=== PATIENT | female | born 1935 | race Caucasian/White ===

== ENCOUNTER 2016-09-13 17:55 | Emergency (ER) | payer MEDICARE ==
[2016-09-13] MEDS ORDERED: IPRATROPIUM-ALBUTEROL 3 ML NEB INHALATION STA (18:54)
[2016-09-13] MEDS ORDERED: methylPREDNISolone SOD SUCCI 125 MG/2 ML VIAL IV STA (19:04)
[2016-09-13] MEDS ORDERED: ALBUTEROL NEBULIZED 2.5 MG/3 ML INHALATION STA (19:05)
[2016-09-13] MEDS ORDERED: IPRATROPIUM 0.5 MG/2.5 ML NEBU INHALATION STA (19:05)
[2016-09-13 19:28] LABS: Basophils # (A) 0.1 k/uL (0-0.2); Basophils % (A) 1 %; CH 30.8; CHCM 34.3; Eosinophils # (A) 0.2 k/uL (0-0.7); Eosinophils % (A) 1 %; HGB 13.9 gm/dL (11.4-16.0); Luc # (Auto) 0.17; Luc % (Auto) 1; Lymphocytes # (A) 1.9 k/uL (1.0-4.8); Lymphocytes % (A) 14 %; MCH 29.8 pg (25.0-35.0); MCV 90.3 fL (80.0-100.0); Mean Platelet Volume 7.8; Monocytes # (A) 1.2 k/uL (0-1.0); Monocytes % (A) 9 %; Neutrophils # (A) 10.4 k/uL (1.3-7.7); Neutrophils % (A) 75 %; RBC 4.65 m/uL (3.80-5.40); RDW 15.1 % (11.5-15.5); WBC 13.8 k/uL (3.8-10.6)
--- NOTE | 2016-09-13 19:33 | ED ---
General Adult HPI <Denton Castillo - Last Filed: 09/13/16 21:25> - General Source: patient, RN notes reviewed Mode of arrival: wheelchair Limitations: no limitations <Deanne Domínguez - Last Filed: 09/13/16 21:44> - General Chief complaint: Shortness of Breath Stated complaint: SOB, cough Time Seen by Provider: 09/13/16 18:49 - History of Present Illness Initial comments: This is an 81-year-old female who presents with shortness of breath 2 days. Patient states that she has a history of COPD and this feels like a COPD exacerbation. Patient states she took 4 breathing treatments at home today but this has not helped her symptoms. Patient states she has also had a cough for 2 days, but denies fever/chills, headache. Patient also admits to congestion 2 days. Patient denies any sick contacts. Patient denies any recent chest pain , abdominal pain, nausea/vomiting/diarrhea, back pain, numbness, tingling, hematuria, headache, or visual changes, or any other complaints. (Deanne Domínguez) - Related Data Home Medications Medication Instructions Recorded Confirmed Apixaban [Eliquis] 5 mg PO BID 11/24/14 09/13/16 Potassium Chloride [Klor-Con 10] 10 meq PO DAILY 11/26/14 09/13/16 Fluticasone/Salmeterol [Advair 1 puff INHALATION RT-BID 12/14/14 09/13/16 500-50 Diskus] Omeprazole [PriLOSEC] 20 mg PO DAILY 06/06/15 09/13/16 Glimepiride [Amaryl] 2 mg PO BID 06/07/15 09/13/16 Albuterol Sulfate [Proair Hfa] 2 puff INHALATION RT-Q6H PRN 12/13/15 09/13/16 Levalbuterol Nebulized [Xopenex 1.25 mg INHALATION RT-TID PRN 12/13/15 09/13/16 Nebulized] Cyanocobalamin [Vitamin B-12] 500 mcg PO DAILY 05/20/16 09/13/16 Furosemide [Lasix] 40 mg PO BID 05/20/16 09/13/16 Nadolol [Corgard] 40 mg PO DAILY 09/09/16 01/03/17 Bullock Caplets 1 cap PO Q48H 05/20/16 09/13/16 Cholecalciferol [Vitamin D3] 5,000 unit PO DAILY 09/13/16 09/13/16 Previous Rx's Medication Instructions Recorded Verapamil [Isoptin] 80 mg PO TID #90 tab 12/16/15 Calcium Carbonate [Tums] 1,000 mg PO DAILY@1200 chew 07/22/16 predniSONE 40 mg PO DAILY 5 Days 09/13/16 Allergies Allergy/AdvReac Type Severity Reaction Status Date / Time diltiazem AdvReac Itching Verified 09/13/16 19:23 morphine AdvReac Confusion Verified 09/13/16 19:23 Review of Systems ROS Other: All systems not noted in ROS Statement are negative. <Denton Castillo - Last Filed: 09/13/16 21:25> ROS Other: All systems not noted in ROS Statement are negative. <Deanne Domínguez - Last Filed: 09/13/16 21:44> ROS Statement: Those systems with pertinent positive or pertinent negative responses have been documented in the HPI. Past Medical History Past Medical History: Atrial Fibrillation, Asthma, Chest Pain / Angina, Heart Failure, COPD, Diabetes Mellitus, GERD/Reflux, Hyperlipidemia, Hypertension, Myocardial Infarction ([place]), Osteoarthritis (OA), Pneumonia Additional Past Medical History / Comment(s): COPD, frequent fall with abrasions to L lower leg and L arm, Afib with RVR, NIIDM type II, osteoporosis, 2012 shingel, cardiac valvular disease(pt did'nt have knowlege of this), chronic anemia Last Myocardial Infarction Date:: 07/16/11 History of Any Multi-Drug Resistant Organisms: None Reported Past Surgical History: Appendectomy, Breast Surgery, Heart Catheterization, Tubal Ligation Additional Past Surgical History / Comment(s): benign lumpectomy rt breast, bronchoscopy 11/25/2014, colonoscopy, egd, bilat cataracts removed. 2010 VATS lt lung, 02/2011-cardiac cath-normal. Past Anesthesia/Blood Transfusion Reactions: No Reported Reaction Additional Past Anesthesia/Blood Transfusion Reaction / Comment(s): Pt has received blood in past without reaction Past Psychological History: No Psychological Hx Reported Additional Psychological History / Comment(s): Pt resides alone at [facility]. She uses either a cane or walker to ambulate. She drives. no outside services. Smoking Status: Never smoker Past Alcohol Use History: Occasional Past Drug Use History: None Reported - Past Family History Sister(s) Family Medical History: Cancer Additional Family Medical History / Comment(s): breast CA Mother Family Medical History: No Reported History Additional Family Medical History / Comment(s): from car accident Father Family Medical History: No Reported History Daughter(s) Family Medical History: Cancer Additional Family Medical History / Comment(s): breast CA <Deanne Domínguez - Last Filed: 09/13/16 21:44> General Exam <Denton Castillo - Last Filed: 09/13/16 21:25> Limitations: no limitations <Deanne Domínguez - Last Filed: 09/13/16 21:44> - General Exam Comments Initial Comments: General: The patient is awake and alert, in no distress, and does not appear acutely ill. Eye: Pupils are equal, round and reactive to light, extra-ocular movements are intact. No nystagmus. There is normal conjunctiva bilaterally. No signs of icterus. Mouth and throat: There are moist mucous membranes and no oral lesions. Neck: The neck is supple, there is no tenderness or JVD. Cardiovascular: There is a regular rate and rhythm. No murmur, rub or gallop is appreciated. Respiratory: Lung sounds are diminished with faint wheezes heard throughout, breath sounds are equal. No stridor, rales, or rhonchi. Gastrointestinal: Soft, non-distended, non-tender abdomen without masses or organomegaly noted. There is no rebound or guarding present. Bowel sounds are unremarkable. Musculoskeletal: Normal ROM, no tenderness. Strength 5/5. Sensation intact. Radial pulses equal bilaterally 2+. Neurological: A&O x 3. CN II-XII intact, There are no obvious motor or sensory deficits. Coordination appears grossly intact. Speech is normal. Skin: Skin is warm and dry and no rashes or lesions are noted. Psychiatric: Cooperative, appropriate mood & affect, normal judgment. (Deanne Domínguez) EKG Findings - EKG Comments: EKG Findings:: EKG was done at 1955 showing atrial fibrillation with a ventricular rate of 86 beats per minute, QRS duration 108, QTc 512. Lateral T wave inversion noted, previous EKG reviewed with similar findings. No acute ST changes. <Deanne Domínguez - Last Filed: 09/13/16 21:44> Medical Decision Making - Lab Data Result diagrams: 09/13/16 19:17 09/13/16 19:17 <Denton Castillo - Last Filed: 09/13/16 21:25> - Lab Data Result diagrams: 09/13/16 19:17 09/13/16 19:17 <Deanne Domínguez - Last Filed: 09/13/16 21:44> - Medical Decision Making Patient reevaluated by myself, Dr. Castillo. Patient resting comfortably in bed requesting discharge. Lung sounds with mild rhonchi. Results reviewed. Patient updated. (Denton Castillo) This is an 81-year-old female presents with exacerbation of COPD. On physical exam lung sounds are diminished with faint wheezing heard throughout. Patient' s O2 sat are 95% and respirations are 18. Patient is afebrile in the EC today. A chest x-ray was done and reviewed showing: No acute cardiopulmonary process. Suspect findings are chronic. Reported by Dr. Diaz. Patient was given 5 mg of albuterol and 0.5 of ipratropium nebulized. Patient was also given IV Solu-Medrol. Patient reported symptom relief after this. Patient's respiratory effort had improved at this point. Labs were drawn showing elevated white blood cell count at 13.8. Troponins and cardiac enzymes are negative. EKG was done at 195 showing atrial fibrillation with a ventricular rate of 86 beats per minute, QRS duration 108, QTc 512. Lateral T wave inversion noted, previous EKG reviewed with similar findings. No acute ST changes. After patient's breathing treatments and Solu-Medrol dose patient was feeling much better. Patient states she felt at baseline and was ready to go home. Patient' s O2 sats improved to 97% and patient's breathing was much more relaxed and lungs were clear to auscultation bilaterally. Discussed return parameters with patient and daughter who was also present in the room. Patient was given a prescription for prednisone. Discussed that patient follow up with PCP in one to 2 days or return to the [facility] for any worsening symptoms or for any further concerns. Discussed this case with attending physician Dr. Castillo who agrees with plan as stated above. (Deanen Domínguez) - Lab Data Lab Results 09/13/16 09/13/16 09/13/16 Range/Units 19:17 19:17 19:17 WBC 13.8 H (3.8-10.6) k/uL RBC 4.65 (3.80-5.40) m/uL Hgb 13.9 (11.4-16.0) gm/dL Hct 42.0 (34.0-46.0) % MCV 90.3 (80.0-100.0) fL MCH 29.8 (25.0-35.0) pg MCHC 33.0 (31.0-37.0) g/dL RDW 15.1 (11.5-15.5) % Plt Count 373 (150-450) k/uL Neutrophils % 75 % Lymphocytes % 14 % Monocytes % 9 % Eosinophils % 1 % Basophils % 1 % Neutrophils # 10.4 H (1.3-7.7) k/uL Lymphocytes # 1.9 (1.0-4.8) k/uL Monocytes # 1.2 H (0-1.0) k/uL Eosinophils # 0.2 (0-0.7) k/uL Basophils # 0.1 (0-0.2) k/uL PT (9.0-12.0) sec INR (<1.1) APTT (22.0-30.0) sec Sodium 141 (137-145) mmol/L Potassium 4.1 (3.5-5.1) mmol/L Chloride 100 (98-107) mmol/L Carbon Dioxide 27 (22-30) mmol/L Anion Gap 14 mmol/L BUN 23 H (7-17) mg/dL Creatinine 0.92 (0.52-1.04) mg/dL Est GFR (MDRD) Af Amer >60 (>60 ml/min/1.73 sqM) Est GFR (MDRD) Non-Af 59 (>60 ml/min/1.73 sqM) Glucose 129 H (74-99) mg/dL Calcium 9.5 (8.4-10.2) mg/dL Magnesium 1.8 (1.6-2.3) mg/dL Total Bilirubin 1.0 (0.2-1.3) mg/dL AST 21 (14-36) U/L ALT 34 (9-52) U/L Alkaline Phosphatase 93 (38-126) U/L Total Creatine Kinase 46 (30-135) U/L CK-MB (CK-2) 1.2 (0.0-2.4) ng/mL CK-MB (CK-2) Rel Index 2.6 Troponin I <0.012 (0.000-0.034) ng/mL Total Protein 7.2 (6.3-8.2) g/dL Albumin 4.3 (3.5-5.0) g/dL 09/13/16 Range/Units 19:17 WBC (3.8-10.6) k/uL RBC (3.80-5.40) m/uL Hgb (11.4-16.0) gm/dL Hct (34.0-46.0) % MCV (80.0-100.0) fL MCH (25.0-35.0) pg MCHC (31.0-37.0) g/dL RDW (11.5-15.5) % Plt Count (150-450) k/uL Neutrophils % % Lymphocytes % % Monocytes % % Eosinophils % % Basophils % % Neutrophils # (1.3-7.7) k/uL Lymphocytes # (1.0-4.8) k/uL Monocytes # (0-1.0) k/uL Eosinophils # (0-0.7) k/uL Basophils # (0-0.2) k/uL PT 10.9 (9.0-12.0) sec INR 1.1 (<1.1) APTT 23.5 (22.0-30.0) sec Sodium (137-145) mmol/L Potassium (3.5-5.1) mmol/L Chloride (98-107) mmol/L Carbon Dioxide (22-30) mmol/L Anion Gap mmol/L BUN (7-17) mg/dL Creatinine (0.52-1.04) mg/dL Est GFR (MDRD) Af Amer (>60 ml/min/1.73 sqM) Est GFR (MDRD) Non-Af (>60 ml/min/1.73 sqM) Glucose (74-99) mg/dL Calcium (8.4-10.2) mg/dL Magnesium (1.6-2.3) mg/dL Total Bilirubin (0.2-1.3) mg/dL AST (14-36) U/L ALT (9-52) U/L Alkaline Phosphatase (38-126) U/L Total Creatine Kinase (30-135) U/L CK-MB (CK-2) (0.0-2.4) ng/mL CK-MB (CK-2) Rel Index Troponin I (0.000-0.034) ng/mL Total Protein (6.3-8.2) g/dL Albumin (3.5-5.0) g/dL Disposition <Denton Castillo - Last Filed: 09/13/16 21:25> Time of Disposition: 21:24 <Deanne Domínguez - Last Filed: 09/13/16 21:44> Clinical Impression: Acute exacerbation of chronic obstructive pulmonary disease (COPD) Disposition: HOME SELF-CARE Condition: Good Instructions: COPD (Chronic Obstructive Pulmonary Disease) (ED) Prescriptions: predniSONE 40 mg PO DAILY 5 Days Referrals: Royal Farias MD [Primary Care Provider] - 1-2 days
--- NOTE | 2016-09-13 19:34 | XR ---
EXAMINATION TYPE: XR chest 2V DATE OF EXAM: 09/13/2016 7:10 PM COMPARISON: Prior chest x-ray 20 July 2016 HISTORY: Shortness of breath TECHNIQUE: Frontal and lateral views of the chest are obtained. FINDINGS: The heart is enlarged as on previous exam. Patchy density at the lung bases may reflect at electasis or scarring. Prominent lung markings suggestive of underlying COPD, is increased retrostern al airspace. There are overlying cardiac leads. IMPRESSION: No acute cardiopulmonary process. Suspect findings are chronic.
[2016-09-13 19:36] LABS: ALT 34 U/L (9-52); AST 21 U/L (14-36); Alkaline Phosphatase 93 U/L (38-126); Anion Gap 14 mmol/L; Blood Urea Nitrogen 23 mg/dL (7-17); Calcium 9.5 mg/dL (8.4-10.2); Carbon Dioxide 27 mmol/L (22-30); Chloride 100 mmol/L (98-107); Glucose 129 mg/dL (74-99); Magnesium 1.8 mg/dL (1.6-2.3); Non-African American GFR(MDRD) 59 (>60 ml/min/1.73 sqM); Potassium 4.1 mmol/L (3.5-5.1); Sodium 141 mmol/L (137-145); Total Protein 7.2 g/dL (6.3-8.2)
[2016-09-13 19:40] LABS: INR 1.1 (<1.1); Partial Thromboplastin Time 23.5 sec (22.0-30.0); Prothrombin Time 10.9 sec (9.0-12.0)
[2016-09-13 19:55] LABS: Creatine Kinase 46 U/L (30-135)
[2016-09-13 20:07] LABS: Creatine Kinase MB 1.2 ng/mL (0.0-2.4); Troponin I <0.012 ng/mL (0.000-0.034)
[2016-09-13 21:33] VITALS: BP 124/80; PULSE 94; RESP 16; TEMP 97.5
== END 2016-09-13 21:28 | disposition home or self-care (01) ==
LOC: EC 17:55
DX: J44.1 Chronic obstructive pulmonary disease with (acute) exacerbation (principal); I48.91 Unspecified atrial fibrillation; E11.9 Type 2 diabetes mellitus without complications; E78.5 Hyperlipidemia, unspecified; I10 Essential (primary) hypertension; I50.9 Heart failure, unspecified; J45.909 Unspecified asthma, uncomplicated; I25.2 Old myocardial infarction; M81.0 Age-related osteoporosis without current pathological fracture; K21.9 Gastro-esophageal reflux disease without esophagitis; Z88.5 Allergy status to narcotic agent; Z88.8 Allergy status to other drugs, medicaments and biological substances; Z79.01 Long term (current) use of anticoagulants; Z79.84 Long term (current) use of oral hypoglycemic drugs; Z98.61 Coronary angioplasty status; Z79.899 Other long term (current) drug therapy
CPT/HCPCS: 99285 ×2; 96374 ×2; 36415; 94640; 93005; 80053; 82550; 82553; 83735; 84484; 85025; 85610; 85730; 71020; J2930; 99284

== ENCOUNTER → 2016-11-02 | Outpatient (CLI) | payer MEDICARE ==
[~2016-11-02] MED LIST: DENOSUMAB 60 MG/ML 1 ML SYRINGE SQ ONE
[2016-11-02 14:12] VITALS: BP 123/67; PULSE 71; RESP 16; TEMP 97.7
== END | disposition home or self-care (01) ==
LOC: PROCWHC3 13:01
PROVIDERS: ATTEND Internal Medicine Endocrinology, Diabetes & Metabolism
DX: M81.0 Age-related osteoporosis without current pathological fracture (principal)
CPT/HCPCS: 96372; J0897

== ENCOUNTER 2017-01-03 18:18 | Inpatient (IN) | payer MEDICARE ==
[2017-01-03] MEDS ORDERED: IPRATROPIUM-ALBUTEROL 3 ML NEB INHALATION STA (18:37)
[2017-01-03 18:51] LABS: Basophils # (A) 0.1 k/uL (0-0.2); Basophils % (A) 0 %; CH 30.1; Eosinophils # (A) 0.1 k/uL (0-0.7); Eosinophils % (A) 1 %; HGB 14.7 gm/dL (11.4-16.0); Luc # (Auto) 0.22; Luc % (Auto) 1; Lymphocytes # (A) 1.6 k/uL (1.0-4.8); Lymphocytes % (A) 9 %; MCH 30.5 pg (25.0-35.0); MCHC 34.3 g/dL (31.0-37.0); MCV 88.9 fL (80.0-100.0); Mean Platelet Volume 7.3; Monocytes # (A) 1.4 k/uL (0-1.0); Monocytes % (A) 8 %; Neutrophils # (A) 14.5 k/uL (1.3-7.7); Neutrophils % (A) 81 %; RBC 4.84 m/uL (3.80-5.40); RDW 14.1 % (11.5-15.5); WBC 17.8 k/uL (3.8-10.6); WBC (Perox) 17.65
[2017-01-03 19:00] LABS: ALT 28 U/L (9-52); AST 23 U/L (14-36); Alkaline Phosphatase 78 U/L (38-126); Anion Gap 11 mmol/L; Blood Urea Nitrogen 18 mg/dL (7-17); Calcium 9.3 mg/dL (8.4-10.2); Carbon Dioxide 25 mmol/L (22-30); Chloride 104 mmol/L (98-107); Glucose 121 mg/dL (74-99); Magnesium 1.7 mg/dL (1.6-2.3); Non-African American GFR(MDRD) >60 (>60 ml/min/1.73 sqM); Potassium 3.6 mmol/L (3.5-5.1); Sodium 140 mmol/L (137-145); Total Bilirubin 1.1 mg/dL (0.2-1.3); Total Protein 7.3 g/dL (6.3-8.2)
[2017-01-03 19:04] LABS: INR 1.1 (<1.1); Partial Thromboplastin Time 23.9 sec (22.0-30.0); Prothrombin Time 11.2 sec (9.0-12.0)
[2017-01-03 19:11] LABS: Creatine Kinase 43 U/L (30-135)
[2017-01-03 19:24] LABS: Creatine Kinase MB 0.9 ng/mL (0.0-2.4); Troponin I <0.012 ng/mL (0.000-0.034)
--- NOTE | 2017-01-03 19:41 | XR ---
EXAMINATION TYPE: XR chest 1V portable DATE OF EXAM: 01/03/2017 7:20 PM HISTORY: Shortness of breath. COMPARISON: 09/13/2016 TECHNIQUE: Single view of the chest is submitted. FINDINGS: Demonstrated are scattered senescent parenchymal change. There is no evidence for focal infiltrate. The heart is stable. Hilar and mediastinal structures are within normal limits. Degenerative changes are seen of the dorsal spine. IMPRESSION: 1. Chronic changes without evidence for acute pulmonary disease.
[2017-01-03] MEDS ORDERED: ALBUTEROL NEBULIZED 2.5 MG/3 ML INHALATION STA (21:04)
[2017-01-03] MEDS ORDERED: predniSONE 20 MG TAB PO STA (21:04)
[2017-01-03] MEDS ORDERED: ALBUTEROL NEBULIZED 2.5 MG/3 ML INHALATION PRN (21:05)
[2017-01-03] MEDS ORDERED: FUROSEMIDE 10 MG/ML 4 ML VIAL IV STA (21:05)
--- NOTE | 2017-01-03 21:09 | ED ---
SOB HPI - General Chief Complaint: Shortness of Breath Stated Complaint: SOB Time Seen by Provider: 01/03/17 18:30 Source: patient, EMS Mode of arrival: EMS Limitations: no limitations - History of Present Illness Initial Comments: This patient is an 81-year-old woman with history of asthma, COPD, atrial fibrillation and CHF who comes in today to be evaluated for shortness of breath that is been getting worse over the past 2 days. Patient states she also has had a little bit of a nonproductive cough and some chest tightness. Patient does not describe it as pain, sensation is mild, constant. She has not noticed stating that makes it get better or worse. The breathing does seem to get a little worse if she is lying flat. MD Complaint: shortness of breath, cough, chest pain Onset/Timin -: days(s) Quality: other (Tight) Consistency: constant Improves With: nothing Worsens With: lying flat Known History Of: COPD, asthma, congestive heart failure Associated Symptoms: cough - Related Data Home Oxygen Therapy: No Home Medications Medication Instructions Recorded Confirmed Apixaban [Eliquis] 5 mg PO BID 11/24/14 01/03/17 Potassium Chloride [Klor-Con 10] 10 meq PO DAILY 11/26/14 01/03/17 Fluticasone/Salmeterol [Advair 1 puff INHALATION RT-BID 12/14/14 01/03/17 500-50 Diskus] Omeprazole [PriLOSEC] 20 mg PO DAILY 06/06/15 01/03/17 Glimepiride [Amaryl] 2 mg PO BID 06/07/15 01/03/17 Albuterol Sulfate [Proair Hfa] 2 puff INHALATION RT-Q6H PRN 12/13/15 01/03/17 Levalbuterol Nebulized [Xopenex 1.25 mg INHALATION RT-TID PRN 12/13/15 01/03/17 Nebulized] Cyanocobalamin [Vitamin B-12] 500 mcg PO DAILY 05/20/16 01/03/17 Furosemide [Lasix] 40 mg PO DAILY 05/20/16 01/03/17 Nadolol [Corgard] 40 mg PO DAILY 05/20/16 01/03/17 Bullock Caplets 1 cap PO Q48H 05/20/16 01/03/17 Cholecalciferol [Vitamin D3] 5,000 unit PO DAILY 09/13/16 01/03/17 Previous Rx's Medication Instructions Recorded Verapamil [Isoptin] 80 mg PO TID #90 tab 12/16/15 Allergies Allergy/AdvReac Type Severity Reaction Status Date / Time diltiazem AdvReac Itching Verified 01/03/17 19:30 morphine AdvReac Confusion Verified 01/03/17 19:30 Review of Systems ROS Statement: Those systems with pertinent positive or pertinent negative responses have been documented in the HPI. ROS Other: All systems not noted in ROS Statement are negative. Constitutional: Reports: weakness. Denies: fever, chills Respiratory: Reports: cough, dyspnea, wheezes. Denies: hemoptysis Cardiovascular: Reports: chest pain, palpitations, orthopnea. Denies: edema, syncope Gastrointestinal: Denies: abdominal pain, vomiting, diarrhea Genitourinary: Denies: dysuria, hematuria Musculoskeletal: Denies: back pain Skin: Denies: rash Neurological: Denies: headache, weakness, numbness Past Medical History Past Medical History: Atrial Fibrillation, Asthma, Chest Pain / Angina, Heart Failure, COPD, Diabetes Mellitus, GERD/Reflux, Hyperlipidemia, Hypertension, Myocardial Infarction ([place]), Osteoarthritis (OA), Pneumonia Additional Past Medical History / Comment(s): COPD, frequent fall with abrasions to L lower leg and L arm, Afib with RVR, NIIDM type II, osteoporosis, 2013 shingel, cardiac valvular disease(pt did'nt have knowlege of this), chronic anemia Last Myocardial Infarction Date:: 07/16/11 History of Any Multi-Drug Resistant Organisms: None Reported Past Surgical History: Appendectomy, Breast Surgery, Heart Catheterization, Tubal Ligation Additional Past Surgical History / Comment(s): benign lumpectomy rt breast, bronchoscopy 11/25/2014, colonoscopy, egd, bilat cataracts removed. 2010 VATS lt lung, 02/2011-cardiac cath-normal. Past Anesthesia/Blood Transfusion Reactions: No Reported Reaction Additional Past Anesthesia/Blood Transfusion Reaction / Comment(s): Pt has received blood in past without reaction Past Psychological History: No Psychological Hx Reported Additional Psychological History / Comment(s): Pt resides alone at [facility]. She uses either a cane or walker to ambulate. She drives. no outside services. Smoking Status: Never smoker Past Alcohol Use History: None Reported Past Drug Use History: None Reported - Past Family History Sister(s) Family Medical History: Cancer Additional Family Medical History / Comment(s): breast CA Mother Family Medical History: No Reported History Additional Family Medical History / Comment(s): from car accident Father Family Medical History: No Reported History Daughter(s) Family Medical History: Cancer Additional Family Medical History / Comment(s): breast CA General Exam Limitations: no limitations General appearance: alert, in distress (Patient appears in mild respiratory distress, being a) Head exam: Present: atraumatic, normocephalic Neck exam: Present: normal inspection Respiratory exam: Present: respiratory distress (Tachypnea), wheezes, rales ( Bilateral bases), accessory muscle use. Absent: rhonchi, stridor Cardiovascular Exam: Present: normal rhythm, tachycardia, normal heart sounds. Absent: systolic murmur, diastolic murmur, rubs, gallop GI/Abdominal exam: Present: soft. Absent: distended, tenderness, guarding, rebound, mass Extremities exam: Present: normal inspection, normal capillary refill. Absent: pedal edema, calf tenderness Back exam: Present: normal inspection. Absent: CVA tenderness (R), CVA tenderness (L) Neurological exam: Present: alert Psychiatric exam: Present: anxious Skin exam: Present: warm, dry, intact, normal color. Absent: rash, cyanosis, diaphoretic, erythema, petechiae, pallor, mottled Course Vital Signs 01/03/17 01/03/17 01/03/17 18:20 18:37 18:51 Temperature 97.8 F Pulse Rate 85 100 98 Respiratory 20 27 H Rate Blood Pressure 107/47 O2 Sat by Pulse 94 L 96 Oximetry 01/03/17 01/03/17 01/03/17 18:59 19:09 20:56 Temperature 98.3 F 99.4 F Pulse Rate 104 H 88 105 H Respiratory 20 18 Rate Blood Pressure 108/66 122/86 O2 Sat by Pulse 97 95 Oximetry 01/03/17 21:10 Temperature Pulse Rate 96 Respiratory Rate Blood Pressure O2 Sat by Pulse Oximetry Medical Decision Making - Lab Data Result diagrams: 01/03/17 18:35 01/03/17 18:35 Lab Results 04/01/03/17 01/03/17 Range/Units 18:35 18:35 18:35 WBC 17.8 H (3.8-10.6) k/uL RBC 4.84 (3.80-5.40) m/uL Hgb 14.7 (11.4-16.0) gm/dL Hct 43.0 (34.0-46.0) % MCV 88.9 (80.0-100.0) fL MCH 30.5 (25.0-35.0) pg MCHC 34.3 (31.0-37.0) g/dL RDW 14.1 (11.5-15.5) % Plt Count 369 (150-450) k/uL Neutrophils % 81 % Lymphocytes % 9 % Monocytes % 8 % Eosinophils % 1 % Basophils % 0 % Neutrophils # 14.5 H (1.3-7.7) k/uL Lymphocytes # 1.6 (1.0-4.8) k/uL Monocytes # 1.4 H (0-1.0) k/uL Eosinophils # 0.1 (0-0.7) k/uL Basophils # 0.1 (0-0.2) k/uL PT (9.0-12.0) sec INR (<1.1) APTT (22.0-30.0) sec D-Dimer (<0.60) mg/L FEU Sodium 140 (137-145) mmol/L Potassium 3.6 (3.5-5.1) mmol/L Chloride 104 (98-107) mmol/L Carbon Dioxide 25 (22-30) mmol/L Anion Gap 11 mmol/L BUN 18 H (7-17) mg/dL Creatinine 0.85 (0.52-1.04) mg/dL Est GFR (MDRD) Af Amer >60 (>60 ml/min/1.73 sqM) Est GFR (MDRD) Non-Af >60 (>60 ml/min/1.73 sqM) Glucose 121 H (74-99) mg/dL Calcium 9.3 (8.4-10.2) mg/dL Magnesium 1.7 (1.6-2.3) mg/dL Total Bilirubin 1.1 (0.2-1.3) mg/dL AST 23 (14-36) U/L ALT 28 (9-52) U/L Alkaline Phosphatase 78 (38-126) U/L Total Creatine Kinase 43 (30-135) U/L CK-MB (CK-2) 0.9 (0.0-2.4) ng/mL CK-MB (CK-2) Rel Index 2.1 Troponin I <0.012 (0.000-0.034) ng/mL NT-Pro-B Natriuret Pep pg/mL Total Protein 7.3 (6.3-8.2) g/dL Albumin 4.2 (3.5-5.0) g/dL 01/03/17 01/03/17 Range/Units 18:35 18:35 WBC (3.8-10.6) k/uL RBC (3.80-5.40) m/uL Hgb (11.4-16.0) gm/dL Hct (34.0-46.0) % MCV (80.0-100.0) fL MCH (25.0-35.0) pg MCHC (31.0-37.0) g/dL RDW (11.5-15.5) % Plt Count (150-450) k/uL Neutrophils % % Lymphocytes % % Monocytes % % Eosinophils % % Basophils % % Neutrophils # (1.3-7.7) k/uL Lymphocytes # (1.0-4.8) k/uL Monocytes # (0-1.0) k/uL Eosinophils # (0-0.7) k/uL Basophils # (0-0.2) k/uL PT 11.2 (9.0-12.0) sec INR 1.1 (<1.1) APTT 23.9 (22.0-30.0) sec D-Dimer 0.19 (<0.60) mg/L FEU Sodium (137-145) mmol/L Potassium (3.5-5.1) mmol/L Chloride (98-107) mmol/L Carbon Dioxide (22-30) mmol/L Anion Gap mmol/L BUN (7-17) mg/dL Creatinine (0.52-1.04) mg/dL Est GFR (MDRD) Af Amer (>60 ml/min/1.73 sqM) Est GFR (MDRD) Non-Af (>60 ml/min/1.73 sqM) Glucose (74-99) mg/dL Calcium (8.4-10.2) mg/dL Magnesium (1.6-2.3) mg/dL Total Bilirubin (0.2-1.3) mg/dL AST (14-36) U/L ALT (9-52) U/L Alkaline Phosphatase (38-126) U/L Total Creatine Kinase (30-135) U/L CK-MB (CK-2) (0.0-2.4) ng/mL CK-MB (CK-2) Rel Index Troponin I (0.000-0.034) ng/mL NT-Pro-B Natriuret Pep 3550 pg/mL Total Protein (6.3-8.2) g/dL Albumin (3.5-5.0) g/dL - EKG Data -: EKG Interpreted by [facility] EKG shows normal: axis (Normal), intervals (Normal), ST-T waves (There are lateral T inversions) Rate: tachycardia (Rate 101 bpm) Interpretation: LVH, other (The underlying rhythm is atrial fibrillation with a rate approximately 11 bpm) Disposition Clinical Impression: Congestive heart failure (CHF), COPD exacerbation, Leukocytosis Disposition: ADMITTED IP TO THIS HOSP Condition: Fair Referrals: Royal Farias MD [Primary Care Provider] - 1-2 days
[2017-01-03 21:20] LABS: Appearance,Urine Clear (Clear); Bilirubin,Urine Negative (Negative); Glucose,Urine (UA) Negative (Negative); Ketones,Urine 1+ (Negative); Leukocyte Esterase,Urine Moderate (Negative); Mucus,Urine Rare /hpf; Nitrite,Urine Negative (Negative); Particle Count 1053; Protein,Urine Negative (Negative); Specific Gravity,Urine 1.014 (1.001-1.035); Squamous Epithelial Cell,Urine <1 /hpf (0-4); UA Billing (MACRO vs. MICRO) MICRO; Urobilinogen,Urine <2.0 mg/dL (<2.0); WBC,Urine 8 /hpf (0-5)
[2017-01-03] MEDS ORDERED: IPRATROPIUM-ALBUTEROL 3 ML NEB INHALATION PRN (23:36)
[2017-01-04] MEDS ORDERED: IPRATROPIUM-ALBUTEROL 3 ML NEB INHALATION SCH
[2017-01-04] MEDS: IPRATROPIUM-ALBUTEROL 3 ML NEB INHALATION SCH ×4 (07:18→20:04)
[2017-01-04 07:33] LABS: Glucose,Whole Blood 155 mg/dL (75-99)
[2017-01-04] MEDS: AZITHROMYCIN 500 MG TAB PO SCH (08:27)
[2017-01-04] MEDS: predniSONE 20 MG TAB PO SCH (08:27)
[2017-01-04] MEDS: GLIMEPIRIDE 2 MG TAB PO SCH ×2 (09:09→21:12)
[2017-01-04] MEDS: NADOLOL 20 MG TAB PO SCH (09:09)
[2017-01-04] MEDS: VERAPAMIL 80 MG TAB PO SCH ×3 (09:09→21:12)
[2017-01-04] MEDS: FUROSEMIDE 40 MG TAB PO SCH (09:09)
[2017-01-04] MEDS: POTASSIUM CHLORIDE ER 10 MEQ TAB.ER.PRT PO SCH (09:09)
[2017-01-04] MEDS: CYANOCOBALAMIN 500 MCG TAB PO SCH (11:51)
[2017-01-04] MEDS: CHOLECALCIFEROL 1,000 UNIT TAB PO SCH (11:51)
[2017-01-04 11:53] LABS: Glucose,Whole Blood 110 mg/dL (75-99)
[2017-01-04 17:14] LABS: Glucose,Whole Blood 189 mg/dL (75-99)
--- NOTE | 2017-01-04 17:51 | P.CNPUL ---
History of Present Illness Consult date: 01/04/17 Reason for consult: dyspnea History of present illness: 81-year-old female patient with known history of COPD/asthma who was late test in the hospital July 2016 for an acute COPD exacerbation. The patient has been maintained on a combination of Advair and Ventolin about treatments around the clock on outpatient basis. The patient was in a good state of health and she was doing well till approximately 2 days ago when she developed flulike symptoms with nasal congestion and sore throat and following that she had increased cough congestion and progressive wheezing typically of an acute COPD exacerbation. The patient had no change in mental status. No angina. No fever. No chills. No hemoptysis. No pleurisy. No swelling lower extremities. No DVT. No pulmonary embolism. No recent falls. Chest x-ray is free of any acute pulmonary infiltrates. Review of Systems 12 point review of system was done. No angina. No change in mental status. No falls. No dysuria frequency or urgency. No nausea vomiting or abdominal pain. No GI bleeding. No any stones. No nephrolithiasis. No hematuria. No other complaints otherwise. Past Medical History Past Medical History: Atrial Fibrillation, Asthma, Heart Failure, COPD, Diabetes Mellitus, GERD/Reflux, Hyperlipidemia, Hypertension, Myocardial Infarction ([place]), Osteoarthritis (OA), Pneumonia Additional Past Medical History / Comment(s): COPD, frequent fall with abrasions to L lower leg and L arm, history of Afib with RVR, NIIDM type II, osteoporosis, 2012, preserved LV function with an ejection fraction of 50-55%, severely dilated LA and mild degree of pulmonary hypertension. There is also borderline concentric left ventricle hypertrophy on previous echocardiogram, chronic anemia Last Myocardial Infarction Date:: 07/16/11 History of Any Multi-Drug Resistant Organisms: None Reported Past Surgical History: Appendectomy, Breast Surgery, Heart Catheterization, Tubal Ligation Additional Past Surgical History / Comment(s): benign lumpectomy rt breast, bronchoscopy 11/25/2014, colonoscopy, egd, bilat cataracts removed. 2010 VATS lt lung, 02/2011-cardiac cath-normal. Past Anesthesia/Blood Transfusion Reactions: No Reported Reaction Additional Past Anesthesia/Blood Transfusion Reaction / Comment(s): Pt has received blood in past without reaction Past Psychological History: No Psychological Hx Reported Additional Psychological History / Comment(s): Pt resides alone at [facility]. She uses either a cane or walker to ambulate. She drives. no outside services. Smoking Status: Never smoker Past Alcohol Use History: None Reported Past Drug Use History: None Reported - Past Family History Sister(s) Family Medical History: Cancer Additional Family Medical History / Comment(s): breast CA Mother Family Medical History: No Reported History Additional Family Medical History / Comment(s): from car accident Father Family Medical History: No Reported History Daughter(s) Family Medical History: Cancer Additional Family Medical History / Comment(s): breast CA Medications and Allergies Home Medications Medication Instructions Recorded Confirmed Type Apixaban [Eliquis] 5 mg PO BID 11/24/14 01/03/17 History Potassium Chloride [Klor-Con 10] 10 meq PO DAILY 11/26/14 01/03/17 History Fluticasone/Salmeterol [Advair 1 puff INHALATION RT-BID 12/14/14 01/03/17 History 500-50 Diskus] Omeprazole [PriLOSEC] 20 mg PO DAILY 06/06/15 01/03/17 History Glimepiride [Amaryl] 2 mg PO BID 06/07/15 01/03/17 History Albuterol Sulfate [Proair Hfa] 2 puff INHALATION RT-Q6H PRN 12/13/15 01/03/17 History Levalbuterol Nebulized [Xopenex 1.25 mg INHALATION RT-TID PRN 12/13/15 01/03/17 History Nebulized] Cyanocobalamin [Vitamin B-12] 500 mcg PO DAILY 05/20/16 01/03/17 History Furosemide [Lasix] 40 mg PO DAILY 05/20/16 01/03/17 History Nadolol [Corgard] 40 mg PO DAILY 05/20/16 01/03/17 History Bullock Caplets 1 cap PO Q48H 05/20/16 01/03/17 History Cholecalciferol [Vitamin D3] 5,000 unit PO DAILY 09/13/16 01/03/17 History Allergies Allergy/AdvReac Type Severity Reaction Status Date / Time diltiazem AdvReac Itching Verified 01/03/17 19:30 morphine AdvReac Confusion Verified 01/03/17 19:30 Physical Exam Vitals: Vital Signs Temp Pulse Pulse Resp BP BP Pulse Ox 01/04/17 15:56 92 01/04/17 15:44 92 01/04/17 15:00 97.6 F 81 16 123/61 95 01/04/17 10:56 96 01/04/17 10:41 96 01/04/17 07:28 92 01/04/17 07:18 92 01/04/17 07:00 97.4 F L 91 16 112/55 93 L 01/03/17 22:15 97.2 F L 107 H 16 115/66 96 01/03/17 21:41 98.7 F 96 18 100 01/03/17 21:17 101 H 01/03/17 21:10 96 Intake and Output 01/04/17 01/04/17 01/04/17 06:59 14:59 22:59 Other: # Voids 2 2 Weight 70 kg The patient there is obese and she is appeared well nourished and normally developed. Vital signs as documented. Head exam is unremarkable. No scleral icterus or corneal arcus noted. Neck is without jugular venous distension, thyromegaly, or carotid bruits. Carotid upstrokes are brisk bilaterally. lungs sounds are diminished bilaterally along with some prolongation of a exhalation and extremity wheezes bilaterally.. Cardiac exam reveals the PMI to be normally sized and situated. Rhythm is regular. First and second heart sounds normal. No murmurs, rubs or gallops. Abdominal exam reveals normal bowel sounds, no masses , no organomegaly and no aortic enlargement. Extremities are nonedematous and both femoral and pedal pulses are normal. Results - Laboratory Findings CBC and BMP: 01/03/17 18:35 01/03/17 18:35 PT/INR, D-dimer PT 11.2 sec (9.0-12.0) 01/03/17 18:35 INR 1.1 (<1.1) 01/03/17 18:35 D-Dimer 0.19 mg/L FEU (<0.60) 01/03/17 18:35 Abnormal lab findings: Abnormal Labs 01/04/17 01/04/17 01/04/17 07:32 11:52 17:12 POC Glucose (mg/dL) 155 H 110 H 189 H - Diagnostic Findings Chest x-ray: image reviewed Assessment and Plan Plan: Assessment 1 acute COPD exacerbation with secondary shortness of breath. 2 morbid obesity 3 chronic atrial fibrillation 4 coronary artery disease with previous myocardial infarction 5 diabetes mellitus 6 hyperlipidemia 7 hypertension 8 osteoarthritis 9 mild secondary pulmonary hypertension Plan The patient's overall COPD exacerbations mild. Continue the prednisone burst taper. Agree on the antibiotic coverage. Agree on the bronchodilators. This is a mild exacerbation and ultimately the patient improved. We'll monitor the white cell count. Reevaluated condition is stable she can be discharged home tomorrow.
--- NOTE | 2017-01-04 18:35 | HP ---
DATE OF ADMISSION: 01/03/2017 PRESENTING COMPLAINT: Short of breath, wheezing. HISTORY OF PRESENTING COMPLAINT: This is a very pleasant 81-year-old patient whose chronic stable medical conditions include atrial fibrillation, GERD, hyperlipidemia, hypertension, diabetes, type 2. Patient's family doctor is Dr. Farias. Patient ( ) felt like a cold coming on, developed a cough with sputum production, wheezing. Denies any fever, appetite and this progressed over the course of 3 or 4 days, becoming worse. Patient was given a breathing treatment in the ER, with which she feels a bit better. Feels a bit tired. REVIEW OF SYSTEMS: CONSTITUTIONAL: Tired. HEENT: None. RESPIRATORY: As above. CARDIOVASCULAR: None. GASTROINTESTINAL: Heartburn. GENITOURINARY: ( ) joints. DERMATOLOGICAL: None. HEMATOLOGIC: None. LYMPHATICS: None. PSYCHIATRY: None. NEUROLOGICAL: None. PAST MEDICAL HISTORY: 1. Atrial fibrillation. 2. Asthma. 3. GERD. 4. Hyperlipidemia. 5. Hypertension. 6. Osteoarthritis. 7. Diabetes mellitus, type 2. 8. Osteoporosis. 9. Shingles. PAST SURGICAL HISTORY: 1. Appendectomy. 2. Breast surgery. 3. Cardiac catheterization. 4. Tubal ligation. 5. Right breast lumpectomy. 6. EGD. 7. Bilateral cataract removal. 8. Cardiac catheterization in 2010 showing normal coronaries. SOCIAL HISTORY: Lives alone. No smoking or alcohol. FAMILY HISTORY: Breast cancer. HOME MEDICATIONS: 1. Isoptin 80 mg p.o. t.i.d. 2. Potassium 10 mEq p.o. daily. 3. Bullock Caplets 1 capsule p.o. q.48 hours. 4. Prilosec 20 mg p.o. daily. 5. Corgard 40 mg p.o. daily. 6. Xopenex 1.25 nebulizer t.i.d. p.r.n. 7. Amaryl 2 mg p.o. b.i.d. 8. Lasix 40 mg p.o. daily. 9. Advair 500/50 one puff b.i.d. 10. B12 500 mcg p.o. daily. 11. Vitamin D3 5000 units p.o. daily. 12. Eliquis 5 mg p.o. b.i.d. 13. ProAir 2 puffs q.6 p.r.n. ALLERGIES: CARDIZEM and MORPHINE. PHYSICAL EXAMINATION: VITAL SIGNS ON PRESENTATION: Temperature 97.8, pulse 85, respiration 20, blood pressure 107/47, pulse ox 94% on 2 L. GENERAL APPEARANCE: Average build. Sitting up, tired. EYES: Pupils equal. Conjunctivae normal. HEENT: External appearance of nose and ears normal. Oral cavity normal. NECK: JVD not raised. Mass not palpable. RESPIRATORY: Effort increased. LUNGS: Decreased breath sounds. Prolonged expiration and wheezing. CARDIOVASCULAR: Heart sounds irregular. No edema. ABDOMEN: Soft, nontender. Liver and spleen not palpable. LYMPHATICS: No lymph node palpable in neck or axillae. PSYCHIATRY: Alert and oriented x3. Mood and affect normal. NEUROLOGICAL: Pupils equal. Cranial nerves grossly intact. Power and sensation grossly intact. MUSCULOSKELETAL: Evidence of osteoarthritis, especially in the hands. INVESTIGATIONS: White count 17.8, hemoglobin 14.7. Potassium 3.6. BUN 18, creatinine 0.85. Accu-Cheks noted. Pro BNP 3550. UA positive for leukocyte esterase. EKG shows atrial fibrillation, rate of 101. Chest x-ray, portable: no obvious infiltrates. ASSESSMENT: 1. Acute exacerbation of moderate persistent asthma. May be a viral exacerbation. 2. Persistent atrial fibrillation, chronically on anticoagulation. 3. Gastroesophageal reflux disease. 4. Hyperlipidemia, chronic. 5. Essential hypertension. 6. Primary osteoarthritis in multiple joints, bilateral. 7. Diabetes mellitus, type 2, on oral hypoglycemic. 8. Osteoporosis. PLAN: Patient is put on nebulized bronchodilators, steroids. Home medications are resumed. Care was discussed with the patient. Will follow.
[2017-01-04] MEDS: SYMBICORT 160-4.5 MCG INHALER INHALATION SCH (20:04)
[2017-01-04 20:42] LABS: Glucose,Whole Blood 213 mg/dL (75-99)
[2017-01-04] MEDS: APIXABAN 5 MG TAB PO SCH (21:12)
[2017-01-05 06:56] LABS: Glucose,Whole Blood 79 mg/dL (75-99)
[2017-01-05] MEDS: APIXABAN 5 MG TAB PO SCH (07:24)
[2017-01-05] MEDS: FUROSEMIDE 40 MG TAB PO SCH (07:25)
[2017-01-05] MEDS: AZITHROMYCIN 500 MG TAB PO SCH (07:25)
[2017-01-05] MEDS: predniSONE 20 MG TAB PO SCH (07:25)
[2017-01-05] MEDS: GLIMEPIRIDE 2 MG TAB PO SCH (07:25)
[2017-01-05] MEDS: POTASSIUM CHLORIDE ER 10 MEQ TAB.ER.PRT PO SCH (07:25)
[2017-01-05] MEDS ORDERED: PANTOPRAZOLE 40 MG TABLET PO SCH (07:30)
[2017-01-05] MEDS: IPRATROPIUM-ALBUTEROL 3 ML NEB INHALATION SCH ×3 (08:08→16:23)
[2017-01-05] MEDS: SYMBICORT 160-4.5 MCG INHALER INHALATION SCH (08:08)
[2017-01-05] MEDS: VERAPAMIL 80 MG TAB PO SCH ×2 (08:29→16:07)
[2017-01-05] MEDS: NADOLOL 20 MG TAB PO SCH (08:29)
[2017-01-05] MEDS: CHOLECALCIFEROL 1,000 UNIT TAB PO SCH (11:16)
[2017-01-05] MEDS: CYANOCOBALAMIN 500 MCG TAB PO SCH (11:16)
[2017-01-05 11:26] LABS: Glucose,Whole Blood 148 mg/dL (75-99)
--- NOTE | 2017-01-05 13:00 | P.PN ---
Subjective 81-year-old female patient with known history of COPD/asthma who was late test in the hospital July 2016 for an acute COPD exacerbation. The patient has been maintained on a combination of Advair and Ventolin about treatments around the clock on outpatient basis. The patient was in a good state of health and she was doing well till approximately 2 days ago when she developed flulike symptoms with nasal congestion and sore throat and following that she had increased cough congestion and progressive wheezing typically of an acute COPD exacerbation. The patient had no change in mental status. No angina. No fever. No chills. No hemoptysis. No pleurisy. No swelling lower extremities. No DVT. No pulmonary embolism. No recent falls. Chest x-ray is free of any acute pulmonary infiltrates. On 01/05/2017, the patient is being seen in follow-up. The patient is doing very well. She is less short of breath compared to yesterday. No chest pain. Minimal cough and chest congestion still present. No fever chills or night sweats. No angina. No nausea. No vomiting. No change in mental status. She is on oral prednisone. She is also bronchodilators around the clock and her outpatient medication includes Advair discus and albuterol solution when necessary Objective - Vital Signs Vital signs: Vital Signs Temp 96.5 F L 01/05/17 07:00 Pulse 76 01/05/17 11:58 Resp 14 01/05/17 07:00 BP 116/71 01/05/17 07:00 Pulse Ox 95 01/05/17 11:13 Intake & Output 01/04/17 01/05/17 01/05/17 18:59 06:59 18:59 Weight 70.5 kg Other: # Voids 2 1 - Exam The patient there is obese and she is appeared well nourished and normally developed. Vital signs as documented. Head exam is unremarkable. No scleral icterus or corneal arcus noted. Neck is without jugular venous distension, thyromegaly, or carotid bruits. Carotid upstrokes are brisk bilaterally. lungs sounds are diminished bilaterally along with some prolongation of a exhalation and extremity wheezes bilaterally.. Cardiac exam reveals the PMI to be normally sized and situated. Rhythm is regular. First and second heart sounds normal. No murmurs, rubs or gallops. Abdominal exam reveals normal bowel sounds, no masses , no organomegaly and no aortic enlargement. Extremities are nonedematous and both femoral and pedal pulses are normal. - Labs CBC & Chem 7: 01/03/17 18:35 01/03/17 18:35 Labs: Abnormal Lab Results - Last 24 Hours (Table) 01/04/17 01/04/17 01/05/17 Range/Units 17:12 20:41 11:25 POC Glucose (mg/dL) 189 H 213 H 148 H (75-99) mg/dL Assessment and Plan Plan: Assessment 1 acute COPD exacerbation with secondary shortness of breath. 2 morbid obesity 3 chronic atrial fibrillation 4 coronary artery disease with previous myocardial infarction 5 diabetes mellitus 6 hyperlipidemia 7 hypertension 8 osteoarthritis 9 mild secondary pulmonary hypertension Plan Patient is significantly improved. Discharge the patient home on a prednisone burst taper, Advair maintenance and albuterol nebulized treatments 4 times a day [id number]. We'll continue to follow.
[2017-01-05 15:21] VITALS: BP 134/65; PULSE 73; RESP 16; TEMP 97
--- NOTE | 2017-01-06 13:48 | DS ---
DATE OF ADMISSION: 01/03/2017 DATE OF DISCHARGE: 01/05/2017 FINAL DIAGNOSES: 1. Acute exacerbation of moderate persistent asthma, possibly ( ) exacerbation. 2. Paroxysmal atrial fibrillation, chronically on anticoagulation. 3. Gastroesophageal reflux disease. 4. Hyperlipidemia, chronic. 5. Essential hypertension. 6. Primary osteoarthritis of multiple joints, bilateral. 7. Diabetes mellitus type 2, on oral hypoglycemic. 8. Osteoporosis. CONSULTATION: Dr. Irene from Pulmonary. HOSPITAL COURSE: This patient presented with asthma exacerbation, doing much better at the time of discharge. On examination, lungs decreased breath sounds. No wheezing. PSYCH: Alert and oriented x3. Patient doing much better at the time of discharge. Care was discussed with the patient. DISCHARGE MEDICATIONS: 1. Eliquis 5 mg p.o. b.i.d. 2. Klor-Con 10 mEq p.o. daily. 3. Advair 500-50 one puff b.i.d. 4. Prilosec 20 mg p.o. daily. 5. Amaryl 2 mg p.o. b.i.d. 6. ProAir 2 puffs q.6 p.r.n. 7. Isoptin 80 mg p.o. t.i.d. 8. Vitamin B12 five hundred mcg p.o. daily. 9. Lasix 40 mg p.o. daily. 10. Corgard 40 mg p.o. daily. 11. Bullock caplets 1 capsule q.48 hours. 12. Vitamin D3 five thousand units p.o. daily. 13. Zithromax 500 mg p.o. daily for 3 days. 14. Xopenex 1.25 nebulizer t.i.d. p.r.n. 15. Prednisone taper. Follow with Dr. Farias in 3 days. Follow up with shampoo person.
== END 2017-01-05 16:23 | disposition home or self-care (01) | DRG 191 ==
LOC: EC 18:18 → 4MS4W 21:05
PROVIDERS: ADMIT Hospitalist; ATTEND Hospitalist
DX: J44.1 Chronic obstructive pulmonary disease with (acute) exacerbation (principal); J45.41 Moderate persistent asthma with (acute) exacerbation; I48.1 Persistent atrial fibrillation; I27.2 Other secondary pulmonary hypertension; I11.0 Hypertensive heart disease with heart failure; I50.9 Heart failure, unspecified; E66.01 Morbid (severe) obesity due to excess calories; E11.9 Type 2 diabetes mellitus without complications; K21.9 Gastro-esophageal reflux disease without esophagitis; E78.5 Hyperlipidemia, unspecified; M19.91 Primary osteoarthritis, unspecified site; M81.0 Age-related osteoporosis without current pathological fracture; Z68.27 Body mass index [BMI] 27.0-27.9, adult; Z98.42 Cataract extraction status, left eye; Z98.41 Cataract extraction status, right eye; Z90.49 Acquired absence of other specified parts of digestive tract; Z79.84 Long term (current) use of oral hypoglycemic drugs; Z79.51 Long term (current) use of inhaled steroids; Z79.01 Long term (current) use of anticoagulants; Z79.899 Other long term (current) drug therapy; I25.10 Atherosclerotic heart disease of native coronary artery without angina pectoris; I25.2 Old myocardial infarction
CPT/HCPCS: 36415; 71010; 80053; 81001; 82550; 82553; 83735; 83880; 84484; 85025; 85379; 85610; 85730; 93005; 94640

== ENCOUNTER → 2017-05-03 | Outpatient (CLI) | payer MEDICARE ==
[2017-05-03 10:42] VITALS: BP 120/58; PULSE 64; RESP 16; TEMP 97.8
== END | disposition home or self-care (01) ==
LOC: PROCWHC3 10:37
PROVIDERS: ATTEND Internal Medicine Endocrinology, Diabetes & Metabolism
DX: M81.0 Age-related osteoporosis without current pathological fracture (principal)
CPT/HCPCS: 96372; J0897

== ENCOUNTER → 2017-05-18 | Outpatient (CLI) | payer MEDICARE ==
[2017-05-18 11:15] LABS: ALT 33 U/L (9-52); AST 18 U/L (14-36); Alkaline Phosphatase 83 U/L (38-126); Anion Gap 7 mmol/L; Blood Urea Nitrogen 24 mg/dL (7-17); Calcium 9.4 mg/dL (8.4-10.2); Carbon Dioxide 29 mmol/L (22-30); Chloride 103 mmol/L (98-107); Glucose 88 mg/dL (74-99); Non-African American GFR(MDRD) >60 (>60 ml/min/1.73 sqM); Potassium 4.6 mmol/L (3.5-5.1); Sodium 139 mmol/L (137-145); Total Protein 6.5 g/dL (6.3-8.2)
--- NOTE | 2017-05-18 14:13 | BD ---
EXAMINATION TYPE: MG DEXA axial skeleton. DATE OF EXAM: 05/18/2017 COMPARISON: NONE CLINICAL HISTORY: Z13.820 Screening for Osteoporosis Height: 63 Weight: 155.4 FRAX RISK QUESTIONS: Alcohol (3 or more units per day): NO Family History (Parent hip fracture): NO Glucocorticoids (More than 3mos): (Ex: prednisone, prednisolone, methylprednisolone, dexamethasone, and hydrocortisone). History of Fracture in Adulthood: NO Secondary Osteoporosis: 1. Type 1 Diabetes: NO 2. Hyperthyroidism: NO 3. Menopause before 45: NO 4. Malnutrition: NO 5. Chronic liver disease: NO Rheumatoid Arthritis: NO Current Tobacco Use: NO RISK FACTORS HISTORY OF: Hip Fracture (Right/Left): NO Spine Fracture: NO History of Wrist Fracture: NO Surgery to Spine/Hip(right/left)/Wrist (right/left): NO Family History of Osteoporosis: YES/ SISTER Active: YES Diet low in dairy products/other sources of calcium: NO Postmenopausal woman: AGE 45 Lost more than 2 inches in height since high school: NO Frequent falls: NO Poor Health: NO Hyperparathyroidism: NO Adrenal Insufficiency: NO MEDICATIONS: ELIQUIS, VERAPAMIL, GLIMEPIRIDE, OMEPRAZOLE , POTASSIUM CHLORIDE, NADOLOL, FUROSEMIDE, A DVAIR, PROAIR, CALCIUM, VIT D , VIT B12 EXAM MEASUREMENTS: Bone mineral densitometry was performed using the Cleeng System. Bone mineral density as measured about the Lumbar spine is: ----- L1-L4(G/cm2): 1.045 T Score Values are as follows: ----- L2: -2.2 ----- L3: 0.3 ----- L4: -0.2 ----- L1-L4: -1.1 Bone mineral density has: INCREASED 14.9 % since study of: 08.15.2014 Bone mineral density about the R hip (g/cm2): 0.836 Bone mineral density about the L hip (g/cm2): 0.814 T Score values are as follows: -----R Neck: -1.5 -----L Neck: -1.6 -----R Total: -1.1 -----L Total: -0.9 Bone mineral density has: INCREASED 1.5 % since study of: 08.15.2014 IMPRESSION: Osteopenia lumbar spine . NOTE: T-SCORE=SD OF THE YOUNG ADULT MEAN.
[2017-05-19 14:11] LABS: Mis test requested (Blood) C-TELOPEPTIDE
== END | disposition home or self-care (01) ==
LOC: RADBDWWP 10:07
PROVIDERS: ATTEND Internal Medicine Endocrinology, Diabetes & Metabolism
DX: M85.88 Other specified disorders of bone density and structure, other site (principal); M81.0 Age-related osteoporosis without current pathological fracture
CPT/HCPCS: 36415; 77080; 80053; 82306; 82523

== ENCOUNTER 2017-09-24 10:06 | Inpatient (IN) | payer MEDICARE ==
--- NOTE | 2017-09-24 10:40 | ED ---
Chest Pain HPI - General Chief Complaint: Chest Pain Stated Complaint: Chest pain Time Seen by Provider: 09/24/17 10:10 Source: patient, family, RN notes reviewed Mode of arrival: wheelchair Limitations: no limitations - History of Present Illness Initial Comments: This 82-year-old female with a recent admission to this hospital who presents with complaints of waking up with shortness of breath also chills and occasional achy chest pain this brief for the most part. She has a cough with greenish yellow phlegm she did receive an updraft is prior to arrival here she still feels dyspneic. At this time no chest pain no nausea no vomiting she does have rhinorrhea. MD Complaint: chest pain, other - Related Data Home Medications Medication Instructions Recorded Confirmed Apixaban [Eliquis] 5 mg PO BID 11/24/14 09/24/17 Potassium Chloride [Klor-Con 10] 10 meq PO DAILY 11/26/14 09/24/17 Fluticasone/Salmeterol [Advair 1 puff INHALATION RT-BID 12/14/14 09/24/17 500-50 Diskus] Omeprazole [PriLOSEC] 20 mg PO DAILY 06/06/15 09/24/17 Glimepiride [Amaryl] 2 mg PO BID 06/07/15 09/24/17 Albuterol Sulfate [Proair Hfa] 2 puff INHALATION RT-Q6H PRN 12/13/15 09/24/17 Furosemide [Lasix] 40 mg PO DAILY 05/20/16 09/24/17 Nadolol [Corgard] 40 mg PO DAILY 05/20/16 09/24/17 Cholecalciferol [Vitamin D3] 10,000 unit PO DAILY 09/13/16 09/24/17 Acetaminophen [Tylenol 8 Hour] 650 mg PO BID 08/14/17 09/24/17 Calcium Carbonate 1,000 mg PO DAILY 08/14/17 09/24/17 Cranberry Fruit Extract [Cranberry] 500 mg PO DAILY 08/14/17 09/24/17 Amiodarone [Cordarone] 200 mg PO DAILY 09/24/17 09/24/17 Cyanocobalamin (Vitamin B-12) 1,000 mcg PO DAILY 09/24/17 09/24/17 [Vitamin B-12] Previous Rx's Medication Instructions Recorded Verapamil [Isoptin] 80 mg PO TID #90 tab 12/16/15 Levalbuterol Nebulized [Xopenex 1.25 mg INHALATION RT-TID PRN #60 01/05/17 Nebulized] nebule Allergies Allergy/AdvReac Type Severity Reaction Status Date / Time diltiazem AdvReac Itching Verified 09/24/17 11:37 morphine AdvReac Confusion Verified 09/24/17 11:37 Review of Systems ROS Statement: Those systems with pertinent positive or pertinent negative responses have been documented in the HPI. ROS Other: All systems not noted in ROS Statement are negative. EKG Findings - EKG Results: EKG: interpreted by ERMD (Atrial fibrillation rate 95 QRS 104 QT since QTC of 444/557 moderate voltage criteria for LVH nonspecific ST configuration QT prolongation noted artifact is present) Past Medical History Past Medical History: Atrial Fibrillation, Asthma, Chest Pain / Angina, Heart Failure, COPD, Diabetes Mellitus, GERD/Reflux, Hyperlipidemia, Hypertension, Myocardial Infarction ([place]), Osteoarthritis (OA), Pneumonia Additional Past Medical History / Comment(s): recent rt leg (car door injury causing laceration) has sutures.COPD, frequent fall with abrasions to L lower leg and L arm, Afib with RVR, NIIDM type II, osteoporosis, 2012 shingeles, cardiac valvular disease(pt did'nt have knowlege of this), chronic anemia Last Myocardial Infarction Date:: 07/16/11 History of Any Multi-Drug Resistant Organisms: None Reported Past Surgical History: Appendectomy, Breast Surgery, Heart Catheterization, Tubal Ligation Additional Past Surgical History / Comment(s): benign lumpectomy rt breast, bronchoscopy 11/25/2014, colonoscopy, egd, bilat cataracts removed. 2010 VATS lt lung, 02/2011-cardiac cath-normal. Past Anesthesia/Blood Transfusion Reactions: No Reported Reaction Additional Past Anesthesia/Blood Transfusion Reaction / Comment(s): Pt has received blood in past without reaction Past Psychological History: Anxiety, Depression Smoking Status: Never smoker Past Alcohol Use History: None Reported Past Drug Use History: None Reported - Past Family History Sister(s) Family Medical History: Cancer Additional Family Medical History / Comment(s): breast CA Mother Family Medical History: No Reported History Additional Family Medical History / Comment(s): from car accident no other hx known Father Family Medical History: No Reported History Additional Family Medical History / Comment(s): committed suicide Daughter(s) Family Medical History: Cancer Additional Family Medical History / Comment(s): breast CA General Exam - General Exam Comments Initial Comments: This is a well-developed well-nourished awake alert oriented 3 female Limitations: no limitations General appearance: alert, in no apparent distress Head exam: Present: atraumatic, normocephalic, normal inspection Eye exam: Present: normal appearance, PERRL, EOMI. Absent: scleral icterus, conjunctival injection, periorbital swelling ENT exam: Present: mucous membranes dry, other (Boggy swollen nasal mucosa) Neck exam: Present: normal inspection, full ROM. Absent: tenderness, meningismus, lymphadenopathy Respiratory exam: Present: wheezes, rales, decreased breath sounds Cardiovascular Exam: Present: tachycardia, irregular rhythm GI/Abdominal exam: Present: soft, normal bowel sounds. Absent: distended, tenderness, guarding, rebound, rigid Extremities exam: Present: normal inspection, full ROM, normal capillary refill. Absent: tenderness, pedal edema, joint swelling, calf tenderness Back exam: Present: normal inspection Neurological exam: Present: alert, oriented X3, CN II-XII intact Psychiatric exam: Present: normal affect, normal mood Skin exam: Present: warm, dry, intact, normal color. Absent: rash Course Vital Signs 09/24/17 09/24/17 09/24/17 10:10 11:41 12:09 Temperature 99.1 F Pulse Rate 113 H 82 92 Respiratory 22 18 18 Rate Blood Pressure 147/83 130/63 119/58 O2 Sat by Pulse 90 L 93 L 92 L Oximetry 09/24/17 13:05 Temperature Pulse Rate 75 Respiratory 18 Rate Blood Pressure 116/56 O2 Sat by Pulse 92 L Oximetry Chest Pain MDM - MDM I did reevaluate patient several occasions. Patient's x-ray shows no definite focal infiltrate. Patient continues be dyspneic and demonstrating a low pulse ox in with oxygen. I did discuss [employer] her and her family she will be admitted. Critical Care Time Critical Care Time: Yes Critical Care Time: 32 minutes of critical care time which was initial presentation with history physical labs x-rays multiple re-evaluations the patient. Discussion with patient family regarding findings. Discussion with the main physician admission orders and documentation of the above. Disposition Clinical Impression: Acute exacerbation of chronic obstructive airways disease, Respiratory distress , acute, Tracheobronchitis, Febrile illness, acute Disposition: ADMITTED IP TO THIS HOSP Condition: Stable Referrals: Royal Farias MD [Primary Care Provider] - 1-2 days
[2017-09-24 11:08] LABS: Basophils # (A) 0.1 k/uL (0-0.2); Basophils % (A) 0 %; Eosinophils # (A) 0.5 k/uL (0-0.7); Eosinophils % (A) 2 %; HCT 41.6 % (34.0-46.0); HGB 13.4 gm/dL (11.4-16.0); Lymphocytes # (A) 0.7 k/uL (1.0-4.8); Lymphocytes % (A) 4 %; MCH 28.6 pg (25.0-35.0); MCHC 32.1 g/dL (31.0-37.0); MCV 89.1 fL (80.0-100.0); Mean Platelet Volume 8.3; Monocytes # (A) 0.8 k/uL (0-1.0); Monocytes % (A) 4 %; Neutrophils # (A) 17.9 k/uL (1.3-7.7); Neutrophils % (A) 89 %; Platelet Count 330 k/uL (150-450); RBC 4.68 m/uL (3.80-5.40); RDW 15.3 % (11.5-15.5)
[2017-09-24 11:20] LABS: ALT 33 U/L (9-52); AST 19 U/L (14-36); Albumin 3.8 g/dL (3.5-5.0); Alkaline Phosphatase 79 U/L (38-126); Anion Gap 12 mmol/L; Blood Urea Nitrogen 20 mg/dL (7-17); Calcium 9.3 mg/dL (8.4-10.2); Carbon Dioxide 26 mmol/L (22-30); Chloride 103 mmol/L (98-107); Glucose 157 mg/dL (74-99); Magnesium 1.7 mg/dL (1.6-2.3); Potassium 3.6 mmol/L (3.5-5.1); Sodium 141 mmol/L (137-145); Total Bilirubin 1.1 mg/dL (0.2-1.3); Total Protein 6.8 g/dL (6.3-8.2)
--- NOTE | 2017-09-24 11:22 | XR ---
EXAMINATION TYPE: XR chest 2V DATE OF EXAM: 09/24/2017 HISTORY: difficulty breathing. REFERENCE: Previous study dated 08/23/2017. FINDINGS: Lung volumes are prominent. Heart is enlarged. Pleural spaces are clear. There are chronic increased markings throughout the chest. IMPRESSION: 1. COPD 2. CARDIOMEGALY.
[2017-09-24 11:30] LABS: Creatine Kinase 40 U/L (30-135)
[2017-09-24 11:42] LABS: Creatine Kinase MB 0.7 ng/mL (0.0-2.4); Troponin I <0.012 ng/mL (0.000-0.034)
[2017-09-24 11:44] LABS: INR 1.2 (<1.2); Partial Thromboplastin Time 24.5 sec (22.0-30.0); Prothrombin Time 11.1 sec (9.0-12.0)
[2017-09-24] MEDS ORDERED: cefTRIAXone IN SWFI 1,000 MG/10 ML SYRINGE IVP STA (14:03)
[2017-09-24 15:46] VITALS: BMI 26.2
[2017-09-24] MEDS: IPRATROPIUM-ALBUTEROL 3 ML NEB INHALATION SCH ×2 (16:37→19:50)
[2017-09-24] MEDS ORDERED: methylPREDNISolone SOD SUCCI 125 MG/2 ML VIAL IV SCH (18:00)
[2017-09-24] MEDS: VERAPAMIL 80 MG TAB PO SCH (18:56)
[2017-09-24] MEDS: GLIMEPIRIDE 2 MG TAB PO SCH (18:56)
[2017-09-24] MEDS: SODIUM CHLORIDE 0.9% 1,000 ML IV SCH (19:03)
[2017-09-24] MEDS: BUDESONIDE 1 MG/2 ML NEBU INHALATION SCH (19:50)
[2017-09-24] MEDS ORDERED: SYMBICORT 160-4.5 MCG INHALER INHALATION SCH (20:00)
--- NOTE | 2017-09-24 20:13 | HP ---
HISTORY AND PHYSICAL DATE OF SERVICE: September 24, 2017. PRESENTING COMPLAINT: Shortness of breath, wheezing. HISTORY OF PRESENTING COMPLAINT: This is a pleasant 82-year-old patient who follows with Dr. Farias. The patient's stream control officer, Dr. Malone. The patient was here in August. She feels she never recovered fully when she left the hospital. The patient's chronic stable medical conditions include atrial fibrillation, GERD, hyperlipidemia, hypertension, osteoarthritis, diabetes type 2. The patient not getting home oxygen. The patient has been having increasingly for a few days, short of breath, some wheezing, cough with occasional green sputum. No obvious fevers. Appetite is fair. Bouts of coughing and presents for the same. REVIEW OF SYSTEMS: Constitutional: Tired. HEENT as above. Respiratory as above. Cardiovascular none. Gastrointestinal heartburn. Genitourinary none. Musculoskeletal: Pain in the joints. Dermatological, hematological, lymphatics none. Psychiatry none. Neurological uses a cane. PAST MEDICAL HISTORY: Atrial fibrillation, asthma, GERD, hyperlipidemia, hypertension, osteoarthritis, diabetes mellitus type 2, osteoporosis, shingles, moderate persistent asthma, recent right leg injury from a car door requiring sutures. Chronic anemia. PAST SURGICAL HISTORY: Appendectomy, breast surgery, cardiac catheterization, tubal ligation, benign lumpectomy right breast, bronchoscopy, EGD, bilateral cataract removed, left leg VATS 2010. Patient did have a cardiac cath. The report is normal. PSYCH HISTORY: Anxiety, depression. SOCIAL HISTORY: Lives by herself. Uses a cane or walker sometimes. Does not drive outside. No smoking. No alcohol. FAMILY HISTORY: Breast cancer. HOME MEDICATIONS: 1. Verapamil 80 mg t.i.d. 2. Potassium 10 mEq daily. 3. Prilosec 20 mg p.o. daily. 4. Corgard 40 mg p.o. daily. 5. Xopenex 1.25 p.o. t.i.d. p.r.n. 6. Amaryl 2 mg p.o. b.i.d. 7. Lasix 40 mg p.o. daily. 8. Advair 500/50 one puff b.i.d. 9. Vitamin B12 1000 mcg p.o. daily. 10.Cranberry 200 mg p.o. daily. 11.Vitamin D3 60960 units p.o. daily. 12.Calcium 2000 mg p.o. daily. 13.Eliquis 5 mg p.o. b.i.d. 14.Cordarone 200 mg p.o. daily. 15.ProAir 2 puffs q.6h p.r.n. 16.Tylenol 650 mg p.o. b.i.d. ALLERGIES: DILTIAZEM AND MORPHINE. PHYSICAL EXAMINATION: On examination vital signs on presentation temperature 99.1, pulse 113, respiration 22, blood pressure 147/83, pulse ox 90% on 2 L. General appearance: Average built, lying in bed, slightly short of breath, tired appearing. Eyes pupils equal. Conjunctivae normal. HEENT: Oral cavity normal. Neck JVD not raised. Mass not palpable. Respiratory effort increased. LUNGS: Diminished breath sounds prolonged expiration wheezing. Some expiratory crackles. Cardiovascular 1st and 2nd sounds normal. No edema. ABDOMEN: Soft, nontender. Liver and spleen not palpable. Lymphatic: No lymph nodes palpable in the neck and axilla. Psychiatry: Alert and oriented times three. Mood and affect slightly anxious-appearing. Neurological: Pupils are clear. Cranial nerves grossly intact. Power and sensation grossly intact. INVESTIGATIONS: White count 20, hemoglobin 13.4, potassium 3.6, BUN 20, [place] [address]. Influenza negative. Troponin negative. Chest x-ray shows some COPD and cardiomegaly. EKG shows atrial fibrillation, nonspecific T-wave changes. ASSESSMENT: 1. Acute exacerbation of moderate persistent asthma, probably from viral pneumonitis. Again, cannot rule out a bacterial component. 2. Persistent atrial fibrillation chronically anticoagulated. 3. Gastroesophageal reflux disease. 4. Hyperlipidemia. 5. Essential hypertension. 6. Primary osteoarthritis multiple joints. 7. Diabetes mellitus type 2 on oral hypoglycemic. 8. Gait dysfunction uses a cane. 9. Cardiomegaly on the chest x-ray with some elevated BNP. Rule out congestive heart failure component. PLAN: Patient is put on nebulized bronchodilators, IV steroids. Also put the patient on inhaled steroids. Eliquis is to continue. Pulmonary Dr. Malone is being consulted. Will do a 2-D echocardiogram. We will give a small dose of IV Lasix in the morning. Care was discussed with the patient. Questions were answered. Copy to Dr. Farias. MMBRYANL / IJN: [id number] /
[2017-09-24] MEDS ORDERED: IPRATROPIUM-ALBUTEROL 3 ML NEB INHALATION PRN (20:20)
[2017-09-24] MEDS: APIXABAN 5 MG TAB PO SCH (21:23)
[2017-09-25] MEDS: methylPREDNISolone SOD SUCCI 40 MG/ML 1 ML VIAL IV SCH ×4 (00:10→21:28)
[2017-09-25] MEDS: ACETAMINOPHEN TAB 325 MG TAB PO SCH ×3 (00:14→21:27)
[2017-09-25] MEDS: VERAPAMIL 80 MG TAB PO SCH ×4 (01:07→21:29)
[2017-09-25] MEDS: IPRATROPIUM-ALBUTEROL 3 ML NEB INHALATION SCH ×4 (07:13→20:39)
[2017-09-25] MEDS: BUDESONIDE 1 MG/2 ML NEBU INHALATION SCH (07:14)
[2017-09-25 07:25] LABS: Glucose,Whole Blood 168 mg/dL (75-99)
[2017-09-25] MEDS ORDERED: FUROSEMIDE 10 MG/ML 2 ML VIAL IV ONE (08:00)
[2017-09-25] MEDS: APIXABAN 5 MG TAB PO SCH ×2 (08:02→21:27)
[2017-09-25] MEDS: FUROSEMIDE 40 MG TAB PO SCH (08:02)
[2017-09-25] MEDS: PANTOPRAZOLE 40 MG TABLET PO SCH (08:02)
[2017-09-25] MEDS: CALCIUM CARBONATE 500 MG CHEWABLE PO SCH (08:02)
[2017-09-25] MEDS: AMIODARONE 200 MG TAB PO SCH (08:03)
[2017-09-25] MEDS: GLIMEPIRIDE 2 MG TAB PO SCH ×2 (08:03→17:40)
[2017-09-25] MEDS: POTASSIUM CHLORIDE ER 10 MEQ TAB.ER.PRT PO SCH (08:05)
[2017-09-25] MEDS: CHOLECALCIFEROL 1,000 UNIT TAB PO SCH (08:05)
[2017-09-25] MEDS: NADOLOL 20 MG TAB PO SCH (08:15)
[2017-09-25] MEDS: CYANOCOBALAMIN 500 MCG TAB PO SCH (08:16)
[2017-09-25] MEDS ORDERED: cefTRIAXone IN SWFI 1,000 MG/10 ML SYRINGE IVP SCH (09:00)
[2017-09-25] MEDS ORDERED: NON-FORMULARY DRUG (Cranberry Fruit Extract [Cranberry] 500 MG) PO SCH (09:00)
[2017-09-25 12:01] LABS: Glucose,Whole Blood 348 mg/dL (75-99)
[2017-09-25 14:29] LABS: Glucose,Whole Blood 289 mg/dL (75-99)
[2017-09-25] MEDS ORDERED: INSULIN ASPART 100 UNIT/ML 1 ML 10 ML VIAL SQ ONE (14:45)
[2017-09-25] MEDS: SODIUM CHLORIDE 0.9% 1,000 ML IV SCH (15:04)
--- NOTE | 2017-09-25 15:41 | P.CNPUL ---
History of Present Illness Consult date: 09/25/17 Reason for consult: dyspnea, cough, chest pain, COPD, hypoxemia, other Chief complaint: Shortness of breath History of present illness: Consult dated 09/25/2017 83-year-old female well-known to me. She presented to the emergency department with complaints of waking up with shortness of breath. She apparently was seen in the emergency room on September 24. In addition, she had bit of a cough. She was producing a small amount of phlegm. She also has some chills. No fever. She also has some achy chest pain or chest discomfort with chest congestion. The phlegm had some color to it as mentioned above. She was not coughing up any blood. She took up a couple updrafts before she came to the ER. She felt slightly better. She was still having issues she decided to come in to be evaluated. She was essentially admitted with a diagnosis of COPD exacerbation complicated by purulent tracheobronchitis. She's not having any chest pain today. No fever no chills. She does feel much better from the standpoint of COPD. Review of Systems A 12 point review of system is positive for shortness of breath achy chest pain cough chest congestion and minimal phlegm production. No fever no chills. No nausea vomiting or diarrhea. Past Medical History Past Medical History: Atrial Fibrillation, Asthma, Chest Pain / Angina, Heart Failure, COPD, Diabetes Mellitus, GERD/Reflux, Hyperlipidemia, Hypertension, Myocardial Infarction ([place]), Osteoarthritis ([place]), Pneumonia Additional Past Medical History / Comment(s): recent rt leg (car door injury causing laceration) has sutures.COPD, frequent fall with abrasions to L lower leg and L arm, Afib with RVR, NIIDM type II, osteoporosis, 2013 shingeles, cardiac valvular disease(pt did'nt have knowlege of this), chronic anemia Last Myocardial Infarction Date:: 07/16/11 History of Any Multi-Drug Resistant Organisms: None Reported Past Surgical History: Appendectomy, Breast Surgery, Heart Catheterization, Tubal Ligation Additional Past Surgical History / Comment(s): benign lumpectomy rt breast, bronchoscopy 11/25/2014, colonoscopy, egd, bilat cataracts removed. 2010 VATS lt lung, 02/2011-cardiac cath-normal. Past Anesthesia/Blood Transfusion Reactions: No Reported Reaction Additional Past Anesthesia/Blood Transfusion Reaction / Comment(s): Pt has received blood in past without reaction Past Psychological History: Anxiety, Depression Additional Psychological History / Comment(s): Pt resides alone at [facility]. She uses either a cane or walker to ambulate.has nebulizer and glucometer. She drives. no outside services. Smoking Status: Never smoker Past Alcohol Use History: None Reported Past Drug Use History: None Reported - Past Family History Sister(s) Family Medical History: Cancer Additional Family Medical History / Comment(s): breast CA Mother Family Medical History: No Reported History Additional Family Medical History / Comment(s): from car accident no other hx known Father Family Medical History: No Reported History Additional Family Medical History / Comment(s): committed suicide Daughter(s) Family Medical History: Cancer Additional Family Medical History / Comment(s): breast CA Medications and Allergies Home Medications Medication Instructions Recorded Confirmed Type Apixaban [Eliquis] 5 mg PO BID 11/24/14 09/24/17 History Potassium Chloride [Klor-Con 10] 10 meq PO DAILY 11/26/14 09/24/17 History Fluticasone/Salmeterol [Advair 1 puff INHALATION RT-BID 12/14/14 09/24/17 History 500-50 Diskus] Omeprazole [PriLOSEC] 20 mg PO DAILY 06/06/15 09/24/17 History Glimepiride [Amaryl] 2 mg PO BID 06/07/15 09/24/17 History Albuterol Sulfate [Proair Hfa] 2 puff INHALATION RT-Q6H PRN 12/13/15 09/24/17 History Verapamil [Isoptin] 80 mg PO TID #90 tab 12/16/15 09/24/17 Rx Furosemide [Lasix] 40 mg PO DAILY 05/20/16 09/24/17 History Nadolol [Corgard] 40 mg PO DAILY 05/20/16 09/24/17 History Cholecalciferol [Vitamin D3] 10,000 unit PO DAILY 09/13/16 09/24/17 History Levalbuterol Nebulized [Xopenex 1.25 mg INHALATION RT-TID PRN #60 01/05/1709/24 Rx Nebulized] nebule Acetaminophen [Tylenol 8 Hour] 650 mg PO BID 08/14/17 09/24/17 History Calcium Carbonate 1,000 mg PO DAILY 08/14/17 09/24/17 History Cranberry Fruit Extract [Cranberry] 500 mg PO DAILY 08/14/17 09/24/17 History Amiodarone [Cordarone] 200 mg PO DAILY 09/24/17 09/24/17 History Cyanocobalamin (Vitamin B-12) 1,000 mcg PO DAILY 09/24/17 09/24/17 History [Vitamin B-12] Allergies Allergy/AdvReac Type Severity Reaction Status Date / Time diltiazem AdvReac Itching Verified 09/24/17 11:37 morphine AdvReac Confusion Verified 09/24/17 11:37 Physical Exam Osteopathic Statement: *. No significant issues noted on an osteopathic structural exam other than those noted in the History and Physical/Consult. Vitals: Vital Signs Temp Pulse Pulse Resp BP Pulse Ox 09/25/17 15:00 97.6 F 71 16 120/69 98 09/25/17 11:36 60 16 09/25/17 11:26 56 L 16 09/25/17 07:36 66 14 09/25/17 07:25 67 14 09/25/17 07:24 68 14 09/25/17 07:14 65 14 96 09/25/17 07:00 97.0 F L 78 16 131/72 99 09/24/17 23:00 97.3 F L 64 18 93/50 94 L 09/24/17 20:06 80 09/24/17 19:51 80 09/24/17 16:50 80 09/24/17 16:40 84 Intake and Output 09/25/17 09/25/17 09/25/17 06:59 14:59 22:59 Other: # Voids 1 2 Weight 65 kg No acute distress, oriented 3. HEENT examination is grossly unremarkable. Mucous membranes are moist. No oral lesions. Neck supple. Full range of motion. No adenopathy thyromegaly or neck vein distention. Cardiovascular examination reveals regular rhythm rate. S1-S2 normal. No S3 or S4. No discernible murmur noted. Lungs reveal few scattered rhonchi. Breath sounds are diminished. Some mild wheezes. Breath sounds are equal bilaterally. There is prolongation on forced maneuver. Abdomen soft bowel sounds are heard. No masses or tenderness. Extremities are intact. No cyanosis clubbing or edema. Skin is without rash or lesion. Neurologic examination is brief but nonfocal. Results - Laboratory Findings CBC and BMP: 09/24/17 10:50 09/24/17 10:50 PT/INR, D-dimer PT 11.1 sec (9.0-12.0) 09/24/17 10:50 INR 1.2 (<1.2) H 09/24/17 10:50 Abnormal lab findings: Abnormal Labs 09/24/17 09/24/17 09/24/17 10:50 10:50 10:50 WBC 20.0 H Neutrophils # 17.9 H Lymphocytes # 0.7 L INR 1.2 H BUN 20 H Glucose 157 H POC Glucose (mg/dL) 09/25/17 09/25/17 09/25/17 07:17 11:58 14:25 WBC Neutrophils # Lymphocytes # INR BUN Glucose POC Glucose (mg/dL) 168 H 348 H 289 H - Diagnostic Findings Chest x-ray: image reviewed (Chest x-ray labs and medications are all reviewed.) Assessment and Plan (1) Myocardial infarction Current Visit: Yes Status: Acute Code(s): I21.9 - ACUTE MYOCARDIAL INFARCTION, UNSPECIFIED SNOMED Code(s): 96352704 (2) Diabetes Current Visit: Yes Status: Acute Code(s): E11.9 - TYPE 2 DIABETES MELLITUS WITHOUT COMPLICATIONS SNOMED Code(s): 13490882 (3) GERD (gastroesophageal reflux disease) Current Visit: Yes Status: Acute Code(s): K21.9 - GASTRO-ESOPHAGEAL REFLUX DISEASE WITHOUT ESOPHAGITIS SNOMED Code(s): 978010869 (4) Acute exacerbation of chronic obstructive airways disease Current Visit: Yes Status: Acute Code(s): J44.1 - CHRONIC OBSTRUCTIVE PULMONARY DISEASE W (ACUTE) EXACERBATION SNOMED Code(s): 869159772 (5) Respiratory distress, acute Current Visit: Yes Status: Acute Code(s): R06.00 - DYSPNEA, UNSPECIFIED SNOMED Code(s): 081167225 (6) Tracheobronchitis Current Visit: Yes Status: Acute Code(s): J40 - BRONCHITIS, NOT SPECIFIED ACUTE OR CHRONIC SNOMED Code(s): 61217912 (7) Afib Current Visit: No Status: Acute Code(s): I48.91 - UNSPECIFIED ATRIAL FIBRILLATION SNOMED Code(s): 14279277 (8) Atrial fibrillation with RVR Current Visit: No Status: Acute Code(s): I48.91 - UNSPECIFIED ATRIAL FIBRILLATION SNOMED Code(s): 576742645566043 (9) COPD exacerbation Current Visit: No Status: Acute Code(s): J44.1 - CHRONIC OBSTRUCTIVE PULMONARY DISEASE W (ACUTE) EXACERBATION SNOMED Code(s): 821431598601958 (10) Dyspnea Current Visit: No Status: Acute Code(s): R06.00 - DYSPNEA, UNSPECIFIED SNOMED Code(s): 377148503 (11) Hypertension Current Visit: No Status: Acute Code(s): I10 - ESSENTIAL (PRIMARY) HYPERTENSION SNOMED Code(s): 28169894 Plan: Plan dated 09/25/2017 The patient's doing well. She likely can be discharged home later today or tomorrow. We'll let the primary decide when to discharge the patient. The patient's feeling much better. She's received bronchodilators and steroids. She'll be discharged home on a short course of corticosteroids in her usual medications. Could also be discharged home on oral antibiotic. We will make sure that she sees me in the office in follow-up. Time with Patient: Greater than 30
[2017-09-25 16:48] LABS: Glucose,Whole Blood 192 mg/dL (75-99)
--- NOTE | 2017-09-25 17:35 | PN ---
PROGRESS NOTE DATE OF SERVICE: 09/25/17. ATTENDING NOTE: The patient was seen and examined by me. Discussed with nurse practitioner Ms. Alvarez. Patient admitted with asthma exacerbation. Breathing is getting better. Cough is improving. Appetite is improving. PHYSICAL EXAMINATION: Temperature afebrile, pulse 68, respirations 16, blood pressure 120/69, pulse ox 98% on 2 L. Lungs: Decreased breath sounds. Decreased wheezing. Cardiovascular: 1st and second sounds normal. Looks more comfortable. INVESTIGATIONS: No blood work today. Accu-Cheks are noted. ASSESSMENT: 1. Acute moderate persistent asthma, acute exacerbation. 2. Hyperglycemia from steroids that is diabetes mellitus type 2, uncontrolled. Overall, patient is looking much better. Encouraged to ambulate. MMODL / IJN: [id number] /
[2017-09-25] MEDS: INSULIN ASPART 100 UNIT/ML 1 ML 10 ML VIAL SQ SCH ×2 (17:40→21:28)
--- NOTE | 2017-09-25 18:21 | P.PN ---
Progress Note - Text Progress Note Date: 09/25/17 DATE OF SERVICE: 09/25/2017 PRESENTING COMPLAINT: Shortness of breath, wheezing HISTORY OF PRESENT ILLNESS: 82-year-old female who had increasing shortness of breath over a few days with wheezing, cough, occasional green sputum. Afebrile. Poor appetite. Also coughing. Admitted for COPD exacerbation. INTERVAL HISTORY: 09/25/2017: Patient sitting on the edge of the bed appears comfortable, breathing easily with 2 L of oxygen in place. No chest pain or shortness of breath, cough is improved. Minimal sputum production. Appetite improving in between 50 and 75% of her meals. Ambulatory to and from the bathroom. Encouraged her to be up and about in the hallway. Last BM prior to admission. REVIEW OF SYSTEMS: Done for constitutional ,cardiovascular, GI, pulmonary with relevant findings as above. CURRENT MEDICATIONS Tylenol, DuoNeb, amiodarone, Eliquis, Symbicort, cefdinir cholecalciferol, cyanocobalamin, Lasix, Amaryl, NovoLog, Solu-Medrol, nadolol, Protonix, verapamil. PHYSICAL EXAM VITAL SIGNS: Temperature 97.0, pulse 78, respiratory rate 16, blood pressure 131/72, oxygen saturation 99% on 2 L GENERAL APPEARANCE: Sitting up on the edge of the bed, not in distress. HEENT: Normocephalic, Pupils equal. Conjunctiva normal. JVD not raised. Mass not palpable.: RESPIRATORY: Respiratory effort mildly increased. Lungs diminished breath sounds prolonged expiration and wheezing to auscultation. CARDIOVASCULAR: First and second sounds normal. No edema. ABDOMEN: Soft. Liver and spleen not palpable. No tenderness. No mass palpable. PSYCHIATRY: Alert and oriented x3. Mood and affect normal. INVESTIGATIONS: Accu-Cheks noted. ASSESSMENT: -Acute exacerbation of moderate persistent asthma, probably from viral pneumonitis. -Persistent atrial fibrillation chronically anticoagulated. -Gastroesophageal reflux disease. -Hyperlipidemia. -Essential hypertension. -Primary osteoporosis multiple joints. -Diabetes mellitus type 2 on oral hypoglycemics. -Gait dysfunction, uses a cane. -Cardiomegaly on chest x-ray with some elevated BNP rule out congestive heart failure PLAN: Continue nebulized bronchodilators, IV and inhaled steroids oxygen therapy. Continue Eliquis, pulmonology has cleared the patient from their standpoint for discharge in the next 24-48 hrs. Plan of care discussed at the bedside with the patient she is in agreement. We will follow closely. [employer] statement: Patient was seen and examined by nurse practitioner Mallory Alvarez and all elements of the case discussed with attending Dr. Fleming
[2017-09-25] MEDS: SYMBICORT 160-4.5 MCG INHALER INHALATION SCH (20:38)
[2017-09-25 20:52] LABS: Hemoglobin A1C 6.3 % (4.0-6.0)
[2017-09-25 21:04] LABS: Glucose,Whole Blood 253 mg/dL (75-99)
[2017-09-25] MEDS: CEFDINIR 300 MG CAP PO SCH (21:28)
[2017-09-26 07:05] LABS: Glucose,Whole Blood 182 mg/dL (75-99)
[2017-09-26] MEDS: IPRATROPIUM-ALBUTEROL 3 ML NEB INHALATION SCH ×3 (07:19→15:30)
[2017-09-26] MEDS: SYMBICORT 160-4.5 MCG INHALER INHALATION SCH (07:19)
[2017-09-26 07:42] VITALS: RESP 16
[2017-09-26] MEDS: INSULIN ASPART 100 UNIT/ML 1 ML 10 ML VIAL SQ SCH ×2 (07:49→12:42)
[2017-09-26] MEDS: AMIODARONE 200 MG TAB PO SCH (07:50)
[2017-09-26] MEDS: methylPREDNISolone SOD SUCCI 40 MG/ML 1 ML VIAL IV SCH (07:50)
[2017-09-26] MEDS: POTASSIUM CHLORIDE ER 10 MEQ TAB.ER.PRT PO SCH (07:50)
[2017-09-26] MEDS: FUROSEMIDE 40 MG TAB PO SCH (07:50)
[2017-09-26] MEDS: CHOLECALCIFEROL 1,000 UNIT TAB PO SCH (07:50)
[2017-09-26] MEDS: APIXABAN 5 MG TAB PO SCH (07:51)
[2017-09-26] MEDS: GLIMEPIRIDE 2 MG TAB PO SCH (07:51)
[2017-09-26] MEDS: PANTOPRAZOLE 40 MG TABLET PO SCH (07:51)
[2017-09-26] MEDS: VERAPAMIL 80 MG TAB PO SCH (07:51)
[2017-09-26] MEDS: CEFDINIR 300 MG CAP PO SCH (07:53)
[2017-09-26] MEDS: CALCIUM CARBONATE 500 MG CHEWABLE PO SCH (07:53)
[2017-09-26] MEDS: CYANOCOBALAMIN 500 MCG TAB PO SCH (07:53)
[2017-09-26] MEDS: NADOLOL 20 MG TAB PO SCH (07:54)
[2017-09-26] MEDS: ACETAMINOPHEN TAB 325 MG TAB PO SCH (07:54)
--- NOTE | 2017-09-26 10:04 | ECHOF ---
Referral Reason:assess LV function MEASUREMENTS -------- HEIGHT: 157.5 cm WEIGHT: 64.9 kg BP: RVIDd: 3.0 cm (< 3.3) IVSd: 1.1 cm (0.6 - 1.1) LVIDd: 5.2 cm (3.9 - 5.3) LVPWd: 1.0 cm (0.6 - 1.1) IVSs: 1.1 cm LVIDs: 3.9 cm LVPWs: 1.3 cm FINDINGS -------- Sinus rhythm. This was a technically adequate study. Limited Study to assess left ventricular function. The left ventricular size is normal. Left ventricular wall thickness is normal. Overall left vent ricular systolic function is low-normal with, an EF between 50 - 55 %. CONCLUSIONS -------- 1. Sinus rhythm. 2. This was a technically adequate study. 3. Limited Study to assess left ventricular function. 4. The left ventricular size is normal. 5. Hypertrophic cardiomyopathy 6. Overall left ventricular systolic function is low-normal with, an EF between 50 - 55 %. [employer]: Augustine Stanton RDCS
[2017-09-26 11:42] LABS: Glucose,Whole Blood 217 mg/dL (75-99)
--- NOTE | 2017-09-26 12:06 | P.PN ---
Subjective Progress Note Date: 09/26/17 Principal diagnosis: Acute COPD exacerbation 83-year-old female well-known to me. She presented to the emergency department with complaints of waking up with shortness of breath. She apparently was seen in the emergency room on September 24. In addition, she had bit of a cough. She was producing a small amount of phlegm. She also has some chills. No fever. She also has some achy chest pain or chest discomfort with chest congestion. The phlegm had some color to it as mentioned above. She was not coughing up any blood. She took up a couple updrafts before she came to the ER. She felt slightly better. She was still having issues she decided to come in to be evaluated. She was essentially admitted with a diagnosis of COPD exacerbation complicated by purulent tracheobronchitis. She's not having any chest pain today. No fever no chills. She does feel much better from the standpoint of COPD. On 09/26/2017 patient seen in follow-up. Doing well, improving, still has occasional nonproductive cough. lung sounds are positive for diminished air entry bilaterally, with some rales at the left posterior base. On 2 L per nasal cannula with O2 sat at 97%.respirations are even and nonlabored. Patient remains in A. fib, with a controlled rate. Denies any chest pain. blood culture shows no growth after 24 hours. Objective - Vital Signs Vital signs: Vital Signs Temp 97.2 F L 09/26/17 07:00 Pulse 72 09/26/17 11:23 Resp 16 09/26/17 07:00 BP 130/67 09/26/17 07:00 Pulse Ox 97 09/26/17 07:21 Intake & Output 09/25/17 09/26/17 09/26/17 18:59 06:59 18:59 Weight 67.2 kg Other: # Voids 2 2 - Exam No acute distress, oriented 3. HEENT examination is grossly unremarkable. Mucous membranes are moist. No oral lesions. Neck supple. Full range of motion. No adenopathy thyromegaly or neck vein distention. Cardiovascular examination reveals regular rhythm rate. S1-S2 normal. No S3 or S4. No discernible murmur noted. Lungs reveal are diminished. Some rales at the left posterior lower base. There is prolongation on forced maneuver. Abdomen soft bowel sounds are heard. No masses or tenderness. Extremities are intact. No cyanosis clubbing or edema. Skin is without rash or lesion. Neurologic examination is brief but nonfocal. - Labs CBC & Chem 7: 09/24/17 10:50 09/24/17 10:50 Labs: Abnormal Lab Results - Last 24 Hours (Table) 09/24/17 09/25/17 09/25/17 Range/Units 10:50 11:58 14:25 POC Glucose (mg/dL) 348 H 289 H (75-99) mg/dL Hemoglobin A1c 6.3 H (4.0-6.0) % 09/25/17 09/25/17 09/26/17 Range/Units 16:46 20:55 06:58 POC Glucose (mg/dL) 192 H 253 H 182 H (75-99) mg/dL Hemoglobin A1c (4.0-6.0) % 09/26/17 Range/Units 11:34 POC Glucose (mg/dL) 217 H (75-99) mg/dL Hemoglobin A1c (4.0-6.0) % Microbiology - Last 24 Hours (Table) 09/24/17 10:50 Blood Culture - Preliminary Blood No Growth after 24 hours Assessment and Plan Plan: Assessment: #1. Acute COPD exacerbation with tracheobronchitis, improving #2. Mild exacerbation of congestive heart failure, echo from 08/25/2017 shows EF of 50-55%, there is a component of diastolic dysfunction #3. Advanced COPD #4. Evidence of moderate to severe mitral regurgitation, severe tricuspid regurgitation and moderate pulmonary hypertension with right systolic ventricular pressure of 45 mmHg on the echo from 08/25/2017 #5. Leukocytosis, patient presented with WBC of 20, on 09/24/2017. Chest x-ray shows COPD and cardiomegaly, but no evidence of pneumonia. #6. chronic atrial fibrillation, anticoagulated with Eliquis, with controlled rate #7. Hyperlipidemia, hypertension #8. Diabetes mellitus type 2, #9. GERD #10. Osteoarthritis Plan: Patient reports improvement in dyspnea, and coughing. Yesterday she did receive an additional dose of 20 mg IV Lasix per attending physician. Diuresed well with that. vital signs are stable, patient is afebrile. repeat echo from shows left ventricular systolic function is the same as in August, with EF of 50-55%. From pulmonary standpoint, patient can be discharged home today, on room home dose Lasix, prednisone taper, and oral antibiotics, follow-up with Dr. Malone in 7 days. I performed a history & physical examination of the patient and discussed their management with my nurse practitioner, Tory Aquino. I reviewed the nurse practitioner's note and agree with the documented findings and plan of care. Lung sounds are positive for diminished air entry bilaterally, with a few rales at the left posterior base. The findings and the impression was discussed with the patient. I attest to the documentation by the nurse practitioner. Time with Patient: Less than 30
[2017-09-26 12:40] LABS: Basophils % (A) 0 %; Eosinophils % (A) 0 %; HCT 38.3 % (34.0-46.0); HGB 12.4 gm/dL (11.4-16.0); Lymphocytes # (A) 0.9 k/uL (1.0-4.8); Lymphocytes % (A) 4 %; MCH 28.7 pg (25.0-35.0); MCHC 32.3 g/dL (31.0-37.0); MCV 88.9 fL (80.0-100.0); Mean Platelet Volume 7.5; Monocytes # (A) 0.7 k/uL (0-1.0); Monocytes % (A) 3 %; Neutrophils # (A) 19.3 k/uL (1.3-7.7); Neutrophils % (A) 92 %; Platelet Count 423 k/uL (150-450); RBC 4.31 m/uL (3.80-5.40); RDW 14.5 % (11.5-15.5); WBC 20.9 k/uL (3.8-10.6)
[2017-09-26] MEDS: SODIUM CHLORIDE 0.9% 1,000 ML IV SCH (14:54)
[2017-09-26 15:00] VITALS: BP 132/81; TEMP 96.7
[2017-09-26 15:44] VITALS: PULSE 74
--- NOTE | 2017-09-26 20:30 | P.DS ---
Providers Date of admission: 09/24/17 14:15 Expected date of discharge: 09/26/17 Attending physician: Jeffrey Fleming Consults: 09/24/17 14:10 Consult Physician Routine Consulting Provider: Lizzie Irene Consult Reason/Comments: COPD, tracheobronchitis Do you want consulting provider notified?: Yes Primary care physician: [facility] Course: FINAL DIAGNOSES: -Acute exacerbation of moderate persistent asthma, probably from viral pneumonitis. -Mild acute exacerbation of congestive heart failure from diastolic dysfunction in a patient who has an EF 50-55% -Persistent atrial fibrillation chronically anticoagulated. -Gastroesophageal reflux disease. -Hyperlipidemia. -Essential hypertension. -Primary osteoporosis multiple joints. -Diabetes mellitus type 2 on oral hypoglycemics. -Gait dysfunction, uses a cane. HOSPTIAL COURSE: 82-year-old female who was admitted to the emergency department with increasing shortness of breath wheezing cough occasional green sputum. Admitted for COPD exacerbation. Pulmonology consulted, home medications reordered, antibiotics, nebulized breathing treatments, bronchodilators, steroids initiated. Patient also found to have an elevation of BNP with congestive heart failure and received IV Lasix and diuresed well. Breathing improved, sputum production decreased. Activity tolerance increased. Condition overall improved, tolerating her diet able to ambulate without becoming short of breath, moving her bowels. Anxious to go home. Consultants agree patient is stable for discharge. PHYSICAL EXAM: CARDIOVASCULAR: First and second sounds noted no edema RESPIRATORY: Respiratory effort normal, lung sounds diminished bilaterally mild expiratory wheezing noted GI: Abdomen soft nontender liver and spleen not palpable PSYCHIATRY: Alert and oriented 3 mood and affect normal. Patient was seen and examined by nurse practitioner Mallory Alvarez in all elements of the case discussed with attending Dr. Fleming DISPOSITION: Discharge home Patient Condition at Discharge: Stable Plan - Discharge Summary Discharge Rx Participant: No New Discharge Prescriptions: New Cefdinir [Omnicef] 300 mg PO BID #8 cap predniSONE See Taper PO DAILY #30 tab Continue Apixaban [Eliquis] 5 mg PO BID Potassium Chloride [Klor-Con 10] 10 meq PO DAILY Fluticasone/Salmeterol [Advair 500-50 Diskus] 1 puff INHALATION RT-BID Omeprazole [PriLOSEC] 20 mg PO DAILY Glimepiride [Amaryl] 2 mg PO BID Albuterol Sulfate [Proair Hfa] 2 puff INHALATION RT-Q6H PRN PRN Reason: Shortness Of Breath Verapamil [Isoptin] 80 mg PO TID #90 tab Furosemide [Lasix] 40 mg PO DAILY Nadolol [Corgard] 40 mg PO DAILY Cholecalciferol [Vitamin D3] 10,000 unit PO DAILY Levalbuterol Nebulized [Xopenex Nebulized] 1.25 mg INHALATION RT-TID PRN #60 nebule PRN Reason: Shortness Of Breath Calcium Carbonate 1,000 mg PO DAILY Acetaminophen [Tylenol 8 Hour] 650 mg PO BID Cranberry Fruit Extract [Cranberry] 500 mg PO DAILY Amiodarone [Cordarone] 200 mg PO DAILY Cyanocobalamin (Vitamin B-12) [Vitamin B-12] 1,000 mcg PO DAILY Discharge Medication List Apixaban [Eliquis] 5 mg PO BID 11/24/14 [History] Potassium Chloride [Klor-Con 10] 10 meq PO DAILY 11/26/14 [History] Fluticasone/Salmeterol [Advair 500-50 Diskus] 1 puff INHALATION RT-BID 12/14/14 [History] Omeprazole [PriLOSEC] 20 mg PO DAILY 06/06/15 [History] Glimepiride [Amaryl] 2 mg PO BID 06/07/15 [History] Albuterol Sulfate [Proair Hfa] 2 puff INHALATION RT-Q6H PRN 12/13/15 [History] Verapamil [Isoptin] 80 mg PO TID #90 tab 12/16/15 [Rx] Furosemide [Lasix] 40 mg PO DAILY 05/20/16 [History] Nadolol [Corgard] 40 mg PO DAILY 05/20/16 [History] Cholecalciferol [Vitamin D3] 10,000 unit PO DAILY 09/13/16 [History] Levalbuterol Nebulized [Xopenex Nebulized] 1.25 mg INHALATION RT-TID PRN #60 nebule 01/05/17 [Rx] Acetaminophen [Tylenol 8 Hour] 650 mg PO BID 08/14/17 [History] Calcium Carbonate 1,000 mg PO DAILY 08/14/17 [History] Cranberry Fruit Extract [Cranberry] 500 mg PO DAILY 08/14/17 [History] Amiodarone [Cordarone] 200 mg PO DAILY 09/24/17 [History] Cyanocobalamin (Vitamin B-12) [Vitamin B-12] 1,000 mcg PO DAILY 09/24/17 [ History] Cefdinir [Omnicef] 300 mg PO BID #8 cap 09/26/17 [Rx] predniSONE See Taper PO DAILY #30 tab 09/26/17 [Rx] Follow up Appointment(s)/Referral(s): Royal Farias MD [Primary Care Provider] - 3 Days Jaylon Malone DO [Doctor of Osteopathic Medicine] - 10 Days Ambulatory/Diagnostic Orders: Basic Metabolic Panel [LAB.AMB] Location: Determined By Patient Complete Blood Count w/diff [LAB.AMB] Location: Determined By Patient Activity/Diet/Wound Care/Special Instructions: consistent carbohydrate diet activity as tolerated Discharge Disposition: HOME SELF-CARE
--- NOTE | 2017-09-27 05:54 | DS ---
DISCHARGE SUMMARY DATE OF SERVICE: 09/26/2017 ATTENDING NOTE: The patient was seen and examined by me. I discussed with nurse patient, Ms. Alvarez. The patient doing much better with breathing, very keen to go home. ON EXAM: LUNGS: Decreased breath sounds. No wheezing. The patient is rather comfortable. White count 20.9 from steroids. Afebrile. Blood pressure 132/81, pulse ox 97% on 2 L. FINAL DIAGNOSES: 1. Acute exacerbation of moderate persistent asthma, likely from viral pneumonitis. 2. Other medical conditions stable. Patient's 2-D echocardiogram showed preserved LV function. Care was discussed with the patient. Discharged home. Discussion and discharge planning more than 35 minutes. MMODL / IJN: [id number] /
== END 2017-09-26 16:27 | disposition home or self-care (01) | DRG 190 ==
LOC: EC 10:06 → 4MS4W 14:15
PROVIDERS: ADMIT Hospitalist; ATTEND Hospitalist
DX: J44.0 Chronic obstructive pulmonary disease with (acute) lower respiratory infection (principal); J12.9 Viral pneumonia, unspecified; I50.33 Acute on chronic diastolic (congestive) heart failure; I27.20 Pulmonary hypertension, unspecified; I48.1 Persistent atrial fibrillation; I08.1 Rheumatic disorders of both mitral and tricuspid valves; E11.65 Type 2 diabetes mellitus with hyperglycemia; J45.41 Moderate persistent asthma with (acute) exacerbation; J44.1 Chronic obstructive pulmonary disease with (acute) exacerbation; I11.0 Hypertensive heart disease with heart failure; R06.03 Acute respiratory distress; I48.2 Chronic atrial fibrillation; E78.5 Hyperlipidemia, unspecified; I25.2 Old myocardial infarction; K21.9 Gastro-esophageal reflux disease without esophagitis; T38.0X5A Adverse effect of glucocorticoids and synthetic analogues, initial encounter; M15.9 Polyosteoarthritis, unspecified; M81.0 Age-related osteoporosis without current pathological fracture; R09.02 Hypoxemia; D64.9 Anemia, unspecified; F32.9 Major depressive disorder, single episode, unspecified; F41.9 Anxiety disorder, unspecified; R26.9 Unspecified abnormalities of gait and mobility; Z79.01 Long term (current) use of anticoagulants; Z79.84 Long term (current) use of oral hypoglycemic drugs; Z79.899 Other long term (current) drug therapy; Z88.5 Allergy status to narcotic agent; Z88.8 Allergy status to other drugs, medicaments and biological substances; Z91.81 History of falling; Y92.239 Unspecified place in hospital as the place of occurrence of the external cause
CPT/HCPCS: 36415; 71046; 80053; 82550; 82553; 83036; 83605; 83735; 83880; 84484; 85025; 85610; 85730; 87040; 87502; 93005; 93308; 94640; 94760; 96374; 99291

== ENCOUNTER 2017-11-27 09:17 | Inpatient (IN) | payer MEDICARE ==
--- NOTE | 2017-11-27 09:41 | ED ---
General Adult HPI - General Stated complaint: Chest Pain Time Seen by Provider: 11/27/17 09:17 Source: RN notes reviewed - History of Present Illness Initial comments: This is an 82-year-old female with past medical history significant for diabetes high blood pressure atrial fibrillation COPD and congestive heart. Patient comes in today because over the last couple of days she has been feeling more short of breath. Patient states on Monday she was talking to her rn transplant about her A. fib occurring more often so he increased her amiodarone from 100 twice a day to 200 twice a day. Patient states shortly thereafter she became much more short of breath per patient denies any chest pain or pressure. Patient denies any abdominal pain patient denies nausea vomiting diarrhea per patient denies any recent fever chills or cough. Patient denies lightheadedness dizziness or near syncopal episode. - Related Data Home Medications Medication Instructions Recorded Confirmed Apixaban [Eliquis] 5 mg PO BID 11/24/14 11/27/17 Potassium Chloride [Klor-Con 10] 10 meq PO DAILY 11/26/14 11/27/17 Fluticasone/Salmeterol [Advair 1 puff INHALATION RT-BID 12/14/14 11/27/17 500-50 Diskus] Omeprazole [PriLOSEC] 20 mg PO BID 06/06/15 11/27/17 Glimepiride [Amaryl] 2 mg PO BID 06/07/15 11/27/17 Albuterol Sulfate [Proair Hfa] 2 puff INHALATION RT-Q6H PRN 12/13/15 11/27/17 Furosemide [Lasix] 40 mg PO DAILY 05/20/16 11/27/17 Nadolol [Corgard] 40 mg PO DAILY 05/20/16 11/27/17 Cholecalciferol [Vitamin D3] 10,000 unit PO DAILY 09/13/16 11/27/17 Acetaminophen [Tylenol 8 Hour] 650 mg PO BID 08/14/17 11/27/17 Calcium Carbonate 1,000 mg PO DAILY 08/14/17 11/27/17 Cranberry Fruit Extract [Cranberry] 500 mg PO DAILY 08/14/17 11/27/17 Cyanocobalamin (Vitamin B-12) 1,000 mcg PO DAILY 09/24/17 11/27/17 [Vitamin B-12] Amiodarone [Cordarone] 100 mg PO BID 11/27/17 11/27/17 Previous Rx's Medication Instructions Recorded Verapamil [Isoptin] 80 mg PO TID #90 tab 12/16/15 Levalbuterol Nebulized [Xopenex 1.25 mg INHALATION RT-TID PRN #60 01/05/17 Nebulized] nebule Allergies Allergy/AdvReac Type Severity Reaction Status Date / Time diltiazem AdvReac Itching Verified 11/27/17 10:39 morphine AdvReac Confusion Verified 11/27/17 10:39 Review of Systems ROS Statement: Those systems with pertinent positive or pertinent negative responses have been documented in the HPI. ROS Other: All systems not noted in ROS Statement are negative. Past Medical History Past Medical History: Atrial Fibrillation, Asthma, Chest Pain / Angina, Heart Failure, COPD, Diabetes Mellitus, GERD/Reflux, Hyperlipidemia, Hypertension, Myocardial Infarction (PA), Osteoarthritis (OA), Pneumonia Additional Past Medical History / Comment(s): recent rt leg (car door injury causing laceration) has sutures.COPD, frequent fall with abrasions to L lower leg and L arm, Afib with RVR, NIIDM type II, osteoporosis, 2013 shingeles, cardiac valvular disease(pt did'nt have knowlege of this), chronic anemia Last Myocardial Infarction Date:: 07/16/11 History of Any Multi-Drug Resistant Organisms: None Reported Past Surgical History: Appendectomy, Breast Surgery, Heart Catheterization, Tubal Ligation Additional Past Surgical History / Comment(s): benign lumpectomy rt breast, bronchoscopy 11/25/2014, colonoscopy, egd, bilat cataracts removed. 2010 VATS lt lung, 02/2011-cardiac cath-normal. Past Anesthesia/Blood Transfusion Reactions: No Reported Reaction Additional Past Anesthesia/Blood Transfusion Reaction / Comment(s): Pt has received blood in past without reaction Past Psychological History: Anxiety, Depression Additional Psychological History / Comment(s): Pt resides alone at [facility]. She uses either a cane or walker to ambulate.has nebulizer and glucometer. She drives. no outside services. Smoking Status: Never smoker Past Alcohol Use History: None Reported Past Drug Use History: None Reported - Past Family History Sister(s) Family Medical History: Cancer Additional Family Medical History / Comment(s): breast CA Mother Family Medical History: No Reported History Additional Family Medical History / Comment(s): from car accident no other hx known Father Family Medical History: No Reported History Additional Family Medical History / Comment(s): committed suicide Daughter(s) Family Medical History: Cancer Additional Family Medical History / Comment(s): breast CA General Exam - General Exam Comments Initial Comments: GENERAL: Patient is well-developed and well-nourished. Patient is nontoxic and well- hydrated and is in mild distress. ENT: Neck is soft and supple. No significant lymphadenopathy is noted. Oropharynx is clear. Moist mucous membranes. Neck has full range of motion without eliciting any pain. EYES: The sclera were anicteric and conjunctiva were pink and moist. Extraocular movements were intact and pupils were equal round and reactive to light. Eyelids were unremarkable. PULMONARY: Patient has a slight expiratory wheeze throughout patient states she already took 2 treatments prior to arrival. CARDIOVASCULAR: Patient is bradycardic at about 45 beats a minute ABDOMEN: Soft and nontender with normal bowel sounds. No palpable organomegaly was noted. There is no palpable pulsatile mass. SKIN: Skin is clear with no lesions or rashes and otherwise unremarkable. NEUROLOGIC: Patient is alert and oriented x3. Cranial nerves II through XII are grossly intact. Motor and sensory are also intact. Normal speech, volume and content. Symmetrical smile. MUSCULOSKELETAL: Normal extremities with adequate strength and full range of motion. Patient's right leg is larger than the left and she has more edema on the right than the left. LYMPHATICS: No significant lymphadenopathy is noted PSYCHIATRIC: Normal psychiatric evaluation. Course Vital Signs 11/27/17 11/27/17 11/27/17 09:36 09:55 10:39 Temperature 97.8 F Pulse Rate 44 L 51 L Pulse Rate [ 42 L Life Guard ] Respiratory 18 18 Rate Blood Pressure 147/81 165/65 O2 Sat by Pulse 99 100 Oximetry Medical Decision Making - Medical Decision Making EKG shows a marked sinus bradycardia at 44 bpm NE interval is 238 QRSs 106 QT interval is 598 QTC is 511. No ST segment elevations noted I spoke with Dr. Gibson about the case and he agreed that the patient needs to be admitted. Chest x-ray some atelectasis but no new acute changes [facility] the patient I consult to cardiology. I held the verapamil I reduced the amiodarone 200 twice a day and they held the eliquis. - Lab Data Result diagrams: 11/27/17 09:30 11/27/17 09:30 Lab Results 11/27/17 11/27/17 11/27/17 Range/Units 09:30 09:30 09:30 WBC 9.0 (3.8-10.6) k/uL RBC 4.20 (3.80-5.40) m/uL Hgb 12.2 (11.4-16.0) gm/dL Hct 36.8 (34.0-46.0) % MCV 87.7 (80.0-100.0) fL MCH 29.0 (25.0-35.0) pg MCHC 33.1 (31.0-37.0) g/dL RDW 16.6 H (11.5-15.5) % Plt Count 389 (150-450) k/uL Neutrophils % 70 % Lymphocytes % 16 % Monocytes % 10 % Eosinophils % 2 % Basophils % 1 % Neutrophils # 6.3 (1.3-7.7) k/uL Lymphocytes # 1.4 (1.0-4.8) k/uL Monocytes # 0.9 (0-1.0) k/uL Eosinophils # 0.2 (0-0.7) k/uL Basophils # 0.1 (0-0.2) k/uL Anisocytosis Slight PT (9.0-12.0) sec INR (<1.2) APTT (22.0-30.0) sec Sodium 141 (137-145) mmol/L Potassium 4.2 (3.5-5.1) mmol/L Chloride 103 (98-107) mmol/L Carbon Dioxide 27 (22-30) mmol/L Anion Gap 11 mmol/L BUN 24 H (7-17) mg/dL Creatinine 0.87 (0.52-1.04) mg/dL Est GFR (CKD-EPI)AfAm 72 (>60 ml/min/1.73 sqM) Est GFR (CKD-EPI)NonAf 62 (>60 ml/min/1.73 sqM) Glucose 143 H (74-99) mg/dL Calcium 9.9 (8.4-10.2) mg/dL Total Bilirubin 1.0 (0.2-1.3) mg/dL AST 27 (14-36) U/L ALT 26 (9-52) U/L Alkaline Phosphatase 84 (38-126) U/L Total Creatine Kinase 64 (30-135) U/L CK-MB (CK-2) 1.1 (0.0-2.4) ng/mL CK-MB (CK-2) Rel Index 1.7 Troponin I 0.024 (0.000-0.034) ng/mL Total Protein 7.1 (6.3-8.2) g/dL Albumin 3.9 (3.5-5.0) g/dL 11/27/17 Range/Units 09:30 WBC (3.8-10.6) k/uL RBC (3.80-5.40) m/uL Hgb (11.4-16.0) gm/dL Hct (34.0-46.0) % MCV (80.0-100.0) fL MCH (25.0-35.0) pg MCHC (31.0-37.0) g/dL RDW (11.5-15.5) % Plt Count (150-450) k/uL Neutrophils % % Lymphocytes % % Monocytes % % Eosinophils % % Basophils % % Neutrophils # (1.3-7.7) k/uL Lymphocytes # (1.0-4.8) k/uL Monocytes # (0-1.0) k/uL Eosinophils # (0-0.7) k/uL Basophils # (0-0.2) k/uL Anisocytosis PT 11.9 (9.0-12.0) sec INR 1.2 H (<1.2) APTT 25.8 (22.0-30.0) sec Sodium (137-145) mmol/L Potassium (3.5-5.1) mmol/L Chloride (98-107) mmol/L Carbon Dioxide (22-30) mmol/L Anion Gap mmol/L BUN (7-17) mg/dL Creatinine (0.52-1.04) mg/dL Est GFR (CKD-EPI)AfAm (>60 ml/min/1.73 sqM) Est GFR (CKD-EPI)NonAf (>60 ml/min/1.73 sqM) Glucose (74-99) mg/dL Calcium (8.4-10.2) mg/dL Total Bilirubin (0.2-1.3) mg/dL AST (14-36) U/L ALT (9-52) U/L Alkaline Phosphatase (38-126) U/L Total Creatine Kinase (30-135) U/L CK-MB (CK-2) (0.0-2.4) ng/mL CK-MB (CK-2) Rel Index Troponin I (0.000-0.034) ng/mL Total Protein (6.3-8.2) g/dL Albumin (3.5-5.0) g/dL Critical Care Time Critical Care Time: Yes Total Critical Care Time: 35 Disposition Clinical Impression: Bradycardia Disposition: ADMITTED IP TO THIS HOSP Referrals: Royal Farias MD [Primary Care Provider] - 1-2 days Time of Disposition: 11:13
[2017-11-27 10:10] LABS: INR 1.2 (<1.2); Partial Thromboplastin Time 25.8 sec (22.0-30.0); Prothrombin Time 11.9 sec (9.0-12.0)
[2017-11-27 10:17] LABS: Albumin 3.9 g/dL (3.5-5.0); Calcium 9.9 mg/dL (8.4-10.2); Potassium 4.2 mmol/L (3.5-5.1); Total Protein 7.1 g/dL (6.3-8.2)
[2017-11-27 10:25] LABS: Anisocytosis Slight; Basophils # (A) 0.1 k/uL (0-0.2); Basophils % (A) 1 %; Eosinophils # (A) 0.2 k/uL (0-0.7); Eosinophils % (A) 2 %; HCT 36.8 % (34.0-46.0); HGB 12.2 gm/dL (11.4-16.0); Lymphocytes # (A) 1.4 k/uL (1.0-4.8); Lymphocytes % (A) 16 %; MCHC 33.1 g/dL (31.0-37.0); MCV 87.7 fL (80.0-100.0); Mean Platelet Volume 8.2; Monocytes # (A) 0.9 k/uL (0-1.0); Monocytes % (A) 10 %; Neutrophils # (A) 6.3 k/uL (1.3-7.7); Neutrophils % (A) 70 %; Platelet Count 389 k/uL (150-450); RDW 16.6 % (11.5-15.5)
--- NOTE | 2017-11-27 10:29 | XR ---
EXAMINATION TYPE: XR chest 2V DATE OF EXAM: 11/27/2017 COMPARISON: 09/24/2017 HISTORY: Shortness of breath TECHNIQUE: Frontal and lateral views of the chest are obtained. FINDINGS: There is marked cardiomegaly, unchanged from the prior. Biapical lucency relates underlyin g COPD. There is diffuse osseous demineralization and multilevel mild degenerative changes of the tho racic spine. New small retrocardiac density is seen on the frontal view only favored to represent ate lectasis. New multifocal right midlung and right basilar atelectasis are also present. There is an un changed right midlung 3 mm pulmonary nodule and again likely represent sequela of granulomatous mahmood e. IMPRESSION: New retrocardiac opacity seen at the left lung base on the frontal view only favored to represent ate lectasis. New multifocal right-sided atelectasis is also seen.
[2017-11-27] MEDS ORDERED: ceFAZolin IN SWFI 2 GM/20 ML SYRINGE IVP ONE (10:30)
[2017-11-27] MEDS ORDERED: ceFAZolin 1,000 MG in SODIUM CHLORIDE 0.9% IRRIGATIO 250 ML IRRIGATION ONE (10:30)
[2017-11-27] MEDS ORDERED: SODIUM CHLORIDE 0.9% 1,000 ML IV SCH ×3 (10:30→13:00)
[2017-11-27 10:42] LABS: Creatine Kinase MB 1.1 ng/mL (0.0-2.4); Troponin I 0.024 ng/mL (0.000-0.034)
[2017-11-27] MEDS ORDERED: NITROGLYCERIN SL TABS 0.4 MG TAB SUBLINGUAL PRN (11:15)
[2017-11-27 16:16] LABS: Creatine Kinase MB 0.8 ng/mL (0.0-2.4); Troponin I 0.02 ng/mL (0.000-0.034)
[2017-11-27] MEDS ORDERED: LEVALBUTEROL NEBULIZED 1.25 MG INHALATION PRN (17:39)
--- NOTE | 2017-11-27 17:43 | CONS ---
CONSULTATION 82-year-old lady with history of hypertrophic cardiomyopathy, primarily in the form of apical hypertrophy, paroxysmal atrial fibrillation with rapid ventricular rate, COPD, chronic diastolic heart failure, and hypertension who comes to hospital complaining of exertional fatigue. She is short of breath with very little activity that started over the last 2 days. She called me on Monday stating that her heart rate was fast. I increased the dose of her amiodarone to 200 b.i.d. At the time of my evaluation in the emergency room, she has extreme sinus bradycardia with a heart rates in the 40s. The patient historically has had problems with atrial fibrillation with rapid ventricular rate or sinus rhythm with slow heart rate. So to better control her atrial fibrillation with RVR, I advised her to undergo a permanent pacemaker. I spoke to Dr. Serra, the mill hand, who will do it probably tomorrow. The patient otherwise denies chest pain, difficulty in breathing, leg edema, or syncope. CURRENT MEDICATIONS: Include Isoptin 80 t.i.d., K-Dur 10 daily, Prilosec, Corgard 40 daily, Xopenex, Amaryl, Lasix, Advair, D3, Eliquis 5 b.i.d., amiodarone 200 b.i.d., albuterol. ALLERGIES: To DILTIAZEM and MORPHINE. FAMILY HISTORY: Negative for premature coronary artery disease. SOCIAL HISTORY: Denies current smoking, EtOH abuse or drug abuse. REVIEW OF SYSTEMS: HEENT is unremarkable. CARDIAC: As described above. RESPIRATORY: As described above. GI: Negative. ALLERGY/IMMUNOLOGY: Negative. SKIN AND MUSCULOSKELETAL: Significant for arthritis. PSYCHOSOCIAL: Negative. ENDOCRINE: Negative. CONSTITUTIONAL: Negative. ONCOLOGICAL: Negative. The rest of the system review is not relevant. PHYSICAL EXAM: On exam comfortable at rest. Vital signs are stable. Heart rate is 47 beats per minute. Blood pressure is 150/67, respiratory rate is 18, O2 sat is 99% on 2 L. There is no jugular venous distention. Carotid upstroke is diminished. There is no bruit. Chest exam reveals good air entry bilaterally without any crackles or rhonchi. Heart exam reveals first and second heart sounds. Ejection systolic murmur in the aortic area. There is a systolic murmur at the left lower sternal border. Abdomen is soft. Examination of extremities reveals trace edema. Peripheral pulses are felt. LAB: Show a hemoglobin of 12.2, platelet count is 389. Troponin is 0.024. AST and ALT are within normal limits. Potassium is 4.2, creatinine is 0.87. The patient had an echo done in August that shows normal LV function. Moderate mitral and moderate to severe tricuspid regurgitation. EKG shows sinus bradycardia. ASSESSMENT: 1. 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 2. Exertional fatigue related to sinus bradycardia. 3. Apical hypertrophy. 4. Hypertension. 5. History of diastolic heart failure. 6. Diabetes. 7. Hypertension. PLAN: The patient will undergo a permanent pacemaker today. MMODL / IJN: [id number] /
--- NOTE | 2017-11-27 17:49 | P.HPIM ---
History of Present Illness 82-year-old female with past medical history significant for diabetes high blood pressure atrial fibrillation COPD and congestive heart. Patient comes in today because over the last couple of days she has been feeling more short of breath. Patient states on Monday she was talking to her unit aide about her A. fib occurring more often so he increased her amiodarone from 100 twice a day to 200 twice a day. Patient states shortly thereafter she became much more short of breath per patient denies any chest pain or pressure. Patient denies any abdominal pain patient denies nausea vomiting diarrhea per patient denies any recent fever chills or cough. Patient denies lightheadedness dizziness or near syncopal episode. Patient's chest x-ray showed atelectasis in the left lower lung bases and right lower lung bases and exam revealed crackles in the left lower lung bases. Patient does not have any elevated JVD does have history of congestive heart failure chronic diastolic dysfunction uses 40 mg of Lasix was complaining of for orthopnea as well as PND. Patient was a valid by cardiology and patient is scheduled for pacemaker placement for possibility of sick sinus syndrome. After the procedure she may need additional 40 IV of Lasix. Patient will be resumed on 40 mg of oral Lasix. Patient had normal ejection fraction the past patient is also comparing of cough with greenish sputum production and patient is receiving preoperative antibiotics which should help her bronchitis. Review of Systems REVIEW OF SYSTEMS: CONSTITUTIONAL: No fever, no malaise, no fatigue. HEENT: No recent visual problems or hearing problems. Denied any sore throat. CARDIOVASCULAR: No chest pain, orthopnea, PND, no palpitations, no syncope. PULMONARY: no hemoptysis. GASTROINTESTINAL: No diarrhea, no nausea, no vomiting, no abdominal pain. Normoactive bowel sounds. NEUROLOGICAL: No headaches, no weakness, no numbness. HEMATOLOGICAL: Denies any bleeding or petechiae. GENITOURINARY: Denies any burning micturition, frequency, or urgency. MUSCULOSKELETAL/RHEUMATOLOGICAL: Denies any joint pain, swelling, or any muscle pain. ENDOCRINE: Denies any polyuria or polydipsia. The rest of the 14-point review of systems is negative. Past Medical History Past Medical History: Atrial Fibrillation, Asthma, Chest Pain / Angina, Heart Failure, COPD, Diabetes Mellitus, GERD/Reflux, Hyperlipidemia, Hypertension, Myocardial Infarction (NM), Osteoarthritis (OA), Pneumonia Additional Past Medical History / Comment(s): Afib RVR, NIDDM type II, arthritis multiple joints, osteoporosis, chronic anemia, falls, 2013 shingelles Last Myocardial Infarction Date:: 07/16/11 History of Any Multi-Drug Resistant Organisms: None Reported Past Surgical History: Appendectomy, Breast Surgery, Heart Catheterization, Tubal Ligation Additional Past Surgical History / Comment(s): 02/2011 cardiac cath-normal, benign lumpectomy bronchoscopy, EGD/colonoscopy, bilateral cataract removals, 2010 VATS L lung, falls. Past Anesthesia/Blood Transfusion Reactions: No Reported Reaction Additional Past Anesthesia/Blood Transfusion Reaction / Comment(s): Pt has received blood in past without reaction Smoking Status: Never smoker - Past Family History Sister(s) Family Medical History: Cancer Additional Family Medical History / Comment(s): breast CA Mother Family Medical History: No Reported History Additional Family Medical History / Comment(s): from car accident no other hx known Father Family Medical History: No Reported History Additional Family Medical History / Comment(s): committed suicide Daughter(s) Family Medical History: Cancer Additional Family Medical History / Comment(s): breast CA Medications and Allergies Home Medications Medication Instructions Recorded Confirmed Type Apixaban [Eliquis] 5 mg PO BID 11/24/14 11/27/17 History Potassium Chloride [Klor-Con 10] 10 meq PO DAILY 11/26/14 11/27/17 History Fluticasone/Salmeterol [Advair 1 puff INHALATION RT-BID 12/14/14 11/27/17 History 500-50 Diskus] Omeprazole [PriLOSEC] 20 mg PO BID 06/06/15 11/27/17 History Glimepiride [Amaryl] 2 mg PO BID 06/07/15 11/27/17 History Albuterol Sulfate [Proair Hfa] 2 puff INHALATION RT-Q6H PRN 12/13/15 11/27/17 History Verapamil [Isoptin] 80 mg PO TID #90 tab 12/16/15 11/27/17 Rx Furosemide [Lasix] 40 mg PO DAILY 05/20/16 11/27/17 History Nadolol [Corgard] 40 mg PO DAILY 05/20/16 11/27/17 History Cholecalciferol [Vitamin D3] 10,000 unit PO DAILY 09/13/16 11/27/17 History Levalbuterol Nebulized [Xopenex 1.25 mg INHALATION RT-TID PRN #60 01/05/1711/27 Rx Nebulized] nebule Acetaminophen [Tylenol 8 Hour] 650 mg PO BID 08/14/17 11/27/17 History Calcium Carbonate 1,000 mg PO DAILY 08/14/17 11/27/17 History Cranberry Fruit Extract [Cranberry] 500 mg PO DAILY 08/14/17 11/27/17 History Cyanocobalamin (Vitamin B-12) 1,000 mcg PO DAILY 09/24/17 11/27/17 History [Vitamin B-12] Amiodarone [Cordarone] 100 mg PO BID 11/27/17 11/27/17 History Allergies Allergy/AdvReac Type Severity Reaction Status Date / Time diltiazem AdvReac Itching Verified 11/27/17 10:39 morphine AdvReac Confusion Verified 11/27/17 10:39 Physical Exam Vitals: Vital Signs Temp Pulse Pulse Pulse Resp BP BP 11/27/17 16:19 97.8 F 51 L 18 147/67 11/27/17 16:00 97.4 F L 42 L 54 L 18 143/63 11/27/17 15:34 51 L 18 147/67 11/27/17 14:59 52 L 18 140/63 11/27/17 13:13 18 L 47 H 152/67 11/27/17 12:16 49 L 22 152/67 11/27/17 10:39 51 L 18 165/65 11/27/17 09:55 42 L 11/27/17 09:36 97.8 F 44 L 18 147/81 Pulse Ox 11/27/17 16:19 97 11/27/17 16:00 93 L 11/27/17 15:34 97 11/27/17 14:59 98 11/27/17 13:13 99 11/27/17 12:16 99 11/27/17 10:39 100 11/27/17 09:55 11/27/17 09:36 99 Intake and Output 11/27/17 11/27/17 11/27/17 06:59 14:59 22:59 Other: Voiding Method Toilet Weight 61.326 kg 66.5 kg PHYSICAL EXAMINATION: GENERAL: The patient is alert and oriented x3, not in any acute distress. Well developed, well nourished. HEENT: Pupils are round and equally reacting to light. EOMI. No scleral icterus. No conjunctival pallor. Normocephalic, atraumatic. No pharyngeal erythema. No thyromegaly. CARDIOVASCULAR: S1 and S2 present. No murmurs, rubs, or gallops. PULMONARY: Patient has crackles in the left lower lung bases ABDOMEN: Soft, nontender, nondistended, normoactive bowel sounds. No palpable organomegaly. MUSCULOSKELETAL: No joint swelling or deformity. EXTREMITIES: No cyanosis, clubbing, or pedal edema. NEUROLOGICAL: Gross neurological examination did not reveal any focal deficits. SKIN: No rashes. Results CBC & Chem 7: 11/27/17 09:30 11/27/17 09:30 Labs: Abnormal Lab Results - Last 24 Hours (Table) 11/27/17 11/27/17 11/27/17 Range/Units 09:30 09:30 09:30 RDW 16.6 H (11.5-15.5) % INR 1.2 H (<1.2) BUN 24 H (7-17) mg/dL Glucose 143 H (74-99) mg/dL Thrombosis Risk Factor Assmnt - Choose All That Apply Any of the Below Risk Factors Present?: Yes Other Risk Factors: Yes Each Risk Factor Represents 3 Points: Age 75 years or older Other congenital or acquired thrombophilia - If yes, enter type in comment: No Thrombosis Risk Factor Assessment Total Risk Factor Score: 3 Thrombosis Risk Factor Assessment Level: Moderate Risk Assessment and Plan Plan: -Shortness of breath most probably related to bradycardia. Patient may have sick sinus syndrome because of which patient is going for pacemaker placement continue with other rate control medications for now except for verapamil. Patient may have chronic component of mild chronic diastolic dysfunction with acute exacerbation. Patient will be resumed on oral Lasix may need another additional dose of IV Lasix after the pacemaker placement. -Bronchitis probably bacterial in nature patient is receiving preoperative antibiotics which should help with bronchitis as well. -Asthma without any significant exacerbation. -History of atrial fibrillation patient is on anticoagulation which will be continued. -Type 2 diabetes mellitus sliding scale insulin hold off on oral hypoglycemic agents. -Hypertension -Hyperlipidemia -Osteoarthritis For above-mentioned chronic medical problems patient will be resumed on appropriate home medications.
[2017-11-27] MEDS ORDERED: HYDROcodone/APAP 5-325MG 1 EACH TAB PO PRN (19:33)
[2017-11-27] MEDS ORDERED: ACETAMINOPHEN TAB 325 MG TAB PO PRN (19:33)
[2017-11-27] MEDS ORDERED: SODIUM CHLORIDE 0.9% 500 ML IV ONE (19:45)
[2017-11-27] MEDS ORDERED: IODIXANOL 320 MG/ML 100 ML IV ONE (19:54)
[2017-11-27] MEDS ORDERED: ACETAMINOPHEN IV (For NPO) 1,000 MG in EMPTY BAG 1 BAG IVPB ONE (20:00)
[2017-11-27] MEDS: MIDAZOLAM 2 MG/2 ML VIAL IV ONE ×2 (20:11→21:32)
[2017-11-27] MEDS ORDERED: MIDAZOLAM 2 MG/2 ML VIAL ONE (20:12)
[2017-11-27] MEDS ORDERED: LIDOCAINE 1% INJ 10MG/ML (20 ML MDV) SQ ONE ×2 (20:16→20:55)
[2017-11-27] MEDS ORDERED: fentaNYL (PF) 50 MCG/ML 2 ML AMP ONE (20:21)
[2017-11-27] MEDS: fentaNYL (PF) 50 MCG/ML 2 ML AMP IV ONE ×3 (20:23→21:38)
[2017-11-27] MEDS ORDERED: SODIUM CHLORIDE 0.9% 250 ML IV ONE (20:24)
[2017-11-27 20:41] LABS: Hemoglobin A1C 6.7 % (4.0-6.0)
[2017-11-27] MEDS ORDERED: DOXYCYCLINE 50 MG CAP PO SCH (21:00)
[2017-11-27] MEDS: SYMBICORT 160-4.5 MCG INHALER INHALATION SCH (21:02)
[2017-11-27 21:26] LABS: Creatine Kinase MB 0.8 ng/mL (0.0-2.4); Troponin I 0.023 ng/mL (0.000-0.034)
--- NOTE | 2017-11-27 21:43 | P.PCN ---
Preoperative Diagnosis: Patient underwent EP procedure under conscious sedation/moderate sedation, monitoring of the level of consciousness and physiologic parameters including but not limited to vital signs and oxygenation. Patient tolerated the procedure well without any acute complications. Start time: 2012 Stop time: 2138 Total time 86 minutes Long procedure This was a difficult dual-chamber pacemaker implant procedure and took a longer time than usual 1. The anatomy of the axillary/subclavian vein cannulation to the first and second ribs was such that access was difficult. After multiple attempts 1 venous access was obtained at the second rib and another venous access at the level of the first rib, extrathoracic axillary 2. The standard 6-[place] leads were not stable in the right ventricle. Both a passive and a screw-in lead with attempted and were finally removed. They were placed with an 8-[place] MRI screw-in lead which was placed in the apex 3. Positioning of the atrial lead was fairly straightforward however there was a delayed rise in thresholds as well as a drop in the sensing despite the fact that this was a passive lead. Finally after several manipulations the lead was positioned in the right atrial appendage with adequate sensing and pacing function
[2017-11-27] MEDS: PANTOPRAZOLE 40 MG TABLET PO SCH (22:49)
[2017-11-27] MEDS: AMIODARONE 100 MG TAB PO SCH (22:49)
[2017-11-27] MEDS: ALBUTEROL NEBULIZED 2.5 MG/3 ML INHALATION PRN (23:12)
[2017-11-27] MEDS: SODIUM CHLORIDE 0.9% 1,000 ML IV SCH (23:15)
--- NOTE | 2017-11-27 23:15 | CE ---
CARDIAC ELECTROPHYSIOLOGY REPORT This is an 82-year-old female with history of tachy-drake syndrome referred by Dr. Gibson for dual-chamber pacemaker implantation. She has symptomatic sinus bradycardia with tiredness, fatigue, chronotropic incompetence and also has atrial fibrillation with RVR requiring drug therapy. PROCEDURE: The patient was brought to the EP lab in a fasting state. Written informed consent was obtained prior to the procedure. The left shoulder area was prepped and draped as per protocol. 1% lidocaine was used for local anesthesia. Left upper extremity venogram was performed. A 4 cm incision was made parallel to the deltopectoral groove, about 1.5 cm medial to it. The incision was carried down to the level of the pectoralis muscle. A subfascial pocket was made. Hemostasis was assured. The axillary vein access was somewhat difficult and finally one access was obtained at the level of the 2nd rib and the second access obtained to the level of the 1st rib. Both extrathoracic. Venous sheaths were placed and right atrial right ventricular leads placed. The standard [employer] [place] leads both passive lead and the screw-in lead were not stable in the right ventricle in either the apex nor in the septum. Multiple stylets were used. A stylet was used, but the leads could not be positioned with adequate stability. Therefore, the leads were then removed and a [employer] MRI lead LPA 1200M, 50 cm in length and serial number [id number] was screwed in the right RV apex and was very stable. R-waves were 12 mV, pacing impedance 850 ohms, pacing threshold 0.7 V at 0.4 milliseconds. 10 V test negative. The right atrial lead was a [employer] passive lead 1944, 46 cm in length and serial number [id number]. This was positioned in a very stable position in the right atrial appendage, however, after delay of about 5 minutes or so the P waves became terminated when pacer thresholds ishaan. This lead was positioned on multiple times in the right atrial appendage. In all positions, the lead was very stable, but the thresholds were not. Finally, I positioned it in the right atrial appendage with good sensing and pacing thresholds. The P waves were 1.3-2 mV, pacing impedance 510 ohms, pacing threshold 1.25 V at 0.4 milliseconds with a passive lead. 10 V test negative. Both leads were secured to the underlying pectoralis fascia using 2 nonabsorbable sutures. Pocket was irrigated with antibiotic solution. Leads were connected to the generator ([employer] model [id number], serial #[id number]. The leads and generator were placed in the subfascial pocket. The wound was closed in 3 layers and dressed per protocol. RESULTS: Successful dual chamber pacemaker implantation for symptomatic tachy-drake syndrome and symptomatic chronotropic incompetence. MMODL / IJN: [id number] /
[2017-11-27] MEDS: ACETAMINOPHEN TAB 325 MG TAB PO SCH (23:16)
[2017-11-28] MEDS: ceFAZolin IN SWFI 2 GM/20 ML SYRINGE IVP SCH ×4 (00:15→17:52)
[2017-11-28] MEDS ORDERED: METOCLOPRAMIDE 5 MG/ML 2 ML VIAL IVP PRN (00:24)
[2017-11-28] MEDS ORDERED: METOCLOPRAMIDE 5 MG/ML 2 ML VIAL ONE (00:27)
[2017-11-28 07:02] LABS: Glucose,Whole Blood 143 mg/dL (75-99)
[2017-11-28] MEDS: SYMBICORT 160-4.5 MCG INHALER INHALATION SCH ×2 (07:36→21:21)
[2017-11-28] MEDS: ALBUTEROL NEBULIZED 2.5 MG/3 ML INHALATION PRN ×2 (07:36→21:21)
[2017-11-28 07:45] LABS: Anisocytosis Slight; HCT 31.6 % (34.0-46.0); HGB 10.4 gm/dL (11.4-16.0); MCHC 32.8 g/dL (31.0-37.0); MCV 88.4 fL (80.0-100.0); Mean Platelet Volume 7.3; Platelet Count 319 k/uL (150-450); RBC 3.58 m/uL (3.80-5.40); RDW 16.2 % (11.5-15.5); WBC 10.7 k/uL (3.8-10.6)
[2017-11-28 08:06] LABS: Calcium 9.2 mg/dL (8.4-10.2); Potassium 3.9 mmol/L (3.5-5.1)
--- NOTE | 2017-11-28 08:06 | XR ---
EXAMINATION TYPE: XR chest 2V DATE OF EXAM: 11/28/2017 COMPARISON: Chest x-ray from yesterday and older studies. HISTORY: Lead placement check. TECHNIQUE: Frontal and lateral views of the chest are obtained. FINDINGS: There is redemonstration of cardiomegaly. There is new dual lead pacemaker with leads termi nating in right atrium and right ventricle. There are is persistent small left pleural effusion and a ssociated left basilar atelectasis and/or infiltrate. There is background chronic emphysematous mahmood e with persistent mild to moderate central vascular congestion. Osseous structures remain demineraliz ed. There is suspected some fluid in the right lung fissure. IMPRESSION: New dual lead pacemaker with leads in right atrium and right ventricle. No evidence of c omplication related to pacemaker placement. Other findings stable as there is chronic emphysematous c hange and cardiomegaly with fairly moderate central vascular and suspected small bilateral pleural ef fusions.
[2017-11-28] MEDS: PANTOPRAZOLE 40 MG TABLET PO SCH ×2 (08:22→17:51)
[2017-11-28] MEDS: NADOLOL 20 MG TAB PO SCH (08:22)
[2017-11-28] MEDS: POTASSIUM CHLORIDE ER 10 MEQ TAB.ER.PRT PO SCH (08:22)
[2017-11-28] MEDS ORDERED: FUROSEMIDE 40 MG TAB PO SCH (09:00)
[2017-11-28] MEDS ORDERED: FUROSEMIDE 10 MG/ML 4 ML VIAL IV STA (10:10)
[2017-11-28] MEDS: ASPIRIN 325 MG TAB PO SCH (11:21)
[2017-11-28] MEDS: AMIODARONE 100 MG TAB PO SCH ×2 (11:21→20:39)
[2017-11-28] MEDS: ACETAMINOPHEN TAB 325 MG TAB PO SCH ×2 (11:22→20:39)
[2017-11-28 12:13] LABS: Glucose,Whole Blood 101 mg/dL (75-99)
--- NOTE | 2017-11-28 12:35 | PN ---
PROGRESS NOTE This is a lady with chronic atrial fibrillation, sick sinus syndrome who underwent a permanent pacemaker performed by Dr. Serra yesterday. The pacemaker site is clean and dry. Chest x-ray reveals no complication. Patient is somewhat short of breath today. Vital signs are stable. There is JVD of 1 cm. No carotid bruit. S1, S2 heard normally. Short systolic murmur noted. Lungs reveal fine rales over both bases. Abdomen is soft. Lower extremities reveal diminished pulses. Pacemaker has been interrogated and is functioning well. The patient appears to be in a mild systolic heart failure type picture. I will recommend that we give her a small dose of Lasix and continue her other medications. We will increase activity and hopefully we will discharge her tomorrow. Discussed my thoughts in detail with the patient. The pacemaker has been interrogated and the thresholds and sensitivities are excellent. MMBRYANL / NEVAN: [id number] /
--- NOTE | 2017-11-28 15:00 | P.PN ---
Subjective Patient was admitted for symptomatic bradycardia is being treated for sick sinus syndrome and patient received a pacemaker yesterday. Patient the had issues with her shortness of breath found to be in the heart failure exacerbation chronic diastolic dysfunction with acute exacerbation received 1 dose of Lasix. Patient has significant pulmonary edema because of which she will need more dose of Lasix holding her discharged today we'll give her another dose later in the day and one more tomorrow morning before she can be discharged. Constitutional: Denied any fatigue denied any fever. Cardio vascular: denied any chest pain, palpitations Gastrointestinal denied any nausea vomiting Pulmonary: As mentioned in HPI Neurologic denied any new focal deficits Objective - Vital Signs Vital signs: Vital Signs Temp 97.5 F L 11/28/17 12:00 Pulse 60 11/28/17 12:00 Resp 18 11/28/17 12:00 BP 133/58 11/28/17 12:00 Pulse Ox 99 11/28/17 12:00 Intake & Output 11/27/17 11/28/17 11/28/17 18:59 06:59 18:59 Intake Total 400 240 Balance 400 240 Weight 66.5 kg Intake: IV 400 Oral 240 Other: Voiding Method Toilet Toilet Toilet # Voids 2 1 - Exam PHYSICAL EXAMINATION: GENERAL: The patient is alert and oriented x3, not in any acute distress. Well developed, well nourished. HEENT: Pupils are round and equally reacting to light. EOMI. No scleral icterus. No conjunctival pallor. Normocephalic, atraumatic. No pharyngeal erythema. No thyromegaly. CARDIOVASCULAR: S1 and S2 present. No murmurs, rubs, or gallops. PULMONARY: Patient has crackles in the left lower lung bases which actually improved today ABDOMEN: Soft, nontender, nondistended, normoactive bowel sounds. No palpable organomegaly. MUSCULOSKELETAL: No joint swelling or deformity. EXTREMITIES: No cyanosis, clubbing, or pedal edema. NEUROLOGICAL: Gross neurological examination did not reveal any focal deficits. SKIN: No rashes. - Labs CBC & Chem 7: 11/28/17 07:24 11/28/17 07:24 Labs: Abnormal Lab Results - Last 24 Hours (Table) 11/27/17 11/28/17 11/28/17 Range/Units 09:30 06:57 07:24 WBC (3.8-10.6) k/uL RBC (3.80-5.40) m/uL Hgb (11.4-16.0) gm/dL Hct (34.0-46.0) % RDW (11.5-15.5) % BUN 20 H (7-17) mg/dL Glucose 123 H (74-99) mg/dL POC Glucose (mg/dL) 143 H (75-99) mg/dL Hemoglobin A1c 6.7 H (4.0-6.0) % 11/28/17 11/28/17 Range/Units 07:24 12:08 WBC 10.7 H (3.8-10.6) k/uL RBC 3.58 L (3.80-5.40) m/uL Hgb 10.4 L (11.4-16.0) gm/dL Hct 31.6 L (34.0-46.0) % RDW 16.2 H (11.5-15.5) % BUN (7-17) mg/dL Glucose (74-99) mg/dL POC Glucose (mg/dL) 101 H (75-99) mg/dL Hemoglobin A1c (4.0-6.0) % Assessment and Plan Plan: -Shortness of breath most probably related to bradycardia. Patient may have sick sinus syndrome because of which patient had pacemaker placement continue with other rate control medications Acute hypoxic respiratory failure: Secondary to acute on chronic diastolic dysfunction Lasix as mentioned above repeat basic metabolic profile tomorrow -Bronchitis probably bacterial in nature, patient will be started on doxycycline -Asthma without any significant exacerbation. -History of atrial fibrillation patient is on anticoagulation which will be continued. -Type 2 diabetes mellitus sliding scale insulin hold off on oral hypoglycemic agents. -Hypertension -Hyperlipidemia -Osteoarthritis For above-mentioned chronic medical problems patient will be resumed on appropriate home medications.
[2017-11-28 17:22] LABS: Glucose,Whole Blood 89 mg/dL (75-99)
[2017-11-28] MEDS: SODIUM CHLORIDE 0.9% 1,000 ML IV SCH (19:52)
[2017-11-28] MEDS: FUROSEMIDE 10 MG/ML 4 ML VIAL IV SCH (20:41)
[2017-11-28 20:54] LABS: Glucose,Whole Blood 132 mg/dL (75-99)
[2017-11-29] MEDS: ALBUTEROL NEBULIZED 2.5 MG/3 ML INHALATION PRN (07:52)
[2017-11-29] MEDS: SYMBICORT 160-4.5 MCG INHALER INHALATION SCH (07:52)
[2017-11-29 08:17] LABS: Calcium 9.4 mg/dL (8.4-10.2); Potassium 3.7 mmol/L (3.5-5.1)
[2017-11-29 08:27] VITALS: RESP 18
[2017-11-29] MEDS: PANTOPRAZOLE 40 MG TABLET PO SCH (08:28)
[2017-11-29] MEDS: ACETAMINOPHEN TAB 325 MG TAB PO SCH (08:28)
[2017-11-29] MEDS: ASPIRIN 325 MG TAB PO SCH (08:28)
[2017-11-29] MEDS: POTASSIUM CHLORIDE ER 10 MEQ TAB.ER.PRT PO SCH (08:29)
[2017-11-29] MEDS: FUROSEMIDE 10 MG/ML 4 ML VIAL IV SCH (08:29)
[2017-11-29] MEDS: NADOLOL 20 MG TAB PO SCH (08:29)
[2017-11-29] MEDS: AMIODARONE 100 MG TAB PO SCH (08:29)
[2017-11-29] MEDS ORDERED: APIXABAN 5 MG TAB PO SCH (09:00)
--- NOTE | 2017-11-29 12:12 | PN ---
PROGRESS NOTE This elderly lady underwent a permanent pacemaker placement by Dr. Serra the day before yesterday. The site is clean and dry. Pacemaker is functioning well. She has atrial pacing at this time with intrinsic ventricular beats. Hemodynamically stable, breathing is easier. I gave her some Lasix IV push yesterday. She is doing much better. She is not in any respiratory distress. I am recommending that we can increase activity and discharge her and see Dr. Gibson in one week for an office visit and also a device check. Blood pressure is 116/80, pulse rate is 60, paced. S1, S2 heard normally, short systolic murmur noted. Lungs are clearer than yesterday. Abdomen and lower extremity exam unchanged. Patient can be discharged today. The pacemaker has been checked. Parameters are good. Chest x-ray was unremarkable. MMODL / IJN: [id number] /
[2017-11-29 12:19] LABS: Glucose,Whole Blood 58 mg/dL (75-99)
[2017-11-29 12:30] LABS: Glucose,Whole Blood 87 mg/dL (75-99)
[2017-11-29 13:12] VITALS: BP 134/60; PULSE 68; TEMP 97.7
--- NOTE | 2017-11-29 16:24 | P.DS ---
Providers Date of admission: 11/28/17 15:43 Attending physician: Kashif Philippe Consults: 11/27/17 10:28 Consult Physician Urgent Consulting Provider: Mookie Gibson Consult Reason/Comments: ?need for pacer Do you want consulting provider notified?: Already Contacted Primary care physician: Royal Davison [facility] Course: Patient was admitted for symptomatic bradycardia is being treated for sick sinus syndrome and patient received a pacemaker yesterday. Patient the had issues with her shortness of breath found to be in the heart failure exacerbation chronic diastolic dysfunction with acute exacerbation received 1 dose of Lasix. Patient has significant pulmonary edema because of which she will need more dose of Lasix holding her discharged today we'll give her another dose later in the day and one more tomorrow morning before she can be discharged. 11/29/2017 Patient was pretty status improved off are granulating well without with good saturations patient will be discharged today. Patient was cleared by cardiology. Patient will be given 3 more days of doxycycline for her bronchitis. PHYSICAL EXAMINATION: GENERAL: The patient is alert and oriented x3, not in any acute distress. Well developed, well nourished. HEENT: Pupils are round and equally reacting to light. EOMI. No scleral icterus. No conjunctival pallor. Normocephalic, atraumatic. No pharyngeal erythema. No thyromegaly. CARDIOVASCULAR: S1 and S2 present. No murmurs, rubs, or gallops. PULMONARY: Patient has crackles in the left lower lung bases which actually improved today ABDOMEN: Soft, nontender, nondistended, normoactive bowel sounds. No palpable organomegaly. MUSCULOSKELETAL: No joint swelling or deformity. EXTREMITIES: No cyanosis, clubbing, or pedal edema. NEUROLOGICAL: Gross neurological examination did not reveal any focal deficits. SKIN: No rashes. Assessment and Plan Plan: -Shortness of breath most probably related to bradycardia. Patient may have sick sinus syndrome because of which patient had pacemaker placement. Acute hypoxic respiratory failure: Secondary to acute on chronic diastolic dysfunction, improved and patient will be discharged on her home dose of Lasix -Bronchitis probably bacterial in nature, patient will be started on doxycycline -Asthma without any significant exacerbation. -History of atrial fibrillation patient is on anticoagulation which will be continued. -Type 2 diabetes mellitus sliding scale insulin hold off on oral hypoglycemic agents. -Hypertension -Hyperlipidemia -Osteoarthritis Plan - Discharge Summary Discharge Rx Participant: No New Discharge Prescriptions: New Doxycycline Monohydrate [Monodox] 100 mg PO BID 3 Days #6 cap Continue Apixaban [Eliquis] 5 mg PO BID Potassium Chloride [Klor-Con 10] 10 meq PO DAILY Fluticasone/Salmeterol [Advair 500-50 Diskus] 1 puff INHALATION RT-BID Omeprazole [PriLOSEC] 20 mg PO BID Glimepiride [Amaryl] 2 mg PO BID Albuterol Sulfate [Proair Hfa] 2 puff INHALATION RT-Q6H PRN PRN Reason: Shortness Of Breath Verapamil [Isoptin] 80 mg PO TID #90 tab Furosemide [Lasix] 40 mg PO DAILY Nadolol [Corgard] 40 mg PO DAILY Cholecalciferol [Vitamin D3] 10,000 unit PO DAILY Levalbuterol Nebulized [Xopenex Nebulized] 1.25 mg INHALATION RT-TID PRN #60 nebule PRN Reason: Shortness Of Breath Calcium Carbonate 1,000 mg PO DAILY Acetaminophen [Tylenol 8 Hour] 650 mg PO BID Cranberry Fruit Extract [Cranberry] 500 mg PO DAILY Cyanocobalamin (Vitamin B-12) [Vitamin B-12] 1,000 mcg PO DAILY Amiodarone [Cordarone] 100 mg PO BID Discharge Medication List Apixaban [Eliquis] 5 mg PO BID 11/24/14 [History] Potassium Chloride [Klor-Con 10] 10 meq PO DAILY 11/26/14 [History] Fluticasone/Salmeterol [Advair 500-50 Diskus] 1 puff INHALATION RT-BID 12/14/14 [History] Omeprazole [PriLOSEC] 20 mg PO BID 06/06/15 [History] Glimepiride [Amaryl] 2 mg PO BID 06/07/15 [History] Albuterol Sulfate [Proair Hfa] 2 puff INHALATION RT-Q6H PRN 12/13/15 [History] Verapamil [Isoptin] 80 mg PO TID #90 tab 12/16/15 [Rx] Furosemide [Lasix] 40 mg PO DAILY 05/20/16 [History] Nadolol [Corgard] 40 mg PO DAILY 05/20/16 [History] Cholecalciferol [Vitamin D3] 10,000 unit PO DAILY 09/13/16 [History] Levalbuterol Nebulized [Xopenex Nebulized] 1.25 mg INHALATION RT-TID PRN #60 nebule 01/05/17 [Rx] Acetaminophen [Tylenol 8 Hour] 650 mg PO BID 08/14/17 [History] Calcium Carbonate 1,000 mg PO DAILY 08/14/17 [History] Cranberry Fruit Extract [Cranberry] 500 mg PO DAILY 08/14/17 [History] Cyanocobalamin (Vitamin B-12) [Vitamin B-12] 1,000 mcg PO DAILY 09/24/17 [ History] Amiodarone [Cordarone] 100 mg PO BID 11/27/17 [History] Doxycycline Monohydrate [Monodox] 100 mg PO BID 3 Days #6 cap 11/29/17 [Rx] Follow up Appointment(s)/Referral(s): [facility], [NON-STAFF] - Royal Farias MD [Primary Care Provider] - 1-2 days Mookie Gibson MD [STAFF PHYSICIAN] - 1 Week (Appointment made for device check on MondayDecember 04 @ 3:00pm.) Activity/Diet/Wound Care/Special Instructions: PATIENT EDUCATION MATERIAL Instructions following a heart rhythm device implant. 1. Keep dressing DRY for 5 DAYS. You may cover the area with Saran or Cling Wrap, prior to a shower. 2. The dressing will be removed in the Device Clinic @ [facility]. Absorbable sutures were used to close the wound. 3. Avoid raising the [left] arm above the shoulder level. [4 week restriction] 4. Avoid arm movements, like backscratching, rubbing the head, or pulling on a cord. (4 weeks restriction) 5. Gentle range of motion movements of the shoulder, closest to the incision should be performed to avoid a frozen shoulder. (Pendulum exercises of the shoulder) 6. The opposite arm may be used freely. 7. Avoid driving for 7 days. 8. Avoid activities such as golfing, swimming, weed whacking, lifting more than 10 pounds weight, bowling, gymnastics and weight training/lifting. (6 weeks restriction) 9. Activities such as wood chopping with an axe, pull-ups in the gymnasium, power lifting, arc-welding, being close to home induction cooktops will always be a problem. 10. Arm sling is a mere reminder not to raise the arm above the head. However you do not need to keep the arm completely immobilized. Your free to move the arm and use it and for normal activities. In case of any problems, please call [facility], Stephanie Villalobos, @ [phone], Attention: Device Clinic Follow-up in the device clinic in 5 days Follow-up with Dr. Gibson as scheduled Discharge Disposition: HOME WITH HOME HEALTH SERVICES
== END 2017-11-29 15:00 | disposition home health service (06) | DRG 226 ==
LOC: EC 09:17 → 3OBS 11:15 → OBSVTOIN 11-28 15:43
PROVIDERS: ADMIT Hospitalist; ATTEND Hospitalist
PROC: 0JH608Z Insertion of Defibrillator Generator into Chest Subcutaneous Tissue and Fascia, Open Approach (ICD-10-PCS; principal; 2017-11-28)
PROC: 02HK3KZ Insertion of Defibrillator Lead into Right Ventricle, Percutaneous Approach (ICD-10-PCS; 2017-11-28)
PROC: 02H63KZ Insertion of Defibrillator Lead into Right Atrium, Percutaneous Approach (ICD-10-PCS; 2017-11-28)
DX: I11.0 Hypertensive heart disease with heart failure (principal); J96.01 Acute respiratory failure with hypoxia; J44.0 Chronic obstructive pulmonary disease with (acute) lower respiratory infection; J98.11 Atelectasis; I50.33 Acute on chronic diastolic (congestive) heart failure; I42.2 Other hypertrophic cardiomyopathy; I49.5 Sick sinus syndrome; I48.0 Paroxysmal atrial fibrillation; I48.2 Chronic atrial fibrillation; M13.0 Polyarthritis, unspecified; E11.9 Type 2 diabetes mellitus without complications; J44.9 Chronic obstructive pulmonary disease, unspecified; F32.9 Major depressive disorder, single episode, unspecified; F41.9 Anxiety disorder, unspecified; E78.5 Hyperlipidemia, unspecified; K21.9 Gastro-esophageal reflux disease without esophagitis; M81.0 Age-related osteoporosis without current pathological fracture; R29.6 Repeated falls; I25.2 Old myocardial infarction; Z79.01 Long term (current) use of anticoagulants; Z79.899 Other long term (current) drug therapy; Z91.81 History of falling; Z87.01 Personal history of pneumonia (recurrent)
CPT/HCPCS: 33208; 36415; 71046; 80048; 80053; 80061; 82550; 82553; 83036; 83880; 84484; 85025; 85027; 85610; 85730; 93005; 94640; 94760; 99291

== ENCOUNTER → 2018-02-07 | Outpatient (CLI) | payer MEDICARE | END | disposition home or self-care (01) | LOC: LABWHC1 13:34 | PROVIDERS: ATTEND Internal Medicine Endocrinology, Diabetes & Metabolism | DX: M81.0 Age-related osteoporosis without current pathological fracture (principal) | CPT/HCPCS: 36415; 82306; 82523; 84443 ==

== ENCOUNTER → 2018-02-07 | Outpatient (CLI) | payer MEDICARE ==
[2018-02-07 13:20] VITALS: BP 130/62; PULSE 60; RESP 16; TEMP 98.4
== END | disposition home or self-care (01) ==
LOC: PROCWHC3 12:41
PROVIDERS: ATTEND Internal Medicine Endocrinology, Diabetes & Metabolism
DX: M81.0 Age-related osteoporosis without current pathological fracture (principal)
CPT/HCPCS: 96372; J0897

== ENCOUNTER → 2018-03-29 | Outpatient (CLI) | payer MEDICARE | END | disposition home or self-care (01) | LOC: LABWHC1 07:17 | PROVIDERS: ATTEND Internal Medicine Cardiovascular Disease | DX: E03.2 Hypothyroidism due to medicaments and other exogenous substances (principal) | CPT/HCPCS: 36415; 80061; 84443; 84450; 84460 ==

== ENCOUNTER → 2018-04-26 | Outpatient (CLI) | payer MEDICARE ==
--- NOTE | 2018-04-26 09:38 | XR ---
EXAMINATION TYPE: XR chest 2V DATE OF EXAM: 04/26/2018 COMPARISON: NONE HISTORY: Shortness of breath TECHNIQUE: Frontal and lateral views of the chest are obtained. FINDINGS: Scattered senescent parenchymal changes noted. Hyperinflation compatible with COPD. No evidence for infiltrate. No evidence for atelectasis. Heart size is stable and enlarged. Resolution of previously noted pulmonary venous congestion. Suspec t small residual pleural effusions. Linear atelectasis right midlung zone. Mediastinal structures are stable and grossly unremarkable. No evidence for hilar prominence. Degenerative changes dorsal spine. IMPRESSION: 1. Resolution of previously noted pulmonary venous congestion. Suspect small residual pleural effusio ns. Linear atelectasis right midlung zone.
== END | disposition home or self-care (01) ==
LOC: RADXRMAIN 09:13
PROVIDERS: ATTEND Internal Medicine
DX: J98.11 Atelectasis (principal)
CPT/HCPCS: 71046

== ENCOUNTER 2018-06-09 19:56 | Inpatient (IN) | payer MEDICARE ==
[2018-06-09] MEDS ORDERED: SODIUM CHLORIDE 0.9% 1,000 ML IV STA (20:04)
[2018-06-09] MEDS ORDERED: IPRATROPIUM-ALBUTEROL 3 ML NEB INHALATION STA (20:04)
[2018-06-09 20:58] LABS: Basophils # (A) 0.1 k/uL (0-0.2); Basophils % (A) 1 %; Eosinophils # (A) 0.1 k/uL (0-0.7); Eosinophils % (A) 1 %; HCT 34.2 % (34.0-46.0); HGB 11.1 gm/dL (11.4-16.0); Lymphocytes # (A) 1.2 k/uL (1.0-4.8); Lymphocytes % (A) 10 %; MCH 27.7 pg (25.0-35.0); MCHC 32.5 g/dL (31.0-37.0); MCV 85.2 fL (80.0-100.0); Mean Platelet Volume 7.3; Monocytes # (A) 1.4 k/uL (0-1.0); Monocytes % (A) 11 %; Neutrophils # (A) 9.7 k/uL (1.3-7.7); Neutrophils % (A) 76 %; Platelet Count 344 k/uL (150-450); RBC 4.02 m/uL (3.80-5.40); RDW 15.8 % (11.5-15.5); WBC 12.8 k/uL (3.8-10.6)
[2018-06-09 21:08] LABS: Albumin 3.8 g/dL (3.5-5.0); Calcium 9.3 mg/dL (8.4-10.2); Magnesium 1.9 mg/dL (1.6-2.3); Potassium 3.9 mmol/L (3.5-5.1); Total Bilirubin 0.6 mg/dL (0.2-1.3); Total Protein 6.6 g/dL (6.3-8.2)
[2018-06-09] MEDS ORDERED: methylPREDNISolone SOD SUCCI 125 MG/2 ML VIAL IV STA (21:17)
--- NOTE | 2018-06-09 21:18 | ED ---
General Adult HPI - General Chief complaint: Shortness of Breath Stated complaint: CHEST CONGESTION Time Seen by Provider: 06/09/18 19:58 Source: patient, EMS, RN notes reviewed, old records reviewed Mode of arrival: EMS - History of Present Illness Initial comments: This is an 83-year-old female the ER for evaluation. This patient presents for evaluation regarding shortness of breath. Patient has persistent shortness of breath patient has history of asthma A. fib COPD and multiple cardiac risk factors. Patient is coming in for low outpatient oxygen, coming from home. Patient denies chest pain - Related Data Home Medications Medication Instructions Recorded Confirmed Apixaban [Eliquis] 5 mg PO BID 11/24/14 06/10/18 Potassium Chloride [Klor-Con 10] 10 meq PO DAILY 11/26/14 06/10/18 Fluticasone/Salmeterol [Advair 1 puff INHALATION RT-BID 12/14/14 06/10/18 500-50 Diskus] Glimepiride [Amaryl] 2 mg PO BID 06/07/15 06/10/18 Albuterol Sulfate [Proair Hfa] 2 puff INHALATION RT-Q6H PRN 12/13/15 06/10/18 Furosemide [Lasix] 40 mg PO DAILY 05/20/16 06/10/18 Nadolol [Corgard] 40 mg PO DAILY 05/20/16 06/10/18 Cholecalciferol [Vitamin D3] 5,000 unit PO DAILY 09/13/16 06/10/18 Acetaminophen [Tylenol 8 Hour] 650 mg PO BID 08/14/17 06/10/18 Cyanocobalamin (Vitamin B-12) 1,000 mcg PO DAILY 09/24/17 06/10/18 [Vitamin B-12] Amiodarone [Cordarone] 100 mg PO DAILY 11/27/17 06/10/18 Levalbuterol Nebulized [Xopenex 1.25 mg INHALATION RT-BID PRN 06/10/18 06/10/18 Nebulized] Omeprazole 40 mg PO DAILY 06/10/18 06/10/18 Verapamil [Isoptin] 80 mg PO BID 06/10/18 06/10/18 Allergies Allergy/AdvReac Type Severity Reaction Status Date / Time diltiazem AdvReac Itching Verified 06/10/18 12:11 morphine AdvReac Confusion Verified 06/10/18 12:11 Review of Systems ROS Statement: Those systems with pertinent positive or pertinent negative responses have been documented in the HPI. ROS Other: All systems not noted in ROS Statement are negative. Past Medical History Past Medical History: Atrial Fibrillation, Asthma, Chest Pain / Angina, Heart Failure, COPD, Diabetes Mellitus, GERD/Reflux, Hyperlipidemia, Hypertension, Myocardial Infarction (LA), Osteoarthritis (OA), Pneumonia Additional Past Medical History / Comment(s): Afib RVR, NIDDM type II, arthritis multiple joints, osteoporosis, chronic anemia, falls, 2013 shingelles Last Myocardial Infarction Date:: 07/16/11 History of Any Multi-Drug Resistant Organisms: None Reported Past Surgical History: Appendectomy, Breast Surgery, Heart Catheterization, Pacemaker, Tubal Ligation Additional Past Surgical History / Comment(s): 02/2011 cardiac cath-normal, benign lumpectomy bronchoscopy, EGD/colonoscopy, bilateral cataract removals, 2010 VATS L lung, falls. Past Anesthesia/Blood Transfusion Reactions: No Reported Reaction Additional Past Anesthesia/Blood Transfusion Reaction / Comment(s): Pt has received blood in past without reaction Type of Cardiac Device: Permanent Pacemaker Device Placement Date:: NOVEMBER 28 2017 Smoking Status: Never smoker - Past Family History Sister(s) Family Medical History: Cancer Additional Family Medical History / Comment(s): breast CA Mother Family Medical History: No Reported History Additional Family Medical History / Comment(s): from car accident no other hx known Father Family Medical History: No Reported History Additional Family Medical History / Comment(s): committed suicide Daughter(s) Family Medical History: Cancer Additional Family Medical History / Comment(s): breast CA General Exam General appearance: alert, in no apparent distress, anxious Head exam: Present: atraumatic, normocephalic, normal inspection Eye exam: Present: normal appearance, PERRL, EOMI. Absent: scleral icterus, conjunctival injection, periorbital swelling ENT exam: Present: normal exam, mucous membranes moist Neck exam: Present: normal inspection. Absent: tenderness, meningismus, lymphadenopathy Respiratory exam: Present: wheezes. Absent: respiratory distress, rales, rhonchi, stridor Cardiovascular Exam: Present: regular rate, normal rhythm, normal heart sounds. Absent: systolic murmur, diastolic murmur, rubs, gallop, clicks GI/Abdominal exam: Present: soft, normal bowel sounds. Absent: distended, tenderness, guarding, rebound, rigid Extremities exam: Present: normal inspection, full ROM, normal capillary refill. Absent: tenderness, pedal edema, joint swelling, calf tenderness Back exam: Present: normal inspection Neurological exam: Present: alert, oriented X3, CN II-XII intact Psychiatric exam: Present: normal affect, normal mood Skin exam: Present: warm, dry, intact, normal color. Absent: rash Course Vital Signs 06/09/18 06/09/18 06/09/18 20:00 20:06 21:02 Temperature 99.4 F Pulse Rate 70 64 Respiratory 18 18 18 Rate Blood Pressure 165/76 O2 Sat by Pulse 97 98 Oximetry 06/09/18 06/09/18 06/09/18 21:09 21:15 21:33 Temperature Pulse Rate 60 63 66 Respiratory 16 Rate Blood Pressure 143/65 O2 Sat by Pulse 98 Oximetry 06/09/18 23:29 Temperature 98.4 F Pulse Rate 66 Respiratory 18 Rate Blood Pressure 142/67 O2 Sat by Pulse 97 Oximetry - Reevaluation(s) Reevaluation #1: No improvement here in the emergency room Medical Decision Making - Medical Decision Making 83 female the ER with history of pneumonia and COPD coming in for shortness of breath. Patient is to be admitted for fever control and breathing treatments and monitoring of cardiopulmonary status - Lab Data Result diagrams: 06/09/18 20:41 06/09/18 20:41 Lab Results 06/09/18 06/09/18 06/09/18 Range/Units 20:41 20:41 20:41 WBC 12.8 H (3.8-10.6) k/uL RBC 4.02 (3.80-5.40) m/uL Hgb 11.1 L (11.4-16.0) gm/dL Hct 34.2 (34.0-46.0) % MCV 85.2 (80.0-100.0) fL MCH 27.7 (25.0-35.0) pg MCHC 32.5 (31.0-37.0) g/dL RDW 15.8 H (11.5-15.5) % Plt Count 344 (150-450) k/uL Neutrophils % 76 % Lymphocytes % 10 % Monocytes % 11 % Eosinophils % 1 % Basophils % 1 % Neutrophils # 9.7 H (1.3-7.7) k/uL Lymphocytes # 1.2 (1.0-4.8) k/uL Monocytes # 1.4 H (0-1.0) k/uL Eosinophils # 0.1 (0-0.7) k/uL Basophils # 0.1 (0-0.2) k/uL PT (9.0-12.0) sec INR (<1.2) APTT (22.0-30.0) sec Sodium 138 (137-145) mmol/L Potassium 3.9 (3.5-5.1) mmol/L Chloride 102 (98-107) mmol/L Carbon Dioxide 27 (22-30) mmol/L Anion Gap 9 mmol/L BUN 26 H (7-17) mg/dL Creatinine 1.00 (0.52-1.04) mg/dL Est GFR (CKD-EPI)AfAm 61 (>60 ml/min/1.73 sqM) Est GFR (CKD-EPI)NonAf 53 (>60 ml/min/1.73 sqM) Glucose 113 H (74-99) mg/dL Calcium 9.3 (8.4-10.2) mg/dL Magnesium 1.9 (1.6-2.3) mg/dL Total Bilirubin 0.6 (0.2-1.3) mg/dL AST 20 (14-36) U/L ALT 26 (9-52) U/L Alkaline Phosphatase 78 (38-126) U/L Total Creatine Kinase 51 (30-135) U/L CK-MB (CK-2) 0.9 (0.0-2.4) ng/mL CK-MB (CK-2) Rel Index 1.8 Troponin I 0.017 (0.000-0.034) ng/mL NT-Pro-B Natriuret Pep pg/mL Total Protein 6.6 (6.3-8.2) g/dL Albumin 3.8 (3.5-5.0) g/dL 06/09/18 06/09/18 Range/Units 20:41 21:03 WBC (3.8-10.6) k/uL RBC (3.80-5.40) m/uL Hgb (11.4-16.0) gm/dL Hct (34.0-46.0) % MCV (80.0-100.0) fL MCH (25.0-35.0) pg MCHC (31.0-37.0) g/dL RDW (11.5-15.5) % Plt Count (150-450) k/uL Neutrophils % % Lymphocytes % % Monocytes % % Eosinophils % % Basophils % % Neutrophils # (1.3-7.7) k/uL Lymphocytes # (1.0-4.8) k/uL Monocytes # (0-1.0) k/uL Eosinophils # (0-0.7) k/uL Basophils # (0-0.2) k/uL PT 10.3 (9.0-12.0) sec INR 1.0 (<1.2) APTT 24.4 (22.0-30.0) sec Sodium (137-145) mmol/L Potassium (3.5-5.1) mmol/L Chloride (98-107) mmol/L Carbon Dioxide (22-30) mmol/L Anion Gap mmol/L BUN (7-17) mg/dL Creatinine (0.52-1.04) mg/dL Est GFR (CKD-EPI)AfAm (>60 ml/min/1.73 sqM) Est GFR (CKD-EPI)NonAf (>60 ml/min/1.73 sqM) Glucose (74-99) mg/dL Calcium (8.4-10.2) mg/dL Magnesium (1.6-2.3) mg/dL Total Bilirubin (0.2-1.3) mg/dL AST (14-36) U/L ALT (9-52) U/L Alkaline Phosphatase (38-126) U/L Total Creatine Kinase (30-135) U/L CK-MB (CK-2) (0.0-2.4) ng/mL CK-MB (CK-2) Rel Index Troponin I (0.000-0.034) ng/mL NT-Pro-B Natriuret Pep 3260 pg/mL Total Protein (6.3-8.2) g/dL Albumin (3.5-5.0) g/dL - Radiology Data Radiology results: report reviewed (Chest x-rays negative for acute disease), image reviewed Disposition Clinical Impression: Acute exacerbation of chronic obstructive airways disease, COPD exacerbation, Fever, Afib Disposition: ADMITTED IP TO THIS HOSP Condition: Fair Is patient prescribed a controlled substance at d/c from ED?: No
[2018-06-09 21:25] LABS: Creatine Kinase MB 0.9 ng/mL (0.0-2.4); Troponin I 0.017 ng/mL (0.000-0.034)
[2018-06-09 21:36] LABS: Partial Thromboplastin Time 24.4 sec (22.0-30.0); Prothrombin Time 10.3 sec (9.0-12.0)
--- NOTE | 2018-06-09 22:05 | XR ---
EXAMINATION TYPE: XR chest 2V DATE OF EXAM: 06/09/2018 COMPARISON: 04/26/2018 INDICATION: Difficulty breathing TECHNIQUE: Frontal and lateral views of the chest are obtained. FINDINGS: The heart size is enlarged. The pulmonary vasculature is normal. There is hyperinflation flattened diaphragms compatible COPD. Increased retrosternal airspace is pres ent. Electronic device overlies left chest.. IMPRESSION: 1. COPD.
[2018-06-10] MEDS ORDERED: ALBUTEROL NEBULIZED 2.5 MG/3 ML INHALATION PRN (06:42)
[2018-06-10] MEDS ORDERED: LEVALBUTEROL NEBULIZED 1.25 MG INHALATION PRN (06:42)
[2018-06-10] MEDS: IPRATROPIUM-ALBUTEROL 3 ML NEB INHALATION SCH ×4 (07:17→19:17)
[2018-06-10 07:27] LABS: Glucose,Whole Blood 203 mg/dL (75-99)
[2018-06-10] MEDS ORDERED: methylPREDNISolone SOD SUCCI 40 MG/ML 1 ML VIAL IV SCH (08:00)
[2018-06-10] MEDS ORDERED: SYMBICORT 160-4.5 MCG INHALER INHALATION SCH (08:00)
[2018-06-10] MEDS: INSULIN ASPART 100 UNIT/ML 1 ML 10 ML VIAL SQ SCH ×4 (08:41→23:01)
[2018-06-10] MEDS: CALCIUM CARBONATE 500 MG CHEWABLE PO SCH (08:41)
[2018-06-10] MEDS: GLIMEPIRIDE 2 MG TAB PO SCH (08:42)
[2018-06-10] MEDS: POTASSIUM CHLORIDE ER 10 MEQ TAB.ER.PRT PO SCH (08:42)
[2018-06-10] MEDS: NADOLOL 20 MG TAB PO SCH (08:42)
[2018-06-10] MEDS: PANTOPRAZOLE 40 MG TABLET PO SCH (08:42)
[2018-06-10] MEDS: AMIODARONE 100 MG TAB PO SCH ×2 (08:42→22:15)
[2018-06-10] MEDS: CHOLECALCIFEROL 1,000 UNIT TAB PO SCH (08:42)
[2018-06-10] MEDS: CYANOCOBALAMIN 500 MCG TAB PO SCH (08:42)
[2018-06-10] MEDS: APIXABAN 5 MG TAB PO SCH ×2 (08:49→22:15)
[2018-06-10] MEDS: ACETAMINOPHEN TAB 325 MG TAB PO SCH ×4 (08:49→22:17)
[2018-06-10] MEDS ORDERED: VERAPAMIL 80 MG TAB PO SCH ×2 (09:00→14:02)
[2018-06-10] MEDS ORDERED: ENOXAPARIN 40 MG/0.4 ML SYRINGE SQ SCH (09:00)
[2018-06-10] MEDS ORDERED: FUROSEMIDE 40 MG TAB PO SCH (09:00)
[2018-06-10 12:27] LABS: Glucose,Whole Blood 165 mg/dL (75-99)
--- NOTE | 2018-06-10 13:11 | P.CNPUL ---
History of Present Illness Consult date: 06/10/18 Reason for consult: dyspnea, cough, COPD, hypoxemia Chief complaint: Shortness of breath, cough, wheezing, phlegm production. History of present illness: Pulmonary Consult dated 06/10/2018 83-year-old female well-known to me. She does have a history of underlying COPD. She comes into the hospital with a couple weeks worth of increasing shortness of breath chest tightness wheezing cough chest congestion and phlegm production. She's my partners early this past week. She was treated with steroids and antibiotics and did not improve. In addition, she saw her primary doctor, Dr. Farias, we'll also give her steroids and antibiotics. That was before see my partner.Seem to practitioner isn't receiving 2 rounds of steroids and antibiotics, the patient was not much better and she came into the emergency room to be evaluated. She was seen by one of the ER doctors who had no history in his note from last night. Her complaints include shortness of breath chest tightness wheezing cough chest congestion shortness of breath and phlegm production. The patient has a history of atrial fibrillation COPD/ asthma angina pectoris heart failure diabetes GERD hyperlipidemia hypertension previous myocardial infarction and pneumonia with parapneumonic effusion which required chest tube drainage. She also required a VATS decortication of the left lung secondary to pneumonia in the left parapneumonic effusion. Review of Systems A 14 point review of system is positive for shortness breath chest tightness wheezing cough chest congestion and phlegm production. The phlegm is yellow green. Past Medical History Past Medical History: Atrial Fibrillation, Asthma, Chest Pain / Angina, Heart Failure, COPD, Diabetes Mellitus, GERD/Reflux, Hyperlipidemia, Hypertension, Myocardial Infarction (CO), Osteoarthritis (OA), Pneumonia Additional Past Medical History / Comment(s): Afib RVR, NIDDM type II, arthritis multiple joints, osteoporosis, chronic anemia, falls, 2013 shingelles Last Myocardial Infarction Date:: 07/16/11 History of Any Multi-Drug Resistant Organisms: None Reported Past Surgical History: Appendectomy, Breast Surgery, Heart Catheterization, Pacemaker, Tubal Ligation Additional Past Surgical History / Comment(s): 02/2011 cardiac cath-normal, benign lumpectomy bronchoscopy, EGD/colonoscopy, bilateral cataract removals, 2010 VATS L lung, falls. Past Anesthesia/Blood Transfusion Reactions: No Reported Reaction Additional Past Anesthesia/Blood Transfusion Reaction / Comment(s): Pt has received blood in past without reaction Type of Cardiac Device: Permanent Pacemaker Device Placement Date:: NOVEMBER 28 2017 Past Psychological History: Anxiety, Depression Additional Psychological History / Comment(s): Pt resides alone at [facility]. She uses either a cane or walker to ambulate. She has a nebulizer and glucometer. She drives. No outside services. Smoking Status: Never smoker Past Alcohol Use History: None Reported Past Drug Use History: None Reported - Past Family History Sister(s) Family Medical History: Cancer Additional Family Medical History / Comment(s): breast CA Mother Family Medical History: No Reported History Additional Family Medical History / Comment(s): from car accident no other hx known Father Family Medical History: No Reported History Additional Family Medical History / Comment(s): committed suicide Daughter(s) Family Medical History: Cancer Additional Family Medical History / Comment(s): breast CA Medications and Allergies Home Medications Medication Instructions Recorded Confirmed Type Apixaban [Eliquis] 5 mg PO BID 11/24/14 06/10/18 History Potassium Chloride [Klor-Con 10] 10 meq PO DAILY 11/26/14 06/10/18 History Fluticasone/Salmeterol [Advair 1 puff INHALATION RT-BID 12/14/14 06/10/18 History 500-50 Diskus] Glimepiride [Amaryl] 2 mg PO BID 06/07/15 06/10/18 History Albuterol Sulfate [Proair Hfa] 2 puff INHALATION RT-Q6H PRN 12/13/15 06/10/18 History Furosemide [Lasix] 40 mg PO DAILY 05/20/16 06/10/18 History Nadolol [Corgard] 40 mg PO DAILY 05/20/16 06/10/18 History Cholecalciferol [Vitamin D3] 5,000 unit PO DAILY 09/13/16 06/10/18 History Acetaminophen [Tylenol 8 Hour] 650 mg PO BID 08/14/17 06/10/18 History Cyanocobalamin (Vitamin B-12) 1,000 mcg PO DAILY 09/24/17 06/10/18 History [Vitamin B-12] Amiodarone [Cordarone] 100 mg PO DAILY 11/27/17 06/10/18 History Levalbuterol Nebulized [Xopenex 1.25 mg INHALATION RT-BID PRN 06/10/18 06/10/18 History Nebulized] Omeprazole 40 mg PO DAILY 06/10/18 06/10/18 History Verapamil [Isoptin] 80 mg PO BID 06/10/18 06/10/18 History Allergies Allergy/AdvReac Type Severity Reaction Status Date / Time diltiazem AdvReac Itching Verified 06/10/18 12:11 morphine AdvReac Confusion Verified 06/10/18 12:11 Physical Exam Osteopathic Statement: *. No significant issues noted on an osteopathic structural exam other than those noted in the History and Physical/Consult. Vitals: Vital Signs Temp Pulse Pulse Resp BP BP Pulse Ox 06/10/18 11:38 78 06/10/18 11:27 76 06/10/18 07:28 74 06/10/18 07:18 74 06/10/18 06:27 97.7 F 65 17 123/62 96 06/10/18 00:19 99.0 F 64 17 126/70 96 06/09/18 23:29 98.4 F 66 18 142/67 97 06/09/18 21:33 66 16 143/65 98 06/09/18 21:15 63 06/09/18 21:09 60 06/09/18 21:02 64 18 98 06/09/18 20:06 18 06/09/18 20:00 99.4 F 70 18 165/76 97 Intake and Output 06/09/18 06/10/18 06/10/18 22:59 06:59 14:59 Other: Voiding Method Toilet Toilet # Voids 1 Weight 65.771 kg No acute distress, oriented 3. No audible wheezing, no use of accessory muscles, no nasal flaring. HEENT examination is grossly unremarkable. Mucous membranes are moist. No oral lesions. Neck supple. Full range of motion. No adenopathy thyromegaly or neck vein distention. Cardiovascular examination reveals irregular rhythm and rate. S1-S2 normal. No S3 or S4. No discernible murmur noted. Heart rate 89 bpm. Lungs reveal diminished breath sounds throughout. This some expiratory rhonchi and wheezes. This prolongation on forced maneuver. Adventitious lung sounds are more prominent on forced maneuver. Breath sounds equal bilaterally. No crackles appreciated. Abdomen soft bowel sounds are heard. No masses or tenderness. Extremities are intact. No cyanosis clubbing or edema. Skin is without rash or lesion. Neurologic examination is brief but nonfocal. Results - Laboratory Findings CBC and BMP: 06/09/18 20:41 06/09/18 20:41 PT/INR, D-dimer PT 10.3 sec (9.0-12.0) 06/09/18 21:03 INR 1.0 (<1.2) 06/09/18 21:03 Abnormal lab findings: Abnormal Labs 06/09/18 06/09/18 06/10/18 20:41 20:41 07:23 WBC 12.8 H Hgb 11.1 L RDW 15.8 H Neutrophils # 9.7 H Monocytes # 1.4 H BUN 26 H Glucose 113 H POC Glucose (mg/dL) 203 H 06/10/18 12:24 WBC Hgb RDW Neutrophils # Monocytes # BUN Glucose POC Glucose (mg/dL) 165 H - Diagnostic Findings Chest x-ray: report reviewed, image reviewed (Labs, x-rays, and medications are reviewed. Chest x-ray only shows changes of COPD.) Assessment and Plan Assessment: Assessment COPD exacerbation complicated by purulent tracheobronchitis, without seth pneumonia History of chronic atrial fibrillation History of angina pectoris History of CHF Diabetes mellitus by history GERD by history History of hyperlipidemia History of hypertension Previous history of myocardial infarction History of DJD Previous episode of severe pneumonia with parapneumonic effusion, status post VATS decortication of the left lung Status post heart catheterization and pacemaker insertion. History of chronic anemia History of osteoporosis Plan: Plan dated 06/10/2018 The patient was started on usual medications including DuoNeb, Pulmicort, Perforomist, and systemic corticosteroids. In addition, the patient will be given oral antibiotics. We'll hoping that at 3 day stay in the hospital be enough to turn her around. The patient otherwise is doing reasonably well. We will continue to follow. Chest x-ray is normal. Labs are reviewed. White count 12.8, hemoglobin 11.1. Electrolytes look normal. Time with Patient: Greater than 30
[2018-06-10] MEDS ORDERED: ALPRAZolam 0.25 MG TAB PO PRN (14:05)
[2018-06-10] MEDS ORDERED: MAGNESIUM HYDROXIDE 2,400 MG/10 ML CUP PO PRN (14:05)
[2018-06-10] MEDS ORDERED: ONDANSETRON 4 MG/2 ML VIAL IVP PRN (14:05)
[2018-06-10] MEDS ORDERED: LACTULOSE 20 GM/30 ML CUP PO PRN (14:05)
[2018-06-10] MEDS ORDERED: MELATONIN 3 MG TABLET PO PRN (14:05)
[2018-06-10] MEDS ORDERED: NON-FORMULARY DRUG (Omeprazole [Omeprazole] 40 MG) PO SCH (14:15)
--- NOTE | 2018-06-10 15:14 | HP ---
HISTORY AND PHYSICAL DATE OF ADMISSION: 06/09/2018 DATE OF SERVICE: June 10, 2018 PRESENTING COMPLAINT: Short of breath. Wheezing. HISTORY OF PRESENTING COMPLAINT: This is a pleasant 83-year-old patient of Dr. Farias. Follows with mobile application engineer Dr. Malone. The patient's chronic stable medical conditions include atrial fibrillation congestive heart failure, diabetes, GERD, hyperlipidemia, hypertension, osteoarthritis, diabetes type 2, arthritis, osteoporosis, chronic anemia. PAST SURGICAL HISTORY: Appendectomy, breast surgery, 2011 cardiac cath that was normal, benign lumpectomy, bilateral cataract removed, permanent pacemaker, had a VATS lung procedure in 2010. PSYCH HISTORY: Anxiety and depression. SOCIAL HISTORY: [facility] Uses a cane outside the house. No smoking. No alcohol. FAMILY HISTORY: Breast cancer. HOME MEDICATIONS: 1. Verapamil 80 mg p.o. b.i.d. 2. Potassium 10 mEq p.o. daily. 3. Omeprazole 40 mg p.o. daily. 4. Corgard 40 mg p.o. daily. 5. Xopenex b.i.d. p.r.n. 6. Amaryl 2 mg b.i.d. 7. Lasix 40 mg p.o. daily. 8. Advair 500/50 1 puff b.i.d. 9. Vitamin B12 1000 mcg p.o. daily. 10.Vitamin D3 5000 units p.o. daily. 11.Eliquis 5 mg p.o. b.i.d. 12.Cordarone 100 mg p.o. daily. 13.ProAir 2 puffs q.6h p.r.n. 14.Tylenol 8 600 mg b.i.d. ALLERGIES: TO DILTIAZEM, MORPHINE, MORPHINE. PRESENTING COMPLAINT: Shortness of breath. HISTORY OF PRESENTING COMPLAINT: This is a very pleasant 83 -year-old patient who follows with Dr. Farias and Dr. Malone. The patient presents with one month of worsening shortness of breath, cough, did go and see her family doctor, was prescribed steroids and antibiotics. Got better for about a week, then symptoms again relapsed. Then she went down and saw Dr. Vogt in the office. Again, was given steroids and antibiotics. She did feel for a better and again symptoms became worse. The patient presents now with worsening cough, short of breath, wheezing. No fever, no chills, bringing up some sputum. Appetite is fair. Bowel sounds are good. A bit tired and run down. Admitted to the ER. REVIEW OF SYSTEMS: CONSTITUTIONAL: Tired. HEENT none. RESPIRATORY as above. CARDIOVASCULAR none. GASTROINTESTINAL none. GENITOURINARY none. MUSCULOSKELETAL: Arthritic pain in joints. DERMATOLOGICAL, HEMATOLOGIC, LYMPHATIC: none. PSYCHIATRY a bit anxious. NEUROLOGICAL none. INVESTIGATIONS: White count 12.8, hemoglobin 11.1, potassium 3.9, BUN 26, creatinine 1.0. PHYSICAL EXAMINATION: VITAL SIGNS: Vital signs on presentation, temperature 99.4, pulse 72, respiratory 18, blood pressure 160/76, pulse ox 97% on room air. GENERAL APPEARANCE: Average built, sitting up, tired, slightly short of breath. EYES: Pupils equal. Conjunctivae normal. HEENT: External appearance of nose and ears normal. Oral cavity normal. NECK JVD not raised. Mass not palpable. RESPIRATORY: Effort increased. LUNGS decreased breath sounds. Prolonged expiration and wheezing. Some basal fine crackles. CARDIOVASCULAR: 1st and 2nd sounds normal. No edema. ABDOMEN: Soft, nontender. Liver and spleen not palpable. LYMPHATIC: No lymph nodes palpable in the neck and axilla. PSYCHIATRY: Alert and oriented times three. Mood and affect slightly anxious. NEUROLOGICAL: Pupils equal. Cranial nerves grossly intact. Power and sensation grossly intact. MUSCULOSKELETAL: Evidence of osteoarthritis especially in the hands. INVESTIGATIONS: White count 12.8, hemoglobin 10.1, potassium 3.9, BUN 26, creatinine 1.00. EKG tracing personally reviewed by me shows flipped T-waves in the inferolateral leads. Chest x- ray film, personally reviewed by me shows some cardiomegaly and some venous prominence. Fluid in the fissure. ProBNP is 3260. ASSESSMENT: 1. Acute congestive heart failure exacerbation from diastolic dysfunction. Ejection fraction 50-55 percent from echocardiogram in September of this year. 2. Acute moderate asthma exacerbation due to acute tracheobronchitis, having failed outpatient treatment. 3. Diabetes mellitus type 2 on oral hypoglycemic. 4. Gastroesophageal reflux disease. 5. Hyperlipidemia. 6. Essential hypertension. 7. Primary osteoarthritis multiple joints. 8. Paroxysmal atrial fibrillation for which patient is on Eliquis. PLAN: Patient is started on nebulized bronchodilators, IV steroids, Augmentin. We will also put the patient on IV Lasix 40 q.8. repeat a BNP in the morning. We will also consult Cardiology. Care was discussed with the patient and family at the bedside. Questions were answered. Copy to Dr. Farias. CAMPOS / ARNOLDO: [id number] /
[2018-06-10] MEDS: FUROSEMIDE 10 MG/ML 10 ML VIAL IV SCH ×3 (16:02→23:00)
[2018-06-10 17:08] LABS: Glucose,Whole Blood 197 mg/dL (75-99)
[2018-06-10] MEDS: methylPREDNISolone SOD SUCCI 125 MG/2 ML VIAL IV SCH ×2 (17:52→23:00)
[2018-06-10] MEDS: BUDESONIDE 1 MG/2 ML NEBU INHALATION SCH (19:17)
[2018-06-10] MEDS: FORMOTEROL FUMARATE 20 MCG/2 ML NEBU INHALATION SCH (19:17)
[2018-06-10 21:08] LABS: Glucose,Whole Blood 159 mg/dL (75-99)
[2018-06-10] MEDS: AMOXIC-POT CLAV 875-125MG 1 EACH TAB PO SCH (22:15)
[2018-06-10] MEDS: VERAPAMIL 80 MG TAB PO SCH (22:15)
[2018-06-11] MEDS: IPRATROPIUM-ALBUTEROL 3 ML NEB INHALATION SCH ×4 (00:16→12:20)
[2018-06-11] MEDS: methylPREDNISolone SOD SUCCI 125 MG/2 ML VIAL IV SCH ×2 (05:44→12:16)
[2018-06-11 07:30] LABS: Glucose,Whole Blood 170 mg/dL (75-99)
[2018-06-11] MEDS: BUDESONIDE 1 MG/2 ML NEBU INHALATION SCH (07:36)
[2018-06-11] MEDS: FORMOTEROL FUMARATE 20 MCG/2 ML NEBU INHALATION SCH (07:36)
--- NOTE | 2018-06-11 08:34 | CONS ---
CONSULTATION Mrs. Jane is an 83-year-old female with a history of paroxysmal atrial fibrillation, history of chronic obstructive lung disease, permanent pacemaker implantation, who presented to the hospital with symptoms of progressive dyspnea, cough, productive of dark sputum. She has not had any chest discomfort. No dizziness. No palpitation. She has no significant peripheral edema. She has no clear PND nor orthopnea. She has been followed in the past by Dr. Gibson and has underwent permanent pacemaker implantation earlier this year because of paroxysmal atrial fibrillation and sick sinus syndrome. She has a prior history of pneumonia and parapneumonic effusion requiring VATS. She has underwent cardiac catheterization in the past and according to her, she had no significant obstructive coronary artery disease. Her coronary risk factors are positive for history of hypertension, diabetes, she is a nonsmoker. MEDICATIONS: At home include verapamil 80 mg twice a day, potassium 10 mg daily, omeprazole 40 mg daily, Corgard 40 mg daily, Aleve, albuterol, Amaryl, Lasix 40 mg daily, fluticasone, vitamin B12, Eliquis 5 mg twice a day, amiodarone 100 mg daily, albuterol, and Tylenol. REVIEW OF SYSTEMS: RESPIRATORY SYSTEM: She has history of chronic obstructive lung disease with prior pneumonia. She has been followed by Dr. Malone on a regular basis. GI SYSTEM: She has no recent GI bleed. No peptic ulcer disease. SYSTEM: No dysuria or hematuria. NERVOUS SYSTEM: No history of stroke or seizure. Her left ventricular systolic function by echocardiography was preserved in the past. She has underwent an echocardiogram in September of this year that showed a preserved left ventricular size and systolic function. PHYSICAL EXAMINATION: Blood pressure 122/70 with a heart rate in the 60s. HEAD: Normocephalic, eyes sclerae nonicteric. NECK: Good upstroke, no bruit. Lungs with decreased air exchange with scattered rhonchi. No wheezes. HEART: Regular rate and rhythm, S1, S2. No S3. No rub appreciated. ABDOMEN: Soft, nontender, positive bowel sounds, no organomegaly. EXTREMITIES: No edema, intact pulses. LAB DATA: EKG revealed sinus mechanism, rate of 67, borderline first-degree AV block, left ventricular hypertrophy, nonspecific ST-T wave changes. Lab data revealed a hemoglobin of 11.1, white blood cell 12.8, BUN and creatinine 26 and 1.0. Troponin 0.017. NT proBNP of 3,260. Chest x-ray showed evidence of COPD. IMPRESSION: 1. Symptoms of worsening dyspnea with evidence of tracheobronchitis in a patient with known history of chronic obstructive lung disease. 2. History of paroxysmal fibrillation, remains in sinus mechanism, anticoagulated status post permanent pacemaker implantation. 3. Prior history of congestive heart failure on the basis of diastolic dysfunction. 4. History off hypertension. 5. Diabetes mellitus. RECOMMENDATION: From the cardiac standpoint, I do not believe that we are dealing with a seth primary congestive heart failure. I will continue on her present therapy. Increase her level of activity and if she remains stable, I would expect she should be able to be discharged home once agreeable with the Pulmonary Service and follow up with Dr. Gibson as an outpatient. Thank you for this consult. Will follow with you. CAMPOS / ARNOLDO: [id number] /
[2018-06-11] MEDS: APIXABAN 5 MG TAB PO SCH (08:55)
[2018-06-11] MEDS: VERAPAMIL 80 MG TAB PO SCH (08:55)
[2018-06-11] MEDS: CYANOCOBALAMIN 500 MCG TAB PO SCH (08:55)
[2018-06-11] MEDS: AMOXIC-POT CLAV 875-125MG 1 EACH TAB PO SCH (08:55)
[2018-06-11] MEDS: CHOLECALCIFEROL 1,000 UNIT TAB PO SCH (08:55)
[2018-06-11] MEDS: CALCIUM CARBONATE 500 MG CHEWABLE PO SCH (08:55)
[2018-06-11] MEDS: POTASSIUM CHLORIDE ER 10 MEQ TAB.ER.PRT PO SCH (08:56)
[2018-06-11] MEDS: NADOLOL 20 MG TAB PO SCH (08:56)
[2018-06-11] MEDS: PANTOPRAZOLE 40 MG TABLET PO SCH (08:56)
[2018-06-11] MEDS: GLIMEPIRIDE 2 MG TAB PO SCH (08:56)
[2018-06-11] MEDS: FUROSEMIDE 10 MG/ML 10 ML VIAL IV SCH (08:59)
[2018-06-11] MEDS: INSULIN ASPART 100 UNIT/ML 1 ML 10 ML VIAL SQ SCH ×2 (08:59→12:17)
[2018-06-11] MEDS ORDERED: AMIODARONE 100 MG TAB PO SCH (09:00)
[2018-06-11] MEDS ORDERED: FUROSEMIDE 40 MG TAB PO SCH (09:00)
[2018-06-11] MEDS: ACETAMINOPHEN TAB 325 MG TAB PO SCH ×2 (09:07→12:20)
[2018-06-11 09:59] LABS: Hemoglobin A1C 6.2 % (4.0-6.0)
[2018-06-11 10:57] LABS: Calcium 8.7 mg/dL (8.4-10.2); Potassium 3.8 mmol/L (3.5-5.1)
[2018-06-11 11:40] LABS: Glucose,Whole Blood 181 mg/dL (75-99)
--- NOTE | 2018-06-11 13:29 | ECHOF ---
Referral Reason:chf MEASUREMENTS -------- HEIGHT: 160.0 cm WEIGHT: 66.7 kg BP: 122/75 RVIDd: 3.6 cm (< 3.3) IVSd: 1.1 cm (0.6 - 1.1) LVIDd: 5.9 cm (3.9 - 5.3) LVPWd: 1.2 cm (0.6 - 1.1) IVSs: 1.7 cm LVIDs: 3.8 cm LVPWs: 1.8 cm LA Diam: 4.1 cm (2.7 - 3.8) LAESV Index (A-L): 49.56 ml/m Ao Diam: 3.2 cm (2.0 - 3.7) AV Cusp: 2.0 cm (1.5 - 2.6) MV EXCURSION: 11.800 mm (> 18.000) MV EF SLOPE: 26 mm/s (70 - 150) EPSS: 0.5 cm MV E Cosme: 1.33 m/s MV DecT: 179 ms MV A Cosme: 0.67 m/s MV E/A Ratio: 1.98 RAP: 5.00 mmHg RVSP: 57.49 mmHg FINDINGS -------- Sinus rhythm. This was a technically adequate study. The left ventricle is mildly dilated. There is borderline concentric left ventricular hypertrophy. Overall left ventricular systolic function is normal with, an EF between 55 - 60 %. The right ventricle is mildly enlarged. The right ventricular systolic function is mildly impaired. LA is severely dilated >40 ml/m2 The right atrium is normal in size. The aortic valve is trileaflet, and appears structurally normal. No aortic stenosis or regurgitation. Moderate mitral annular calcification present. Moderate mitral regurgitation is present. Moderate tricuspid regurgitation present. There is moderate pulmonary hypertension. The right maritza tricular systolic pressure, as measured by Doppler, is 57.49mmHg. Trace/mild (physiologic) pulmonic regurgitation. The aortic root size is normal. Normal inferior vena cava with normal inspiratory collapse consistent with estimated right atrial pre ssure of 5 mmHg. The inferior vena cava is mildly dilated. There is no pericardial effusion. CONCLUSIONS -------- 1. Sinus rhythm. 2. This was a technically adequate study. 3. The left ventricle is mildly dilated. 4. There is borderline concentric left ventricular hypertrophy. 5. Overall left ventricular systolic function is normal with, an EF between 55 - 60 %. 6. The right ventricle is mildly enlarged. 7. The right ventricular systolic function is mildly impaired. 8. LA is severely dilated >40 ml/m2 9. The aortic valve is trileaflet, and appears structurally normal. No aortic stenosis or regurgitati on. 10. Moderate mitral annular calcification present. 11. Moderate mitral regurgitation is present. 12. Moderate tricuspid regurgitation present. 13. There is moderate pulmonary hypertension. 14. Trace/mild (physiologic) pulmonic regurgitation. 15. The aortic root size is normal. 16. Normal inferior vena cava with normal inspiratory collapse consistent with estimated right atrial pressure of 5 mmHg. 17. The inferior vena cava is mildly dilated. 18. There is no pericardial effusion. [employer] LAW CLERK: Chely Capone RDCS
[2018-06-11 14:30] VITALS: BP 104/63; PULSE 60; RESP 18; TEMP 97.6
--- NOTE | 2018-06-11 18:32 | P.PN ---
Subjective Progress Note Date: 06/11/18 Principal diagnosis: COPD exacerbation, complicated with purulent tracheobronchitis, without seth pneumonia. Pulmonary Consult dated 06/10/2018 83-year-old female well-known to me. She does have a history of underlying COPD. She comes into the hospital with a couple weeks worth of increasing shortness of breath chest tightness wheezing cough chest congestion and phlegm production. She's my partners early this past week. She was treated with steroids and antibiotics and did not improve. In addition, she saw her primary doctor, Dr. Farias, we'll also give her steroids and antibiotics. That was before see my partner.Seem to practitioner isn't receiving 2 rounds of steroids and antibiotics, the patient was not much better and she came into the emergency room to be evaluated. She was seen by one of the ER doctors who had no history in his note from last night. Her complaints include shortness of breath chest tightness wheezing cough chest congestion shortness of breath and phlegm production. The patient has a history of atrial fibrillation COPD/ asthma angina pectoris heart failure diabetes GERD hyperlipidemia hypertension previous myocardial infarction and pneumonia with parapneumonic effusion which required chest tube drainage. She also required a VATS decortication of the left lung secondary to pneumonia in the left parapneumonic effusion. On 06/11/2018 patient seen in follow-up on medical surgical floor. Patient is doing well, improving, less short of breath. Vital signs are stable, cultures are negative. Today's labs were reviewed. BMP showed sodium of 138, potassium is 3.8, chloride is 100, BUN of 26, creatinine of 0.96. ProBNP was elevated at 6260. Patient clinically does not seem to be fluid overloaded, she was seen by cardiology and cleared for discharge. Objective - Vital Signs Vital signs: Vital Signs Temp 97.6 F 06/11/18 14:26 Pulse 60 06/11/18 14:26 Resp 18 06/11/18 14:26 BP 104/63 06/11/18 14:26 Pulse Ox 95 06/11/18 14:26 Intake & Output 06/10/18 06/11/18 06/11/18 18:59 06:59 18:59 Intake Total 600 200 400 Output Total 1200 1200 700 Balance -600 -1000 -300 Weight 66.8 kg Intake: Oral 600 200 400 Output: Urine 1200 1200 700 Other: Voiding Method Toilet Toilet - Exam No acute distress, oriented 3. No audible wheezing, no use of accessory muscles, no nasal flaring. HEENT examination is grossly unremarkable. Mucous membranes are moist. No oral lesions. Neck supple. Full range of motion. No adenopathy thyromegaly or neck vein distention. Cardiovascular examination reveals irregular rhythm and rate. S1-S2 normal. No S3 or S4. No discernible murmur noted. Heart rate 89 bpm. Lungs reveal diminished breath sounds throughout. This some expiratory rhonchi and wheezes. This prolongation on forced maneuver. Adventitious lung sounds are more prominent on forced maneuver. Breath sounds equal bilaterally. No crackles appreciated. Abdomen soft bowel sounds are heard. No masses or tenderness. Extremities are intact. No cyanosis clubbing or edema. Skin is without rash or lesion. Neurologic examination is brief but nonfocal. - Labs CBC & Chem 7: 06/09/18 20:41 06/11/18 10:03 Labs: Abnormal Lab Results - Last 24 Hours (Table) 06/09/18 06/10/18 06/11/18 Range/Units 20:41 20:59 07:22 BUN (7-17) mg/dL Glucose (74-99) mg/dL POC Glucose (mg/dL) 159 H 170 H (75-99) mg/dL Hemoglobin A1c 6.2 H (4.0-6.0) % 06/11/18 06/11/18 Range/Units 10:03 11:32 BUN 26 H (7-17) mg/dL Glucose 331 H (74-99) mg/dL POC Glucose (mg/dL) 181 H (75-99) mg/dL Hemoglobin A1c (4.0-6.0) % Microbiology - Last 24 Hours (Table) 06/11/18 05:50 Gram Stain - Preliminary Sputum 06/09/18 20:41 Blood Culture - Preliminary Blood No Growth after 24 hours Assessment and Plan Plan: Assessment: COPD exacerbation complicated by purulent tracheobronchitis, without seth pneumonia History of chronic atrial fibrillation History of angina pectoris History of CHF Diabetes mellitus by history GERD by history History of hyperlipidemia History of hypertension Previous history of myocardial infarction History of DJD Previous episode of severe pneumonia with parapneumonic effusion, status post VATS decortication of the left lung Status post heart catheterization and pacemaker insertion. History of chronic anemia History of osteoporosis Plan: Patient is doing well, no acute complaints, breathing easier, lung sounds are essentially clear to auscultation. No worsening shortness of breath, chest pain. Patient is cleared for discharge home today, follow up with Dr. Malone in the office in one week. I performed a history & physical examination of the patient and discussed their management with my nurse practitioner, Tory Aquino. I reviewed the nurse practitioner's note and agree with the documented findings and plan of care. Lung sounds are positive for clear lung sounds. The findings and the impression was discussed with the patient. I attest to the documentation by the nurse practitioner. Time with Patient: Less than 30
--- NOTE | 2018-06-12 00:21 | DS ---
DISCHARGE SUMMARY DATE OF ADMISSION: June 09, 2018. DATE OF DISCHARGE: 06/11/2018. FINAL DIAGNOSES: 1. Acute congestive heart failure exacerbation from diastolic dysfunction. Ejection fraction 50-55 percent. 2. Moderate mitral and tricuspid regurgitation, nonrheumatic. 3. Acute moderate asthma exacerbation due to acute tracheobronchitis having failed outpatient treatment. 4. Diabetes mellitus type 2 on oral hypoglycemic. 5. Gastroesophageal reflux disease. 6. Hyperlipidemia. 7. Essential hypertension. 8. Primary osteoarthritis multiple joints. 9. Paroxysmal atrial fibrillation for which patient is chronically on Eliquis. 10.Secondary pulmonary hypertension due to chronic obstructive pulmonary disease and congestive heart failure. ASSESSMENT: This patient has failed outpatient treatment for COPD exacerbation, acute tracheobronchitis, presented with shortness of breath, also found to be in congestive heart failure. Chest x-ray showed pulmonary edema and proBNP was 6260. The patient responded well with antibiotics, bronchodilators, IV Lasix and doing much better by the time of discharge. PHYSICAL EXAMINATION: Temperature 97.6, pulse 50, respiratory 18, blood pressure 104/63, pulse ox 95 percent. LUNGS improved air entry. CARDIOVASCULAR: First and second sounds normal. Creatinine 0.96. 2D echo showed EF of 55% to 60%. Moderate mitral regurgitation, moderate tricuspid regurgitation and moderate pulmonary hypertension. CONSULTATION: Dr. Malone from Pulmonary, Dr. Valenzuela from Cardiology. Care was discussed with the patient. Questions were answered. Discharge planning more than 35 minutes. DISCHARGE MEDICATIONS: 1. Eliquis 5 mg p.o. b.i.d. 2. Potassium 10 mEq a day. 3. Advair 500/5 1 puff b.i.d. 4. Amaryl 2 mg p.o. b.i.d. 5. ProAir 2 puffs q.6h p.r.n. 6. Lasix 40 mg a day. 7. Nadolol 40 mg a day. 8. Vitamin D3 5000 units p.o. daily. 9. Tylenol 650 mg p.o. b.i.d. 10.Thiamine 1000 mcg p.o. daily. 11.Cordarone 100 mg p.o. daily. 12.Xopenex 1.25 mg nebulizer b.i.d. p.r.n. 13.Omeprazole 40 mg a day. 14.Isoptin 80 mg b.i.d. 15.Augmentin 875 1 tab q.12h 6 tablets. 16.Prednisone rapid taper. Follow with Dr. Farias in 1 week. Follow up with Dr. Malone 06/13/2018. Follow up with Dr. Milka Gibson on June 26, 2018. Copy to Dr. Farias. MMODL / IJN: [id number] /
--- NOTE | 2018-06-18 08:08 | CDI ---
Last Revision, August 2017 Documentation Clarification Form Date: 06/18/18 From: Aleida Aristides Susana Suárez, [employer] Hours-8:30 am & 5 pm Elaine Admit Date: 06/11/2018 7:52:00 AM Patient Name: Vashti Jane Visit Number: [id number] Discharge Date: 06/11/18 ATTENTION: The Clinical Documentation Specialists (CDI) and [facility] Coding Staff appreciate your assistance in clarifying documentation. Please respond to the clarification below the line at the bottom and electronically sign. The CDI & [facility] Coding staff will review the response and follow-up if needed. Please note: Queries are made part of the Legal Health Record. If you have any questions, please contact the author of this message via ITS. Jeffrey Ryan MD The patient was placed in observation on 06/10 and then changed to inpatient on 06/11. She presented to ER due to SOB and having failed OP treatment of AECOPD and AE asthma. She w IV Solu-Medrol and breathing treatments. On 06/11 the date of admission she was given IV Lasix 60 mg Q8 HR. BNP was 3260 on 06/09 and on 06/11 was 6260. Initial CXR: heart is enlarged and COPD, No repeat CXR. The patients principal diagnosis has not been clearly identified and requires clarification. In your professional opinion, can you please clarify which diagnosis, after study, accounted for the patients presenting symptoms and was the reason chiefly responsible for the inpatient admission? COPD exacerbation, acute tracheobronchitis Acute CHF exacerbation from diastolic dysfunction Other Unable to determine Please continue to document in your progress notes and discharge summary in order to capture severity of illness and risk of mortality. Include clinical findings that support your diagnosis. MTDD
--- NOTE | 2018-06-18 08:17 | CDI ---
Last Revision, August 2017 Documentation Clarification Form Date: 06/18/18 From: Aleida Aristides Susana Suárez, Director Of Informatics Hours-8:30 am & 5 pm M-F Admit Date: 06/11/2018 7:52:00 AM Patient Name: Vashti Jane Visit Number: [id number] Discharge Date: 06/11/18 ATTENTION: The Clinical Documentation Specialists (CDI) and [facility] Coding Staff appreciate your assistance in clarifying documentation. Please respond to the clarification below the line at the bottom and electronically sign. The CDI & [facility] Coding staff will review the response and follow-up if needed. Please note: Queries are made part of the Legal Health Record. If you have any questions, please contact the author of this message via ITS. Jeffrey Ryan MD Conflicting documentation has been found in the medical record. Per your H&P and DS state "paroxysmal atrial fibrillation". Per Dr Malone's consult and Dr Irene's PN state "chronic atrial fibrillation". History/Risk Factors: S/P pacemaker EKG: revealed sinus mechanism, rate of 67, borderline 1st degree AV block, left ventricular hypertrophy, nonspecific ST-T wave changes Treatment: Eliquis, Amiodarone In your opinion what is the most clinically appropriate diagnosis for this patient? Paroxysmal atrial fibrillation Chronic atrial fibrillation Other explanation of clinical findings Unable to determine (no explanation for clinical findings) Please continue to document in your progress notes and discharge summary in order to capture severity of illness and risk of mortality. Include clinical findings that support your diagnosis. MTDD
== END 2018-06-11 16:28 | disposition home or self-care (01) | DRG 292 ==
LOC: EC 19:56 → 4MS4W 22:48 → OBSVTOIN 06-11 07:52
PROVIDERS: ADMIT Hospitalist; ATTEND Hospitalist
DX: I11.0 Hypertensive heart disease with heart failure (principal); J44.0 Chronic obstructive pulmonary disease with (acute) lower respiratory infection; J45.901 Unspecified asthma with (acute) exacerbation; J44.1 Chronic obstructive pulmonary disease with (acute) exacerbation; I50.33 Acute on chronic diastolic (congestive) heart failure; I27.22 Pulmonary hypertension due to left heart disease; I27.23 Pulmonary hypertension due to lung diseases and hypoxia; I36.1 Nonrheumatic tricuspid (valve) insufficiency; I48.0 Paroxysmal atrial fibrillation; D64.9 Anemia, unspecified; I34.0 Nonrheumatic mitral (valve) insufficiency; J20.9 Acute bronchitis, unspecified; E11.9 Type 2 diabetes mellitus without complications; K21.9 Gastro-esophageal reflux disease without esophagitis; E78.5 Hyperlipidemia, unspecified; I25.2 Old myocardial infarction; M19.042 Primary osteoarthritis, left hand; M19.041 Primary osteoarthritis, right hand; M81.0 Age-related osteoporosis without current pathological fracture; Z79.01 Long term (current) use of anticoagulants; Z79.84 Long term (current) use of oral hypoglycemic drugs; Z79.51 Long term (current) use of inhaled steroids; Z79.899 Other long term (current) drug therapy; Z87.01 Personal history of pneumonia (recurrent); Z91.81 History of falling; Z86.19 Personal history of other infectious and parasitic diseases; Z90.49 Acquired absence of other specified parts of digestive tract; Z95.0 Presence of cardiac pacemaker; Z86.59 Personal history of other mental and behavioral disorders; Z98.42 Cataract extraction status, left eye; Z98.41 Cataract extraction status, right eye; Z98.51 Tubal ligation status; Z88.5 Allergy status to narcotic agent; Z88.8 Allergy status to other drugs, medicaments and biological substances; Z80.3 Family history of malignant neoplasm of breast; Z81.8 Family history of other mental and behavioral disorders
CPT/HCPCS: 36415; 71046; 80048; 80053; 82550; 82553; 83036; 83735; 83880; 84484; 85025; 85610; 85730; 87040; 87070; 87205; 93005; 93306; 94640; 96361; 96374; 99285

== ENCOUNTER → 2018-07-05 | Outpatient (CLI) | payer MEDICARE ==
--- NOTE | 2018-07-05 12:27 | CT ---
EXAMINATION TYPE: CT angio chest DATE OF EXAM: 07/05/2018 COMPARISON: May 05, 2014 HISTORY: Hx pacemaker. Patient presents w/ SOB x4 weeks. CT DLP: 408 mGycm CONTRAST: CT chest with contrast and 3D reconstruction with MIP imaging is performed with IV Contrast, patient injected with 80 mL of Isovue 370. Contrast-enhanced CT of the chest was performed through the course of the pulmonary arteries with romulo g and mediastinal window settings submitted. 3D reconstruction with MIP imaging was also performed. PULMONARY ARTERIES: The pulmonary arteries and their major tributaries are patent. I do not see denzel dence for sizable filling defect to suggest pulmonary embolic process. LUNGS: Chronic post inflammatory changes within the lingula and right middle lobe as well as the lung bases. Scattered groundglass infiltrates may reflect acute inflammatory process. Correlate clinicall y. Calcified granuloma right lower lobe. No focal consolidation or suspicious mass. MEDIASTINUM: Thoracic aorta is of normal caliber,however, evaluation is limited given timing of the contrast bolus. If there is concern for thoracic aortic pathology consider KIKO. Correlate clinicall y . The heart is enlarged. No evidence for mediastinal mass. No mediastinal lymph nodes greater asia n 1cm. HILAR STRUCTURES: No evidence for mass. No hilar lymph nodes greater than 1 cm. UPPER ABDOMEN: No significant abnormality is seen. IMPRESSION: 1. No evidence for Pulmonary embolism at this time. 2. Scattered groundglass infiltrates may reflect acute inflammatory process or consolidation. Correla te clinically.
== END ==
LOC: RADCTMAIN 10:39
PROVIDERS: ATTEND Internal Medicine Critical Care Medicine
DX: R91.8 Other nonspecific abnormal finding of lung field (principal); Z91.040 Latex allergy status; Z88.5 Allergy status to narcotic agent
CPT/HCPCS: 82565; 84520; 71275; 36415; Q9967

== ENCOUNTER 2019-01-14 19:32 | Inpatient (IN) | payer MEDICARE ==
[2019-01-14] MEDS ORDERED: ONDANSETRON 4 MG/2 ML VIAL IVP STA (20:18)
[2019-01-14] MEDS ORDERED: OCTREOTIDE 100 MCG/ML INJ IVP STA (20:18)
[2019-01-14] MEDS ORDERED: OCTREOTIDE 500 MCG in SODIUM CHLORIDE 0.9% 250 ML IV STA (20:18)
[2019-01-14] MEDS ORDERED: SODIUM CHLORIDE 0.9% 1,000 ML IV STA ×2 (20:18)
[2019-01-14] MEDS ORDERED: PANTOPRAZOLE 40 MG/10 ML VIAL IVP STA (20:18)
[2019-01-14] MEDS ORDERED: SODIUM CHLORIDE 0.9% 500 ML 500 ML IV STA (20:38)
[2019-01-14] MEDS ORDERED: methylPREDNISolone SOD SUCCI 125 MG/2 ML VIAL IV STA (20:38)
[2019-01-14] MEDS ORDERED: IPRATROPIUM-ALBUTEROL 3 ML NEB INHALATION STA ×2 (20:38→22:31)
[2019-01-14 20:48] LABS: Anisocytosis Slight; Basophils # (A) 0.1 k/uL (0-0.2); Basophils % (A) 1 %; Eosinophils # (A) 0.2 k/uL (0-0.7); Eosinophils % (A) 1 %; HCT 34.5 % (34.0-46.0); HGB 11.3 gm/dL (11.4-16.0); Lymphocytes % (A) 7 %; MCH 28.6 pg (25.0-35.0); MCHC 32.9 g/dL (31.0-37.0); MCV 87.1 fL (80.0-100.0); Mean Platelet Volume 7.8; Monocytes # (A) 1.2 k/uL (0-1.0); Monocytes % (A) 9 %; Neutrophils # (A) 11.4 k/uL (1.3-7.7); Neutrophils % (A) 81 %; Platelet Count 336 k/uL (150-450); RBC 3.97 m/uL (3.80-5.40); RDW 16.4 % (11.5-15.5); WBC 14.1 k/uL (3.8-10.6)
[2019-01-14 20:55] LABS: Calcium 9.6 mg/dL (8.4-10.2); Magnesium 1.8 mg/dL (1.6-2.3); Total Protein 6.7 g/dL (6.3-8.2)
[2019-01-14 21:16] LABS: Partial Thromboplastin Time 24.3 sec (22.0-30.0); Prothrombin Time 10.3 sec (9.0-12.0)
--- NOTE | 2019-01-14 21:45 | XR ---
EXAMINATION TYPE: XR chest 2V DATE OF EXAM: 01/14/2019 COMPARISON: 10/15/2018 HISTORY: Short of breath TECHNIQUE: Frontal and lateral views of the chest are obtained. FINDINGS: Heart is enlarged. There is no heart failure. Lungs are clear of consolidation. There is m inimal scarring on the right minor fissure. There is a left axillary pacemaker. There is slight blunt ing of left costophrenic angle consistent with pleural diaphragmatic scarring. IMPRESSION: Cardiomegaly. No acute lung disease. Pulmonary fibrotic changes. Stable chest compared t o last exam.
[2019-01-14] MEDS ORDERED: LEVOFLOXACIN 750MG-D5W PMX 750 MG in DEXTROSE/WATER 1 150ML.BAG IVPB STA (21:55)
--- NOTE | 2019-01-15 00:18 | ED ---
SOB HPI - General Chief Complaint: Shortness of Breath Stated Complaint: GORDON Time Seen by Provider: 01/14/19 20:05 Source: patient, EMS Mode of arrival: ambulatory Limitations: no limitations - History of Present Illness Initial Comments: This 83-year-old white female presents with a complaint of shortness of breath. She states that it became fairly severe tonight that she has had it for over the last 3 days. She has had a cough with yellowish production. She does have a long-standing history of COPD. She has had multiple previous similar incidents. She denies any chest pain. She denies any actual fever. She has felt extremely weak to the point that she cannot walk on her own. She does present via EMS and apparently was tripoding upon their arrival and received a DuoNeb breathing treatment with moderate to significant improvement. No other complaints or modifying factors. - Related Data Home Medications Medication Instructions Recorded Confirmed Apixaban [Eliquis] 5 mg PO BID 11/24/14 01/14/19 Potassium Chloride [Klor-Con 10] 10 meq PO DAILY 11/26/14 01/14/19 Fluticasone/Salmeterol [Advair 1 puff INHALATION RT-BID 12/14/14 01/14/19 500-50 Diskus] Glimepiride [Amaryl] 2 mg PO BID 06/07/15 01/14/19 Albuterol Sulfate [Proair Hfa] 2 puff INHALATION RT-Q6H PRN 12/13/15 01/14/19 Furosemide [Lasix] 40 mg PO DAILY 05/20/16 01/14/19 Nadolol [Corgard] 40 mg PO DAILY 05/20/16 01/14/19 Cholecalciferol [Vitamin D3 (25 5,000 unit PO DAILY 09/13/16 01/14/19 Mcg = 1000 Iu)] Acetaminophen [Tylenol 8 Hour] 650 mg PO BID 08/14/17 01/14/19 Cyanocobalamin (Vitamin B-12) 1,000 mcg PO DAILY 09/24/17 01/14/19 [Vitamin B-12] Amiodarone [Cordarone] 100 mg PO DAILY 11/27/17 01/14/19 Levalbuterol Nebulized [Xopenex 1.25 mg INHALATION RT-BID PRN 06/10/18 01/14/19 Nebulized] Omeprazole 40 mg PO DAILY 06/10/18 01/14/19 Verapamil [Isoptin] 80 mg PO BID 06/10/18 01/14/19 Allergies Allergy/AdvReac Type Severity Reaction Status Date / Time diltiazem AdvReac Itching Verified 01/14/19 20:03 morphine AdvReac Confusion Verified 01/14/19 20:03 Review of Systems ROS Statement: Those systems with pertinent positive or pertinent negative responses have been documented in the HPI. ROS Other: All systems not noted in ROS Statement are negative. Past Medical History Past Medical History: Atrial Fibrillation, Asthma, Chest Pain / Angina, Heart Failure, COPD, Diabetes Mellitus, GERD/Reflux, Hyperlipidemia, Hypertension, Myocardial Infarction (IN), Osteoarthritis (OA), Pneumonia Additional Past Medical History / Comment(s): Afib RVR, NIDDM type II, arthritis multiple joints, osteoporosis, chronic anemia, falls, 2013 shingelles Last Myocardial Infarction Date:: 07/16/11 History of Any Multi-Drug Resistant Organisms: None Reported Past Surgical History: Appendectomy, Breast Surgery, Heart Catheterization, Pacemaker, Tubal Ligation Additional Past Surgical History / Comment(s): 02/2011 cardiac cath-normal, benign lumpectomy bronchoscopy, EGD/colonoscopy, bilateral cataract removals, 2010 VATS L lung, falls. Past Anesthesia/Blood Transfusion Reactions: No Reported Reaction Additional Past Anesthesia/Blood Transfusion Reaction / Comment(s): Pt has received blood in past without reaction Type of Cardiac Device: Permanent Pacemaker Device Placement Date:: NOVEMBER 28 2017 Past Psychological History: Anxiety, Depression Smoking Status: Never smoker Past Alcohol Use History: None Reported Past Drug Use History: None Reported - Past Family History Sister(s) Family Medical History: Cancer Additional Family Medical History / Comment(s): breast CA Mother Family Medical History: No Reported History Additional Family Medical History / Comment(s): from car accident no other hx known Father Family Medical History: No Reported History Additional Family Medical History / Comment(s): committed suicide Daughter(s) Family Medical History: Cancer Additional Family Medical History / Comment(s): breast CA General Exam - General Exam Comments Initial Comments: GENERAL: The patient is well nourished and well hydrated. VITAL SIGNS: Heart rate, blood pressure, respiratory rate reviewed as recorded in nurse's notes. EYES: Pupils are round and reactive. Extraocular movements are intact. No conjunctival / lid redness or swelling. ENT: No external evidence of injury, swelling, or ecchymosis. Airway is patent. Throat is clear. NECK: Nontender. No swelling or evidence of injury. No subcutaneous emphysema. Trachea is midline. No thyroid mass. HEART: Regular rate and rhythm. Good peripheral pulses. LUNGS/CHEST: Wheezing noted bilaterally. No subcutaneous emphysema, or te nderness. ABDOMEN: Abdomen soft without tenderness. No palpable masses or organomegaly. No peritoneal signs. No abdominal wall swelling or ecchymosis. EXTREMITIES: No extremity tenderness. Normal muscle tone and function. No thoracolumbar tenderness. NEUROLOGIC: Sensation is grossly intact. Cranial nerve exam reveals face is symmetrical, tongue is midline, speech is clear. SKIN: No abrasions or ecchymosis is noted. No induration or masses noted. PSYCHIATRIC: Alert and oriented. Appropriate behavior and judgment. Limitations: no limitations Course Vital Signs 01/14/19 01/14/19 01/14/19 19:45 21:24 21:54 Temperature 99.2 F Pulse Rate 68 65 66 Respiratory 24 18 Rate Blood Pressure 128/54 114/83 O2 Sat by Pulse 94 L 95 Oximetry 01/14/19 01/14/19 01/14/19 22:00 23:00 23:06 Temperature Pulse Rate 71 70 69 Respiratory 20 20 Rate Blood Pressure 120/52 123/46 O2 Sat by Pulse 95 98 Oximetry 01/14/19 01/14/19 23:14 23:29 Temperature 99.8 F H Pulse Rate 68 Respiratory Rate Blood Pressure O2 Sat by Pulse Oximetry Medical Decision Making - Medical Decision Making The patient was seen and examined. All diagnostics were reviewed. The EKG shows a normal sinus rhythm at a rate of 67. There is some T-wave inversions in the lateral leads. There is no ST elevation identified. The ME intervals 200, QRS duration is 110, and the QTC intervals 481. The patient did receive an additional 2 DuoNeb breathing treatments in the emergency department. She also receives Solu-Medrol 125 mg intravenously. She received Levaquin 750 mg intravenously. The chest x-ray did not show any evidence of a pneumonia or acute processes. The laboratory did show a leukocytosis at 15,000. She is doing much better on recheck. It is felt as though she would require admission to the hospital. She is very weak and does have severe COPD. She is agreeable to this plan. The case is discussed with Dr. Fleming and he is agreeable to admission. - Lab Data Result diagrams: 01/14/19 19:37 01/14/19 19:37 Lab Results 01/14/19 01/14/19 01/14/19 Range/Units 19:37 19:37 19:37 WBC 14.1 H (3.8-10.6) k/uL RBC 3.97 (3.80-5.40) m/uL Hgb 11.3 L (11.4-16.0) gm/dL Hct 34.5 (34.0-46.0) % MCV 87.1 (80.0-100.0) fL MCH 28.6 (25.0-35.0) pg MCHC 32.9 (31.0-37.0) g/dL RDW 16.4 H (11.5-15.5) % Plt Count 336 (150-450) k/uL Neutrophils % 81 % Lymphocytes % 7 % Monocytes % 9 % Eosinophils % 1 % Basophils % 1 % Neutrophils # 11.4 H (1.3-7.7) k/uL Lymphocytes # 1.0 (1.0-4.8) k/uL Monocytes # 1.2 H (0-1.0) k/uL Eosinophils # 0.2 (0-0.7) k/uL Basophils # 0.1 (0-0.2) k/uL Anisocytosis Slight PT (9.0-12.0) sec INR (<1.2) APTT (22.0-30.0) sec Sodium 136 L (137-145) mmol/L Potassium 4.0 (3.5-5.1) mmol/L Chloride 99 (98-107) mmol/L Carbon Dioxide 26 (22-30) mmol/L Anion Gap 11 mmol/L BUN 23 H (7-17) mg/dL Creatinine 0.81 (0.52-1.04) mg/dL Est GFR (CKD-EPI)AfAm 78 (>60 ml/min/1.73 sqM) Est GFR (CKD-EPI)NonAf 68 (>60 ml/min/1.73 sqM) Glucose 148 H (74-99) mg/dL Plasma Lactic Acid Ricardo 1.6 (0.7-2.0) mmol/L Calcium 9.6 (8.4-10.2) mg/dL Magnesium 1.8 (1.6-2.3) mg/dL Total Bilirubin 1.0 (0.2-1.3) mg/dL AST 35 (14-36) U/L ALT 31 (9-52) U/L Alkaline Phosphatase 88 (38-126) U/L Troponin I (0.000-0.034) ng/mL Total Protein 6.7 (6.3-8.2) g/dL Albumin 4.0 (3.5-5.0) g/dL Influenza Type A RNA (Not Detectd) Influenza Type B (PCR) (Not Detectd) 01/14/19 01/14/19 01/14/19 Range/Units 19:37 19:37 22:50 WBC (3.8-10.6) k/uL RBC (3.80-5.40) m/uL Hgb (11.4-16.0) gm/dL Hct (34.0-46.0) % MCV (80.0-100.0) fL MCH (25.0-35.0) pg MCHC (31.0-37.0) g/dL RDW (11.5-15.5) % Plt Count (150-450) k/uL Neutrophils % % Lymphocytes % % Monocytes % % Eosinophils % % Basophils % % Neutrophils # (1.3-7.7) k/uL Lymphocytes # (1.0-4.8) k/uL Monocytes # (0-1.0) k/uL Eosinophils # (0-0.7) k/uL Basophils # (0-0.2) k/uL Anisocytosis PT 10.3 (9.0-12.0) sec INR 1.0 (<1.2) APTT 24.3 (22.0-30.0) sec Sodium (137-145) mmol/L Potassium (3.5-5.1) mmol/L Chloride (98-107) mmol/L Carbon Dioxide (22-30) mmol/L Anion Gap mmol/L BUN (7-17) mg/dL Creatinine (0.52-1.04) mg/dL Est GFR (CKD-EPI)AfAm (>60 ml/min/1.73 sqM) Est GFR (CKD-EPI)NonAf (>60 ml/min/1.73 sqM) Glucose (74-99) mg/dL Plasma Lactic Acid Ricardo (0.7-2.0) mmol/L Calcium (8.4-10.2) mg/dL Magnesium (1.6-2.3) mg/dL Total Bilirubin (0.2-1.3) mg/dL AST (14-36) U/L ALT (9-52) U/L Alkaline Phosphatase (38-126) U/L Troponin I 0.032 (0.000-0.034) ng/mL Total Protein (6.3-8.2) g/dL Albumin (3.5-5.0) g/dL Influenza Type A RNA Not Detected (Not Detectd) Influenza Type B (PCR) Not Detected (Not Detectd) Disposition Clinical Impression: COPD exacerbation, Bronchitis, Weakness, Leukocytosis Disposition: ADMITTED IP TO THIS HOSP Condition: Fair Is patient prescribed a controlled substance at d/c from ED?: No Time of Disposition: 00:18 Decision Date: 01/15/19 Decision Time: 00:18
[2019-01-15 02:05] VITALS: BMI 29.0
[2019-01-15] MEDS: methylPREDNISolone SOD SUCCI 125 MG/2 ML VIAL IV SCH ×4 (05:00→21:29)
[2019-01-15 07:28] LABS: Glucose,Whole Blood 217 mg/dL (75-99)
[2019-01-15] MEDS ORDERED: BUDESONIDE 0.5 MG/2 ML NEBU INHALATION SCH (08:00)
[2019-01-15] MEDS ORDERED: SYMBICORT 160-4.5 MCG INHALER INHALATION SCH (08:00)
[2019-01-15] MEDS ORDERED: PNEUMOCOCCAL VACC-PNEUMOVAX 23 25 MCG/0.5 ML VIAL IM ONE (08:20)
[2019-01-15] MEDS: IPRATROPIUM-ALBUTEROL 3 ML NEB INHALATION PRN ×2 (08:38→12:09)
[2019-01-15] MEDS: CYANOCOBALAMIN 500 MCG TAB PO SCH (08:48)
[2019-01-15] MEDS: CHOLECALCIFEROL 1,000 UNIT TAB PO SCH (08:48)
[2019-01-15] MEDS: PANTOPRAZOLE 40 MG TABLET PO SCH (08:48)
[2019-01-15] MEDS: VERAPAMIL 80 MG TAB PO SCH ×2 (08:49→21:31)
[2019-01-15] MEDS: APIXABAN 5 MG TAB PO SCH ×2 (08:49→21:31)
[2019-01-15] MEDS: FUROSEMIDE 40 MG TAB PO SCH (08:49)
[2019-01-15] MEDS: GLIMEPIRIDE 2 MG TAB PO SCH ×2 (08:49→21:30)
[2019-01-15] MEDS: POTASSIUM CHLORIDE ER 10 MEQ TAB.ER.PRT PO SCH (08:49)
[2019-01-15] MEDS: NADOLOL 20 MG TAB PO SCH (08:49)
[2019-01-15] MEDS ORDERED: LEVOFLOXACIN 750MG-D5W PMX 750 MG in DEXTROSE/WATER 1 150ML.BAG IVPB SCH (09:00)
[2019-01-15] MEDS: ACETAMINOPHEN TAB 325 MG TAB PO SCH ×2 (10:31→21:30)
[2019-01-15 11:16] LABS: Glucose,Whole Blood 229 mg/dL (75-99)
[2019-01-15] MEDS: AMIODARONE 100 MG TAB PO SCH (11:24)
--- NOTE | 2019-01-15 12:40 | P.CNPUL ---
History of Present Illness Consult date: 01/15/19 Requesting physician: Jeffrey Fleming Reason for consult: dyspnea Chief complaint: Shortness of breath History of present illness: This is a very pleasant 83-year-old female patient who follows with Dr. Farias as her primary care physician. She has a history of atrial fibrillation anticoagulated with Eliquis, pacemaker implantation, diabetes mellitus, gastric esophageal reflux disease, hypertension, hyperlipidemia, arthritis, osteoporosis, chronic anemia, anxiety/depression. She is a lifelong nonsmoker. She does follow with Dr. Malone in our office for mild intermittent chronic bronchial asthma. Her FEV1 value 67% of predicted. She is maintained on Advair and Xopenex. He is due to see Dr. Lauren of this week however she presented to the emergency room yesterday with complaints of increasing shortness of breath over the previous 3 days and she did have a productive cough of yellow sputum. No significant fever, chills or night sweats. Chest x-ray revealed evidence of cardiomegaly and some pulmonary fibrotic changes. No acute pulmonary process. T-max 99.8. Maintaining good O2 saturations in the upper 90s on 2 L/m per nasal cannula. She is seen today in consultation on the regular medical floor. Awake and alert in no acute distress. She is breathing easier today as compared to yesterday. O2 saturation 99% on 2 L/m per nasal cannula. She's afebrile. Hemodynamically stable. White count 14.1. Hemoglobin 11.3. Creatinine 0.81. Influenza screen negative. She has been initiated on DuoNeb inhalations, Symbicort, IV Solu-Medrol and Levaquin. Review of Systems REVIEW OF SYSTEMS: CONSTITUTIONAL: Denies any recent significant weight loss or weight gain. EYES: Denies change in vision. EARS, NOSE, MOUTH, THROAT: Denies headaches, denies sore throat. CARDIOVASCULAR: Denies chest pain, palpitations or syncopal episodes. RESPIRATORY: Positive for shortness of breath, cough, congestion no hemoptysis. GASTROINTESTINAL: Denies change in appetite, denies abdominal pain GENITOURINARY: Denies hematuria, denies infections. MUSKULOSKELETAL: Denies pain, denies swelling. INTEGUMENTARY: Denies rash, denies eczema. NEUROLOGICAL: Denies recent memory loss, no recent seizure activity. PSYCHIATRIC: Denies anxiety, denies depression. HEMATOLOGIC/LYMPHATIC: Denies anemia, denies enlarged lymph nodes. Past Medical History Past Medical History: Atrial Fibrillation, Asthma, Chest Pain / Angina, Heart Failure, COPD, Diabetes Mellitus, GERD/Reflux, Hyperlipidemia, Hypertension, Myocardial Infarction (VA), Osteoarthritis (OA), Pneumonia Additional Past Medical History / Comment(s): Afib RVR, NIDDM type II, arthritis multiple joints, osteoporosis, chronic anemia, falls, 2013 shingelles Last Myocardial Infarction Date:: 07/16/11 History of Any Multi-Drug Resistant Organisms: None Reported Past Surgical History: Appendectomy, Breast Surgery, Heart Catheterization, Pacemaker, Tubal Ligation Additional Past Surgical History / Comment(s): 02/2011 cardiac cath-normal, benign lumpectomy bronchoscopy, EGD/colonoscopy, bilateral cataract removals, 2010 VATS L lung, falls. Past Anesthesia/Blood Transfusion Reactions: No Reported Reaction Additional Past Anesthesia/Blood Transfusion Reaction / Comment(s): Pt has received blood in past without reaction Type of Cardiac Device: Permanent Pacemaker Device Placement Date:: NOVEMBER 28 2017 Past Psychological History: Anxiety, Depression Additional Psychological History / Comment(s): Pt resides alone at [facility]. She uses either a cane or walker to ambulate. She has a nebulizer and glucometer. She drives. No outside services. Smoking Status: Never smoker Past Alcohol Use History: None Reported Past Drug Use History: None Reported - Past Family History Sister(s) Family Medical History: Cancer Additional Family Medical History / Comment(s): breast CA Mother Family Medical History: No Reported History Additional Family Medical History / Comment(s): from car accident no other hx known Father Family Medical History: No Reported History Additional Family Medical History / Comment(s): committed suicide Daughter(s) Family Medical History: Cancer Additional Family Medical History / Comment(s): breast CA Medications and Allergies Home Medications Medication Instructions Recorded Confirmed Type Apixaban [Eliquis] 5 mg PO BID 11/24/14 01/14/19 History Potassium Chloride [Klor-Con 10] 10 meq PO DAILY 11/26/14 01/14/19 History Fluticasone/Salmeterol [Advair 1 puff INHALATION RT-BID 12/14/14 01/14/19 History 500-50 Diskus] Glimepiride [Amaryl] 2 mg PO BID 06/07/15 01/14/19 History Albuterol Sulfate [Proair Hfa] 2 puff INHALATION RT-Q6H PRN 12/13/15 01/14/19 History Furosemide [Lasix] 40 mg PO DAILY 05/20/16 01/14/19 History Nadolol [Corgard] 40 mg PO DAILY 05/20/16 01/14/19 History Cholecalciferol [Vitamin D3 (25 5,000 unit PO DAILY 09/13/16 01/14/19 History Mcg = 1000 Iu)] Acetaminophen [Tylenol 8 Hour] 650 mg PO BID 08/14/17 01/14/19 History Cyanocobalamin (Vitamin B-12) 1,000 mcg PO DAILY 09/24/17 01/14/19 History [Vitamin B-12] Amiodarone [Cordarone] 100 mg PO DAILY 11/27/17 01/14/19 History Levalbuterol Nebulized [Xopenex 1.25 mg INHALATION RT-BID PRN 06/10/18 01/14/19 History Nebulized] Omeprazole 40 mg PO DAILY 06/10/18 01/14/19 History Verapamil [Isoptin] 80 mg PO BID 06/10/18 01/14/19 History Allergies Allergy/AdvReac Type Severity Reaction Status Date / Time diltiazem AdvReac Itching Verified 01/14/19 20:03 morphine AdvReac Confusion Verified 01/14/19 20:03 Physical Exam Vitals: Vital Signs Temp Pulse Pulse Resp BP BP Pulse Ox 01/15/19 12:21 68 01/15/19 12:11 68 01/15/19 08:58 72 01/15/19 08:45 68 01/15/19 08:00 18 01/15/19 05:18 98.5 F 67 16 126/65 99 01/15/19 01:49 97.9 F 68 16 142/63 97 01/15/19 01:02 18 01/15/19 00:57 99.5 F 67 19 121/54 96 01/14/19 23:29 99.8 F H 01/14/19 23:14 68 01/14/19 23:06 69 01/14/19 23:00 70 20 123/46 98 01/14/19 22:00 71 20 120/52 95 01/14/19 21:54 66 18 114/83 95 01/14/19 21:24 65 01/14/19 19:45 99.2 F 68 24 128/54 94 L Intake and Output 01/14/19 01/15/19 01/15/19 22:59 06:59 14:59 Other: Voiding Method Toilet Toilet # Voids 1 Weight 71.94 kg GENERAL EXAM: Alert, active, comfortable in no apparent distress. On 2 L nasal cannula. HEAD: Normocephalic. EYES: Normal reaction of pupils, equal size. NOSE: Clear with pink turbinates. THROAT: No erythema or exudates. NECK: No masses, no JVD. CHEST: No chest wall deformity. LUNGS: Equal air entry with end expiratory wheeze, coarse crackles in the posterior bases. CVS: S1 and S2 normal with no audible murmur, regular rhythm. ABDOMEN: No hepatosplenomegaly, normal bowel sounds, no guarding or rigidity. SPINE: No scoliosis or deformity SKIN: No rashes CENTRAL NERVOUS SYSTEM: No focal deficits, tone is normal in all 4 extremities. EXTREMITIES: There is no peripheral edema. No clubbing, no cyanosis. Peripheral pulses are intact. Results - Laboratory Findings CBC and BMP: 01/14/19 19:37 01/14/19 19:37 PT/INR, D-dimer PT 10.3 sec (9.0-12.0) 01/14/19 19:37 INR 1.0 (<1.2) 01/14/19 19:37 Abnormal lab findings: Abnormal Labs 01/14/19 01/14/19 01/15/19 19:37 19:37 07:26 WBC 14.1 H Hgb 11.3 L RDW 16.4 H Neutrophils # 11.4 H Monocytes # 1.2 H Sodium 136 L BUN 23 H Glucose 148 H POC Glucose (mg/dL) 217 H 01/15/19 11:10 WBC Hgb RDW Neutrophils # Monocytes # Sodium BUN Glucose POC Glucose (mg/dL) 229 H - Diagnostic Findings Chest x-ray: image reviewed Assessment and Plan Assessment: Impression: #1 Acute exacerbation of moderate persistent chronic bronchial asthma, complicated by purulent tracheobronchitis. X-ray reveals chronic fibrotic changes. Previous history of VATS procedure left lung in 2010. Lifelong nonsmoker. #2 Atrial fibrillation anticoagulated with Eliquis. Currently in sinus rhythm. #3 History of congestive heart failure. #4 Diabetes mellitus. #5 Esophageal reflux disease. #6 Hyperlipidemia. #7 Hypertension. #8 Osteoarthritis. Plan: The patient was seen and evaluated by Dr. Vogt. Chest x-ray reviewed. Some chronic fibrotic changes in the bases. We'll continue with the current treatment plan including bronchodilators, IV Solu-Medrol, Levaquin. We'll continue to follow and make further recommendations based on her clinical status. I, the cosigning physician, performed a history & physical examination of the patient. Lungs sounds with coarse crackles in posterior bases. Maintaining good O2 saturations in the 90s on 2 L/m per nasal cannula. I discussed the assessment and plan of care with my nurse practitioner, Rosario Yanes. I attest to the above note as dictated by her.
[2019-01-15] MEDS ORDERED: ALPRAZolam 0.25 MG TAB PO PRN (15:38)
[2019-01-15] MEDS ORDERED: NALOXONE 0.4 MG/ML 1 ML VIAL IV PRN (15:38)
[2019-01-15] MEDS ORDERED: MELATONIN 3 MG TABLET PO PRN (15:38)
[2019-01-15] MEDS: IPRATROPIUM-ALBUTEROL 3 ML NEB INHALATION SCH ×2 (16:15→20:23)
--- NOTE | 2019-01-15 16:43 | HP ---
HISTORY AND PHYSICAL DATE OF ADMISSION AND SERVICE: 01/15/2019 PRESENTING COMPLAINT: Short of breath, cough. HISTORY OF PRESENTING COMPLAINT: This is an 83-year-old patient of Dr. Royal Farias whose chronic stable medical conditions include congestive heart failure, diabetes, GERD, hypertension, hyperlipidemia, osteoarthritis. Patient for 2 days has been having increasing amount of cough, phlegm, green in color. No fever or chills. Appetite is okay. Wheezing. Not responding. Decided to come into the ER. Started on antibiotics, bronchodilators, steroids and admitted for the same. REVIEW OF SYSTEMS: CONSTITUTIONAL: Tired. HEENT: None. RESPIRATORY: As above. CARDIOVASCULAR: None. GASTROINTESTINAL: None. GENITOURINARY: None. MUSCULOSKELETAL: Pain in the joints. DERMATOLOGICAL: None. HEMATOLOGICAL: None. LYMPHATICS: None. PSYCHIATRY: None. NEUROLOGICAL: None. PAST MEDICAL HISTORY: 1. Congestive heart failure; EF 50% to 55%. 2. Moderate mitral and tricuspid regurgitation. 3. Diabetes mellitus, type 2. 4. GERD. 5. Hyperlipidemia. 6. Hypertension. 7. Osteoarthritis. 8. Paroxysmal atrial fibrillation. 9. Secondary pulmonary hypertension. PAST SURGICAL HISTORY: 1. Appendectomy. 2. Breast surgery. 3. Cardiac catheterization and pacemaker. 4. Had a cardiac cath in February of 2011 that was normal. 5. Bilateral cataracts removed. 6. VATS on the left lung. 7. Permanent pacemaker. PSYCH HISTORY: Anxiety, depression. SOCIAL HISTORY: Uses a cane. Lives at a [facility] apartment. No smoking. No alcohol. FAMILY HISTORY: Breast cancer. HOME MEDICATIONS: 1. Isoptin 80 mg b.i.d. 2. Potassium 10 mEq a day. 3. Omeprazole 40 mg a day. 4. Corgard 40 mg a day. 5. Xopenex 1.25 mg b.i.d. p.r.n. 6. Amaryl 2 mg b.i.d. 7. Lasix 40 mg p.o. daily. 8. Advair 500/50 one puff b.i.d. 9. Vitamin B12 1000 mcg a day. 10.Vitamin D3 5000 units p.o. daily. 11.Eliquis 5 mg b.i.d. 12.Cordarone 100 mg p.o. daily. 13.ProAir 2 puffs q.6 p.r.n. 14.Tylenol 8 Hour 650 mg b.i.d. ALLERGIES: 1. DILTIAZEM. 2. MORPHINE. PHYSICAL EXAMINATION: Temperature 97.8, pulse 83, respiration 16, blood pressure 140/73, pulse ox 94% on 2 L. GENERAL APPEARANCE: Average build. Sitting up. Tired. EYES: Pupils equal. Conjunctivae normal. HEENT: External appearance of nose and ears normal. Oral cavity normal. NECK: JVD not raised. Mass not palpable. RESPIRATORY: Effort increased. LUNGS: Decreased breath sounds. Prolonged expiration and wheezing. Occasional crackles. CARDIOVASCULAR: First and second sounds normal. No edema. ABDOMEN: Soft, nontender. Liver and spleen not palpable. LYMPHATIC: No lymph node palpable in neck or axillae. PSYCHIATRY: Alert and oriented x3. Mood and affect normal. NEUROLOGICAL: Pupils equal. Cranial nerves grossly intact. Power and sensation grossly intact. MUSCULOSKELETAL: Evidence of osteoarthritis. INVESTIGATIONS: White count 14.1, hemoglobin 11.3, platelets 336, potassium 4.0, BUN 23, creatinine 0.81. Influenza A and B negative. EKG tracing, personally reviewed by me, shows LVH with some repolarization changes. Chest x-ray film, personally reviewed by me, shows cardiomegaly, pacemaker in place, some chronic changes. ASSESSMENT: 1. Acute moderate persistent asthma with acute exacerbation with acute tracheobronchitis. 2. Chronic congestive heart failure from diastolic dysfunction; ejection fraction 50% to 55%. 3. Moderate mitral and tricuspid regurgitation, non-rheumatic. 4. Diabetes mellitus, type 2, on oral hypoglycemic. 5. Gastroesophageal reflux disease. 6. Hyperlipidemia. 7. Essential hypertension. 8. Primary osteoarthritis in multiple joints. 9. Paroxysmal atrial fibrillation, chronically on anticoagulation. 10.Secondary pulmonary hypertension due to underlying chronic obstructive pulmonary disease, congestive heart failure. PLAN: Patient was started on bronchodilators, IV ceftriaxone and inhaled steroids. Accu-Cheks will be followed. Other home medications are resumed. Pulmonary was consulted. Care was discussed with the patient. MMODL / IJN: [id number] /
[2019-01-15 17:26] LABS: Glucose,Whole Blood 214 mg/dL (75-99)
[2019-01-15] MEDS: INSULIN ASPART (NovoLOG) 100 UNIT/ML VIAL SQ SCH ×2 (18:31→21:30)
[2019-01-15] MEDS: FORMOTEROL FUMARATE 20 MCG/2 ML NEBU INHALATION SCH (20:24)
[2019-01-15] MEDS: BUDESONIDE 1 MG/2 ML NEBU INHALATION SCH (20:25)
[2019-01-15 21:05] LABS: Glucose,Whole Blood 161 mg/dL (75-99)
[2019-01-16] MEDS: IPRATROPIUM-ALBUTEROL 3 ML NEB INHALATION SCH ×6 (00:35→20:50)
[2019-01-16] MEDS: methylPREDNISolone SOD SUCCI 125 MG/2 ML VIAL IV SCH (05:36)
[2019-01-16 06:58] LABS: Glucose,Whole Blood 205 mg/dL (75-99)
[2019-01-16] MEDS: BUDESONIDE 1 MG/2 ML NEBU INHALATION SCH ×2 (07:30→20:50)
[2019-01-16] MEDS: FORMOTEROL FUMARATE 20 MCG/2 ML NEBU INHALATION SCH ×2 (07:30→20:50)
[2019-01-16] MEDS: INSULIN ASPART (NovoLOG) 100 UNIT/ML VIAL SQ SCH ×4 (08:25→21:20)
[2019-01-16] MEDS: APIXABAN 5 MG TAB PO SCH ×2 (08:26→21:21)
[2019-01-16] MEDS: PANTOPRAZOLE 40 MG TABLET PO SCH (08:26)
[2019-01-16] MEDS: CHOLECALCIFEROL 1,000 UNIT TAB PO SCH (08:26)
[2019-01-16] MEDS: ACETAMINOPHEN TAB 325 MG TAB PO SCH ×2 (08:26→21:20)
[2019-01-16] MEDS: POTASSIUM CHLORIDE ER 10 MEQ TAB.ER.PRT PO SCH (08:26)
[2019-01-16] MEDS: AMIODARONE 100 MG TAB PO SCH (08:27)
[2019-01-16] MEDS: VERAPAMIL 80 MG TAB PO SCH ×2 (08:27→21:21)
[2019-01-16] MEDS: GLIMEPIRIDE 2 MG TAB PO SCH ×2 (08:27→21:21)
[2019-01-16] MEDS: NADOLOL 20 MG TAB PO SCH (08:27)
[2019-01-16] MEDS: CYANOCOBALAMIN 500 MCG TAB PO SCH (08:31)
[2019-01-16] MEDS: FUROSEMIDE 40 MG TAB PO SCH (08:31)
[2019-01-16] MEDS ORDERED: NADOLOL 20 MG TAB PO SCH (08:40)
--- NOTE | 2019-01-16 10:19 | P.PN ---
Subjective Progress Note Date: 01/16/19 Principal diagnosis: Acute exacerbation of chronic moderate persistent asthma This is a very pleasant 83-year-old female patient who follows with Dr. Farias as her primary care physician. She has a history of atrial fibrillation anticoagulated with Eliquis, pacemaker implantation, diabetes mellitus, gastric esophageal reflux disease, hypertension, hyperlipidemia, arthritis, os teoporosis, chronic anemia, anxiety/depression. She is a lifelong nonsmoker. She does follow with Dr. Malone in our office for mild intermittent chronic bronchial asthma. Her FEV1 value 67% of predicted. She is maintained on Advair and Xopenex. He is due to see Dr. Lauren of this week however she presented to the emergency room yesterday with complaints of increasing shortness of breath over the previous 3 days and she did have a productive cough of yellow sputum. No significant fever, chills or night sweats. Chest x-ray revealed evidence of cardiomegaly and some pulmonary fibrotic changes. No acute pulmonary process. T-max 99.8. Maintaining good O2 saturations in the upper 90s on 2 L/m per nasal cannula. She is seen today in consultation on the regular medical floor. Awake and alert in no acute distress. She is breathing easier today as compared to yesterday. O2 saturation 99% on 2 L/m per nasal cannula. She's afebrile. Hemodynamically stable. White count 14.1. Hemoglobin 11.3. Creatinine 0.81. Influenza screen negative. She has been initiated on DuoNeb inhalations, Symbicort, IV Solu-Medrol and Levaquin. The patient is seen today 01/16/2019 in follow-up on the regular medical floor. She is awake and alert in no acute distress. Currently sitting up at the [facility]. Denies any worsening shortness of breath, cough or congestion. She slept well last night. She is still dyspneic on minimal exertion. Not quite back to her baseline. She is continued on Solu-Medrol, bronchodilators, ceftriaxone. Blood cultures reveal no growth to date. Objective - Vital Signs Vital signs: Vital Signs Temp 97.9 F 01/16/19 05:00 Pulse 68 01/16/19 07:52 Resp 18 01/16/19 05:00 BP 146/65 01/16/19 05:00 Pulse Ox 96 01/16/19 05:00 Intake & Output 01/15/19 01/16/19 01/16/19 18:59 06:59 18:59 Intake Total 1580 Balance 1580 Intake: Intake, IV Titration 1100 Amount Sodium Chloride 0.9% 1, 1100 000 ml @ 100 mls/hr IV . Q10H STA Rx#:[id number] Oral 480 Other: Voiding Method Toilet Toilet # Voids 3 2 - Exam GENERAL EXAM: Alert, active, comfortable in no apparent distress. Up in the chair at the bedside. On 2 L nasal cannula. HEAD: Normocephalic. EYES: Normal reaction of pupils, equal size. NOSE: Clear with pink turbinates. THROAT: No erythema or exudates. NECK: No masses, no JVD. CHEST: No chest wall deformity. LUNGS: Equal air entry with end expiratory wheeze, coarse crackles in the posterior bases. CVS: S1 and S2 normal with no audible murmur, regular rhythm. ABDOMEN: No hepatosplenomegaly, normal bowel sounds, no guarding or rigidity. SPINE: No scoliosis or deformity SKIN: No rashes CENTRAL NERVOUS SYSTEM: No focal deficits, tone is normal in all 4 extremities. EXTREMITIES: There is no peripheral edema. No clubbing, no cyanosis. Peripheral pulses are intact. - Labs CBC & Chem 7: 01/14/19 19:37 01/14/19 19:37 Labs: Abnormal Lab Results - Last 24 Hours (Table) 01/15/19 01/15/19 01/15/19 Range/Units 11:10 17:25 20:59 POC Glucose (mg/dL) 229 H 214 H 161 H (75-99) mg/dL 01/16/19 Range/Units 06:56 POC Glucose (mg/dL) 205 H (75-99) mg/dL Microbiology - Last 24 Hours (Table) 01/14/19 22:45 Blood Culture - Preliminary Blood No Growth after 24 hours Assessment and Plan Assessment: Impression: #1 Acute exacerbation of moderate persistent chronic bronchial asthma, compl icated by purulent tracheobronchitis. X-ray reveals chronic fibrotic changes. Previous history of VATS procedure left lung in 2010. Lifelong nonsmoker. #2 Atrial fibrillation anticoagulated with Eliquis. Currently in sinus rhythm. #3 History of congestive heart failure. #4 Diabetes mellitus. #5 Esophageal reflux disease. #6 Hyperlipidemia. #7 Hypertension. #8 Osteoarthritis. Plan: The patient was seen and evaluated by Dr. Vogt. We'll continue with the current treatment plan. Taper the steroids. We'll continue to follow and make further recommendations based on her clinical status. Probable discharge in the a.m. I, the cosigning physician, performed a history & physical examination of the patient. Lungs sounds with coarse crackles in posterior bases. Maintaining good O2 saturations in the 90s on 2 L/m per nasal cannula. I discussed the assessment and plan of care with my nurse practitioner, Rosario Yanes. I attest to the above note as dictated by her.
[2019-01-16 11:05] LABS: Glucose,Whole Blood 206 mg/dL (75-99)
[2019-01-16 13:59] LABS: Glucose,Whole Blood 328 mg/dL (75-99)
[2019-01-16 17:08] LABS: Glucose,Whole Blood 179 mg/dL (75-99)
[2019-01-16] MEDS: methylPREDNISolone SOD SUCCI 40 MG/ML 1 ML VIAL IV SCH ×2 (17:15→23:57)
[2019-01-16 19:59] LABS: Glucose,Whole Blood 274 mg/dL (75-99)
[2019-01-17] MEDS: IPRATROPIUM-ALBUTEROL 3 ML NEB INHALATION SCH ×4 (00:03→10:51)
--- NOTE | 2019-01-17 05:44 | PN ---
PROGRESS NOTE DATE OF SERVICE: 01/16/2019 PRESENTING COMPLAINT: Short of breath, cough. INTERVAL HISTORY: Patient admitted with acute asthma exacerbation, a little bit less congested, still got a cough, some sputum. Appetite is doing okay. She had less wheezing. REVIEW OF SYSTEMS: Done for constitutional, cardiovascular, GI, pulmonary; relevant findings as above. CURRENT MEDICATIONS: Current medications are reviewed that include DuoNeb, IV ceftriaxone, IV Solu-Medrol. PHYSICAL EXAMINATION: On examination, temperature 97.9, pulse 66, respiration 18, blood pressure 146/65, pulse ox 96% on 2 L. GENERAL APPEARANCE: Sitting up, awake. EYES: Pupils equal. Conjunctivae normal. NECK: JVD not raised. Mass not palpable. RESPIRATORY: Effort increased. LUNGS: Decreased breath sounds, prolonged expiration, wheezing. CARDIOVASCULAR: First and second sounds normal. No edema. ABDOMEN: Soft, nontender. Liver and spleen not palpable. PSYCHIATRY: Alert and oriented x3. Mood and affect normal. INVESTIGATIONS: Accu-Cheks are noted. ASSESSMENT: 1. Acute moderate persistent asthma with acute exacerbation from tracheobronchitis. 2. Chronic congestive heart failure from diastolic dysfunction. Ejection fraction 50% to 55%. 3. Moderate mitral and tricuspid regurgitation, nonrheumatic. 4. Diabetes mellitus type 2 on oral hypoglycemic. 5. Gastroesophageal reflux disease. 6. Hyperlipidemia. 7. Essential hypertension. 8. Primary osteoarthritis in multiple joints. 9. Paroxysmal atrial fibrillation chronically on anticoagulation. 10.Secondary pulmonary hypertension due to underlying chronic obstructive pulmonary disease and congestive heart failure. PLAN: Continue current medication and treatment plan currently including steroids, inhaled steroids, bronchodilators, IV ceftriaxone. Patient probably needs to be in the hospital for another day or 2. MMODL / IJN: [id number] /
[2019-01-17 06:46] LABS: Glucose,Whole Blood 197 mg/dL (75-99)
[2019-01-17] MEDS: FORMOTEROL FUMARATE 20 MCG/2 ML NEBU INHALATION SCH (07:03)
[2019-01-17] MEDS: BUDESONIDE 1 MG/2 ML NEBU INHALATION SCH (07:03)
[2019-01-17] MEDS: CHOLECALCIFEROL 1,000 UNIT TAB PO SCH ×2 (07:56→07:58)
[2019-01-17] MEDS: INSULIN ASPART (NovoLOG) 100 UNIT/ML VIAL SQ SCH ×2 (07:56→12:30)
[2019-01-17] MEDS: methylPREDNISolone SOD SUCCI 40 MG/ML 1 ML VIAL IV SCH (07:56)
[2019-01-17] MEDS: PANTOPRAZOLE 40 MG TABLET PO SCH (07:57)
[2019-01-17] MEDS: ACETAMINOPHEN TAB 325 MG TAB PO SCH (07:57)
[2019-01-17] MEDS: POTASSIUM CHLORIDE ER 10 MEQ TAB.ER.PRT PO SCH (07:57)
[2019-01-17] MEDS: FUROSEMIDE 40 MG TAB PO SCH (07:58)
[2019-01-17] MEDS: AMIODARONE 100 MG TAB PO SCH (07:59)
[2019-01-17] MEDS: GLIMEPIRIDE 2 MG TAB PO SCH (07:59)
[2019-01-17] MEDS: CYANOCOBALAMIN 500 MCG TAB PO SCH (07:59)
[2019-01-17] MEDS: VERAPAMIL 80 MG TAB PO SCH (07:59)
[2019-01-17] MEDS: APIXABAN 5 MG TAB PO SCH (07:59)
[2019-01-17] MEDS ORDERED: LEVOFLOXACIN 750 MG TAB PO SCH (09:00)
--- NOTE | 2019-01-17 10:47 | P.PN ---
Subjective Progress Note Date: 01/17/19 Principal diagnosis: Acute exacerbation of chronic moderate persistent asthma This is a very pleasant 83-year-old female patient who follows with Dr. aFrias as her primary care physician. She has a history of atrial fibrillation anticoagulated with Eliquis, pacemaker implantation, diabetes mellitus, gastric esophageal reflux disease, hypertension, hyperlipidemia, arthritis, os teoporosis, chronic anemia, anxiety/depression. She is a lifelong nonsmoker. She does follow with Dr. Malone in our office for mild intermittent chronic bronchial asthma. Her FEV1 value 67% of predicted. She is maintained on Advair and Xopenex. He is due to see Dr. Lauren of this week however she presented to the emergency room yesterday with complaints of increasing shortness of breath over the previous 3 days and she did have a productive cough of yellow sputum. No significant fever, chills or night sweats. Chest x-ray revealed evidence of cardiomegaly and some pulmonary fibrotic changes. No acute pulmonary process. T-max 99.8. Maintaining good O2 saturations in the upper 90s on 2 L/m per nasal cannula. She is seen today in consultation on the regular medical floor. Awake and alert in no acute distress. She is breathing easier today as compared to yesterday. O2 saturation 99% on 2 L/m per nasal cannula. She's afebrile. Hemodynamically stable. White count 14.1. Hemoglobin 11.3. Creatinine 0.81. Influenza screen negative. She has been initiated on DuoNeb inhalations, Symbicort, IV Solu-Medrol and Levaquin. The patient is seen today 01/16/2019 in follow-up on the regular medical floor. She is awake and alert in no acute distress. Currently sitting up at the [facility]. Denies any worsening shortness of breath, cough or congestion. She slept well last night. She is still dyspneic on minimal exertion. Not quite back to her baseline. She is continued on Solu-Medrol, bronchodilators, ceftriaxone. Blood cultures reveal no growth to date. The patient is seen today 01/17/2018 in follow-up on the regular medical floor. Currently sitting up in a chair at the bedside. Awake and alert in no acute distress. She is breathing easier today as compared to yesterday. She does have a bit of nausea today otherwise feeling well. No worsening shortness of breath, cough or congestion. She is maintaining O2 saturations in the 90s on room air. She's afebrile. Hemodynamically stable. Continued on bronchodilators, ceftriaxone, IV Solu-Medrol. Objective - Vital Signs Vital signs: Vital Signs Temp 97.8 F 01/17/19 05:00 Pulse 62 01/17/19 07:25 Resp 17 01/17/19 07:20 BP 144/72 01/17/19 05:00 Pulse Ox 96 01/17/19 05:00 Intake & Output 01/16/19 01/17/19 01/17/19 18:59 06:59 18:59 Intake Total 650 1140 Balance 650 1140 Intake: Intake, IV Titration 100 Amount cefTRIAXone 1 gm In 100 Sodium Chloride 0.9% 50 ml @ 100 mls/hr IVPB Q24HR [facility] Rx#:[id number] Oral 550 1140 Other: Voiding Method Toilet Toilet Toilet # Voids 4 2 - Exam GENERAL EXAM: Alert, active, comfortable in no apparent distress. On room air. HEAD: Normocephalic. EYES: Normal reaction of pupils, equal size. NOSE: Clear with pink turbinates. THROAT: No erythema or exudates. NECK: No masses, no JVD. CHEST: No chest wall deformity. LUNGS: Equal air entry with coarse crackles in the posterior bases. CVS: S1 and S2 normal with no audible murmur, regular rhythm. ABDOMEN: No hepatosplenomegaly, normal bowel sounds, no guarding or rigidity. SPINE: No scoliosis or deformity SKIN: No rashes CENTRAL NERVOUS SYSTEM: No focal deficits, tone is normal in all 4 extremities. EXTREMITIES: There is no peripheral edema. No clubbing, no cyanosis. Peripheral pulses are intact. - Labs CBC & Chem 7: 01/14/19 19:37 01/14/19 19:37 Labs: Abnormal Lab Results - Last 24 Hours (Table) 01/16/19 01/16/19 01/16/19 Range/Units 11:04 13:57 17:06 POC Glucose (mg/dL) 206 H 328 H 179 H (75-99) mg/dL 01/16/19 01/17/19 Range/Units 19:58 06:45 POC Glucose (mg/dL) 274 H 197 H (75-99) mg/dL Microbiology - Last 24 Hours (Table) 01/14/19 22:45 Blood Culture - Preliminary Blood No Growth after 48 hours Assessment and Plan Assessment: Impression: #1 Acute exacerbation of moderate persistent chronic bronchial asthma, compl icated by purulent tracheobronchitis. X-ray reveals chronic fibrotic changes. Previous history of VATS procedure left lung in 2010. Lifelong nonsmoker. #2 Atrial fibrillation anticoagulated with Eliquis. Currently in sinus rhythm. #3 History of congestive heart failure. #4 Diabetes mellitus. #5 Esophageal reflux disease. #6 Hyperlipidemia. #7 Hypertension. #8 Osteoarthritis. Plan: The patient was seen and evaluated by Dr. Vogt. She is cleared for discharge from the pulmonary standpoint. Complete a course of antibiotics. Complete a Prednisone taper. Follow-up in our office in 1 week's time. She is encouraged to call sooner with any recurrence of symptoms or other questions or concerns. I, the cosigning physician, performed a history & physical examination of the patient. Lungs sounds with coarse crackles in the posterior bases. Maintaining good O2 saturations in the 90s on room air. I discussed the assessment and plan of care with my nurse practitioner, Rosario Yanes. I attest to the above note as dictated by her.
[2019-01-17 11:08] LABS: Glucose,Whole Blood 142 mg/dL (75-99)
[2019-01-17 11:53] VITALS: BP 152/83; PULSE 80; RESP 16; TEMP 97.9
[2019-01-17] MEDS ORDERED: FUROSEMIDE 10 MG/ML 2 ML VIAL IV SCH (12:00)
[2019-01-17] MEDS ORDERED: CALCIUM CARBONATE LIQUID 500 MG/5 ML CUP PO STA (12:12)
--- NOTE | 2019-01-18 09:17 | DS ---
DISCHARGE SUMMARY DATE OF ADMISSION: 01/15/2019 DATE OF DISCHARGE: 01/17/2019 FINAL DIAGNOSES: 1. Acute moderate persistent asthma exacerbation from tracheobronchitis. 2. Chronic congestive heart failure from diastolic dysfunction. Ejection fraction 50%- 55%. 3. Moderate mitral and tricuspid regurgitation, nonrheumatic. 4. Diabetes mellitus type 2, on oral hypoglycemic. 5. Gastroesophageal reflux disease. 6. Hyperlipidemia. 7. Essential hypertension. 8. Primary osteoarthritis of multiple joints. 9. Paroxysmal atrial fibrillation chronically on anticoagulation. 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 CONSULTATION: Dr. Vogt. HOSPITAL COURSE: This patient presents with exacerbation from tracheobronchitis. Tracheobronchitis doing much better by the time of discharge. Keen to go home today. Overall feeling much better. PHYSICAL EXAMINATION: Temperature 97.9, pulse 68, respiration 16, blood pressure 122/83. LUNGS: Improved air entry. INVESTIGATIONS: Accu-Cheks are noted. DISCHARGE MEDICATIONS: 1. Eliquis 5 mg b.i.d. 2. Klor-Con 10 mEq p.o. daily. 3. Advair 500/50 one puff b.i.d. 4. Amaryl 2 mg p.o. b.i.d. 5. ProAir 2 puffs q.6 p.r.n. 6. Lasix 40 mg p.o. daily. 7. Corgard 40 mg p.o. daily. 8. Vitamin D3 five thousand units p.o. daily. 9. Tylenol 650 mg b.i.d. 10.Vitamin B12 one thousand mcg p.o. daily. 11.Cordarone 100 mg p.o. daily. 12.Xopenex 1.25 b.i.d. p.r.n. 13.Omeprazole 40 mg p.o. daily. 14.Verapamil 80 mg p.o. b.i.d. 15.Ceftin 500 mg p.o. b.i.d. for 3 days. 16.Perforomist 20 mcg b.i.d. 17.Prednisone taper. FOLLOW UP: Follow up with Royal Farias on 01/23/2019; follow up with Dr. Malone on 02/08/2019. Discussion and discharge planning more than 35 minutes. MMODL / IJN: [id number] /
== END 2019-01-17 13:44 | disposition home or self-care (01) | DRG 191 ==
LOC: EC 19:32 → 3NMEDONC 01-15 00:19
PROVIDERS: ADMIT Hospitalist; ATTEND Hospitalist
DX: J44.0 Chronic obstructive pulmonary disease with (acute) lower respiratory infection (principal); J45.41 Moderate persistent asthma with (acute) exacerbation; I50.32 Chronic diastolic (congestive) heart failure; I48.0 Paroxysmal atrial fibrillation; I11.0 Hypertensive heart disease with heart failure; J20.9 Acute bronchitis, unspecified; E78.5 Hyperlipidemia, unspecified; K21.9 Gastro-esophageal reflux disease without esophagitis; E11.9 Type 2 diabetes mellitus without complications; I27.29 Other secondary pulmonary hypertension; I08.1 Rheumatic disorders of both mitral and tricuspid valves; F41.9 Anxiety disorder, unspecified; I27.20 Pulmonary hypertension, unspecified; M19.91 Primary osteoarthritis, unspecified site; F32.9 Major depressive disorder, single episode, unspecified; R29.6 Repeated falls; I25.2 Old myocardial infarction; Z95.0 Presence of cardiac pacemaker; Z98.42 Cataract extraction status, left eye; Z98.41 Cataract extraction status, right eye; Z79.01 Long term (current) use of anticoagulants; Z79.84 Long term (current) use of oral hypoglycemic drugs; Z79.899 Other long term (current) drug therapy; Z79.51 Long term (current) use of inhaled steroids; Z87.01 Personal history of pneumonia (recurrent); Z80.3 Family history of malignant neoplasm of breast; Z81.8 Family history of other mental and behavioral disorders; Z86.19 Personal history of other infectious and parasitic diseases; Z86.2 Personal history of diseases of the blood and blood-forming organs and certain disorders involving the immune mechanism; Z98.890 Other specified postprocedural states; Z98.51 Tubal ligation status; Z88.8 Allergy status to other drugs, medicaments and biological substances; Z88.5 Allergy status to narcotic agent; Z91.81 History of falling
CPT/HCPCS: 36415; 71046; 80053; 83605; 83735; 84484; 85025; 85610; 85730; 87040; 87502; 90732; 94640; 94760; 96361; 96365; 96366; 96375; 99285

== ENCOUNTER 2019-02-25 10:16 | Inpatient (IN) | payer MEDICARE ==
[2019-02-25] MEDS ORDERED: IPRATROPIUM 0.5 MG/2.5 ML NEBU INHALATION STA (10:25)
[2019-02-25] MEDS ORDERED: ALBUTEROL NEBULIZED 2.5 MG/3 ML INHALATION STA (10:25)
[2019-02-25] MEDS ORDERED: methylPREDNISolone SOD SUCCI 125 MG/2 ML VIAL IV STA (10:25)
--- NOTE | 2019-02-25 11:06 | ED ---
General Adult HPI - General Chief complaint: Chest Pain Stated complaint: Chest Pain Time Seen by Provider: 02/25/19 10:17 Source: patient, RN notes reviewed, old records reviewed Mode of arrival: EMS Limitations: no limitations - History of Present Illness Initial comments: 83-year-old female history of COPD presenting for evaluation of cough and dyspn ea. Patient has had chronic cough for the past several weeks, she is not currently on home oxygen but does have frequent COPD exacerbations. Over the past 24 hours she's had worsening dyspnea, cough productive of yellow-green sputum. She's had subjective fever and chills. She's had some left-sided chest pain which is worse with cough. She has history of atrial fibrillation and is anticoagulated with no central radiating chest pain. No lower extremity pain or swelling - Related Data Home Medications Medication Instructions Recorded Confirmed Apixaban [Eliquis] 5 mg PO BID 11/24/14 02/25/19 Potassium Chloride [Klor-Con 10] 10 meq PO DAILY 11/26/14 02/25/19 Fluticasone/Salmeterol [Advair 1 puff INHALATION RT-BID 12/14/14 02/25/19 500-50 Diskus] Glimepiride [Amaryl] 2 mg PO BID 06/07/15 02/25/19 Albuterol Sulfate [Proair Hfa] 2 puff INHALATION RT-Q6H PRN 12/13/15 02/25/19 Furosemide [Lasix] 40 mg PO DAILY 05/20/16 02/25/19 Nadolol [Corgard] 40 mg PO DAILY 05/20/16 02/25/19 Cholecalciferol [Vitamin D3 (25 5,000 unit PO DAILY 09/13/16 02/25/19 Mcg = 1000 Iu)] Acetaminophen [Tylenol 8 Hour] 650 mg PO BID 08/14/17 02/25/19 Cyanocobalamin (Vitamin B-12) 1,000 mcg PO DAILY 09/24/17 02/25/19 [Vitamin B-12] Amiodarone [Cordarone] 100 mg PO DAILY 11/27/17 02/25/19 Levalbuterol Nebulized [Xopenex 1.25 mg INHALATION RT-BID PRN 06/10/18 02/25/19 Nebulized] Omeprazole 40 mg PO DAILY 06/10/18 02/25/19 Verapamil [Isoptin] 80 mg PO BID 06/10/18 02/25/19 Allergies Allergy/AdvReac Type Severity Reaction Status Date / Time diltiazem AdvReac Itching Verified 02/25/19 10:56 morphine AdvReac Confusion Verified 02/25/19 10:56 Review of Systems ROS Statement: Those systems with pertinent positive or pertinent negative responses have been documented in the HPI. ROS Other: All systems not noted in ROS Statement are negative. Past Medical History Past Medical History: Atrial Fibrillation, Asthma, Chest Pain / Angina, Heart Failure, COPD, Diabetes Mellitus, GERD/Reflux, Hyperlipidemia, Hypertension, Myocardial Infarction (SC), Osteoarthritis (OA), Pneumonia Additional Past Medical History / Comment(s): Afib RVR, NIDDM type II, arthritis multiple joints, osteoporosis, chronic anemia, falls, 2013 shingelles Last Myocardial Infarction Date:: 07/16/11 History of Any Multi-Drug Resistant Organisms: None Reported Past Surgical History: Appendectomy, Breast Surgery, Heart Catheterization, Pacemaker, Tubal Ligation Additional Past Surgical History / Comment(s): 02/2011 cardiac cath-normal, benign lumpectomy bronchoscopy, EGD/colonoscopy, bilateral cataract removals, 2010 VATS L lung, falls. Past Anesthesia/Blood Transfusion Reactions: No Reported Reaction Additional Past Anesthesia/Blood Transfusion Reaction / Comment(s): Pt has received blood in past without reaction Type of Cardiac Device: Permanent Pacemaker Device Placement Date:: NOVEMBER 28 2017 Past Psychological History: Anxiety, Depression Smoking Status: Never smoker Past Alcohol Use History: None Reported Past Drug Use History: None Reported - Past Family History Sister(s) Family Medical History: Cancer Additional Family Medical History / Comment(s): breast CA Mother Family Medical History: No Reported History Additional Family Medical History / Comment(s): from car accident no other hx known Father Family Medical History: No Reported History Additional Family Medical History / Comment(s): committed suicide Daughter(s) Family Medical History: Cancer Additional Family Medical History / Comment(s): breast CA General Exam Limitations: no limitations General appearance: alert, in no apparent distress Head exam: Present: atraumatic, normocephalic Eye exam: Present: normal appearance, PERRL ENT exam: Present: normal exam Neck exam: Present: normal inspection. Absent: tenderness, meningismus Respiratory exam: Present: respiratory distress, wheezes, rhonchi, decreased breath sounds Cardiovascular Exam: Present: regular rate, normal rhythm GI/Abdominal exam: Present: soft. Absent: distended, tenderness, guarding Extremities exam: Present: normal inspection, normal capillary refill. Absent: pedal edema, calf tenderness Neurological exam: Present: alert, oriented X3 Psychiatric exam: Present: normal affect, normal mood Skin exam: Present: warm, dry, intact. Absent: cyanosis, diaphoretic Course Vital Signs 02/25/19 02/25/19 02/25/19 10:19 10:59 11:00 Temperature 98.5 F 100.3 F H Pulse Rate 58 L 60 Respiratory 18 22 20 Rate Blood Pressure 96/86 159/72 O2 Sat by Pulse 93 L 94 L Oximetry 02/25/19 02/25/19 02/25/19 11:10 11:25 12:20 Temperature 99.3 F Pulse Rate 60 68 72 Respiratory 18 Rate Blood Pressure 136/65 O2 Sat by Pulse 96 Oximetry EKG Findings - EKG Comments: EKG Findings:: EKG: Sinus rhythm with first-degree AV block, incomplete left bundle branch block, rate is 74, NV interval 236, QRS duration 114, QTC 499, similar T-wave morphology in the lateral precordium compared to previous EKG in January 2019 Medical Decision Making - Medical Decision Making 83-year-old female history of COPD presenting with cough dyspnea, fever. Patient has significantly elevated white blood cell count at 27,000, chest x-ray concerning for infiltrate. She has a lactic acid 2.2. She does have an elevated BNP is 6000. She's given antibiotics to cover healthcare associated pneumonia. She will be admitted for COPD exacerbation and healthcare associated pneumonia. - Lab Data Result diagrams: 02/25/19 11:18 02/25/19 11:18 Lab Results 02/25/19 02/25/19 02/25/19 Range/Units 11:18 11:18 11:18 WBC 27.5 H (3.8-10.6) k/uL RBC 4.23 (3.80-5.40) m/uL Hgb 11.7 (11.4-16.0) gm/dL Hct 37.3 (34.0-46.0) % MCV 88.1 (80.0-100.0) fL MCH 27.7 (25.0-35.0) pg MCHC 31.5 (31.0-37.0) g/dL RDW 15.5 (11.5-15.5) % Plt Count 391 (150-450) k/uL Neutrophils % 90 % Lymphocytes % 4 % Monocytes % 6 % Eosinophils % 0 % Basophils % 0 % Neutrophils # 24.7 H (1.3-7.7) k/uL Lymphocytes # 1.0 (1.0-4.8) k/uL Monocytes # 1.6 H (0-1.0) k/uL Eosinophils # 0.1 (0-0.7) k/uL Basophils # 0.0 (0-0.2) k/uL PT 10.8 (9.0-12.0) sec INR 1.0 (<1.2) APTT 22.5 (22.0-30.0) sec VBG pH (7.31-7.41) VBG pCO2 (37-51) mmHg VBG HCO3 (24-28) mmol/L Sodium 137 (137-145) mmol/L Potassium 3.9 (3.5-5.1) mmol/L Chloride 101 (98-107) mmol/L Carbon Dioxide 24 (22-30) mmol/L Anion Gap 12 mmol/L BUN 27 H (7-17) mg/dL Creatinine 0.89 (0.52-1.04) mg/dL Est GFR (CKD-EPI)AfAm 69 (>60 ml/min/1.73 sqM) Est GFR (CKD-EPI)NonAf 60 (>60 ml/min/1.73 sqM) Glucose 137 H (74-99) mg/dL Plasma Lactic Acid Ricardo (0.7-2.0) mmol/L Calcium 9.3 (8.4-10.2) mg/dL Magnesium 2.0 (1.6-2.3) mg/dL Total Bilirubin 0.9 (0.2-1.3) mg/dL AST 23 (14-36) U/L ALT 22 (9-52) U/L Alkaline Phosphatase 102 (38-126) U/L Troponin I (0.000-0.034) ng/mL NT-Pro-B Natriuret Pep pg/mL Total Protein 6.4 (6.3-8.2) g/dL Albumin 3.7 (3.5-5.0) g/dL 02/25/19 02/25/19 02/25/19 Range/Units 11:18 11:18 11:18 WBC (3.8-10.6) k/uL RBC (3.80-5.40) m/uL Hgb (11.4-16.0) gm/dL Hct (34.0-46.0) % MCV (80.0-100.0) fL MCH (25.0-35.0) pg MCHC (31.0-37.0) g/dL RDW (11.5-15.5) % Plt Count (150-450) k/uL Neutrophils % % Lymphocytes % % Monocytes % % Eosinophils % % Basophils % % Neutrophils # (1.3-7.7) k/uL Lymphocytes # (1.0-4.8) k/uL Monocytes # (0-1.0) k/uL Eosinophils # (0-0.7) k/uL Basophils # (0-0.2) k/uL PT (9.0-12.0) sec INR (<1.2) APTT (22.0-30.0) sec VBG pH (7.31-7.41) VBG pCO2 (37-51) mmHg VBG HCO3 (24-28) mmol/L Sodium (137-145) mmol/L Potassium (3.5-5.1) mmol/L Chloride (98-107) mmol/L Carbon Dioxide (22-30) mmol/L Anion Gap mmol/L BUN (7-17) mg/dL Creatinine (0.52-1.04) mg/dL Est GFR (CKD-EPI)AfAm (>60 ml/min/1.73 sqM) Est GFR (CKD-EPI)NonAf (>60 ml/min/1.73 sqM) Glucose (74-99) mg/dL Plasma Lactic Acid Ricardo 2.2 H* (0.7-2.0) mmol/L Calcium (8.4-10.2) mg/dL Magnesium (1.6-2.3) mg/dL Total Bilirubin (0.2-1.3) mg/dL AST (14-36) U/L ALT (9-52) U/L Alkaline Phosphatase (38-126) U/L Troponin I 0.034 (0.000-0.034) ng/mL NT-Pro-B Natriuret Pep 6190 pg/mL Total Protein (6.3-8.2) g/dL Albumin (3.5-5.0) g/dL 02/25/19 Range/Units 11:18 WBC (3.8-10.6) k/uL RBC (3.80-5.40) m/uL Hgb (11.4-16.0) gm/dL Hct (34.0-46.0) % MCV (80.0-100.0) fL MCH (25.0-35.0) pg MCHC (31.0-37.0) g/dL RDW (11.5-15.5) % Plt Count (150-450) k/uL Neutrophils % % Lymphocytes % % Monocytes % % Eosinophils % % Basophils % % Neutrophils # (1.3-7.7) k/uL Lymphocytes # (1.0-4.8) k/uL Monocytes # (0-1.0) k/uL Eosinophils # (0-0.7) k/uL Basophils # (0-0.2) k/uL PT (9.0-12.0) sec INR (<1.2) APTT (22.0-30.0) sec VBG pH 7.45 H (7.31-7.41) VBG pCO2 35 L (37-51) mmHg VBG HCO3 24 (24-28) mmol/L Sodium (137-145) mmol/L Potassium (3.5-5.1) mmol/L Chloride (98-107) mmol/L Carbon Dioxide (22-30) mmol/L Anion Gap mmol/L BUN (7-17) mg/dL Creatinine (0.52-1.04) mg/dL Est GFR (CKD-EPI)AfAm (>60 ml/min/1.73 sqM) Est GFR (CKD-EPI)NonAf (>60 ml/min/1.73 sqM) Glucose (74-99) mg/dL Plasma Lactic Acid Ricardo (0.7-2.0) mmol/L Calcium (8.4-10.2) mg/dL Magnesium (1.6-2.3) mg/dL Total Bilirubin (0.2-1.3) mg/dL AST (14-36) U/L ALT (9-52) U/L Alkaline Phosphatase (38-126) U/L Troponin I (0.000-0.034) ng/mL NT-Pro-B Natriuret Pep pg/mL Total Protein (6.3-8.2) g/dL Albumin (3.5-5.0) g/dL Critical Care Time Critical Care Time: Yes Total Critical Care Time: 35 Disposition Clinical Impression: Acute exacerbation of chronic obstructive airways disease, HCAP (healthcare- associated pneumonia) Disposition: ADMITTED IP TO THIS [facility] Condition: Stable Is patient prescribed a controlled substance at d/c from ED?: No Referrals: Royal Farias MD [Primary Care Provider] - 1-2 days Decision to Admit Reason: Admit from EC Decision Date: 02/25/19 Decision Time: 13:31
[2019-02-25 11:38] LABS: VBG PH 7.45 (7.31-7.41)
[2019-02-25 11:50] LABS: Partial Thromboplastin Time 22.5 sec (22.0-30.0); Prothrombin Time 10.8 sec (9.0-12.0)
[2019-02-25 11:51] LABS: Albumin 3.7 g/dL (3.5-5.0); Calcium 9.3 mg/dL (8.4-10.2); Potassium 3.9 mmol/L (3.5-5.1); Total Bilirubin 0.9 mg/dL (0.2-1.3); Total Protein 6.4 g/dL (6.3-8.2)
[2019-02-25 12:01] LABS: Basophils % (A) 0 %; Eosinophils # (A) 0.1 k/uL (0-0.7); Eosinophils % (A) 0 %; HCT 37.3 % (34.0-46.0); HGB 11.7 gm/dL (11.4-16.0); Lymphocytes % (A) 4 %; MCH 27.7 pg (25.0-35.0); MCHC 31.5 g/dL (31.0-37.0); MCV 88.1 fL (80.0-100.0); Mean Platelet Volume 7.5; Monocytes # (A) 1.6 k/uL (0-1.0); Monocytes % (A) 6 %; Neutrophils # (A) 24.7 k/uL (1.3-7.7); Neutrophils % (A) 90 %; Platelet Count 391 k/uL (150-450); RBC 4.23 m/uL (3.80-5.40); RDW 15.5 % (11.5-15.5); WBC 27.5 k/uL (3.8-10.6)
--- NOTE | 2019-02-25 12:14 | XR ---
EXAMINATION TYPE: XR chest 2V DATE OF EXAM: 02/25/2019 COMPARISON: 01/14/2019 HISTORY: 83-year-old female shortness of breath, difficulty breathing TECHNIQUE: AP and lateral views FINDINGS: Left anterior chest wall pacemaker generator with right atrial and right ventricular leads. Heart mil dly enlarged. Mild interstitial prominence is chronic appearance. There is patchy posterior left basi lar opacity without pleural effusion. Tiny dense nodule at the right lower lung is unchanged, probabl e calcified granuloma. IMPRESSION: 1. Mild cardiomegaly. 2. Patchy posterior left basilar opacity could represent atelectasis or developing infiltrate. Follow -up recommended to reassess.
[2019-02-25] MEDS ORDERED: AZITHROMYCIN 500 MG in SODIUM CHLORIDE 0.9% 250 ML IVPB STA (12:25)
[2019-02-25] MEDS ORDERED: CEFEPIME 2 GM in SODIUM CHLORIDE 0.9% 100 ML IVPB STA (12:25)
[2019-02-25] MEDS ORDERED: VANCOMYCIN IV PER PHARMACY 1 EACH MISC MISCELLANE PRN (12:25)
[2019-02-25] MEDS ORDERED: VANCOMYCIN 1,250 MG in SODIUM CHLORIDE 0.9% 250 ML IVPB STA (12:33)
[2019-02-25] MEDS ORDERED: IPRATROPIUM-ALBUTEROL 3 ML NEB INHALATION PRN (13:28)
[2019-02-25] MEDS ORDERED: ACETAMINOPHEN TAB 500 MG TAB PO STA (13:49)
[2019-02-25] MEDS: IPRATROPIUM-ALBUTEROL 3 ML NEB INHALATION SCH ×2 (15:34→20:24)
[2019-02-25] MEDS: PANTOPRAZOLE 40 MG TABLET PO SCH (16:09)
[2019-02-25] MEDS: AMIODARONE 100 MG TAB PO SCH (17:03)
[2019-02-25] MEDS ORDERED: SODIUM CHLORIDE 0.9% 500 ML 500 ML IV ONE ×2 (17:56→22:56)
[2019-02-25 20:01] LABS: Glucose,Whole Blood 337 mg/dL (75-99)
[2019-02-25 20:12] VITALS: BMI 24.7
[2019-02-25] MEDS: SYMBICORT 160-4.5 MCG INHALER INHALATION SCH (20:24)
[2019-02-25] MEDS ORDERED: ACETAMINOPHEN TAB 325 MG TAB PO PRN (21:00)
[2019-02-25] MEDS: APIXABAN 5 MG TAB PO SCH (21:09)
[2019-02-25] MEDS: GLIMEPIRIDE 2 MG TAB PO SCH (21:09)
[2019-02-25] MEDS: INSULIN ASPART (NovoLOG) 100 UNIT/ML VIAL SQ SCH (21:09)
[2019-02-25] MEDS: methylPREDNISolone SOD SUCCI 125 MG/2 ML VIAL IV SCH (21:11)
[2019-02-25] MEDS: SODIUM CHLORIDE 0.9% 1,000 ML IV SCH (21:11)
[2019-02-25 22:38] LABS: Glucose,Whole Blood 336 mg/dL (75-99)
--- NOTE | 2019-02-25 22:42 | P.HPIM ---
History of Present Illness H&P Date: 02/25/19 Chief Complaint: Shortness of breath Patient is a 83-year-old female with a known history of atrial fibrillation on anticoagulation, permanent pacemaker placement, asthma/COPD, hypertension, hyperlipidemia, GERD, cardiac catheterization in 2010 with no PCI, and multiple other medical problems, recent pneumonia about 2 weeks ago, came to ER with complaints of shortness of breath 1 day duration. Patient has been having cough and yellowish sputum production. Patient has been having symptoms for the past 2 weeks and got worse and his yesterday. Patient felt clammy and cold. Subjective fevers. Patient also felt chest soreness/left-sided chest pain aggravated with cough. Patient presents to ER with worsening dyspnea. Denied any leg swelling. No nausea vomiting or abdominal pain or diarrhea. Patient is not on home oxygen. Patient does not have history of smoking. Patient follows with Dr. Malone as an outpatient. Chest x-ray showed mild cardiomegaly, patchy posterior left basilar opacity could represent atelectasis or developing infiltrate. Follow-up recommended to assess. WBC 27.5, lactic acid 2.2, BNP 6190. EKG showed normal sinus rhythm. Pulse ox 93% on 2 L nausea cannula Review of Systems Constitutional: Patient denies any fever or chills . No generalized weakness or weight loss. Abdomen: Patient denied nausea vomiting and diarrhea and abdominal pain. Cardiovascular: Patient denies any chest pain or short of breath no palpitations. Respiratory: Cough with sputum production and shortness of breath Neurologic: Patient denied any numbness or tingling headache. Musculoskeletal: Patient denies any complaints of joint swelling or deformity. Skin: Negative Psychiatric: Negative Endocrine: No heat or cold intolerance. No recent weight gain. Genitourinary: No dysuria or hematuria. All other 14 point ROS negative except the above Past Medical History Past Medical History: Atrial Fibrillation, Asthma, Chest Pain / Angina, Heart Failure, COPD, Diabetes Mellitus, GERD/Reflux, Hyperlipidemia, Hypertension, Myocardial Infarction (IA), Osteoarthritis (OA), Pneumonia Additional Past Medical History / Comment(s): Afib RVR, NIDDM type II, arthritis multiple joints, osteoporosis, chronic anemia, falls, 2013 shingelles Last Myocardial Infarction Date:: 07/16/11 History of Any Multi-Drug Resistant Organisms: None Reported Past Surgical History: Appendectomy, Breast Surgery, Heart Catheterization, Pacemaker, Tubal Ligation Additional Past Surgical History / Comment(s): 02/2011 cardiac cath-normal, benign lumpectomy bronchoscopy, EGD/colonoscopy, bilateral cataract removals, 2010 VATS L lung, falls. Past Anesthesia/Blood Transfusion Reactions: No Reported Reaction Additional Past Anesthesia/Blood Transfusion Reaction / Comment(s): Pt has received blood in past without reaction Type of Cardiac Device: Permanent Pacemaker Device Placement Date:: NOVEMBER 28 2017 Past Psychological History: Anxiety, Depression Smoking Status: Never smoker Past Alcohol Use History: None Reported Past Drug Use History: None Reported - Past Family History Sister(s) Family Medical History: Cancer Additional Family Medical History / Comment(s): breast CA Mother Family Medical History: No Reported History Additional Family Medical History / Comment(s): from car accident no other hx known Father Family Medical History: No Reported History Additional Family Medical History / Comment(s): committed suicide Daughter(s) Family Medical History: Cancer Additional Family Medical History / Comment(s): breast CA Medications and Allergies Home Medications Medication Instructions Recorded Confirmed Type Apixaban [Eliquis] 5 mg PO BID 11/24/14 02/25/19 History Potassium Chloride [Klor-Con 10] 10 meq PO DAILY 11/26/14 02/25/19 History Fluticasone/Salmeterol [Advair 1 puff INHALATION RT-BID 12/14/14 02/25/19 History 500-50 Diskus] Glimepiride [Amaryl] 2 mg PO BID 06/07/15 02/25/19 History Albuterol Sulfate [Proair Hfa] 2 puff INHALATION RT-Q6H PRN 12/13/15 02/25/19 History Furosemide [Lasix] 40 mg PO DAILY 05/20/16 02/25/19 History Nadolol [Corgard] 40 mg PO DAILY 05/20/16 02/25/19 History Cholecalciferol [Vitamin D3 (25 5,000 unit PO DAILY 09/13/16 02/25/19 History Mcg = 1000 Iu)] Acetaminophen [Tylenol 8 Hour] 650 mg PO BID 08/14/17 02/25/19 History Cyanocobalamin (Vitamin B-12) 1,000 mcg PO DAILY 09/24/17 02/25/19 History [Vitamin B-12] Amiodarone [Cordarone] 100 mg PO DAILY 11/27/17 02/25/19 History Levalbuterol Nebulized [Xopenex 1.25 mg INHALATION RT-BID PRN 06/10/18 02/25/19 History Nebulized] Omeprazole 40 mg PO DAILY 06/10/18 02/25/19 History Verapamil [Isoptin] 80 mg PO BID 06/10/18 02/25/19 History Allergies Allergy/AdvReac Type Severity Reaction Status Date / Time diltiazem AdvReac Itching Verified 02/25/19 10:56 morphine AdvReac Confusion Verified 02/25/19 10:56 Physical Exam Vitals: Vital Signs Temp Pulse Resp BP Pulse Ox 02/25/19 15:01 98.2 F 68 16 124/69 97 02/25/19 13:50 99 F 70 18 102/50 95 02/25/19 12:20 99.3 F 72 18 136/65 96 02/25/19 11:25 68 02/25/19 11:10 60 02/25/19 11:00 100.3 F H 60 20 159/72 94 L 02/25/19 10:59 22 02/25/19 10:19 98.5 F 58 L 18 96/86 93 L Intake and Output 02/25/19 02/25/19 02/25/19 06:59 14:59 22:59 Other: Weight 61.235 kg PHYSICAL EXAMINATION: Patient is lying in the bed comfortably, no acute distress, awake alert and oriented.. HEENT: Normocephalic. Neck is supple. Pupils reactive. Nostrils clear. Oral cavity is moist. Ears reveal no drainage. Neck reveals no JVD, carotid bruits, or thyromegaly. CHEST EXAMINATION: Trachea is central. Symmetrical expansion. Bibasilar coarse breath sounds. Minimal expiratory wheeze. CARDIAC: Normal S1, S2 with no gallops. No murmurs ABDOMEN: Soft. Bowel sounds normal. No organomegaly. No abdominal bruits. Extremities: reveal no edema. No clubbing or cyanosis Neurologically awake, alert, oriented x3 with well-coordinated movements. No focal deficits noted Skin: No rash or skin lesions. Psychiatric: Coperative. Nonsuicidal Musculoskeletal: No joint swelling or deformity. Normal range of motion. Results CBC & Chem 7: 02/25/19 11:18 02/25/19 11:18 Labs: Abnormal Lab Results - Last 24 Hours (Table) 02/25/19 02/25/19 02/25/19 Range/Units 11:18 11:18 11:18 WBC 27.5 H (3.8-10.6) k/uL Neutrophils # 24.7 H (1.3-7.7) k/uL Monocytes # 1.6 H (0-1.0) k/uL VBG pH (7.31-7.41) VBG pCO2 (37-51) mmHg BUN 27 H (7-17) mg/dL Glucose 137 H (74-99) mg/dL Plasma Lactic Acid Ricardo 2.2 H* (0.7-2.0) mmol/L 02/25/19 Range/Units 11:18 WBC (3.8-10.6) k/uL Neutrophils # (1.3-7.7) k/uL Monocytes # (0-1.0) k/uL VBG pH 7.45 H (7.31-7.41) VBG pCO2 35 L (37-51) mmHg BUN (7-17) mg/dL Glucose (74-99) mg/dL Plasma Lactic Acid Ricardo (0.7-2.0) mmol/L Thrombosis Risk Factor Assmnt - DVT/VTE Prophylaxis DVT/VTE Prophylaxis: Pharmacologic Prophylaxis ordered Assessment and Plan Assessment: Left basilar pneumonia. Recent hospital admission, we'll continue with vancomycin and cefepime. Acute moderate persistent asthma with exacerbation secondary to above Significant leukocytosis at 27.5 Chronic CHF with diastolic dysfunction. BNP is elevated but is in the same range as previous hospitalizations. Diabetes type 2 [id number] Paroxysmal atrial fibrillation. On anticoagulation with Eliquis and also on amiodarone. 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 Plan: Patient will be converted on antibiotics in the form of vancomycin and cefepime. 1 dose of azithromycin was given in the ER as well. Continue with home blood pressure medications with holding parameters. Follow blood cultures and repeat lactic acid level. Follow-up CBC and BMP tomorrow. We will consult pulmonary due to recurrent asthma exacerbations. Continue with IV steroids and DuoNeb's. Follow up closely. Further recommendations based on the clinical course. Time with Patient: Greater than 30
[2019-02-25] MEDS: VERAPAMIL 80 MG TAB PO SCH (23:22)
[2019-02-25] MEDS: CEFEPIME 2 GM in SODIUM CHLORIDE 0.9% 100 ML IVPB SCH (23:25)
[2019-02-26] MEDS: methylPREDNISolone SOD SUCCI 125 MG/2 ML VIAL IV SCH ×4 (01:43→17:48)
[2019-02-26 02:18] LABS: Glucose,Whole Blood 224 mg/dL (75-99)
[2019-02-26] MEDS: VANCOMYCIN 1,000 MG in SODIUM CHLORIDE 0.9% 250 ML IVPB SCH ×2 (06:19→22:47)
[2019-02-26 07:09] LABS: Glucose,Whole Blood 226 mg/dL (75-99)
[2019-02-26] MEDS: CYANOCOBALAMIN 500 MCG TAB PO SCH (07:49)
[2019-02-26] MEDS: PANTOPRAZOLE 40 MG TABLET PO SCH (07:49)
[2019-02-26] MEDS: CHOLECALCIFEROL 1,000 UNIT TAB PO SCH (07:49)
[2019-02-26] MEDS: FUROSEMIDE 40 MG TAB PO SCH (07:50)
[2019-02-26] MEDS: POTASSIUM CHLORIDE ER 10 MEQ TAB.ER.PRT PO SCH (07:50)
[2019-02-26] MEDS: APIXABAN 5 MG TAB PO SCH ×2 (07:50→21:54)
[2019-02-26] MEDS: NADOLOL 20 MG TAB PO SCH (07:50)
[2019-02-26] MEDS: GLIMEPIRIDE 2 MG TAB PO SCH ×2 (07:51→21:54)
[2019-02-26] MEDS: VERAPAMIL 80 MG TAB PO SCH ×2 (07:51→21:55)
[2019-02-26] MEDS: INSULIN ASPART (NovoLOG) 100 UNIT/ML VIAL SQ SCH ×4 (07:51→21:55)
[2019-02-26] MEDS: AMIODARONE 100 MG TAB PO SCH (07:52)
[2019-02-26] MEDS: IPRATROPIUM-ALBUTEROL 3 ML NEB INHALATION SCH ×4 (08:09→19:55)
[2019-02-26] MEDS: SYMBICORT 160-4.5 MCG INHALER INHALATION SCH ×2 (08:09→19:55)
[2019-02-26] MEDS: CEFEPIME 2 GM in SODIUM CHLORIDE 0.9% 100 ML IVPB SCH ×2 (08:57→21:52)
[2019-02-26] MEDS: SODIUM CHLORIDE 0.9% 1,000 ML IV SCH (08:58)
[2019-02-26 10:26] LABS: Calcium 8.7 mg/dL (8.4-10.2); Potassium 4.2 mmol/L (3.5-5.1)
[2019-02-26 10:27] LABS: Basophils % (A) 0 %; Eosinophils % (A) 0 %; HCT 30.5 % (34.0-46.0); Hypochromasia Moderate; Lymphocytes # (A) 0.9 k/uL (1.0-4.8); Lymphocytes % (A) 2 %; MCH 28.5 pg (25.0-35.0); MCHC 30.9 g/dL (31.0-37.0); Mean Platelet Volume 8.3; Monocytes # (A) 0.6 k/uL (0-1.0); Monocytes % (A) 2 %; Neutrophils # (A) 36.5 k/uL (1.3-7.7); Neutrophils % (A) 96 %; Platelet Count 297 k/uL (150-450); RBC 3.32 m/uL (3.80-5.40); RDW 15.5 % (11.5-15.5); WBC 38.1 k/uL (3.8-10.6)
[2019-02-26 10:31] LABS: HGB 9.4 gm/dL (11.4-16.0)
--- NOTE | 2019-02-26 11:47 | XR ---
EXAMINATION TYPE: XR chest 1V DATE OF EXAM: 02/26/2019 COMPARISON: Chest x-ray 02/25/2019 HISTORY: Pneumonia TECHNIQUE: Single frontal view of the chest is obtained. FINDINGS: The heart remains enlarged. Intracardiac leads are stable in the right atrium and ventricl e. Calcified granuloma suspected in the right mid lung. No evident pneumothorax or pleural effusion. Patient is rotated. Arthropathy noted in the shoulders. Suspect persistent retrocardiac density. Aort a is dense. IMPRESSION: Retrocardiac density is again noted, consider atelectasis, pneumonia. Follow-up PA and l ateral chest x-ray for better evaluation.
[2019-02-26 11:56] LABS: Glucose,Whole Blood 189 mg/dL (75-99)
--- NOTE | 2019-02-26 12:06 | P.CNPUL ---
History of Present Illness Consult date: 02/26/19 Requesting physician: Jessica Eckert Reason for consult: dyspnea Chief complaint: Shortness of breath, cough, congestion History of present illness: This is a very pleasant 83-year-old female patient who follows with Dr. Farias as her primary care physician. She has history of atrial fibrillation anticoagulated with Eliquis, permanent pacemaker implantation, diabetes mellitus, gastroesophageal reflux disease, hypertension, hyperlipidemia, arthritis, osteoporosis, chronic anemia, anxiety/depression. She is a lifelong nonsmoker. She follows with Dr. Malone in our office for mild intermittent chronic bronchial asthma. Her FEV1 value 67% of predicted. She is maintained on Advair and Xopenex. She was admitted here directly 6 weeks ago for an exacerbation of her asthma. She been doing well until recently. She states she had been outside for 4 hours 3 days ago and it was kind of DL. At a graduation democrat. The next day she woke up feeling shortness of breath, cough and congestion. Yesterday she was worse and presented here to the emergency room for the same. No fever, chills or night sweats. Yellow productive sputum. Chest x-ray revealed some retrocardiac density. She did have a T-max of 100.3 yesterday. Initial white count 27.5. Currently 38.1. Hemoglobin 9.4. Sodium 139. Creatinine 0.82. ProBNP 6190. She has been initiated on vancomycin and cefepime along with bronchodilators and IV Solu-Medrol. She is seen today in consultation on the regular medical floor. Currently sitting up at the bedside. Awake and alert in no acute distress. Breathing a bit easier today as compared to yesterday. Continues with a loose productive cough of yellow sputum. Cu rrently afebrile. Hemodynamically stable. Review of Systems REVIEW OF SYSTEMS: CONSTITUTIONAL: Denies any recent significant weight loss or weight gain. EYES: Denies change in vision. EARS, NOSE, MOUTH, THROAT: Denies headaches, denies sore throat. CARDIOVASCULAR: Denies chest pain, palpitations or syncopal episodes. RESPIRATORY: Positive for shortness of breath, cough, congestion no hemoptysis. GASTROINTESTINAL: Denies change in appetite, denies abdominal pain GENITOURINARY: Denies hematuria, denies infections. MUSKULOSKELETAL: Denies pain, denies swelling. INTEGUMENTARY: Denies rash, denies eczema. NEUROLOGICAL: Denies recent memory loss, no recent seizure activity. PSYCHIATRIC: Denies anxiety, denies depression. HEMATOLOGIC/LYMPHATIC: Denies anemia, denies enlarged lymph nodes. Past Medical History Past Medical History: Atrial Fibrillation, Asthma, Chest Pain / Angina, Heart Failure, COPD, Diabetes Mellitus, GERD/Reflux, Hyperlipidemia, Hypertension, Myocardial Infarction (CA), Osteoarthritis (OA), Pneumonia Additional Past Medical History / Comment(s): Afib RVR, NIDDM type II, arthritis multiple joints, osteoporosis, chronic anemia, falls, 2013 shingelles Last Myocardial Infarction Date:: 07/16/11 History of Any Multi-Drug Resistant Organisms: None Reported Past Surgical History: Appendectomy, Breast Surgery, Heart Catheterization, Pacemaker, Tubal Ligation Additional Past Surgical History / Comment(s): 02/2011 cardiac cath-normal, benign lumpectomy bronchoscopy, EGD/colonoscopy, bilateral cataract removals, 2010 VATS L lung, falls. Past Anesthesia/Blood Transfusion Reactions: No Reported Reaction Additional Past Anesthesia/Blood Transfusion Reaction / Comment(s): Pt has received blood in past without reaction Type of Cardiac Device: Permanent Pacemaker Device Placement Date:: NOVEMBER 28 2017 Past Psychological History: Anxiety, Depression Smoking Status: Never smoker Past Alcohol Use History: None Reported Past Drug Use History: None Reported - Past Family History Sister(s) Family Medical History: Cancer Additional Family Medical History / Comment(s): breast CA Mother Family Medical History: No Reported History Additional Family Medical History / Comment(s): from car accident no other hx known Father Family Medical History: No Reported History Additional Family Medical History / Comment(s): committed suicide Daughter(s) Family Medical History: Cancer Additional Family Medical History / Comment(s): breast CA Medications and Allergies Home Medications Medication Instructions Recorded Confirmed Type Apixaban [Eliquis] 5 mg PO BID 11/24/14 02/25/19 History Potassium Chloride [Klor-Con 10] 10 meq PO DAILY 11/26/14 02/25/19 History Fluticasone/Salmeterol [Advair 1 puff INHALATION RT-BID 12/14/14 02/25/19 History 500-50 Diskus] Glimepiride [Amaryl] 2 mg PO BID 06/07/15 02/25/19 History Albuterol Sulfate [Proair Hfa] 2 puff INHALATION RT-Q6H PRN 12/13/15 02/25/19 History Furosemide [Lasix] 40 mg PO DAILY 05/20/16 02/25/19 History Nadolol [Corgard] 40 mg PO DAILY 05/20/16 02/25/19 History Cholecalciferol [Vitamin D3 (25 5,000 unit PO DAILY 09/13/16 02/25/19 History Mcg = 1000 Iu)] Acetaminophen [Tylenol 8 Hour] 650 mg PO BID 08/14/17 02/25/19 History Cyanocobalamin (Vitamin B-12) 1,000 mcg PO DAILY 09/24/17 02/25/19 History [Vitamin B-12] Amiodarone [Cordarone] 100 mg PO DAILY 11/27/17 02/25/19 History Levalbuterol Nebulized [Xopenex 1.25 mg INHALATION RT-BID PRN 06/10/18 02/25/19 History Nebulized] Omeprazole 40 mg PO DAILY 06/10/18 02/25/19 History Verapamil [Isoptin] 80 mg PO BID 06/10/18 02/25/19 History Allergies Allergy/AdvReac Type Severity Reaction Status Date / Time diltiazem AdvReac Itching Verified 02/25/19 10:56 morphine AdvReac Confusion Verified 02/25/19 10:56 Physical Exam Vitals: Vital Signs Temp Pulse Pulse Resp BP BP Pulse Ox 02/26/19 11:46 97.7 F 60 18 107/71 97 02/26/19 11:40 68 02/26/19 08:26 62 02/26/19 08:09 64 02/26/19 08:00 61 20 02/26/19 05:25 97.6 F 61 20 112/69 95 02/26/19 00:08 98 F 57 L 20 94/55 97 02/25/19 22:38 95/40 02/25/19 20:38 97.7 F 62 24 90/51 96 02/25/19 20:35 62 16 02/25/19 20:25 60 16 98 02/25/19 18:13 62 107/48 02/25/19 17:43 98.5 F 62 18 85/39 98 02/25/19 16:15 62 16 103/46 96 02/25/19 15:42 68 02/25/19 15:36 67 02/25/19 15:01 98.2 F 68 16 124/69 97 02/25/19 13:50 99 F 70 18 102/50 95 02/25/19 12:20 99.3 F 72 18 136/65 96 Intake and Output 02/25/19 02/26/19 02/26/19 22:59 06:59 14:59 Intake Total 890 1790 360 Balance 890 1790 360 Intake: Intake, IV Titration 1200 Amount Cefepime 2 gm In Sodium 100 Chloride 0.9% 100 ml @ 200 mls/hr IVPB Q12HR [facility] Rx#:[id number] Sodium Chloride 0.9% 1, 600 000 ml @ 75 mls/hr IV . [id number] [facility] Rx#:[id number] Sodium Chloride 0.9% 500 500 ml 500 ml @ 999 mls/hr IV .Q31M [facility] Rx#:[id number] Oral 890 590 360 Other: Voiding Method Toilet Toilet # Voids 1 2 # Bowel Movements 1 1 GENERAL EXAM: Alert, comfortable in no apparent distress. On 2 L nasal cannula. 97% O2 saturation. HEAD: Normocephalic. EYES: Normal reaction of pupils, equal size. NOSE: Clear with pink turbinates. THROAT: No erythema or exudates. NECK: No masses, no JVD. CHEST: No chest wall deformity. LUNGS: Equal air entry with few scattered rhonchi. CVS: S1 and S2 normal with no audible murmur, regular rhythm. ABDOMEN: No hepatosplenomegaly, normal bowel sounds, no guarding or rigidity. SPINE: No scoliosis or deformity SKIN: No rashes CENTRAL NERVOUS SYSTEM: No focal deficits, tone is normal in all 4 extremities. EXTREMITIES: There is no peripheral edema. No clubbing, no cyanosis. Periphe ral pulses are intact. Results - Laboratory Findings CBC and BMP: 02/26/19 09:16 02/26/19 09:16 PT/INR, D-dimer PT 10.8 sec (9.0-12.0) 02/25/19 11:18 INR 1.0 (<1.2) 02/25/19 11:18 Abnormal lab findings: Abnormal Labs 02/25/19 02/25/19 02/25/19 11:18 11:18 11:18 WBC 27.5 H RBC Hgb Hct MCHC Neutrophils # 24.7 H Monocytes # 1.6 H VBG pH VBG pCO2 BUN 27 H Glucose 137 H POC Glucose (mg/dL) Plasma Lactic Acid Ricardo 2.2 H* 02/25/19 02/25/19 02/25/19 11:18 19:59 22:36 WBC RBC Hgb Hct MCHC Neutrophils # Monocytes # VBG pH 7.45 H VBG pCO2 35 L BUN Glucose POC Glucose (mg/dL) 337 H 336 H Plasma Lactic Acid Ricardo 02/26/19 02/26/19 02/26/19 02:17 07:07 09:16 WBC 38.1 H RBC 3.32 L Hgb 9.4 L D Hct 30.5 L MCHC 30.9 L Neutrophils # Monocytes # VBG pH VBG pCO2 BUN Glucose POC Glucose (mg/dL) 224 H 226 H Plasma Lactic Acid Ricardo 02/26/19 09:16 WBC RBC Hgb Hct MCHC Neutrophils # Monocytes # VBG pH VBG pCO2 BUN 25 H Glucose 213 H POC Glucose (mg/dL) Plasma Lactic Acid Ricardo - Diagnostic Findings Chest x-ray: image reviewed Assessment and Plan Assessment: Impression: #1 Acute exacerbation of chronic moderate persistent bronchial asthma, complicated by purulent tracheobronchitis. #2 Leukocytosis secondary to above. #3 Previous history of VATS procedure on the left lung in 2010 with chronic fibrotic changes. #4 Atrial fibrillation, anticoagulated with Eliquis. #5 History of congestive heart failure. #6 Diabetes mellitus. #7 Gastroesophageal reflux disease. #8 Hyperlipidemia. #9 Hypertension. #10 Osteoarthritis. #11 Anxiety/depression. Plan: The patient was seen and evaluated by Dr. Vogt. Chest x-ray and labs reviewed. We'll continue with the current treatment plan including bronchodilators, Symbicort, IV Solu-Medrol. On antibiotics in form of vancomycin and cefepime. We will increase her activity as tolerated. Titrate down the FiO2 as tolerated. We will continue to follow and make further recommendations based on her clinical status. I, the cosigning physician, performed a history & physical examination of the patient. Lungs sounds with few scattered rhonchi. Maintaining good O2 saturations in the 90s on 2 L/m per nasal cannula. I discussed the assessment and plan of care with my nurse practitioner, Rosario Yanes. I attest to the above note as dictated by her. Time with Patient: Greater than 30
--- NOTE | 2019-02-26 14:58 | CDI ---
Documentation Clarification Form Date: 02/26/2019 2:44:45 PM From: Kym Sandhu RN CCDS Admit Date: 02/26/2019 1:22:00 PM Patient Name: Vashti Jane Visit Number: [id number] Discharge Date: ATTENTION: The Clinical Documentation Specialists (CDI) and [facility] Coding Staff appreciate your assistance in clarifying documentation. Please respond to the clarification below the line at the bottom and electronically sign. The CDI & [facility] Coding staff will review the response and follow-up if needed. Please note: Queries are made part of the Legal Health Record. If you have any questions, please contact the author of this message via ITS. Dr. Jessica Eckert Pneumonia was documented in the H & P History/Risk Factors: 83 year old female presents to the ED with cough and dyspnea. Medical history of COPD/Asthma, atrial fibrillation; recent pneumonia Clinical Indicators: Recent hospital admission, well continue with vancomycin and cefepime WBC Wbc 27.5 Neutrophils 24.7 X-ray: mild cardiomegaly patchy posterior left basilar opacity could represent atelectasis or developing infiltrate Lung/Breathing assessment Treatment: Vital signs: 96/86 58 98.5 18 93% 2L Antibiotics Cefepime, Vancomycin O2 2L nasal cannula Breathing Tx: Dulibanbs In order to capture the severity of condition, please clarify if the condition signifies and you are treating for: Gram Negative Pneumonia Pneumonia - Other bacteria (please specify) Other, please specify Unable to determine (Last Revision: December 2017) Possible Gram Negative Pneumonia MTDD
--- NOTE | 2019-02-26 15:15 | CDI ---
Documentation Clarification Form Date: 02/26/2019 2:58:56 PM From: Kym Sandhu RN CCDS Admit Date: 02/26/2019 1:22:00 PM Patient Name: Vashti Jane Visit Number: [id number] Discharge Date: ATTENTION: The Clinical Documentation Specialists (CDI) and [facility] Coding Staff appreciate your assistance in clarifying documentation. Please respond to the clarification below the line at the bottom and electronically sign. The CDI & [facility] Coding staff will review the response and follow-up if needed. Please note: Queries are made part of the Legal Health Record. If you have any questions, please contact the author of this message via ITS. Dr. Jessica Eckert The patient presented with the a cough and shortness of breath. History/Risk Factors: 83 year old female with a medical history of COPD/Asthma, Atrial Fibrillation and recent Pneumonia Home oxygen: No home oxygen use per ED report Clinical Indicators: Vital signs: 96/86 58 98.5 18 93% 2L nasal cannula Lactic acid 2.2 Lung/Breathing assessment: ABG/CBG: pH7.45 pO2 35 Hco3 24 Treatment: Solumedrol Breathing tx Ventolin, Albuterol Oxygen 2L nasal cannula In your professional opinion, can you please clarify if these findings signify one of the following conditions? * Acute Respiratory Failure (further specify (if known)): With hypercapnia? (pCO2 >50 and pH <7.35) With hypoxia? (pO2 <60 mm Hg or SpO2 <91% on room air) * Acute Respiratory Distress * Acute Respiratory Insufficiency * Other Diagnosis, please specify * Unable to determine (Last Revision: December 2017) Acute hypoxic respiratory failure secondary to pneumonia and COPD MTDD
--- NOTE | 2019-02-26 15:26 | CDI ---
Documentation Clarification Form Date: 02/26/2019 3:16:01 PM From: Kym Sandhu RN CCDS Admit Date: 02/26/2019 1:22:00 PM Patient Name: Vashti Jane Visit Number: [id number] Discharge Date: ATTENTION: The Clinical Documentation Specialists (CDI) and [facility] Coding Staff appreciate your assistance in clarifying documentation. Please respond to the clarification below the line at the bottom and electronically sign. The CDI & [facility] Coding staff will review the response and follow-up if needed. Please note: Queries are made part of the Legal Health Record. If you have any questions, please contact the author of this message via ITS. Dr. Jessica Eckert The patient presented with shortness of breath and coughing Clinical Indicators: 83 year old female with a medical history of COPD/Asthma, Atrial Fibrillation and recent Pneumonia WBC 27.5 Neutrophils 24.7 Lactic acid: 2.2 Vitals signs on admission: 96/86 58 98.5 18 93% 2L nasal cannula Repeat vitals 159/72 60 100.3 20 94% 2L nasal cannula Other Clinical Indicators: Treatment: Solumedrol; Duoneb; Ventolin; Pulmicort Antibiotics: Cefepime Ivpb; Vancomycin Ivpb IV Bolus: 1L 0.9ns ivfl Other: In your professional opinion, please clarify if these findings signify one of the following conditions, whether the condition is POA, and cause, if known: Condition oSepsis ruled out oSIRS, without underlying infectious process oSepsis POA oOther, please specify oUnable to determine SIRS Criteria (2 or more of the following may indicate SIRS): -Temperature < 96.8F (36C) or > 101.0F (38.3C) -Heart Rate > 90 bpm -Respiratory Rate > 20 breaths/min or PaCO2 < 32 mmHg -White Blood Cell Count > 12,000 or < 4,000 cells/mm3 or > 10% bands -Lactate >2.0 mmol/L (>4.0 is equivalent to septic shock) (Last Revision: December 2017) Sepsis POA MTDD
[2019-02-26] MEDS ORDERED: RX INFO: IV CONTRAST WAS GIVEN 1 EACH MISC MISCELLANE PRN (15:36)
[2019-02-26 17:08] LABS: Glucose,Whole Blood 247 mg/dL (75-99)
--- NOTE | 2019-02-26 17:37 | CT ---
EXAMINATION TYPE: CT angio chest DATE OF EXAM: 02/26/2019 5:06 PM COMPARISON: 07/05/2018 HISTORY: Shortness of breath and pleuritic chest pain. CT DLP: 425 mGycm Automated exposure control for dose reduction was used. CONTRAST: CTA scan of the thorax is performed with IV Contrast, patient injected with 64 mL of Isovue 370, pulm onary embolism protocol. There are 3-D post processed images.. FINDINGS: There is patchy groundglass interstitial infiltrate in both lungs. There is some patchy nodular infil trate at the posterior lung bases. There is coalescent density and consolidation in the posterior bas al segment left lower lobe. There is no pleural effusion. Heart is enlarged. There is no pericardial effusion. Thoracic aorta is atheromatous. There is no mediastinal adenopathy. There are a few mediast inal lymph nodes that measure less than 1 cm. There is no evidence of aortic dissection. There is normal contrast opacification of the pulmonary ar teries. I see no filling defect. There are no hilar masses. There are large central pulmonary arterie s. There is spondylotic change in the thoracic spine. There is no compression fracture. I see no focal b one destruction. IMPRESSION: NO EVIDENCE OF PULMONARY EMBOLISM. EXTENSIVE PATCHY CONSOLIDATION AND ATELECTASIS AT THE LUNG BASES IS A CHANGE COMPARED TO OLD EXAM AND LIKELY RELATED TO INFLAMMATORY DISEASE. THIS IS MORE SEVERE IN THE LEFT LOWER LOBE. THIS IS A RELATI VELY RAPID CHANGE COMPARED TO OLD CT SCAN AND THEREFORE MORE LIKELY INFLAMMATORY. EXTENSIVE INTERSTITIAL PULMONARY INFILTRATES CONSISTENT WITH FIBROSIS SIMILAR TO OLD EXAM.
[2019-02-26 20:26] LABS: Glucose,Whole Blood 219 mg/dL (75-99)
--- NOTE | 2019-02-26 22:54 | P.PN ---
Subjective Progress Note Date: 02/26/19 Principal diagnosis: Acute moderate persistent asthma exacerbation Patient is a 83-year-old female with a known history of atrial fibrillation on anticoagulation, permanent pacemaker placement, asthma/COPD, hypertension, hyperlipidemia, GERD, cardiac catheterization in 2010 with no PCI, and multiple other medical problems, recent pneumonia about 2 weeks ago, came to ER with co mplaints of shortness of breath 1 day duration. Patient has been having cough and yellowish sputum production. Patient has been having symptoms for the past 2 weeks and got worse and his yesterday. Patient felt clammy and cold. Subjective fevers. Patient also felt chest soreness/left-sided chest pain aggravated with cough. Patient presents to ER with worsening dyspnea. Denied any leg swelling. No nausea vomiting or abdominal pain or diarrhea. Patient is not on home oxygen. Patient does not have history of smoking. Patient follows with Dr. Malone as an outpatient. Chest x-ray showed mild cardiomegaly, patchy posterior left basilar opacity could represent atelectasis or developing infiltrate. Follow-up recommended to assess. WBC 27.5, lactic acid 2.2, BNP 6190. EKG showed normal sinus rhythm. Pulse ox 93% on 2 L nausea cannula 02/26/2019 Patient says that she is feeling better today. He has some exertional dyspnea. Leukocytosis is likely due to steroids and pneumonia. Patient is being continued on IV steroids, breathing treatments and antibiotics. No fever no chills. No chest pain or worsening shortness of breath. No nausea vomiting or diarrhea. Current medications reviewed. Objective - Vital Signs Vital signs: Vital Signs Temp 97.7 F 02/26/19 11:46 Pulse 61 02/26/19 20:05 Resp 16 02/26/19 20:05 BP 107/71 02/26/19 11:46 Pulse Ox 95 02/26/19 15:49 Intake & Output 02/26/19 02/26/19 02/27/19 06:59 18:59 06:59 Intake Total 2680 720 Balance 2680 720 Intake: Intake, IV Titration 1200 Amount Cefepime 2 gm In Sodium 100 Chloride 0.9% 100 ml @ 200 mls/hr IVPB Q12HR [facility] Rx#:[id number] Sodium Chloride 0.9% 1, 600 000 ml @ 75 mls/hr IV . [id number] [facility] Rx#:[id number] Sodium Chloride 0.9% 500 500 ml 500 ml @ 999 mls/hr IV .Q31M [facility] Rx#:[id number] Oral 1480 720 Other: Voiding Method Toilet Toilet # Voids 2 4 # Bowel Movements 1 - Exam PHYSICAL EXAMINATION: Patient is lying in the bed comfortably, no acute distress, awake alert and oriented.. HEENT: Normocephalic. Neck is supple. Pupils reactive. Nostrils clear. Oral cavity is moist. Ears reveal no drainage. Neck reveals no JVD, carotid bruits, or thyromegaly. CHEST EXAMINATION: Trachea is central. Symmetrical expansion. Minimal basilar crackles. Mild expiratory wheeze.. CARDIAC: Normal S1, S2 with no gallops. No murmurs ABDOMEN: Soft. Bowel sounds normal. No organomegaly. No abdominal bruits. Extremities: reveal no edema. No clubbing or cyanosis Neurologically awake, alert, oriented x3 with well-coordinated movements. No focal deficits noted Skin: No rash or skin lesions. Psychiatric: Coperative. Nonsuicidal Musculoskeletal: No joint swelling or deformity. Normal range of motion. - Labs CBC & Chem 7: 02/26/19 09:16 02/26/19 09:16 Labs: Abnormal Lab Results - Last 24 Hours (Table) 02/25/19 02/26/19 02/26/19 Range/Units 22:36 02:17 07:07 WBC (3.8-10.6) k/uL RBC (3.80-5.40) m/uL Hgb (11.4-16.0) gm/dL Hct (34.0-46.0) % MCHC (31.0-37.0) g/dL Neutrophils # (1.3-7.7) k/uL Lymphocytes # (1.0-4.8) k/uL BUN (7-17) mg/dL Glucose (74-99) mg/dL POC Glucose (mg/dL) 336 H 224 H 226 H (75-99) mg/dL 02/26/19 02/26/19 02/26/19 Range/Units 09:16 09:16 11:44 WBC 38.1 H (3.8-10.6) k/uL RBC 3.32 L (3.80-5.40) m/uL Hgb 9.4 L D (11.4-16.0) gm/dL Hct 30.5 L (34.0-46.0) % MCHC 30.9 L (31.0-37.0) g/dL Neutrophils # 36.5 H (1.3-7.7) k/uL Lymphocytes # 0.9 L (1.0-4.8) k/uL BUN 25 H (7-17) mg/dL Glucose 213 H (74-99) mg/dL POC Glucose (mg/dL) 189 H (75-99) mg/dL 02/26/19 02/26/19 Range/Units 17:05 20:25 WBC (3.8-10.6) k/uL RBC (3.80-5.40) m/uL Hgb (11.4-16.0) gm/dL Hct (34.0-46.0) % MCHC (31.0-37.0) g/dL Neutrophils # (1.3-7.7) k/uL Lymphocytes # (1.0-4.8) k/uL BUN (7-17) mg/dL Glucose (74-99) mg/dL POC Glucose (mg/dL) 247 H 219 H (75-99) mg/dL Microbiology - Last 24 Hours (Table) 02/25/19 11:18 Blood Culture - Preliminary Blood No Growth after 24 hours Assessment and Plan Assessment: Left basilar pneumonia. Recent hospital admission, we'll continue with vancomycin and cefepime. Acute moderate persistent asthma with exacerbation secondary to above Significant leukocytosis at 27.5 Chronic CHF with diastolic dysfunction. BNP is elevated but is in the same range as previous hospitalizations. Diabetes type 2 [id number] Paroxysmal atrial fibrillation. On anticoagulation with Eliquis and also on amiodarone. 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 History of VATS due to left fibrotic lung changes Plan: Patient will be converted on antibiotics in the form of vancomycin and cefepime. 1 dose of azithromycin was given in the ER as well. Continue with home blood pressure medications with holding parameters. Follow blood cultures and repeat lactic acid level. Follow-up CBC and BMP tomorrow. Pulmonary is on board.. Continue with IV steroids and DuoNeb's. Follow up closely. Further recommendations based on the clinical course. Time with Patient: Greater than 30
[2019-02-27] MEDS: methylPREDNISolone SOD SUCCI 125 MG/2 ML VIAL IV SCH ×5 (00:08→23:25)
[2019-02-27] MEDS: SODIUM CHLORIDE 0.9% 1,000 ML IV SCH ×2 (00:09→13:21)
[2019-02-27 07:06] LABS: Glucose,Whole Blood 222 mg/dL (75-99)
[2019-02-27] MEDS: VERAPAMIL 80 MG TAB PO SCH ×2 (08:06→21:03)
[2019-02-27] MEDS: POTASSIUM CHLORIDE ER 10 MEQ TAB.ER.PRT PO SCH (08:06)
[2019-02-27] MEDS: AMIODARONE 100 MG TAB PO SCH (08:06)
[2019-02-27] MEDS: NADOLOL 20 MG TAB PO SCH (08:06)
[2019-02-27] MEDS: FUROSEMIDE 40 MG TAB PO SCH (08:06)
[2019-02-27] MEDS: CYANOCOBALAMIN 500 MCG TAB PO SCH (08:07)
[2019-02-27] MEDS: CHOLECALCIFEROL 1,000 UNIT TAB PO SCH (08:07)
[2019-02-27] MEDS: APIXABAN 5 MG TAB PO SCH ×2 (08:08→21:03)
[2019-02-27] MEDS: PANTOPRAZOLE 40 MG TABLET PO SCH (08:11)
[2019-02-27] MEDS: IPRATROPIUM-ALBUTEROL 3 ML NEB INHALATION SCH ×4 (08:11→19:49)
[2019-02-27] MEDS: SYMBICORT 160-4.5 MCG INHALER INHALATION SCH ×2 (08:11→19:48)
[2019-02-27] MEDS: GLIMEPIRIDE 2 MG TAB PO SCH ×2 (08:12→21:03)
[2019-02-27] MEDS: INSULIN ASPART (NovoLOG) 100 UNIT/ML VIAL SQ SCH ×4 (08:13→21:03)
[2019-02-27 08:29] LABS: HCT 32.9 % (34.0-46.0); HGB 10.1 gm/dL (11.4-16.0); Hypochromasia Moderate; MCH 28.5 pg (25.0-35.0); MCHC 30.8 g/dL (31.0-37.0); MCV 92.3 fL (80.0-100.0); Mean Platelet Volume 8.2; Platelet Count 296 k/uL (150-450); RBC 3.56 m/uL (3.80-5.40); RDW 15.6 % (11.5-15.5); WBC 27.6 k/uL (3.8-10.6)
[2019-02-27 08:45] LABS: Calcium 9.4 mg/dL (8.4-10.2); Potassium 4.5 mmol/L (3.5-5.1)
[2019-02-27] MEDS: CEFEPIME 2 GM in SODIUM CHLORIDE 0.9% 100 ML IVPB SCH ×2 (09:15→21:03)
[2019-02-27 10:45] LABS: Band Neutrophils % 1 %; Lymphocytes # (M) 0.55 k/uL (1.0-4.8); Monocytes # (M) 0.28 k/uL (0-1.0); Neutrophils % (M) 96 %; Nucleated Red Blood Cells 0 /100 WBC (0-0); Total Cells Counted 100
--- NOTE | 2019-02-27 11:05 | P.PN ---
Subjective Progress Note Date: 02/27/19 Principal diagnosis: Acute exacerbation of chronic moderate persistent bronchial asthma, complicated by basilar pneumonia left greater than right. This is a very pleasant 83-year-old female patient who follows with Dr. Farias as her primary care physician. She has history of atrial fibrillation anticoagulated with Eliquis, permanent pacemaker implantation, diabetes mellitus, gastroesophageal reflux disease, hypertension, hyperlipidemia, arthritis, osteoporosis, chronic anemia, anxiety/depression. She is a lifelong nonsmoker. She follows with Dr. Malone in our office for mild intermittent chronic bronchial asthma. Her FEV1 value 67% of predicted. She is maintained on Advair and Xopenex. She was admitted here directly 6 weeks ago for an exacerbation of her asthma. She been doing well until recently. She states she had been outside for 4 hours 3 days ago and it was kind of DL. At a graduation green party. The next day she woke up feeling shortness of breath, cough and congestion. Yesterday she was worse and presented here to the emergency room for the same. No fever, chills or night sweats. Yellow productive sputum. Chest x-ray revealed some retrocardiac density. She did have a T-max of 100.3 yesterday. Initial white count 27.5. Currently 38.1. Hemoglobin 9.4. Sodium 139. Creatinine 0.82. ProBNP 6190. She has been initiated on vancomycin and cefepime along with bronchodilators and IV Solu-Medrol. She is seen today in consultation on the regular medical floor. Currently sitting up at the bedside. Awake and alert in no acute distress. Breathing a bit easier today as compared to yesterday. Continues with a loose productive cough of yellow sputum. Currently afebrile. Hemodynamically stable. The patient is seen today 02/27/2019 in follow-up on the regular medical floor. She is currently sitting up in a chair at the bedside. Awake and alert in no acute distress. She did have some dyspnea earlier this morning with some cough and congestion. She is receiving DuoNeb inhalations, Symbicort, IV Solu-Medrol. She is on antibiotics in the form of vancomycin and cefepime. CT angiogram ruled out pulmonary embolism. There was however extensive patchy consolidation and atelectasis at the lung bases more so on the left lower lobe, suspect inflammatory. Ongoing extensive interstitial pulmonary infiltrates consistent with fibrosis. She is maintaining good O2 saturations in the mid 90s on 2 L/m per nasal cannula. She's been afebrile. Hemodynamically stable. White count 27.6. Hemoglobin 10.1. Creatinine 0.81. Blood culture reveals no growth. Objective - Vital Signs Vital signs: Vital Signs Temp 97.6 F 02/27/19 05:00 Pulse 68 02/27/19 08:29 Resp 16 02/27/19 05:00 BP 124/80 02/27/19 05:00 Pulse Ox 94 L 02/27/19 05:00 Intake & Output 02/26/19 02/27/19 02/27/19 18:59 06:59 18:59 Intake Total 720 1190 Balance 720 1190 Intake: Intake, IV Titration 600 Amount Sodium Chloride 0.9% 1, 600 000 ml @ 75 mls/hr IV . [id number] [facility] Rx#:[id number] Oral 720 590 Other: Voiding Method Toilet Toilet # Voids 4 2 - Exam GENERAL EXAM: Pleasant 83-year-old female patient. Alert, comfortable in no apparent distress. On 2 L nasal cannula. 94% O2 saturation. HEAD: Normocephalic. EYES: Normal reaction of pupils, equal size. NOSE: Clear with pink turbinates. THROAT: No erythema or exudates. NECK: No masses, no JVD. CHEST: No chest wall deformity. LUNGS: Equal air entry with few scattered rhonchi, crackles in the bases left greater than right. CVS: S1 and S2 normal with no audible murmur, regular rhythm. ABDOMEN: No hepatosplenomegaly, normal bowel sounds, no guarding or rigidity. SPINE: No scoliosis or deformity SKIN: No rashes CENTRAL NERVOUS SYSTEM: No focal deficits, tone is normal in all 4 extremities. EXTREMITIES: There is no peripheral edema. No clubbing, no cyanosis. Peripheral pulses are intact. - Labs CBC & Chem 7: 02/27/19 07:23 02/27/19 07:23 Labs: Abnormal Lab Results - Last 24 Hours (Table) 02/26/19 02/26/19 02/26/19 Range/Units 09:16 11:44 17:05 WBC 38.1 H (3.8-10.6) k/uL RBC 3.32 L (3.80-5.40) m/uL Hgb 9.4 L D (11.4-16.0) gm/dL Hct 30.5 L (34.0-46.0) % MCHC 30.9 L (31.0-37.0) g/dL RDW (11.5-15.5) % Neutrophils # 36.5 H (1.3-7.7) k/uL Neutrophils # (Manual) (1.3-7.7) k/uL Lymphocytes # 0.9 L (1.0-4.8) k/uL Lymphocytes # (Manual) (1.0-4.8) k/uL Chloride (98-107) mmol/L Carbon Dioxide (22-30) mmol/L BUN (7-17) mg/dL Glucose (74-99) mg/dL POC Glucose (mg/dL) 189 H 247 H (75-99) mg/dL 02/26/19 02/27/19 02/27/19 Range/Units 20:25 07:03 07:23 WBC 27.6 H (3.8-10.6) k/uL RBC 3.56 L (3.80-5.40) m/uL Hgb 10.1 L (11.4-16.0) gm/dL Hct 32.9 L (34.0-46.0) % MCHC 30.8 L (31.0-37.0) g/dL RDW 15.6 H (11.5-15.5) % Neutrophils # (1.3-7.7) k/uL Neutrophils # (Manual) 26.70 H (1.3-7.7) k/uL Lymphocytes # (1.0-4.8) k/uL Lymphocytes # (Manual) 0.55 L (1.0-4.8) k/uL Chloride (98-107) mmol/L Carbon Dioxide (22-30) mmol/L BUN (7-17) mg/dL Glucose (74-99) mg/dL POC Glucose (mg/dL) 219 H 222 H (75-99) mg/dL 02/27/19 Range/Units 07:23 WBC (3.8-10.6) k/uL RBC (3.80-5.40) m/uL Hgb (11.4-16.0) gm/dL Hct (34.0-46.0) % MCHC (31.0-37.0) g/dL RDW (11.5-15.5) % Neutrophils # (1.3-7.7) k/uL Neutrophils # (Manual) (1.3-7.7) k/uL Lymphocytes # (1.0-4.8) k/uL Lymphocytes # (Manual) (1.0-4.8) k/uL Chloride 110 H (98-107) mmol/L Carbon Dioxide 21 L (22-30) mmol/L BUN 26 H (7-17) mg/dL Glucose 206 H (74-99) mg/dL POC Glucose (mg/dL) (75-99) mg/dL Microbiology - Last 24 Hours (Table) 02/25/19 11:18 Blood Culture - Preliminary Blood No Growth after 24 hours Assessment and Plan Assessment: Impression: #1 Acute exacerbation of chronic moderate persistent bronchial asthma, complicated by bibasilar pneumonia left greater than right. #2 Leukocytosis secondary to above. #3 Previous history of VATS procedure on the left lung in 2010 with chronic fibrotic changes. #4 Atrial fibrillation, anticoagulated with Eliquis. #5 History of congestive heart failure. #6 Diabetes mellitus. #7 Gastroesophageal reflux disease. #8 Hyperlipidemia. #9 Hypertension. #10 Osteoarthritis. #11 Anxiety/depression. Plan: The patient was seen and evaluated by Dr. Vogt. CT angiogram and labs reviewed. We'll continue with the current treatment plan. We will continue to follow and make further recommendations based on her clinical status. I, the cosigning physician, performed a history & physical examination of the patient. Lungs sounds with few scattered rhonchi, crackles in the bilateral bases left greater than right. Maintaining good O2 saturations in the 90s on 2 L/m per nasal cannula. I discussed the assessment and plan of care with my nurse practitioner, Rosario Yanes. I attest to the above note as dictated by her.
[2019-02-27 11:59] LABS: Glucose,Whole Blood 200 mg/dL (75-99)
[2019-02-27] MEDS: VANCOMYCIN 1,000 MG in SODIUM CHLORIDE 0.9% 250 ML IVPB SCH (13:35)
[2019-02-27 17:14] LABS: Glucose,Whole Blood 198 mg/dL (75-99)
[2019-02-27 20:35] LABS: Glucose,Whole Blood 290 mg/dL (75-99)
[2019-02-28] MEDS: SODIUM CHLORIDE 0.9% 1,000 ML IV SCH ×2 (04:25→18:12)
[2019-02-28] MEDS ORDERED: VANCOMYCIN TROUGH DUE 1 EACH MISC MISCELLANE ONE (05:00)
[2019-02-28] MEDS: methylPREDNISolone SOD SUCCI 125 MG/2 ML VIAL IV SCH ×4 (05:23→23:14)
[2019-02-28] MEDS: VANCOMYCIN 1,000 MG in SODIUM CHLORIDE 0.9% 250 ML IVPB SCH ×2 (06:21→22:29)
[2019-02-28 07:00] LABS: Glucose,Whole Blood 221 mg/dL (75-99)
[2019-02-28] MEDS: IPRATROPIUM-ALBUTEROL 3 ML NEB INHALATION SCH ×4 (07:17→19:28)
[2019-02-28] MEDS: SYMBICORT 160-4.5 MCG INHALER INHALATION SCH ×2 (07:17→19:28)
[2019-02-28] MEDS: INSULIN ASPART (NovoLOG) 100 UNIT/ML VIAL SQ SCH ×4 (08:23→20:37)
[2019-02-28] MEDS: NADOLOL 20 MG TAB PO SCH (10:03)
[2019-02-28] MEDS: FUROSEMIDE 40 MG TAB PO SCH (10:04)
[2019-02-28] MEDS: GLIMEPIRIDE 2 MG TAB PO SCH ×2 (10:04→20:38)
[2019-02-28] MEDS: PANTOPRAZOLE 40 MG TABLET PO SCH (10:04)
[2019-02-28] MEDS: VERAPAMIL 80 MG TAB PO SCH ×2 (10:04→20:38)
[2019-02-28] MEDS: CHOLECALCIFEROL 1,000 UNIT TAB PO SCH (10:04)
[2019-02-28] MEDS: CYANOCOBALAMIN 500 MCG TAB PO SCH (10:05)
[2019-02-28] MEDS: CEFEPIME 2 GM in SODIUM CHLORIDE 0.9% 100 ML IVPB SCH ×2 (10:05→20:38)
[2019-02-28] MEDS: APIXABAN 5 MG TAB PO SCH ×2 (10:05→20:38)
[2019-02-28] MEDS: AMIODARONE 100 MG TAB PO SCH (10:05)
--- NOTE | 2019-02-28 11:23 | P.PN ---
Subjective Progress Note Date: 02/28/19 Principal diagnosis: Acute exacerbation of chronic moderate persistent bronchial asthma, complicated by basilar pneumonia left greater than right. This is a very pleasant 83-year-old female patient who follows with Dr. Farias as her primary care physician. She has history of atrial fibrillation anticoagulated with Eliquis, permanent pacemaker implantation, diabetes mellitus, gastroesophageal reflux disease, hypertension, hyperlipidemia, arthritis, osteoporosis, chronic anemia, anxiety/depression. She is a lifelong nonsmoker. She follows with Dr. Malone in our office for mild intermittent chronic bronchial asthma. Her FEV1 value 67% of predicted. She is maintained on Advair and Xopenex. She was admitted here directly 6 weeks ago for an exacerbation of her asthma. She been doing well until recently. She states she had been outside for 4 hours 3 days ago and it was kind of DL. At a graduation libertarian. The next day she woke up feeling shortness of breath, cough and congestion. Yesterday she was worse and presented here to the emergency room for the same. No fever, chills or night sweats. Yellow productive sputum. Chest x-ray revealed some retrocardiac density. She did have a T-max of 100.3 yesterday. Initial white count 27.5. Currently 38.1. Hemoglobin 9.4. Sodium 139. Creatinine 0.82. ProBNP 6190. She has been initiated on vancomycin and cefepime along with bronchodilators and IV Solu-Medrol. She is seen today in consultation on the regular medical floor. Currently sitting up at the bedside. Awake and alert in no acute distress. Breathing a bit easier today as compared to yesterday. Continues with a loose productive cough of yellow sputum. Currently afebrile. Hemodynamically stable. The patient is seen today 02/27/2019 in follow-up on the regular medical floor. She is currently sitting up in a chair at the bedside. Awake and alert in no acute distress. She did have some dyspnea earlier this morning with some cough and congestion. She is receiving DuoNeb inhalations, Symbicort, IV Solu-Medrol. She is on antibiotics in the form of vancomycin and cefepime. CT angiogram ruled out pulmonary embolism. There was however extensive patchy consolidation and atelectasis at the lung bases more so on the left lower lobe, suspect inflammatory. Ongoing extensive interstitial pulmonary infiltrates consistent with fibrosis. She is maintaining good O2 saturations in the mid 90s on 2 L/m per nasal cannula. She's been afebrile. Hemodynamically stable. White count 27.6. Hemoglobin 10.1. Creatinine 0.81. Blood culture reveals no growth. Patient is seen today 02/28/2019 in follow-up on the regular medical floor. She is awake and alert in no acute distress. She is breathing quite a bit better today as compared to yesterday. Nearly back to her baseline. She continues with loose nonproductive cough. She is maintaining good O2 saturations in the mid 90s on room air. She's been afebrile. Hemodynamically stable. Blood culture reveals no growth. She remains on DuoNeb inhalations, Symbicort, IV Solu-Medrol. Antibiotics in the form of vancomycin and cefepime. Objective - Vital Signs Vital signs: Vital Signs Temp 97.8 F 02/28/19 04:57 Pulse 71 02/28/19 08:25 Resp 18 02/28/19 08:25 BP 135/78 02/28/19 04:57 Pulse Ox 96 02/28/19 04:57 Intake & Output 02/27/19 02/28/19 02/28/19 18:59 06:59 18:59 Intake Total 2029 Balance 2029 Intake: Intake, IV Titration 350 Amount Cefepime 2 gm In Sodium 100 Chloride 0.9% 100 ml @ 200 mls/hr IVPB Q12HR [facility] Rx#:[id number] Vancomycin 1,000 mg In 250 Sodium Chloride 0.9% 250 ml @ 125 mls/hr IVPB Q16H [facility] Rx#:[id number] Oral 1680 Other: Voiding Method Toilet Toilet Toilet # Voids 6 1 - Exam GENERAL EXAM: Pleasant 83-year-old female patient. Alert, comfortable in no apparent distress. On room air. HEAD: Normocephalic. EYES: Normal reaction of pupils, equal size. NOSE: Clear with pink turbinates. THROAT: No erythema or exudates. NECK: No masses, no JVD. CHEST: No chest wall deformity. LUNGS: Equal air entry with few scattered rhonchi, crackles in the bases left greater than right. CVS: S1 and S2 normal with no audible murmur, regular rhythm. ABDOMEN: No hepatosplenomegaly, normal bowel sounds, no guarding or rigidity. SPINE: No scoliosis or deformity SKIN: No rashes CENTRAL NERVOUS SYSTEM: No focal deficits, tone is normal in all 4 extremities. EXTREMITIES: There is no peripheral edema. No clubbing, no cyanosis. Peripheral pulses are intact. - Labs CBC & Chem 7: 02/27/19 07:23 02/27/19 07:23 Labs: Abnormal Lab Results - Last 24 Hours (Table) 02/27/19 02/27/19 02/27/19 Range/Units 11:58 17:12 20:33 POC Glucose (mg/dL) 200 H 198 H 290 H (75-99) mg/dL 02/28/19 Range/Units 06:58 POC Glucose (mg/dL) 221 H (75-99) mg/dL Microbiology - Last 24 Hours (Table) 02/25/19 11:18 Blood Culture - Preliminary Blood No Growth after 48 hours Assessment and Plan Assessment: Impression: #1 Acute exacerbation of chronic moderate persistent bronchial asthma, complicated by bibasilar pneumonia left greater than right. #2 Leukocytosis secondary to above. #3 Previous history of VATS procedure on the left lung in 2010 with chronic fibrotic changes. #4 Atrial fibrillation, anticoagulated with Eliquis. #5 History of congestive heart failure. #6 Diabetes mellitus. #7 Gastroesophageal reflux disease. #8 Hyperlipidemia. #9 Hypertension. #10 Osteoarthritis. #11 Anxiety/depression. Plan: The patient was seen and evaluated by Dr. Vogt. We did consider bronchoscopy with BAL however the patient is quite a bit improved today as compared to yesterday. We'll continue with the current treatment plan. Increase her activity as tolerated. We'll continue to follow. I, the cosigning physician, performed a history & physical examination of the patient. Lungs sounds with few scattered rhonchi, crackles in the bilateral bases left greater than right. Maintaining good O2 saturations in the 90s on room air. I discussed the assessment and plan of care with my nurse practitioner, Rosario Yanes. I attest to the above note as dictated by her.
[2019-02-28 11:28] LABS: Basophils % (A) 0 %; Eosinophils # (A) 0.1 k/uL (0-0.7); Eosinophils % (A) 1 %; HGB 10.1 gm/dL (11.4-16.0); Hypochromasia Moderate; Lymphocytes # (A) 0.5 k/uL (1.0-4.8); Lymphocytes % (A) 3 %; MCH 28.8 pg (25.0-35.0); MCHC 31.5 g/dL (31.0-37.0); MCV 91.4 fL (80.0-100.0); Mean Platelet Volume 8.9; Monocytes # (A) 0.5 k/uL (0-1.0); Monocytes % (A) 3 %; Neutrophils # (A) 14.6 k/uL (1.3-7.7); Neutrophils % (A) 93 %; Platelet Count 346 k/uL (150-450); RDW 15.5 % (11.5-15.5); WBC 15.7 k/uL (3.8-10.6)
[2019-02-28 11:47] LABS: Glucose,Whole Blood 277 mg/dL (75-99)
[2019-02-28 11:55] LABS: Calcium 9.7 mg/dL (8.4-10.2); Potassium 4.1 mmol/L (3.5-5.1)
[2019-02-28] MEDS: POTASSIUM CHLORIDE ER 10 MEQ TAB.ER.PRT PO SCH (12:44)
[2019-02-28 16:47] LABS: Glucose,Whole Blood 181 mg/dL (75-99)
[2019-02-28 19:02] LABS: Glucose,Whole Blood 204 mg/dL (75-99)
--- NOTE | 2019-03-01 00:03 | P.PN ---
Subjective Progress Note Date: 02/27/19 Principal diagnosis: Acute moderate persistent asthma exacerbation Patient is a 83-year-old female with a known history of atrial fibrillation on anticoagulation, permanent pacemaker placement, asthma/COPD, hypertension, hyperlipidemia, GERD, cardiac catheterization in 2010 with no PCI, and multiple other medical problems, recent pneumonia about 2 weeks ago, came to ER with co mplaints of shortness of breath 1 day duration. Patient has been having cough and yellowish sputum production. Patient has been having symptoms for the past 2 weeks and got worse and his yesterday. Patient felt clammy and cold. Subjective fevers. Patient also felt chest soreness/left-sided chest pain aggravated with cough. Patient presents to ER with worsening dyspnea. Denied any leg swelling. No nausea vomiting or abdominal pain or diarrhea. Patient is not on home oxygen. Patient does not have history of smoking. Patient follows with Dr. Malone as an outpatient. Chest x-ray showed mild cardiomegaly, patchy posterior left basilar opacity could represent atelectasis or developing infiltrate. Follow-up recommended to assess. WBC 27.5, lactic acid 2.2, BNP 6190. EKG showed normal sinus rhythm. Pulse ox 93% on 2 L nausea cannula 02/26/2019 Patient says that she is feeling better today. He has some exertional dyspnea. Leukocytosis is likely due to steroids and pneumonia. Patient is being continued on IV steroids, breathing treatments and antibiotics. No fever no chills. No chest pain or worsening shortness of breath. No nausea vomiting or diarrhea. 02/27/2019 Patient says that she be slightly better compared to yesterday. Not at baseline. Currently be continued on antibiotics, IV steroids and breathing treatments. Still having significant leukocytosis. Otherwise able to get up and walk to the bathroom today. No nausea vomiting or abdominal pain. No fever no chills. No other acute overnight issues. Patient is currently sitting in the chair comfortably Current medications reviewed. Objective - Vital Signs Vital signs: Vital Signs Temp 97.7 F 02/27/19 21:00 Pulse 83 02/27/19 21:00 Resp 18 02/27/19 21:00 BP 139/78 02/27/19 21:00 Pulse Ox 94 L 02/27/19 21:00 Intake & Output 02/27/19 02/27/19 02/28/19 06:59 18:59 06:59 Intake Total 1189 2029 Balance 1189 2029 Intake: Intake, IV Titration 600 350 Amount Cefepime 2 gm In Sodium 100 Chloride 0.9% 100 ml @ 200 mls/hr IVPB Q12HR [facility] Rx#:[id number] Sodium Chloride 0.9% 1, 600 000 ml @ 75 mls/hr IV . [id number] [facility] Rx#:[id number] Vancomycin 1,000 mg In 250 Sodium Chloride 0.9% 250 ml @ 125 mls/hr IVPB Q16H [facility] Rx#:[id number] Oral 590 1680 Other: Voiding Method Toilet Toilet # Voids 2 6 1 - Exam PHYSICAL EXAMINATION: Patient is lying in the bed comfortably, no acute distress, awake alert and oriented.. HEENT: Normocephalic. Neck is supple. Pupils reactive. Nostrils clear. Oral cavity is moist. Ears reveal no drainage. Neck reveals no JVD, carotid bruits, or thyromegaly. CHEST EXAMINATION: Trachea is central. Symmetrical expansion. Minimal basilar crackles. Mild expiratory wheeze.. CARDIAC: Normal S1, S2 with no gallops. No murmurs ABDOMEN: Soft. Bowel sounds normal. No organomegaly. No abdominal bruits. Extremities: reveal no edema. No clubbing or cyanosis Neurologically awake, alert, oriented x3 with well-coordinated movements. No focal deficits noted Skin: No rash or skin lesions. Psychiatric: Coperative. Nonsuicidal Musculoskeletal: No joint swelling or deformity. Normal range of motion. - Labs CBC & Chem 7: 02/28/19 05:34 02/28/19 05:34 Labs: Abnormal Lab Results - Last 24 Hours (Table) 02/27/19 02/27/19 02/27/19 Range/Units 07:03 07:23 07:23 WBC 27.6 H (3.8-10.6) k/uL RBC 3.56 L (3.80-5.40) m/uL Hgb 10.1 L (11.4-16.0) gm/dL Hct 32.9 L (34.0-46.0) % MCHC 30.8 L (31.0-37.0) g/dL RDW 15.6 H (11.5-15.5) % Neutrophils # (Manual) 26.70 H (1.3-7.7) k/uL Lymphocytes # (Manual) 0.55 L (1.0-4.8) k/uL Chloride 110 H (98-107) mmol/L Carbon Dioxide 21 L (22-30) mmol/L BUN 26 H (7-17) mg/dL Glucose 206 H (74-99) mg/dL POC Glucose (mg/dL) 222 H (75-99) mg/dL 02/27/19 02/27/19 02/27/19 Range/Units 11:58 17:12 20:33 WBC (3.8-10.6) k/uL RBC (3.80-5.40) m/uL Hgb (11.4-16.0) gm/dL Hct (34.0-46.0) % MCHC (31.0-37.0) g/dL RDW (11.5-15.5) % Neutrophils # (Manual) (1.3-7.7) k/uL Lymphocytes # (Manual) (1.0-4.8) k/uL Chloride (98-107) mmol/L Carbon Dioxide (22-30) mmol/L BUN (7-17) mg/dL Glucose (74-99) mg/dL POC Glucose (mg/dL) 200 H 198 H 290 H (75-99) mg/dL Microbiology - Last 24 Hours (Table) 02/25/19 11:18 Blood Culture - Preliminary Blood No Growth after 48 hours Assessment and Plan Assessment: Left basilar pneumonia. Recent hospital admission, we'll continue with vancomycin and cefepime. Acute moderate persistent asthma with exacerbation secondary to above Significant leukocytosis at 27.5 Chronic CHF with diastolic dysfunction. BNP is elevated but is in the same range as previous hospitalizations. Diabetes type 2 [id number] Paroxysmal atrial fibrillation. On anticoagulation with Eliquis and also on amiodarone. 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 History of VATS due to left fibrotic lung changes Plan: Patient will be converted on antibiotics in the form of vancomycin and cefepime. 1 dose of azithromycin was given in the ER as well. Continue with home blood pressure medications with holding parameters. Follow blood cultures and repeat lactic acid level. Follow-up CBC and BMP tomorrow. Pulmonary is on board.. Continue with IV steroids and DuoNeb's. Follow up closely. Further recommendations based on the clinical course. Time with Patient: Greater than 30
--- NOTE | 2019-03-01 00:05 | P.PN ---
Subjective Progress Note Date: 02/28/19 Principal diagnosis: Acute moderate persistent asthma exacerbation Patient is a 83-year-old female with a known history of atrial fibrillation on anticoagulation, permanent pacemaker placement, asthma/COPD, hypertension, hyperlipidemia, GERD, cardiac catheterization in 2010 with no PCI, and multiple other medical problems, recent pneumonia about 2 weeks ago, came to ER with co mplaints of shortness of breath 1 day duration. Patient has been having cough and yellowish sputum production. Patient has been having symptoms for the past 2 weeks and got worse and his yesterday. Patient felt clammy and cold. Subjective fevers. Patient also felt chest soreness/left-sided chest pain aggravated with cough. Patient presents to ER with worsening dyspnea. Denied any leg swelling. No nausea vomiting or abdominal pain or diarrhea. Patient is not on home oxygen. Patient does not have history of smoking. Patient follows with Dr. Malone as an outpatient. Chest x-ray showed mild cardiomegaly, patchy posterior left basilar opacity could represent atelectasis or developing infiltrate. Follow-up recommended to assess. WBC 27.5, lactic acid 2.2, BNP 6190. EKG showed normal sinus rhythm. Pulse ox 93% on 2 L nausea cannula 02/26/2019 Patient says that she is feeling better today. He has some exertional dyspnea. Leukocytosis is likely due to steroids and pneumonia. Patient is being continued on IV steroids, breathing treatments and antibiotics. No fever no chills. No chest pain or worsening shortness of breath. No nausea vomiting or diarrhea. 02/27/2019 Patient says that she be slightly better compared to yesterday. Not at baseline. Currently be continued on antibiotics, IV steroids and breathing treatments. Still having significant leukocytosis. Otherwise able to get up and walk to the bathroom today. No nausea vomiting or abdominal pain. No fever no chills. No other acute overnight issues. Patient is currently sitting in the chair comfortably. 02/28/2019 Procedure persistent is a comfortably. No complains of chest pain or shortness of breath. Breathing status is improving to baseline. Leukocytosis improved with WBC count 15.7 today. No complaints of fever or chills. Encouraged ambulation and no other acute overnight issues. Anticipate discharge in next 24 hours. Pulmonary is on board. Current medications reviewed. Objective - Vital Signs Vital signs: Vital Signs Temp 97.8 F 02/28/19 13:00 Pulse 76 02/28/19 19:42 Resp 16 02/28/19 16:00 BP 118/68 02/28/19 13:00 Pulse Ox 96 02/28/19 19:29 Intake & Output 02/28/19 02/28/19 03/01/19 06:59 18:59 06:59 Intake Total 240 Balance 240 Intake: Oral 240 Other: Voiding Method Toilet Toilet # Voids 1 3 - Exam PHYSICAL EXAMINATION: Patient is lying in the bed comfortably, no acute distress, awake alert and oriented.. HEENT: Normocephalic. Neck is supple. Pupils reactive. Nostrils clear. Oral cavity is moist. Ears reveal no drainage. Neck reveals no JVD, carotid bruits, or thyromegaly. CHEST EXAMINATION: Trachea is central. Symmetrical expansion. Minimal basilar crackles. Improved wheezing CARDIAC: Normal S1, S2 with no gallops. No murmurs ABDOMEN: Soft. Bowel sounds normal. No organomegaly. No abdominal bruits. Extremities: reveal no edema. No clubbing or cyanosis Neurologically awake, alert, oriented x3 with well-coordinated movements. No focal deficits noted Skin: No rash or skin lesions. Psychiatric: Coperative. Nonsuicidal Musculoskeletal: No joint swelling or deformity. Normal range of motion. - Labs CBC & Chem 7: 02/28/19 05:34 02/28/19 05:34 Labs: Abnormal Lab Results - Last 24 Hours (Table) 02/28/19 02/28/19 02/28/19 Range/Units 05:34 05:34 06:58 WBC 15.7 H (3.8-10.6) k/uL RBC 3.50 L (3.80-5.40) m/uL Hgb 10.1 L (11.4-16.0) gm/dL Hct 32.0 L (34.0-46.0) % Neutrophils # 14.6 H (1.3-7.7) k/uL Lymphocytes # 0.5 L (1.0-4.8) k/uL Chloride 108 H (98-107) mmol/L BUN 31 H (7-17) mg/dL Glucose 228 H (74-99) mg/dL POC Glucose (mg/dL) 221 H (75-99) mg/dL 02/28/19 02/28/19 02/28/19 Range/Units 11:45 16:45 19:01 WBC (3.8-10.6) k/uL RBC (3.80-5.40) m/uL Hgb (11.4-16.0) gm/dL Hct (34.0-46.0) % Neutrophils # (1.3-7.7) k/uL Lymphocytes # (1.0-4.8) k/uL Chloride (98-107) mmol/L BUN (7-17) mg/dL Glucose (74-99) mg/dL POC Glucose (mg/dL) 277 H 181 H 204 H (75-99) mg/dL Microbiology - Last 24 Hours (Table) 02/25/19 11:18 Blood Culture - Preliminary Blood No Growth after 72 hours Assessment and Plan Assessment: Left basilar pneumonia. Recent hospital admission, we'll continue with vancomycin and cefepime. Acute moderate persistent asthma with exacerbation secondary to above Significant leukocytosis at 27.5 Chronic CHF with diastolic dysfunction. BNP is elevated but is in the same range as previous hospitalizations. Diabetes type 2 [id number] Paroxysmal atrial fibrillation. On anticoagulation with Eliquis and also on amiodarone. 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 History of VATS due to left fibrotic lung changes Plan: Patient will be converted on antibiotics in the form of vancomycin and cefepime. 1 dose of azithromycin was given in the ER as well. Continue with home blood pressure medications with holding parameters. Follow blood cultures and repeat lactic acid level. Follow-up CBC and BMP tomorrow. Pulmonary is on board.. Continue with IV steroids and DuoNeb's. Follow up closely. Further recommendations based on the clinical course. Time with Patient: Greater than 30
[2019-03-01] MEDS: methylPREDNISolone SOD SUCCI 125 MG/2 ML VIAL IV SCH (05:09)
[2019-03-01] MEDS: SODIUM CHLORIDE 0.9% 1,000 ML IV SCH (05:11)
[2019-03-01 05:19] VITALS: TEMP 98.2
[2019-03-01 06:58] LABS: Glucose,Whole Blood 202 mg/dL (75-99)
[2019-03-01] MEDS: IPRATROPIUM-ALBUTEROL 3 ML NEB INHALATION SCH ×3 (08:09→15:45)
[2019-03-01] MEDS: SYMBICORT 160-4.5 MCG INHALER INHALATION SCH (08:15)
[2019-03-01] MEDS: INSULIN ASPART (NovoLOG) 100 UNIT/ML VIAL SQ SCH ×2 (08:53→12:11)
[2019-03-01] MEDS: CHOLECALCIFEROL 1,000 UNIT TAB PO SCH (09:04)
[2019-03-01] MEDS: FUROSEMIDE 40 MG TAB PO SCH (09:04)
[2019-03-01] MEDS: AMIODARONE 100 MG TAB PO SCH (09:04)
[2019-03-01] MEDS: PANTOPRAZOLE 40 MG TABLET PO SCH (09:04)
[2019-03-01] MEDS: APIXABAN 5 MG TAB PO SCH (09:04)
[2019-03-01] MEDS: CYANOCOBALAMIN 500 MCG TAB PO SCH (09:04)
[2019-03-01] MEDS: VERAPAMIL 80 MG TAB PO SCH (09:05)
[2019-03-01] MEDS: POTASSIUM CHLORIDE ER 10 MEQ TAB.ER.PRT PO SCH (09:05)
[2019-03-01] MEDS: NADOLOL 20 MG TAB PO SCH (09:05)
[2019-03-01] MEDS: GLIMEPIRIDE 2 MG TAB PO SCH (09:05)
--- NOTE | 2019-03-01 09:54 | P.PN ---
Subjective Progress Note Date: 03/01/19 Principal diagnosis: Acute exacerbation of chronic moderate persistent bronchial asthma, complicated by basilar pneumonia left greater than right. This is a very pleasant 83-year-old female patient who follows with Dr. Farias as her primary care physician. She has history of atrial fibrillation anticoagulated with Eliquis, permanent pacemaker implantation, diabetes mellitus, gastroesophageal reflux disease, hypertension, hyperlipidemia, arthritis, osteoporosis, chronic anemia, anxiety/depression. She is a lifelong nonsmoker. She follows with Dr. Malone in our office for mild intermittent chronic bronchial asthma. Her FEV1 value 67% of predicted. She is maintained on Advair and Xopenex. She was admitted here directly 6 weeks ago for an exacerbation of her asthma. She been doing well until recently. She states she had been outside for 4 hours 3 days ago and it was kind of DL. At a graduation republic[employer]. The next day she woke up feeling shortness of breath, cough and congestion. Yesterday she was worse and presented here to the emergency room for the same. No fever, chills or night sweats. Yellow productive sputum. Chest x-ray revealed some retrocardiac density. She did have a T-max of 100.3 yesterday. Initial white count 27.5. Currently 38.1. Hemoglobin 9.4. Sodium 139. Creatinine 0.82. ProBNP 6190. She has been initiated on vancomycin and cefepime along with bronchodilators and IV Solu-Medrol. She is seen today in consultation on the regular medical floor. Currently sitting up at the bedside. Awake and alert in no acute distress. Breathing a bit easier today as compared to yesterday. Continues with a loose productive cough of yellow sputum. Currently afebrile. Hemodynamically stable. The patient is seen today 02/27/2019 in follow-up on the regular medical floor. She is currently sitting up in a chair at the bedside. Awake and alert in no acute distress. She did have some dyspnea earlier this morning with some cough and congestion. She is receiving DuoNeb inhalations, Symbicort, IV Solu-Medrol. She is on antibiotics in the form of vancomycin and cefepime. CT angiogram ruled out pulmonary embolism. There was however extensive patchy consolidation and atelectasis at the lung bases more so on the left lower lobe, suspect inflammatory. Ongoing extensive interstitial pulmonary infiltrates consistent with fibrosis. She is maintaining good O2 saturations in the mid 90s on 2 L/m per nasal cannula. She's been afebrile. Hemodynamically stable. White count 27.6. Hemoglobin 10.1. Creatinine 0.81. Blood culture reveals no growth. Patient is seen today 02/28/2019 in follow-up on the regular medical floor. She is awake and alert in no acute distress. She is breathing quite a bit better today as compared to yesterday. Nearly back to her baseline. She continues with loose nonproductive cough. She is maintaining good O2 saturations in the mid 90s on room air. She's been afebrile. Hemodynamically stable. Blood culture reveals no growth. She remains on DuoNeb inhalations, Symbicort, IV Solu-Medrol. Antibiotics in the form of vancomycin and cefepime. The patient is seen today 03/01/2019 in follow-up on the regular medical floor. Currently sitting up at the bedside. Awake and alert in no acute distress. Maintaining good O2 saturations in the 90s on room air. No worsening shortness of breath, cough or congestion. Blood culture reveals no growth. Creatinine 1.01. Objective - Vital Signs Vital signs: Vital Signs Temp 98.2 F 03/01/19 05:00 Pulse 80 03/01/19 08:22 Resp 18 03/01/19 05:00 BP 120/67 03/01/19 05:00 Pulse Ox 96 03/01/19 05:00 Intake & Output 02/28/19 03/01/19 03/01/19 18:59 06:59 18:59 Intake Total 240 350 Balance 240 350 Intake: Intake, IV Titration 350 Amount Cefepime 2 gm In Sodium 100 Chloride 0.9% 100 ml @ 200 mls/hr IVPB Q12HR [facility] Rx#:[id number] Vancomycin 1,000 mg In 250 Sodium Chloride 0.9% 250 ml @ 125 mls/hr IVPB Q16H [facility] Rx#:[id number] Oral 240 Other: Voiding Method Toilet Toilet # Voids 3 1 - Exam GENERAL EXAM: Pleasant 83-year-old female patient. Alert, comfortable in no apparent distress. On room air. HEAD: Normocephalic. EYES: Normal reaction of pupils, equal size. NOSE: Clear with pink turbinates. THROAT: No erythema or exudates. NECK: No masses, no JVD. CHEST: No chest wall deformity. LUNGS: Equal air entry with few scattered rhonchi, crackles in the bases left greater than right. CVS: S1 and S2 normal with no audible murmur, regular rhythm. ABDOMEN: No hepatosplenomegaly, normal bowel sounds, no guarding or rigidity. SPINE: No scoliosis or deformity SKIN: No rashes CENTRAL NERVOUS SYSTEM: No focal deficits, tone is normal in all 4 extremities. EXTREMITIES: There is no peripheral edema. No clubbing, no cyanosis. Peripheral pulses are intact. - Labs CBC & Chem 7: 02/28/19 05:34 03/01/19 08:40 Labs: Abnormal Lab Results - Last 24 Hours (Table) 02/28/19 02/28/19 02/28/19 Range/Units 05:34 05:34 11:45 WBC 15.7 H (3.8-10.6) k/uL RBC 3.50 L (3.80-5.40) m/uL Hgb 10.1 L (11.4-16.0) gm/dL Hct 32.0 L (34.0-46.0) % Neutrophils # 14.6 H (1.3-7.7) k/uL Lymphocytes # 0.5 L (1.0-4.8) k/uL Chloride 108 H (98-107) mmol/L BUN 31 H (7-17) mg/dL Glucose 228 H (74-99) mg/dL POC Glucose (mg/dL) 277 H (75-99) mg/dL 02/28/19 02/28/19 03/01/19 Range/Units 16:45 19:01 06:52 WBC (3.8-10.6) k/uL RBC (3.80-5.40) m/uL Hgb (11.4-16.0) gm/dL Hct (34.0-46.0) % Neutrophils # (1.3-7.7) k/uL Lymphocytes # (1.0-4.8) k/uL Chloride (98-107) mmol/L BUN (7-17) mg/dL Glucose (74-99) mg/dL POC Glucose (mg/dL) 181 H 204 H 202 H (75-99) mg/dL Microbiology - Last 24 Hours (Table) 02/25/19 11:18 Blood Culture - Preliminary Blood No Growth after 72 hours Assessment and Plan Assessment: Impression: #1 Acute exacerbation of chronic moderate persistent bronchial asthma, complicated by bibasilar pneumonia left greater than right. #2 Leukocytosis secondary to above. #3 Previous history of VATS procedure on the left lung in 2010 with chronic fibrotic changes. #4 Atrial fibrillation, anticoagulated with Eliquis. #5 History of congestive heart failure. #6 Diabetes mellitus. #7 Gastroesophageal reflux disease. #8 Hyperlipidemia. #9 Hypertension. #10 Osteoarthritis. #11 Anxiety/depression. Plan: The patient was seen and evaluated by Dr. Vogt. She is cleared for discharge from the pulmonary standpoint. Complete prednisone burst and taper. Complete course of antibiotics. Follow up with Dr. Malone in our office in 1-2 weeks' time. She is however encouraged to call sooner with any recurrence of symptoms or other questions or concerns. I, the cosigning physician, performed a history & physical examination of the patient. Lungs sounds with few scattered rhonchi, crackles in the bilateral bases left greater than right. Maintaining good O2 saturations in the 90s on ro om air. I discussed the assessment and plan of care with my nurse practitioner, Rosario Yanes. I attest to the above note as dictated by her.
[2019-03-01] MEDS: CEFEPIME 2 GM in SODIUM CHLORIDE 0.9% 100 ML IVPB SCH (10:13)
[2019-03-01 11:20] LABS: Glucose,Whole Blood 205 mg/dL (75-99)
[2019-03-01] MEDS ORDERED: predniSONE 50 MG TAB PO SCH (11:45)
[2019-03-01 12:22] VITALS: BP 155/81; PULSE 69; RESP 16
[2019-03-01] MEDS ORDERED: VANCOMYCIN TROUGH DUE 1 EACH MISC MISCELLANE ONE (13:00)
== END 2019-03-01 15:54 | disposition home health service (06) | DRG 871 ==
LOC: EC 10:16 → 3NMEDONC 13:28 → OBSVTOIN 02-26 13:22
PROVIDERS: ADMIT Internal Medicine; ATTEND Internal Medicine
DX: A41.50 Gram-negative sepsis, unspecified (principal); J15.6 Pneumonia due to other Gram-negative bacteria; J96.01 Acute respiratory failure with hypoxia; J44.1 Chronic obstructive pulmonary disease with (acute) exacerbation; J44.0 Chronic obstructive pulmonary disease with (acute) lower respiratory infection; I50.30 Unspecified diastolic (congestive) heart failure; J45.41 Moderate persistent asthma with (acute) exacerbation; Y95 Nosocomial condition; E11.9 Type 2 diabetes mellitus without complications; E78.5 Hyperlipidemia, unspecified; F32.9 Major depressive disorder, single episode, unspecified; F41.9 Anxiety disorder, unspecified; I11.0 Hypertensive heart disease with heart failure; K21.9 Gastro-esophageal reflux disease without esophagitis; I27.29 Other secondary pulmonary hypertension; M15.9 Polyosteoarthritis, unspecified; I48.0 Paroxysmal atrial fibrillation; M81.0 Age-related osteoporosis without current pathological fracture; T38.0X5A Adverse effect of glucocorticoids and synthetic analogues, initial encounter; D72.829 Elevated white blood cell count, unspecified; D64.9 Anemia, unspecified; I25.2 Old myocardial infarction; Z79.01 Long term (current) use of anticoagulants; Z79.51 Long term (current) use of inhaled steroids; Z79.899 Other long term (current) drug therapy; Z88.5 Allergy status to narcotic agent; Z88.8 Allergy status to other drugs, medicaments and biological substances; Z86.19 Personal history of other infectious and parasitic diseases; Z91.81 History of falling; Z98.42 Cataract extraction status, left eye; Z98.41 Cataract extraction status, right eye; Z79.84 Long term (current) use of oral hypoglycemic drugs; Z80.3 Family history of malignant neoplasm of breast; Z95.0 Presence of cardiac pacemaker
CPT/HCPCS: 36415; 71045; 71046; 71275; 80048; 80053; 80202; 82565; 82803; 83605; 83735; 83880; 84484; 85025; 85610; 85730; 87040; 87070; 87205; 93005; 94640; 94760; 96365; 96366; 96367; 96375; 99291

== ENCOUNTER 2019-06-03 15:58 | Emergency (ER) | payer MEDICARE ==
[2019-06-03] MEDS ORDERED: MIDAZOLAM (PF) 2 MG/2 ML VIAL IV ONE ×2 (16:31→17:40)
[2019-06-03] MEDS ORDERED: METOCLOPRAMIDE 5 MG/ML 2 ML VIAL IVP STA (16:32)
[2019-06-03] MEDS ORDERED: diphenhydrAMINE 50 MG/ML 1 ML VIAL IVP STA (16:33)
--- NOTE | 2019-06-03 16:41 | ED ---
General Adult HPI - General Chief complaint: Nausea/Vomiting/Diarrhea Stated complaint: Nausea, Vomiting Time Seen by Provider: 06/03/19 15:59 Source: patient, EMS Mode of arrival: EMS Limitations: no limitations - History of Present Illness Initial comments: Dictation was produced using [employer] dictation software. please excuse any gra mmatical, word or spelling errors. Chief Complaint: 84-year-old female presents with nausea and vomiting. History of Present Illness: His 84-year-old female presents with nausea and vomiting. She does complain by family member. Patient is a poor historian. According to family member patient was recently diagnosed with rotator cuff injury. She has significant left shoulder pain. She was given a prescription for Tylenol with codeine after she had an adverse reaction to [place] recently. Patient has been on Tylenol with codeine for the last 2 days. Today she took these medications on an empty stomach. Really after she began feeling very nauseous. She states that she feels unwell and is uncooperative and unwilling to provide detailed history at this time. His had multiple episodes of emesis. She does report that her pain is worse when lying flat. The ROS documented in this emergency department record has been reviewed and confirmed by me. Those systems with pertinent positive or negative responses have been documented in the HPI. All other systems are other negative and/or noncontributory. PHYSICAL EXAM: General Impression: Alert and oriented x3, acute distress secondary to nausea HEENT: Normocephalic atraumatic, extra-ocular movements intact, pupils equal and reactive to light bilaterally, dry mucous membranes Cardiovascular: Heart regular rate and rhythm, S1&S2 audible, no murmurs, rubs or gallops Chest: Lungs clear to auscultation bilaterally, no rhonchi, no wheeze, no rales Abdomen: Bowel sounds present, abdomen soft, non-tender, non-distended, no organomegaly Musculoskeletal: Pulses present and equal in all extremities, no peripheral edema Motor: no focal deficits noted Neurological: CN II-XII grossly intact, no focal motor or sensory deficits noted, mild nystagmus Skin: Intact with no visualized rashes ED course: 84 Year old female presents with chief complaint of severe nausea vomiting. Signs upon arrival are within acceptable limits.Laboratory evaluation obtained. Leukocytosis of 19.2 of uncertain significance likely secondary to stress. Hemoglobin stable at 9.9. Metabolic panel is unremarkable. Urinalysis shows 77 red blood cells however no signs of infection. Patient given multiple antiemetics and anti-vertiginous medications with control of symptoms. Given leukocytosis and abdominal symptoms CT abdomen and pelvis was obtained. Patient had borderline dilated gallbladder and mild constipation. CT angios the head and neck was obtained to evaluate for vertebrobasilar insufficiency with no acute findings. Patient observed in emergency department for several hours with stable medical condition. Patient feels much improved. Patient's symptoms likely secondary to adverse effects from opiates. Patient told to refrain from taking any opiate medications at this time. Patient given arm sling and Lidoderm patch. She is told to follow-up with orthopedic surgeon for management of pain. Patient understandable and agreeable to disposition. Repeat abdominal examination was performed on patient. She has no right upper quadrant tenderness or epigastric abdominal pain. Patient's abdominal exam is benign. Concern for acute cholecystitis or pancreatitis. EKG interpretation: Ventricular rate 61, sinus rhythm,. Interval to 20, QS 114, QTc 497. No NM prolongation, no QTC prolongation, no ST or T-wave changes noted. EKG compared to 06/03/2090 with no acute changes. - Related Data Home Medications Medication Instructions Recorded Confirmed Apixaban [Eliquis] 5 mg PO BID 11/24/14 06/03/19 Potassium Chloride [Klor-Con 10] 10 meq PO DAILY 11/26/14 06/03/19 Glimepiride [Amaryl] 2 mg PO BID 06/07/15 06/03/19 Albuterol Sulfate [Proair Hfa] 2 puff INHALATION RT-Q4H PRN 12/13/15 06/03/19 Furosemide [Lasix] 40 mg PO DAILY 05/20/16 06/03/19 Nadolol [Corgard] 40 mg PO DAILY 05/20/16 06/03/19 Cyanocobalamin (Vitamin B-12) 1,000 mcg PO DAILY 09/24/17 06/03/19 [Vitamin B-12] Amiodarone [Cordarone] 100 mg PO DAILY 11/27/17 06/03/19 Levalbuterol Nebulized [Xopenex 1.25 mg INHALATION RT-BID PRN 06/10/18 06/03/19 Nebulized] Omeprazole 40 mg PO DAILY 06/10/18 06/03/19 Verapamil [Isoptin] 80 mg PO BID 06/10/18 06/03/19 Acetaminophen-Codeine 300-30mg 1 - 2 tab PO Q4-6H PRN 06/03/19 06/03/19 [Tylenol w/codeine #3] Baclofen [Lioresal] 10 - 20 mg PO Q8H PRN 06/03/19 06/03/19 Clotrimazole/Betamethasone Dip 1 applic TOPICAL BID PRN 06/03/19 06/03/19 [Lotrisone Cream] Cyanocobalamin [Vitamin B-12 1,000 mcg SQ Q30D 06/03/19 06/03/19 Injection] Fluticasone/Salmeterol [Advair 1 puff INHALATION RT-BID 06/03/19 06/03/19 500-50 Diskus] HYDROcodone/APAP 5-325MG [[place] 5] 1 - 2 tab PO Q6H PRN 06/03/19 06/03/19 Magnesium Hydroxide [Milk of 2,400 mg PO DAILY PRN 06/03/19 06/03/19 Magnesia] Meclizine [Antivert] 12.5 mg PO TID PRN 06/03/19 06/03/19 Allergies Allergy/AdvReac Type Severity Reaction Status Date / Time diltiazem Allergy Itching Verified 06/03/19 16:35 morphine AdvReac Confusion Verified 06/03/19 16:35 Review of Systems ROS Statement: Those systems with pertinent positive or pertinent negative responses have been documented in the HPI. ROS Other: All systems not noted in ROS Statement are negative. Past Medical History Past Medical History: Atrial Fibrillation, Asthma, Chest Pain / Angina, Heart Failure, COPD, Diabetes Mellitus, GERD/Reflux, Hyperlipidemia, Hypertension, Myocardial Infarction ([place]), Osteoarthritis (OA), Pneumonia Additional Past Medical History / Comment(s): Afib RVR, NIDDM type II, arthritis multiple joints, osteoporosis, chronic anemia, falls, 2013 shingelles Last Myocardial Infarction Date:: 07/16/11 History of Any Multi-Drug Resistant Organisms: None Reported Past Surgical History: Appendectomy, Breast Surgery, Heart Catheterization, Pacemaker, Tubal Ligation Additional Past Surgical History / Comment(s): 02/2011 cardiac cath-normal, benign lumpectomy bronchoscopy, EGD/colonoscopy, bilateral cataract removals, 2010 VATS L lung, falls. Past Anesthesia/Blood Transfusion Reactions: No Reported Reaction Additional Past Anesthesia/Blood Transfusion Reaction / Comment(s): Pt has received blood in past without reaction Type of Cardiac Device: Permanent Pacemaker Device Placement Date:: NOVEMBER 28 2017 Past Psychological History: Anxiety, Depression Smoking Status: Never smoker Past Alcohol Use History: None Reported Past Drug Use History: None Reported - Past Family History Sister(s) Family Medical History: Cancer Additional Family Medical History / Comment(s): breast CA Mother Family Medical History: No Reported History Additional Family Medical History / Comment(s): from car accident no other hx known Father Family Medical History: No Reported History Additional Family Medical History / Comment(s): committed suicide Daughter(s) Family Medical History: Cancer Additional Family Medical History / Comment(s): breast [place] General Exam Limitations: no limitations Course Vital Signs 06/03/19 15:59 Temperature 98.7 F Pulse Rate 87 Respiratory 22 Rate Blood Pressure 119/45 O2 Sat by Pulse 98 Oximetry Medical Decision Making - Lab Data Result diagrams: 06/03/19 17:03 06/03/19 17:03 Lab Results 06/03/19 06/03/19 06/03/19 Range/Units 16:47 17:03 17:03 WBC 19.2 H (3.8-10.6) k/uL RBC 3.63 L (3.80-5.40) m/uL Hgb 9.9 L (11.4-16.0) gm/dL Hct 31.3 L (34.0-46.0) % MCV 86.1 (80.0-100.0) fL MCH 27.3 (25.0-35.0) pg MCHC 31.7 (31.0-37.0) g/dL RDW 14.9 (11.5-15.5) % Plt Count 357 (150-450) k/uL Neutrophils % 87 % Lymphocytes % 4 % Monocytes % 7 % Eosinophils % 1 % Basophils % 1 % Neutrophils # 16.7 H (1.3-7.7) k/uL Lymphocytes # 0.8 L (1.0-4.8) k/uL Monocytes # 1.3 H (0-1.0) k/uL Eosinophils # 0.2 (0-0.7) k/uL Basophils # 0.1 (0-0.2) k/uL Sodium 137 (137-145) mmol/L Potassium 3.5 (3.5-5.1) mmol/L Chloride 100 (98-107) mmol/L Carbon Dioxide 27 (22-30) mmol/L Anion Gap 10 mmol/L BUN 20 H (7-17) mg/dL Creatinine 0.97 (0.52-1.04) mg/dL Est GFR (CKD-EPI)AfAm 62 (>60 ml/min/1.73 sqM) Est GFR (CKD-EPI)NonAf 54 (>60 ml/min/1.73 sqM) Glucose 151 H (74-99) mg/dL POC Glucose (mg/dL) 147 H (75-99) mg/dL POC Glu Senior Systems Analyst ID Jordy Costello Calcium 9.1 (8.4-10.2) mg/dL Magnesium 1.7 (1.6-2.3) mg/dL Urine Color Urine Appearance (Clear) Urine pH (5.0-8.0) Ur Specific [place] (1.001-1.035) Urine Protein (Negative) Urine Glucose (UA) (Negative) Urine Ketones (Negative) Urine Blood (Negative) Urine Nitrite (Negative) Urine Bilirubin (Negative) Urine Urobilinogen (<2.0) mg/dL Ur Leukocyte Esterase (Negative) Urine RBC (0-5) /hpf Urine Bacteria (None) /hpf Hyaline Casts (0-2) /lpf Urine Mucus (None) /hpf 06/03/19 Range/Units 17:50 WBC (3.8-10.6) k/uL RBC (3.80-5.40) m/uL Hgb (11.4-16.0) gm/dL Hct (34.0-46.0) % MCV (80.0-100.0) fL MCH (25.0-35.0) pg MCHC (31.0-37.0) g/dL RDW (11.5-15.5) % Plt Count (150-450) k/uL Neutrophils % % Lymphocytes % % Monocytes % % Eosinophils % % Basophils % % Neutrophils # (1.3-7.7) k/uL Lymphocytes # (1.0-4.8) k/uL Monocytes # (0-1.0) k/uL Eosinophils # (0-0.7) k/uL Basophils # (0-0.2) k/uL Sodium (137-145) mmol/L Potassium (3.5-5.1) mmol/L Chloride (98-107) mmol/L Carbon Dioxide (22-30) mmol/L Anion Gap mmol/L BUN (7-17) mg/dL Creatinine (0.52-1.04) mg/dL Est GFR (CKD-EPI)AfAm (>60 ml/min/1.73 sqM) Est GFR (CKD-EPI)NonAf (>60 ml/min/1.73 sqM) Glucose (74-99) mg/dL POC Glucose (mg/dL) (75-99) mg/dL POC Glu Senior Systems Analyst ID Calcium (8.4-10.2) mg/dL Magnesium (1.6-2.3) mg/dL Urine Color Light Yellow Urine Appearance Clear (Clear) Urine pH 6.5 (5.0-8.0) Ur Specific [place] 1.009 (1.001-1.035) Urine Protein Negative (Negative) Urine Glucose (UA) Negative (Negative) Urine Ketones Negative (Negative) Urine Blood Negative (Negative) Urine Nitrite Negative (Negative) Urine Bilirubin Negative (Negative) Urine Urobilinogen <2.0 (<2.0) mg/dL Ur Leukocyte Esterase Small H (Negative) Urine RBC 77 H (0-5) /hpf Urine Bacteria Occasional H (None) /hpf Hyaline Casts 5 H (0-2) /lpf Urine Mucus Rare H (None) /hpf Disposition Clinical Impression: Nausea Disposition: HOME SELF-CARE Condition: Good Instructions (If sedation given, give patient instructions): Acute Nausea and Vomiting (ED) Is patient prescribed a controlled substance at d/c from ED?: No Referrals: Royal Farias MD [Primary Care Provider] - 1-2 days Time of Disposition: 19:37
[2019-06-03 16:59] LABS: Glucose,Whole Blood 147 mg/dL (75-99)
[2019-06-03 17:28] LABS: Basophils # (A) 0.1 k/uL (0-0.2); Basophils % (A) 1 %; Eosinophils # (A) 0.2 k/uL (0-0.7); Eosinophils % (A) 1 %; HCT 31.3 % (34.0-46.0); HGB 9.9 gm/dL (11.4-16.0); Lymphocytes # (A) 0.8 k/uL (1.0-4.8); Lymphocytes % (A) 4 %; MCH 27.3 pg (25.0-35.0); MCHC 31.7 g/dL (31.0-37.0); MCV 86.1 fL (80.0-100.0); Mean Platelet Volume 7.1; Monocytes # (A) 1.3 k/uL (0-1.0); Monocytes % (A) 7 %; Neutrophils # (A) 16.7 k/uL (1.3-7.7); Neutrophils % (A) 87 %; Platelet Count 357 k/uL (150-450); RBC 3.63 m/uL (3.80-5.40); RDW 14.9 % (11.5-15.5); WBC 19.2 k/uL (3.8-10.6)
[2019-06-03 17:34] LABS: Calcium 9.1 mg/dL (8.4-10.2); Magnesium 1.7 mg/dL (1.6-2.3); Potassium 3.5 mmol/L (3.5-5.1)
[2019-06-03 18:03] LABS: Appearance,Urine Clear (Clear); Bacteria,Urine Occasional /hpf; Bilirubin,Urine Negative (Negative); Blood,Urine Negative (Negative); Color,Urine Light Yellow; Glucose,Urine (UA) Negative (Negative); Hyaline Casts,Urine 5 /lpf (0-2); Ketones,Urine Negative (Negative); Leukocyte Esterase,Urine Small (Negative); Mucus,Urine Rare /hpf; Nitrite,Urine Negative (Negative); PH, Urine 6.5 (5.0-8.0); Protein,Urine Negative (Negative); RBC,Urine 77 /hpf (0-5); Specific Gravity,Urine 1.009 (1.001-1.035); Urobilinogen,Urine <2.0 mg/dL (<2.0)
--- NOTE | 2019-06-03 18:58 | CT ---
EXAMINATION TYPE: CT abdomen pelvis w con DATE OF EXAM: 06/03/2019 COMPARISON: 12/14/2014 HISTORY: Nausea, vomiting and diarhhea. Leukocytosis. CT DLP: 896.4 mGycm Automated exposure control for dose reduction was used. TECHNIQUE: Helical acquisition of images was performed from the lung bases through the pelvis. CONTRAST: Performed without Oral Contrast and with IV Contrast, patient injected with mL of Isovue 370. FINDINGS: There is some patchy atelectasis at the lung bases. Heart is enlarged. There is no pleural effusion. There is no pericardial effusion. Stomach is intact. Gallbladder is large and measures 4.3 cm. The bile ducts are not dilated. Liver sh ows no focal defect. There are small calcified splenic granulomata. There is no sign of pancreatic ma ss. There is no adrenal mass. Kidneys have normal size and contour. There is satisfactory contrast opacif ication. There is no hydronephrosis. There is no retroperitoneal adenopathy. Ureters are not dilated. Bladder distends smoothly. There is no inguinal hernia. There is no free fluid in the pelvis. There is mild retained large bowel fecal ma terial. Appendix not definitely seen. There is no mesenteric edema. There is no ascites or free air. There is no sign of a bowel obstructio n. There is a second-degree L5-S1 spondylolisthesis. There is L5 spondylolysis. There is no significant spinal stenosis. There is multilevel spondylotic changes in the lumbar spine. IMPRESSION: THERE IS SCARRING AND ATELECTASIS AT THE LUNG BASES UNCHANGED. CARDIOMEGALY UNCHANGED. BORDERLINE DIL ATED GALLBLADDER COULD RELATE TO GALLBLADDER DYSFUNCTION. THIS IS A CHANGE COMPARED TO OLD EXAM. MILD CONSTIPATION. STABLE SECOND-DEGREE L5-S1 SPONDYLOLISTHESIS. NO LARGE BOWEL FLUID SEEN TO SUGGEST ANY DIARRHEA.
--- NOTE | 2019-06-03 19:04 | CT ---
EXAMINATION TYPE: CT angio head neck DATE OF EXAM: 06/03/2019 HISTORY: Vertigo and neck pain. COMPARISON: None CT DLP: 1447.3 mGycm. Automated Exposure Control for Dose Reduction was Utilized. TECHNIQUE: CTA scan of the neck and brain is performed without and with IV Contrast, patient injecte d with 65 mL of Isovue 370, axial images are obtained, coronal and sagittal reformatted images are re viewed. Three-D reconstructed images are created on an independent workstation and reviewed. FINDINGS: Noncontrast images show some cerebral cortical atrophy. There is normal branching pattern of the great vessels at the aortic arch. Thoracic aorta is atheroma tous. There is no aneurysm or dissection. There is some pleural thickening and infiltrate in the left upper lobe left paraspinal region. There is bilateral arterial flow in the subclavian arteries. There is arterial flow in the common int ernal and external carotid arteries bilaterally. There is wide patency of the carotid artery bifurcat ions. There is arterial flow in the left vertebral artery. There is arterial flow in the right verteb ral artery. There is patency of the vertebrobasilar artery system. There is no evidence of carotid or vertebral artery aneurysm or dissection. There is arterial flow in the anterior middle and posterior cerebral arteries bilaterally. There is n ormal contrast opacification of the venous sinuses. New graft there is no evidence of intracranial ar terial stenosis. There is no evidence of intracranial aneurysm or neovascularity. There is no mass ef fect. IMPRESSION: Negative CT angiogram of the neck. Negative CT angiogram of the brain. left maxillary sinusitis noted. Patchy left upper lobe pleural thickening and infiltrate.
[2019-06-03] MEDS ORDERED: POLYETHYLENE GLYCOL 3350 17 GM POWD.PACK PO STA (19:34)
[2019-06-03] MEDS ORDERED: LIDOCAINE 5% PATCH TOPICAL STA (19:34)
[2019-06-03 20:21] VITALS: BP 143/52; PULSE 73; RESP 18; TEMP 97.6
== END 2019-06-03 20:20 | disposition home or self-care (01) ==
LOC: EC 15:58
DX: R11.2 Nausea with vomiting, unspecified (principal); M25.512 Pain in left shoulder; D72.829 Elevated white blood cell count, unspecified; K59.00 Constipation, unspecified; K82.8 Other specified diseases of gallbladder; I48.91 Unspecified atrial fibrillation; I20.9 Angina pectoris, unspecified; I11.0 Hypertensive heart disease with heart failure; I50.9 Heart failure, unspecified; K21.9 Gastro-esophageal reflux disease without esophagitis; M81.0 Age-related osteoporosis without current pathological fracture; I25.2 Old myocardial infarction; J44.9 Chronic obstructive pulmonary disease, unspecified; E11.9 Type 2 diabetes mellitus without complications; Z90.49 Acquired absence of other specified parts of digestive tract; Z95.0 Presence of cardiac pacemaker; Z98.51 Tubal ligation status; Z98.890 Other specified postprocedural states; Z79.01 Long term (current) use of anticoagulants; Z79.51 Long term (current) use of inhaled steroids; Z79.84 Long term (current) use of oral hypoglycemic drugs; Z79.899 Other long term (current) drug therapy; Z88.5 Allergy status to narcotic agent; Z88.8 Allergy status to other drugs, medicaments and biological substances
CPT/HCPCS: 36415; 93005; 80048; 83735; 85025; 81001; 87086; 70496; 70498; 74177; 99284; 96374; 96375 ×2; J1200; J2765; Q9967; J2250

== ENCOUNTER 2019-08-19 07:58 | Inpatient (IN) | payer MEDICARE ==
[2019-08-19] MEDS ORDERED: methylPREDNISolone SOD SUCCI 125 MG/2 ML VIAL IV STA (08:17)
[2019-08-19 08:19] LABS: Glucose,Whole Blood 141 mg/dL (75-99)
--- NOTE | 2019-08-19 08:26 | ED ---
SOB HPI - General Chief Complaint: Shortness of Breath Stated Complaint: SOB Time Seen by Provider: 08/19/19 08:11 Source: patient, EMS, RN notes reviewed Mode of arrival: EMS Limitations: no limitations - History of Present Illness Initial Comments: 84-year-old female presents emergency Department from home via EMS chief complaint of shortness of breath. She states that she's been having increasing symptoms last few days. She has mildly productive cough. She states that shortness breath is worsened with her breathing treatments are not helping at home she was given one by EMS which helped. Patient states she is having difficulty walking around without feeling short of breath. Patient denies any current chest pain mild tightness denies any recent weight gain or swelling of her lower extremities. She does have a history of A. fib, CHF, COPD. Patient has been no reported fever. Patient denies any current headache, dizziness, back pain. - Related Data Home Medications Medication Instructions Recorded Confirmed Apixaban [Eliquis] 5 mg PO BID 11/24/14 06/03/19 Potassium Chloride [Klor-Con 10] 10 meq PO DAILY 11/26/14 06/03/19 Glimepiride [Amaryl] 2 mg PO BID 06/07/15 06/03/19 Albuterol Sulfate [Proair Hfa] 2 puff INHALATION RT-Q4H PRN 12/13/15 06/03/19 Furosemide [Lasix] 40 mg PO DAILY 05/20/16 06/03/19 Nadolol [Corgard] 40 mg PO DAILY 05/20/16 06/03/19 Cyanocobalamin (Vitamin B-12) 1,000 mcg PO DAILY 09/24/17 06/03/19 [Vitamin B-12] Amiodarone [Cordarone] 100 mg PO DAILY 11/27/17 06/03/19 Levalbuterol Nebulized [Xopenex 1.25 mg INHALATION RT-BID PRN 06/10/18 06/03/19 Nebulized] Omeprazole 40 mg PO DAILY 06/10/18 06/03/19 Verapamil [Isoptin] 80 mg PO BID 06/10/18 06/03/19 Acetaminophen-Codeine 300-30mg 1 - 2 tab PO Q4-6H PRN 06/03/19 06/03/19 [Tylenol w/codeine #3] Baclofen [Lioresal] 10 - 20 mg PO Q8H PRN 06/03/19 06/03/19 Clotrimazole/Betamethasone Dip 1 applic TOPICAL BID PRN 06/03/19 06/03/19 [Lotrisone Cream] Cyanocobalamin [Vitamin B-12 1,000 mcg SQ Q30D 06/03/19 06/03/19 Injection] Fluticasone/Salmeterol [Advair 1 puff INHALATION RT-BID 06/03/19 06/03/19 500-50 Diskus] HYDROcodone/APAP 5-325MG [[place] 5] 1 - 2 tab PO Q6H PRN 06/03/19 06/03/19 Magnesium Hydroxide [Milk of 2,400 mg PO DAILY PRN 06/03/19 06/03/19 Magnesia] Meclizine [Antivert] 12.5 mg PO TID PRN 06/03/19 06/03/19 Allergies Allergy/AdvReac Type Severity Reaction Status Date / Time diltiazem Allergy Itching Verified 06/03/19 16:35 morphine AdvReac Confusion Verified 06/03/19 16:35 Review of Systems ROS Statement: Those systems with pertinent positive or pertinent negative responses have been documented in the HPI. ROS Other: All systems not noted in ROS Statement are negative. Past Medical History Past Medical History: Atrial Fibrillation, Asthma, Chest Pain / Angina, Heart Failure, COPD, Diabetes Mellitus, GERD/Reflux, Hyperlipidemia, Hypertension, Myocardial Infarction ([place]), Osteoarthritis (OA), Pneumonia Additional Past Medical History / Comment(s): Afib RVR, NIDDM type II, arthritis multiple joints, osteoporosis, chronic anemia, falls, 2013 shingelles Last Myocardial Infarction Date:: 07/16/11 History of Any Multi-Drug Resistant Organisms: None Reported Past Surgical History: Appendectomy, Breast Surgery, Heart Catheterization, Pacemaker, Tubal Ligation Additional Past Surgical History / Comment(s): 02/2011 cardiac cath-normal, benign lumpectomy bronchoscopy, EGD/colonoscopy, bilateral cataract removals, 2010 VATS L lung, falls. Past Anesthesia/Blood Transfusion Reactions: No Reported Reaction Additional Past Anesthesia/Blood Transfusion Reaction / Comment(s): Pt has received blood in past without reaction Type of Cardiac Device: Permanent Pacemaker Device Placement Date:: NOVEMBER 28 2017 Past Psychological History: Anxiety, Depression Smoking Status: Never smoker Past Alcohol Use History: None Reported Past Drug Use History: None Reported - Past Family History Sister(s) Family Medical History: Cancer Additional Family Medical History / Comment(s): breast CA Mother Family Medical History: No Reported History Additional Family Medical History / Comment(s): from car accident no other hx known Father Family Medical History: No Reported History Additional Family Medical History / Comment(s): committed suicide Daughter(s) Family Medical History: Cancer Additional Family Medical History / Comment(s): breast [place] General Exam Limitations: no limitations General appearance: alert, in no apparent distress Head exam: Present: atraumatic, normocephalic, normal inspection Eye exam: Present: normal appearance, PERRL, EOMI. Absent: scleral icterus, conjunctival injection, periorbital swelling ENT exam: Present: normal exam, normal oropharynx, mucous membranes moist Neck exam: Present: normal inspection, full ROM. Absent: tenderness, meningismus, lymphadenopathy Respiratory exam: Present: wheezes, rhonchi. Absent: normal lung sounds bilaterally, respiratory distress, rales, stridor Cardiovascular Exam: Present: regular rate, normal rhythm, normal heart sounds. Absent: systolic murmur, diastolic murmur, rubs, gallop, clicks GI/Abdominal exam: Present: soft, normal bowel sounds. Absent: distended, tenderness, guarding, rebound, rigid Course Vital Signs 08/19/19 08/19/19 08/19/19 08:01 08:08 09:22 Temperature 98.2 F Pulse Rate 62 60 Respiratory 18 22 18 Rate Blood Pressure 132/67 129/55 O2 Sat by Pulse 95 95 Oximetry Medical Decision Making - Medical Decision Making 84-year-old presented for dyspnea. Patient's chest x-ray shows possibility of a nodular area versus infection. This felt more related to pneumonia. Patient does have mild COPD exacerbation with placed on antibiotics, admitted for br eathing treatments, steroids. - Lab Data Result diagrams: 08/19/19 08:15 08/19/19 08:15 Lab Results 08/19/19 08/19/19 08/19/19 Range/Units 08:15 08:15 08:15 WBC 11.9 H (3.8-10.6) k/uL RBC 4.15 (3.80-5.40) m/uL Hgb 10.7 L (11.4-16.0) gm/dL Hct 33.4 L (34.0-46.0) % MCV 80.5 (80.0-100.0) fL MCH 25.8 (25.0-35.0) pg MCHC 32.1 (31.0-37.0) g/dL RDW 16.4 H (11.5-15.5) % Plt Count 340 (150-450) k/uL Neutrophils % 80 % Lymphocytes % 8 % Monocytes % 9 % Eosinophils % 0 % Basophils % 1 % Neutrophils # 9.5 H (1.3-7.7) k/uL Lymphocytes # 1.0 (1.0-4.8) k/uL Monocytes # 1.0 (0-1.0) k/uL Eosinophils # 0.1 (0-0.7) k/uL Basophils # 0.1 (0-0.2) k/uL Hypochromasia Slight Anisocytosis Slight PT (9.0-12.0) sec INR (<1.2) APTT (22.0-30.0) sec Sodium 139 (137-145) mmol/L Potassium 4.4 (3.5-5.1) mmol/L Chloride 103 (98-107) mmol/L Carbon Dioxide 27 (22-30) mmol/L Anion Gap 9 mmol/L BUN 25 H (7-17) mg/dL Creatinine 0.95 (0.52-1.04) mg/dL Est GFR (CKD-EPI)AfAm 64 (>60 ml/min/1.73 sqM) Est GFR (CKD-EPI)NonAf 56 (>60 ml/min/1.73 sqM) Glucose 148 H (74-99) mg/dL POC Glucose (mg/dL) (75-99) mg/dL POC Glu Accounting Systems Analyst ID Calcium 9.4 (8.4-10.2) mg/dL Magnesium 2.1 (1.6-2.3) mg/dL Total Bilirubin 1.2 (0.2-1.3) mg/dL AST 23 (14-36) U/L ALT 26 (9-52) U/L Alkaline Phosphatase 100 (38-126) U/L Troponin I (0.000-0.034) ng/mL NT-Pro-B Natriuret Pep 5420 pg/mL Total Protein 6.8 (6.3-8.2) g/dL Albumin 3.8 (3.5-5.0) g/dL 08/19/19 08/19/19 08/19/19 Range/Units 08:15 08:15 08:17 WBC (3.8-10.6) k/uL RBC (3.80-5.40) m/uL Hgb (11.4-16.0) gm/dL Hct (34.0-46.0) % MCV (80.0-100.0) fL MCH (25.0-35.0) pg MCHC (31.0-37.0) g/dL RDW (11.5-15.5) % Plt Count (150-450) k/uL Neutrophils % % Lymphocytes % % Monocytes % % Eosinophils % % Basophils % % Neutrophils # (1.3-7.7) k/uL Lymphocytes # (1.0-4.8) k/uL Monocytes # (0-1.0) k/uL Eosinophils # (0-0.7) k/uL Basophils # (0-0.2) k/uL Hypochromasia Anisocytosis PT 10.8 (9.0-12.0) sec INR 1.0 (<1.2) APTT 28.4 (22.0-30.0) sec Sodium (137-145) mmol/L Potassium (3.5-5.1) mmol/L Chloride (98-107) mmol/L Carbon Dioxide (22-30) mmol/L Anion Gap mmol/L BUN (7-17) mg/dL Creatinine (0.52-1.04) mg/dL Est GFR (CKD-EPI)AfAm (>60 ml/min/1.73 sqM) Est GFR (CKD-EPI)NonAf (>60 ml/min/1.73 sqM) Glucose (74-99) mg/dL POC Glucose (mg/dL) 141 H (75-99) mg/dL POC Glu Accounting Systems Analyst ID Marichuy Triplett Calcium (8.4-10.2) mg/dL Magnesium (1.6-2.3) mg/dL Total Bilirubin (0.2-1.3) mg/dL AST (14-36) U/L ALT (9-52) U/L Alkaline Phosphatase (38-126) U/L Troponin I 0.015 (0.000-0.034) ng/mL NT-Pro-B Natriuret Pep pg/mL Total Protein (6.3-8.2) g/dL Albumin (3.5-5.0) g/dL Disposition Clinical Impression: Dyspnea, COPD exacerbation, Pneumonia Disposition: ADMITTED IP TO THIS HOSP Condition: Fair Referrals: Royal Farias MD [Primary Care Provider] - 1-2 days
[2019-08-19 08:29] LABS: Anisocytosis Slight; Basophils # (A) 0.1 k/uL (0-0.2); Basophils % (A) 1 %; Eosinophils # (A) 0.1 k/uL (0-0.7); Eosinophils % (A) 0 %; HCT 33.4 % (34.0-46.0); HGB 10.7 gm/dL (11.4-16.0); Hypochromasia Slight; Lymphocytes % (A) 8 %; MCH 25.8 pg (25.0-35.0); MCHC 32.1 g/dL (31.0-37.0); MCV 80.5 fL (80.0-100.0); Monocytes % (A) 9 %; Neutrophils # (A) 9.5 k/uL (1.3-7.7); Neutrophils % (A) 80 %; Platelet Count 340 k/uL (150-450); RBC 4.15 m/uL (3.80-5.40); RDW 16.4 % (11.5-15.5); WBC 11.9 k/uL (3.8-10.6)
[2019-08-19 08:41] LABS: Partial Thromboplastin Time 28.4 sec (22.0-30.0); Prothrombin Time 10.8 sec (9.0-12.0)
[2019-08-19 08:42] LABS: Albumin 3.8 g/dL (3.5-5.0); Calcium 9.4 mg/dL (8.4-10.2); Magnesium 2.1 mg/dL (1.6-2.3); Potassium 4.4 mmol/L (3.5-5.1); Total Bilirubin 1.2 mg/dL (0.2-1.3); Total Protein 6.8 g/dL (6.3-8.2)
--- NOTE | 2019-08-19 09:08 | XR ---
EXAMINATION TYPE: XR chest 2V DATE OF EXAM: 08/19/2019 COMPARISON: 03/02/[address] x-ray [address] CT dated 06/03/2019 HISTORY: Shortness of breath with history of COPD TECHNIQUE: Frontal and lateral views of the chest are obtained. FINDINGS: There is a nodular density lateral view near the hemidiaphragms and costophrenic angles. Th ere is no pulmonary vascular congestion, pleural effusion, or pneumothorax seen. Pulmonary hyperinfla tion with flattening of the diaphragms is indicative of underlying COPD. The cardiac silhouette size is enlarged with dual lead left-sided cardiac device. Trace amount of right minor fissural fluid. Th e osseous structures are intact. IMPRESSION: 1. No acute cardiopulmonary process. 2. Nodular density on the lateral view of the hemidiaphragms is likely due to scarring seen on the CT dated 06/03/2019 at the left lung base. 3. Underlying COPD. 4. Cardiomegaly without radiographic evidence of decompensated congestive heart failure at this time.
[2019-08-19] MEDS ORDERED: ALBUTEROL NEBULIZED 2.5 MG/3 ML INHALATION STA (09:21)
[2019-08-19] MEDS ORDERED: AZITHROMYCIN 500 MG in SODIUM CHLORIDE 0.9% 250 ML IVPB STA (09:28)
[2019-08-19] MEDS ORDERED: PNEUMONIA PROTOCOL UTILIZED 1 EACH MISC PO PRN (09:28)
[2019-08-19] MEDS ORDERED: ALBUTEROL NEBULIZED 2.5 MG/3 ML INHALATION PRN (09:28)
[2019-08-19] MEDS ORDERED: MECLIZINE 12.5 MG TAB PO PRN (09:31)
[2019-08-19] MEDS ORDERED: HYDROcodone/APAP 5-325MG 1 EACH TAB PO PRN (09:31)
[2019-08-19] MEDS ORDERED: Acetaminophen-Codeine 300-30mg TAB PO PRN (09:31)
[2019-08-19 11:44] LABS: Glucose,Whole Blood 221 mg/dL (75-99)
[2019-08-19] MEDS: methylPREDNISolone SOD SUCCI 125 MG/2 ML VIAL IV SCH ×3 (12:44→23:57)
[2019-08-19] MEDS: IPRATROPIUM-ALBUTEROL 3 ML NEB INHALATION SCH ×3 (13:25→21:15)
[2019-08-19 16:36] LABS: Glucose,Whole Blood 250 mg/dL (75-99)
[2019-08-19] MEDS: INSULIN ASPART (NovoLOG) 100 UNIT/ML VIAL SQ SCH ×2 (17:19→20:17)
[2019-08-19 19:23] LABS: Glucose,Whole Blood 216 mg/dL (75-99)
[2019-08-19] MEDS: APIXABAN 5 MG TAB PO SCH (20:17)
[2019-08-19] MEDS: VERAPAMIL 80 MG TAB PO SCH (20:18)
[2019-08-19] MEDS: GLIMEPIRIDE 2 MG TAB PO SCH (20:18)
--- NOTE | 2019-08-19 21:53 | P.HPIM ---
History of Present Illness H&P Date: 08/19/19 Chief Complaint: Difficulty in breathing Ms. Jane is a 84 -year-old female with a past medical history of asthma, atrial fibrillation, heart failure, Asthma , diabetes mellitus, GERD, hypertension, hyperlipidemia, osteoarthritis coming into the hospital with a c hief complaint of difficulty in breathing. Patient states that she has been having cough that is productive in nature for the past 2 to 3 days. Patient denies having any fevers. She states that she took 3-4 breathing treatments at home but did not have much relief and so came into the hospital. She denies having any myalgias. No sick contacts. Patient denies having any chest pain or palpitations. Denies having any swelling of her lower extremities. Patient denies having any abdominal pain nausea vomiting or diarrhea. No headaches blurring of vision or speech abnormalities. No weakness of her extremities. In the ER patient had blood work done showing white count of 11.9 hemoglobin 10.7, troponin 0 0.015, BNP 5420. Urine analysis was negative for nitrites po sitive for small leukocyte esterase and 18 WBC. Patient also had a chest x-ray done showing no acute cardiopulmonary process and nodular density on the lateral view of hemidiaphragm due to scarring unchanged from last CAT scan May. Review of Systems REVIEW OF SYSTEMS: PSYCH: No anxiety or depression NEURO:No c/o weakness of the extremties, No facial droop, No speech abnormalities. VASCULAR: no edema HEMATOLOGIC: No history of easy bleeding and bruising . No recent infections . RESPIRATORY: No cough, No SOB, No chest discomfort. IMMUNE: No infections INTEGUMENT: no rashes OPHTHALMOLOGIC: No blurry vision and no eye discharge : No dysuria or hematuria KINESIOLOGY INTERNSHIP: No bleeding PV CARDIAC: No chest pain or paroxysmal nocturnal dyspnea MUSCULOSKELETAL : No Aches or pains in the joints or muscles. GI: No abdominal pain, Nausea or vomiting. No constipation or diarrhea. Past Medical History Past Medical History: Atrial Fibrillation, Asthma, Chest Pain / Angina, Heart Failure, COPD, Diabetes Mellitus, GERD/Reflux, Hyperlipidemia, Hypertension, Myocardial Infarction (DE), Osteoarthritis (OA), Pneumonia Additional Past Medical History / Comment(s): Afib RVR, NIDDM type II, n europathy bilateral feet, arthritis multiple joints, osteoporosis, chronic anemia, falls, 2013 shingelles Last Myocardial Infarction Date:: 07/16/11 History of Any Multi-Drug Resistant Organisms: None Reported Past Surgical History: Appendectomy, Breast Surgery, Heart Catheterization, Pacemaker, Tubal Ligation Additional Past Surgical History / Comment(s): 02/2011 cardiac cath-normal, benign L breast lumpectomy, bronchoscopy, EGD/colonoscopy, bilateral cataract removals, 2010 VATS L lung d/t fibrotic lung changes. Past Anesthesia/Blood Transfusion Reactions: No Reported Reaction Additional Past Anesthesia/Blood Transfusion Reaction / Comment(s): Pt has received blood in past without reaction Type of Cardiac Device: Permanent Pacemaker Device Placement Date:: NOVEMBER 28 2017 Smoking Status: Never smoker - Past Family History Sister(s) Family Medical History: Cancer Additional Family Medical History / Comment(s): breast CA Mother History Unknown: Yes Family Medical History: No Reported History Additional Family Medical History / Comment(s): from car accident no other hx known Father History Unknown: Yes Family Medical History: No Reported History Additional Family Medical History / Comment(s): committed suicide Daughter(s) Family Medical History: Cancer Additional Family Medical History / Comment(s): breast CA Medications and Allergies Home Medications Medication Instructions Recorded Confirmed Type Apixaban [Eliquis] 5 mg PO BID 11/24/14 08/19/19 History Potassium Chloride [Klor-Con 10] 10 meq PO DAILY 11/26/14 08/19/19 History Glimepiride [Amaryl] 2 mg PO BID 06/07/15 08/19/19 History Furosemide [Lasix] 40 mg PO DAILY 05/20/16 08/19/19 History Nadolol [Corgard] 40 mg PO DAILY 05/20/16 08/19/19 History Cyanocobalamin (Vitamin B-12) 1,000 mcg PO DAILY 09/24/17 08/19/19 History [Vitamin B-12] Amiodarone [Cordarone] 100 mg PO DAILY 11/27/17 08/19/19 History Levalbuterol Nebulized [Xopenex 1.25 mg INHALATION RT-BID PRN 06/10/18 08/19/19 History Nebulized] Omeprazole 40 mg PO DAILY 06/10/18 08/19/19 History Verapamil [Isoptin] 80 mg PO BID 06/10/18 08/19/19 History Fluticasone/Salmeterol [Advair 1 puff INHALATION RT-BID 06/03/19 08/19/19 History 500-50 Diskus] HYDROcodone/APAP 5-325MG [Moro 5] 1 tab PO Q6H PRN 06/03/19 08/19/19 History Acetaminophen [Tylenol 8 Hour] 650 mg PO BID 08/19/19 08/19/19 History Cholecalciferol [Vitamin D3 (25 5,000 unit PO DAILY 08/19/19 08/19/19 History Mcg = 1000 Iu)] Allergies Allergy/AdvReac Type Severity Reaction Status Date / Time diltiazem Allergy Itching Verified 08/19/19 10:15 morphine AdvReac Confusion Verified 08/19/19 10:15 Physical Exam Vitals: Vital Signs Temp Pulse Pulse Resp BP BP Pulse Ox 08/19/19 11:29 98.1 F 60 18 157/69 89 L 08/19/19 10:34 60 18 146/70 94 L 08/19/19 10:03 63 08/19/19 09:48 60 08/19/19 09:22 60 18 129/55 95 08/19/19 08:08 22 08/19/19 08:01 98.2 F 62 18 132/67 95 Intake and Output 08/18/19 08/19/19 08/19/19 22:59 06:59 14:59 Other: Voiding Method Toilet # Voids 1 Weight 61.235 kg GEN. APPEARANCE: alert, in no apparent distress HEAD EXAM: atraumatic, normocephalic, normal inspection EYE EXAM: normal appearance, PERRL, EOMI. no pallor , no icterus ENT EXAM: normal exam, mucous membranes moist NECK EXAM: normal inspection. no thyromeagaly or lymphadenopathy RESPIRATORY EXAM: Decreased breath sounds in all lung fiels. Diffuse Ronchi CARDIOVASCULAR EXAM: regular rate, normal rhythm, normal heart sounds. No additional sounds GI/ABDOMINAL EXAM: soft, normal bowel sounds. no distension , tenderness, guarding or rebound EXTREMITIES EXAM: no pedal edema,no joint swelling, no calf tenderness NEUROLOGICAL EXAM: alert, oriented X3, no focal deficit PSYCHIATRIC EXAM: normal affect, normal mood SKIN EXAM: no rash Results CBC & Chem 7: 08/19/19 08:15 08/19/19 08:15 Labs: Abnormal Lab Results - Last 24 Hours (Table) 08/19/19 08/19/19 08/19/19 Range/Units 08:15 08:15 08:17 WBC 11.9 H (3.8-10.6) k/uL Hgb 10.7 L (11.4-16.0) gm/dL Hct 33.4 L (34.0-46.0) % RDW 16.4 H (11.5-15.5) % Neutrophils # 9.5 H (1.3-7.7) k/uL BUN 25 H (7-17) mg/dL Glucose 148 H (74-99) mg/dL POC Glucose (mg/dL) 141 H (75-99) mg/dL 08/19/19 Range/Units 11:42 WBC (3.8-10.6) k/uL Hgb (11.4-16.0) gm/dL Hct (34.0-46.0) % RDW (11.5-15.5) % Neutrophils # (1.3-7.7) k/uL BUN (7-17) mg/dL Glucose (74-99) mg/dL POC Glucose (mg/dL) 221 H (75-99) mg/dL Thrombosis Risk Factor Assmnt - Choose All That Apply Any of the Below Risk Factors Present?: Yes Each Factor Represents 1 point: Abnormal pulmonary function (COPD), Serious lung disease incl. pneumonia (< 1month) Other Risk Factors: Yes Each Risk Factor Represents 3 Points: Age 75 years or older Other congenital or acquired thrombophilia - If yes, enter type in comment: No Thrombosis Risk Factor Assessment Total Risk Factor Score: 5 Thrombosis Risk Factor Assessment Level: High Risk Assessment and Plan Assessment: ASSESSMENT Acute exacerbation of chronic moderate persistent bronchial asthma Previous history of VATS procedure on left lung in 2010 with chronic fibrotic changes Atrial fibrillation on anticoagulation with Eliquis History of congestive heart failure Chronic diastolic dysfunction 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 Continue antibiotics in the form of ceftriaxone and Zithromax. Patient has been started on all her home medications. Pulmonary services have been consulted .Further recommendations to follow depending on the progress of the patient.
[2019-08-20] MEDS: methylPREDNISolone SOD SUCCI 125 MG/2 ML VIAL IV SCH ×4 (05:34→23:03)
[2019-08-20 06:32] LABS: Glucose,Whole Blood 191 mg/dL (75-99)
[2019-08-20 06:47] LABS: Anisocytosis Slight; Basophils % (A) 0 %; Eosinophils # (A) 0.1 k/uL (0-0.7); Eosinophils % (A) 1 %; HCT 29.8 % (34.0-46.0); Hypochromasia Marked; Lymphocytes # (A) 0.7 k/uL (1.0-4.8); Lymphocytes % (A) 6 %; MCH 25.9 pg (25.0-35.0); MCHC 30.8 g/dL (31.0-37.0); MCV 83.9 fL (80.0-100.0); Mean Platelet Volume 7.8; Monocytes # (A) 0.3 k/uL (0-1.0); Monocytes % (A) 3 %; Neutrophils # (A) 10.7 k/uL (1.3-7.7); Neutrophils % (A) 91 %; Platelet Count 430 k/uL (150-450); RBC 3.54 m/uL (3.80-5.40); WBC 11.8 k/uL (3.8-10.6)
[2019-08-20 06:55] LABS: HGB 9.2 gm/dL (11.4-16.0)
[2019-08-20 07:06] LABS: Calcium 9.5 mg/dL (8.4-10.2); Potassium 4.2 mmol/L (3.5-5.1)
[2019-08-20] MEDS: IPRATROPIUM-ALBUTEROL 3 ML NEB INHALATION SCH ×4 (07:57→19:54)
--- NOTE | 2019-08-20 08:18 | XR ---
EXAMINATION TYPE: XR chest 2V DATE OF EXAM: 08/20/2019 COMPARISON: 08/19/2019 HISTORY: Pneumonia. Follow-up exam. TECHNIQUE: Frontal and lateral views of the chest are obtained. FINDINGS: Patchy density at the lung bases on the lateral view is less conspicuous on today's exam. Scarring is seen at the right minor fissure. New bibasilar atelectasis. Underlying emphysema is seen. Cardia mediastinal silhouette is enlarged with dual lead left-sided cardiac device. IMPRESSION: New bibasilar atelectasis. The previously seen nodular density at the left lung base is less conspicuous on today's exam but again likely relates to scarring when correlated with the prior CT.
[2019-08-20] MEDS: INSULIN ASPART (NovoLOG) 100 UNIT/ML VIAL SQ SCH ×4 (08:34→20:36)
[2019-08-20] MEDS: GLIMEPIRIDE 2 MG TAB PO SCH ×2 (08:35→20:21)
[2019-08-20] MEDS: NADOLOL 20 MG TAB PO SCH (08:35)
[2019-08-20] MEDS: PANTOPRAZOLE 40 MG TABLET PO SCH (08:35)
[2019-08-20] MEDS: FUROSEMIDE 40 MG TAB PO SCH (08:35)
[2019-08-20] MEDS: POTASSIUM CHLORIDE ER 10 MEQ TAB.ER.PRT PO SCH (08:35)
[2019-08-20] MEDS: AMIODARONE 100 MG TAB PO SCH (08:35)
[2019-08-20] MEDS: APIXABAN 5 MG TAB PO SCH ×2 (08:35→20:22)
[2019-08-20] MEDS: VERAPAMIL 80 MG TAB PO SCH ×2 (08:36→20:21)
[2019-08-20] MEDS: AZITHROMYCIN 500 MG TAB PO SCH (08:36)
[2019-08-20 11:45] LABS: Glucose,Whole Blood 189 mg/dL (75-99)
--- NOTE | 2019-08-20 12:49 | CDI ---
Documentation Clarification Form Date: 08/20/2019 12:46:54 PM From: Judith Nesbitt RN, CCDS Admit Date: 08/20/2019 8:57:00 AM Patient Name: Vashti Jane Visit Number: [id number] Discharge Date: ATTENTION: The Clinical Documentation Specialists (CDI) and [facility] Coding Staff appreciate your assistance in clarifying documentation. Please respond to the clarification below the line at the bottom and electronically sign. The CDI & [facility] Coding staff will review the response and follow-up if needed. Please note: Queries are made part of the Legal Health Record. If you have any questions, please contact the author of this message via ITS. Dr. Molly Jennings Atrial Fibrillation is documented in the history of present illness with ongoing treatment and additional clarification is needed. History/Risk Factors: Atrial Fibrillation, Chronic Diastolic Congestive Heart Failure, COPD, Asthma, Diabetes Mellitus, Clinical Indicators: 84-year-old female present with shortness of breath. She has a history or atrial fibrillation on Eliquis with a permanent pacemaker implanted on november 28 2017. EKG/telemetry on 08/20/19: Electronic atrial pacemaker @60 bpm Treatment: Eliquis 5 mg PO BID Monitor PT/INR In your professional opinion, can you please clarify the type of Atrial Fibrillation, if known? Chronic/Permanent Paroxysmal Persistent Other, please specify Unable to determine (Last Revision: December 2017) MTDD
--- NOTE | 2019-08-20 14:28 | P.PN ---
Subjective Ms. Jane is a 84 -year-old female with a past medical history of asthma, atrial fibrillation, heart failure, Asthma , diabetes mellitus, GERD, h ypertension, hyperlipidemia, osteoarthritis coming into the hospital with a chief complaint of difficulty in breathing. Patient states that she has been having cough that is productive in nature for the past 2 to 3 days. Patient denies having any fevers. She states that she took 3-4 breathing treatments at home but did not have much relief and so came into the hospital. She denies miranda ving any myalgias. No sick contacts. Patient denies having any chest pain or palpitations. Denies having any swelling of her lower extremities. Patient denies having any abdominal pain nausea vomiting or diarrhea. No headaches blurring of vision or speech abnormalities. No weakness of her extremities. In the ER patient had blood work done showing white count of 11.9 hemoglobin 10.7, troponin 0 0.015, BNP 5420. Urine analysis was negative for nitrites positive for small leukocyte esterase and 18 WBC. Patient also had a chest x- ray done showing no acute cardiopulmonary process and nodular density on the lateral view of hemidiaphragm due to scarring unchanged from last CAT scan May. 08/20/2019 Patient presents because of dyspnea of 3 days' duration, she still have some dyspnea and wheezing. She still have some cough and creation phlegm. She denies chest pain. She never smoked. No alcohol or illicit drugs. Vitals are stable, she saturating 95% in 2 L oxygen via NC, no home oxygen, no home steroids. Labs showing persistent mild leukocytosis at 11.8 K, hemoglobin 9.2. Creatinine and electrolytes are within normal, sugars controlled. Liver enzymes and troponin are negative. REVIEW OF SYSTEMS: PSYCH: No anxiety or depression NEURO:No c/o weakness of the extremties, No facial droop, No speech abnormalities. VASCULAR: no edema HEMATOLOGIC: No history of easy bleeding and bruising . No recent infections . RESPIRATORY: No cough, No SOB, No chest discomfort. IMMUNE: No infections INTEGUMENT: no rashes OPHTHALMOLOGIC: No blurry vision and no eye discharge : No dysuria or hematuria SALES INSPECTOR: No bleeding PV CARDIAC: No chest pain or paroxysmal nocturnal dyspnea MUSCULOSKELETAL : No Aches or pains in the joints or muscles. GI: No abdominal pain, Nausea or vomiting. No constipation or diarrhea. Objective - Vital Signs Vital signs: Vital Signs Temp 97.7 F 08/20/19 07:00 Pulse 85 08/20/19 11:33 Resp 16 08/20/19 11:33 BP 134/68 08/20/19 07:00 Pulse Ox 95 08/20/19 07:59 Intake & Output 08/19/19 08/20/19 08/20/19 18:59 06:59 18:59 Intake Total 640 440 Output Total 200 Balance 640 240 Weight 61.235 kg Intake: Oral 440 240 Other 200 200 Output: Urine 200 Other: Voiding Method Toilet Toilet Toilet # Voids 1 1 1 - Exam GENERAL: The patient is alert and oriented x3, not in any acute distress. Well developed, well nourished. HEENT: Pupils are round and equally reacting to light. EOMI. No scleral icterus. No conjunctival pallor. Normocephalic, atraumatic. No pharyngeal erythema. No thyromegaly. CARDIOVASCULAR: S1 and S2 present. No murmurs, rubs, or gallops. -PULMONARY: Chest is clear to auscultation scattered bilateral wheezing ABDOMEN: Soft, nontender, nondistended, normoactive bowel sounds. No palpable organomegaly. MUSCULOSKELETAL: No joint swelling or deformity. EXTREMITIES: No cyanosis, clubbing, or pedal edema. NEUROLOGICAL: Gross neurological examination did not reveal any focal deficits. SKIN: No rashes. no petechiae. - Labs CBC & Chem 7: 08/20/19 06:32 08/20/19 06:32 Labs: Abnormal Lab Results - Last 24 Hours (Table) 08/19/19 08/19/19 08/20/19 Range/Units 16:34 19:22 06:30 WBC (3.8-10.6) k/uL RBC (3.80-5.40) m/uL Hgb (11.4-16.0) gm/dL Hct (34.0-46.0) % MCHC (31.0-37.0) g/dL RDW (11.5-15.5) % Neutrophils # (1.3-7.7) k/uL Lymphocytes # (1.0-4.8) k/uL BUN (7-17) mg/dL Glucose (74-99) mg/dL POC Glucose (mg/dL) 250 H 216 H 191 H (75-99) mg/dL 08/20/19 08/20/19 08/20/19 Range/Units 06:32 06:32 11:43 WBC 11.8 H (3.8-10.6) k/uL RBC 3.54 L (3.80-5.40) m/uL Hgb 9.2 L D (11.4-16.0) gm/dL Hct 29.8 L (34.0-46.0) % MCHC 30.8 L (31.0-37.0) g/dL RDW 16.0 H (11.5-15.5) % Neutrophils # 10.7 H (1.3-7.7) k/uL Lymphocytes # 0.7 L (1.0-4.8) k/uL BUN 26 H (7-17) mg/dL Glucose 194 H (74-99) mg/dL POC Glucose (mg/dL) 189 H (75-99) mg/dL Microbiology - Last 24 Hours (Table) 08/19/19 10:29 Blood Culture - Preliminary Blood No Growth after 24 hours Assessment and Plan Assessment: Acute exacerbation of chronic moderate persistent bronchial asthma Previous history of VATS procedure on left lung in 2010 with chronic fibrotic changes Atrial fibrillation on anticoagulation with Eliquis History of congestive heart failure Chronic diastolic dysfunction 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 Continue antibiotics in the form of ceftriaxone and Zithromax. Patient has been started on all her home medications. Pulmonary services have been consulted .Further recommendations to follow depending on the progress of the patient. Labs and medication were reviewed.. Continue same treatment. Continue with symptomatic treatment. Resume home medication. Monitor lytes and vitals. DVT and GI prophylaxis. Further recommendations of the clinical course of the patient DVT prophylaxis: Eliquis GI Prophylaxis: Pepcid PT/OT: Protonix Prognosis is guarded
--- NOTE | 2019-08-20 14:39 | CONS ---
CONSULTATION PULMONARY/CRITICAL CARE CONSULTATION: DATE OF CONSULTATION: 08/20/2019 An 84-year-old female who presents to the emergency department via EMS. The patient sees Dr. Royal Farias down in [place] as a primary and I see her for her COPD. She apparently has missed a number of appointments with me recently. Anyway, she comes in complaining of a couple days worth of increasing shortness of breath. In addition, she has a cough which is mostly nonproductive but occasionally productive of clear phlegm. She denies any fever. She does have chills. She does admit to some wheezing and tightness in her chest. Things got worse and worse and she decided that she needed to be seen. She was told in the emergency room that she might have some pneumonia. On chest x-ray, there might be a small patch of infiltrate in the left lower lobe. She denied any chest pain or pressure. She denied any nausea, vomiting or diarrhea. There was no fever as mentioned above. No genitourinary complaints. Currently, she is in the observation unit in room 152. She is resting comfortably. Nasal O2 in place. CURRENT MEDICATIONS: Include Eliquis, Klor-Con, Amaryl, albuterol inhaler, Lasix, Nadolol, vitamin B12, Cordarone, Hyzaar, Xopenex updrafts, omeprazole, verapamil, Tylenol with codeine, baclofen, Lotrisone cream, vitamin B12, Advair, Summit, magnesium hydroxide, and Antivert. ALLERGIES: Include CARDIZEM and MORPHINE. MEDICAL HISTORY: Positive for atrial fibrillation, COPD/asthma, angina pectoris, CHF, diabetes, GERD, hyperlipidemia, hypertension, myocardial infarction, osteoarthritis, and a previous episode of pneumonia complicated by a parapneumonic effusion, requiring chest tube drainage. Other medical problems include shingles and chronic anemia. SURGICAL HISTORY: Includes appendectomy, breast surgery, heart catheterization, pacemaker insertion, tubal ligation, previous lumpectomy, bronchoscopy, EGD/colonoscopy, bilateral cardiac surgery, previous VATS procedure on the left lung for pneumonia complicated effusion, with decortication and chest tube placement, and some other minor procedures. SOCIAL HISTORY: Negative for tobacco use. She denies any alcohol or illicit drug use. FAMILY HISTORY: Significant for sister with breast cancer. Mother with no major medical problems. A father who committed suicide and a daughter with breast cancer. REVIEW OF SYSTEMS: CONSTITUTIONAL: Chills. NEUROLOGIC: Negative. HEENT: Negative. CARDIOVASCULAR: Negative. PULMONARY: Shortness of breath, cough, chest tightness, wheezing, minimal phlegm production. GI: Negative. : Negative. RHEUMATOLOGIC: Negative. IMMUNOLOGIC: Negative. ENDOCRINOLOGIC: Negative. DERMATOLOGIC: Negative. Current vital signs are reviewed, temperature 97.7, heart rate 60, respiratory rate 18, blood pressure 134/68 mean 92 L saturation 95%. Appears in no acute distress. HEENT: Examination is grossly unremarkable. Mucous membranes are moist. Nasal O2 in place. NECK: Supple. Full range of motion. No adenopathy or thyromegaly. Neck veins are flat. CARDIOVASCULAR: Examination reveals regular rhythm and rate. Heart rate in the mid 60s. S1, S2 normal. No S3, S4, or murmur. LUNGS: Reveal some coarse expiratory rhonchi and wheezes. There are some crackles at the bases. There is prolongation. Adventitious lung sounds are more prominent on forced maneuver. ABDOMEN: Soft. Bowel sounds are heard. EXTREMITIES: Intact. No cyanosis, clubbing, or edema. SKIN: Without rash. NEUROLOGIC: Examination is brief but nonfocal. LABS: Reviewed. White count 11.8, hemoglobin 9.2, hematocrit 29.8, platelet count 430,000. Sodium 141, potassium 4.2 chloride 107, CO2 is 23, anion gap 11, BUN and creatinine were 26 and 0.83. Microbiology is currently pending or negative. CHEST X-RAY: Shows changes of COPD, there is some cardiomegaly. There is also a bibasilar atelectasis and/or infiltrate, more so on the left at the left base. Current medications are reviewed. She is currently on Tylenol with codeine, albuterol updrafts, Cordarone, Eliquis, Zithromax orally, Rocephin, Lasix, glimepiride, Summit, insulin, albuterol and Atrovent updrafts, Antivert, Solu-Medrol, Nadolol, Protonix, potassium replacement, and verapamil. ASSESSMENT: 1. Chronic obstructive pulmonary disease/asthma exacerbation complicated by possible pneumonia, left lower lobe. 2. History of chronic atrial fibrillation. 3. Angina pectoris. 4. History of congestive heart failure. 5. Diabetes mellitus. 6. Gastroesophageal reflux disease. 7. Hyperlipidemia. 8. Benign essential hypertension. 9. Previous myocardial infarction. 10.Degenerative joint disease. 11.Osteoporosis. 12.Previous episode of pneumonia with complicated parapneumonic effusion, requiring VATS procedure with decortication. PLAN: Current medications are appropriate. She is currently on updrafts, good antibiotics in the form of Rocephin and Zithromax and Solu-Medrol. I will add some Symbicort to the regimen. No additional recommendations are made. Will continue to follow. Prognosis is guarded. Once discharged, will see her back in the office. MMODL / IJN: [id number] /
[2019-08-20 16:46] LABS: Glucose,Whole Blood 218 mg/dL (75-99)
[2019-08-20] MEDS: SYMBICORT 160-4.5 MCG INHALER INHALATION SCH (19:54)
[2019-08-20 20:15] LABS: Glucose,Whole Blood 270 mg/dL (75-99)
[2019-08-20] MEDS: FAMOTIDINE 20 MG/2 ML VIAL IV SCH (20:21)
[2019-08-21] MEDS: methylPREDNISolone SOD SUCCI 125 MG/2 ML VIAL IV SCH ×3 (05:27→12:08)
[2019-08-21 06:08] LABS: Anisocytosis Slight; Basophils % (A) 0 %; Eosinophils % (A) 0 %; HCT 28.4 % (34.0-46.0); HGB 8.8 gm/dL (11.4-16.0); Hypochromasia Moderate; Lymphocytes # (A) 0.6 k/uL (1.0-4.8); Lymphocytes % (A) 6 %; MCH 25.6 pg (25.0-35.0); MCHC 31.2 g/dL (31.0-37.0); MCV 82.1 fL (80.0-100.0); Mean Platelet Volume 7.9; Monocytes # (A) 0.3 k/uL (0-1.0); Monocytes % (A) 3 %; Neutrophils # (A) 9.3 k/uL (1.3-7.7); Neutrophils % (A) 91 %; Platelet Count 451 k/uL (150-450); RBC 3.45 m/uL (3.80-5.40); RDW 16.4 % (11.5-15.5); WBC 10.2 k/uL (3.8-10.6)
[2019-08-21 06:54] LABS: Glucose,Whole Blood 178 mg/dL (75-99)
[2019-08-21] MEDS: SYMBICORT 160-4.5 MCG INHALER INHALATION SCH (07:46)
[2019-08-21] MEDS: IPRATROPIUM-ALBUTEROL 3 ML NEB INHALATION SCH ×2 (07:46→12:32)
[2019-08-21 07:47] VITALS: BP 175/73; RESP 18; TEMP 97.5
[2019-08-21] MEDS: INSULIN ASPART (NovoLOG) 100 UNIT/ML VIAL SQ SCH ×2 (08:03→12:07)
[2019-08-21] MEDS: NADOLOL 20 MG TAB PO SCH (08:03)
[2019-08-21] MEDS: AMIODARONE 100 MG TAB PO SCH (08:04)
[2019-08-21] MEDS: GLIMEPIRIDE 2 MG TAB PO SCH (08:04)
[2019-08-21] MEDS: VERAPAMIL 80 MG TAB PO SCH (08:04)
[2019-08-21] MEDS: POTASSIUM CHLORIDE ER 10 MEQ TAB.ER.PRT PO SCH (08:04)
[2019-08-21] MEDS: FUROSEMIDE 40 MG TAB PO SCH (08:04)
[2019-08-21] MEDS: APIXABAN 5 MG TAB PO SCH (08:04)
[2019-08-21] MEDS: PANTOPRAZOLE 40 MG TABLET PO SCH (08:04)
[2019-08-21] MEDS: AZITHROMYCIN 500 MG TAB PO SCH (08:04)
[2019-08-21] MEDS: FAMOTIDINE 20 MG/2 ML VIAL IV SCH (08:04)
[2019-08-21 11:52] LABS: Glucose,Whole Blood 205 mg/dL (75-99)
[2019-08-21 12:36] VITALS: PULSE 64
--- NOTE | 2019-08-21 12:57 | P.DS ---
Providers Date of admission: 08/20/19 08:57 Attending physician: Kashif Philippe Consults: 08/19/19 13:13 Consult Physician Routine Consulting Provider: Jaylon Malone Consult Reason/Comments: copd, pneumonia Do you want consulting provider notified?: Already Contacted Primary care physician: Royal [facility]as [facility] Course: diagnoses: Acute exacerbation of chronic moderate persistent bronchial asthma Previous history of VATS procedure on left lung in 2010 with chronic fibrotic changes Atrial fibrillation on anticoagulation with Eliquis History of congestive heart failure anemia Chronic diastolic dysfunction 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 Jane is a 84 -year-old female with a past medical history of asthma, atrial fibrillation, heart failure, Asthma , diabetes mellitus, GERD, hypertension, hyperlipidemia, osteoarthritis coming into the hospital with a chief complaint of difficulty in breathing. Patient states that she has been having cough that is productive in nature for the past 2 to 3 days. Patient denies having any fevers. She states that she took 3-4 breathing treatments at home but did not have much relief and so came into the hospital. patient was admitted with acute COPD exacerbation and possible left lower lobe pneumonia, patient has been treated with Zithromax and ceftriaxone as well as Solu-Medrol, patient showed interval improvement in her breathing came back to normal of posterior normal. Circumference is better. She denies chest pain. She denies abdominal pain or nausea vomiting. No fever. No other new complaint.no bleeding from any where, her stool is yellow. vital signs stable. And leukocytosis back to normal. Patient has been evaluated by bail bond agent was following up with her.physical therapy recommended home Patient was cleared for discharge by pulmonary Patient will be discharged on short course of antibiotics and Taper steroids Problems and management plan were discussed with the patient and he verbalized understanding and acceptance Patient was found stable and can be discharged home however he needs follow-up as an outpatient. Patient was instructed to follow up with PCP within one week and patient agrees. Patient agrees with that appointment with her bail bond agent in 1 week and she stated she will follow up. Patient agrees with the appointments made for her with Dr. Lauren and said she will follow up on its timing Gen: patient is a AAOx3, no distress CVS: S1-S2, RRR, no murmur Lungs: B/L CTA, no wheezing Abdomen: soft, no distention, no tenderness, positive bowel sounds Extremity: no leg edema or induration Time spent more than 35 minutes Patient Condition at Discharge: Fair Plan - Discharge Summary Discharge Rx Participant: No New Discharge Prescriptions: No Action Apixaban [Eliquis] 5 mg PO BID Potassium Chloride [Klor-Con 10] 10 meq PO DAILY Glimepiride [Amaryl] 2 mg PO BID Furosemide [Lasix] 40 mg PO DAILY Nadolol [Corgard] 40 mg PO DAILY Cyanocobalamin (Vitamin B-12) [Vitamin B-12] 1,000 mcg PO DAILY Amiodarone [Cordarone] 100 mg PO DAILY Verapamil [Isoptin] 80 mg PO BID Omeprazole 40 mg PO DAILY Levalbuterol Nebulized [Xopenex Nebulized] 1.25 mg INHALATION RT-BID PRN PRN Reason: Shortness Of Breath HYDROcodone/APAP 5-325MG [[place] 5] 1 tab PO Q6H PRN PRN Reason: Pain Fluticasone/Salmeterol [Advair 500-50 Diskus] 1 puff INHALATION RT-BID Acetaminophen [Tylenol 8 Hour] 650 mg PO BID Cholecalciferol [Vitamin D3 (25 Mcg = 1000 Iu)] 5,000 unit PO DAILY Discharge Medication List Apixaban [Eliquis] 5 mg PO BID 11/24/14 [History] Potassium Chloride [Klor-Con 10] 10 meq PO DAILY 11/26/14 [History] Glimepiride [Amaryl] 2 mg PO BID 06/07/15 [History] Furosemide [Lasix] 40 mg PO DAILY 05/20/16 [History] Nadolol [Corgard] 40 mg PO DAILY 05/20/16 [History] Cyanocobalamin (Vitamin B-12) [Vitamin B-12] 1,000 mcg PO DAILY 09/24/17 [History] Amiodarone [Cordarone] 100 mg PO DAILY 11/27/17 [History] Levalbuterol Nebulized [Xopenex Nebulized] 1.25 mg INHALATION RT-BID PRN 06/10/18 [History] Omeprazole 40 mg PO DAILY 06/10/18 [History] Verapamil [Isoptin] 80 mg PO BID 06/10/18 [History] Fluticasone/Salmeterol [Advair 500-50 Diskus] 1 puff INHALATION RT-BID 06/03/19 [History] HYDROcodone/APAP 5-325MG [[place] 5] 1 tab PO Q6H PRN 06/03/19 [History] Acetaminophen [Tylenol 8 Hour] 650 mg PO BID 08/19/19 [History] Cholecalciferol [Vitamin D3 (25 Mcg = 1000 Iu)] 5,000 unit PO DAILY 08/19/19 [History] Follow up Appointment(s)/Referral(s): [facility], [NON-STAFF] - Royal Farias MD [Primary Care Provider] - 1-2 days Jaylon Malone DO [Doctor of Osteopathic Medicine] - 09/06/19 2:00 pm Patient Instructions/Handouts: COPD (Chronic Obstructive Pulmonary Disease) (DC)
--- NOTE | 2019-08-21 14:52 | PN ---
PROGRESS NOTE PULMONARY/CRITICAL CARE PROGRESS NOTE DATE OF SERVICE: 08/21/2019 This is an 84-year-old female who we saw yesterday in consultation. My impression was that she had COPD exacerbation complicated by possible pneumonia of left lower lobe. She also has a history of chronic atrial fibrillation, angina pectoris, history of congestive heart failure, diabetes mellitus, GERD, hyperlipidemia, benign essential hypertension, myocardial infarction, DJD, osteoporosis, and a previous episode of pneumonia with complicated parapneumonic effusion requiring a VATS procedure with decortication. Currently, she is feeling better. Her breathing is much improved. The patient still has some shortness of breath, chest tightness, wheezing, and cough. She is coughing up some phlegm. There have been no fever or chills. PHYSICAL EXAMINATION: VITAL SIGNS: Current vital signs are reviewed. Temperature is 97.5, heart rate 64, respiratory rate 18, blood pressure 175/73, mean 107, 2-liter saturation 97%. She appears in no acute distress. Nasal O2 noted. HEENT: Examination is grossly unremarkable. Mucous membranes are moist. No oral lesions. NECK: Supple. Full range of motion. No adenopathy or thyromegaly. Neck veins are flat. CARDIOVASCULAR: Examination reveals regular rhythm and rate. S1 and S2 normal. No S3, S4, or murmur. LUNGS: Reveal some coarse expiratory rhonchi. No wheezes. There is prolongation on forced maneuver. No crackles. ABDOMEN: Soft. Bowel sounds are heard. EXTREMITIES: Are intact. No cyanosis, clubbing, or edema. SKIN: Without rash. NEUROLOGIC: Examination is brief but nonfocal. LAB DATA: Reviewed. White count 10.2, hemoglobin 8.8, hematocrit 28.4, platelet count 451,000. Microbiology is negative. Chest x-ray is reviewed. MEDICATIONS: Medications are reviewed. ASSESSMENT: 1. Chronic obstructive pulmonary disease exacerbation complicated by purulent tracheobronchitis and possible bronchial pneumonia, left lower lobe. 2. Chronic atrial fibrillation. 3. Angina pectoris. 4. Congestive heart failure. 5. Diabetes mellitus. 6. Gastroesophageal reflux disease. 7. Hyperlipidemia. 8. Benign essential hypertension. 9. Previous myocardial infarction. 10.Degenerative joint disease. 11.Osteoporosis. 12.Chronic anemia. 13.Previous episode of pneumonia involving the left chest, with complicated parapneumonic effusion requiring a VATS procedure with decortication. PLAN: The patient is doing better. Will continue on her current medications. Not sure when she will be discharged. Post discharge, she should followup with me in the office. Currently, she is on short-acting beta agonist, short-acting muscarinic antagonist, long-acting beta agonist, inhaled corticosteroids, and systemic corticosteroids, along with antibiotics. She should also followup with her primary doctor, Dr. Royal Farias. Additional recommendations and suggestions are forthcoming. MMODL / IJN: [id number] /
== END 2019-08-21 13:54 | disposition home health service (06) | DRG 202 ==
LOC: EC 07:58 → 1SOBS 10:17 → OBSVTOIN 08-20 08:57
PROVIDERS: ADMIT Hospitalist; ATTEND Hospitalist
DX: J45.41 Moderate persistent asthma with (acute) exacerbation (principal); I48.20 Chronic atrial fibrillation, unspecified; I50.32 Chronic diastolic (congestive) heart failure; D64.9 Anemia, unspecified; E11.9 Type 2 diabetes mellitus without complications; E78.5 Hyperlipidemia, unspecified; F41.8 Other specified anxiety disorders; I11.0 Hypertensive heart disease with heart failure; I27.29 Other secondary pulmonary hypertension; J44.9 Chronic obstructive pulmonary disease, unspecified; J84.10 Pulmonary fibrosis, unspecified; K21.9 Gastro-esophageal reflux disease without esophagitis; M19.90 Unspecified osteoarthritis, unspecified site; M81.0 Age-related osteoporosis without current pathological fracture; Z79.01 Long term (current) use of anticoagulants; Z79.84 Long term (current) use of oral hypoglycemic drugs; I25.2 Old myocardial infarction; Z79.899 Other long term (current) drug therapy; Z80.3 Family history of malignant neoplasm of breast; Z95.0 Presence of cardiac pacemaker; Z88.5 Allergy status to narcotic agent; Z88.8 Allergy status to other drugs, medicaments and biological substances; Z87.01 Personal history of pneumonia (recurrent); Z98.51 Tubal ligation status; Z98.890 Other specified postprocedural states
CPT/HCPCS: 36415; 71046; 80048; 80053; 83735; 83880; 84484; 85025; 85610; 85730; 87040; 93005; 94640; 94760; 96374; 99285

== ENCOUNTER 2019-09-04 08:56 | Inpatient (IN) | payer MEDICARE ==
[2019-09-04] MEDS ORDERED: KETOROLAC 30 MG/ML 1 ML VIAL IVP STA (09:34)
[2019-09-04] MEDS ORDERED: SODIUM CHLORIDE 0.9% 500 ML 500 ML IV STA (09:34)
[2019-09-04] MEDS ORDERED: SODIUM CHLORIDE 0.9% 1,000 ML IV STA (09:34)
[2019-09-04] MEDS ORDERED: MORPHINE SULFATE 4 MG/ML SYRINGE IV STA (09:34)
[2019-09-04 10:17] LABS: Anisocytosis Slight; Basophils # (A) 0.3 k/uL (0-0.2); Basophils % (A) 2 %; Eosinophils # (A) 0.2 k/uL (0-0.7); Eosinophils % (A) 2 %; HCT 29.2 % (34.0-46.0); HGB 8.9 gm/dL (11.4-16.0); Hypochromasia Moderate; Lymphocytes % (A) 9 %; MCHC 30.4 g/dL (31.0-37.0); MCV 82.2 fL (80.0-100.0); Monocytes # (A) 1.2 k/uL (0-1.0); Monocytes % (A) 10 %; Neutrophils # (A) 9.2 k/uL (1.3-7.7); Neutrophils % (A) 77 %; Platelet Count 473 k/uL (150-450); RBC 3.55 m/uL (3.80-5.40); RDW 16.8 % (11.5-15.5)
[2019-09-04 10:20] LABS: Appearance,Urine Clear (Clear); Bilirubin,Urine Negative (Negative); Blood,Urine Negative (Negative); Color,Urine Light Yellow; Glucose,Urine (UA) Negative (Negative); Ketones,Urine Negative (Negative); Leukocyte Esterase,Urine Negative (Negative); Nitrite,Urine Negative (Negative); PH, Urine 6.5 (5.0-8.0); Protein,Urine Negative (Negative); Specific Gravity,Urine 1.016 (1.001-1.035); Urobilinogen,Urine <2.0 mg/dL (<2.0)
[2019-09-04 10:25] LABS: Albumin 3.3 g/dL (3.5-5.0); Calcium 9.1 mg/dL (8.4-10.2); Potassium 4.8 mmol/L (3.5-5.1); Total Bilirubin 0.6 mg/dL (0.2-1.3); Total Protein 5.9 g/dL (6.3-8.2)
--- NOTE | 2019-09-04 10:30 | ED ---
Back Pain HPI - General Chief Complaint: Back Pain/Injury Stated Complaint: Back pain Time Seen by Provider: 09/04/19 09:00 Source: EMS, RN notes reviewed, old records reviewed Limitations: no limitations - History of Present Illness Initial Comments: 84-year-old female presents today for evaluation for concern for intractable back pain. Patient reports that she was diagnosed with a T8 compression fracture. Patient reports that she's been laying in bed for the past 2 days due to pain. Inability to move. She states she does have some minimal abdominal pain as well. She denies any nausea or vomiting. Reports normal urination and stool. Patient states that she had the compression fracture after she bent over to pick something up and had a pop in her back. She was evaluated [facility] on 09/02. Since that she is scheduled for an upcoming appointment with Dr. Duran. - Related Data Home Medications Medication Instructions Recorded Confirmed Apixaban [Eliquis] 5 mg PO BID 11/24/14 08/19/19 Potassium Chloride [Klor-Con 10] 10 meq PO DAILY 11/26/14 08/19/19 Glimepiride [Amaryl] 2 mg PO BID 06/07/15 08/19/19 Furosemide [Lasix] 40 mg PO DAILY 05/20/16 08/19/19 Nadolol [Corgard] 40 mg PO DAILY 05/20/16 08/19/19 Cyanocobalamin (Vitamin B-12) 1,000 mcg PO DAILY 09/24/17 08/19/19 [Vitamin B-12] Amiodarone [Cordarone] 100 mg PO DAILY 11/27/17 08/19/19 Levalbuterol Nebulized [Xopenex 1.25 mg INHALATION RT-BID PRN 06/10/18 08/19/19 Nebulized] Omeprazole 40 mg PO DAILY 06/10/18 08/19/19 Verapamil [Isoptin] 80 mg PO BID 06/10/18 08/19/19 Fluticasone/Salmeterol [Advair 1 puff INHALATION RT-BID 06/03/19 08/19/19 500-50 Diskus] HYDROcodone/APAP 5-325MG [[place] 1 tab PO Q6H PRN 06/03/19 08/19/19 5-325] Acetaminophen [Tylenol 8 Hour] 650 mg PO BID 08/19/19 08/19/19 Cholecalciferol [Vitamin D3 (25 5,000 unit PO DAILY 08/19/19 08/19/19 Mcg = 1000 Iu)] Previous Rx's Medication Instructions Recorded Albuterol Inhaler [Ventolin Hfa 1 - 2 puff INHALATION RT-Q6H PRN 08/21/19 Inhaler] #1 inhaler Budesonide-Formot 160-4.5 Mcg 2 puff INHALATION RT-BID #1 puff 08/21/19 [Symbicort 160-4.5 Mcg Inhaler] Cefuroxime Axetil [Ceftin] 500 mg PO BID 7 Days #14 tab 08/21/19 predniSONE 10 mg PO DIRECTED #30 tab 08/21/19 Allergies Allergy/AdvReac Type Severity Reaction Status Date / Time diltiazem Allergy Itching Verified 08/19/19 10:15 morphine AdvReac Confusion Verified 08/19/19 10:15 Review of Systems ROS Statement: Those systems with pertinent positive or pertinent negative responses have been documented in the HPI. ROS Other: All systems not noted in ROS Statement are negative. Past Medical History Past Medical History: Atrial Fibrillation, Asthma, Chest Pain / Angina, Heart Failure, COPD, Diabetes Mellitus, GERD/Reflux, Hyperlipidemia, Hypertension, Myocardial Infarction (CA), Osteoarthritis (OA), Pneumonia Additional Past Medical History / Comment(s): Afib RVR, NIDDM type II, neuropathy bilateral feet, arthritis multiple joints, osteoporosis, chronic anemia, falls, 2012 shingelles Last Myocardial Infarction Date:: 07/16/11 History of Any Multi-Drug Resistant Organisms: None Reported Past Surgical History: Appendectomy, Breast Surgery, Heart Catheterization, Pacemaker, Tubal Ligation Additional Past Surgical History / Comment(s): 02/2011 cardiac cath-normal, benign L breast lumpectomy, bronchoscopy, EGD/colonoscopy, bilateral cataract removals, 2010 VATS L lung d/t fibrotic lung changes. Past Anesthesia/Blood Transfusion Reactions: No Reported Reaction Additional Past Anesthesia/Blood Transfusion Reaction / Comment(s): Pt has received blood in past without reaction Type of Cardiac Device: Permanent Pacemaker Device Placement Date:: NOVEMBER 28 2017 Past Psychological History: Anxiety, Depression Smoking Status: Never smoker Past Alcohol Use History: None Reported Past Drug Use History: None Reported - Past Family History Sister(s) Family Medical History: Cancer Additional Family Medical History / Comment(s): breast CA Mother History Unknown: Yes Family Medical History: No Reported History Additional Family Medical History / Comment(s): from car accident no other hx known Father History Unknown: Yes Family Medical History: No Reported History Additional Family Medical History / Comment(s): committed suicide Daughter(s) Family Medical History: Cancer Additional Family Medical History / Comment(s): breast CA General Exam - General Exam Comments Initial Comments: 84-year-old female. Limitations: no limitations General appearance: alert Head exam: Present: atraumatic, normocephalic, normal inspection Eye exam: Present: normal appearance, PERRL, EOMI. Absent: scleral icterus, conjunctival injection, periorbital swelling ENT exam: Present: normal exam, mucous membranes moist Neck exam: Present: normal inspection. Absent: tenderness, meningismus, lymphadenopathy Respiratory exam: Present: normal lung sounds bilaterally. Absent: respiratory distress, wheezes, rales, rhonchi, stridor Cardiovascular Exam: Present: regular rate, normal rhythm, normal heart sounds. Absent: systolic murmur, diastolic murmur, rubs, gallop, clicks GI/Abdominal exam: Present: soft, tenderness (tenderness in the mid thoracic spine. No bruising.), normal bowel sounds. Absent: distended, guarding, rebound, rigid Back exam: Present: normal inspection Neurological exam: Present: alert, oriented X3, CN II-XII intact Psychiatric exam: Present: normal affect, normal mood Course Vital Signs 09/04/19 09/04/19 09/04/19 08:57 09:06 09:30 Temperature 98.0 F Pulse Rate 60 60 62 Respiratory 18 18 18 Rate Blood Pressure 147/69 147/69 147/69 O2 Sat by Pulse 98 95 96 Oximetry 09/04/19 09/04/19 09/04/19 10:00 10:30 11:00 Temperature Pulse Rate 60 62 62 Respiratory 18 18 18 Rate Blood Pressure 153/79 156/68 150/63 O2 Sat by Pulse 96 96 96 Oximetry 09/04/19 11:30 Temperature Pulse Rate 62 Respiratory 18 Rate Blood Pressure 133/59 O2 Sat by Pulse 97 Oximetry Medical Decision Making - Medical Decision Making 84-year-old female presents today for intractable back pain. Patient was diagnosed with a T8 compression fracture on 09/02. Patient at this time had some labwork obtained this night for other sources of her pain. It was found the Patient does have elevated amylase and lipase concern for pancreatitis. She reports she's never had pinkeye times before. She does have her gallbladder. She denies any significant right-sided abdominal pain nausea vomiting at this time. I discussed that this time we'll admit the Patient for evaluation for pancreatitis, and pain management for the back pain also positive possibly related to compression fracture. Patient has full range motion of lower extremities no paralysis or saddle anesthesias. Patient family was informed of these findings and agree for admission. - Lab Data Result diagrams: 09/04/19 10:02 09/04/19 10:02 Lab Results 09/04/19 09/04/19 09/04/19 Range/Units 10:00 10:02 10:02 WBC 12.0 H (3.8-10.6) k/uL RBC 3.55 L (3.80-5.40) m/uL Hgb 8.9 L (11.4-16.0) gm/dL Hct 29.2 L (34.0-46.0) % MCV 82.2 (80.0-100.0) fL MCH 25.0 (25.0-35.0) pg MCHC 30.4 L (31.0-37.0) g/dL RDW 16.8 H (11.5-15.5) % Plt Count 473 H (150-450) k/uL Neutrophils % 77 % Lymphocytes % 9 % Monocytes % 10 % Eosinophils % 2 % Basophils % 2 % Neutrophils # 9.2 H (1.3-7.7) k/uL Lymphocytes # 1.0 (1.0-4.8) k/uL Monocytes # 1.2 H (0-1.0) k/uL Eosinophils # 0.2 (0-0.7) k/uL Basophils # 0.3 H (0-0.2) k/uL Hypochromasia Moderate Anisocytosis Slight Sodium 139 (137-145) mmol/L Potassium 4.8 (3.5-5.1) mmol/L Chloride 105 (98-107) mmol/L Carbon Dioxide 29 (22-30) mmol/L Anion Gap 5 mmol/L BUN 32 H (7-17) mg/dL Creatinine 0.85 (0.52-1.04) mg/dL Est GFR (CKD-EPI)AfAm 73 (>60 ml/min/1.73 sqM) Est GFR (CKD-EPI)NonAf 63 (>60 ml/min/1.73 sqM) Glucose 102 H (74-99) mg/dL Calcium 9.1 (8.4-10.2) mg/dL Total Bilirubin 0.6 (0.2-1.3) mg/dL AST 17 (14-36) U/L ALT 12 (4-34) U/L Alkaline Phosphatase 100 (38-126) U/L Total Protein 5.9 L (6.3-8.2) g/dL Albumin 3.3 L (3.5-5.0) g/dL Amylase (30-110) U/L Lipase 3885 H (23-300) U/L Urine Color Light Yellow Urine Appearance Clear (Clear) Urine pH 6.5 (5.0-8.0) Ur Specific [place] 1.016 (1.001-1.035) Urine Protein Negative (Negative) Urine Glucose (UA) Negative (Negative) Urine Ketones Negative (Negative) Urine Blood Negative (Negative) Urine Nitrite Negative (Negative) Urine Bilirubin Negative (Negative) Urine Urobilinogen <2.0 (<2.0) mg/dL Ur Leukocyte Esterase Negative (Negative) 09/04/19 Range/Units 10:02 WBC (3.8-10.6) k/uL RBC (3.80-5.40) m/uL Hgb (11.4-16.0) gm/dL Hct (34.0-46.0) % MCV (80.0-100.0) fL MCH (25.0-35.0) pg MCHC (31.0-37.0) g/dL RDW (11.5-15.5) % Plt Count (150-450) k/uL Neutrophils % % Lymphocytes % % Monocytes % % Eosinophils % % Basophils % % Neutrophils # (1.3-7.7) k/uL Lymphocytes # (1.0-4.8) k/uL Monocytes # (0-1.0) k/uL Eosinophils # (0-0.7) k/uL Basophils # (0-0.2) k/uL Hypochromasia Anisocytosis Sodium (137-145) mmol/L Potassium (3.5-5.1) mmol/L Chloride (98-107) mmol/L Carbon Dioxide (22-30) mmol/L Anion Gap mmol/L BUN (7-17) mg/dL Creatinine (0.52-1.04) mg/dL Est GFR (CKD-EPI)AfAm (>60 ml/min/1.73 sqM) Est GFR (CKD-EPI)NonAf (>60 ml/min/1.73 sqM) Glucose (74-99) mg/dL Calcium (8.4-10.2) mg/dL Total Bilirubin (0.2-1.3) mg/dL AST (14-36) U/L ALT (4-34) U/L Alkaline Phosphatase (38-126) U/L Total Protein (6.3-8.2) g/dL Albumin (3.5-5.0) g/dL Amylase 335 H* (30-110) U/L Lipase (23-300) U/L Urine Color Urine Appearance (Clear) Urine pH (5.0-8.0) Ur Specific [place] (1.001-1.035) Urine Protein (Negative) Urine Glucose (UA) (Negative) Urine Ketones (Negative) Urine Blood (Negative) Urine Nitrite (Negative) Urine Bilirubin (Negative) Urine Urobilinogen (<2.0) mg/dL Ur Leukocyte Esterase (Negative) - Radiology Data Radiology results: report reviewed Review patient's CAT scan of her thoracic spine from for a number of her district. Evidence of an acute compression fracture at T8. Disposition Clinical Impression: Pancreatitis, Compression fracture of T8 vertebra Disposition: ADMITTED IP TO THIS [facility] Condition: Stable Is patient prescribed a controlled substance at d/c from ED?: No Referrals: Royal Farias MD [Primary Care Provider] - 1-2 days Time of Disposition: 11:43
[2019-09-04] MEDS ORDERED: IBUPROFEN 400 MG TAB PO PRN (11:44)
[2019-09-04] MEDS ORDERED: NALOXONE 0.4 MG/ML 1 ML VIAL IV PRN (11:44)
[2019-09-04] MEDS ORDERED: MORPHINE SULFATE 4 MG/ML SYRINGE IV PRN (11:44)
[2019-09-04] MEDS ORDERED: ACETAMINOPHEN TAB 325 MG TAB PO PRN (11:44)
[2019-09-04] MEDS ORDERED: KETOROLAC 30 MG/ML 1 ML VIAL IVP PRN (11:44)
[2019-09-04] MEDS ORDERED: ONDANSETRON 4 MG/2 ML VIAL IVP PRN (11:44)
--- NOTE | 2019-09-04 13:49 | P.HPIM ---
History of Present Illness This is a pleasant 84 years old female with past medical history of asthma, fibrotic changes of the lung, atrial fibrillation on Eliquis, diastolic congestive heart failure, anemia, hemorrhoids, GERD, hyperlipidemia, hypertension, osteoarthritis, anxiety and depression, chronic debility. Patient was recently discharged from the hospital from 08/19-08/21 for acute asthma exacerbation. Presents this time with back pain for about one week, nonradiating, no abdominal pain, pain was severe when she came to emergency room about 06/20, nonspecific in character. No associated nausea vomiting, no change in bowel habits, no history of fall or trauma to the back. On presentation she found to have elevated lipase and amylase and she was admitted with pancreatitis Vitals showing blood pressure 133/59 and 185/71, respiratory vitals are stable.. Labs showing leukocytosis of the 12K, hemoglobin 8.9. Platelets 473. BMP, liver enzymes and urine analysis unremarkable, lipase is elevated at 3885 and amylase elevated at 335 In the emergency room patient was given 500 mL bolus of normal saline and started on 100 mL per hour, morphine 4 mg every 4 hours and antiacids. Review of Systems CONSTITUTIONAL: No fever, no malaise, no fatigue. HEENT: No recent visual problems or hearing problems. Denied any sore throat. CARDIOVASCULAR: No orthopnea, PND, no palpitations, no syncope. PULMONARY: No shortness of breath, no cough, no hemoptysis. GASTROINTESTINAL: No diarrhea, no nausea, no vomiting, no abdominal pain. Normoactive bowel sounds. NEUROLOGICAL: No headaches, no weakness, no numbness. HEMATOLOGICAL: Denies any bleeding or petechiae. GENITOURINARY: Denies any burning micturition, frequency, or urgency. MUSCULOSKELETAL/RHEUMATOLOGICAL: Denies any joint pain, swelling, or any muscle pain. ENDOCRINE: Denies any polyuria or polydipsia. Past Medical History Past Medical History: Atrial Fibrillation, Asthma, Chest Pain / Angina, Heart Failure, COPD, Diabetes Mellitus, GERD/Reflux, Hyperlipidemia, Hypertension, Myocardial Infarction ([place]), Osteoarthritis (OA), Pneumonia Additional Past Medical History / Comment(s): Afib RVR, NIDDM type II, neuropathy bilateral feet, arthritis multiple joints, osteoporosis, chronic anemia, falls, 2013 shingel Last Myocardial Infarction Date:: 07/16/11 History of Any Multi-Drug Resistant Organisms: None Reported Past Surgical History: Appendectomy, Breast Surgery, Heart Catheterization, Pacemaker, Tubal Ligation Additional Past Surgical History / Comment(s): 02/2011 cardiac cath-normal, benign L breast lumpectomy, bronchoscopy, EGD/colonoscopy, bilateral cataract removals, 2010 VATS L lung d/t fibrotic lung changes. Past Anesthesia/Blood Transfusion Reactions: No Reported Reaction Additional Past Anesthesia/Blood Transfusion Reaction / Comment(s): Pt has received blood in past without reaction Type of Cardiac Device: Permanent Pacemaker Device Placement Date:: NOVEMBER 28 2017 Past Psychological History: Anxiety, Depression Additional Psychological History / Comment(s): Pt resides alone in an apartment. She uses either a cane or walker to ambulate. She has a nebulizer and glucometer. She drives. No outside services. Smoking Status: Never smoker Past Alcohol Use History: None Reported Past Drug Use History: None Reported - Past Family History Sister(s) Family Medical History: Cancer Additional Family Medical History / Comment(s): breast CA Mother History Unknown: Yes Family Medical History: No Reported History Additional Family Medical History / Comment(s): from car accident no other hx known Father History Unknown: Yes Family Medical History: No Reported History Additional Family Medical History / Comment(s): committed suicide Daughter(s) Family Medical History: Cancer Additional Family Medical History / Comment(s): breast CA Medications and Allergies Home Medications Medication Instructions Recorded Confirmed Type Apixaban [Eliquis] 5 mg PO BID 11/24/14 08/19/19 History Potassium Chloride [Klor-Con 10] 10 meq PO DAILY 11/26/14 08/19/19 History Glimepiride [Amaryl] 2 mg PO BID 06/07/15 08/19/19 History Furosemide [Lasix] 40 mg PO DAILY 05/20/16 08/19/19 History Nadolol [Corgard] 40 mg PO DAILY 05/20/16 08/19/19 History Cyanocobalamin (Vitamin B-12) 1,000 mcg PO DAILY 09/24/17 08/19/19 History [Vitamin B-12] Amiodarone [Cordarone] 100 mg PO DAILY 11/27/17 08/19/19 History Levalbuterol Nebulized [Xopenex 1.25 mg INHALATION RT-BID PRN 06/10/18 08/19/19 History Nebulized] Omeprazole 40 mg PO DAILY 06/10/18 08/19/19 History Verapamil [Isoptin] 80 mg PO BID 06/10/18 08/19/19 History Fluticasone/Salmeterol [Advair 1 puff INHALATION RT-BID 06/03/19 08/19/19 History 500-50 Diskus] HYDROcodone/APAP 5-325MG [[place] 1 tab PO Q6H PRN 06/03/19 08/19/19 History 5-325] Acetaminophen [Tylenol 8 Hour] 650 mg PO BID 08/19/19 08/19/19 History Cholecalciferol [Vitamin D3 (25 5,000 unit PO DAILY 08/19/19 08/19/19 History Mcg = 1000 Iu)] Albuterol Inhaler [Ventolin Hfa 1 - 2 puff INHALATION RT-Q6H PRN 08/21/19 Rx Inhaler] #1 inhaler Budesonide-Formot 160-4.5 Mcg 2 puff INHALATION RT-BID #1 puff 08/21/19 Rx [Symbicort 160-4.5 Mcg Inhaler] Cefuroxime Axetil [Ceftin] 500 mg PO BID 7 Days #14 tab 08/21/19 Rx predniSONE 10 mg PO DIRECTED #30 tab 08/21/19 Rx Allergies Allergy/AdvReac Type Severity Reaction Status Date / Time diltiazem Allergy Itching Verified 08/19/19 10:15 morphine AdvReac Confusion Verified 08/19/19 10:15 Physical Exam Vitals: Vital Signs Temp Pulse Pulse Resp BP BP Pulse Ox 09/04/19 12:15 97.8 F 58 L 17 185/71 92 L 09/04/19 11:30 62 18 133/59 97 09/04/19 11:00 62 18 150/63 96 09/04/19 10:30 62 18 156/68 96 09/04/19 10:00 60 18 153/79 96 09/04/19 09:30 62 18 147/69 96 09/04/19 09:06 60 18 147/69 95 09/04/19 08:57 98.0 F 60 18 147/69 98 Intake and Output 09/03/19 09/04/19 09/04/19 22:59 06:59 14:59 Other: Weight 61.235 kg GENERAL: The patient is alert and oriented x3, not in any acute distress. Well developed, well nourished. HEENT: Pupils are round and equally reacting to light. EOMI. No scleral icterus. No conjunctival pallor. Normocephalic, atraumatic. No pharyngeal erythema. No thyromegaly. CARDIOVASCULAR: S1 and S2 present. No murmurs, rubs, or gallops. PULMONARY: Chest is clear to auscultation, no wheezing or crackles. ABDOMEN: Soft, nontender, nondistended, normoactive bowel sounds. No palpable organomegaly. MUSCULOSKELETAL: No joint swelling or deformity. EXTREMITIES: No cyanosis, clubbing, or pedal edema. NEUROLOGICAL: Gross neurological examination did not reveal any focal deficits. SKIN: No rashes. No petechiae Results CBC & Chem 7: 09/04/19 10:02 09/04/19 10:02 Labs: Abnormal Lab Results - Last 24 Hours (Table) 09/04/19 09/04/19 09/04/19 Range/Units 10:02 10:02 10:02 WBC 12.0 H (3.8-10.6) k/uL RBC 3.55 L (3.80-5.40) m/uL Hgb 8.9 L (11.4-16.0) gm/dL Hct 29.2 L (34.0-46.0) % MCHC 30.4 L (31.0-37.0) g/dL RDW 16.8 H (11.5-15.5) % Plt Count 473 H (150-450) k/uL Neutrophils # 9.2 H (1.3-7.7) k/uL Monocytes # 1.2 H (0-1.0) k/uL Basophils # 0.3 H (0-0.2) k/uL BUN 32 H (7-17) mg/dL Glucose 102 H (74-99) mg/dL Total Protein 5.9 L (6.3-8.2) g/dL Albumin 3.3 L (3.5-5.0) g/dL Amylase 335 H* (30-110) U/L Lipase 3885 H (23-300) U/L Thrombosis Risk Factor Assmnt - Choose All That Apply Each Factor Represents 1 point: Abnormal pulmonary function (COPD) Other Risk Factors: Yes Each Risk Factor Represents 3 Points: Age 75 years or older Thrombosis Risk Factor Assessment Total Risk Factor Score: 4 Thrombosis Risk Factor Assessment Level: Moderate Risk Assessment and Plan Assessment: Acute pancreatitis chronic moderate persistent bronchial asthma, without exacerbation Previous history of VATS procedure on left lung in 2010 with chronic fibrotic changes Atrial fibrillation on anticoagulation with Eliquis History of congestive heart failure anemia Chronic diastolic dysfunction 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 Continue with hydration intravenously, pain management, bowel rest. Consult GI team. We'll check back x-ray and liver ultrasound Labs and medication were reviewed.. Continue same treatment. Continue with symptomatic treatment. Resume home medication. Monitor lytes and vitals. DVT and GI prophylaxis. Further recommendations of the clinical course of the patient DVT prophylaxis: Subcutaneous heparin GI Prophylaxis: Pepcid PT/OT: Pending Prognosis is guarded
--- NOTE | 2019-09-04 14:37 | US ---
EXAMINATION TYPE: US liver DATE OF EXAM: 09/04/2019 COMPARISON: CT 06/03/2019 CLINICAL HISTORY: 84-year-old female with pain, pancreatitis . TECHNIQUE: Multiple sonographic images of the right upper quadrant are obtained. FINDINGS: EXAM MEASUREMENTS: Liver Length: 14.8 cm Gallbladder Wall: 0.1 cm CBD: 5.5 mm Right Kidney: 9.1 X 3.7 X 4.3 cm Pancreas: visualized portions wnl. Bowel gas shadowing limits visualization of pancreatic tail. Liver: wnl Gallbladder: No stones seen Evidence for sonographic Collado's sign: No CBD: wnl Right Kidney: No hydronephrosis. IMPRESSION: No cholelithiasis, acute cholecystitis, or biliary duct dilatation. Sonographically, the visualized p ortions of the pancreas show no gross abnormality. Limited assessment of the pancreatic tail.
--- NOTE | 2019-09-04 15:32 | XR ---
EXAMINATION TYPE: XR thoracic spine 3 views, XR lumbar spine 3 views DATE OF EXAM: 09/04/2019 COMPARISON: CT 06/03/2019 HISTORY: 84-year-old female with a back pain FINDINGS: Thoracic spine: 12 rib-bearing thoracic vertebral bodies. All pedicles are visualized. Gentle dextro convex curvature mid thoracic spine. There is anterior wedging probably the T9 vertebral body. Overall 30% anterior h eight loss. Mild to moderate multilevel degenerative disc disease. Grade 1 anterolisthesis at T3-T4. Remaining alignment appears maintained. Accentuated upper thoracic kyphosis. Lumbar spine: Degenerated dextroconvex curvature. Osteopenia. There appears to be a grade 2 anterolisthesis at L5-S 1. Grade 1 retrolisthesis at L2-L3, L3-L4, L4-L5. Hypertrophic facet arthropathy throughout. Very low degenerative disc disease, advanced at L2-L3 and L5-S1. Overall vertebral body heights are preserved . Left-sided pacemaker generator with right atrial and right ventricular leads. Heart mildly enlarged. IMPRESSION: 1. Anterior wedging of a mid to lower thoracic vertebral body, probably T9 with 30% overall anterior height loss. This appears new from 06/03/2019 and could be acute or subacute. 2. Grade 2, nearly grade 3 anterolisthesis at L5-S1 secondary to pars defects with extensive degenera tive disc disease L2-L3 and L5-S1. Similar to 06/03/2019. 3. Also similar are grade 1 retrolisthesis from L2 through L5 levels.
[2019-09-04 16:54] LABS: Glucose,Whole Blood 116 mg/dL (75-99)
[2019-09-04] MEDS ORDERED: hydrALAZINE HCL 20 MG/ML 1 ML VIAL IVP PRN (18:56)
[2019-09-04 20:19] LABS: Glucose,Whole Blood 102 mg/dL (75-99)
[2019-09-04] MEDS: INSULIN ASPART (NovoLOG) 100 UNIT/ML VIAL SQ SCH (20:34)
[2019-09-04] MEDS: FAMOTIDINE 20 MG/2 ML VIAL IV SCH (20:40)
[2019-09-04] MEDS: SODIUM CHLORIDE 0.9% 1,000 ML IV SCH (20:40)
[2019-09-04] MEDS: HEPARIN SODIUM,PORCINE 5,000 UNIT/ML 1 ML VIAL SQ SCH (20:41)
[2019-09-04] MEDS ORDERED: MORPHINE SULFATE 2 MG/ML SYRINGE IVP PRN (21:13)
[2019-09-05 00:42] LABS: Glucose,Whole Blood 89 mg/dL (75-99)
[2019-09-05 01:31] LABS: Glucose,Whole Blood 193 mg/dL (75-99)
[2019-09-05 07:08] LABS: Glucose,Whole Blood 130 mg/dL (75-99)
[2019-09-05] MEDS: INSULIN ASPART (NovoLOG) 100 UNIT/ML VIAL SQ SCH ×4 (07:40→20:14)
--- NOTE | 2019-09-05 08:21 | P.PN ---
Subjective This is a pleasant 84 years old female with past medical history of asthma, fibrotic changes of the lung, atrial fibrillation on Eliquis, diastolic congestive heart failure, anemia, hemorrhoids, GERD, hyperlipidemia, hypertension, osteoarthritis, anxiety and depression, chronic debility. Patient was recently discharged from the hospital from 08/19-08/21 for acute asthma exacerbation. Presents this time with back pain for about one week, nonrad iating, no abdominal pain, pain was severe when she came to emergency room about /, nonspecific in character. No associated nausea vomiting, no change in bowel habits, no history of fall or trauma to the back. On presentation she found to have elevated lipase and amylase and she was admitted with pancreatitis Vitals showing blood pressure 133/59 and 185/71, respiratory vitals are stable.. Labs showing leukocytosis of the 12K, hemoglobin 8.9. Platelets 473. BMP, liver enzymes and urine analysis unremarkable, lipase is elevated at 3885 and amylase elevated at 335 In the emergency room patient was given 500 mL bolus of normal saline and started on 100 mL per hour, morphine 4 mg every 4 hours and antiacids. 09/05/2019 Patient this morning still in distress due to pain, her pain mainly in the mid to lower back, which looks controlled with morphine, but going to start patient on Dilaudid instead. X-ray showing possible vertebral fracture. Orthopedic team has consulted. Patient has no weakness or numbness in her lower extremities. No headache. No other neurological complaints. Although patient was diagnosed. Pancreatitis however she denies abdominal pain, no nausea vomiti ng, no change in bowel habits. Patient she feels great and I can advance diet. Vitals are stable this morning. Labs are still pending. Continue with gentle hydration Review of systems CONSTITUTIONAL: No fever, no malaise, no fatigue. HEENT: No recent visual problems or hearing problems. Denied any sore throat. CARDIOVASCULAR: No orthopnea, PND, no palpitations, no syncope. PULMONARY: No shortness of breath, no cough, no hemoptysis. GASTROINTESTINAL: No diarrhea, no nausea, no vomiting, no abdominal pain. Normoactive bowel sounds. NEUROLOGICAL: No headaches, no weakness, no numbness. HEMATOLOGICAL: Denies any bleeding or petechiae. GENITOURINARY: Denies any burning micturition, frequency, or urgency. MUSCULOSKELETAL/RHEUMATOLOGICAL: Denies any joint pain, swelling, or any muscle pain. ENDOCRINE: Denies any polyuria or polydipsia. Active Medications Generic Name Dose Route Start Last Admin Trade Name Freq PRN Reason Stop Dose Admin Acetaminophen 650 mg 09/04/19 11:44 Tylenol Tab PO Q6HR PRN Mild Pain or Fever > 100.5 Famotidine 20 mg 09/04/19 21:00 09/04/19 20:40 Pepcid IV 20 mg Q12HR MITZY Administration Heparin Sodium (Porcine) 5,000 unit 09/04/19 21:00 09/04/19 20:41 Heparin SQ 5,000 unit Q12HR MITZY Administration Hydralazine HCl 10 mg 09/04/19 18:56 09/05/19 00:27 Apresoline IVP 10 mg Q6HR PRN Administration Blood Pressure - High Hydromorphone HCl 1 mg 09/05/19 08:18 Dilaudid IVP Q4HR PRN Pain Sodium Chloride 1,000 mls @ 50 mls/hr 09/04/19 19:30 09/04/19 20:40 Saline 0.9% IV 50 mls/hr .Q20H MITZY Administration Insulin Aspart 0 unit 09/04/19 21:00 09/05/19 07:40 Novolog SQ Not Given ACHS [facility] Protocol Naloxone HCl 0.2 mg 09/04/19 11:44 Narcan IV Q2M PRN Opioid Reversal Ondansetron HCl 4 mg 09/04/19 11:44 09/05/19 01:39 Zofran IVP 4 mg Q8HR PRN Administration Nausea And Vomiting Pantoprazole Sodium 40 mg 09/05/19 09:00 Protonix IV DAILY [facility] Objective - Vital Signs Vital signs: Vital Signs Temp 97.8 F 09/05/19 07:00 Pulse 59 L 09/05/19 07:00 Resp 16 09/05/19 07:00 BP 158/70 09/05/19 07:00 Pulse Ox 90 L 09/05/19 07:00 Intake & Output 09/04/19 09/05/19 09/05/19 18:59 06:59 18:59 Weight 61.235 kg Other: # Voids 1 2 1 - Exam GENERAL: The patient is alert and oriented x3, not in any acute distress. Well developed, well nourished. HEENT: Pupils are round and equally reacting to light. EOMI. No scleral icterus. No conjunctival pallor. Normocephalic, atraumatic. No pharyngeal erythema. No thyromegaly. CARDIOVASCULAR: S1 and S2 present. No murmurs, rubs, or gallops. PULMONARY: Chest is clear to auscultation, no wheezing or crackles. ABDOMEN: Soft, nontender, nondistended, normoactive bowel sounds. No palpable organomegaly. -MUSCULOSKELETAL: No joint swelling or deformity. mid to lower Back tenderness EXTREMITIES: No cyanosis, clubbing, or pedal edema. NEUROLOGICAL: Gross neurological examination did not reveal any focal deficits. SKIN: No rashes. No petechia - Labs CBC & Chem 7: 09/04/19 10:02 09/04/19 10:02 Labs: Abnormal Lab Results - Last 24 Hours (Table) 09/04/19 09/04/19 09/04/19 Range/Units 10:02 10:02 10:02 WBC 12.0 H (3.8-10.6) k/uL RBC 3.55 L (3.80-5.40) m/uL Hgb 8.9 L (11.4-16.0) gm/dL Hct 29.2 L (34.0-46.0) % MCHC 30.4 L (31.0-37.0) g/dL RDW 16.8 H (11.5-15.5) % Plt Count 473 H (150-450) k/uL Neutrophils # 9.2 H (1.3-7.7) k/uL Monocytes # 1.2 H (0-1.0) k/uL Basophils # 0.3 H (0-0.2) k/uL BUN 32 H (7-17) mg/dL Glucose 102 H (74-99) mg/dL POC Glucose (mg/dL) (75-99) mg/dL Total Protein 5.9 L (6.3-8.2) g/dL Albumin 3.3 L (3.5-5.0) g/dL Amylase 335 H* (30-110) U/L Lipase 3885 H (23-300) U/L 09/04/19 09/04/19 09/05/19 Range/Units 16:43 20:08 01:21 WBC (3.8-10.6) k/uL RBC (3.80-5.40) m/uL Hgb (11.4-16.0) gm/dL Hct (34.0-46.0) % MCHC (31.0-37.0) g/dL RDW (11.5-15.5) % Plt Count (150-450) k/uL Neutrophils # (1.3-7.7) k/uL Monocytes # (0-1.0) k/uL Basophils # (0-0.2) k/uL BUN (7-17) mg/dL Glucose (74-99) mg/dL POC Glucose (mg/dL) 116 H 102 H 193 H (75-99) mg/dL Total Protein (6.3-8.2) g/dL Albumin (3.5-5.0) g/dL Amylase (30-110) U/L Lipase (23-300) U/L 09/05/19 Range/Units 06:56 WBC (3.8-10.6) k/uL RBC (3.80-5.40) m/uL Hgb (11.4-16.0) gm/dL Hct (34.0-46.0) % MCHC (31.0-37.0) g/dL RDW (11.5-15.5) % Plt Count (150-450) k/uL Neutrophils # (1.3-7.7) k/uL Monocytes # (0-1.0) k/uL Basophils # (0-0.2) k/uL BUN (7-17) mg/dL Glucose (74-99) mg/dL POC Glucose (mg/dL) 130 H (75-99) mg/dL Total Protein (6.3-8.2) g/dL Albumin (3.5-5.0) g/dL Amylase (30-110) U/L Lipase (23-300) U/L Assessment and Plan Assessment: Acute pancreatitis chronic moderate persistent bronchial asthma, without exacerbation Previous history of VATS procedure on left lung in 2010 with chronic fibrotic changes Atrial fibrillation on anticoagulation with Eliquis History of congestive heart failure anemia Chronic diastolic dysfunction 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 Continue with hydration intravenously, pain management, bowel rest. Consult GI team. Consult orthopedic team for her back pain. Advance diet Labs and medication were reviewed.. Continue same treatment. Continue with symptomatic treatment. Resume home medication. Monitor lytes and vitals. DVT and GI prophylaxis. Further recommendations of the clinical course of the patient DVT prophylaxis: Subcutaneous heparin GI Prophylaxis: Pepcid PT/OT: Pending Prognosis is guarded
[2019-09-05] MEDS: HEPARIN SODIUM,PORCINE 5,000 UNIT/ML 1 ML VIAL SQ SCH ×2 (08:40→20:24)
[2019-09-05] MEDS: FAMOTIDINE 20 MG/2 ML VIAL IV SCH (08:40)
[2019-09-05] MEDS: HYDROmorphone 1 MG/ML 1 ML SYRINGE IVP PRN ×2 (08:41→12:37)
[2019-09-05 08:48] LABS: Albumin 3.3 g/dL (3.5-5.0); Bilirubin, Delta 0.2 mg/dL (0.0-0.2); Bilirubin,Unconjugated 0.8 mg/dL (0.0-1.1); Magnesium 1.9 mg/dL (1.6-2.3); Potassium 4.8 mmol/L (3.5-5.1); Total Protein 5.9 g/dL (6.3-8.2)
[2019-09-05] MEDS ORDERED: PANTOPRAZOLE 40 MG/10 ML VIAL IV SCH (09:00)
[2019-09-05 09:04] LABS: Anisocytosis Slight; Basophils % (A) 0 %; Eosinophils # (A) 0.1 k/uL (0-0.7); Eosinophils % (A) 1 %; HGB 8.9 gm/dL (11.4-16.0); Hypochromasia Marked; Lymphocytes # (A) 0.9 k/uL (1.0-4.8); Lymphocytes % (A) 8 %; MCH 25.8 pg (25.0-35.0); MCHC 30.6 g/dL (31.0-37.0); MCV 84.6 fL (80.0-100.0); Mean Platelet Volume 8.1; Monocytes % (A) 9 %; Neutrophils # (A) 8.9 k/uL (1.3-7.7); Neutrophils % (A) 81 %; Platelet Count 485 k/uL (150-450); RBC 3.43 m/uL (3.80-5.40); RDW 16.5 % (11.5-15.5)
[2019-09-05 11:44] LABS: Glucose,Whole Blood 118 mg/dL (75-99)
--- NOTE | 2019-09-05 12:16 | P.CNOR ---
History of Present Illness - [facility] Consult date: 09/05/19 Consult reason: fracture History of present illness: Patient is a pleasant 84-year-old female seen at bedside this morning in consultation for back pain. 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 It waxes and wanes in severity. She did not develop any radicular symptoms and continues to deny any radicular type symptoms including numbness or tingling in the lower extremities. She has no loss of bowel or bladder function. She has no saddle anesthesia. She denies weakness. She denies tripping, following, unsteady gait or instability. She presented to [facility] on the and was discharged for follow- up regarding her spine as an outpatient. She returned to the ED here yesterday, September 04. Her pain is being controlled with oral pain medications well. She denies any new complaints today. Review of systems is negative for fever, chills, chest pain, shortness breath, nausea, vomiting, dizziness, headaches, rashes, bleeding, swelling or other. Review of Systems All systems: negative Constitutional: Denies chills, Denies fever Eyes: denies blurred vision, denies pain Ears, nose, mouth and throat: Denies headache, Denies sore throat Cardiovascular: Denies chest pain, Denies shortness of breath Respiratory: Denies cough Gastrointestinal: Denies abdominal pain, Denies diarrhea, Denies nausea, Denies vomiting Genitourinary: Denies dysuria, Denies hematuria Musculoskeletal: Denies myalgias Integumentary: Denies pruritus, Denies rash Neurological: Denies numbness, Denies weakness Psychiatric: Denies anxiety, Denies depression Endocrine: Denies fatigue, Denies weight change Past Medical History Past Medical History: Atrial Fibrillation, Asthma, Chest Pain / Angina, Heart Failure, COPD, Diabetes Mellitus, GERD/Reflux, Hyperlipidemia, Hypertension, Myocardial Infarction (MA), Osteoarthritis (OA), Pneumonia Additional Past Medical History / Comment(s): Afib RVR, NIDDM type II, neuropathy bilateral feet, arthritis multiple joints, osteoporosis, chronic anemia, falls, 2013 shingelles Last Myocardial Infarction Date:: 07/16/11 History of Any Multi-Drug Resistant Organisms: None Reported Past Surgical History: Appendectomy, Breast Surgery, Heart Catheterization, Pacemaker, Tubal Ligation Additional Past Surgical History / Comment(s): 02/2011 cardiac cath-normal, benign L breast lumpectomy, bronchoscopy, EGD/colonoscopy, bilateral cataract removals, 2010 VATS L lung d/t fibrotic lung changes. Past Anesthesia/Blood Transfusion Reactions: No Reported Reaction Additional Past Anesthesia/Blood Transfusion Reaction / Comm: Pt has received blood in past without reaction Type of Cardiac Device: Permanent Pacemaker Device Placement Date:: NOVEMBER 28 2017 Past Psychological History: Anxiety, Depression Additional Psychological History / Comment(s): Pt resides alone in an apartment. She uses either a cane or walker to ambulate. She has a nebulizer and glucometer. She drives. No outside services. Smoking Status: Never smoker Past Alcohol Use History: None Reported Past Drug Use History: None Reported - Past Family History Sister(s) Family Medical History: Cancer Additional Family Medical History / Comment(s): breast CA Mother History Unknown: Yes Family Medical History: No Reported History Additional Family Medical History / Comment(s): from car accident no other hx known Father History Unknown: Yes Family Medical History: No Reported History Additional Family Medical History / Comment(s): committed suicide Daughter(s) Family Medical History: Cancer Additional Family Medical History / Comment(s): breast CA Medications and Allergies Home Medications Medication Instructions Recorded Confirmed Type Apixaban [Eliquis] 5 mg PO BID 11/24/14 09/04/19 History Potassium Chloride [Klor-Con 10] 10 meq PO DAILY 11/26/14 09/04/19 History Glimepiride [Amaryl] 2 mg PO BID 06/07/15 09/04/19 History Furosemide [Lasix] 40 mg PO DAILY 05/20/16 09/04/19 History Nadolol [Corgard] 40 mg PO DAILY 05/20/16 09/04/19 History Amiodarone [Cordarone] 100 mg PO DAILY 11/27/17 09/04/19 History Levalbuterol Nebulized [Xopenex 1.25 mg INHALATION RT-QID PRN 06/10/18 09/04/19 History Nebulized] Omeprazole 40 mg PO DAILY 06/10/18 09/04/19 History Verapamil [Isoptin] 80 mg PO BID 06/10/18 09/04/19 History Fluticasone/Salmeterol [Advair 1 puff INHALATION RT-BID 06/03/19 09/04/19 History 500-50 Diskus] Albuterol Sulfate [Ventolin HFA] 2 puff INHALATION RT-Q6H PRN 09/05/19 09/05/19 History Allergies Allergy/AdvReac Type Severity Reaction Status Date / Time diltiazem Allergy Itching Verified 09/04/19 14:39 morphine AdvReac Confusion Verified 09/04/19 14:39 Physical Examination inspection of the back shows a mild kyphotic spine. There is no other obvious deformity. There are no wounds, erythema or ecchymoses. Mild tenderness in the midthoracic spine including paraspinal spasm in the thoracolumbar as expected. There is no fluid collection or fluctuance. There is no step-off. Lower extremities:L2 through S1 myotomes are 5 out of 5 bilaterally. L2 through S1 dermatomes are intact to light touch equal bilaterally. Reflexes aren't 1+ knee jerk and ankle jerks equal bilaterally. Negative straight leg raising or dural tension signs. Calves are soft and nontender. Negative clonus. Babinski is negative. 2+ dorsalis pedis pulse and less than 2 second capillary refill is present. Results x-rays of the thoracic and lumbar spine are reviewed. There is a compression fracture of what appears to be T9 of approximately 30%. There is no obvious bony retropulsion or instability. She has a mild kyphotic thoracic and scoli otic thoracolumbar curve. There is multiple levels of spondylosis and degenerative disc disease. In addition, she has appears to be at least a grade 2 spondylolisthesis at L5-S1 with pars defects. It is an anterolisthesis. She has multiple mild retrolistheses at the levels above this. - Labs Labs: Abnormal Lab Results - Last 24 Hours (Table) 09/04/19 09/04/19 09/05/19 Range/Units 16:43 20:08 01:21 WBC (3.8-10.6) k/uL RBC (3.80-5.40) m/uL Hgb (11.4-16.0) gm/dL Hct (34.0-46.0) % MCHC (31.0-37.0) g/dL RDW (11.5-15.5) % Plt Count (150-450) k/uL Neutrophils # (1.3-7.7) k/uL Lymphocytes # (1.0-4.8) k/uL BUN (7-17) mg/dL Glucose (74-99) mg/dL POC Glucose (mg/dL) 116 H 102 H 193 H (75-99) mg/dL Total Protein (6.3-8.2) g/dL Albumin (3.5-5.0) g/dL 09/05/19 09/05/19 09/05/19 Range/Units 06:56 07:14 07:14 WBC 11.0 H (3.8-10.6) k/uL RBC 3.43 L (3.80-5.40) m/uL Hgb 8.9 L (11.4-16.0) gm/dL Hct 29.0 L (34.0-46.0) % MCHC 30.6 L (31.0-37.0) g/dL RDW 16.5 H (11.5-15.5) % Plt Count 485 H (150-450) k/uL Neutrophils # 8.9 H (1.3-7.7) k/uL Lymphocytes # 0.9 L (1.0-4.8) k/uL BUN 23 H (7-17) mg/dL Glucose 114 H (74-99) mg/dL POC Glucose (mg/dL) 130 H (75-99) mg/dL Total Protein 5.9 L (6.3-8.2) g/dL Albumin 3.3 L (3.5-5.0) g/dL 09/05/19 Range/Units 11:24 WBC (3.8-10.6) k/uL RBC (3.80-5.40) m/uL Hgb (11.4-16.0) gm/dL Hct (34.0-46.0) % MCHC (31.0-37.0) g/dL RDW (11.5-15.5) % Plt Count (150-450) k/uL Neutrophils # (1.3-7.7) k/uL Lymphocytes # (1.0-4.8) k/uL BUN (7-17) mg/dL Glucose (74-99) mg/dL POC Glucose (mg/dL) 118 H (75-99) mg/dL Total Protein (6.3-8.2) g/dL Albumin (3.5-5.0) g/dL H & H 09/04/19 09/05/19 Range/Units 10:02 07:14 Hgb 8.9 L 8.9 L (11.4-16.0) gm/dL Hct 29.2 L 29.0 L (34.0-46.0) % Result Diagrams: 09/05/19 07:14 09/05/19 07:14 - Diagnostic results Lumbar AP/lateral x-ray: report reviewed, image reviewed Assessment and Plan (1) Compression fracture of T8 vertebra Narrative/Plan: Patient has a lower thoracic compression fracture which appears to be stable where she has no evidence of neural compromise clinically. She has multiple additional spine problems including spondylosis, degenerative disc disease and at least grade 2 anterolisthesis at L5-S1. Again she shows no signs of neurological compromise with symptoms as well as on her physical exam. She had a CAT scan apparently of the thoracic spine at [facility] however this is not reviewable currently. Recommended she wear a TLSO brace to use at all times when out of bed. A prescription has been written and I have communicated with director case management to obtain. she may participate in physical therapy. Would defer oral pain management per primary team. She may follow-up as an outpatient with Dr. Duran. Should she worsen or develop new symptoms including radiculopathy or myelopathy we will revisit immediately. Thank you Current Visit: Yes Status: Acute Priority: Medium Code(s): S22.060A - W EDGE COMPRESSION FRACTURE OF T7-T8 VERTEBRA, INIT SNOMED Code(s): 440597603 Time with Patient: Less than 30
--- NOTE | 2019-09-05 13:49 | CDI ---
Documentation Clarification Form Date: 09/05/2019 01:43:52 PM From: Collette Johnson RN, CCDS Admit Date: 09/04/2019 11:24:00 AM Patient Name: Vashti Jane Visit Number: [id number] ATTENTION: The Clinical Documentation Specialists (CDI) and [facility] Coding Staff appreciate your assistance in clarifying documentation. Please respond to the clarification below the line at the bottom and electronically sign. The CDI & [facility] Coding staff will review the response and follow-up if needed. Please note: Queries are made part of the Legal Health Record. If you have any questions, please contact the author of this message via ITS. Dr. Daniels Sheet A diagnosis of anemia lacks specificity to accurately reflect your patients severity of condition and clarification is needed. History/Risk Factors: chronic anemia, atrial fib, diastolic CHF, GERD, HTN Clinical indicators: Hemoglobin: 8.9 Hematocrit: 29.2/29 Treatment: monitoring labs In order to capture the severity of condition, please clarify the type of anemia and etiology if known: Chronic blood loss anemia Iron deficiency anemia Drug induced anemia Nutritional anemia Anemia of chronic kidney disease Anemia of chronic disease Unable to determine Other, please specify (Last Revision: June 2017) unable to determine MTDD
--- NOTE | 2019-09-05 15:06 | CONS ---
CONSULTATION DATE OF SERVICE: 09/05/2019 REASON FOR CONSULTATION: Acute pancreatitis. HISTORY OF PRESENT ILLNESS: Patient is an 84-year-old pleasant white female who came into the emergency room complaining of back pain. She dropped a cane at home and today she bent down to pick it up and he developed severe back pain that happened about a week ago. She went to the emergency room at [facility] on 2 different occasions. She had some x- rays and CAT scans done and was told she had a compression fraction of the vertebrae. In the meantime, her pain continued to progressively get worse and hence came to the emergency room at [facility] when she had labs done and was noted to have an elevated lipase at 3885 and amylase of 335, and she was admitted to hospital with acute pancreatitis. The patient however denies any abdominal pain. No nausea, no vomiting. She continues to have severe back pain. Never had pancreatitis in the past. No prior history of peptic ulcer disease or recent NSAID use. PAST MEDICAL HISTORY: Significant for atrial fibrillation, congestive heart failure, COPD, diabetes mellitus, hypertension, hyperlipidemia, gastroesophageal reflux disease, coronary artery disease status post OK in the past, type 2 diabetes mellitus, osteoporosis. PAST SURGICAL HISTORY: Appendectomy, breast surgery, cardiac catheterization, pacemaker implantation, tubal ligation, EGD, colonoscopy in the past, bilateral cataract surgery. MEDICATIONS: At home, Eliquis, K-Jenni, Amaryl, Lasix, Nadolol, Cordarone, Xopenex, omeprazole, Isoptin, Advair, [place], albuterol, prednisone, Symbicort. ALLERGIES: DILTIAZEM and MORPHINE. SOCIAL HISTORY: No smoking. No alcohol use. FAMILY HISTORY: Daughter had acute pancreatitis and breast cancer. REVIEW OF SYSTEMS: CARDIOPULMONARY: No chest pain or shortness of breath. : No dysuria or hematuria. MUSCULOSKELETAL: Unremarkable. SKIN: Unremarkable. ENDOCRINE: Unremarkable. PSYCHIATRIC: Unremarkable. NEUROLOGY: Unremarkable. ENT/VISION: Unremarkable. MUSCULOSKELETAL: Severe back pain. CONSTITUTIONAL: No recent weight loss. No fever, chills, night sweats. PHYSICAL EXAMINATION: She appears comfortable, in no apparent distress. Vital signs are stable, blood pressure 158/70, pulse rate 59, temperature 97.8. HEENT: Examination unremarkable, conjunctivae are pink, sclerae nonicteric, oral cavity no lesions. NECK: No JVD or lymph node enlargement. CHEST: Clear to auscultation. HEART: Regular rate and rhythm. ABDOMEN: Soft, it was nontender, nondistended. Bowel sounds are positive. No organomegaly. EXTREMITIES: No pedal edema. SKIN: No rashes. NEURO: Alert and oriented x3. No focal deficits. LABS: At the time of admission the hospital. Amylase is 335, lipase is 3885. ALT, AST 79 and 12 respectively. T-bilirubin and alkaline phosphatase are within normal limits. Today lipase is down to 160. WBC is 11, hemoglobin 8.8, platelets are 455. She did have a lumbar spinal x-rays done yesterday in the emergency room that showed anterior wedging of the mid to lower thoracic vertebrae suspicious for a fracture. IMPRESSION: 1. Acute pancreatitis with elevated amylase and lipase, with no clinical abdominal pain. She did present to the hospital with severe back pain. Ultrasound of the abdomen showed no evidence of gallstones or acute cholecystitis. Lipase has normalized today. No history of alcohol use. At this time etiology of pancreatitis remains unclear but appears to be very mild, but has significantly improved. 2. Severe back pain secondary to compression fracture. 3. Atrial fibrillation on Eliquis. 4. History of congestive heart failure. 5. Diabetes mellitus and hypertension. RECOMMENDATIONS: 1. Advance diet to low-fat diet. 2. Pain medications as needed. 3. Await recommendations from Orthopedics in regard to the back pain. 4. Monitor amylase and lipase closely. Thank you for this consultation. MMODL / IJN: [id number] /
[2019-09-05] MEDS: SODIUM CHLORIDE 0.9% 1,000 ML IV SCH (16:05)
[2019-09-05 16:41] LABS: Glucose,Whole Blood 104 mg/dL (75-99)
[2019-09-05] MEDS: HYDROmorphone 0.5 MG/0.5 ML SYRINGE IVP PRN ×2 (16:47→20:26)
[2019-09-05 20:13] LABS: Glucose,Whole Blood 95 mg/dL (75-99)
[2019-09-05] MEDS ORDERED: PREGABALIN 75 MG CAP PO SCH (22:00)
[2019-09-05] MEDS: LIDOCAINE 5% PATCH TOPICAL SCH (22:22)
[2019-09-05] MEDS: HYDROcodone/APAP 10-325MG 1 EACH TAB PO PRN (23:37)
[2019-09-06] MEDS: HYDROmorphone 0.5 MG/0.5 ML SYRINGE IVP PRN (01:02)
[2019-09-06] MEDS: HYDROcodone/APAP 10-325MG 1 EACH TAB PO PRN (04:39)
[2019-09-06] MEDS ORDERED: IBUPROFEN 600 MG TAB PO PRN (07:24)
[2019-09-06 07:25] LABS: Glucose,Whole Blood 91 mg/dL (75-99)
[2019-09-06] MEDS ORDERED: oxyCODONE-APAP 10-325MG 1 EACH TAB PO PRN (07:26)
[2019-09-06] MEDS: INSULIN ASPART (NovoLOG) 100 UNIT/ML VIAL SQ SCH ×5 (09:13→20:21)
[2019-09-06] MEDS: HEPARIN SODIUM,PORCINE 5,000 UNIT/ML 1 ML VIAL SQ SCH (09:18)
[2019-09-06] MEDS: PREGABALIN 75 MG CAP PO SCH ×2 (09:19→20:14)
[2019-09-06] MEDS: PANTOPRAZOLE 40 MG TABLET PO SCH (09:19)
[2019-09-06] MEDS: LIDOCAINE 5% PATCH TOPICAL SCH ×2 (09:19→17:05)
[2019-09-06 11:32] LABS: Albumin 2.9 g/dL (3.5-5.0); Calcium 8.6 mg/dL (8.4-10.2); Potassium 4.6 mmol/L (3.5-5.1); Total Bilirubin 0.7 mg/dL (0.2-1.3); Total Protein 5.4 g/dL (6.3-8.2)
[2019-09-06 12:21] LABS: Glucose,Whole Blood 105 mg/dL (75-99)
[2019-09-06] MEDS ORDERED: KETOROLAC 30 MG/ML 1 ML VIAL IVP PRN (12:31)
[2019-09-06] MEDS ORDERED: ALBUTEROL NEBULIZED 1.25 MG/3 ML INHALATION PRN (12:57)
--- NOTE | 2019-09-06 12:59 | P.PN ---
Subjective This is a pleasant 84 years old female with past medical history of asthma, fibrotic changes of the lung, atrial fibrillation on Eliquis, diastolic congestive heart failure, anemia, hemorrhoids, GERD, hyperlipidemia, hypertension, osteoarthritis, anxiety and depression, chronic debility. Patient was recently discharged from the hospital from 08/19-08/21 for acute asthma exacerbation. Presents this time with back pain for about one week, nonrad iating, no abdominal pain, pain was severe when she came to emergency room about 06/20, nonspecific in character. No associated nausea vomiting, no change in bowel habits, no history of fall or trauma to the back. On presentation she found to have elevated lipase and amylase and she was admitted with pancreatitis Vitals showing blood pressure 133/59 and 185/71, respiratory vitals are stable.. Labs showing leukocytosis of the 12K, hemoglobin 8.9. Platelets 473. BMP, liver enzymes and urine analysis unremarkable, lipase is elevated at 3885 and amylase elevated at 335 In the emergency room patient was given 500 mL bolus of normal saline and started on 100 mL per hour, morphine 4 mg every 4 hours and antiacids. 09/05/2019 Patient this morning still in distress due to pain, her pain mainly in the mid to lower back, which looks controlled with morphine, but going to start patient on Dilaudid instead. X-ray showing possible vertebral fracture. Orthopedic team has consulted. Patient has no weakness or numbness in her lower extremities. No headache. No other neurological complaints. Although patient was diagnosed. Pancreatitis however she denies abdominal pain, no nausea vomiti ng, no change in bowel habits. Patient she feels great and I can advance diet. Vitals are stable this morning. Labs are still pending. Continue with gentle hydration 09/06/2019 Patient lipase came back to normal, she is tolerating diet well. No nausea vomiting. No abdominal pain or tenderness. However patient in distress due to significant back pain at the fracture site. Orthopedic team already evaluated the patient and she has a brace at bedside. Patient will be evaluated by physical therapy today, patient is interested in going to rehab as she has difficulty in functioning and mobility due to her significant pain. Despite given high doses of pain medication and given her advanced age her pain is not very well controlled. We going to add another lidocaine patch and change narc otic to Percocet. Also increase Lyrica 250 mg twice a day. There is no pain management service in [facility] to next month 09/2019. Objective - Vital Signs Vital signs: Vital Signs Temp 98.7 F 09/06/19 07:00 Pulse 81 09/06/19 07:00 Resp 16 09/06/19 07:00 BP 108/51 09/06/19 07:00 Pulse Ox 96 09/06/19 07:00 Intake & Output 09/05/19 09/06/19 09/06/19 18:59 06:59 18:59 Other: Voiding Method Toilet # Voids 2 2 1 - Exam GENERAL: The patient is alert and oriented x3, not in any acute distress. Well developed, well nourished. HEENT: Pupils are round and equally reacting to light. EOMI. No scleral icterus. No conjunctival pallor. Normocephalic, atraumatic. No pharyngeal erythema. No thyromegaly. CARDIOVASCULAR: S1 and S2 present. No murmurs, rubs, or gallops. PULMONARY: Chest is clear to auscultation, no wheezing or crackles. ABDOMEN: Soft, nontender, nondistended, normoactive bowel sounds. No palpable organomegaly. -MUSCULOSKELETAL: No joint swelling or deformity. mid to lower Back tenderness EXTREMITIES: No cyanosis, clubbing, or pedal edema. NEUROLOGICAL: Gross neurological examination did not reveal any focal deficits. SKIN: No rashes. No petechia - Labs CBC & Chem 7: 09/05/19 07:14 09/06/19 10:45 Labs: Abnormal Lab Results - Last 24 Hours (Table) 09/05/19 09/06/19 09/06/19 Range/Units 16:30 10:45 11:41 Sodium 135 L (137-145) mmol/L BUN 19 H (7-17) mg/dL Glucose 103 H (74-99) mg/dL POC Glucose (mg/dL) 104 H 105 H (75-99) mg/dL Total Protein 5.4 L (6.3-8.2) g/dL Albumin 2.9 L (3.5-5.0) g/dL Assessment and Plan Assessment: Compression fracture of T8 vertebra Acute pancreatitis chronic moderate persistent bronchial asthma, without exacerbation Previous history of VATS procedure on left lung in 2010 with chronic fibrotic changes Atrial fibrillation on anticoagulation with Eliquis History of congestive heart failure anemia Chronic diastolic dysfunction 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 Continue with hydration intravenously, pain management, advance diet. Consult orthopedic team for her back pain. Brace is in place, discussed therapy evaluation Labs and medication were reviewed.. Continue same treatment. Continue with symptomatic treatment. Resume home medication. Monitor lytes and vitals. DVT and GI prophylaxis. Further recommendations of the clinical course of the patient DVT prophylaxis: Eliquis GI Prophylaxis: Pepcid PT/OT: Pending Prognosis is guarded
[2019-09-06 16:37] LABS: Glucose,Whole Blood 153 mg/dL (75-99)
[2019-09-06] MEDS: FAMOTIDINE 20 MG TAB PO SCH (17:04)
--- NOTE | 2019-09-06 17:35 | PN ---
PROGRESS NOTE DATE OF DICTATION: 09/06/2019 Patient is an 84-year-old pleasant white female admitted to the hospital with acute pancreatitis. She is feeling much better today. She continues to have severe back pain from recent injury. She has been on a low-fat diet, tolerating well. Repeat labs from today showed normal lipase. PHYSICAL EXAMINATION: Appears comfortable. No apparent distress. Vital signs are stable. Blood pressure 107/65, pulse rate 76, temperature 98. HEENT examination unremarkable. Conjunctivae pink. Sclerae anicteric. Oral cavity no lesions. NECK: No JVD or lymph node enlargement. CHEST: Clear to auscultation. HEART: Regular rate and rhythm. ABDOMEN: Soft. Bowel sounds are positive. No organomegaly. EXTREMITIES: No pedal edema. SKIN: No rashes. NEUROLOGIC: Alert and oriented x3. No focal deficits. LABS: Labs from today show CBC within normal limits. Lipase is normal. IMPRESSION: 1. Acute pancreatitis, resolved. Lipase is normal. 2. Compression fracture of the T8 vertebra. Orthopedics is following the patient closely. Undergoing rehab therapy. RECOMMENDATIONS: 1. Advance diet as tolerated. 2. Continue with pain medications as needed for the back pain. 3. Will sign off at this time. Please call us if needed. Thank you for this consultation. MMODL / IJN: [id number] /
[2019-09-06] MEDS: APIXABAN 5 MG TAB PO SCH (20:14)
[2019-09-06] MEDS: GLIMEPIRIDE 2 MG TAB PO SCH (20:14)
[2019-09-06] MEDS: SENNOSIDES 8.6 MG TAB PO SCH (20:14)
[2019-09-06] MEDS: VERAPAMIL 80 MG TAB PO SCH (20:14)
[2019-09-06 20:39] LABS: Glucose,Whole Blood 112 mg/dL (75-99)
[2019-09-06] MEDS ORDERED: FAMOTIDINE 20 MG TAB PO SCH (21:00)
[2019-09-06] MEDS: SYMBICORT 160-4.5 MCG INHALER INHALATION SCH (22:03)
[2019-09-07 06:47] LABS: Glucose,Whole Blood 85 mg/dL (75-99)
[2019-09-07] MEDS: INSULIN ASPART (NovoLOG) 100 UNIT/ML VIAL SQ SCH ×4 (06:56→20:50)
--- NOTE | 2019-09-07 07:15 | P.PN ---
Subjective This is a pleasant 84 years old female with past medical history of asthma, fibrotic changes of the lung, atrial fibrillation on Eliquis, diastolic congestive heart failure, anemia, hemorrhoids, GERD, hyperlipidemia, hypertension, osteoarthritis, anxiety and depression, chronic debility. Patient was recently discharged from the hospital from 08/19-08/21 for acute asthma exacerbation. Presents this time with back pain for about one week, nonrad iating, no abdominal pain, pain was severe when she came to emergency room about 06/20, nonspecific in character. No associated nausea vomiting, no change in bowel habits, no history of fall or trauma to the back. On presentation she found to have elevated lipase and amylase and she was admitted with pancreatitis Vitals showing blood pressure 133/59 and 185/71, respiratory vitals are stable.. Labs showing leukocytosis of the 12K, hemoglobin 8.9. Platelets 473. BMP, liver enzymes and urine analysis unremarkable, lipase is elevated at 3885 and amylase elevated at 335 In the emergency room patient was given 500 mL bolus of normal saline and started on 100 mL per hour, morphine 4 mg every 4 hours and antiacids. 09/05/2019 Patient this morning still in distress due to pain, her pain mainly in the mid to lower back, which looks controlled with morphine, but going to start patient on Dilaudid instead. X-ray showing possible vertebral fracture. Orthopedic team has consulted. Patient has no weakness or numbness in her lower extremities. No headache. No other neurological complaints. Although patient was diagnosed. Pancreatitis however she denies abdominal pain, no nausea vomiti ng, no change in bowel habits. Patient she feels great and I can advance diet. Vitals are stable this morning. Labs are still pending. Continue with gentle hydration 09/06/2019 Patient lipase came back to normal, she is tolerating diet well. No nausea vomiting. No abdominal pain or tenderness. However patient in distress due to significant back pain at the fracture site. Orthopedic team already evaluated the patient and she has a brace at bedside. Patient will be evaluated by physical therapy today, patient is interested in going to rehab as she has difficulty in functioning and mobility due to her significant pain. Despite given high doses of pain medication and given her advanced age her pain is not very well controlled. We going to add another lidocaine patch and change narc otic to Percocet. Also increase Lyrica 250 mg twice a day. There is no pain management service in [facility] hospital to next month 09/2019. 09/07/2019 09/07/2019 Patient back pain is rated today about 67/10, she was noticed sitting at the age of bed without brace, patient instructed to use her brace whenever she is sitting up or standing/walking and she agrees. She is less distress due to pain compared to yesterday. She is tolerating her diet well. Patient pending placement to [facility] for inpatient rehab, [place]. Patient instructed to follow up with her orthopedic upon discharge and she agrees. GI team input is appreciated and they signed off the case Objective - Vital Signs Vital signs: Vital Signs Temp 97.8 F 09/07/19 01:47 Pulse 70 09/07/19 01:47 Resp 16 09/07/19 03:52 BP 102/66 09/07/19 01:47 Pulse Ox 99 09/07/19 01:47 Intake & Output 09/06/19 09/07/19 09/07/19 18:59 06:59 18:59 Other: Voiding Method Toilet # Voids 2 1 - Exam GENERAL: The patient is alert and oriented x3, not in any acute distress. Well developed, well nourished. HEENT: Pupils are round and equally reacting to light. EOMI. No scleral icterus. No conjunctival pallor. Normocephalic, atraumatic. No pharyngeal erythema. No thyromegaly. CARDIOVASCULAR: S1 and S2 present. No murmurs, rubs, or gallops. PULMONARY: Chest is clear to auscultation, no wheezing or crackles. ABDOMEN: Soft, nontender, nondistended, normoactive bowel sounds. No palpable organomegaly. -MUSCULOSKELETAL: No joint swelling or deformity. mid to lower Back tenderness EXTREMITIES: No cyanosis, clubbing, or pedal edema. NEUROLOGICAL: Gross neurological examination did not reveal any focal deficits. SKIN: No rashes. No petechia - Labs CBC & Chem 7: 09/05/19 07:14 09/06/19 10:45 Labs: Abnormal Lab Results - Last 24 Hours (Table) 09/06/19 09/06/19 09/06/19 Range/Units 10:45 11:41 16:32 Sodium 135 L (137-145) mmol/L BUN 19 H (7-17) mg/dL Glucose 103 H (74-99) mg/dL POC Glucose (mg/dL) 105 H 153 H (75-99) mg/dL Total Protein 5.4 L (6.3-8.2) g/dL Albumin 2.9 L (3.5-5.0) g/dL 09/06/19 Range/Units 20:19 Sodium (137-145) mmol/L BUN (7-17) mg/dL Glucose (74-99) mg/dL POC Glucose (mg/dL) 112 H (75-99) mg/dL Total Protein (6.3-8.2) g/dL Albumin (3.5-5.0) g/dL Assessment and Plan Assessment: Compression fracture of T8 vertebra Acute pancreatitis chronic moderate persistent bronchial asthma, without exacerbation Previous history of VATS procedure on left lung in 2010 with chronic fibrotic changes Atrial fibrillation on anticoagulation with Eliquis History of congestive heart failure anemia Chronic diastolic dysfunction 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 Continue with hydration intravenously, pain management, advance diet. Consult orthopedic team for her back pain. Brace is in place, discussed therapy evaluation Labs and medication were reviewed.. Continue same treatment. Continue with symptomatic treatment. Resume home medication. Monitor lytes and vitals. DVT and GI prophylaxis. Further recommendations of the clinical course of the patient DVT prophylaxis: Eliquis GI Prophylaxis: Pepcid PT/OT: Pending Prognosis is guarded
[2019-09-07] MEDS: SYMBICORT 160-4.5 MCG INHALER INHALATION SCH ×2 (08:09→20:04)
[2019-09-07] MEDS: KETOROLAC 30 MG/ML 1 ML VIAL IVP PRN (08:10)
[2019-09-07] MEDS: PREGABALIN 75 MG CAP PO SCH ×2 (08:11→20:50)
[2019-09-07] MEDS: FAMOTIDINE 20 MG TAB PO SCH (08:11)
[2019-09-07] MEDS: SENNOSIDES 8.6 MG TAB PO SCH ×2 (08:11→21:48)
[2019-09-07] MEDS: PANTOPRAZOLE 40 MG TABLET PO SCH (08:11)
[2019-09-07] MEDS: AMIODARONE 100 MG TAB PO SCH (08:11)
[2019-09-07] MEDS: POTASSIUM CHLORIDE ER 10 MEQ TAB.ER.PRT PO SCH (08:11)
[2019-09-07] MEDS: NADOLOL 20 MG TAB PO SCH (08:11)
[2019-09-07] MEDS: VERAPAMIL 80 MG TAB PO SCH ×2 (08:11→20:58)
[2019-09-07] MEDS: APIXABAN 5 MG TAB PO SCH ×2 (08:12→20:50)
[2019-09-07] MEDS: LIDOCAINE 5% PATCH TOPICAL SCH ×2 (08:12)
[2019-09-07] MEDS: GLIMEPIRIDE 2 MG TAB PO SCH ×2 (08:12→20:50)
[2019-09-07] MEDS: FUROSEMIDE 40 MG TAB PO SCH (08:12)
[2019-09-07 12:15] LABS: Glucose,Whole Blood 146 mg/dL (75-99)
[2019-09-07 16:45] LABS: Glucose,Whole Blood 119 mg/dL (75-99)
[2019-09-07 20:38] LABS: Glucose,Whole Blood 162 mg/dL (75-99)
[2019-09-08 06:59] LABS: Glucose,Whole Blood 114 mg/dL (75-99)
[2019-09-08] MEDS: INSULIN ASPART (NovoLOG) 100 UNIT/ML VIAL SQ SCH ×4 (07:02→20:17)
[2019-09-08 07:59] LABS: Potassium 4.6 mmol/L (3.5-5.1)
[2019-09-08 08:11] LABS: Anisocytosis Slight; Basophils % (A) 0 %; Eosinophils # (A) 0.2 k/uL (0-0.7); Eosinophils % (A) 2 %; HCT 31.2 % (34.0-46.0); HGB 9.4 gm/dL (11.4-16.0); Hypochromasia Marked; Lymphocytes # (A) 1.1 k/uL (1.0-4.8); Lymphocytes % (A) 12 %; MCV 86.6 fL (80.0-100.0); Mean Platelet Volume 7.5; Monocytes % (A) 11 %; Neutrophils # (A) 6.4 k/uL (1.3-7.7); Neutrophils % (A) 71 %; Platelet Count 375 k/uL (150-450)
[2019-09-08] MEDS: PREGABALIN 75 MG CAP PO SCH ×2 (09:01→20:58)
[2019-09-08] MEDS: VERAPAMIL 80 MG TAB PO SCH ×2 (09:01→21:08)
[2019-09-08] MEDS: POTASSIUM CHLORIDE ER 10 MEQ TAB.ER.PRT PO SCH (09:01)
[2019-09-08] MEDS: FAMOTIDINE 20 MG TAB PO SCH (09:01)
[2019-09-08] MEDS: APIXABAN 5 MG TAB PO SCH ×2 (09:02→20:58)
[2019-09-08] MEDS: GLIMEPIRIDE 2 MG TAB PO SCH ×2 (09:02→20:58)
[2019-09-08] MEDS: KETOROLAC 30 MG/ML 1 ML VIAL IVP PRN (09:02)
[2019-09-08] MEDS: SENNOSIDES 8.6 MG TAB PO SCH ×2 (09:02→20:58)
[2019-09-08] MEDS: AMIODARONE 100 MG TAB PO SCH (09:02)
[2019-09-08] MEDS: FUROSEMIDE 40 MG TAB PO SCH (09:02)
[2019-09-08] MEDS: LIDOCAINE 5% PATCH TOPICAL SCH ×2 (09:07)
[2019-09-08] MEDS: NADOLOL 20 MG TAB PO SCH (09:08)
[2019-09-08] MEDS: PANTOPRAZOLE 40 MG TABLET PO SCH (09:08)
[2019-09-08] MEDS: ALBUTEROL NEBULIZED 2.5 MG/3 ML INHALATION PRN ×2 (09:39→18:44)
[2019-09-08] MEDS: SYMBICORT 160-4.5 MCG INHALER INHALATION SCH ×2 (09:39→18:44)
[2019-09-08] MEDS ORDERED: SODIUM CHLORIDE 0.9% 500 ML 500 ML IV ONE (11:34)
[2019-09-08] MEDS ORDERED: SODIUM CHLORIDE 0.9% 1,000 ML IV SCH ×2 (11:45→18:30)
[2019-09-08 11:52] LABS: Glucose,Whole Blood 139 mg/dL (75-99)
[2019-09-08 16:22] LABS: Calcium 8.9 mg/dL (8.4-10.2); Potassium 4.5 mmol/L (3.5-5.1)
[2019-09-08 17:04] LABS: Glucose,Whole Blood 76 mg/dL (75-99)
[2019-09-08 20:03] LABS: Glucose,Whole Blood 122 mg/dL (75-99)
[2019-09-09] MEDS: INSULIN ASPART (NovoLOG) 100 UNIT/ML VIAL SQ SCH ×2 (06:54→13:04)
[2019-09-09] MEDS: HYDROcodone/APAP 10-325MG 1 EACH TAB PO PRN ×2 (06:57→13:12)
[2019-09-09 07:05] LABS: Glucose,Whole Blood 110 mg/dL (75-99)
[2019-09-09 07:53] VITALS: BP 147/75; RESP 20; TEMP 98.4
[2019-09-09] MEDS: POTASSIUM CHLORIDE ER 10 MEQ TAB.ER.PRT PO SCH (09:25)
[2019-09-09] MEDS: PANTOPRAZOLE 40 MG TABLET PO SCH (09:25)
[2019-09-09] MEDS: APIXABAN 5 MG TAB PO SCH (09:25)
[2019-09-09] MEDS: AMIODARONE 100 MG TAB PO SCH (09:25)
[2019-09-09] MEDS: GLIMEPIRIDE 2 MG TAB PO SCH (09:25)
[2019-09-09] MEDS: VERAPAMIL 80 MG TAB PO SCH (09:25)
[2019-09-09] MEDS: NADOLOL 20 MG TAB PO SCH (09:25)
[2019-09-09] MEDS: FAMOTIDINE 20 MG TAB PO SCH (09:26)
[2019-09-09] MEDS: SENNOSIDES 8.6 MG TAB PO SCH (09:26)
[2019-09-09] MEDS: FUROSEMIDE 40 MG TAB PO SCH (09:26)
[2019-09-09] MEDS: PREGABALIN 75 MG CAP PO SCH (09:27)
[2019-09-09] MEDS: SYMBICORT 160-4.5 MCG INHALER INHALATION SCH (09:37)
[2019-09-09 12:08] LABS: Glucose,Whole Blood 154 mg/dL (75-99)
[2019-09-09] MEDS: ALBUTEROL NEBULIZED 2.5 MG/3 ML INHALATION PRN (12:40)
[2019-09-09 12:53] VITALS: PULSE 86
--- NOTE | 2019-09-09 12:55 | P.PN ---
Subjective This is a pleasant 84 years old female with past medical history of asthma, fibrotic changes of the lung, atrial fibrillation on Eliquis, diastolic congestive heart failure, anemia, hemorrhoids, GERD, hyperlipidemia, hypertension, osteoarthritis, anxiety and depression, chronic debility. Patient was recently discharged from the hospital from 08/19-08/21 for acute asthma exacerbation. Presents this time with back pain for about one week, nonrad iating, no abdominal pain, pain was severe when she came to emergency room about 06/20, nonspecific in character. No associated nausea vomiting, no change in bowel habits, no history of fall or trauma to the back. On presentation she found to have elevated lipase and amylase and she was admitted with pancreatitis Vitals showing blood pressure 133/59 and 185/71, respiratory vitals are stable.. Labs showing leukocytosis of the 12K, hemoglobin 8.9. Platelets 473. BMP, liver enzymes and urine analysis unremarkable, lipase is elevated at 3885 and amylase elevated at 335 In the emergency room patient was given 500 mL bolus of normal saline and started on 100 mL per hour, morphine 4 mg every 4 hours and antiacids. 09/05/2019 Patient this morning still in distress due to pain, her pain mainly in the mid to lower back, which looks controlled with morphine, but going to start patient on Dilaudid instead. X-ray showing possible vertebral fracture. Orthopedic team has consulted. Patient has no weakness or numbness in her lower extremities. No headache. No other neurological complaints. Although patient was diagnosed. Pancreatitis however she denies abdominal pain, no nausea vomiti ng, no change in bowel habits. Patient she feels great and I can advance diet. Vitals are stable this morning. Labs are still pending. Continue with gentle hydration 09/06/2019 Patient lipase came back to normal, she is tolerating diet well. No nausea vomiting. No abdominal pain or tenderness. However patient in distress due to significant back pain at the fracture site. Orthopedic team already evaluated the patient and she has a brace at bedside. Patient will be evaluated by physical therapy today, patient is interested in going to rehab as she has difficulty in functioning and mobility due to her significant pain. Despite given high doses of pain medication and given her advanced age her pain is not very well controlled. We going to add another lidocaine patch and change narc otic to Percocet. Also increase Lyrica 250 mg twice a day. There is no pain management service in [facility] this hospital to next month 09/2019. 09/07/2019 09/07/2019 Patient back pain is rated today about 67/10, she was noticed sitting at the age of bed without brace, patient instructed to use her brace whenever she is sitting up or standing/walking and she agrees. She is less distress due to pain compared to yesterday. She is tolerating her diet well. Patient pending placement to [facility] for inpatient rehab, [place]. Patient instructed to follow up with her orthopedic upon discharge and she agrees. GI team input is appreciated and they signed off the case 09/08/2019 Patient is doing well and her pain is better controlled, brace is in place. I discussed with the patient's her problems, family at bedside upon her request. Her creatinine slightly elevated today to 1.2, mostly from dehydration. We will give some fluids, and check her creatinine Objective - Vital Signs Vital signs: Vital Signs Temp 98.1 F 09/08/19 07:09 Pulse 78 09/08/19 09:52 Resp 17 09/08/19 07:09 BP 136/75 09/08/19 07:09 Pulse Ox 92 L 09/08/19 07:09 Intake & Output 09/07/19 09/08/19 09/08/19 18:59 06:59 18:59 Intake Total 1180 Balance 1180 Intake: Oral 1180 Other: # Voids 2 1 - Exam GENERAL: The patient is alert and oriented x3, not in any acute distress. Well developed, well nourished. HEENT: Pupils are round and equally reacting to light. EOMI. No scleral icterus. No conjunctival pallor. Normocephalic, atraumatic. No pharyngeal erythema. No t hyromegaly. CARDIOVASCULAR: S1 and S2 present. No murmurs, rubs, or gallops. PULMONARY: Chest is clear to auscultation, no wheezing or crackles. ABDOMEN: Soft, nontender, nondistended, normoactive bowel sounds. No palpable organomegaly. -MUSCULOSKELETAL: No joint swelling or deformity. mid to lower Back tenderness EXTREMITIES: No cyanosis, clubbing, or pedal edema. NEUROLOGICAL: Gross neurological examination did not reveal any focal deficits. SKIN: No rashes. No petechia - Labs CBC & Chem 7: 09/08/19 06:43 09/08/19 15:51 Labs: Abnormal Lab Results - Last 24 Hours (Table) 09/07/19 09/07/19 09/07/19 Range/Units 12:04 16:34 20:37 RBC (3.80-5.40) m/uL Hgb (11.4-16.0) gm/dL Hct (34.0-46.0) % MCHC (31.0-37.0) g/dL RDW (11.5-15.5) % BUN (7-17) mg/dL Creatinine (0.52-1.04) mg/dL Glucose (74-99) mg/dL POC Glucose (mg/dL) 146 H 119 H 162 H (75-99) mg/dL 09/08/19 09/08/19 09/08/19 Range/Units 06:43 06:43 06:48 RBC 3.60 L (3.80-5.40) m/uL Hgb 9.4 L (11.4-16.0) gm/dL Hct 31.2 L (34.0-46.0) % MCHC 30.0 L (31.0-37.0) g/dL RDW 17.0 H (11.5-15.5) % BUN 23 H (7-17) mg/dL Creatinine 1.20 H (0.52-1.04) mg/dL Glucose 112 H (74-99) mg/dL POC Glucose (mg/dL) 114 H (75-99) mg/dL Assessment and Plan Assessment: Compression fracture of T8 vertebra Acute kidney injury, rule out prerenal. 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 Continue with hydration intravenously, pain management, advance diet. Consult orthopedic team for her back pain. Brace is in place, discussed therapy evaluation if some fluids and monitor creatinine Labs and medication were reviewed.. Continue same treatment. Continue with symptomatic treatment. Resume home medication. Monitor lytes and vitals. DVT and GI prophylaxis. Further recommendations of the clinical course of the patient DVT prophylaxis: Eliquis GI Prophylaxis: Pepcid PT/OT: Pending Prognosis is guarded
[2019-09-09] MEDS: LIDOCAINE 5% PATCH TOPICAL SCH ×2 (13:04→13:05)
--- NOTE | 2019-09-09 13:08 | P.DS ---
Providers Date of admission: 09/04/19 11:24 Attending physician: Kashif Philippe Consults: 09/04/19 11:44 Consult Physician Stat Consulting Provider: Krystal Gibson Consult Reason/Comments: Pancreatitis Do you want consulting provider notified?: Yes 09/04/19 18:48 Consult Physician Urgent Consulting Provider: Jessi Duran Consult Reason/Comments: vertebral fracture Do you want consulting provider notified?: Yes Primary care physician: [facility] Course: Diagnoses: Compression fracture of T8 vertebra Acute kidney injury, rule out prerenal. 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 Patient was recently discharged from the hospital from 08/19-08/21 for acute asthma exacerbation. Presents this time with back pain for about one week, nonradiating, no abdominal pain, pain was severe when she came to emergency room about 10/10, nonspecific in character. No associated nausea vomiting, no change in bowel habits, no history of fall or trauma to the back. On presentation she found to have elevated lipase and amylase and she was admitted with pancreatitis. Patient was treated with IV fluids, bowel rest and pain management, her lipase came back to normal and patient start diet and tolerated well. Orthopedic evaluated the patient for compression of fracture of T8 vertebra and they recommended a brace which is provided at bedside, patient pain eventually is been controlled with Lyrica, Percocet and lidocaine patch, however represent atelectatic can be tapered off as pain becomes more controlled at the discretion of her doctor. She had transient elevation in creatinine which came back normal with IV fluid. On the day of discharge patient pain is controlled, she denies any other symptoms. She has chest pain, dyspnea no abdominal pain, no change in urine or bowel habits. No nausea vomiting. Problems and management plan were discussed with the patient and he verbalized understanding and acceptance Patient was found stable and can be discharged home however he needs follow-up as an outpatient. Patient was instructed to follow up with PCP within one week and patient agrees. Also patient was instructed to follow up with her orthopedic in 2-3 weeks she agrees Gen: patient is a AAOx3, no distress CVS: S1-S2, RRR, no murmur Lungs: B/L CTA, no wheezing Abdomen: soft, no distention, no tenderness, positive bowel sounds Extremity: no leg edema or induration Musculoskeletal: Lower thoracic spine tenderness, brace is in place Time spent more than 35 minutes Patient Condition at Discharge: Stable Plan - Discharge Summary Discharge Rx Participant: Yes New Discharge Prescriptions: New Lidocaine 5% Patch [Lidoderm 5% Patch] 1 patch TOPICAL DAILY patch Lidocaine 5% Patch [Lidoderm 5% Patch] 1 patch TOPICAL DAILY patch Pregabalin [Lyrica] 150 mg PO BID #120 cap HYDROcodone/APAP 10-325MG [[place] 10-325] 1 each PO Q6H PRN #8 tab PRN Reason: Pain INSULIN ASPART (NovoLOG) [NovoLOG (formulary)] 0 unit SQ ACHS vial Sennosides [Senokot] 8.6 mg PO BID #0 tab Continue Apixaban [Eliquis] 5 mg PO BID Potassium Chloride [Klor-Con 10] 10 meq PO DAILY Glimepiride [Amaryl] 2 mg PO BID Furosemide [Lasix] 40 mg PO DAILY Nadolol [Corgard] 40 mg PO DAILY Amiodarone [Cordarone] 100 mg PO DAILY Verapamil [Isoptin] 80 mg PO BID Omeprazole 40 mg PO DAILY Levalbuterol Nebulized [Xopenex Nebulized] 1.25 mg INHALATION RT-QID PRN PRN Reason: Shortness Of Breath Fluticasone/Salmeterol [Advair 500-50 Diskus] 1 puff INHALATION RT-BID Albuterol Sulfate [Ventolin HFA] 2 puff INHALATION RT-Q6H PRN PRN Reason: Shortness Of Breath Discharge Medication List Apixaban [Eliquis] 5 mg PO BID 11/24/14 [History] Potassium Chloride [Klor-Con 10] 10 meq PO DAILY 11/26/14 [History] Glimepiride [Amaryl] 2 mg PO BID 06/07/15 [History] Furosemide [Lasix] 40 mg PO DAILY 05/20/16 [History] Nadolol [Corgard] 40 mg PO DAILY 05/20/16 [History] Amiodarone [Cordarone] 100 mg PO DAILY 11/27/17 [History] Levalbuterol Nebulized [Xopenex Nebulized] 1.25 mg INHALATION RT-QID PRN 06/10/18 [History] Omeprazole 40 mg PO DAILY 06/10/18 [History] Verapamil [Isoptin] 80 mg PO BID 06/10/18 [History] Fluticasone/Salmeterol [Advair 500-50 Diskus] 1 puff INHALATION RT-BID 06/03/19 [History] Albuterol Sulfate [Ventolin HFA] 2 puff INHALATION RT-Q6H PRN 09/05/19 [History] HYDROcodone/APAP 10-325MG [[place] 10-325] 1 each PO Q6H PRN #8 tab 09/09/19 [Rx] INSULIN ASPART (NovoLOG) [NovoLOG (formulary)] 0 unit SQ ACHS vial 09/09/19 [Rx] Lidocaine 5% Patch [Lidoderm 5% Patch] 1 patch TOPICAL DAILY patch 09/09/19 [Rx] Lidocaine 5% Patch [Lidoderm 5% Patch] 1 patch TOPICAL DAILY patch 09/09/19 [Rx] Pregabalin [Lyrica] 150 mg PO BID #120 cap 09/09/19 [Rx] Sennosides [Senokot] 8.6 mg PO BID #0 tab 09/09/19 [Rx] Follow up Appointment(s)/Referral(s): [facility], [NON-STAFF] - Jessi Duran DO [Doctor of Osteopathic Medicine] - 3 Weeks Royal Farias MD [Primary Care Provider] - 1-2 days Joan Rodas [NON-STAFF] - As Needed Prabha Hall [NON-STAFF] - Activity/Diet/Wound Care/Special Instructions: TLSO when out of bed. Physical therapy as tolerated. No bending over at waist, lifting more than 1 pound, or twisting TLSO brace will be delivered on the evening of 09/05/19. Resume previous diet Activities Limited till you see your doctor Discharge Disposition: TRANSFER TO SNF/ECF
--- NOTE | 2019-09-12 07:16 | CDI ---
Documentation Clarification Form Date: 09/12/2019 From: Jac Quick Phone: If you have a question about this query, please contact Susana Suárez, Director Of Collections And Archives at [phone] between 8am and 5pm. Admit Date: 09/04/19 Discharge Date: 09/09/19 Patient Name: Vashti Jane Visit Number: [id number] ATTENTION: The Clinical Documentation Specialists (CDI) and [facility] Coding Staff appreciate your assistance in clarifying documentation. Please respond to the clarification below the line at the bottom and electronically sign. The CDI & [facility] Coding staff will review the response and follow-up if needed. Please note: Queries are made part of the Legal Health Record. If you have any questions, please contact the author of this message via ITS. Dear Jeremiah Cutler, Patient has been diagnosed with Compression fracture of T8 vertebra Patient history/risk factors: Degenerated dextroconvex curvature. Osteopenia, osteoporosis, 84 years. Clinical Indicators: Patient has a lower thoracic compression fracture which appears to be stable where she has no evidence of neural compromise clinically. X-ray results : Mild to moderate multilevel degenerative disc disease.,Lumbar spine shows Degenerated dextroconvex curvature.Osteopenia Treatment: Brace and conservative treatment. Orthopedic evaluated the patient for compression of fracture of T8 vertebra and they recommended a brace which is provided at bedside, patient pain eventually is been controlled with Lyrica, Percocet and lidocaine patch In your professional opinion, please specify Fracture type: Due to Traumatic Due to Osteoporosis (specify type if known): Age related Disuse Drug induced Idiopathic Postmenopausal Postsurgical malabsorption Post-traumatic Other (please specify): Unable to determine multifactorial , age related , post menopausal, MTDD
== END 2019-09-09 15:03 | DRG 542 ==
LOC: EC 08:56 → 4SSUR 11:24
PROVIDERS: ADMIT Hospitalist; ATTEND Hospitalist
DX: M80.08XA Age-related osteoporosis with current pathological fracture, vertebra(e), initial encounter for fracture (principal); K85.90 Acute pancreatitis without necrosis or infection, unspecified; I50.32 Chronic diastolic (congestive) heart failure; N17.9 Acute kidney failure, unspecified; D64.9 Anemia, unspecified; E11.9 Type 2 diabetes mellitus without complications; E78.5 Hyperlipidemia, unspecified; E86.0 Dehydration; F41.8 Other specified anxiety disorders; I11.0 Hypertensive heart disease with heart failure; I25.10 Atherosclerotic heart disease of native coronary artery without angina pectoris; I27.29 Other secondary pulmonary hypertension; I48.91 Unspecified atrial fibrillation; J44.9 Chronic obstructive pulmonary disease, unspecified; R53.81 Other malaise; J84.10 Pulmonary fibrosis, unspecified; K21.9 Gastro-esophageal reflux disease without esophagitis; M51.37 Other intervertebral disc degeneration, lumbosacral region; X50.1XXA Overexertion from prolonged static or awkward postures, initial encounter; I25.2 Old myocardial infarction; Z79.01 Long term (current) use of anticoagulants; Z79.51 Long term (current) use of inhaled steroids; Z79.84 Long term (current) use of oral hypoglycemic drugs; Z79.899 Other long term (current) drug therapy; Z80.3 Family history of malignant neoplasm of breast; Z90.49 Acquired absence of other specified parts of digestive tract; Z98.51 Tubal ligation status; Z98.890 Other specified postprocedural states
CPT/HCPCS: 36415; 72070; 72100; 76705; 80048; 80053; 80076; 81003; 82150; 83690; 83735; 85025; 94640; 96361; 96374; 96375; 99285

== ENCOUNTER 2019-09-26 09:31 | Inpatient (IN) | payer MEDICARE ==
[2019-09-26] MEDS ORDERED: SODIUM CHLORIDE 0.9% 1,000 ML IV STA (10:16)
[2019-09-26] MEDS ORDERED: IPRATROPIUM-ALBUTEROL 3 ML NEB INHALATION STA (10:16)
[2019-09-26] MEDS ORDERED: methylPREDNISolone SOD SUCCI 125 MG/2 ML VIAL IV STA (10:16)
--- NOTE | 2019-09-26 10:21 | ED ---
Weakness HPI - General Chief complaint: Weakness Stated complaint: weakness Time Seen by Provider: 09/26/19 09:41 Source: patient, RN notes reviewed, old records reviewed Mode of arrival: wheelchair Limitations: no limitations - History of Present Illness Initial comments: This 84-year-old female history of COPD who was just discharged from a local shelter 3 days ago who presents with complaints of progressively worsening weakness. She also short of breath today she denies any overt fevers chills or sweats she believes she is drinking enough fluids and eating enough food she also states she's been getting more frequently. No chest pain no focal weakness no other modifying factors at this time she denies any rhinorrhea. MD Complaint: generalized weakness - Related Data Home Medications Medication Instructions Recorded Confirmed Apixaban [Eliquis] 5 mg PO BID 11/24/14 09/26/19 Potassium Chloride [Klor-Con 10] 10 meq PO DAILY 11/26/14 09/26/19 Glimepiride [Amaryl] 2 mg PO BID 06/07/15 09/26/19 Furosemide [Lasix] 40 mg PO DAILY 05/20/16 09/26/19 Nadolol [Corgard] 40 mg PO DAILY 05/20/16 09/26/19 Amiodarone [Cordarone] 100 mg PO DAILY 11/27/17 09/26/19 Levalbuterol Nebulized [Xopenex 1.25 mg INHALATION RT-BID PRN 06/10/18 09/26/19 Nebulized] Omeprazole 40 mg PO DAILY 06/10/18 09/26/19 Verapamil [Isoptin] 80 mg PO BID 06/10/18 09/26/19 Fluticasone/Salmeterol [Advair 1 puff INHALATION RT-BID 06/03/19 09/26/19 500-50 Diskus] Acetaminophen [Tylenol 8 Hour] 650 mg PO BID 09/26/19 09/26/19 Cholecalciferol [Vitamin D3 (25 5,000 unit PO DAILY 09/26/19 09/26/19 Mcg = 1000 Iu)] Cyanocobalamin (Vitamin B-12) 1,000 mcg PO DAILY 09/26/19 09/26/19 [Vitamin B-12] Docusate [Colace] 100 mg PO DAILY 09/26/19 09/26/19 Ferrous Gluconate 324 mg PO DAILY 09/26/19 09/26/19 HYDROcodone/APAP 5-325MG [[place] 1 tab PO Q6H PRN 09/26/19 09/26/19 5-325] predniSONE 10 mg PO DAILY 09/26/19 09/26/19 Allergies Allergy/AdvReac Type Severity Reaction Status Date / Time diltiazem Allergy Itching Verified 09/26/19 10:45 morphine AdvReac Confusion Verified 09/26/19 10:45 Review of Systems ROS Statement: Those systems with pertinent positive or pertinent negative responses have been documented in the HPI. ROS Other: All systems not noted in ROS Statement are negative. Past Medical History Past Medical History: Atrial Fibrillation, Asthma, Chest Pain / Angina, Heart Failure, COPD, Diabetes Mellitus, GERD/Reflux, Hyperlipidemia, Hypertension, Myocardial Infarction ([place]), Osteoarthritis (OA), Pneumonia Additional Past Medical History / Comment(s): Afib RVR, NIDDM type II, neuropathy bilateral feet, arthritis multiple joints, osteoporosis, chronic anemia, falls, 2013 shingelles Last Myocardial Infarction Date:: 07/16/11 History of Any Multi-Drug Resistant Organisms: None Reported Past Surgical History: Appendectomy, Breast Surgery, Heart Catheterization, Pacemaker, Tubal Ligation Additional Past Surgical History / Comment(s): 02/2011 cardiac cath-normal, benign L breast lumpectomy, bronchoscopy, EGD/colonoscopy, bilateral cataract removals, 2010 VATS L lung d/t fibrotic lung changes. Past Anesthesia/Blood Transfusion Reactions: No Reported Reaction Additional Past Anesthesia/Blood Transfusion Reaction / Comment(s): Pt has received blood in past without reaction Type of Cardiac Device: Permanent Pacemaker Device Placement Date:: NOVEMBER 28 2017 Past Psychological History: Anxiety, Depression Smoking Status: Never smoker Past Alcohol Use History: None Reported Past Drug Use History: None Reported - Past Family History Sister(s) Family Medical History: Cancer Additional Family Medical History / Comment(s): breast CA Mother History Unknown: Yes Family Medical History: No Reported History Additional Family Medical History / Comment(s): from car accident no other hx known Father History Unknown: Yes Family Medical History: No Reported History Additional Family Medical History / Comment(s): committed suicide Daughter(s) Family Medical History: Cancer Additional Family Medical History / Comment(s): breast CA General Exam - General Exam Comments Initial Comments: This a well-developed well-nourished alert oriented history female Limitations: no limitations General appearance: alert, lethargic Head exam: Present: atraumatic, normocephalic, normal inspection Eye exam: Present: normal appearance, PERRL, EOMI. Absent: scleral icterus, conjunctival injection, periorbital swelling ENT exam: Present: mucous membranes dry Neck exam: Present: normal inspection, full ROM, other (Stridor JVD or bruits). Absent: tenderness, meningismus, lymphadenopathy Respiratory exam: Present: wheezes, decreased breath sounds. Absent: respiratory distress, rales, rhonchi, stridor Cardiovascular Exam: Present: regular rate, normal rhythm, normal heart sounds. Absent: systolic murmur, diastolic murmur, rubs, gallop, clicks GI/Abdominal exam: Present: soft, normal bowel sounds. Absent: distended, tenderness, guarding, rebound, rigid Extremities exam: Present: normal inspection, full ROM, normal capillary refill. Absent: tenderness, pedal edema, joint swelling, calf tenderness Back exam: Present: normal inspection Neurological exam: Present: alert, oriented X3, CN II-XII intact Psychiatric exam: Present: normal affect, normal mood Skin exam: Present: warm, dry, intact, normal color. Absent: rash Course Vital Signs 09/26/19 09/26/19 09/26/19 09:35 10:07 10:40 Temperature 97.8 F Pulse Rate 100 93 91 Respiratory 18 15 16 Rate Blood Pressure 101/51 126/69 O2 Sat by Pulse 88 L 94 L Oximetry 09/26/19 09/26/19 11:07 11:30 Temperature Pulse Rate 97 86 Respiratory 16 20 Rate Blood Pressure 112/70 104/72 O2 Sat by Pulse 96 Oximetry EKG Findings - EKG Results: EKG: interpreted by ERMD (Atrial fibrillation with occasional ventricular paced complexes. Rate 98 QRS 116 QT since QTC 390/497 LVH, nonspecific ST configuration prolonged QT) Medical Decision Making - Medical Decision Making I did discuss [employer] the patient and with Dr. Fleming patient does demonstrate evidence of right lower lobe pneumonitis as well as CHF and leukocytosis. Patient will be admitted for treatment. She also does demonstrate evidence of intravascular by manipulation. - Lab Data Result diagrams: 09/26/19 09:50 01/16/20 09:50 Lab Results 09/26/19 09/26/19 09/26/19 Range/Units 09:50 09:50 09:50 WBC 28.6 H (3.8-10.6) k/uL RBC 3.78 L (3.80-5.40) m/uL Hgb 9.7 L (11.4-16.0) gm/dL Hct 31.3 L (34.0-46.0) % MCV 82.9 (80.0-100.0) fL MCH 25.8 (25.0-35.0) pg MCHC 31.1 (31.0-37.0) g/dL RDW 18.8 H (11.5-15.5) % Plt Count 489 H (150-450) k/uL Neutrophils % 88 % Lymphocytes % 4 % Monocytes % 7 % Eosinophils % 1 % Basophils % 1 % Neutrophils # 25.1 H (1.3-7.7) k/uL Lymphocytes # 1.1 (1.0-4.8) k/uL Monocytes # 1.9 H (0-1.0) k/uL Eosinophils # 0.2 (0-0.7) k/uL Basophils # 0.2 (0-0.2) k/uL Manual Slide Review Performed Hypochromasia Marked Poikilocytosis Slight Poikilocytosis (manual Present Anisocytosis Slight PT (9.0-12.0) sec INR (<1.2) APTT (22.0-30.0) sec Sodium 140 (137-145) mmol/L Potassium 4.2 (3.5-5.1) mmol/L Chloride 105 (98-107) mmol/L Carbon Dioxide 25 (22-30) mmol/L Anion Gap 10 mmol/L BUN 36 H (7-17) mg/dL Creatinine 0.97 (0.52-1.04) mg/dL Est GFR (CKD-EPI)AfAm 62 (>60 ml/min/1.73 sqM) Est GFR (CKD-EPI)NonAf 54 (>60 ml/min/1.73 sqM) Glucose 155 H (74-99) mg/dL Calcium 9.1 (8.4-10.2) mg/dL Magnesium 2.2 (1.6-2.3) mg/dL Total Bilirubin 0.9 (0.2-1.3) mg/dL AST 29 (14-36) U/L ALT 17 (4-34) U/L Alkaline Phosphatase 126 (38-126) U/L Creatine Kinase 29 L (30-135) U/L Troponin I (0.000-0.034) ng/mL NT-Pro-B Natriuret Pep 01508 pg/mL Total Protein 6.5 (6.3-8.2) g/dL Albumin 3.8 (3.5-5.0) g/dL Urine Color Urine Appearance (Clear) Urine pH (5.0-8.0) Ur Specific [place] (1.001-1.035) Urine Protein (Negative) Urine Glucose (UA) (Negative) Urine Ketones (Negative) Urine Blood (Negative) Urine Nitrite (Negative) Urine Bilirubin (Negative) Urine Urobilinogen (<2.0) mg/dL Ur Leukocyte Esterase (Negative) Urine WBC (0-5) /hpf Ur Squamous Epith Cells (0-4) /hpf 09/26/19 09/26/19 09/26/19 Range/Units 09:50 09:50 09:53 WBC (3.8-10.6) k/uL RBC (3.80-5.40) m/uL Hgb (11.4-16.0) gm/dL Hct (34.0-46.0) % MCV (80.0-100.0) fL MCH (25.0-35.0) pg MCHC (31.0-37.0) g/dL RDW (11.5-15.5) % Plt Count (150-450) k/uL Neutrophils % % Lymphocytes % % Monocytes % % Eosinophils % % Basophils % % Neutrophils # (1.3-7.7) k/uL Lymphocytes # (1.0-4.8) k/uL Monocytes # (0-1.0) k/uL Eosinophils # (0-0.7) k/uL Basophils # (0-0.2) k/uL Manual Slide Review Hypochromasia Poikilocytosis Poikilocytosis (manual Anisocytosis PT 11.4 (9.0-12.0) sec INR 1.1 (<1.2) APTT 21.2 L (22.0-30.0) sec Sodium (137-145) mmol/L Potassium (3.5-5.1) mmol/L Chloride (98-107) mmol/L Carbon Dioxide (22-30) mmol/L Anion Gap mmol/L BUN (7-17) mg/dL Creatinine (0.52-1.04) mg/dL Est GFR (CKD-EPI)AfAm (>60 ml/min/1.73 sqM) Est GFR (CKD-EPI)NonAf (>60 ml/min/1.73 sqM) Glucose (74-99) mg/dL Calcium (8.4-10.2) mg/dL Magnesium (1.6-2.3) mg/dL Total Bilirubin (0.2-1.3) mg/dL AST (14-36) U/L ALT (4-34) U/L Alkaline Phosphatase (38-126) U/L Creatine Kinase (30-135) U/L Troponin I 0.035 H* (0.000-0.034) ng/mL NT-Pro-B Natriuret Pep pg/mL Total Protein (6.3-8.2) g/dL Albumin (3.5-5.0) g/dL Urine Color Yellow Urine Appearance Clear (Clear) Urine pH 5.5 (5.0-8.0) Ur Specific [place] 1.020 (1.001-1.035) Urine Protein Trace H (Negative) Urine Glucose (UA) Negative (Negative) Urine Ketones Negative (Negative) Urine Blood Negative (Negative) Urine Nitrite Negative (Negative) Urine Bilirubin Negative (Negative) Urine Urobilinogen <2.0 (<2.0) mg/dL Ur Leukocyte Esterase Small H (Negative) Urine WBC 2 (0-5) /hpf Ur Squamous Epith Cells 1 (0-4) /hpf - Radiology Data Radiology results: report reviewed (I did review the imaging and report is evidence a right lower lobe infiltrate), image reviewed Critical Care Time Critical Care Time: Yes Total Critical Care Time: 33 Critical Care Time: I did reevaluate the patient multiple occasions patient is demonstrated evidence of find depletion with CHF also pneumonia. Patient will be admitted and treated for the same. I did discuss case with Dr. Fleming. This does include initial presentation with history physical labs x-rays also reevaluation the patient he will turn is available discussed with the main physician admission orders and documentation of the above Disposition Clinical Impression: Atrial fibrillation, CHF (congestive heart failure), Pneumonia, Leukocytosis, Dehydration, Failure to thrive in adult Disposition: ADMITTED IP TO THIS HOSP Condition: Fair Referrals: Constantin Farias MD [STAFF PHYSICIAN] - 1-2 days
[2019-09-26 10:36] LABS: Anisocytosis Slight; Basophils # (A) 0.2 k/uL (0-0.2); Basophils % (A) 1 %; Eosinophils # (A) 0.2 k/uL (0-0.7); Eosinophils % (A) 1 %; HCT 31.3 % (34.0-46.0); HGB 9.7 gm/dL (11.4-16.0); Hypochromasia Marked; Lymphocytes # (A) 1.1 k/uL (1.0-4.8); Lymphocytes % (A) 4 %; MCH 25.8 pg (25.0-35.0); MCHC 31.1 g/dL (31.0-37.0); MCV 82.9 fL (80.0-100.0); Mean Platelet Volume 8.1; Monocytes # (A) 1.9 k/uL (0-1.0); Monocytes % (A) 7 %; Neutrophils # (A) 25.1 k/uL (1.3-7.7); Neutrophils % (A) 88 %; Platelet Count 489 k/uL (150-450); Poikilocytosis Slight; RBC 3.78 m/uL (3.80-5.40); RDW 18.8 % (11.5-15.5); WBC 28.6 k/uL (3.8-10.6)
[2019-09-26 10:42] LABS: Appearance,Urine Clear (Clear); Bilirubin,Urine Negative (Negative); Blood,Urine Negative (Negative); Color,Urine Yellow; Glucose,Urine (UA) Negative (Negative); Ketones,Urine Negative (Negative); Leukocyte Esterase,Urine Small (Negative); Nitrite,Urine Negative (Negative); PH, Urine 5.5 (5.0-8.0); Protein,Urine Trace (Negative); Squamous Epithelial Cell,Urine 1 /hpf (0-4); Urobilinogen,Urine <2.0 mg/dL (<2.0); WBC,Urine 2 /hpf (0-5)
--- NOTE | 2019-09-26 10:46 | XR ---
EXAMINATION TYPE: XR chest 2V DATE OF EXAM: 09/26/2019 COMPARISON: 08/20/2019 chest x-ray and thoracic spine x-ray dated 09/04/2019. HISTORY: Difficulty breathing TECHNIQUE: Frontal and lateral views of the chest are obtained. FINDINGS: COPD is seen as there is increased retrosternal airspace on the lateral view and biapical lucency. Biapical pleural parenchymal scarring is also noted. Cardiomediastinal silhouette is enlarge d. Pulmonary vascular congestion is seen centrally with more confluent opacity at the right lung base . There is generalized osseous demineralization and redemonstration of compression deformity at appro ximately T9 as seen on the x-rays of the thoracic spine dated 09/04/2019. IMPRESSION: Patchy right basilar opacity that may represent confluence of pulmonary vasculature given the central pulmonary vascular congestion developing pneumonia.
[2019-09-26 10:47] LABS: Albumin 3.8 g/dL (3.5-5.0); Calcium 9.1 mg/dL (8.4-10.2); Magnesium 2.2 mg/dL (1.6-2.3); Potassium 4.2 mmol/L (3.5-5.1); Total Bilirubin 0.9 mg/dL (0.2-1.3); Total Protein 6.5 g/dL (6.3-8.2)
[2019-09-26 10:54] LABS: Poikilocytosis (M) Present
[2019-09-26 11:02] LABS: INR 1.1 (<1.2); Prothrombin Time 11.4 sec (9.0-12.0)
[2019-09-26 11:09] LABS: Partial Thromboplastin Time 21.2 sec (22.0-30.0)
[2019-09-26] MEDS ORDERED: HYDROmorphone 1 MG/ML 1 ML SYRINGE IVP STA (11:23)
[2019-09-26] MEDS ORDERED: SODIUM CHLORIDE 0.9% 500 ML 500 ML IV STA (11:23)
[2019-09-26] MEDS ORDERED: cefTRIAXone IN SWFI 1,000 MG/10 ML SYRINGE IVP STA (12:23)
[2019-09-26] MEDS ORDERED: AZITHROMYCIN 500 MG in SODIUM CHLORIDE 0.9% 250 ML IVPB STA (12:24)
[2019-09-26] MEDS ORDERED: PNEUMONIA PROTOCOL UTILIZED 1 EACH MISC PO PRN (12:24)
[2019-09-26] MEDS ORDERED: FUROSEMIDE 10 MG/ML 4 ML VIAL IV STA (12:24)
[2019-09-26] MEDS ORDERED: ALBUTEROL NEBULIZED 2.5 MG/3 ML INHALATION PRN (12:27)
--- NOTE | 2019-09-26 12:32 | ED ---
Medical Decision Making - Lab Data Result diagrams: 09/26/19 09:50 09/26/19 09:50 Lab Results 09/26/19 09/26/19 09/26/19 Range/Units 09:50 09:50 09:50 WBC 28.6 H (3.8-10.6) k/uL RBC 3.78 L (3.80-5.40) m/uL Hgb 9.7 L (11.4-16.0) gm/dL Hct 31.3 L (34.0-46.0) % MCV 82.9 (80.0-100.0) fL MCH 25.8 (25.0-35.0) pg MCHC 31.1 (31.0-37.0) g/dL RDW 18.8 H (11.5-15.5) % Plt Count 489 H (150-450) k/uL Neutrophils % 88 % Lymphocytes % 4 % Monocytes % 7 % Eosinophils % 1 % Basophils % 1 % Neutrophils # 25.1 H (1.3-7.7) k/uL Lymphocytes # 1.1 (1.0-4.8) k/uL Monocytes # 1.9 H (0-1.0) k/uL Eosinophils # 0.2 (0-0.7) k/uL Basophils # 0.2 (0-0.2) k/uL Manual Slide Review Performed Hypochromasia Marked Poikilocytosis Slight Poikilocytosis (manual Present Anisocytosis Slight PT (9.0-12.0) sec INR (<1.2) APTT (22.0-30.0) sec Sodium 140 (137-145) mmol/L Potassium 4.2 (3.5-5.1) mmol/L Chloride 105 (98-107) mmol/L Carbon Dioxide 25 (22-30) mmol/L Anion Gap 10 mmol/L BUN 36 H (7-17) mg/dL Creatinine 0.97 (0.52-1.04) mg/dL Est GFR (CKD-EPI)AfAm 62 (>60 ml/min/1.73 sqM) Est GFR (CKD-EPI)NonAf 54 (>60 ml/min/1.73 sqM) Glucose 155 H (74-99) mg/dL Calcium 9.1 (8.4-10.2) mg/dL Magnesium 2.2 (1.6-2.3) mg/dL Total Bilirubin 0.9 (0.2-1.3) mg/dL AST 29 (14-36) U/L ALT 17 (4-34) U/L Alkaline Phosphatase 126 (38-126) U/L Creatine Kinase 29 L (30-135) U/L Troponin I (0.000-0.034) ng/mL NT-Pro-B Natriuret Pep 54421 pg/mL Total Protein 6.5 (6.3-8.2) g/dL Albumin 3.8 (3.5-5.0) g/dL Urine Color Urine Appearance (Clear) Urine pH (5.0-8.0) Ur Specific [place] (1.001-1.035) Urine Protein (Negative) Urine Glucose (UA) (Negative) Urine Ketones (Negative) Urine Blood (Negative) Urine Nitrite (Negative) Urine Bilirubin (Negative) Urine Urobilinogen (<2.0) mg/dL Ur Leukocyte Esterase (Negative) Urine WBC (0-5) /hpf Ur Squamous Epith Cells (0-4) /hpf 09/26/19 09/26/19 09/26/19 Range/Units 09:50 09:50 09:53 WBC (3.8-10.6) k/uL RBC (3.80-5.40) m/uL Hgb (11.4-16.0) gm/dL Hct (34.0-46.0) % MCV (80.0-100.0) fL MCH (25.0-35.0) pg MCHC (31.0-37.0) g/dL RDW (11.5-15.5) % Plt Count (150-450) k/uL Neutrophils % % Lymphocytes % % Monocytes % % Eosinophils % % Basophils % % Neutrophils # (1.3-7.7) k/uL Lymphocytes # (1.0-4.8) k/uL Monocytes # (0-1.0) k/uL Eosinophils # (0-0.7) k/uL Basophils # (0-0.2) k/uL Manual Slide Review Hypochromasia Poikilocytosis Poikilocytosis (manual Anisocytosis PT 11.4 (9.0-12.0) sec INR 1.1 (<1.2) APTT 21.2 L (22.0-30.0) sec Sodium (137-145) mmol/L Potassium (3.5-5.1) mmol/L Chloride (98-107) mmol/L Carbon Dioxide (22-30) mmol/L Anion Gap mmol/L BUN (7-17) mg/dL Creatinine (0.52-1.04) mg/dL Est GFR (CKD-EPI)AfAm (>60 ml/min/1.73 sqM) Est GFR (CKD-EPI)NonAf (>60 ml/min/1.73 sqM) Glucose (74-99) mg/dL Calcium (8.4-10.2) mg/dL Magnesium (1.6-2.3) mg/dL Total Bilirubin (0.2-1.3) mg/dL AST (14-36) U/L ALT (4-34) U/L Alkaline Phosphatase (38-126) U/L Creatine Kinase (30-135) U/L Troponin I 0.035 H* (0.000-0.034) ng/mL NT-Pro-B Natriuret Pep pg/mL Total Protein (6.3-8.2) g/dL Albumin (3.5-5.0) g/dL Urine Color Yellow Urine Appearance Clear (Clear) Urine pH 5.5 (5.0-8.0) Ur Specific [place] 1.020 (1.001-1.035) Urine Protein Trace H (Negative) Urine Glucose (UA) Negative (Negative) Urine Ketones Negative (Negative) Urine Blood Negative (Negative) Urine Nitrite Negative (Negative) Urine Bilirubin Negative (Negative) Urine Urobilinogen <2.0 (<2.0) mg/dL Ur Leukocyte Esterase Small H (Negative) Urine WBC 2 (0-5) /hpf Ur Squamous Epith Cells 1 (0-4) /hpf Disposition Clinical Impression: Atrial fibrillation, CHF (congestive heart failure), Pneumonia, Leukocytosis, Dehydration, Failure to thrive in adult, Acute exacerbation of chronic obstructive airways disease Disposition: ADMITTED IP TO THIS HOSP Condition: Fair Referrals: Constantin Farias MD [STAFF PHYSICIAN] - 1-2 days
[2019-09-26] MEDS: SODIUM CHLORIDE 0.9% 1,000 ML IV SCH (12:44)
[2019-09-26] MEDS ORDERED: IPRATROPIUM-ALBUTEROL 3 ML NEB INHALATION SCH (16:00)
[2019-09-26] MEDS: GLIMEPIRIDE 2 MG TAB PO SCH (17:08)
[2019-09-26] MEDS: IPRATROPIUM-ALBUTEROL 3 ML NEB INHALATION SCH ×3 (17:32→23:47)
[2019-09-26] MEDS: HYDROcodone/APAP 5-325MG 1 EACH TAB PO PRN (18:06)
[2019-09-26 20:19] LABS: Glucose,Whole Blood 266 mg/dL (75-99)
[2019-09-26] MEDS: SYMBICORT 160-4.5 MCG INHALER INHALATION SCH (20:50)
[2019-09-26] MEDS: APIXABAN 5 MG TAB PO SCH (20:56)
[2019-09-26] MEDS: FUROSEMIDE 10 MG/ML 4 ML VIAL IV SCH (20:56)
[2019-09-26] MEDS: VERAPAMIL 80 MG TAB PO SCH (20:56)
[2019-09-26] MEDS: ACETAMINOPHEN TAB 325 MG TAB PO SCH ×2 (20:56→21:38)
[2019-09-27] MEDS: IPRATROPIUM-ALBUTEROL 3 ML NEB INHALATION SCH ×5 (03:48→19:06)
[2019-09-27] MEDS: SODIUM CHLORIDE 0.9% 1,000 ML IV SCH ×2 (04:14→15:29)
[2019-09-27 06:12] LABS: Glucose,Whole Blood 175 mg/dL (75-99)
[2019-09-27] MEDS: GLIMEPIRIDE 2 MG TAB PO SCH ×2 (06:46→17:07)
[2019-09-27] MEDS: PANTOPRAZOLE 40 MG TABLET PO SCH (06:46)
[2019-09-27] MEDS: FUROSEMIDE 10 MG/ML 4 ML VIAL IV SCH (07:47)
[2019-09-27] MEDS: predniSONE 10 MG TAB PO SCH (07:47)
[2019-09-27] MEDS: DOCUSATE 100 MG CAP PO SCH (07:47)
[2019-09-27] MEDS: CHOLECALCIFEROL 1,000 UNIT TAB PO SCH (07:47)
[2019-09-27] MEDS: CYANOCOBALAMIN 500 MCG TAB PO SCH (07:47)
[2019-09-27] MEDS: APIXABAN 5 MG TAB PO SCH ×2 (07:48→21:47)
[2019-09-27] MEDS: NADOLOL 20 MG TAB PO SCH (07:48)
[2019-09-27] MEDS: AMIODARONE 100 MG TAB PO SCH (07:48)
[2019-09-27] MEDS: POTASSIUM CHLORIDE ER 10 MEQ TAB.ER.PRT PO SCH (07:48)
[2019-09-27] MEDS: VERAPAMIL 80 MG TAB PO SCH ×2 (07:48→21:47)
[2019-09-27] MEDS: FERROUS SULFATE 325 MG TAB PO SCH (07:48)
[2019-09-27] MEDS: ACETAMINOPHEN TAB 325 MG TAB PO SCH ×4 (07:49→21:46)
[2019-09-27] MEDS: HYDROcodone/APAP 5-325MG 1 EACH TAB PO PRN ×2 (07:57→14:18)
[2019-09-27] MEDS: SYMBICORT 160-4.5 MCG INHALER INHALATION SCH ×2 (08:57→19:06)
[2019-09-27] MEDS ORDERED: AZITHROMYCIN 500 MG TAB PO SCH (09:00)
[2019-09-27] MEDS ORDERED: FUROSEMIDE 40 MG TAB PO SCH (09:00)
--- NOTE | 2019-09-27 10:25 | XR ---
EXAMINATION TYPE: XR chest 2V DATE OF EXAM: 09/27/2019 COMPARISON: 09/26/2019 INDICATION: Pneumonia TECHNIQUE: Frontal and lateral views of the chest are obtained. FINDINGS: The heart size is mildly prominent. The pulmonary vasculature is normal. Right lower lobe infiltrate is improving with subtle residual remaining. Pacemaker overlies left ches t.. IMPRESSION: 1. Resolving right lower lobe infiltrate
[2019-09-27] MEDS ORDERED: VANCOMYCIN IV PER PHARMACY 1 EACH MISC MISCELLANE PRN (12:18)
[2019-09-27 12:19] LABS: Glucose,Whole Blood 190 mg/dL (75-99)
[2019-09-27] MEDS ORDERED: VANCOMYCIN 1,250 MG in SODIUM CHLORIDE 0.9% 250 ML IVPB ONE (13:00)
[2019-09-27] MEDS: INSULIN ASPART (NovoLOG) 100 UNIT/ML VIAL SQ SCH ×3 (13:14→21:47)
--- NOTE | 2019-09-27 13:18 | P.CNOR ---
History of Present Illness - [facility] Consult date: 09/27/19 Requesting physician: Jeffrey Fleming Consult reason: fracture (Subacute T8 compression fracture deformity) History of present illness: Patient is a very pleasant 84-year-old female who is seen and examined at bedside for further evaluation for her known T8 compression fracture deformity. She sustained a fracture in mid August 2019 when she bent forward to grape picker a cane. She was evaluated in the hospital on 09/05/2019. She had previously been admitted the day before on 09/04/2019. Imaging showed evidence of the T8 compression fracture deformity. She was fitted with an [place] TLSO brace. She continues wear this brace as instructed. At the time of discharge she was discharged to a rehabilitation facility. She was recently discharged home. She states she has ongoing thoracic back pain which is exacerbated with movements of her thoracic spine. Her pain is controlled at rest. She denies any lower extremity weakness and radiculopathy bilaterally. She presents to the emergency department for further evaluation for progressive weakness. She is known to have COPD. She was diagnosed with pneumonia. She is being seen and examined by medicine. She has a significant medical history which includes atrial fibrillation, COPD, heart failure, diabetes mellitus, hyperlipidemia, hypertension, and history of myocardial infarction. She is also known to have significant degenerative changes in her lumbar spine. Past Medical History Past Medical History: Atrial Fibrillation, Asthma, Chest Pain / Angina, Heart Failure, COPD, Diabetes Mellitus, GERD/Reflux, Hyperlipidemia, Hypertension, Myocardial Infarction (MA), Osteoarthritis (OA), Pneumonia Additional Past Medical History / Comment(s): Pt admitted to [facility] on 09/04/19 fall with compression fracture T8-chronic back pain since, acute kidney injury and acute pancreatitis. Other hx; Afib RVR, NIDDM type II, neuropathy bilat eral feet, arthritis multiple joints, osteoporosis, chronic anemia, falls, 2013 shingelles Last Myocardial Infarction Date:: 07/16/11 History of Any Multi-Drug Resistant Organisms: None Reported Past Surgical History: Appendectomy, Breast Surgery, Heart Catheterization, Pacemaker, Tubal Ligation Additional Past Surgical History / Comment(s): 02/2011 cardiac cath-normal, benign L breast lumpectomy, bronchoscopy, EGD/colonoscopy, bilateral cataract removals, 2010 VATS L lung d/t fibrotic lung changes. Past Anesthesia/Blood Transfusion Reactions: No Reported Reaction Additional Past Anesthesia/Blood Transfusion Reaction / Comm: Pt has received bl ood in past without reaction Type of Cardiac Device: Permanent Pacemaker Device Placement Date:: NOVEMBER 28 2017 Smoking Status: Never smoker - Past Family History Sister(s) Family Medical History: Cancer Additional Family Medical History / Comment(s): breast CA Mother History Unknown: Yes Family Medical History: No Reported History Additional Family Medical History / Comment(s): from car accident no other hx known Father History Unknown: Yes Family Medical History: No Reported History Additional Family Medical History / Comment(s): committed suicide Daughter(s) Family Medical History: Cancer Additional Family Medical History / Comment(s): breast CA Medications and Allergies Home Medications Medication Instructions Recorded Confirmed Type Apixaban [Eliquis] 5 mg PO BID 11/24/14 09/26/19 History Potassium Chloride [Klor-Con 10] 10 meq PO DAILY 11/26/14 09/26/19 History Glimepiride [Amaryl] 2 mg PO BID 06/07/15 09/26/19 History Furosemide [Lasix] 40 mg PO DAILY 05/20/16 09/26/19 History Nadolol [Corgard] 40 mg PO DAILY 05/20/16 09/26/19 History Amiodarone [Cordarone] 100 mg PO DAILY 11/27/17 09/26/19 History Levalbuterol Nebulized [Xopenex 1.25 mg INHALATION RT-BID PRN 06/10/18 09/26/19 History Nebulized] Omeprazole 40 mg PO DAILY 06/10/18 09/26/19 History Verapamil [Isoptin] 80 mg PO BID 06/10/18 09/26/19 History Fluticasone/Salmeterol [Advair 1 puff INHALATION RT-BID 06/03/19 09/26/19 History 500-50 Diskus] Acetaminophen [Tylenol 8 Hour] 650 mg PO BID 09/26/19 09/26/19 History Cholecalciferol [Vitamin D3 (25 5,000 unit PO DAILY 09/26/19 09/26/19 History Mcg = 1000 Iu)] Cyanocobalamin (Vitamin B-12) 1,000 mcg PO DAILY 09/26/19 09/26/19 History [Vitamin B-12] Docusate [Colace] 100 mg PO DAILY 09/26/19 09/26/19 History Ferrous Gluconate 324 mg PO DAILY 09/26/19 09/26/19 History HYDROcodone/APAP 5-325MG [Satin 1 tab PO Q6H PRN 09/26/19 09/26/19 History 5-325] predniSONE 10 mg PO DAILY 09/26/19 09/26/19 History Allergies Allergy/AdvReac Type Severity Reaction Status Date / Time diltiazem Allergy Itching Verified 09/26/19 10:45 morphine AdvReac Confusion Verified 09/26/19 10:45 Physical Examination Physical exam: Patient is awake, alert, and oriented 3 Vital signs stable Adequate chest excursion with deep inspiration and expiration; O2 nasal cannula intact Examination of thoracic and lumbar spine reveals skin is intact with no lacerations, abrasions, or bruises; no erythema, purulence or signs of infection Pain with palpation along the midline of the mid to lower thoracic spine No pain with palpation over the lumbar spine Dorsiflexion, plantarflexion, and extensor hallucis longus positive sustained bilaterally Lower extremity strength 5/5 bilaterally Patient is able to lift legs independently off the bed No lower extremity hyperreflexia bilaterally Negative Lasegue's test bilaterally No signs or symptoms of DVT; no calf pain No pain with internal and external rotation of the hips bilaterally Neurovascularly intact Results Pertinent studies: X-rays of the thoracic and lumbar spine taken on 09/04/2019: T8 compression fracture deformity with approximately 30% height loss; L2-3 and L3-4 degenerative disc disease and retrolisthesis; L4-5 slight retrolisthesis; L5-S1 grade II-III spondylolisthesis with pars interarticularis defect and degenerative disc disease - Labs Labs: Abnormal Lab Results - Last 24 Hours (Table) 09/26/19 09/26/19 09/27/19 Range/Units 09:50 20:18 06:11 POC Glucose (mg/dL) 266 H 175 H (75-99) mg/dL Plasma Lactic Acid Ricardo 2.8 H* (0.7-2.0) mmol/L 09/27/19 Range/Units 12:18 POC Glucose (mg/dL) 190 H (75-99) mg/dL Plasma Lactic Acid Ricardo (0.7-2.0) mmol/L Microbiology - Last 24 Hours (Table) 01/16/20 09:50 Blood Culture Gram Stain - Preliminary Blood Blood Culture - Preliminary Group D Enterococcus 09/26/19 09:50 Blood Culture - Final Blood H & H 09/26/19 Range/Units 09:50 Hgb 9.7 L (11.4-16.0) gm/dL Hct 31.3 L (34.0-46.0) % Coagulation 09/26/19 Range/Units 09:50 INR 1.1 (<1.2) Result Diagrams: 09/26/19 09:50 09/26/19 09:50 Assessment and Plan Assessment: Assessment: Subacute T8 compression fracture deformity Thoracic back pain L5-S1 grade II-III spondylolisthesis L5 spondylolysis Lumbar degenerative disc disease Multilevel lumbar retrolisthesis Multilevel lumbar degenerative disc disease History of atrial fibrillation COPD Heart failure Diabetes mellitus Hyperlipidemia Hypertension History of myocardial infarction (1) Thoracic back pain Current Visit: Yes Status: Acute Code(s): M54.6 - PAIN IN THORACIC SPINE SNOMED Code(s): 826183764 (2) Spondylolisthesis, lumbar region Current Visit: Yes Status: Acute Code(s): M43.16 - SPONDYLOLISTHESIS, LUMBAR REGION SNOMED Code(s): 822644606636327 (3) Spondylolisthesis, lumbosacral region Current Visit: Yes Status: Acute Code(s): M43.17 - SPONDYLOLISTHESIS, LUMBOSACRAL REGION SNOMED Code(s): 395711997 (4) Lumbar degenerative disc disease Current Visit: Yes Status: Acute Code(s): M51.36 - OTHER INTERVERTEBRAL DISC DEGENERATION, LUMBAR REGION SNOMED Code(s): 61500702 (5) DJD (degenerative joint disease), lumbosacral Current Visit: Yes Status: Acute Code(s): M47.817 - SPONDYLS W/O MYELOPATHY OR RADICULOPATHY, LUMBOSACR REGION SNOMED Code(s): 689066217 (6) Spondylolysis of lumbar region Current Visit: Yes Status: Acute Code(s): M43.06 - SPONDYLOLYSIS, LUMBAR REGION SNOMED Code(s): 259945103 (7) History of atrial fibrillation Current Visit: Yes Status: Acute Code(s): Z86.79 - PERSONAL HISTORY OF OTHER DISEASES OF THE CIRCULATORY SYSTEM SNOMED Code(s): 664094772 (8) COPD (chronic obstructive pulmonary disease) Current Visit: Yes Status: Acute Code(s): J44.9 - CHRONIC OBSTRUCTIVE PULMONARY DISEASE, UNSPECIFIED SNOMED Code(s): 16903677 (9) Heart failure Current Visit: Yes Status: Acute Code(s): I50.9 - HEART FAILURE, UNSPECIFIED SNOMED Code(s): 83431010 (10) Hyperlipidemia Current Visit: Yes Status: Acute Code(s): E78.5 - HYPERLIPIDEMIA, UNSPECIFIED SNOMED Code(s): 65341176 (11) History of myocardial infarction Current Visit: Yes Status: Acute Code(s): I25.2 - OLD MYOCARDIAL INFARCTION SNOMED Code(s): 335680292 (12) Compression fracture of T8 vertebra Current Visit: No Status: Acute Priority: Medium Code(s): S22.060A - WEDGE COMPRESSION FRACTURE OF T7-T8 VERTEBRA, INIT SNOMED Code(s): 393157513 (13) Diabetes Current Visit: No Status: Acute Code(s): E11.9 - TYPE 2 DIABETES MELLITUS WITHOUT COMPLICATIONS SNOMED Code(s): 41754025 (14) Hypertension Current Visit: No Status: Acute Code(s): I10 - ESSENTIAL (PRIMARY) HYPERTENSION SNOMED Code(s): 10596706 Plan: Plan: 1. After reviewing of imaging, physical examination the patient, and further discussion with the patient, we will currently plan to continue with conservative treatment at this time. She was previously prescribed an [place] TLSO brace. Patient should continue to wear this brace while sitting upright at greater than 45, during increase activities, during ambulation. Brace does not have to or while lying in bed or while bathing. Patient is clear for discharge from an orthopedic spine standpoint. Following discharge, patient may follow-up with Yasmany Tejada PA-C or Dr. Leonel Duran at [facility] next week for further evaluation. We will plan to obtain new x-rays of the thoracic spine at that time. 2. Patient will continue be seen and examined by medicine for her other medical diagnoses. Time with Patient: Greater than 30 (Including obtaining history, physical examination, reviewing of imaging, and dictation.)
[2019-09-27 16:58] LABS: Glucose,Whole Blood 147 mg/dL (75-99)
[2019-09-27 20:24] LABS: Glucose,Whole Blood 179 mg/dL (75-99)
--- NOTE | 2019-09-27 21:44 | P.HPIM ---
History of Present Illness H&P Date: 09/27/19 Chief Complaint: Weak and tired History of presenting complaint: This is a pleasant 84-year-old patient of Dr. Royal Beaver. Rather extensive medical history. 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 Patient was recently in the hospital and discharged on September 09 with a diagnosis of acute pancreatitis. Patient does wear a brace because of her T8 fracture. Patient got to the F and was doing well when she was discharged home. Patient is being home for last 3-4 days. In fact which resolved she was able to get Russell Roque for herself and get about the house. No fever no chills. Yesterday patient's felt really weak unable to sleep. Set up at the couch most of the time. Unable to answer global as she was feeling really weak. Has not stopped the previous night. Patient also had a fever. He she was brought under the ER and admitted for the same. Blood cultures are coming back positive for group D enterococcus. Earlier today. Started on vancomycin. Review of systems: GEN.: Tired, fever EYES: None HEENT: None NECK: None RESPIRATORY: Some shortness of breath CARDIOVASCULAR: None GASTROINTESTINAL: None GENITOURINARY: None MUSCULOSKELETAL: Joint pains including the back LYMPHATICS: None HEMATOLOGICAL: None PSYCHIATRY: None NEUROLOGICAL: None Social history: No history of smoking. Discharged from the to home 3-4 days ago. Does use a walker to get about. Has become home care. Physical examination: VITAL SIGNS: 97.8, 100, 18, 101/51, 94% on nasal cannula, reported to have a fever at home GENERAL: BMI 26.5, sitting up awake in a chair with a brace. EYES: Pupils equal. Conjunctiva normal. HEENT: External appearance of nose and ears normal, oral cavity grossly normal. NECK: JVD not raised; masses not palpable. HEART: First and second heart sounds are normal; no edema. LUNGS: Respiratory rate normal; clear to auscultation. ABDOMEN: Soft, nontender, liver spleen not palpable, no masses palpable. PSYCH: Alert and oriented x3; mood and affect normal. NEUROLOGICAL: Cranial nerves grossly intact; no facial asymmetry, power and sensation grossly intact. LYMPHATICS: No lymph nodes palpable in the axilla and neck MUSCULOSKELETAL: Evidence of OA especially in the hands CHEST wall: Wearing a brace INVESTIGATIONS, reviewed in the clinical context: White count 3.6-year-old woman 9.7 platelets 49 potassium 4.2.36 creatinine 0.97 Lactic acid 2.8 troponin I 0.035 ProBNP 16773 Influenza type A and type B both negative Chest x-ray film personally reviewed by me-questionable infiltrate Blood culture positive for groupD enterococcus EKG tracing personally reviewed by me-atrial fibrillation with heart rate less than 100 Assessment: -Now admitted feeling weak tired with a fever and blood cultures positive for enterococcus group D, --Persistent atrial fibrillation rate controlled -Chronic congestive heart failure, EF not known -Diabetes mellitus type II -GERD -Essential hypertension -Hyperlipidemia -Primary osteoarthritis -Chronic T8 compression fracture for which patient uses a brace -Diabetic peripheral neuropathy -Primary osteoarthritis Plan: Home medications resumed. Patient's been put on IV vancomycin. ID is being consulted. Lovenox for DVT prophylaxis. Accu-Cheks will be followed. Care was discussed with the patient and his daughter by the bedside. Social work is involved. Repeat blood cultures be done. Past Medical History Past Medical History: Atrial Fibrillation, Asthma, Chest Pain / Angina, Heart Failure, COPD, Diabetes Mellitus, GERD/Reflux, Hyperlipidemia, Hypertension, Myocardial Infarction (CA), Osteoarthritis (OA), Pneumonia Additional Past Medical History / Comment(s): Pt admitted to [facility] on 09/04/19 fall with compression fracture T8-chronic back pain since, acute kidney injury and acute pancreatitis. Other hx; Afib RVR, NIDDM type II, neuropathy bilateral feet, arthritis multiple joints, osteoporosis, chronic anemia, falls, 2012 shingelles Last Myocardial Infarction Date:: 07/16/11 History of Any Multi-Drug Resistant Organisms: None Reported Past Surgical History: Appendectomy, Breast Surgery, Heart Catheterization, Pacemaker, Tubal Ligation Additional Past Surgical History / Comment(s): 02/2011 cardiac cath-normal, benign L breast lumpectomy, bronchoscopy, EGD/colonoscopy, bilateral cataract removals, 2010 VATS L lung d/t fibrotic lung changes. Past Anesthesia/Blood Transfusion Reactions: No Reported Reaction Additional Past Anesthesia/Blood Transfusion Reaction / Comment(s): Pt has received blood in past without reaction Type of Cardiac Device: Permanent Pacemaker Device Placement Date:: NOVEMBER 28 2017 Smoking Status: Never smoker - Past Family History Sister(s) Family Medical History: Cancer Additional Family Medical History / Comment(s): breast CA Mother History Unknown: Yes Family Medical History: No Reported History Additional Family Medical History / Comment(s): from car accident no other hx known Father History Unknown: Yes Family Medical History: No Reported History Additional Family Medical History / Comment(s): committed suicide Daughter(s) Family Medical History: Cancer Additional Family Medical History / Comment(s): breast CA Medications and Allergies Home Medications Medication Instructions Recorded Confirmed Type Apixaban [Eliquis] 5 mg PO BID 11/24/14 09/26/19 History Potassium Chloride [Klor-Con 10] 10 meq PO DAILY 11/26/14 09/26/19 History Glimepiride [Amaryl] 2 mg PO BID 06/07/15 09/26/19 History Furosemide [Lasix] 40 mg PO DAILY 05/20/16 09/26/19 History Nadolol [Corgard] 40 mg PO DAILY 05/20/16 09/26/19 History Amiodarone [Cordarone] 100 mg PO DAILY 11/27/17 09/26/19 History Levalbuterol Nebulized [Xopenex 1.25 mg INHALATION RT-BID PRN 06/10/18 09/26/19 History Nebulized] Omeprazole 40 mg PO DAILY 06/10/18 09/26/19 History Verapamil [Isoptin] 80 mg PO BID 06/10/18 09/26/19 History Fluticasone/Salmeterol [Advair 1 puff INHALATION RT-BID 06/03/19 09/26/19 History 500-50 Diskus] Acetaminophen [Tylenol 8 Hour] 650 mg PO BID 09/26/19 09/26/19 History Cholecalciferol [Vitamin D3 (25 5,000 unit PO DAILY 09/26/19 09/26/19 History Mcg = 1000 Iu)] Cyanocobalamin (Vitamin B-12) 1,000 mcg PO DAILY 09/26/19 09/26/19 History [Vitamin B-12] Docusate [Colace] 100 mg PO DAILY 09/26/19 09/26/19 History Ferrous Gluconate 324 mg PO DAILY 09/26/19 09/26/19 History HYDROcodone/APAP 5-325MG [[place] 1 tab PO Q6H PRN 09/26/19 09/26/19 History 5-325] predniSONE 10 mg PO DAILY 09/26/19 09/26/19 History Allergies Allergy/AdvReac Type Severity Reaction Status Date / Time diltiazem Allergy Itching Verified 09/26/19 10:45 morphine AdvReac Confusion Verified 09/26/19 10:45 Physical Exam Vitals: Vital Signs Temp Pulse Pulse Resp BP BP Pulse Ox 09/27/19 09:10 72 09/27/19 08:59 70 96 09/27/19 08:00 97.7 F 101 H 18 124/72 95 09/27/19 04:00 98.2 F 71 18 125/66 97 09/27/19 03:57 76 09/27/19 03:48 72 09/26/19 23:57 77 09/26/19 23:48 77 09/26/19 23:14 88 16 09/26/19 23:07 98.3 F 16 133/81 96 09/26/19 20:00 98.1 F 88 18 124/75 94 L 09/26/19 17:43 88 09/26/19 17:33 92 09/26/19 15:11 88 16 09/26/19 14:50 98.3 F 88 16 112/70 96 09/26/19 12:31 87 16 126/80 95 09/26/19 11:30 86 20 104/72 09/26/19 11:07 97 16 112/70 96 09/26/19 10:40 91 16 Intake and Output 09/26/19 09/27/19 09/27/19 22:59 06:59 14:59 Intake Total 140 360 Output Total 425 Balance 140 -65 Intake: IV 20 Invasive Line 1 20 Oral 120 360 Output: Urine 425 Other: # Voids 2 1 1 # Bowel Movements 1 Weight 65.8 kg Results CBC & Chem 7: 09/26/19 09:50 09/27/19 12:43 Labs: Abnormal Lab Results - Last 24 Hours (Table) 09/26/19 09/26/19 09/26/19 Range/Units 09:50 09:50 09:50 WBC 28.6 H (3.8-10.6) k/uL RBC 3.78 L (3.80-5.40) m/uL Hgb 9.7 L (11.4-16.0) gm/dL Hct 31.3 L (34.0-46.0) % RDW 18.8 H (11.5-15.5) % Plt Count 489 H (150-450) k/uL Neutrophils # 25.1 H (1.3-7.7) k/uL Monocytes # 1.9 H (0-1.0) k/uL APTT 21.2 L (22.0-30.0) sec BUN 36 H (7-17) mg/dL Glucose 155 H (74-99) mg/dL POC Glucose (mg/dL) (75-99) mg/dL Plasma Lactic Acid Ricardo (0.7-2.0) mmol/L Creatine Kinase 29 L (30-135) U/L Troponin I (0.000-0.034) ng/mL Urine Protein (Negative) Ur Leukocyte Esterase (Negative) 09/26/19 09/26/19 09/26/19 Range/Units 09:50 09:50 09:53 WBC (3.8-10.6) k/uL RBC (3.80-5.40) m/uL Hgb (11.4-16.0) gm/dL Hct (34.0-46.0) % RDW (11.5-15.5) % Plt Count (150-450) k/uL Neutrophils # (1.3-7.7) k/uL Monocytes # (0-1.0) k/uL APTT (22.0-30.0) sec BUN (7-17) mg/dL Glucose (74-99) mg/dL POC Glucose (mg/dL) (75-99) mg/dL Plasma Lactic Acid Ricardo 2.8 H* (0.7-2.0) mmol/L Creatine Kinase (30-135) U/L Troponin I 0.035 H* (0.000-0.034) ng/mL Urine Protein Trace H (Negative) Ur Leukocyte Esterase Small H (Negative) 09/26/19 09/27/19 Range/Units 20:18 06:11 WBC (3.8-10.6) k/uL RBC (3.80-5.40) m/uL Hgb (11.4-16.0) gm/dL Hct (34.0-46.0) % RDW (11.5-15.5) % Plt Count (150-450) k/uL Neutrophils # (1.3-7.7) k/uL Monocytes # (0-1.0) k/uL APTT (22.0-30.0) sec BUN (7-17) mg/dL Glucose (74-99) mg/dL POC Glucose (mg/dL) 266 H 175 H (75-99) mg/dL Plasma Lactic Acid Ricardo (0.7-2.0) mmol/L Creatine Kinase (30-135) U/L Troponin I (0.000-0.034) ng/mL Urine Protein (Negative) Ur Leukocyte Esterase (Negative) Microbiology - Last 24 Hours (Table) 09/26/19 09:50 Blood Culture Gram Stain - Preliminary Blood 09/26/19 09:50 Blood Culture - Final Blood Thrombosis Risk Factor Assmnt - Choose All That Apply Any of the Below Risk Factors Present?: Yes Each Factor Represents 1 point: Abnormal pulmonary function (COPD), Heart failure (<1month) Other Risk Factors: Yes Each Risk Factor Represents 3 Points: Age 75 years or older Other congenital or acquired thrombophilia - If yes, enter type in comment: No Thrombosis Risk Factor Assessment Total Risk Factor Score: 5 Thrombosis Risk Factor Assessment Level: High Risk
[2019-09-28] MEDS: HYDROcodone/APAP 5-325MG 1 EACH TAB PO PRN ×3 (00:26→17:29)
[2019-09-28] MEDS ORDERED: FLUTICASONE 50MCG/SPRAY NASAL 16GM EA NOSTRIL PRN (00:32)
[2019-09-28] MEDS: SODIUM CHLORIDE 0.9% 1,000 ML IV SCH ×2 (04:23→15:16)
[2019-09-28] MEDS: FUROSEMIDE 10 MG/ML 4 ML VIAL IV SCH (04:23)
[2019-09-28] MEDS ORDERED: VANCOMYCIN 1,250 MG in SODIUM CHLORIDE 0.9% 250 ML IVPB SCH (06:00)
[2019-09-28] MEDS: PANTOPRAZOLE 40 MG TABLET PO SCH (06:06)
[2019-09-28] MEDS: GLIMEPIRIDE 2 MG TAB PO SCH ×2 (06:06→17:29)
[2019-09-28 06:19] LABS: Glucose,Whole Blood 113 mg/dL (75-99)
[2019-09-28 06:37] LABS: Calcium 8.7 mg/dL (8.4-10.2); Potassium 4.1 mmol/L (3.5-5.1)
[2019-09-28 06:51] LABS: Anisocytosis Slight; HCT 30.5 % (34.0-46.0); HGB 9.5 gm/dL (11.4-16.0); Hypochromasia Marked; MCHC 31.1 g/dL (31.0-37.0); MCV 83.4 fL (80.0-100.0); Mean Platelet Volume 8.6; Platelet Count 370 k/uL (150-450); Poikilocytosis Slight; RBC 3.66 m/uL (3.80-5.40); RDW 19.8 % (11.5-15.5); WBC 28.4 k/uL (3.8-10.6)
[2019-09-28] MEDS: INSULIN ASPART (NovoLOG) 100 UNIT/ML VIAL SQ SCH ×4 (06:57→22:15)
[2019-09-28] MEDS: SYMBICORT 160-4.5 MCG INHALER INHALATION SCH ×2 (08:51→20:09)
[2019-09-28] MEDS: IPRATROPIUM-ALBUTEROL 3 ML NEB INHALATION SCH ×4 (08:51→20:09)
[2019-09-28] MEDS: ACETAMINOPHEN TAB 325 MG TAB PO SCH ×4 (09:49→22:16)
[2019-09-28] MEDS: NADOLOL 20 MG TAB PO SCH (09:52)
[2019-09-28] MEDS: DOCUSATE 100 MG CAP PO SCH (09:52)
[2019-09-28] MEDS: predniSONE 10 MG TAB PO SCH (09:52)
[2019-09-28] MEDS: APIXABAN 5 MG TAB PO SCH ×2 (09:52→22:15)
[2019-09-28] MEDS: VERAPAMIL 80 MG TAB PO SCH ×2 (09:52→22:15)
[2019-09-28] MEDS: POTASSIUM CHLORIDE ER 10 MEQ TAB.ER.PRT PO SCH (09:52)
[2019-09-28] MEDS: FERROUS SULFATE 325 MG TAB PO SCH (09:52)
[2019-09-28] MEDS: CYANOCOBALAMIN 500 MCG TAB PO SCH (09:52)
[2019-09-28] MEDS: AMIODARONE 100 MG TAB PO SCH (10:41)
[2019-09-28 11:43] LABS: Glucose,Whole Blood 168 mg/dL (75-99)
[2019-09-28] MEDS: CHOLECALCIFEROL 1,000 UNIT TAB PO SCH (12:06)
[2019-09-28 14:32] VITALS: BMI 26.8
[2019-09-28] MEDS: AMPICILLIN-SULBACTAM 3 GM in SODIUM CHLORIDE 0.9% 100 ML IVPB SCH ×3 (15:12→23:37)
[2019-09-28 16:54] LABS: Glucose,Whole Blood 217 mg/dL (75-99)
[2019-09-28] MEDS: IOPAMIDOL CONTRAST (ORAL USE) VIAL PO PRN ×2 (18:48→18:53)
[2019-09-28 20:25] LABS: Glucose,Whole Blood 218 mg/dL (75-99)
--- NOTE | 2019-09-28 21:56 | CT ---
EXAMINATION TYPE: CT abdomen pelvis wo con DATE OF EXAM: 09/28/2019 COMPARISON: CT 06/03/2019 HISTORY: Enterococus bacteremia CT DLP: 589.8 mGycm Automated exposure control for dose reduction was used. TECHNIQUE: Helical acquisition of images from the lung bases through the pelvis. Patient received or al contrast only. FINDINGS: Lack of intravenous contrast could compromise sensitivity. The heart is enlarged. LUNG BASES: There is been interval development of a right pleural effusion, there is basilar atelecta tic change. The heart shows probable lead within the right ventricle, no pericardial effusion AORTA: No significant abnormality is appreciated. LIVER/GB: There is some dependent hyperdensity within the gallbladder which may represent stones. Anastasia er shows no mass. PANCREAS: No significant abnormality is seen. SPLEEN: Scattered calcifications are again noted. ADRENALS: No significant abnormality is seen. KIDNEYS: No significant abnormality is seen. REPRODUCTIVE ORGANS: No significant abnormality is seen. URINARY BLADDER: No significant abnormality is seen. BOWEL: Diverticular changes associated with the colon. The appendix is not seen. FREE AIR: No Free Air is visible. ASCITES: There is free fluid in the pelvis. PELVIC ADENOPATHY: None visualized. RETROPERITONEAL ADENOPATHY: No Retroperitoneal Adenopathy visible. OSSEOUS STRUCTURES: Bilateral spondylolysis at L5, there is anterolisthesis grade 1, degenerative di sc changes are present. IMPRESSION: NONCONTRAST EXAM. RIGHT PLEURAL EFFUSION. POSSIBLE CHOLELITHIASIS. DIVERTICULOSIS. THERE IS SOME FREE FLUID IN THE PELV IS. ADDITIONAL FINDINGS ABOVE.
--- NOTE | 2019-09-28 22:31 | P.PN ---
Progress Note - Text Progress Note Date: 09/28/19 Chief Complaint: Weak and tired Interval history: This is a pleasant 84-year-old patient of Dr. Royal Beaver. Rather extensive medical history. 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 Patient was recently in the hospital and discharged on September 09 with a diagnosis of acute pancreatitis. Patient does wear a brace because of her T8 fracture. Patient got to the [facility] and was doing well when she was discharged home. Patient is being home for last 3-4 days. In fact which resolved she was able to get AMVONET for herself and get about the house. No fever no chills. Yesterday patient's felt really weak unable to sleep. Set up at the couch most of the time. Unable to answer the door as she was feeling really weak. Had not slept the previous night. Patient also had a fever. He she was brought to ER . Admitted with sepsis with positive blood cultures Enterococcus faecalis Today-patient feels tired rundown. Did eat some diet. One of patient's daughter the bedside. Review of systems: Was done for constitutional, cardiovascular, GI, pulmonary. relevant finding as above Active Medications Acetaminophen (Tylenol Tab) 325 mg PO QID COUNT INCLUDES THE [facility] Last Admin: 09/28/19 22:16 Dose: 325 mg Documented by: Hydrocodone Bitart/Acetaminophen ([place] 5-325) 1 each PO Q6H PRN PRN Reason: Pain Last Admin: 09/28/19 17:29 Dose: 1 each Documented by: Albuterol Sulfate (Ventolin Nebulized) 2.5 mg INHALATION RT-BID PRN PRN Reason: Shortness Of Breath Albuterol/Ipratropium (Duoneb 0.5 Mg-3 Mg/3 Ml Soln) 3 ml INHALATION RT-QID COUNT INCLUDES THE [facility] Last Admin: 09/28/19 20:09 Dose: Not Given Documented by: Amiodarone HCl (Cordarone) 100 mg PO DAILY COUNT INCLUDES THE [facility] Last Admin: 09/28/19 10:41 Dose: Not Given Documented by: Apixaban (Eliquis) 5 mg PO BID COUNT INCLUDES THE [facility] Last Admin: 09/28/19 22:15 Dose: 5 mg Documented by: Budesonide/Formoterol Fumarate (Symbicort 160-4.5 Mcg Inhaler) 2 puff INHALATION RT-BID COUNT INCLUDES THE [facility] Last Admin: 09/28/19 20:09 Dose: Not Given Documented by: Cholecalciferol (Vitamin D3 (25 Mcg = 1000 Iu)) 5,000 unit PO DAILY COUNT INCLUDES THE [facility] Last Admin: 09/28/19 12:06 Dose: 5,000 unit Documented by: Cyanocobalamin (Vitamin B-12) 1,000 mcg PO DAILY COUNT INCLUDES THE [facility] Last Admin: 09/28/19 09:52 Dose: 1,000 mcg Documented by: Docusate Sodium (Colace) 100 mg PO DAILY COUNT INCLUDES THE [facility] Last Admin: 09/28/19 09:52 Dose: 100 mg Documented by: Ferrous Sulfate (Feosol) 325 mg PO DAILY COUNT INCLUDES THE [facility] Last Admin: 09/28/19 09:52 Dose: 325 mg Documented by: Fluticasone Propionate (Flonase Nasal [place]) 2 spray EA NOSTRIL DAILY PRN PRN Reason: Allergy Symptoms Glimepiride (Amaryl) 2 mg PO AC-BID COUNT INCLUDES THE [facility] Last Admin: 09/28/19 17:29 Dose: 2 mg Documented by: Sodium Chloride (Saline 0.9%) 1,000 mls @ 80 mls/hr IV .[id number] COUNT INCLUDES THE [facility] Last Admin: 09/28/19 15:16 Dose: 80 mls/hr Documented by: Ampicillin Sodium/Sulbactam (Sodium 3 gm/ Sodium Chloride) 100 mls @ 200 mls/hr IVPB Q6HR COUNT INCLUDES THE [facility] Last Admin: 09/28/19 17:30 Dose: 200 mls/hr Documented by: Insulin Aspart (Novolog) 0 unit SQ ACHS COUNT INCLUDES THE [facility]; Protocol Last Admin: 09/28/19 22:15 Dose: 3 unit Documented by: Miscellaneous Information (Pneumonia Protocol Utilized) 1 each PO ONCE PRN PRN Reason: Per Protocol Nadolol (Corgard) 40 mg PO DAILY COUNT INCLUDES THE [facility] Last Admin: 09/28/19 09:52 Dose: 40 mg Documented by: Pantoprazole Sodium (Protonix) 40 mg PO AC-BRKFST COUNT INCLUDES THE [facility] Last Admin: 09/28/19 06:06 Dose: 40 mg Documented by: Potassium Chloride (K-Dur 10) 10 meq PO DAILY COUNT INCLUDES THE [facility] Last Admin: 09/28/19 09:52 Dose: 10 meq Documented by: Prednisone () 10 mg PO DAILY COUNT INCLUDES THE [facility] Last Admin: 09/28/19 09:52 Dose: 10 mg Documented by: Verapamil HCl (Isoptin) 80 mg PO BID COUNT INCLUDES THE [facility] Last Admin: 09/28/19 22:15 Dose: 80 mg Documented by: Physical examination: VITAL SIGNS: 97.8, 70, 18, 130/75, 94% room air GENERAL: Sitting up in a chair, tired EYES: Pupils equal. Conjunctiva normal. HEENT: External appearance of nose and ears normal, oral cavity grossly normal. NECK: JVD not raised; masses not palpable. HEART: First and second heart sounds are normal; no edema. LUNGS: Respiratory rate normal; clear to auscultation. ABDOMEN: Soft, nontender, liver spleen not palpable, no masses palpable. PSYCH: Alert and oriented x3; mood and affect normal. MUSCULOSKELETAL: Evidence of OA especially in the hands CHEST wall: Wearing a brace INVESTIGATIONS, reviewed in the clinical context: White count 28.4 hemoglobin 9.5 potassium 4.1 creatinine 0.85 Computed tomography scan abdomen-right pleural effusion, possible gallstones, diverticulosis. Previous testing White count 28.6-hemoglobin 9.7 platelets 49 potassium 4.2.36 creatinine 0.97 Lactic acid 2.8 troponin I 0.035 ProBNP 61346 Influenza type A and type B both negative Chest x-ray film personally reviewed by me-questionable infiltrate Blood culture positive for groupD enterococcus EKG tracing personally reviewed by me-atrial fibrillation with heart rate less than 100 Assessment: -Enterococcus faecalis sepsis with positive blood cultures. Source unknown. Slow to respond. White count greatly elevated. Patient does feel weak and tired. Causing sepsis, POA --Persistent atrial fibrillation rate controlled -Chronic congestive heart failure, EF not known -Diabetes mellitus type II -GERD -Essential hypertension -Hyperlipidemia -Primary osteoarthritis -Chronic T8 compression fracture for which patient uses a brace -Diabetic peripheral neuropathy -Primary osteoarthritis Plan: Antibiotics this to IV Unasyn. Vancomycin discontinued. Other medications to continue. CT abdomen scan results noted. Patient does feel weak tired. White count still up
--- NOTE | 2019-09-29 00:06 | P.CONS ---
History of Present Illness - Reason for Consult Consult date: 09/28/19 bacteremia Requesting physician: Jeffrey Fleming - Chief Complaint weakness x few days and midback pain x weeks - History of Present Illness Patient is 84-year-old female who apparently recently admitted at this facility in this patient who diagnosed her with a T8 compression fracture for the patient was evaluated by orthopedic surgery and recommending a brace no surgical procedure was done patient subsequently was [facility] form with the patient apparently was discharged about 3 days ago patient is now presenting back to [facility] on 09/27/2019 with chief complaints of increasing shortness of breath patient also have some cough which is very minimal in nature and increasing sputum production patient denies having any URI symptoms no choking on the food no nausea vomiting no abdominal pain no diarrhea and no urinary symptoms patient still complaining of pain in her mid back area that has not improved significantly about the same and mostly needed pain described tomorrow for the looking at times sharp intensity about 5- 6 out of 10 and radiation denies having any urinary or bladder symptoms with the symptom that the patient was evaluated by their physician on arrival to the ER patient has been afebrile patient did have elevated white count 28 point 6 repeat is 28.4 BUN/creatinine has been normal UA has been negative influenza serology was negative patient did have a chest x-ray which shows patchy right basilar opacity medicine conference of pulmonary vasculature or developing pneumonia patient was started on vancomycin when her blood culture came back positive and requested was consulted for further recommendation about antibiotic therapy. Review of Systems Positive point has been mentioned HPI rest of the systems are negative Past Medical History Past Medical History: Atrial Fibrillation, Asthma, Chest Pain / Angina, Heart Failure, COPD, Diabetes Mellitus, GERD/Reflux, Hyperlipidemia, Hypertension, Myocardial Infarction (NE), Osteoarthritis (OA), Pneumonia Additional Past Medical History / Comment(s): Pt admitted to [facility] on 09/04/19 fall with compression fracture T8-chronic back pain since, acute kidney injury and acute pancreatitis. Other hx; Afib RVR, NIDDM type II, neuropathy bi lateral feet, arthritis multiple joints, osteoporosis, chronic anemia, falls, 2013 shingelles Last Myocardial Infarction Date:: 07/16/11 History of Any Multi-Drug Resistant Organisms: None Reported Past Surgical History: Appendectomy, Breast Surgery, Heart Catheterization, Pacemaker, Tubal Ligation Additional Past Surgical History / Comment(s): 02/2011 cardiac cath-normal, benign L breast lumpectomy, bronchoscopy, EGD/colonoscopy, bilateral cataract removals, 2010 VATS L lung d/t fibrotic lung changes. Past Anesthesia/Blood Transfusion Reactions: No Reported Reaction Additional Past Anesthesia/Blood Transfusion Reaction / Comm: Pt has received blood in past without reaction Type of Cardiac Device: Permanent Pacemaker Device Placement Date:: NOVEMBER 28 2017 Smoking Status: Never smoker - Past Family History Sister(s) Family Medical History: Cancer Additional Family Medical History / Comment(s): breast CA Mother History Unknown: Yes Family Medical History: No Reported History Additional Family Medical History / Comment(s): from car accident no other hx known Father History Unknown: Yes Family Medical History: No Reported History Additional Family Medical History / Comment(s): committed suicide Daughter(s) Family Medical History: Cancer Additional Family Medical History / Comment(s): breast CA Medications and Allergies Home Medications Medication Instructions Recorded Confirmed Type Apixaban [Eliquis] 5 mg PO BID 11/24/14 09/26/19 History Potassium Chloride [Klor-Con 10] 10 meq PO DAILY 11/26/14 09/26/19 History Glimepiride [Amaryl] 2 mg PO BID 06/07/15 09/26/19 History Furosemide [Lasix] 40 mg PO DAILY 05/20/16 09/26/19 History Nadolol [Corgard] 40 mg PO DAILY 05/20/16 09/26/19 History Amiodarone [Cordarone] 100 mg PO DAILY 11/27/17 09/26/19 History Levalbuterol Nebulized [Xopenex 1.25 mg INHALATION RT-BID PRN 06/10/18 09/26/19 History Nebulized] Omeprazole 40 mg PO DAILY 06/10/18 09/26/19 History Verapamil [Isoptin] 80 mg PO BID 06/10/18 09/26/19 History Fluticasone/Salmeterol [Advair 1 puff INHALATION RT-BID 06/03/19 09/26/19 History 500-50 Diskus] Acetaminophen [Tylenol 8 Hour] 650 mg PO BID 09/26/19 09/26/19 History Cholecalciferol [Vitamin D3 (25 5,000 unit PO DAILY 09/26/19 09/26/19 History Mcg = 1000 Iu)] Cyanocobalamin (Vitamin B-12) 1,000 mcg PO DAILY 09/26/19 09/26/19 History [Vitamin B-12] Docusate [Colace] 100 mg PO DAILY 09/26/19 09/26/19 History Ferrous Gluconate 324 mg PO DAILY 09/26/19 09/26/19 History HYDROcodone/APAP 5-325MG [[place] 1 tab PO Q6H PRN 09/26/19 09/26/19 History 5-325] predniSONE 10 mg PO DAILY 09/26/19 09/26/19 History Allergies Allergy/AdvReac Type Severity Reaction Status Date / Time diltiazem Allergy Itching Verified 09/26/19 10:45 morphine AdvReac Confusion Verified 09/26/19 10:45 Physical Exam Vitals: Vital Signs Temp Pulse Pulse Resp BP Pulse Ox 09/28/19 12:00 98.2 F 73 18 100/59 92 L 09/28/19 09:06 74 09/28/19 08:51 72 09/28/19 08:00 97.7 F 112 H 18 122/72 94 L 09/28/19 04:00 98.1 F 80 18 139/77 98 09/28/19 00:00 97.8 F 77 18 128/66 94 L 09/27/19 20:00 97.9 F 102 H 18 131/73 100 09/27/19 19:14 78 09/27/19 19:08 76 09/27/19 16:00 76 18 09/27/19 15:59 98.2 F 76 18 126/72 95 09/27/19 15:49 70 16 09/27/19 15:40 70 16 Intake and Output 09/27/19 09/28/19 09/28/19 22:59 06:59 14:59 Intake Total 1140 660 Output Total 1400 Balance -260 660 Intake: IV 940 Sodium Chloride 0.9% 1, 640 000 ml @ 80 mls/hr IV . [id number] [facility] Rx#:[id number] Vancomycin 1,250 mg In 250 Sodium Chloride 0.9% 250 ml @ 125 mls/hr IVPB ONCE ONE Rx#:[id number] cefTRIAXone 1 gm In 50 Sodium Chloride 0.9% 50 ml @ 100 mls/hr IVPB Q24HR [facility] Rx#:[id number] Oral 200 660 Output: Urine 1400 Other: # Voids 1 1 Weight 66.5 kg GENERAL DESCRIPTION: Elderly female lying in bed, no distress. No tachypnea or accessory muscle of respiration use. HEENT: Shows Pallor , no scleral icterus. Oral mucous membrane is dry. No pharyngeal erythema or thrush NECK: Trachea central, no thyromegaly. LUNGS: Unlabored breathing. Decreased breath sounds at bases. No wheeze or crackle. HEART: S1, S2, regular rate and rhythm. No loud murmur ABDOMEN: Soft, no tenderness , guarding or rigidity, no organomegaly EXTREMITIES: No edema of feet. SKIN: No rash, no masses palpable. NEUROLOGICAL: The patient is awake, alert, oriented x3, mood and affect normal. Results CBC & Chem 7: 09/28/19 06:18 09/28/19 06:09 Labs: Abnormal Lab Results - Last 24 Hours (Table) 09/27/19 09/27/19 09/28/19 Range/Units 16:55 20:14 06:09 WBC (3.8-10.6) k/uL RBC (3.80-5.40) m/uL Hgb (11.4-16.0) gm/dL Hct (34.0-46.0) % RDW (11.5-15.5) % Sodium 136 L (137-145) mmol/L Carbon Dioxide 21 L (22-30) mmol/L BUN 23 H (7-17) mg/dL Glucose 109 H (74-99) mg/dL POC Glucose (mg/dL) 147 H 179 H (75-99) mg/dL 09/28/19 09/28/19 09/28/19 Range/Units 06:18 06:18 11:41 WBC 28.4 H (3.8-10.6) k/uL RBC 3.66 L (3.80-5.40) m/uL Hgb 9.5 L (11.4-16.0) gm/dL Hct 30.5 L (34.0-46.0) % RDW 19.8 H (11.5-15.5) % Sodium (137-145) mmol/L Carbon Dioxide (22-30) mmol/L BUN (7-17) mg/dL Glucose (74-99) mg/dL POC Glucose (mg/dL) 113 H 168 H (75-99) mg/dL Microbiology - Last 24 Hours (Table) 09/26/19 09:50 Blood Culture Gram Stain - Preliminary Blood Blood Culture - Preliminary Group D Enterococcus Assessment and Plan Assessment: patient with Enterococcus faecalis bacteremia which is usually of the gut or urinary origin at this patient admitted hospital with generalized weakness pat ient has no fever but did have elevated white count and to have a T8 compression fracture history recently with concern for possible abdominal versus spinal source as clinical suspicion low for underlying pneumonia. (1) Enterococcal bacteremia Current Visit: Yes Status: Acute Code(s): R78.81 - BACTEREMIA; B95.2 - ENTEROCOCCUS THE CAUSE OF DISEASES CLASSIFIED ELSEWHERE SNOMED Code(s): 880768918253 Plan: 1-blood cultures will be repeated to document clearance of bacteremia 2-Unasyn 3 g every 6 hours and discontinue vancomycin 3-obtain a CT of abdominal pelvis with oral contrast only to rule out any intra- abdominal source for this bacteremia 4-IV fluid We will follow on clinical condition and cultures to further adjust medication if needed Thank you for this consultation will follow this patient along with you Time with Patient: Greater than 30
[2019-09-29 06:13] LABS: Glucose,Whole Blood 105 mg/dL (75-99)
[2019-09-29] MEDS: INSULIN ASPART (NovoLOG) 100 UNIT/ML VIAL SQ SCH ×4 (06:36→19:30)
[2019-09-29] MEDS: AMPICILLIN-SULBACTAM 3 GM in SODIUM CHLORIDE 0.9% 100 ML IVPB SCH ×2 (07:02→12:36)
[2019-09-29] MEDS: IPRATROPIUM-ALBUTEROL 3 ML NEB INHALATION SCH ×4 (08:11→20:08)
[2019-09-29] MEDS: SYMBICORT 160-4.5 MCG INHALER INHALATION SCH ×3 (08:12→20:19)
[2019-09-29] MEDS: SODIUM CHLORIDE 0.9% 1,000 ML IV SCH ×2 (08:37→16:20)
[2019-09-29] MEDS: ACETAMINOPHEN TAB 325 MG TAB PO SCH ×4 (08:39→19:19)
[2019-09-29] MEDS: VERAPAMIL 80 MG TAB PO SCH ×2 (08:45→19:26)
[2019-09-29] MEDS: DOCUSATE 100 MG CAP PO SCH (08:45)
[2019-09-29] MEDS: POTASSIUM CHLORIDE ER 10 MEQ TAB.ER.PRT PO SCH (08:45)
[2019-09-29] MEDS: PANTOPRAZOLE 40 MG TABLET PO SCH (08:45)
[2019-09-29] MEDS: GLIMEPIRIDE 2 MG TAB PO SCH ×2 (08:45→17:05)
[2019-09-29] MEDS: NADOLOL 20 MG TAB PO SCH (08:45)
[2019-09-29] MEDS: APIXABAN 5 MG TAB PO SCH ×2 (08:45→19:26)
[2019-09-29] MEDS: AMIODARONE 100 MG TAB PO SCH (08:45)
[2019-09-29] MEDS: CHOLECALCIFEROL 1,000 UNIT TAB PO SCH (08:45)
[2019-09-29] MEDS: CYANOCOBALAMIN 500 MCG TAB PO SCH (08:45)
[2019-09-29] MEDS: FERROUS SULFATE 325 MG TAB PO SCH (08:46)
[2019-09-29] MEDS: predniSONE 10 MG TAB PO SCH (08:46)
[2019-09-29] MEDS: HYDROcodone/APAP 5-325MG 1 EACH TAB PO PRN ×2 (08:46→16:19)
[2019-09-29] MEDS: ONDANSETRON 4 MG/2 ML VIAL IVP PRN ×2 (09:28→16:20)
[2019-09-29 12:31] LABS: Glucose,Whole Blood 278 mg/dL (75-99)
[2019-09-29] MEDS: AMPICILLIN 2,000 MG in SODIUM CHLORIDE 0.9% 100 ML IVPB SCH ×2 (16:18→19:26)
[2019-09-29 16:36] LABS: Glucose,Whole Blood 178 mg/dL (75-99)
--- NOTE | 2019-09-29 19:23 | PN ---
PROGRESS NOTE DATE OF SERVICE: 09/29/2019 REASON FOR FOLLOW UP: Enterococcus faecalis bacteremia. INTERVAL HISTORY: The patient is currently afebrile. The patient is breathing comfortably. Still complaining of pain in the mid back area. No worsening though. No chest pain, shortness of breath or cough. No abdominal pain. No diarrhea. PHYSICAL EXAMINATION: Blood pressure 111/58 with a pulse of 70, temperature 97.9. She is 93% on room air. General description is an elderly female up in the bed in no distress. Respiratory system: Unlabored breathing. Decreased breath sounds in the bases. No wheeze. Heart S1-S2 regular rate and rhythm. ABDOMEN: Soft, no tenderness. LABS: No new labs have been obtained today. Blood culture from yesterday morning is positive as well. DIAGNOSTIC IMPRESSION AND PLAN: Patient with Enterococcus faecalis bacteremia in this patient who recently did have a T8 fracture. The patient currently with no other obvious source of the bacteremia. UA was negative. CT abdominal pelvis was negative as well with question of either intravascular source versus T8 diskitis/osteomyelitis. We will go ahead and obtain MRI of the thoracic spine along with echocardiogram. Antibiotic was switched to ampicillin 2 grams q.4 hours. Blood cultures will be repeated today as well as tomorrow. Gentamicin could not be added as the organism was resistant and we will monitor clinical course closely. MMODL / IJN: [id number] /
[2019-09-29 19:34] LABS: Glucose,Whole Blood 158 mg/dL (75-99)
--- NOTE | 2019-09-29 19:55 | P.PN ---
Progress Note - Text Progress Note Date: 09/29/19 Chief Complaint: Weak and tired Interval history: This is a pleasant 84-year-old patient of Dr. Royal Beaver. Rather extensive medical history. 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 Patient was recently in the hospital and discharged on September 09 with a diagnosis of acute pancreatitis. Patient does wear a brace because of her T8 fracture. Patient got to the [facility] and was doing well when she was discharged home. Patient is being home for last 3-4 days. In fact which resolved she was able to get Sooth[employer]ase for herself and get about the house. No fever no chills. Yesterday patient's felt really weak unable to sleep. Set up at the couch most of the time. Unable to answer the door as she was feeling really weak. Had not slept the previous night. Patient also had a fever. He she was brought to ER . Admitted with sepsis with positive blood cultures Enterococcus faecalis Today-feeling better. Appetite improving. Sitting up in a chair.. Review of systems: Was done for constitutional, cardiovascular, GI, pulmonary. relevant finding as above Active Medications Acetaminophen (Tylenol Tab) 325 mg PO QID [facility] Last Admin: 09/29/19 19:19 Dose: Not Given Documented by: Hydrocodone Bitart/Acetaminophen ([place] 5-325) 1 each PO Q6H PRN PRN Reason: Pain Last Admin: 09/29/19 16:19 Dose: 1 each Documented by: Albuterol Sulfate (Ventolin Nebulized) 2.5 mg INHALATION RT-BID PRN PRN Reason: Shortness Of Breath Albuterol/Ipratropium (Duoneb 0.5 Mg-3 Mg/3 Ml Soln) 3 ml INHALATION RT-QID [facility] Last Admin: 09/29/19 16:09 Dose: 3 ml Documented by: Amiodarone HCl (Cordarone) 100 mg PO DAILY [facility] Last Admin: 09/29/19 08:45 Dose: 100 mg Documented by: Apixaban (Eliquis) 5 mg PO BID [facility] Last Admin: 09/29/19 19:26 Dose: 5 mg Documented by: Budesonide/Formoterol Fumarate (Symbicort 160-4.5 Mcg Inhaler) 2 puff INHALATION RT-BID [facility] Last Admin: 09/29/19 08:12 Dose: Not Given Documented by: Cholecalciferol (Vitamin D3 (25 Mcg = 1000 Iu)) 5,000 unit PO DAILY [facility] Last Admin: 09/29/19 08:45 Dose: 5,000 unit Documented by: Cyanocobalamin (Vitamin B-12) 1,000 mcg PO DAILY [facility] Last Admin: 09/29/19 08:45 Dose: 1,000 mcg Documented by: Docusate Sodium (Colace) 100 mg PO DAILY [facility] Last Admin: 09/29/19 08:45 Dose: 100 mg Documented by: Ferrous Sulfate (Feosol) 325 mg PO DAILY [facility] Last Admin: 09/29/19 08:46 Dose: 325 mg Documented by: Fluticasone Propionate (Flonase Nasal [place]) 2 spray EA NOSTRIL DAILY PRN PRN Reason: Allergy Symptoms Glimepiride (Amaryl) 2 mg PO AC-BID [facility] Last Admin: 09/29/19 17:05 Dose: 2 mg Documented by: Sodium Chloride (Saline 0.9%) 1,000 mls @ 80 mls/hr IV .[id number] [facility] Last Admin: 09/29/19 16:20 Dose: 80 mls/hr Documented by: Ampicillin Sodium 2,000 mg/ (Sodium Chloride) 100 mls @ 200 mls/hr IVPB Q4HR [facility] Last Admin: 09/29/19 19:26 Dose: 200 mls/hr Documented by: Insulin Aspart (Novolog) 0 unit SQ ACHS [facility]; Protocol Last Admin: 09/29/19 19:30 Dose: 1 unit Documented by: Miscellaneous Information (Pneumonia Protocol Utilized) 1 each PO ONCE PRN PRN Reason: Per Protocol Nadolol (Corgard) 40 mg PO DAILY [facility] Last Admin: 09/29/19 08:45 Dose: 40 mg Documented by: Ondansetron HCl (Zofran) 4 mg IVP Q6HR PRN PRN Reason: Nausea And Vomiting Last Admin: 09/29/19 16:20 Dose: 4 mg Documented by: Pantoprazole Sodium (Protonix) 40 mg PO AC-BRKFST [facility] Last Admin: 09/29/19 08:45 Dose: 40 mg Documented by: Potassium Chloride (K-Dur 10) 10 meq PO DAILY [facility] Last Admin: 09/29/19 08:45 Dose: 10 meq Documented by: Prednisone () 10 mg PO DAILY [facility] Last Admin: 09/29/19 08:46 Dose: 10 mg Documented by: Verapamil HCl (Isoptin) 80 mg PO BID [facility] Last Admin: 09/29/19 19:26 Dose: 80 mg Documented by: Physical examination: VITAL SIGNS: 97.9, 70, 18, 111/58, 96% on room air GENERAL: Sitting up in a chair, looks better EYES: Pupils equal. Conjunctiva normal. HEENT: External appearance of nose and ears normal, oral cavity grossly normal. NECK: JVD not raised; masses not palpable. HEART: First and second heart sounds are normal; no edema. LUNGS: Respiratory rate normal; clear to auscultation. ABDOMEN: Soft, nontender, liver spleen not palpable, no masses palpable. PSYCH: Alert and oriented x3; mood and affect normal. MUSCULOSKELETAL: Evidence of OA especially in the hands CHEST wall: Wearing a brace INVESTIGATIONS, reviewed in the clinical context: White count 28.4 hemoglobin 9.5 potassium 4.1 creatinine 0.85 Computed tomography scan abdomen-right pleural effusion, possible gallstones, diverticulosis. Previous testing White count 28.6-hemoglobin 9.7 platelets 49 potassium 4.2.36 creatinine 0.97 Lactic acid 2.8 troponin 0.035 ProBNP 75420 Influenza type A and type B both negative Chest x-ray film personally reviewed by me-questionable infiltrate Blood culture positive for groupD enterococcus EKG tracing personally reviewed by me-atrial fibrillation with heart rate less than 100 Assessment: -Enterococcus faecalis sepsis with positive blood cultures. Source unknown. Slow to respond. White count greatly elevated. Patient does feel weak and tired. Causing sepsis, POA --Persistent atrial fibrillation rate controlled -Chronic congestive heart failure, EF not known -Diabetes mellitus type II -GERD -Essential hypertension -Hyperlipidemia -Primary osteoarthritis -Chronic T8 compression fracture for which patient uses a brace -Diabetic peripheral neuropathy -Primary osteoarthritis Plan: IV Unasyn. Source of infection being worked up by ID. MRI for ruling out discitis
[2019-09-30] MEDS: AMPICILLIN 2,000 MG in SODIUM CHLORIDE 0.9% 100 ML IVPB SCH ×6 (04:16→19:56)
[2019-09-30] MEDS: SODIUM CHLORIDE 0.9% 1,000 ML IV SCH ×2 (04:17→17:33)
[2019-09-30 07:01] LABS: Glucose,Whole Blood 100 mg/dL (75-99)
[2019-09-30] MEDS: INSULIN ASPART (NovoLOG) 100 UNIT/ML VIAL SQ SCH ×4 (07:07→20:33)
[2019-09-30] MEDS: CHOLECALCIFEROL 1,000 UNIT TAB PO SCH (07:15)
[2019-09-30] MEDS: POTASSIUM CHLORIDE ER 10 MEQ TAB.ER.PRT PO SCH (07:15)
[2019-09-30] MEDS: ACETAMINOPHEN TAB 325 MG TAB PO SCH ×4 (07:15→21:35)
[2019-09-30] MEDS: CYANOCOBALAMIN 500 MCG TAB PO SCH (07:16)
[2019-09-30] MEDS: DOCUSATE 100 MG CAP PO SCH (07:16)
[2019-09-30] MEDS: FERROUS SULFATE 325 MG TAB PO SCH (07:16)
[2019-09-30] MEDS: PANTOPRAZOLE 40 MG TABLET PO SCH (07:16)
[2019-09-30] MEDS: APIXABAN 5 MG TAB PO SCH ×2 (07:16→20:34)
[2019-09-30] MEDS: predniSONE 10 MG TAB PO SCH (07:16)
[2019-09-30] MEDS: VERAPAMIL 80 MG TAB PO SCH ×2 (07:16→20:34)
[2019-09-30] MEDS: AMIODARONE 100 MG TAB PO SCH (07:17)
[2019-09-30] MEDS: NADOLOL 20 MG TAB PO SCH (07:17)
[2019-09-30 08:01] LABS: Anisocytosis Moderate; Basophils # (A) 0.1 k/uL (0-0.2); Basophils % (A) 1 %; Eosinophils # (A) 0.1 k/uL (0-0.7); Eosinophils % (A) 1 %; HCT 31.4 % (34.0-46.0); HGB 9.3 gm/dL (11.4-16.0); Hypochromasia Marked; Lymphocytes # (A) 1.3 k/uL (1.0-4.8); Lymphocytes % (A) 11 %; MCH 25.4 pg (25.0-35.0); MCHC 29.7 g/dL (31.0-37.0); MCV 85.4 fL (80.0-100.0); Mean Platelet Volume 8.1; Monocytes # (A) 1.1 k/uL (0-1.0); Monocytes % (A) 9 %; Neutrophils # (A) 9.4 k/uL (1.3-7.7); Neutrophils % (A) 77 %; Platelet Count 327 k/uL (150-450); Poikilocytosis Slight; RBC 3.68 m/uL (3.80-5.40); RDW 20.1 % (11.5-15.5); WBC 12.2 k/uL (3.8-10.6)
[2019-09-30 08:03] LABS: Calcium 8.5 mg/dL (8.4-10.2); Potassium 4.4 mmol/L (3.5-5.1)
[2019-09-30] MEDS: GLIMEPIRIDE 2 MG TAB PO SCH ×2 (08:14→17:46)
[2019-09-30 08:25] LABS: C Reactive Protein 60.9 mg/L (<10.0)
[2019-09-30] MEDS: SYMBICORT 160-4.5 MCG INHALER INHALATION SCH ×2 (08:39→21:41)
[2019-09-30] MEDS: IPRATROPIUM-ALBUTEROL 3 ML NEB INHALATION SCH ×5 (08:40→23:59)
[2019-09-30 10:11] LABS: Erythrocyte Sedimentation Rate 46 mm/hr (0-20)
[2019-09-30 12:08] LABS: Glucose,Whole Blood 259 mg/dL (75-99)
[2019-09-30 16:50] LABS: Glucose,Whole Blood 162 mg/dL (75-99)
--- NOTE | 2019-09-30 18:26 | PN ---
PROGRESS NOTE DATE OF SERVICE: 09/30/2019 REASON FOR FOLLOWUP: Enterococcus faecalis bacteremia. INTERVAL HISTORY: The patient is currently afebrile. The patient is breathing comfortably. The patient denies having any chest pain or shortness of breath or cough or any worsening pain in the mid back area. No nausea. No vomiting. No diarrhea. PHYSICAL EXAMINATION: Blood pressure is 162/69 with a pulse of 70, temperature is 97.7. She is 93% on room air. General description is an elderly female up in the bed in no distress. RESPIRATORY SYSTEM: Unlabored breathing. Clear to auscultation anteriorly. HEART: S1, S2. Regular rate and rhythm. ABDOMEN: Soft. No tenderness. LABS: Hemoglobin 9.3, white count 12.2, BUN of 19, creatinine 0.88. Blood culture from 09/29 has been negative so far. DIAGNOSTIC IMPRESSION AND PLAN: Patient with Enterococcus faecalis bacteremia. Source is possible T8 diskitis versus endovascular source. Waiting for the echocardiogram to be completed. Unfortunately, MRI could not be done because of the pacemaker. Patient to continue with Unasyn. Blood culture from yesterday negative so far. Monitor clinical course closely. MMODL / IJN: [id number] /
[2019-09-30 20:31] LABS: Glucose,Whole Blood 163 mg/dL (75-99)
--- NOTE | 2019-09-30 22:26 | P.PN ---
Progress Note - Text Progress Note Date: 09/30/19 Chief Complaint: Weak and tired Interval history: This is a pleasant 84-year-old patient of Dr. Royal Beaver. Rather extensive medical history. 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 Patient was recently in the hospital and discharged on September 09 with a diagnosis of acute pancreatitis. Patient does wear a brace because of her T8 fracture. Patient got to the [facility] and was doing well when she was discharged home. Patient is being home for last 3-4 days. In fact which resolved she was able to get [employer] for herself and get about the house. No fever no chills. Yesterday patient's felt really weak unable to sleep. Set up at the couch most of the time. Unable to answer the door as she was feeling really weak. Had not slept the previous night. Patient also had a fever. He she was brought to ER . Admitted with sepsis with positive blood cultures Enterococcus faecalis. Per ID suspicion for T8 discitis. MRI cannot be done because of pacemaker. Today-tired. Started some diet. No new issues. Sitting up. Review of systems: Was done for constitutional, cardiovascular, GI, pulmonary. relevant finding as above Active Medications Acetaminophen (Tylenol Tab) 325 mg PO QID [facility] Last Admin: 09/30/19 21:35 Dose: Not Given Documented by: Hydrocodone Bitart/Acetaminophen ([place]anger 5-325) 1 each PO Q6H PRN PRN Reason: Pain Last Admin: 09/29/19 16:19 Dose: 1 each Documented by: Albuterol Sulfate (Ventolin Nebulized) 2.5 mg INHALATION RT-BID PRN PRN Reason: Shortness Of Breath Albuterol/Ipratropium (Duoneb 0.5 Mg-3 Mg/3 Ml Soln) 3 ml INHALATION RT-QID [facility] Last Admin: 09/30/19 21:41 Dose: Not Given Documented by: Amiodarone HCl (Cordarone) 100 mg PO DAILY [facility] Last Admin: 09/30/19 07:17 Dose: 100 mg Documented by: Apixaban (Eliquis) 5 mg PO BID [facility] Last Admin: 09/30/19 20:34 Dose: 5 mg Documented by: Budesonide/Formoterol Fumarate (Symbicort 160-4.5 Mcg Inhaler) 2 puff INHALATION RT-BID [facility] Last Admin: 09/30/19 21:41 Dose: Not Given Documented by: Cholecalciferol (Vitamin D3 (25 Mcg = 1000 Iu)) 5,000 unit PO DAILY [facility] Last Admin: 09/30/19 07:15 Dose: 5,000 unit Documented by: Cyanocobalamin (Vitamin B-12) 1,000 mcg PO DAILY [facility] Last Admin: 09/30/19 07:16 Dose: 1,000 mcg Documented by: Docusate Sodium (Colace) 100 mg PO DAILY [facility] Last Admin: 09/30/19 07:16 Dose: 100 mg Documented by: Ferrous Sulfate (Feosol) 325 mg PO DAILY [facility] Last Admin: 09/30/19 07:16 Dose: 325 mg Documented by: Fluticasone Propionate (Flonase Nasal [place]) 2 spray EA NOSTRIL DAILY PRN PRN Reason: Allergy Symptoms Glimepiride (Amaryl) 2 mg PO AC-BID [facility] Last Admin: 09/30/19 17:46 Dose: 2 mg Documented by: Sodium Chloride (Saline 0.9%) 1,000 mls @ 80 mls/hr IV .[id number] [facility] Last Admin: 09/30/19 17:33 Dose: Not Given Documented by: Ampicillin Sodium 2,000 mg/ (Sodium Chloride) 100 mls @ 200 mls/hr IVPB Q6H [facility] Last Admin: 09/30/19 19:56 Dose: 200 mls/hr Documented by: Insulin Aspart (Novolog) 0 unit SQ ACHS [facility]; Protocol Last Admin: 09/30/19 20:33 Dose: 1 unit Documented by: Miscellaneous Information (Pneumonia Protocol Utilized) 1 each PO ONCE PRN PRN Reason: Per Protocol Nadolol (Corgard) 40 mg PO DAILY [facility] Last Admin: 09/30/19 07:17 Dose: 40 mg Documented by: Ondansetron HCl (Zofran) 4 mg IVP Q6HR PRN PRN Reason: Nausea And Vomiting Last Admin: 09/29/19 16:20 Dose: 4 mg Documented by: Pantoprazole Sodium (Protonix) 40 mg PO AC-BRKFST [facility] Last Admin: 09/30/19 07:16 Dose: 40 mg Documented by: Potassium Chloride (K-Dur 10) 10 meq PO DAILY [facility] Last Admin: 09/30/19 07:15 Dose: 10 meq Documented by: Prednisone () 10 mg PO DAILY [facility] Last Admin: 09/30/19 07:16 Dose: 10 mg Documented by: Verapamil HCl (Isoptin) 80 mg PO BID [facility] Last Admin: 09/30/19 20:34 Dose: 80 mg Documented by: Physical examination: VITAL SIGNS: 97.7, 70, 16, 116/69, 93% room air GENERAL: Sitting up EYES: Pupils equal. Conjunctiva normal. HEENT: External appearance of nose and ears normal, oral cavity grossly normal. NECK: JVD not raised; masses not palpable. HEART: First and second heart sounds are normal; no edema. LUNGS: Respiratory rate normal; clear to auscultation. ABDOMEN: Soft, nontender, liver spleen not palpable, no masses palpable. PSYCH: Alert and oriented x3; mood and affect normal. MUSCULOSKELETAL: Evidence of OA especially in the hands CHEST wall: Wearing a brace INVESTIGATIONS, reviewed in the clinical context: White count 12.2 hemoglobin 9.3 progression 4.4 creatinine 0.88 CRP 60.9 Previous testing White count 28.6-hemoglobin 9.7 platelets 49 potassium 4.2.36 creatinine 0.97 acid 2.8 troponin 0.035 ProBNP 13417 Influenza type A and type B both negative Chest x-ray film personally reviewed by me-questionable infiltrate Blood culture positive for groupD enterococcus on 09/26/2019, 09/28/2019 EKG tracing personally reviewed by me-atrial fibrillation with heart rate less than 100 Computed tomography scan abdomen-right pleural effusion, possible gallstones, diverticulosis. Assessment: -Enterococcus faecalis sepsis with positive blood cultures. Causing sepsis, POA. Suspicion for T8 discitis. MRI cannot be done. --Persistent atrial fibrillation rate controlled -Chronic congestive heart failure, EF not known -Diabetes mellitus type II -GERD -Essential hypertension -Hyperlipidemia -Primary osteoarthritis -Chronic T8 compression fracture for which patient uses a brace -Diabetic peripheral neuropathy -Primary osteoarthritis Plan: IV Unasyn. Other medications to continue. 2-D echo pending. Repeat blood cultures positive from September 28. Patient will need KIKO 2-D echo negative.
[2019-10-01] MEDS ORDERED: IPRATROPIUM-ALBUTEROL 3 ML NEB INHALATION PRN (00:01)
[2019-10-01] MEDS: AMPICILLIN 2,000 MG in SODIUM CHLORIDE 0.9% 100 ML IVPB SCH ×4 (00:01→19:25)
[2019-10-01] MEDS: SODIUM CHLORIDE 0.9% 1,000 ML IV SCH ×2 (04:13→17:47)
[2019-10-01 07:13] LABS: Glucose,Whole Blood 118 mg/dL (75-99)
[2019-10-01] MEDS: INSULIN ASPART (NovoLOG) 100 UNIT/ML VIAL SQ SCH ×4 (07:33→20:55)
[2019-10-01] MEDS: SYMBICORT 160-4.5 MCG INHALER INHALATION SCH ×2 (07:34→19:59)
[2019-10-01] MEDS: IPRATROPIUM-ALBUTEROL 3 ML NEB INHALATION SCH ×4 (07:34→19:59)
[2019-10-01] MEDS: FERROUS SULFATE 325 MG TAB PO SCH (07:45)
[2019-10-01] MEDS: CHOLECALCIFEROL 1,000 UNIT TAB PO SCH (07:45)
[2019-10-01] MEDS: PANTOPRAZOLE 40 MG TABLET PO SCH (07:45)
[2019-10-01] MEDS: CYANOCOBALAMIN 500 MCG TAB PO SCH (07:45)
[2019-10-01] MEDS: VERAPAMIL 80 MG TAB PO SCH ×2 (07:45→20:55)
[2019-10-01] MEDS: ACETAMINOPHEN TAB 325 MG TAB PO SCH ×4 (07:45→20:54)
[2019-10-01] MEDS: APIXABAN 5 MG TAB PO SCH ×2 (07:45→20:55)
[2019-10-01] MEDS: POTASSIUM CHLORIDE ER 10 MEQ TAB.ER.PRT PO SCH (07:45)
[2019-10-01] MEDS: DOCUSATE 100 MG CAP PO SCH (07:45)
[2019-10-01] MEDS: predniSONE 10 MG TAB PO SCH (07:45)
[2019-10-01] MEDS: NADOLOL 20 MG TAB PO SCH (07:46)
[2019-10-01] MEDS: AMIODARONE 100 MG TAB PO SCH (07:46)
[2019-10-01] MEDS: GLIMEPIRIDE 2 MG TAB PO SCH ×2 (07:46→17:46)
--- NOTE | 2019-10-01 11:44 | ECHOF ---
Referral Reason:bacteremia , ?ENDOCARDITIS MEASUREMENTS -------- HEIGHT: 157.5 cm WEIGHT: 62.1 kg BP: 152/86 RVIDd: 3.7 cm (< 3.3) IVSd: 1.5 cm (0.6 - 1.1) LVIDd: 4.6 cm (3.9 - 5.3) LVPWd: 1.3 cm (0.6 - 1.1) IVSs: 1.7 cm LVIDs: 3.6 cm LVPWs: 1.7 cm LA Diam: 4.3 cm (2.7 - 3.8) LAESV Index (A-L): 54.48 ml/m Ao Diam: 3.5 cm (2.0 - 3.7) AV Cusp: 1.6 cm (1.5 - 2.6) MV EXCURSION: 6.594 mm (> 18.000) MV EF SLOPE: 42 mm/s (70 - 150) EPSS: 0.8 cm MV E Cosme: 1.38 m/s MV DecT: 162 ms MV A Cosme: 0.55 m/s MV E/A Ratio: 2.53 RAP: 15.00 mmHg RVSP: 61.53 mmHg FINDINGS -------- Sinus rhythm. This was a technically adequate study. The left ventricular size is normal. There is moderate concentric left ventricular hypertrophy. O verall left ventricular systolic function is mildly impaired with, an EF between 45 - 50 %. Apical septum LV wall motion is hypokinetic. The right ventricle is mildly enlarged. LA is severely dilated >40 ml/m2 The right atrium is normal in size. Interatrial and interventricular septum intact. There is mild aortic valve sclerosis. The mitral valve leaflets are mildly thickened. Moderate mitral annular calcification present. Mo [id number] mitral regurgitation is present. Moderate to severe tricuspid regurgitation present. There is severe pulmonary hypertension. The r ight ventricular systolic pressure, as measured by Doppler, is 61.53mmHg. Trace/mild (physiologic) pulmonic regurgitation. The aortic root size is normal. The inferior vena cava is dilated with poor inspiratory collapse which is consistent with estimated r ight atrial pressure of 15 mmHg. There is no pericardial effusion. CONCLUSIONS -------- 1. Sinus rhythm. 2. This was a technically adequate study. 3. The left ventricular size is normal. 4. There is moderate concentric left ventricular hypertrophy. 5. Overall left ventricular systolic function is mildly impaired with, an EF between 45 - 50 %. 6. Apical septum LV wall motion is hypokinetic. 7. The right ventricle is mildly enlarged. 8. LA is severely dilated >40 ml/m2 9. The right atrium is normal in size. 10. Interatrial and interventricular septum intact. 11. There is mild aortic valve sclerosis. 12. The mitral valve leaflets are mildly thickened. 13. Moderate mitral annular calcification present. 14. Moderate to severe tricuspid regurgitation present. 15. There is severe pulmonary hypertension. 16. The right ventricular systolic pressure, as measured by Doppler, is 61.53mmHg. 17. Trace/mild (physiologic) pulmonic regurgitation. 18. The aortic root size is normal. 19. The inferior vena cava is dilated with poor inspiratory collapse which is consistent with estimat ed right atrial pressure of 15 mmHg. 20. There is no pericardial effusion. CORROSION TECHNICIAN: Chely Capone RDCS
[2019-10-01 12:05] LABS: Glucose,Whole Blood 268 mg/dL (75-99)
--- NOTE | 2019-10-01 14:20 | PN ---
PROGRESS NOTE DATE OF SERVICE: 10/01/2019 REASON FOR FOLLOWUP: Enterococcus faecalis bacteremia, possibly T8 osteomyelitis. INTERVAL HISTORY: The patient is currently afebrile. The patient is complaining of pain to the mid back area, though no worsening. Denies having any chest pain or shortness of breath or cough. No nausea, vomiting. No abdominal pain, no diarrhea. PHYSICAL EXAMINATION: Blood pressure is 168/93 with a pulse of 80, temperature 96.9, she is 97% on room air. General description is an elderly female, up in the chair in no distress. RESPIRATORY SYSTEM: Unlabored breathing. Decreased breath sounds at the bases, no wheeze. HEART: S1, S2. Regular rate and rhythm. ABDOMEN: Soft, no tenderness. LABS: Blood cultures repeated on 09/29 and 09/30 so far negative. Echocardiogram did not show any valvular regurgitation or vegetation. DIAGNOSTIC IMPRESSION AND PLAN: Patient with Enterococcus faecalis bacteremia, at this point did have extensive workup, so far no clear focus. However, the patient did have T8 fracture and predominantly pain to that area with concern for underlying osteomyelitis at that site not entirely excluded. Unfortunately, MRI could not be done as the patient did have a pacemaker. Will discuss further with Ortho for other diagnostic modality for possible aspirate of that area. For now continue with with the patient as clinically and microbiologically responded. Questions and concerns were answered. MMODL / IJN: [id number] /
--- NOTE | 2019-10-01 16:11 | P.DS ---
Providers Date of admission: 09/26/19 12:25 Expected date of discharge: 10/01/19 Attending physician: Jeffrey Fleming Consults: 09/27/19 12:14 Consult Physician Routine Consulting Provider: Jessi Duran Consult Reason/Comments: follow up Do you want consulting provider notified?: Yes 09/27/19 21:41 Consult Physician Routine Consulting Provider: Lamar Payne Consult Reason/Comments: Postoperative blood culture Do you want consulting provider notified?: Yes Primary care physician: [facility] Course: Chief Complaint: Weak and tired Interval history: This is a pleasant 84-year-old patient of Dr. Royal Beaver. Rather extensive medical history. 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 Patient was recently in the hospital and discharged on September 09 with a diagnosis of acute pancreatitis. Patient does wear a brace because of her T8 fracture. Patient got to the [facility] and was doing well when she was discharged home. Patient is being home for last 3-4 days. In fact which resolved she was able to get [employer] for herself and get about the house. No fever no chills. Yesterday patient's felt really weak unable to sleep. Set up at the couch most of the time. Unable to answer the door as she was feeling really weak. Had not slept the previous night. Patient also had a fever. He she was brought to ER . Admitted with sepsis with positive blood cultures Enterococcus faecalis. Per ID suspicion for T8 discitis. MRI cannot be done because of pacemaker. Today-intermittent back pain. Tolerate some diet. Daughter the bedside. No new issues. Review of systems: Was done for constitutional, cardiovascular, GI, pulmonary. relevant finding as above Active Medications Acetaminophen (Tylenol Tab) 325 mg PO QID [facility] Last Admin: 10/01/19 12:46 Dose: 325 mg Documented by: Hydrocodone Bitart/Acetaminophen (Fife 5-325) 1 each PO Q6H PRN PRN Reason: Pain Last Admin: 09/29/19 16:19 Dose: 1 each Documented by: Albuterol/Ipratropium (Duoneb 0.5 Mg-3 Mg/3 Ml Soln) 3 ml INHALATION RT-QID [facility] Last Admin: 10/01/19 16:04 Dose: 3 ml Documented by: Albuterol/Ipratropium (Duoneb 0.5 Mg-3 Mg/3 Ml Soln) 3 ml INHALATION RT-Q2H PRN PRN Reason: Shortness Of Breath Or Wheezing Amiodarone HCl (Cordarone) 100 mg PO DAILY [facility] Last Admin: 10/01/19 07:46 Dose: 100 mg Documented by: Apixaban (Eliquis) 5 mg PO BID [facility] Last Admin: 10/01/19 07:45 Dose: 5 mg Documented by: Budesonide/Formoterol Fumarate (Symbicort 160-4.5 Mcg Inhaler) 2 puff INHALATION RT-BID [facility] Last Admin: 10/01/19 07:34 Dose: 2 puff Documented by: Cholecalciferol (Vitamin D3 (25 Mcg = 1000 Iu)) 5,000 unit PO DAILY [facility] Last Admin: 10/01/19 07:45 Dose: 5,000 unit Documented by: Cyanocobalamin (Vitamin B-12) 1,000 mcg PO DAILY [facility] Last Admin: 10/01/19 07:45 Dose: 1,000 mcg Documented by: Docusate Sodium (Colace) 100 mg PO DAILY [facility] Last Admin: 10/01/19 07:45 Dose: 100 mg Documented by: Ferrous Sulfate (Feosol) 325 mg PO DAILY [facility] Last Admin: 10/01/19 07:45 Dose: 325 mg Documented by: Fluticasone Propionate (Flonase Nasal [place]) 2 spray EA NOSTRIL DAILY PRN PRN Reason: Allergy Symptoms Glimepiride (Amaryl) 2 mg PO AC-BID [facility] Last Admin: 10/01/19 07:46 Dose: 2 mg Documented by: Sodium Chloride (Saline 0.9%) 1,000 mls @ 80 mls/hr IV .[id number] [facility] Last Admin: 10/01/19 04:13 Dose: Not Given Documented by: Ampicillin Sodium 2,000 mg/ (Sodium Chloride) 100 mls @ 200 mls/hr IVPB Q6H [facility] Last Admin: 10/01/19 12:45 Dose: 200 mls/hr Documented by: Insulin Aspart (Novolog) 0 unit SQ ACHS [facility]; Protocol Last Admin: 10/01/19 12:46 Dose: 4 unit Documented by: Miscellaneous Information (Pneumonia Protocol Utilized) 1 each PO ONCE PRN PRN Reason: Per Protocol Nadolol (Corgard) 40 mg PO DAILY [facility] Last Admin: 10/01/19 07:46 Dose: 40 mg Documented by: Ondansetron HCl (Zofran) 4 mg IVP Q6HR PRN PRN Reason: Nausea And Vomiting Last Admin: 09/29/19 16:20 Dose: 4 mg Documented by: Pantoprazole Sodium (Protonix) 40 mg PO AC-BRKFST [facility] Last Admin: 10/01/19 07:45 Dose: 40 mg Documented by: Potassium Chloride (K-Dur 10) 10 meq PO DAILY [facility] Last Admin: 10/01/19 07:45 Dose: 10 meq Documented by: Prednisone () 10 mg PO DAILY [facility] Last Admin: 10/01/19 07:45 Dose: 10 mg Documented by: Verapamil HCl (Isoptin) 80 mg PO BID [facility] Last Admin: 10/01/19 07:45 Dose: 80 mg Documented by: Physical examination: VITAL SIGNS: 96.9, 80, 20, 168/93, 97% room air GENERAL: Sitting over a chair, not in distress EYES: Pupils equal. Conjunctiva normal. HEENT: External appearance of nose and ears normal, oral cavity grossly normal. NECK: JVD not raised; masses not palpable. HEART: First and second heart sounds are normal; no edema. LUNGS: Respiratory rate normal; clear to auscultation. ABDOMEN: Soft, nontender, liver spleen not palpable, no masses palpable. PSYCH: Alert and oriented x3; mood and affect normal. MUSCULOSKELETAL: Evidence of OA especially in the hands CHEST wall: Wearing a brace INVESTIGATIONS, reviewed in the clinical context: White count 12.2 hemoglobin 9.3 progression 4.4 creatinine 0.88 CRP 60.9 Previous testing White count 28.6-hemoglobin 9.7 platelets 49 potassium 4.2.36 creatinine 0.97 acid 2.8 troponin 0.035 ProBNP 34413 Influenza type A and type B both negative Chest x-ray film personally reviewed by me-questionable infiltrate Blood culture positive for groupD enterococcus on 09/26/2019, 09/28/2019 EKG tracing personally reviewed by me-atrial fibrillation with heart rate less than 100 Computed tomography scan abdomen-right pleural effusion, possible gallstones, diverticulosis. Assessment: -Enterococcus faecalis sepsis with positive blood cultures. Causing sepsis, POA. Suspicion for T8 discitis. MRI cannot be done. --Persistent atrial fibrillation rate controlled -Chronic congestive heart failure, EF not known -Diabetes mellitus type II -GERD -Essential hypertension -Hyperlipidemia -Primary osteoarthritis -Chronic T8 compression fracture for which patient uses a brace -Diabetic peripheral neuropathy -Primary osteoarthritis Plan: PICC line is being ordered. Discussed with the patient and daughter. Patient agreeable to go to [facility]CF to complete course of antibiotics. Other medication treatment to continue. Discussed with shelter case manager Yulissa. Patient Condition at Discharge: Stable Plan - Discharge Summary Discharge Rx Participant: No New Discharge Prescriptions: No Action Apixaban [Eliquis] 5 mg PO BID Potassium Chloride [Klor-Con 10] 10 meq PO DAILY Glimepiride [Amaryl] 2 mg PO BID Furosemide [Lasix] 40 mg PO DAILY Nadolol [Corgard] 40 mg PO DAILY Amiodarone [Cordarone] 100 mg PO DAILY Verapamil [Isoptin] 80 mg PO BID Omeprazole 40 mg PO DAILY Levalbuterol Nebulized [Xopenex Nebulized] 1.25 mg INHALATION RT-BID PRN PRN Reason: Shortness Of Breath Fluticasone/Salmeterol [Advair 500-50 Diskus] 1 puff INHALATION RT-BID Acetaminophen [Tylenol 8 Hour] 650 mg PO BID Cholecalciferol [Vitamin D3 (25 Mcg = 1000 Iu)] 5,000 unit PO DAILY Cyanocobalamin (Vitamin B-12) [Vitamin B-12] 1,000 mcg PO DAILY HYDROcodone/APAP 5-325MG [Fife 5-325] 1 tab PO Q6H PRN PRN Reason: Pain Docusate [Colace] 100 mg PO DAILY predniSONE 10 mg PO DAILY Ferrous Gluconate 324 mg PO DAILY Discharge Medication List Apixaban [Eliquis] 5 mg PO BID 11/24/14 [History] Potassium Chloride [Klor-Con 10] 10 meq PO DAILY 11/26/14 [History] Glimepiride [Amaryl] 2 mg PO BID 06/07/15 [History] Furosemide [Lasix] 40 mg PO DAILY 05/20/16 [History] Nadolol [Corgard] 40 mg PO DAILY 05/20/16 [History] Amiodarone [Cordarone] 100 mg PO DAILY 11/27/17 [History] Levalbuterol Nebulized [Xopenex Nebulized] 1.25 mg INHALATION RT-BID PRN 06/10/18 [History] Omeprazole 40 mg PO DAILY 06/10/18 [History] Verapamil [Isoptin] 80 mg PO BID 06/10/18 [History] Fluticasone/Salmeterol [Advair 500-50 Diskus] 1 puff INHALATION RT-BID 06/03/19 [History] Acetaminophen [Tylenol 8 Hour] 650 mg PO BID 09/26/19 [History] Cholecalciferol [Vitamin D3 (25 Mcg = 1000 Iu)] 5,000 unit PO DAILY 09/26/19 [History] Cyanocobalamin (Vitamin B-12) [Vitamin B-12] 1,000 mcg PO DAILY 09/26/19 [History] Docusate [Colace] 100 mg PO DAILY 09/26/19 [History] Ferrous Gluconate 324 mg PO DAILY 09/26/19 [History] HYDROcodone/APAP 5-325MG [Fife 5-325] 1 tab PO Q6H PRN 09/26/19 [History] predniSONE 10 mg PO DAILY 09/26/19 [History] Follow up Appointment(s)/Referral(s): [facility], [NON-STAFF] - Yasmany Tejada PAC [PHYSICIAN LARD RENDERER] - 1 Week (Patient may follow up with Yasmany Tejada PA-C or Dr. Leonel Duran at [facility] in approximately 1 week for further evaluation. Patient will plan to follow up next week following discharge.) Constantin Farias MD [STAFF PHYSICIAN] - 1-2 days Activity/Diet/Wound Care/Special Instructions: 1. Patient should continue to wear TLSO brace for comfort and support while sitting upright at greater than 45, during increase activities, and during ambulation 2. Brace does not have to be worn while lying in bed or while bathing 3. Avoid excessive bending, twisting, lifting; no lifting greater than 10 pounds
--- NOTE | 2019-10-01 16:12 | P.PN ---
Progress Note - Text Progress Note Date: 10/01/19 Chief Complaint: Weak and tired Interval history: This is a pleasant 84-year-old patient of Dr. Royal Beaver. Rather extensive medical history. 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 Patient was recently in the hospital and discharged on September 09 with a diagnosis of acute pancreatitis. Patient does wear a brace because of her T8 fracture. Patient got to the [facility] and was doing well when she was discharged home. Patient is being home for last 3-4 days. In fact which resolved she was able to get [employer] for herself and get about the house. No fever no chills. Yesterday patient's felt really weak unable to sleep. Set up at the couch most of the time. Unable to answer the door as she was feeling really weak. Had not slept the previous night. Patient also had a fever. He she was brought to ER . Admitted with sepsis with positive blood cultures Enterococcus faecalis. Per ID suspicion for T8 discitis. MRI cannot be done because of pacemaker. Today-intermittent back pain. Tolerate some diet. Daughter the bedside. No new issues. Review of systems: Was done for constitutional, cardiovascular, GI, pulmonary. relevant finding as above Active Medications Acetaminophen (Tylenol Tab) 325 mg PO QID [facility] Last Admin: 10/01/19 12:46 Dose: 325 mg Documented by: Hydrocodone Bitart/Acetaminophen ([place] 5-325) 1 each PO Q6H PRN PRN Reason: Pain Last Admin: 09/29/19 16:19 Dose: 1 each Documented by: Albuterol/Ipratropium (Duoneb 0.5 Mg-3 Mg/3 Ml Soln) 3 ml INHALATION RT-QID [facility] Last Admin: 10/01/19 16:04 Dose: 3 ml Documented by: Albuterol/Ipratropium (Duoneb 0.5 Mg-3 Mg/3 Ml Soln) 3 ml INHALATION RT-Q2H PRN PRN Reason: Shortness Of Breath Or Wheezing Amiodarone HCl (Cordarone) 100 mg PO DAILY [facility] Last Admin: 10/01/19 07:46 Dose: 100 mg Documented by: Apixaban (Eliquis) 5 mg PO BID [facility] Last Admin: 10/01/19 07:45 Dose: 5 mg Documented by: Budesonide/Formoterol Fumarate (Symbicort 160-4.5 Mcg Inhaler) 2 puff INHALATION RT-BID [facility] Last Admin: 10/01/19 07:34 Dose: 2 puff Documented by: Cholecalciferol (Vitamin D3 (25 Mcg = 1000 Iu)) 5,000 unit PO DAILY [facility] Last Admin: 10/01/19 07:45 Dose: 5,000 unit Documented by: Cyanocobalamin (Vitamin B-12) 1,000 mcg PO DAILY [facility] Last Admin: 10/01/19 07:45 Dose: 1,000 mcg Documented by: Docusate Sodium (Colace) 100 mg PO DAILY [facility] Last Admin: 10/01/19 07:45 Dose: 100 mg Documented by: Ferrous Sulfate (Feosol) 325 mg PO DAILY [facility] Last Admin: 10/01/19 07:45 Dose: 325 mg Documented by: Fluticasone Propionate (Flonase Nasal [place]) 2 spray EA NOSTRIL DAILY PRN PRN Reason: Allergy Symptoms Glimepiride (Amaryl) 2 mg PO AC-BID [facility] Last Admin: 10/01/19 07:46 Dose: 2 mg Documented by: Sodium Chloride (Saline 0.9%) 1,000 mls @ 80 mls/hr IV .[id number] [facility] Last Admin: 10/01/19 04:13 Dose: Not Given Documented by: Ampicillin Sodium 2,000 mg/ (Sodium Chloride) 100 mls @ 200 mls/hr IVPB Q6H [facility] Last Admin: 10/01/19 12:45 Dose: 200 mls/hr Documented by: Insulin Aspart (Novolog) 0 unit SQ ACHS [facility]; Protocol Last Admin: 10/01/19 12:46 Dose: 4 unit Documented by: Miscellaneous Information (Pneumonia Protocol Utilized) 1 each PO ONCE PRN PRN Reason: Per Protocol Nadolol (Corgard) 40 mg PO DAILY [facility] Last Admin: 10/01/19 07:46 Dose: 40 mg Documented by: Ondansetron HCl (Zofran) 4 mg IVP Q6HR PRN PRN Reason: Nausea And Vomiting Last Admin: 09/29/19 16:20 Dose: 4 mg Documented by: Pantoprazole Sodium (Protonix) 40 mg PO AC-BRKFST [facility] Last Admin: 10/01/19 07:45 Dose: 40 mg Documented by: Potassium Chloride (K-Dur 10) 10 meq PO DAILY [facility] Last Admin: 10/01/19 07:45 Dose: 10 meq Documented by: Prednisone () 10 mg PO DAILY [facility] Last Admin: 10/01/19 07:45 Dose: 10 mg Documented by: Verapamil HCl (Isoptin) 80 mg PO BID [facility] Last Admin: 10/01/19 07:45 Dose: 80 mg Documented by: Physical examination: VITAL SIGNS: 96.9, 80, 20, 168/93, 97% room air GENERAL: Sitting over a chair, not in distress EYES: Pupils equal. Conjunctiva normal. HEENT: External appearance of nose and ears normal, oral cavity grossly normal. NECK: JVD not raised; masses not palpable. HEART: First and second heart sounds are normal; no edema. LUNGS: Respiratory rate normal; clear to auscultation. ABDOMEN: Soft, nontender, liver spleen not palpable, no masses palpable. PSYCH: Alert and oriented x3; mood and affect normal. MUSCULOSKELETAL: Evidence of OA especially in the hands CHEST wall: Wearing a brace INVESTIGATIONS, reviewed in the clinical context: White count 12.2 hemoglobin 9.3 progression 4.4 creatinine 0.88 CRP 60.9 Previous testing White count 28.6-hemoglobin 9.7 platelets 49 potassium 4.2.36 creatinine 0.97 acid 2.8 troponin 0.035 ProBNP 23785 Influenza type A and type B both negative Chest x-ray film personally reviewed by me-questionable infiltrate Blood culture positive for groupD enterococcus on 09/26/2019, 09/28/2019 EKG tracing personally reviewed by me-atrial fibrillation with heart rate less than 100 Computed tomography scan abdomen-right pleural effusion, possible gallstones, diverticulosis. Assessment: -Enterococcus faecalis sepsis with positive blood cultures. Causing sepsis, POA. Suspicion for T8 discitis. MRI cannot be done. --Persistent atrial fibrillation rate controlled -Chronic congestive heart failure, EF not known -Diabetes mellitus type II -GERD -Essential hypertension -Hyperlipidemia -Primary osteoarthritis -Chronic T8 compression fracture for which patient uses a brace -Diabetic peripheral neuropathy -Primary osteoarthritis Plan: PICC line is being ordered. Discussed with the patient and daughter. Patient agreeable to go to [facility] to complete course of antibiotics. Other medication treatment to continue. Discussed with rn case manager hospice Yulissa.
[2019-10-01 17:18] LABS: Glucose,Whole Blood 96 mg/dL (75-99)
[2019-10-01 20:50] LABS: Glucose,Whole Blood 153 mg/dL (75-99)
[2019-10-02 01:42] LABS: Glucose,Whole Blood 101 mg/dL (75-99)
[2019-10-02] MEDS: ONDANSETRON 4 MG/2 ML VIAL IVP PRN ×2 (04:28→12:40)
[2019-10-02] MEDS: SODIUM CHLORIDE 0.9% 1,000 ML IV SCH (04:29)
[2019-10-02 07:00] LABS: Glucose,Whole Blood 126 mg/dL (75-99)
[2019-10-02] MEDS: IPRATROPIUM-ALBUTEROL 3 ML NEB INHALATION SCH ×2 (07:47→12:07)
[2019-10-02] MEDS: SYMBICORT 160-4.5 MCG INHALER INHALATION SCH (07:47)
[2019-10-02] MEDS: AMPICILLIN 2,000 MG in SODIUM CHLORIDE 0.9% 100 ML IVPB SCH ×4 (08:25→12:41)
[2019-10-02] MEDS: predniSONE 10 MG TAB PO SCH (08:34)
[2019-10-02] MEDS: DOCUSATE 100 MG CAP PO SCH (08:34)
[2019-10-02] MEDS: ACETAMINOPHEN TAB 325 MG TAB PO SCH ×2 (08:34→12:41)
[2019-10-02] MEDS: CYANOCOBALAMIN 500 MCG TAB PO SCH (08:34)
[2019-10-02] MEDS: VERAPAMIL 80 MG TAB PO SCH (08:34)
[2019-10-02] MEDS: FERROUS SULFATE 325 MG TAB PO SCH (08:34)
[2019-10-02] MEDS: PANTOPRAZOLE 40 MG TABLET PO SCH (08:34)
[2019-10-02] MEDS: CHOLECALCIFEROL 1,000 UNIT TAB PO SCH (08:34)
[2019-10-02] MEDS: POTASSIUM CHLORIDE ER 10 MEQ TAB.ER.PRT PO SCH (08:34)
[2019-10-02] MEDS: GLIMEPIRIDE 2 MG TAB PO SCH (08:35)
[2019-10-02] MEDS: NADOLOL 20 MG TAB PO SCH (08:35)
[2019-10-02] MEDS: AMIODARONE 100 MG TAB PO SCH (08:35)
[2019-10-02] MEDS: APIXABAN 5 MG TAB PO SCH (08:35)
[2019-10-02] MEDS: INSULIN ASPART (NovoLOG) 100 UNIT/ML VIAL SQ SCH ×2 (08:36→12:44)
--- NOTE | 2019-10-02 11:22 | CDI ---
Documentation Clarification Form Date: 10/02/2019 11:07:01 AM From: Anais Richmond CCS, CCDS Admit Date: 09/26/2019 12:25:00 PM Patient Name: Vashti Jane Visit Number: [id number] Discharge Date: ATTENTION: The Clinical Documentation Specialists (CDI) and [facility] Coding Staff appreciate your assistance in clarifying documentation. Please respond to the clarification below the line at the bottom and electronically sign. The CDI & [facility] Coding staff will review the response and follow-up if needed. Please note: Queries are made part of the Legal Health Record. If you have any questions, please contact the author of this message via ITS. Dr. Jeffrey Fleming: Per the 10/01 attending progress note: "Persistent atrial fibrillation rate controlled -Chronic congestive heart failure, EF not known." History/Risk Factors: A fib, CHF, COPD, DM, GERD, Hypertension, hyperlipidemia, Osteoarthritis, T8 compression fracture, DM II w/peripheral neuropathy bilateral feet, Osteoarthritis & osteoporosis. Clinical Indicators: Presented weak & tired. Recently diagnosed & hospitalized with acute pancreatitis, wearing a brace for T8 fracture, discharged to [facility] & then discharged home. Being treated for possible osteomyelitis from T8 compression fracture, ruling out endocarditis & Group D strep Sepsis from possible T8 discitis. Admission VS: T 97.8, P 100, R 18, BP 101/51, PO 88 - 94 nc BNP: 12,900 Echocardiogram Results 09/30: Mod LVH, Systolic mildly impaired, EF 45-50%, Mild aortic valve sclerosis, Mod-severe TR, Severe pulmonary hypertension. Chest X Ray 09/26: Pulmonary vascular congestion developing pneumonia. 09/27: Resolving right lower lobe infiltrate. Treatment: INH Albuterol, IV Solumedrol, IV fluid 100, IV Dilaudid, IV Rocephin, IV Azithromycin, IV Lasix, IV Vancomycin, IV Zosyn, IV Zofran In your professional opinion, can you please clarify the acuity and type of CHF if known? Heart Failure ruled out Systolic Heart Failure: o Acute o Chronic o Acute on Chronic Other type of heart failure, please specify: Unable to determine Other, please specify (Last Revision: December 2017) See discharge summary. No change in documentation. MTDD
[2019-10-02 11:53] LABS: Glucose,Whole Blood 180 mg/dL (75-99)
[2019-10-02] MEDS ORDERED: LIDOCAINE 1% INJ 10MG/ML (20 ML MDV) SQ ONE (13:08)
--- NOTE | 2019-10-02 13:29 | IR ---
EXAMINATION TYPE: IR cvc insert >=5 years DATE OF EXAM: 10/02/2019 COMPARISON: NONE CLINICAL HISTORY: Infection Needs long-term intravenous access for antibiotics. PROCEDURE: After informed consent, the skin overlying the right basilic vein was localized with ultrasound and n oted to be compressible and patent. An ultrasound image was obtained and submitted on the patient's chart. The overlying skin was prepped and draped and Lidocaine was used for local anesthesia. A ski n mary was made with a scalpel. Access was gained to the vein under ultrasound guidance with a 21 ga uge needle and a 0.018 inch wire was advanced. Access site was dilated with Peel-Away sheath and cat heter tailored to the appropriate length and advanced such that the distal tip is at the cavoatrial j unction. Spot image was obtained verifying placement. Catheter was fixed to the skin with suture an d a sterile dressing was placed following hemostasis. Catheter was aspirated and flushed with saline . Patient was discharged in stable condition without complication. Maximal barrier technique is util ized. Ultrasound image is documented on the chart. Ultrasound used with sterile technique. Fluoro time and fluoroscopic images submitted to document procedure: 0.1 minutes, 111 intraoperative images document the procedure IMPRESSION: STATUS POST ULTRASOUND AND FLUOROSCOPIC GUIDED PICC LINE PLACEMENT, READY FOR USE. THIS PROCEDURE WAS PERFORMED BY THE UNDERSIGNED.
--- NOTE | 2019-10-02 14:37 | P.DS ---
Providers Date of admission: 09/26/19 12:25 Expected date of discharge: 10/02/19 Attending physician: Jeffrey Fleming Consults: 09/27/19 12:14 Consult Physician Routine Consulting Provider: Jessi Duran Consult Reason/Comments: follow up Do you want consulting provider notified?: Yes 09/27/19 21:41 Consult Physician Routine Consulting Provider: Lamar Rader Consult Reason/Comments: Postoperative blood culture Do you want consulting provider notified?: Yes Primary care physician: [facility] Course: Chief Complaint: Weak and tired Interval history: This is a pleasant 84-year-old patient of Dr. Royal Beaver. Rather extensive medical history. 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 Patient was recently in the hospital and discharged on September 09 with a diagnosis of acute pancreatitis. Patient does wear a brace because of her T8 fracture. Patient got to the [facility] and was doing well when she was discharged home. Patient is being home for last 3-4 days. In fact which resolved she was able to get [employer] for herself and get about the house. No fever no chills. Yesterday patient's felt really weak unable to sleep. Set up at the couch most of the time. Unable to answer the door as she was feeling really weak. Had not slept the previous night. Patient also had a fever. He she was brought to ER . Admitted with sepsis with positive blood cultures Enterococcus faecalis. Per ID suspicion for T8 discitis. MRI cannot be done because of pacemaker. Patient will have an outpatient biopsy this coming Monday by Dr. [facility]. Today-stable. No new issues. Tolerating a diet. Discussed with Dr. Edwardo rader from ID. Okay to DC. 6 weeks of ampicillin. Discussion and discharge planning more than 35 minutes Physical examination: VITAL SIGNS: 97.3, 84, 20, 162/89, 96% room air GENERAL: Sitting up, comfortable with a brace EYES: Pupils equal. Conjunctiva normal. HEENT: External appearance of nose and ears normal, oral cavity grossly normal. NECK: JVD not raised; masses not palpable. HEART: First and second heart sounds are normal; no edema. LUNGS: Respiratory rate normal; clear to auscultation. ABDOMEN: Soft, nontender, liver spleen not palpable, no masses palpable. PSYCH: Alert and oriented x3; mood and affect normal. MUSCULOSKELETAL: Evidence of OA especially in the hands CHEST wall: Wearing a brace INVESTIGATIONS, reviewed in the clinical context: White count 12.2 hemoglobin 9.3 progression 4.4 creatinine 0.88 CRP 60.9 Previous testing White count 28.6-hemoglobin 9.7 platelets 49 potassium 4.2.36 creatinine 0.97 acid 2.8 troponin 0.035 ProBNP 45900 Influenza type A and type B both negative Chest x-ray film personally reviewed by me-questionable infiltrate Blood culture positive for groupD enterococcus on 09/26/2019, 09/28/2019 EKG tracing personally reviewed by me-atrial fibrillation with heart rate less than 100 Computed tomography scan abdomen-right pleural effusion, possible gallstones, diverticulosis. 2-D echo-EF 45-50%, moderate to severe tricuspid regurgitation, severe pulmonary hypertension Assessment: -Enterococcus faecalis sepsis with positive blood cultures. Causing sepsis, POA. Suspicion for T8 discitis. MRI cannot be done. Outpatient biopsy --Persistent atrial fibrillation rate controlled -Chronic congestive heart failure, diastolic dysfunction EF 45-50% -Moderate to severe tricuspid regurgitation, nontraumatic Secondary severe pulmonary hypertension -Diabetes mellitus type II -GERD -Essential hypertension -Hyperlipidemia -Primary osteoarthritis -Chronic T8 compression fracture for which patient uses a brace -Diabetic peripheral neuropathy -Primary osteoarthritis Disposition: . [place] Patient Condition at Discharge: Stable Plan - Discharge Summary Discharge Rx Participant: No New Discharge Prescriptions: New Ipratropium-Albuterol Nebulize [Duoneb 0.5 mg-3 mg/3 ml Soln] 3 ml INHALATION RT-QID ampul.neb Sennosides-Docusate Sodium [Senokot-S] 1 tab PO DAILY #1 tablet Ampicillin Sodium 2,000 mg IVPB Q6HR #168 vial Continue Apixaban [Eliquis] 5 mg PO BID Glimepiride [Amaryl] 2 mg PO BID Nadolol [Corgard] 40 mg PO DAILY Amiodarone [Cordarone] 100 mg PO DAILY Verapamil [Isoptin] 80 mg PO BID Omeprazole 40 mg PO DAILY Fluticasone/Salmeterol [Advair 500-50 Diskus] 1 puff INHALATION RT-BID Acetaminophen [Tylenol 8 Hour] 650 mg PO BID Cholecalciferol [Vitamin D3 (25 Mcg = 1000 Iu)] 5,000 unit PO DAILY Cyanocobalamin (Vitamin B-12) [Vitamin B-12] 1,000 mcg PO DAILY predniSONE 10 mg PO DAILY Ferrous Gluconate 324 mg PO DAILY HYDROcodone/APAP 5-325MG [[place] 5-325] 1 tab PO Q6H PRN #12 tab PRN Reason: Pain Discontinued Potassium Chloride [Klor-Con 10] 10 meq PO DAILY Furosemide [Lasix] 40 mg PO DAILY Levalbuterol Nebulized [Xopenex Nebulized] 1.25 mg INHALATION RT-BID PRN PRN Reason: Shortness Of Breath Docusate [Colace] 100 mg PO DAILY Discharge Medication List Apixaban [Eliquis] 5 mg PO BID 11/24/14 [History] Glimepiride [Amaryl] 2 mg PO BID 06/07/15 [History] Nadolol [Corgard] 40 mg PO DAILY 05/20/16 [History] Amiodarone [Cordarone] 100 mg PO DAILY 11/27/17 [History] Omeprazole 40 mg PO DAILY 06/10/18 [History] Verapamil [Isoptin] 80 mg PO BID 06/10/18 [History] Fluticasone/Salmeterol [Advair 500-50 Diskus] 1 puff INHALATION RT-BID 06/03/19 [History] Acetaminophen [Tylenol 8 Hour] 650 mg PO BID 09/26/19 [History] Cholecalciferol [Vitamin D3 (25 Mcg = 1000 Iu)] 5,000 unit PO DAILY 09/26/19 [History] Cyanocobalamin (Vitamin B-12) [Vitamin B-12] 1,000 mcg PO DAILY 09/26/19 [History] Ferrous Gluconate 324 mg PO DAILY 09/26/19 [History] predniSONE 10 mg PO DAILY 09/26/19 [History] Ampicillin Sodium 2,000 mg IVPB Q6HR #168 vial 10/02/19 [Rx] HYDROcodone/APAP 5-325MG [[place] 5-325] 1 tab PO Q6H PRN #12 tab 10/02/19 [Rx] Ipratropium-Albuterol Nebulize [Duoneb 0.5 mg-3 mg/3 ml Soln] 3 ml INHALATION RT-QID ampul.neb 10/02/19 [Rx] Sennosides-Docusate Sodium [Senokot-S] 1 tab PO DAILY #1 tablet 10/02/19 [Rx] Follow up Appointment(s)/Referral(s): [facility], [NON-STAFF] - Yasmany Tejada PAC [PHYSICIAN PRESSER [employer]] - 1 Week (Patient may follow up with Yasmany Tejada PA-C or Dr. Leonel Duran at [facility] in approximately 1 week for further evaluation. Patient will plan to follow up next week following discharge.) Lamar Rader MD [STAFF PHYSICIAN] - 1 Week Constantin Farias MD [STAFF PHYSICIAN] - 1-2 days Ambulatory/Diagnostic Orders: Basic Metabolic Panel [LAB.AMB] Location: None Selected C Reactive Protein [LAB.AMB] Location: None Selected Complete Blood Count w/diff [LAB.AMB] Location: None Selected Erythrocyte Sedimentation Rate [LAB.AMB] Location: None Selected Activity/Diet/Wound Care/Special Instructions: 1. Patient should continue to wear TLSO brace for comfort and support while sitting upright at greater than 45, during increase activities, and during ambulation 2. Brace does not have to be worn while lying in bed or while bathing 3. Avoid excessive bending, twisting, lifting; no lifting greater than 10 pounds
--- NOTE | 2019-10-02 14:43 | PN ---
PROGRESS NOTE DATE OF SERVICE: 10/02/2019 REASON FOR FOLLOWUP: Enterococcus faecalis bacteremia and a question of T8 diskitis/osteomyelitis. INTERVAL HISTORY: The patient is currently afebrile. Patient is feeling slightly better today. Pain to the mid back area slightly decreased in intensity. Denies having any chest pain. No shortness of breath. No cough. No abdominal pain, no diarrhea. PHYSICAL EXAMINATION: On examination, her blood pressure is 152/89 with a pulse of 84, temperature 97.3. She is 96% on room air. General description is an elderly female, up in the chair in no distress. RESPIRATORY SYSTEM: Unlabored breathing, clear to auscultation anteriorly. HEART: S1, S2. Regular rate and rhythm. ABDOMEN: Soft, no tenderness. LABS: BUN of 19, creatinine 0.88. CRP was 16, 46. Blood culture 119 and 120 are negative. DIAGNOSTIC IMPRESSION AND PLAN: Patient with Enterococcus faecalis bacteremia. In this patient, follow up blood culture has been negative, but no source of infection. Urine negative. CT abdominal pelvis was negative. Echocardiogram was negative, possible T8 diskitis/osteomyelitis. MRI could not be done because of a pacemaker. This was discussed with the spine surgeon, . . Will attempt to do an aspirate of this area to confirm the diagnosis of diskitis/osteomyelitis. She already got the PICC line. Plan will be for 6 weeks of IV ampicillin 2 q.6 hours, gentamicin could not be added for adjusting with the resistant pattern of this pathogen and will monitor clinical course closely. MMODL / IJN: [id number] /
[2019-10-02 15:00] VITALS: BP 143/62; PULSE 70; RESP 16; TEMP 98.2
== END 2019-10-02 16:14 | DRG 872 ==
LOC: EC 09:31 → 4SSUR 12:25 → 3SCARD 12:38 → 6NMEDSUR 09-29 20:50
PROVIDERS: ADMIT Hospitalist; ATTEND Hospitalist
PROC: 02HV33Z Insertion of Infusion Device into Superior Vena Cava, Percutaneous Approach (ICD-10-PCS; principal; 2019-10-02 07:30)
DX: A41.81 Sepsis due to Enterococcus (principal); I48.19 Other persistent atrial fibrillation; I50.32 Chronic diastolic (congestive) heart failure; J44.1 Chronic obstructive pulmonary disease with (acute) exacerbation; M46.24 Osteomyelitis of vertebra, thoracic region; I27.20 Pulmonary hypertension, unspecified; R62.7 Adult failure to thrive; E11.42 Type 2 diabetes mellitus with diabetic polyneuropathy; I11.0 Hypertensive heart disease with heart failure; J84.10 Pulmonary fibrosis, unspecified; E78.5 Hyperlipidemia, unspecified; E86.0 Dehydration; I36.1 Nonrheumatic tricuspid (valve) insufficiency; I25.2 Old myocardial infarction; K21.9 Gastro-esophageal reflux disease without esophagitis; M15.9 Polyosteoarthritis, unspecified; M43.16 Spondylolisthesis, lumbar region; M47.816 Spondylosis without myelopathy or radiculopathy, lumbar region; S22.069D Unspecified fracture of T7-T8 vertebra, subsequent encounter for fracture with routine healing; M51.36 Other intervertebral disc degeneration, lumbar region; M81.0 Age-related osteoporosis without current pathological fracture; D64.9 Anemia, unspecified; F32.9 Major depressive disorder, single episode, unspecified; F41.9 Anxiety disorder, unspecified; G89.29 Other chronic pain; M46.44 Discitis, unspecified, thoracic region; Z79.01 Long term (current) use of anticoagulants; Z79.899 Other long term (current) drug therapy; Z79.84 Long term (current) use of oral hypoglycemic drugs; Z79.52 Long term (current) use of systemic steroids; Z88.5 Allergy status to narcotic agent; Z88.8 Allergy status to other drugs, medicaments and biological substances; Z90.49 Acquired absence of other specified parts of digestive tract; Z95.0 Presence of cardiac pacemaker; Z98.51 Tubal ligation status; Z98.42 Cataract extraction status, left eye; Z98.41 Cataract extraction status, right eye; Z96.1 Presence of intraocular lens; Z80.3 Family history of malignant neoplasm of breast
CPT/HCPCS: 36415; 36573; 71046; 74176; 80048; 80053; 81001; 82550; 82565; 83605; 83735; 83880; 84484; 85025; 85027; 85610; 85652; 85730; 86140; 87040; 87077; 87186; 87502; 93005; 93306; 94640; 94760; 96361; 96365; 96375; 99291

== ENCOUNTER 2019-10-22 11:28 | Inpatient (IN) | payer MEDICARE ==
[2019-10-22] MEDS ORDERED: IPRATROPIUM 0.5 MG/2.5 ML NEBU INHALATION STA (11:59)
[2019-10-22] MEDS ORDERED: ALBUTEROL NEBULIZED 2.5 MG/3 ML INHALATION STA (11:59)
[2019-10-22] MEDS ORDERED: DEXAMETHASONE SOD PHOSPHATE 10 MG/ML 1 ML VIAL IV STA (11:59)
[2019-10-22] MEDS ORDERED: SODIUM CHLORIDE 0.9% 500 ML 500 ML IV STA (12:16)
--- NOTE | 2019-10-22 12:19 | ED ---
General Adult HPI - General Chief complaint: Shortness of Breath Stated complaint: Sob Time Seen by Provider: 10/22/19 11:34 Source: patient Mode of arrival: wheelchair Limitations: physical limitation - History of Present Illness Initial comments: Dictation was produced using [employer] dictation software. please excuse any grammatical, word or spelling errors. Chief Complaint: 84-year-old female past medical history of asthma, atrial fi brillation presents with shortness of breath. History of Present Illness: Patient is a 4-year-old female she is currently being treated for bone and blood infection. She was at her follow-up appoint ment with infectious disease when she was told to come to the emergency department because she look like she was too short of breath. Patient has positive lung history. 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 She follows up with Dr. Malone for this. Patient states she's been short of breath for the last 2-3 days. She denies any pain complaints. Patient states she does have experience breathing symptoms like this on a regular basis. Denies any constitutional symptoms. She does have a mild productive cough that seems to be worse in usual. She has a PICC line in the right upper extremity that was placed recently and receives IV antibiotics. She denies knowing which bone it is infected. The ROS documented in this emergency department record has been reviewed and confirmed by me. Those systems with pertinent positive or negative responses have been documented in the HPI. All other systems are other negative and/or noncontributory. PHYSICAL EXAM: General Impression: Alert and oriented x3, respiratory distress, mild retractions, mildly tachypneic HEENT: Normocephalic atraumatic, extra-ocular movements intact, pupils equal and reactive to light bilaterally, dry mucous membranes Cardiovascular: Heart regular rate and rhythm, S1&S2 audible, no murmurs, rubs or gallops Chest: Diffuse wheezing Abdomen: Bowel sounds present, abdomen soft, non-tender, non-distended, no organomegaly Musculoskeletal: Pulses present and equal in all extremities, no peripheral edema Motor: no focal deficits noted Neurological: CN II-XII grossly intact, no focal motor or sensory deficits noted Skin: Intact with no visualized rashes, PICC line placed to the right upper extremity, PICC line site clean dry intact without any surrounding erythema ED course: 84 y Old female presents with shortness of breath. As upon arrival shows saturation 93% on room air, rest vital signs within acceptable limits. At bedside patient is visibly dyspneic. She does have wheezing with auscultation to the lungs. She has a history of asthma. Return evaluation obtained. CBC grossly unremarkable. Patient does have mild leukocytosis at 10.8 likely secondary to stress. Coag panel is unremarkable. Metabolic panel is grossly unremarkable. Prematurity peptide elevated at 11,100. Chart review was performed patient has had an echocardiogram showing mild ventricular impairment. Patient's clinical presentation likely is from COPD however patient does have mild heart failure. Patient treated with steroids, breathing treatment. Patient also given some Lasix. Patient be admitted to [facility] call Dr. Stack. Patient reevaluated at bedside and reports improvement of breathing symptoms with reading treatment. Discussed patient case with Dr. armijo who is willing to accept patients care. We will place pulmonology on consult. EKG interpretation: Ventricular rate 70, paced rhythm, QRS 170, QTc 542. No AK prolongation, no QTC prolongation, no ST or T-wave changes noted. EKG compared to 09/26/2019 showing no changes. Overall, this EKG is unremarkable - Related Data Home Medications Medication Instructions Recorded Confirmed Apixaban [Eliquis] 5 mg PO BID@0800,17011/24/14 10/22/19 Glimepiride [Amaryl] 2 mg PO BID@0800,169906/07/15 10/22/19 Nadolol [Corgard] 40 mg PO DAILY@0800 05/20/16 10/22/19 Amiodarone [Cordarone] 100 mg PO DAILY@0800 11/27/17 10/22/19 Omeprazole 40 mg PO DAILY@0800 06/10/18 10/22/19 Verapamil [Isoptin] 80 mg PO BID@0800,169906/10/18 10/22/19 Fluticasone/Salmeterol [Advair 1 puff INHALATION RT-BID@0800,209906/03/19 10/22/19 500-50 Diskus] Acetaminophen [Tylenol 8 Hour] 650 mg PO BID@0800,2100 09/26/19 10/22/19 Cholecalciferol [Vitamin D3 (25 5,000 unit PO DAILY@169909/26/19 10/22/19 Mcg = 1000 Iu)] Cyanocobalamin (Vitamin B-12) 1,000 mcg PO DAILY@1700 09/26/19 10/22/19 [Vitamin B-12] Ferrous Gluconate 324 mg PO DAILY@1700 09/26/19 10/22/19 predniSONE 10 mg PO DAILY@0800 09/26/19 10/22/19 Bisacodyl [Dulcolax] 10 mg RECTAL DAILY PRN 10/22/19 10/22/19 Furosemide [Lasix] 40 mg PO DAILY@0800 10/22/19 10/22/19 Lactose-Reduced Food [Ensure Plus] 1 can PO BID@0800,1700 10/22/19 10/22/19 Magnesium Hydroxide [Milk of 7,200 mg PO DAILY PRN 10/22/19 10/22/19 Magnesia Concentrate] Melatonin 1 mg PO HS@2100 10/22/19 10/22/19 Na Phos,M-B/Na Phos,Di-Ba [Fleet 1 dose RECTAL DAILY PRN 10/22/19 10/22/19 Adult] Potassium Chloride 10 meq PO DAILY@169910/22/19 10/22/19 Sennosides-Docusate Sodium 1 tab PO DAILY@0800 10/22/19 10/22/19 [Senokot-S] Previous Rx's Medication Instructions Recorded Ampicillin Sodium 2,000 mg IVPB Q6HR #168 vial 10/02/19 HYDROcodone/APAP 5-325MG [[place] 1 tab PO Q6H PRN #12 tab 10/02/19 5-325] Ipratropium-Albuterol Nebulize 3 ml INHALATION RT-QID ampul.neb 10/02/19 [Duoneb 0.5 mg-3 mg/3 ml Soln] Allergies Allergy/AdvReac Type Severity Reaction Status Date / Time diltiazem Allergy Itching Verified 10/22/19 13:06 morphine AdvReac Confusion Verified 10/22/19 13:06 Review of Systems ROS Statement: Those systems with pertinent positive or pertinent negative responses have been documented in the HPI. ROS Other: All systems not noted in ROS Statement are negative. Past Medical History Past Medical History: Atrial Fibrillation, Asthma, Chest Pain / Angina, Heart Failure, COPD, Diabetes Mellitus, GERD/Reflux, Hyperlipidemia, Hypertension, Myocardial Infarction ([place]), Osteoarthritis (OA), Pneumonia Additional Past Medical History / Comment(s): Pt admitted to [facility] on 09/04/19 fall with compression fracture T8-chronic back pain since, acute kidney injury and acute pancreatitis. Other hx; Afib RVR, NIDDM type II, neuropathy bilateral feet, arthritis multiple joints, osteoporosis, chronic anemia, falls, 2013 shingelles Last Myocardial Infarction Date:: 07/16/11 History of Any Multi-Drug Resistant Organisms: None Reported Past Surgical History: Appendectomy, Breast Surgery, Heart Catheterization, Pacemaker, Tubal Ligation Additional Past Surgical History / Comment(s): 02/2011 cardiac cath-normal, benign L breast lumpectomy, bronchoscopy, EGD/colonoscopy, bilateral cataract removals, 2010 VATS L lung d/t fibrotic lung changes. Past Anesthesia/Blood Transfusion Reactions: No Reported Reaction Additional Past Anesthesia/Blood Transfusion Reaction / Comment(s): Pt has received blood in past without reaction Type of Cardiac Device: Permanent Pacemaker Device Placement Date:: NOVEMBER 28 2017 Past Psychological History: Anxiety, Depression Smoking Status: Never smoker Past Alcohol Use History: None Reported Past Drug Use History: None Reported - Past Family History Sister(s) Family Medical History: Cancer Additional Family Medical History / Comment(s): breast CA Mother History Unknown: Yes Family Medical History: No Reported History Additional Family Medical History / Comment(s): from car accident no other hx known Father History Unknown: Yes Family Medical History: No Reported History Additional Family Medical History / Comment(s): committed suicide Daughter(s) Family Medical History: Cancer Additional Family Medical History / Comment(s): breast CA General Exam Limitations: physical limitation Course Vital Signs 10/22/19 10/22/19 10/22/19 11:33 12:38 12:50 Temperature 97.9 F Pulse Rate 71 69 70 Respiratory 21 Rate Blood Pressure 112/68 O2 Sat by Pulse 93 L Oximetry 10/22/19 13:57 Temperature 98.1 F Pulse Rate 69 Respiratory 18 Rate Blood Pressure 139/76 O2 Sat by Pulse 100 Oximetry Medical Decision Making - Lab Data Result diagrams: 10/22/19 13:15 10/22/19 13:15 Lab Results 10/22/19 10/22/19 10/22/19 Range/Units 13:15 13:15 13:15 WBC 10.8 H (3.8-10.6) k/uL RBC 4.03 (3.80-5.40) m/uL Hgb 10.3 L (11.4-16.0) gm/dL Hct 35.2 (34.0-46.0) % MCV 87.3 (80.0-100.0) fL MCH 25.6 (25.0-35.0) pg MCHC 29.4 L (31.0-37.0) g/dL RDW 19.8 H (11.5-15.5) % Plt Count 344 (150-450) k/uL Neutrophils % 87 % Lymphocytes % 6 % Monocytes % 6 % Eosinophils % 0 % Basophils % 1 % Neutrophils # 9.4 H (1.3-7.7) k/uL Lymphocytes # 0.6 L (1.0-4.8) k/uL Monocytes # 0.6 (0-1.0) k/uL Eosinophils # 0.0 (0-0.7) k/uL Basophils # 0.1 (0-0.2) k/uL Hypochromasia Marked Poikilocytosis Slight Anisocytosis Slight PT (9.0-12.0) sec INR (<1.2) APTT (22.0-30.0) sec Sodium 136 L (137-145) mmol/L Potassium 4.8 (3.5-5.1) mmol/L Chloride 99 (98-107) mmol/L Carbon Dioxide 28 (22-30) mmol/L Anion Gap 9 mmol/L BUN 26 H (7-17) mg/dL Creatinine 0.92 (0.52-1.04) mg/dL Est GFR (CKD-EPI)AfAm 66 (>60 ml/min/1.73 sqM) Est GFR (CKD-EPI)NonAf 58 (>60 ml/min/1.73 sqM) Glucose 195 H (74-99) mg/dL Plasma Lactic Acid Ricardo 1.5 (0.7-2.0) mmol/L Calcium 9.0 (8.4-10.2) mg/dL Magnesium 2.2 (1.6-2.3) mg/dL Total Bilirubin 0.6 (0.2-1.3) mg/dL AST 27 (14-36) U/L ALT 17 (4-34) U/L Alkaline Phosphatase 100 (38-126) U/L NT-Pro-B Natriuret Pep pg/mL Total Protein 6.7 (6.3-8.2) g/dL Albumin 3.9 (3.5-5.0) g/dL 10/22/19 10/22/19 Range/Units 13:15 13:15 WBC (3.8-10.6) k/uL RBC (3.80-5.40) m/uL Hgb (11.4-16.0) gm/dL Hct (34.0-46.0) % MCV (80.0-100.0) fL MCH (25.0-35.0) pg MCHC (31.0-37.0) g/dL RDW (11.5-15.5) % Plt Count (150-450) k/uL Neutrophils % % Lymphocytes % % Monocytes % % Eosinophils % % Basophils % % Neutrophils # (1.3-7.7) k/uL Lymphocytes # (1.0-4.8) k/uL Monocytes # (0-1.0) k/uL Eosinophils # (0-0.7) k/uL Basophils # (0-0.2) k/uL Hypochromasia Poikilocytosis Anisocytosis PT 11.4 (9.0-12.0) sec INR 1.1 (<1.2) APTT 24.8 (22.0-30.0) sec Sodium (137-145) mmol/L Potassium (3.5-5.1) mmol/L Chloride (98-107) mmol/L Carbon Dioxide (22-30) mmol/L Anion Gap mmol/L BUN (7-17) mg/dL Creatinine (0.52-1.04) mg/dL Est GFR (CKD-EPI)AfAm (>60 ml/min/1.73 sqM) Est GFR (CKD-EPI)NonAf (>60 ml/min/1.73 sqM) Glucose (74-99) mg/dL Plasma Lactic Acid Ricardo (0.7-2.0) mmol/L Calcium (8.4-10.2) mg/dL Magnesium (1.6-2.3) mg/dL Total Bilirubin (0.2-1.3) mg/dL AST (14-36) U/L ALT (4-34) U/L Alkaline Phosphatase (38-126) U/L NT-Pro-B Natriuret Pep 65774 pg/mL Total Protein (6.3-8.2) g/dL Albumin (3.5-5.0) g/dL Disposition Clinical Impression: Dyspnea Disposition: ADMITTED IP TO THIS HOSP Condition: Fair Referrals: Royal Farias MD [Primary Care Provider] - 1-2 days Decision Time: 14:25
--- NOTE | 2019-10-22 12:42 | XR ---
EXAMINATION TYPE: XR chest 2V DATE OF EXAM: 10/22/2019 COMPARISON: 09/27/19 HISTORY: Shortness of breath TECHNIQUE: Frontal and lateral views of the chest are obtained. FINDINGS: Scattered senescent parenchymal changes noted. Hyperinflation compatible with COPD. No evidence for infiltrate. No evidence for atelectasis. Heart size is stable. Mediastinal structures are stable and grossly unremarkable. No evidence for hilar prominence. Degenerative changes dorsal spine. IMPRESSION: 1. No evidence for acute pulmonary disease.
[2019-10-22 13:39] LABS: Anisocytosis Slight; Basophils # (A) 0.1 k/uL (0-0.2); Basophils % (A) 1 %; Eosinophils % (A) 0 %; HCT 35.2 % (34.0-46.0); HGB 10.3 gm/dL (11.4-16.0); Hypochromasia Marked; Lymphocytes # (A) 0.6 k/uL (1.0-4.8); Lymphocytes % (A) 6 %; MCH 25.6 pg (25.0-35.0); MCHC 29.4 g/dL (31.0-37.0); MCV 87.3 fL (80.0-100.0); Mean Platelet Volume 8.6; Monocytes # (A) 0.6 k/uL (0-1.0); Monocytes % (A) 6 %; Neutrophils # (A) 9.4 k/uL (1.3-7.7); Neutrophils % (A) 87 %; Platelet Count 344 k/uL (150-450); Poikilocytosis Slight; RBC 4.03 m/uL (3.80-5.40); RDW 19.8 % (11.5-15.5); WBC 10.8 k/uL (3.8-10.6)
[2019-10-22 13:47] LABS: INR 1.1 (<1.2); Partial Thromboplastin Time 24.8 sec (22.0-30.0); Prothrombin Time 11.4 sec (9.0-12.0)
[2019-10-22 13:54] LABS: Albumin 3.9 g/dL (3.5-5.0); Magnesium 2.2 mg/dL (1.6-2.3); Potassium 4.8 mmol/L (3.5-5.1); Total Bilirubin 0.6 mg/dL (0.2-1.3); Total Protein 6.7 g/dL (6.3-8.2)
[2019-10-22] MEDS ORDERED: FUROSEMIDE 10 MG/ML 4 ML VIAL IV STA (14:20)
[2019-10-22] MEDS ORDERED: IPRATROPIUM-ALBUTEROL 3 ML NEB INHALATION PRN (14:21)
[2019-10-22] MEDS ORDERED: ALPRAZolam 0.25 MG TAB PO STA (17:11)
[2019-10-22] MEDS: APIXABAN 5 MG TAB PO SCH (17:54)
[2019-10-22] MEDS ORDERED: AMPICILLIN 250 MG VIAL IVPB SCH (18:00)
[2019-10-22] MEDS: FUROSEMIDE 10 MG/ML 4 ML VIAL IV SCH (20:09)
[2019-10-22] MEDS: VERAPAMIL 80 MG TAB PO SCH (20:09)
[2019-10-22] MEDS: IPRATROPIUM-ALBUTEROL 3 ML NEB INHALATION SCH (20:22)
[2019-10-22] MEDS: AMPICILLIN 2,000 MG in SODIUM CHLORIDE 0.9% 100 ML IVPB SCH (21:20)
--- NOTE | 2019-10-22 22:30 | HP ---
HISTORY AND PHYSICAL CHIEF COMPLAINT: "Swelling in legs." HISTORY OF PRESENT ILLNESS: This is the first known admission for this 84-year-old white female who came in with shortness of breath. It was felt that this may be a combination of congestive heart failure and COPD. However, she has never been a smoker. There is also apparently a history of osteomyelitis of the spine. The patient is lethargic and not cooperative in giving any other significant historical details at this time. She does seem to be congested, with shortness of breath, and she has audible rhonchi. Review of systems is unobtainable. Past medical history, family history, and personal and social histories reveal that she is ALLERGIC TO DILTIAZEM AND MORPHINE. She is on numerous medications, including Tylenol, dulcolax, vitamin D3, vitamin B12, ferrous gluconate, Advair Diskus, Lasix, glimepiride, Vicodin 5, updrafts with DuoNeb, Ensure Plus, magnesium oxide, melatonin, Corgard, omeprazole, potassium chloride, prednisone, senokot, amiodarone, apixaban, verapamil and ampicillin. She has never smoked or had asthma. PHYSICAL EXAMINATION: Blood pressure 139/76 with a pulse of 82, respirations of 38, and she is afebrile. In general she appeared to be weak, lethargic and congested with audible rhonchi and wheezing. Head, ears, eyes, nose, mouth and throat are normal. The chest demonstrates rhonchi and rales bilaterally. Cardiac exam demonstrates what sounds like atrial fibrillation. Abdomen is soft and nontender without masses. Extremities are normal but somewhat cool. There is slight edema. Neurologically she seems to be intact. ADMITTING DIAGNOSES: 1. Congestive heart failure. 2. Type 2 koc-nazrfsu-wddwulpga diabetes mellitus. 3. Anemia. 4. Lethargy. 5. History of osteomyelitis of the spine. PLAN: 1. Bed rest. 2. IV fluids. 3. Diuresis. 4. Echocardiogram. 5. Cardiology consult. MMODL / IJN: [id number] /
[2019-10-23] MEDS: AMPICILLIN 2,000 MG in SODIUM CHLORIDE 0.9% 100 ML IVPB SCH ×5 (00:55→23:19)
[2019-10-23] MEDS ORDERED: NON FORMULARY DRUG (Lactose-Reduced Food [Ensure Plus] 1 CAN) PO SCH (08:00)
[2019-10-23] MEDS: IPRATROPIUM-ALBUTEROL 3 ML NEB INHALATION SCH ×4 (08:34→20:29)
[2019-10-23] MEDS: NADOLOL 20 MG TAB PO SCH (09:19)
[2019-10-23] MEDS: FUROSEMIDE 10 MG/ML 4 ML VIAL IV SCH ×2 (09:19→16:06)
[2019-10-23] MEDS: APIXABAN 5 MG TAB PO SCH ×2 (09:20→16:06)
[2019-10-23] MEDS: VERAPAMIL 80 MG TAB PO SCH ×2 (09:20→16:06)
[2019-10-23] MEDS: AMIODARONE 100 MG TAB PO SCH (09:20)
[2019-10-23] MEDS: PANTOPRAZOLE 40 MG TABLET PO SCH (09:20)
[2019-10-23] MEDS: SENNOSIDES-DOCUSATE SODIUM 1 EACH TAB PO SCH (09:20)
[2019-10-23] MEDS: predniSONE 10 MG TAB PO SCH (09:20)
--- NOTE | 2019-10-23 11:36 | ECHOF ---
Referral Reason:CHF MEASUREMENTS -------- HEIGHT: 157.5 cm WEIGHT: 63.5 kg BP: RVIDd: 3.3 cm (< 3.3) IVSd: 1.9 cm (0.6 - 1.1) LVIDd: 3.6 cm (3.9 - 5.3) LVPWd: 2.3 cm (0.6 - 1.1) IVSs: 2.3 cm LVIDs: 1.8 cm LVPWs: 2.0 cm LAESV Index (A-L): 75.22 ml/m Ao Diam: 2.8 cm (2.0 - 3.7) AV Cusp: 1.9 cm (1.5 - 2.6) LA Diam: 4.8 cm (2.7 - 3.8) MV EXCURSION: 16.381 mm (> 18.000) MV EF SLOPE: 82 mm/s (70 - 150) EPSS: 0.7 cm MV E Cosme: 1.18 m/s MV DecT: 198 ms MV A Cosme: 0.45 m/s MV E/A Ratio: 2.60 AR PHT: 191 ms RAP: 5.00 mmHg RVSP: 56.71 mmHg TAPSE: 16.31 mm FINDINGS -------- Sinus rhythm. This was a technically good study. The left ventricular size is normal. There is severe concentric left ventricular hypertrophy. Ove rall left ventricular systolic function is normal with, an EF between 55 - 60 %. Increased LAP Grad e 2 Diastolic Dysfunction. The right ventricle is normal in size. LA is severely dilated >40 ml/m2 RA appears enlarged. Aortic valve is trileaflet and is mildly thickened. Trace to mild aortic regurgitation. The mitral valve is normal. The mitral valve leaflets are mildly thickened. Mild mitral annular c alcification present. Severe mitral regurgitation is present. The tricuspid valve appears structurally normal. Severe tricuspid regurgitation present. There is moderate pulmonary hypertension. The right ventricular systolic pressure, as measured by Doppler, is 56.71mmHg. There is no pulmonic regurgitation present. The aortic root size is normal. Normal inferior vena cava with normal inspiratory collapse consistent with estimated right atrial pre ssure of 5 mmHg. There is no pericardial effusion. CONCLUSIONS -------- 1. Sinus rhythm. 2. This was a technically good study. 3. The left ventricular size is normal. 4. There is severe concentric left ventricular hypertrophy. 5. Overall left ventricular systolic function is normal with, an EF between 55 - 60 %. 6. Increased LAP Grade 2 Diastolic Dysfunction. 7. The right ventricle is normal in size. 8. LA is severely dilated >40 ml/m2 9. RA appears enlarged. 10. Aortic valve is trileaflet and is mildly thickened. 11. Trace to mild aortic regurgitation. 12. The mitral valve is normal. 13. The mitral valve leaflets are mildly thickened. 14. Mild mitral annular calcification present. 15. Severe mitral regurgitation is present. 16. The tricuspid valve appears structurally normal. 17. Severe tricuspid regurgitation present. 18. There is moderate pulmonary hypertension. 19. The right ventricular systolic pressure, as measured by Doppler, is 56.71mmHg. 20. There is no pulmonic regurgitation present. 21. The aortic root size is normal. 22. Normal inferior vena cava with normal inspiratory collapse consistent with estimated right atrial pressure of 5 mmHg. 23. There is no pericardial effusion. [employer] SALES LEADER: Lara Yoon RDCS
[2019-10-23 13:51] LABS: Albumin 4.1 g/dL (3.5-5.0); Calcium 9.2 mg/dL (8.4-10.2); Potassium 4.7 mmol/L (3.5-5.1); Total Bilirubin 0.7 mg/dL (0.2-1.3)
[2019-10-23 14:19] LABS: Anisocytosis Slight; Basophils # (A) 0.2 k/uL (0-0.2); Basophils % (A) 2 %; Eosinophils % (A) 0 %; HCT 36.6 % (34.0-46.0); Hypochromasia Marked; Lymphocytes # (A) 0.6 k/uL (1.0-4.8); Lymphocytes % (A) 5 %; MCH 26.2 pg (25.0-35.0); MCHC 30.1 g/dL (31.0-37.0); Monocytes # (A) 0.9 k/uL (0-1.0); Monocytes % (A) 7 %; Neutrophils # (A) 11.1 k/uL (1.3-7.7); Neutrophils % (A) 86 %; Platelet Count 340 k/uL (150-450); Poikilocytosis Slight; RBC 4.21 m/uL (3.80-5.40); RDW 19.5 % (11.5-15.5)
[2019-10-23 14:26] LABS: Large Platelets Present
[2019-10-23] MEDS: POTASSIUM CHLORIDE ER 10 MEQ TAB.ER.PRT PO SCH (16:06)
--- NOTE | 2019-10-23 16:31 | P.CNPUL ---
History of Present Illness Consult date: 10/23/19 Reason for consult: dyspnea Chief complaint: Shortness of breath History of present illness: 84-year-old white female patient with past medical history of mild intermittent bronchial asthma, she follows with Dr. Malone in the pulmonary clinic, chronic, chronic congestive heart failure, diabetes mellitus, GERD/reflux, hypertension, hyperlipidemia, previous episode of myocardial infarction, osteoarthritis, who came into the hospital on October 22, 2019 with complaints of shortness of breath. Patient is currently at [facility] as she is receiving IV infusions of Ampicillin for bacteremia and osteomyelitis. She was at the infectious disease doctors office yesterday where she was noted to be steven y short of breath and has patient was sent in to the emergency department for evaluation. Patient states she had been short of breath for last few days. Apparently She also had increased peripheral edema. No pain complaints, no weakness, no fever or chills. Does have a mild productive cough. Blood cultures from last admission showed Enterococcus faecalis, he was also suspicious suspicion for T8 discitis, MRI of the spine could not be completed related to presence of a permanent pacemaker. Patient was prescribed 6 weeks of ampicillin and she has been getting infusions through the right before meals PICC line. Chest x-ray on admission showed no evidence for acute pulmonary process. Lab work showed white blood cell count of 10.8, hemoglobin 10.3, electrolytes and renal profile were unremarkable, with B1 of 26 and creatinine of 0.92. Plasma lactic acid was normal at 1.5, LFTs within normal limits, proBNP was 11,001 100, troponin was less than 0.012, influenza screen was negative. Patient has been afebrile, she is on 2 L of oxygen with a pulse ox of 97%. Today was seen in consultation, patient states that she is breathing easier she has been started on IV diuretics, lower extremity edema is significantly improved, there have been no fever or chills, physical exam reveals diffuse crackles and lateral bases. Still has residual 1+ pitting edema in lower extremities. No fever or chills, her ampicillin infusions have been resumed, she is on breathing treatments and daily dose of prednisone 10 mg. Review of Systems All systems: negative Constitutional: Denies chills, Denies fever Eyes: denies blurred vision, denies pain Ears, nose, mouth and throat: Denies headache, Denies sore throat Cardiovascular: Reports leg edema, Reports shortness of breath, Denies chest pain Respiratory: Reports dyspnea, Denies cough Gastrointestinal: Denies abdominal pain, Denies diarrhea, Denies nausea, Denies vomiting Genitourinary: Denies dysuria, Denies hematuria Musculoskeletal: Denies myalgias Integumentary: Denies pruritus, Denies rash Neurological: Denies numbness, Denies weakness Psychiatric: Denies anxiety, Denies depression Endocrine: Denies fatigue, Denies weight change Past Medical History Past Medical History: Atrial Fibrillation, Asthma, Chest Pain / Angina, Heart Failure, COPD, Diabetes Mellitus, GERD/Reflux, Hyperlipidemia, Hypertension, Myocardial Infarction (OK), Osteoarthritis (OA), Pneumonia Additional Past Medical History / Comment(s): Pt admitted to [facility] on 09/04/19 fall with compression fracture T8-chronic back pain since, acute kidney injury and acute pancreatitis. Other hx; Afib RVR, NIDDM type II, neuropathy bilateral feet, arthritis multiple joints, osteoporosis, chronic anemia, falls, 2012 shingelles Last Myocardial Infarction Date:: 07/16/11 History of Any Multi-Drug Resistant Organisms: None Reported Past Surgical History: Appendectomy, Breast Surgery, Heart Catheterization, Pacemaker, Tubal Ligation Additional Past Surgical History / Comment(s): 02/2011 cardiac cath-normal, benign L breast lumpectomy, bronchoscopy, EGD/colonoscopy, bilateral cataract removals, 2010 VATS L lung d/t fibrotic lung changes. Past Anesthesia/Blood Transfusion Reactions: No Reported Reaction Additional Past Anesthesia/Blood Transfusion Reaction / Comment(s): Pt has received blood in past without reaction Type of Cardiac Device: Permanent Pacemaker Device Placement Date:: NOVEMBER 28 2017 Past Psychological History: Anxiety, Depression Additional Psychological History / Comment(s): [facility] She resides alone in an apartment. [facility]. She uses a walker to ambulate. She has a nebulizer and glucometer. She no longer drives. Her family takes her to [employer]. Smoking Status: Never smoker Past Alcohol Use History: None Reported Past Drug Use History: None Reported - Past Family History Sister(s) Family Medical History: Cancer Additional Family Medical History / Comment(s): breast CA Mother History Unknown: Yes Family Medical History: No Reported History Additional Family Medical History / Comment(s): from car accident no other hx known Father History Unknown: Yes Family Medical History: No Reported History Additional Family Medical History / Comment(s): committed suicide Daughter(s) Family Medical History: Cancer Additional Family Medical History / Comment(s): breast CA Medications and Allergies Home Medications Medication Instructions Recorded Confirmed Type Apixaban [Eliquis] 5 mg PO BID@0800,1700 11/24/14 10/22/19 History Glimepiride [Amaryl] 2 mg PO BID@0800,169906/07/15 10/22/19 History Nadolol [Corgard] 40 mg PO DAILY@0800 05/20/16 10/22/19 History Amiodarone [Cordarone] 100 mg PO DAILY@79911/27/17 10/22/19 History Omeprazole 40 mg PO DAILY@79906/10/18 10/22/19 History Verapamil [Isoptin] 80 mg PO BID@0800,169906/10/18 10/22/19 History Fluticasone/Salmeterol [Advair 1 puff INHALATION RT-BID@0800,209906/03/19 10/22/19 History 500-50 Diskus] Acetaminophen [Tylenol 8 Hour] 650 mg PO BID@0800,209909/26/19 10/22/19 History Cholecalciferol [Vitamin D3 (25 5,000 unit PO DAILY@169909/26/19 10/22/19 History Mcg = 1000 Iu)] Cyanocobalamin (Vitamin B-12) 1,000 mcg PO DAILY@169909/26/19 10/22/19 History [Vitamin B-12] Ferrous Gluconate 324 mg PO DAILY@169909/26/19 10/22/19 History predniSONE 10 mg PO DAILY@0800 09/26/19 10/22/19 History Ampicillin Sodium 2,000 mg IVPB Q6HR #168 vial 10/02/19 10/22/19 Rx HYDROcodone/APAP 5-325MG [Metz 1 tab PO Q6H PRN #12 tab 10/02/19 10/22/19 Rx 5-325] Ipratropium-Albuterol Nebulize 3 ml INHALATION RT-QID ampul.neb 10/02/19 10/22/19 Rx [Duoneb 0.5 mg-3 mg/3 ml Soln] Bisacodyl [Dulcolax] 10 mg RECTAL DAILY PRN 10/22/19 10/22/19 History Furosemide [Lasix] 40 mg PO DAILY@0800 10/22/19 10/22/19 History Lactose-Reduced Food [Ensure Plus] 1 can PO BID@0800,1700 10/22/19 10/22/19 History Magnesium Hydroxide [Milk of 7,200 mg PO DAILY PRN 10/22/19 10/22/19 History Magnesia Concentrate] Melatonin 1 mg PO HS@2100 10/22/19 10/22/19 History Na Phos,M-B/Na Phos,Di-Ba [Fleet 1 dose RECTAL DAILY PRN 10/22/19 10/22/19 History Adult] Potassium Chloride 10 meq PO DAILY@1700 10/22/19 10/22/19 History Sennosides-Docusate Sodium 1 tab PO DAILY@0800 10/22/19 10/22/19 History [Senokot-S] Allergies Allergy/AdvReac Type Severity Reaction Status Date / Time diltiazem Allergy Itching Verified 10/22/19 13:06 morphine AdvReac Confusion Verified 10/22/19 13:06 Physical Exam Vitals: Vital Signs Temp Pulse Pulse Resp BP Pulse Ox 10/23/19 12:00 70 18 10/23/19 11:06 98.2 F 70 18 106/76 97 10/23/19 10:58 76 10/23/19 10:46 74 10/23/19 08:41 76 10/23/19 08:34 77 10/23/19 08:00 98.3 F 81 18 138/75 96 10/23/19 04:00 98 F 70 20 136/85 93 L 10/23/19 00:00 98.1 F 76 20 142/80 93 L 10/22/19 20:31 74 10/22/19 20:22 72 10/22/19 20:00 98.4 F 81 20 138/91 94 L Intake and Output 10/23/19 10/23/19 10/23/19 06:59 14:59 22:59 Intake Total 220 Output Total 800 Balance -580 Intake: Intake, IV Titration 100 Amount Ampicillin 2,000 mg In 100 Sodium Chloride 0.9% 100 ml @ 200 mls/hr IVPB Q6HR [facility] Rx#:[id number] Oral 120 Output: Urine 800 Other: Voiding Method Toilet Toilet # Voids 2 1 # Bowel Movements 1 Weight 63.503 kg GENERAL EXAM: Alert, pleasant, 84-year-old white female, currently on 2 L of oxygen with a pulse ox of 97%, comfortable in no apparent distress. HEAD: Normocephalic/atraumatic. EYES: Normal reaction of pupils, equal size. Conjunctiva pink, sclera white. NOSE: Clear with pink turbinates. THROAT: No erythema or exudates. NECK: No masses, no JVD, no thyroid enlargement, no adenopathy. CHEST: No chest wall deformity. Symmetrical expansion. LUNGS: Equal air entry with image sounds, bilateral crackles CVS: Regular rate and rhythm, normal S1 and S2, no gallops, no murmurs, no rubs ABDOMEN: Soft, nontender. No hepatosplenomegaly, normal bowel sounds, no guarding or rigidity. EXTREMITIES: No clubbing, 1+ pitting lower extremity edema, no cyanosis, 2+ pulses and upper and lower extremities. MUSCULOSKELETAL: Muscle strength and tone normal. SPINE: Kyphosis of the spine SKIN: No rashes CENTRAL NERVOUS SYSTEM: Alert and oriented -3. No focal deficits, tone is normal in all 4 extremities. PSYCHIATRIC: Alert and oriented -3. Appropriate affect. Intact judgment and insight. Results - Laboratory Findings CBC and BMP: 10/23/19 13:14 10/23/19 13:14 PT/INR, D-dimer PT 11.4 sec (9.0-12.0) 10/22/19 13:15 INR 1.1 (<1.2) 10/22/19 13:15 Abnormal lab findings: Abnormal Labs 10/22/19 10/22/19 10/23/19 13:15 13:15 13:14 WBC 10.8 H 13.0 H Hgb 10.3 L 11.0 L MCHC 29.4 L 30.1 L RDW 19.8 H 19.5 H Neutrophils # 9.4 H 11.1 H Lymphocytes # 0.6 L 0.6 L Sodium 136 L Chloride Carbon Dioxide BUN 26 H Glucose 195 H 10/23/19 13:14 WBC Hgb MCHC RDW Neutrophils # Lymphocytes # Sodium Chloride 97 L Carbon Dioxide 31 H BUN 27 H Glucose 238 H - Diagnostic Findings Chest x-ray: report reviewed Additional studies: EKG reviewed Assessment and Plan Plan: Assessment: #1. Dyspnea related to acute exacerbation of chronic congestive heart failure with preserved left ventricular systolic function #2. Recent hospitalization for Enterococcus faecalis bacteremia and possibility of T8 discitis, [facility] with ampicillin infusions for 6 weeks #3. Chronic A. fib on Eliquis, post permanent pacemaker implantation #4. Diabetes mellitus type 2 #5. GERD/reflux #6. Hypertension #7. Hyperlipidemia #8. Osteoarthritis #9. Osteoporosis #10. Chronic anemia #11. Anxiety depression #12. Mild intermittent chronic bronchial asthma Plan: Continue current treatment, patient symptoms likely related to acute exacerbation of CHF, patient is on diuretics, she is diuresing and she is breathing easier, her asthma seems to be stable, continue her maintenance inhalers and nebulized treatments, he is covered with antibiotics, no fever or chills, we'll continue to follow I performed a history & physical examination of the patient and discussed their management with my nurse practitioner, Tory Aquino. I reviewed the nurse practitioner's note and agree with the documented findings and plan of care. Lung sounds are positive for diffuse crackles. The findings and the impression was discussed with the patient. I attest to the documentation by the nurse practitioner. Time with Patient: Greater than 30
[2019-10-23] MEDS: INSULIN ASPART (NovoLOG) 100 UNIT/ML VIAL SQ SCH ×2 (17:09→20:28)
[2019-10-23 17:40] LABS: Glucose,Whole Blood 187 mg/dL (75-99)
[2019-10-23 20:11] LABS: Glucose,Whole Blood 231 mg/dL (75-99)
--- NOTE | 2019-10-23 20:20 | PN ---
PROGRESS NOTE CHIEF COMPLAINT: Acute congestive heart failure and pulmonary edema. HISTORY OF PRESENT ILLNESS: This lady has improved overnight. She has now coherent. She is still very short of breath and is very congested, but she is more awake and alert and communicative. She states she is breathing much better. She denies chest pain. PHYSICAL EXAMINATION: Chest demonstrates extensive rales still but breath sounds are slightly improved. Cardiac exam demonstrates atrial fibrillation with a rapid response and there is an S4. She has a grade 2-3/6 systolic murmur heard at the left sternal border. Abdomen is soft, nontender. Extremities are normal. IMPRESSION: 1. Acute congestive heart failure with pulmonary edema-improving. 2. Atrial fibrillation. 3. Cardiac murmur. PLAN: Probably move out of the emergency room to the telemetry bed today and await results of her echocardiogram and she will be seen by Cardiology. CAMPOS / ARNOLDO: [id number] /
--- NOTE | 2019-10-23 22:10 | CONS ---
CONSULTATION CHIEF COMPLAINT: Shortness of breath. This is an 84-year-old lady with history of chronic diastolic heart failure, apical hypertrophy, paroxysmal atrial fibrillation and COPD who comes to hospital complaining of shortness of breath and leg edema. She was apparently at the infectious disease doctor's office for evaluation, who took one look at her and told her that "you need to be in the hospital." Patient's symptoms were shortness of breath and leg edema. Patient has chronic shortness of breath related to COPD and CHF and also has had leg edema. I have known her from my outpatient practice for years now. At the time of my evaluation, she appears comfortable at rest, does not seem to be in respiratory distress. Her oxygen saturation is 97% on 2 L. PAST MEDICAL HISTORY: Significant for COPD, hypertension, atrial fibrillation, apical hypertrophy and valvular heart disease. HOME MEDICATIONS: Medications at home include [place], omeprazole, DuoNeb, Isoptin, Amaryl, Advair, Eliquis, Senokot, prednisone, K-Dur, Corgard, melatonin, Lasix, iron and amiodarone. ALLERGIES: DILTIAZEM AND MORPHINE. FAMILY HISTORY: Negative for premature coronary artery disease. SOCIAL HISTORY: Negative for current smoking, EtOH abuse or drug abuse. REVIEW OF SYSTEMS: HEENT is unremarkable. CARDIAC: As described above. RESPIRATORY: As described above. GI: Negative. GENITOURINARY: Negative. ALLERGY: Negative. IMMUNOLOGY: Negative. SKIN: Negative. MUSCULOSKELETAL: Significant for arthritis. PSYCHOSOCIAL: Negative. ENDOCRINE: Negative. DERMATOLOGY: Negative. CONSTITUTIONAL: Negative. ONCOLOGICAL: Negative. Rest of the system review is not relevant. PHYSICAL EXAMINATION: On exam, she is comfortable at rest. Heart rate is 78 beats per minute. Blood pressure is 106/76, respiratory rate is 18. There is no jugular venous distention. Chest examination reveals diminished air entry at the bases. Heart exam reveals first and second heart sounds. Systolic murmur at the apex and the left lower sternal border. Abdomen is soft. Examination of extremities reveals bilateral pitting edema. LABS: Labs show a hemoglobin of 11, potassium is 4.7, creatinine is 0.8. EKG shows paced rhythm. On chest x-ray there is no evidence of pulmonary disease. Her BNP was elevated at 11,100. Echocardiogram shows normal LV systolic function, severe mitral regurgitation, severe tricuspid regurgitation and pulmonary hypertension. ASSESSMENT: 1. Acute exacerbation of chronic diastolic heart failure. 2. Chronic obstructive pulmonary disease. 3. Mitral regurgitation. 4. Tricuspid regurgitation. 5. Permanent atrial fibrillation. 6. Sick sinus syndrome, status post permanent pacemaker. PLAN: The patient's underlying rhythm seems to be atrial fibrillation. She is on Eliquis, which I am going to continue. Continue the IV Lasix. Continue the Isoptin. I will consider stopping the amiodarone, as the patient's EKG suggests that she is in atrial fibrillation. MMODL / IJN: [id number] /
[2019-10-24 06:29] LABS: Glucose,Whole Blood 106 mg/dL (75-99)
[2019-10-24] MEDS: INSULIN ASPART (NovoLOG) 100 UNIT/ML VIAL SQ SCH ×4 (06:30→20:38)
[2019-10-24] MEDS: AMPICILLIN 2,000 MG in SODIUM CHLORIDE 0.9% 100 ML IVPB SCH ×3 (06:36→17:06)
[2019-10-24] MEDS: IPRATROPIUM-ALBUTEROL 3 ML NEB INHALATION SCH ×4 (09:08→20:22)
[2019-10-24] MEDS: FUROSEMIDE 10 MG/ML 4 ML VIAL IV SCH ×2 (09:45→20:06)
[2019-10-24] MEDS: APIXABAN 5 MG TAB PO SCH ×2 (09:47→17:02)
[2019-10-24] MEDS: VERAPAMIL 80 MG TAB PO SCH ×2 (09:47→17:02)
[2019-10-24] MEDS: AMIODARONE 100 MG TAB PO SCH (09:47)
[2019-10-24] MEDS: predniSONE 10 MG TAB PO SCH (09:47)
[2019-10-24] MEDS: SENNOSIDES-DOCUSATE SODIUM 1 EACH TAB PO SCH (09:47)
[2019-10-24] MEDS: NADOLOL 20 MG TAB PO SCH (09:47)
[2019-10-24] MEDS: PANTOPRAZOLE 40 MG TABLET PO SCH (09:47)
[2019-10-24 11:22] VITALS: BMI 25.6
[2019-10-24 11:48] LABS: Glucose,Whole Blood 141 mg/dL (75-99)
--- NOTE | 2019-10-24 13:56 | P.PN ---
Subjective Progress Note Date: 10/24/19 Is is an 84-year-old female with history of chronic diastolic congestive heart failure, paroxysmal atrial fibrillation who presented to the hospital with symptoms of shortness of breath and bilateral lower extremity edema. She was initiated on IV Lasix yesterday. Overall the patient has been diuresing well through the night last night. Pressure 115/60 with a heart rate in the 70s, 99% on 2 L of oxygen. Blood cell count 13.0, hemoglobin 11, platelet count 340. Sodium 137, potassium 4.7, BUN 27, creatinine 0.8. Patient still has one to 2+ bilateral lower extremity edema but does state that she's feeling overall better than her presentation here. She continues to be on 40 mg of IV Lasix twice a day. Echocardiogram with Doppler study was performed which revealed an ejection fraction of 55-60%. Objective - Vital Signs Vital signs: Vital Signs Temp 97.6 F 10/24/19 08:00 Pulse 72 10/24/19 12:36 Resp 20 10/24/19 12:00 BP 115/64 10/24/19 12:00 Pulse Ox 99 10/24/19 12:00 Intake & Output 10/23/19 10/24/19 10/24/19 18:59 06:59 18:59 Intake Total 120 360 Output Total 1300 600 Balance 120 -1300 -240 Weight 63.6 kg 63.6 kg Intake: Oral 120 360 Output: Urine 1300 600 Other: Voiding Method Toilet Toilet # Voids 1 1 # Bowel Movements 1 0 - Exam HEAD: Normocephalic/atraumatic. EYES: Normal reaction of pupils, equal size. Conjunctiva pink, sclera white. NOSE: Clear with pink turbinates. THROAT: No erythema or exudates. NECK: No masses, no JVD, no thyroid enlargement, no adenopathy. CHEST: No chest wall deformity. Symmetrical expansion. LUNGS: Equal air entry with image sounds, bilateral crackles CVS: Regular rate and rhythm, normal S1 and S2, no gallops, no murmurs, no rubs ABDOMEN: Soft, nontender. No hepatosplenomegaly, normal bowel sounds, no guarding or rigidity. EXTREMITIES: No clubbing, 1+ pitting lower extremity edema, no cyanosis, 2+ pulses and upper and lower extremities. MUSCULOSKELETAL: Muscle strength and tone normal. SPINE: Kyphosis of the spine SKIN: No rashes CENTRAL NERVOUS SYSTEM: Alert and oriented -3. No focal deficits, tone is normal in all 4 extremities. PSYCHIATRIC: Alert and oriented -3. Appropriate affect. Intact judgment and insight. - Labs CBC & Chem 7: 10/23/19 13:14 10/23/19 13:14 Labs: Abnormal Lab Results - Last 24 Hours (Table) 10/23/19 10/23/19 10/23/19 Range/Units 13:14 17:39 20:09 WBC 13.0 H (3.8-10.6) k/uL Hgb 11.0 L (11.4-16.0) gm/dL MCHC 30.1 L (31.0-37.0) g/dL RDW 19.5 H (11.5-15.5) % Neutrophils # 11.1 H (1.3-7.7) k/uL Lymphocytes # 0.6 L (1.0-4.8) k/uL POC Glucose (mg/dL) 187 H 231 H (75-99) mg/dL 10/24/19 10/24/19 Range/Units 06:27 11:46 WBC (3.8-10.6) k/uL Hgb (11.4-16.0) gm/dL MCHC (31.0-37.0) g/dL RDW (11.5-15.5) % Neutrophils # (1.3-7.7) k/uL Lymphocytes # (1.0-4.8) k/uL POC Glucose (mg/dL) 106 H 141 H (75-99) mg/dL Microbiology - Last 24 Hours (Table) 10/23/19 00:02 Blood Culture - Preliminary Blood No Growth after 24 hours Assessment and Plan Plan: Assessment and plan #1. Dyspnea related to acute exacerbation of diastolic congestive heart failure acute on chronic #2. Recent hospitalization for Enterococcus faecalis bacteremia and possibility of T8 discitis, discharge to [facility] on 10/02/2019 with ampicillin infusions for 6 weeks #3. Chronic A. fib on Eliquis, post permanent pacemaker implantation #4. Diabetes mellitus type 2 #5. GERD/reflux #6. Hypertension #7. Hyperlipidemia #8. Osteoarthritis #9. Osteoporosis #10. Chronic anemia #11. Anxiety depression #12. Mild intermittent chronic bronchial asthma Plan Cardiology's perspective, we'll continue this patient on current dose of IV Lasix. Continue to monitor the intake and output along with daily weights and daily lytes BUN and creatinine. DNP note has been reviewed, I agree with a documented findings and plan of care. Patient was seen and examined.
--- NOTE | 2019-10-24 14:05 | PN ---
PROGRESS NOTE CHIEF COMPLAINT: Congestive heart failure. HISTORY OF PRESENT ILLNESS: This lady seems to be doing well. Breathing has improved. Her activity is increasing. Laboratory studies reveal that white count is 13,100 with a hemoglobin of 11. PHYSICAL EXAMINATION: Chest still demonstrates scattered rales and occasional rhonchi. Cardiac exam is unremarkable otherwise. Abdomen soft and nontender. Extremities are normal. IMPRESSION: 1. Congestive heart failure. 2. Leukocytosis. 3. Anemia. PLAN: Increase activity and continue with diuresis and she can probably go home in the next day or two. MMODL / IJN: [id number] /
--- NOTE | 2019-10-24 15:28 | P.PN ---
Subjective Progress Note Date: 10/24/19 Principal diagnosis: Shortness of breath 84-year-old white female patient with past medical history of mild intermittent bronchial asthma, she follows with Dr. Malone in the pulmonary clinic, chronic, chronic congestive heart failure, diabetes mellitus, GERD/reflux, hypertension, hyperlipidemia, previous episode of myocardial infarction, osteoarthritis, who came into the hospital on October 22, 2019 with complaints of shortness of breath. Patient is currently at [facility] as she is receiving IV infusions of Ampicillin for bacteremia and osteomyelitis. She was at the infectious disease doctors office yesterday where she was noted to be very short of breath and has patient was sent in to the emergency department for evaluation. Patient states she had been short of breath for last few days. Apparently She also had increased peripheral edema. No pain complaints, no weakness, no fever or chills. Does have a mild productive cough. Blood culture s from last admission showed Enterococcus faecalis, he was also suspicious suspicion for T8 discitis, MRI of the spine could not be completed related to presence of a permanent pacemaker. Patient was prescribed 6 weeks of ampicillin and she has been getting infusions through the right before meals PICC line. Chest x-ray on admission showed no evidence for acute pulmonary process. Lab work showed white blood cell count of 10.8, hemoglobin 10.3, electrolytes and renal profile were unremarkable, with B1 of 26 and creatinine of 0.92. Plasma lactic acid was normal at 1.5, LFTs within normal limits, proBNP was 11,001 100, troponin was less than 0.012, influenza screen was negative. Patient has been afebrile, she is on 2 L of oxygen with a pulse ox of 97%. Today was seen in consultation, patient states that she is breathing easier she has been started on IV diuretics, lower extremity edema is significantly improved, there have been no fever or chills, physical exam reveals diffuse crackles and lateral bases. Still has residual 1+ pitting edema in lower extremities. No fever or chills, her ampicillin infusions have been resumed, she is on breathing treatments and daily dose of prednisone 10 mg. On 10/24/2019 patient seen in follow-up on selective care unit, she continues to diurese, breathing easier, lower extremity edema is improving, is in -1180 mL fluid balance over the last 24 hours. No fever or chills, continues on ampicillin infusions for recent history of bacteremia and possibility of T8 discitis. Vital signs are stable, patient states she is feeling much better overall . In the chair, in no acute distress. Echocardiogram was completed showing EF between 55 and 60%, trace to mild aortic regurgitation, severe mitral regurgitation, severe tricuspid regurgitation and moderate pulmonary hypertension with right-sided pressures of 56.7 mmHg. Objective - Vital Signs Vital signs: Vital Signs Temp 97.6 F 10/24/19 08:00 Pulse 72 10/24/19 12:36 Resp 20 10/24/19 12:00 BP 115/64 10/24/19 12:00 Pulse Ox 99 10/24/19 12:00 Intake & Output 10/23/19 10/24/19 10/24/19 18:59 06:59 18:59 Intake Total 120 760 Output Total 1300 600 Balance 120 -1300 160 Weight 63.6 kg 63.6 kg Intake: IV 400 Ampicillin 2,000 mg In 400 Sodium Chloride 0.9% 100 ml @ 200 mls/hr IVPB Q6HR [facility] Rx#:[id number] Oral 120 360 Output: Urine 1300 600 Other: Voiding Method Toilet Toilet Toilet # Voids 1 1 # Bowel Movements 1 0 - Exam GENERAL EXAM: Alert, pleasant, 84-year-old white female, currently on 2 L of oxygen with a pulse ox of 99%, comfortable in no apparent distress. HEAD: Normocephalic/atraumatic. EYES: Normal reaction of pupils, equal size. Conjunctiva pink, sclera white. NOSE: Clear with pink turbinates. THROAT: No erythema or exudates. NECK: No masses, no JVD, no thyroid enlargement, no adenopathy. CHEST: No chest wall deformity. Symmetrical expansion. LUNGS: Equal air entry with image sounds, bilateral crackles CVS: Regular rate and rhythm, normal S1 and S2, no gallops, no murmurs, no rubs ABDOMEN: Soft, nontender. No hepatosplenomegaly, normal bowel sounds, no guarding or rigidity. EXTREMITIES: No clubbing, 1+ pitting lower extremity edema, no cyanosis, 2+ pulses and upper and lower extremities. MUSCULOSKELETAL: Muscle strength and tone normal. SPINE: Kyphosis of the spine SKIN: No rashes CENTRAL NERVOUS SYSTEM: Alert and oriented -3. No focal deficits, tone is normal in all 4 extremities. PSYCHIATRIC: Alert and oriented -3. Appropriate affect. Intact judgment and insight. - Labs CBC & Chem 7: 10/23/19 13:14 10/23/19 13:14 Labs: Abnormal Lab Results - Last 24 Hours (Table) 10/23/19 10/23/19 10/24/19 Range/Units 17:39 20:09 06:27 POC Glucose (mg/dL) 187 H 231 H 106 H (75-99) mg/dL 10/24/19 Range/Units 11:46 POC Glucose (mg/dL) 141 H (75-99) mg/dL Microbiology - Last 24 Hours (Table) 10/23/19 00:02 Blood Culture - Preliminary Blood No Growth after 24 hours Assessment and Plan Plan: Assessment: #1. Dyspnea related to acute exacerbation of chronic congestive heart failure with preserved left ventricular systolic function #2. Recent hospitalization for Enterococcus faecalis bacteremia and possibility of T8 discitis, discharge to [facility]CF on 10/02/2019 with ampicillin infusions for 6 weeks #3. Chronic A. fib on Eliquis, post permanent pacemaker implantation #4. Diabetes mellitus type 2 #5. GERD/reflux #6. Hypertension #7. Hyperlipidemia #8. Osteoarthritis #9. Osteoporosis #10. Chronic anemia #11. Anxiety depression #12. Mild intermittent chronic bronchial asthma Plan: Continue current medical treatment, continue diuretics, patient is breathing easier, fluid volume status is improving, no fever or chills, she continues on ampicillin for recent history of bacteremia and T8 discitis. Vital signs are stable, patient is on oral anticoagulation for history of chronic A. fib, no acute events overnight, continue breathing treatments. Anticipate discharge back to ECF possibly next 24-48 hours. I performed a history & physical examination of the patient and discussed their management with my nurse practitioner, Tory Aquino. I reviewed the nurse practitioner's note and agree with the documented findings and plan of care. Lung sounds are positive for diffuse crackles. The findings and the impression was discussed with the patient. I attest to the documentation by the nurse practitioner. Time with Patient: Less than 30
[2019-10-24 16:52] LABS: Glucose,Whole Blood 204 mg/dL (75-99)
[2019-10-24] MEDS: POTASSIUM CHLORIDE ER 10 MEQ TAB.ER.PRT PO SCH (17:02)
[2019-10-24 20:37] LABS: Glucose,Whole Blood 134 mg/dL (75-99)
[2019-10-25] MEDS: AMPICILLIN 2,000 MG in SODIUM CHLORIDE 0.9% 100 ML IVPB SCH ×5 (01:35→23:34)
[2019-10-25 06:58] LABS: Glucose,Whole Blood 85 mg/dL (75-99)
[2019-10-25] MEDS: INSULIN ASPART (NovoLOG) 100 UNIT/ML VIAL SQ SCH ×4 (07:08→20:26)
[2019-10-25] MEDS: SENNOSIDES-DOCUSATE SODIUM 1 EACH TAB PO SCH (07:55)
[2019-10-25] MEDS: VERAPAMIL 80 MG TAB PO SCH ×2 (07:55→17:26)
[2019-10-25] MEDS: NADOLOL 20 MG TAB PO SCH (07:55)
[2019-10-25] MEDS: AMIODARONE 100 MG TAB PO SCH (07:56)
[2019-10-25] MEDS: PANTOPRAZOLE 40 MG TABLET PO SCH (07:56)
[2019-10-25] MEDS: APIXABAN 5 MG TAB PO SCH ×2 (07:56→17:26)
[2019-10-25] MEDS: predniSONE 10 MG TAB PO SCH (07:56)
[2019-10-25] MEDS: IPRATROPIUM-ALBUTEROL 3 ML NEB INHALATION SCH ×4 (08:34→21:49)
[2019-10-25] MEDS: FUROSEMIDE 10 MG/ML 4 ML VIAL IV SCH ×2 (09:42→20:19)
[2019-10-25 10:15] LABS: Potassium 4.2 mmol/L (3.5-5.1)
[2019-10-25 11:53] LABS: Glucose,Whole Blood 278 mg/dL (75-99)
--- NOTE | 2019-10-25 12:25 | DS ---
DISCHARGE SUMMARY CHIEF COMPLAINT: Shortness of breath. HISTORY OF PRESENT ILLNESS AND PHYSICAL EXAM: Details of this lady's history and physical can be found in the initial workup. LABORATORY STUDIES: While she was in a hospital she had laboratory studies, details of which can be found in the laboratory section of her chart. COURSE IN THE HOSPITAL: After admission, she was placed on bedrest and started on intravenous fluids and diuresis. She was seen by Cardiology. Chest slowly cleared and she improved and doing well enough that it was felt that she could return to [facility]. FINAL DIAGNOSES: 1. Acute congestive heart failure, diastolic. 2. Chronic obstructive pulmonary disease. 3. Atrial fibrillation. 4. Sick sinus syndrome with pacemaker. OPERATIONS: None. CONSULTATIONS: Cardiology. She is improved. MMODL / IJN: [id number] /
--- NOTE | 2019-10-25 12:48 | P.PN ---
Subjective This is a pleasant 84-year-old female past medical history significant for chronic diastolic heart failure, paroxysmal atrial fibrillation, COPD, diabetes mellitus, hypertension, permanent pacemaker implantation and dyslipidemia. She follows in the office with Dr. Gibson. We are following her secondary to diastolic heart failure. She is currently on Lasix IV 40 mg twice a day. Otherwise maintained on amiodarone 100 mg daily, Eliquis, nadolol and verapamil 80 mg twice a day. Blood pressure 138/84 heart rate 72 afebrile maintaining oxygen saturation on nasal cannula. Laboratory data reviewed, sodium 137, potassium 4.2, creatinine 0.95. GENERAL: Well-appearing, well-nourished and in no acute distress. NECK: Supple without JVD or thyromegaly. LUNGS: Coarse scattered rhonchi, bibasilar rales and faint expiratory wheeze. Respiration equal and unlabored. HEART: Regular rate and rhythm with systolic ejection murmur at the left sternal border, no rubs or gallops. S1 and S2 heard. EXTREMITIES: Normal range of motion, 2+ bilateral lower extremity pitting edema. No clubbing or cyanosis. Peripheral pulses intact. ASSESSMENT Acute on chronic diastolic heart failure Leukocytosis Recent bacteremia and osteomyelitis on 6-week course of antibiotics Paroxysmal atrial fibrillation on long-term anticoagulation Diabetes mellitus Hypertension Dyslipidemia Valvular heart disease Pulmonary hypertension, RVSP 56 mmHg PLAN Continue IV diuresis. Repeat electrolytes and renal function in the morning. Nurse Practitioner note has been reviewed, I agree with a documented findings and plan of care. Patient was seen and examined. Objective - Vital Signs Vital signs: Vital Signs Temp 97.8 F 10/25/19 07:16 Pulse 72 10/25/19 11:40 Resp 76 H 10/25/19 11:16 BP 138/84 10/25/19 07:16 Pulse Ox 95 10/25/19 08:36 Intake & Output 10/24/19 10/25/19 10/25/19 18:59 06:59 18:59 Intake Total 1120 340 Output Total 1400 Balance -280 340 Weight 63.6 kg 61.5 kg 61.5 kg Intake: IV 400 Ampicillin 2,000 mg In 400 Sodium Chloride 0.9% 100 ml @ 200 mls/hr IVPB Q6HR [facility] Rx#:[id number] Intake, IV Titration 100 Amount Ampicillin 2,000 mg In 100 Sodium Chloride 0.9% 100 ml @ 200 mls/hr IVPB Q6HR [facility] Rx#:[id number] Oral 720 240 Output: Urine 1400 Other: Voiding Method Toilet Toilet Toilet # Voids 2 3 1 # Bowel Movements 0 - Labs CBC & Chem 7: 10/23/19 13:14 10/25/19 09:41 Labs: Abnormal Lab Results - Last 24 Hours (Table) 10/24/19 10/24/19 10/25/19 Range/Units 16:48 20:35 09:41 Chloride 93 L (98-107) mmol/L Carbon Dioxide 33 H (22-30) mmol/L BUN 30 H (7-17) mg/dL Glucose 217 H (74-99) mg/dL POC Glucose (mg/dL) 204 H 134 H (75-99) mg/dL 10/25/19 Range/Units 11:51 Chloride (98-107) mmol/L Carbon Dioxide (22-30) mmol/L BUN (7-17) mg/dL Glucose (74-99) mg/dL POC Glucose (mg/dL) 278 H (75-99) mg/dL Microbiology - Last 24 Hours (Table) 10/23/19 00:02 Blood Culture - Preliminary Blood No Growth after 48 hours
--- NOTE | 2019-10-25 12:54 | P.PN ---
Subjective Progress Note Date: 10/25/19 Principal diagnosis: Shortness of breath 84-year-old white female patient with past medical history of mild intermittent bronchial asthma, she follows with Dr. Malone in the pulmonary clinic, chronic, chronic congestive heart failure, diabetes mellitus, GERD/reflux, hypertension, hyperlipidemia, previous episode of myocardial infarction, osteoarthritis, who came into the hospital on October 22, 2019 with complaints of shortness of breath. Patient is currently at [facility] as she is receiving IV infusions of Ampicillin for bacteremia and osteomyelitis. She was at the infectious disease doctors office yesterday where she was noted to be very short of breath and has patient was sent in to the emergency department for evaluation. Patient states she had been short of breath for last few days. Apparently She also had increased peripheral edema. No pain complaints, no weakness, no fever or chills. Does have a mild productive cough. Blood culture s from last admission showed Enterococcus faecalis, he was also suspicious suspicion for T8 discitis, MRI of the spine could not be completed related to presence of a permanent pacemaker. Patient was prescribed 6 weeks of ampicillin and she has been getting infusions through the right before meals PICC line. Chest x-ray on admission showed no evidence for acute pulmonary process. Lab work showed white blood cell count of 10.8, hemoglobin 10.3, electrolytes and renal profile were unremarkable, with B1 of 26 and creatinine of 0.92. Plasma lactic acid was normal at 1.5, LFTs within normal limits, proBNP was 11,001 100, troponin was less than 0.012, influenza screen was negative. Patient has been afebrile, she is on 2 L of oxygen with a pulse ox of 97%. Today was seen in consultation, patient states that she is breathing easier she has been started on IV diuretics, lower extremity edema is significantly improved, there have been no fever or chills, physical exam reveals diffuse crackles and lateral bases. Still has residual 1+ pitting edema in lower extremities. No fever or chills, her ampicillin infusions have been resumed, she is on breathing treatments and daily dose of prednisone 10 mg. On 10/24/2019 patient seen in follow-up on selective care unit, she continues to diurese, breathing easier, lower extremity edema is improving, is in -1180 mL fluid balance over the last 24 hours. No fever or chills, continues on ampicillin infusions for recent history of bacteremia and possibility of T8 discitis. Vital signs are stable, patient states she is feeling much better overall . In the chair, in no acute distress. Echocardiogram was completed showing EF between 55 and 60%, trace to mild aortic regurgitation, severe mitral regurgitation, severe tricuspid regurgitation and moderate pulmonary hypertension with right-sided pressures of 56.7 mmHg. On 10/25/2019 patient seen in follow-up on general medical floor. She is sitting up in the recliner in no acute distress. He is on 2 L of oxygen with a pulse ox of 95%. Breathing seems to be stable, no worsening dyspnea, however her lower extremity edema started to worsen, and patient remains on IV diuretics 40 mg every 12 hours. She is in -1180 mL over the last 24 hours. No complaints of chest pain. No fever or chills, blood cultures show no growth so far. His labs have been reviewed and show a sodium of 137, potassium is 4.2, chloride, CO2 33, BUN of 30 creatinine is 0.95. Objective - Vital Signs Vital signs: Vital Signs Temp 97.8 F 10/25/19 07:16 Pulse 72 10/25/19 11:40 Resp 76 H 10/25/19 11:16 BP 138/84 10/25/19 07:16 Pulse Ox 95 10/25/19 08:36 Intake & Output 10/24/19 10/25/19 10/25/19 18:59 06:59 18:59 Intake Total 1120 340 Output Total 1400 Balance -280 340 Weight 63.6 kg 61.5 kg 61.5 kg Intake: IV 400 Ampicillin 2,000 mg In 400 Sodium Chloride 0.9% 100 ml @ 200 mls/hr IVPB Q6HR [facility] Rx#:[id number] Intake, IV Titration 100 Amount Ampicillin 2,000 mg In 100 Sodium Chloride 0.9% 100 ml @ 200 mls/hr IVPB Q6HR [facility] Rx#:[id number] Oral 720 240 Output: Urine 1400 Other: Voiding Method Toilet Toilet Toilet # Voids 2 3 1 # Bowel Movements 0 - Exam GENERAL EXAM: Alert, pleasant, 84-year-old white female, currently on 2 L of oxygen with a pulse ox of 99%, comfortable in no apparent distress. HEAD: Normocephalic/atraumatic. EYES: Normal reaction of pupils, equal size. Conjunctiva pink, sclera white. NOSE: Clear with pink turbinates. THROAT: No erythema or exudates. NECK: No masses, no JVD, no thyroid enlargement, no adenopathy. CHEST: No chest wall deformity. Symmetrical expansion. LUNGS: Equal air entry with image sounds, bilateral crackles CVS: Regular rate and rhythm, normal S1 and S2, no gallops, no murmurs, no rubs ABDOMEN: Soft, nontender. No hepatosplenomegaly, normal bowel sounds, no guarding or rigidity. EXTREMITIES: No clubbing, 1+ pitting lower extremity edema, no cyanosis, 2+ pulses and upper and lower extremities. MUSCULOSKELETAL: Muscle strength and tone normal. SPINE: Kyphosis of the spine SKIN: No rashes CENTRAL NERVOUS SYSTEM: Alert and oriented -3. No focal deficits, tone is normal in all 4 extremities. PSYCHIATRIC: Alert and oriented -3. Appropriate affect. Intact judgment and insight. - Labs CBC & Chem 7: 10/23/19 13:14 10/25/19 09:41 Labs: Abnormal Lab Results - Last 24 Hours (Table) 10/24/19 10/24/19 10/25/19 Range/Units 16:48 20:35 09:41 Chloride 93 L (98-107) mmol/L Carbon Dioxide 33 H (22-30) mmol/L BUN 30 H (7-17) mg/dL Glucose 217 H (74-99) mg/dL POC Glucose (mg/dL) 204 H 134 H (75-99) mg/dL 10/25/19 Range/Units 11:51 Chloride (98-107) mmol/L Carbon Dioxide (22-30) mmol/L BUN (7-17) mg/dL Glucose (74-99) mg/dL POC Glucose (mg/dL) 278 H (75-99) mg/dL Microbiology - Last 24 Hours (Table) 10/23/19 00:02 Blood Culture - Preliminary Blood No Growth after 48 hours Assessment and Plan Plan: Assessment: #1. Dyspnea related to acute exacerbation of chronic congestive heart failure with preserved left ventricular systolic function #2. Recent hospitalization for Enterococcus faecalis bacteremia and possibility of T8 discitis, discharge to [facility] on 10/02/2019 with ampicillin infusions for 6 weeks #3. Chronic A. fib on Eliquis, post permanent pacemaker implantation #4. Diabetes mellitus type 2 #5. GERD/reflux #6. Hypertension #7. Hyperlipidemia #8. Osteoarthritis #9. Osteoporosis #10. Chronic anemia #11. Anxiety depression #12. Mild intermittent chronic bronchial asthma Plan: Continue IV diuretics, from pulmonary perspective patient is breathing easier, she is maintaining negative fluid balance, remains on 2 L of oxygen the pulse ox 95%, no fever or chills, blood cultures show no growth, continue ampicillin infusions. Continue oral anticoagulation. Follow-up chest x-ray tomorrow I performed a history & physical examination of the patient and discussed their management with my nurse practitioner, Tory Aquino. I reviewed the nurse practitioner's note and agree with the documented findings and plan of care. Lung sounds are positive for diffuse crackles. The findings and the impression was discussed with the patient. I attest to the documentation by the nurse practitioner. Time with Patient: Less than 30
[2019-10-25 17:21] LABS: Glucose,Whole Blood 161 mg/dL (75-99)
[2019-10-25] MEDS: POTASSIUM CHLORIDE ER 10 MEQ TAB.ER.PRT PO SCH (17:26)
[2019-10-25 17:42] LABS: Hemoglobin A1C 6.7 % (4.0-6.0)
[2019-10-25 20:28] LABS: Glucose,Whole Blood 200 mg/dL (75-99)
[2019-10-26 01:08] VITALS: TEMP 98.1
[2019-10-26 07:16] LABS: Calcium 9.1 mg/dL (8.4-10.2); Potassium 3.9 mmol/L (3.5-5.1)
--- NOTE | 2019-10-26 07:18 | XR ---
EXAMINATION TYPE: XR chest 2V DATE OF EXAM: 10/26/2019 HISTORY: shortness of breath. REFERENCE: Previous study dated 10/22/2019. FINDINGS: There is a bipolar pacemaker place on the left. The heart is enlarged. There is bibasilar atelectasis. There is some thickening of the minor fissure on the right. There is blunting of the left CP angle and I could not exclude a small effusion. IMPRESSION: 1. CARDIOMEGALY. 2. BIBASILAR ATELECTASIS. 3. I COULD NOT EXCLUDE A LEFT-SIDED EFFUSION.
[2019-10-26] MEDS: IPRATROPIUM-ALBUTEROL 3 ML NEB INHALATION SCH ×2 (07:20→11:34)
[2019-10-26 07:22] LABS: Glucose,Whole Blood 131 mg/dL (75-99)
[2019-10-26 07:53] VITALS: BP 127/72; RESP 16
[2019-10-26] MEDS: SENNOSIDES-DOCUSATE SODIUM 1 EACH TAB PO SCH (08:06)
[2019-10-26] MEDS: AMPICILLIN 2,000 MG in SODIUM CHLORIDE 0.9% 100 ML IVPB SCH (08:07)
[2019-10-26] MEDS: VERAPAMIL 80 MG TAB PO SCH (08:07)
[2019-10-26] MEDS: NADOLOL 20 MG TAB PO SCH (08:07)
[2019-10-26] MEDS: APIXABAN 5 MG TAB PO SCH (08:07)
[2019-10-26] MEDS: INSULIN ASPART (NovoLOG) 100 UNIT/ML VIAL SQ SCH (08:07)
[2019-10-26] MEDS: FUROSEMIDE 10 MG/ML 4 ML VIAL IV SCH (08:07)
[2019-10-26] MEDS: PANTOPRAZOLE 40 MG TABLET PO SCH (08:07)
[2019-10-26] MEDS: predniSONE 10 MG TAB PO SCH (08:07)
[2019-10-26] MEDS: AMIODARONE 100 MG TAB PO SCH (08:07)
[2019-10-26 11:30] LABS: Glucose,Whole Blood 246 mg/dL (75-99)
[2019-10-26 11:58] VITALS: PULSE 72
--- NOTE | 2019-10-27 06:32 | DS ---
DISCHARGE SUMMARY The patient was to be discharged yesterday, Cardiology wanted her on another day of IV Lasix. They have cleared to go back to the retirement today and she will go to [facility] [place] this afternoon. MMBRYANL / IJN: [id number] /
== END 2019-10-26 12:44 | DRG 292 ==
LOC: EC 11:28 → 3SCARD 14:25 → 4SSUR 10-25 00:22
PROVIDERS: ADMIT Family Medicine; ATTEND Family Medicine
DX: I11.0 Hypertensive heart disease with heart failure (principal); I48.21 Permanent atrial fibrillation; I50.43 Acute on chronic combined systolic (congestive) and diastolic (congestive) heart failure; I27.20 Pulmonary hypertension, unspecified; I08.1 Rheumatic disorders of both mitral and tricuspid valves; E78.5 Hyperlipidemia, unspecified; E11.69 Type 2 diabetes mellitus with other specified complication; J84.10 Pulmonary fibrosis, unspecified; K21.9 Gastro-esophageal reflux disease without esophagitis; M19.90 Unspecified osteoarthritis, unspecified site; I49.5 Sick sinus syndrome; M81.0 Age-related osteoporosis without current pathological fracture; D64.9 Anemia, unspecified; J44.9 Chronic obstructive pulmonary disease, unspecified; F41.8 Other specified anxiety disorders; Z79.01 Long term (current) use of anticoagulants; Z79.899 Other long term (current) drug therapy; Z80.3 Family history of malignant neoplasm of breast; Z79.84 Long term (current) use of oral hypoglycemic drugs; Z87.01 Personal history of pneumonia (recurrent); I25.2 Old myocardial infarction; Z90.49 Acquired absence of other specified parts of digestive tract; Z90.89 Acquired absence of other organs; Z98.51 Tubal ligation status; Z88.8 Allergy status to other drugs, medicaments and biological substances; Z88.5 Allergy status to narcotic agent; Z95.0 Presence of cardiac pacemaker
CPT/HCPCS: 36415; 71046; 80048; 80053; 83036; 83605; 83735; 83880; 84484; 85025; 85610; 85730; 87040; 87502; 93005; 93306; 94640; 94760; 96361; 96365; 96366; 96375; 96376; 99285

== ENCOUNTER 2020-01-11 22:52 | Emergency (ER) | payer MEDICARE ==
--- NOTE | 2020-01-11 23:16 | ED ---
SOB HPI - General Stated Complaint: GORDON Time Seen by Provider: 01/11/20 23:06 - History of Present Illness Initial Comments: This patient is an 84-year-old woman who presents to be evaluated for what she is describing as "asthma troubles." She states she has history of chronic asthma and usually sees Dr. Malone. She states that for the past couple of days she feels like her condition is been getting worse. She has been having increasing shortness of breath, wheezing, and a cough with what she is describing as "junk. She denies fevers or chills. No chest pain. She states that she is not currently taking any steroids. On the review of systems, she does note that her right leg looks swollen compared with usual, though she does have some swelling at baseline. MD Complaint: shortness of breath, cough, "asthma attack" Onset/Timin -: days(s) Severity scale (1-10): 0 Consistency: constant Improves With: nothing Worsens With: nothing Known History Of: asthma Associated Symptoms: cough, sputum production Treatments Prior to Arrival: bronchodilator - Related Data Home Oxygen Therapy: No Home Medications Medication Instructions Recorded Confirmed Apixaban [Eliquis] 5 mg PO BID@0800,1700 11/24/14 10/22/19 Glimepiride [Amaryl] 2 mg PO BID@0800,169906/07/15 10/22/19 Nadolol [Corgard] 40 mg PO DAILY@0800 05/20/16 10/22/19 Amiodarone [Cordarone] 100 mg PO DAILY@0800 11/27/17 10/22/19 Omeprazole 40 mg PO DAILY@0800 06/10/18 10/22/19 Verapamil [Isoptin] 80 mg PO BID@0800,17006/10/18 10/22/19 Fluticasone/Salmeterol [Advair 1 puff INHALATION RT-BID@0800,209906/03/19 10/22/19 500-50 Diskus] Acetaminophen [Tylenol 8 Hour] 650 mg PO BID@0800,2100 09/26/19 10/22/19 Cholecalciferol [Vitamin D3 (25 5,000 unit PO DAILY@169909/26/19 10/22/19 Mcg = 1000 Iu)] Cyanocobalamin (Vitamin B-12) 1,000 mcg PO DAILY@1700 09/26/19 10/22/19 [Vitamin B-12] Ferrous Gluconate 324 mg PO DAILY@1700 09/26/19 10/22/19 predniSONE 10 mg PO DAILY@0800 09/26/19 10/22/19 Bisacodyl [Dulcolax] 10 mg RECTAL DAILY PRN 10/22/19 10/22/19 Furosemide [Lasix] 40 mg PO DAILY@0800 10/22/19 10/22/19 Lactose-Reduced Food [Ensure Plus] 1 can PO BID@0800,1700 10/22/19 10/22/19 Magnesium Hydroxide [Milk of 7,200 mg PO DAILY PRN 10/22/19 10/22/19 Magnesia Concentrate] Melatonin 1 mg PO HS@2100 10/22/19 10/22/19 Na Phos,M-B/Na Phos,Di-Ba [Fleet 1 dose RECTAL DAILY PRN 10/22/19 10/22/19 Adult] Potassium Chloride 10 meq PO DAILY@1700 10/22/19 10/22/19 Sennosides-Docusate Sodium 1 tab PO DAILY@0800 10/22/19 10/22/19 [Senokot-S] Previous Rx's Medication Instructions Recorded Ampicillin Sodium 2,000 mg IVPB Q6HR #168 vial 10/02/19 HYDROcodone/APAP 5-325MG [[place] 1 tab PO Q6H PRN #12 tab 10/02/19 5-325] Ipratropium-Albuterol Nebulize 3 ml INHALATION RT-QID ampul.neb 10/02/19 [Duoneb 0.5 mg-3 mg/3 ml Soln] Azithromycin [Zithromax Z-pack] 250 mg PO DIRECTED #6 tab 01/12/20 predniSONE [Deltasone] 20 mg PO BID #8 tab 01/12/20 Allergies Allergy/AdvReac Type Severity Reaction Status Date / Time diltiazem Allergy Itching Verified 10/22/19 13:06 morphine AdvReac Confusion Verified 10/22/19 13:06 Review of Systems ROS Statement: Those systems with pertinent positive or pertinent negative responses have been documented in the HPI. ROS Other: All systems not noted in ROS Statement are negative. Constitutional: Denies: fever, chills Respiratory: Reports: cough, dyspnea, wheezes. Denies: hemoptysis Cardiovascular: Reports: edema (right leg). Denies: chest pain, palpitations, syncope Gastrointestinal: Denies: abdominal pain, nausea, vomiting, diarrhea, melena, hematochezia Genitourinary: Denies: dysuria, hematuria Musculoskeletal: Denies: back pain Skin: Denies: rash Neurological: Denies: headache, weakness Past Medical History Past Medical History: Atrial Fibrillation, Asthma, Chest Pain / Angina, Heart Failure, COPD, Diabetes Mellitus, GERD/Reflux, Hyperlipidemia, Hypertension, Myocardial Infarction ([place]), Osteoarthritis (OA), Pneumonia Additional Past Medical History / Comment(s): Pt admitted to [facility] on 09/04/19 fall with compression fracture T8-chronic back pain since, acute kidney injury and acute pancreatitis. Other hx; Afib RVR, NIDDM type II, neuropathy bilateral feet, arthritis multiple joints, osteoporosis, chronic anemia, falls, 2013 shingelles Last Myocardial Infarction Date:: 07/16/11 History of Any Multi-Drug Resistant Organisms: None Reported Past Surgical History: Appendectomy, Breast Surgery, Heart Catheterization, Pacemaker, Tubal Ligation Additional Past Surgical History / Comment(s): 02/2011 cardiac cath-normal, benign L breast lumpectomy, bronchoscopy, EGD/colonoscopy, bilateral cataract removals, 2010 VATS L lung d/t fibrotic lung changes. Past Anesthesia/Blood Transfusion Reactions: No Reported Reaction Additional Past Anesthesia/Blood Transfusion Reaction / Comment(s): Pt has received blood in past without reaction Type of Cardiac Device: Permanent Pacemaker Device Placement Date:: NOVEMBER 28 2017 Smoking Status: Never smoker - Past Family History Sister(s) Family Medical History: Cancer Additional Family Medical History / Comment(s): breast CA Mother History Unknown: Yes Family Medical History: No Reported History Additional Family Medical History / Comment(s): from car accident no other hx known Father History Unknown: Yes Family Medical History: No Reported History Additional Family Medical History / Comment(s): committed suicide Daughter(s) Family Medical History: Cancer Additional Family Medical History / Comment(s): breast CA General Exam General appearance: alert, in no apparent distress Head exam: Present: atraumatic, normocephalic Eye exam: Present: normal appearance. Absent: scleral icterus, conjunctival injection ENT exam: Present: normal oropharynx Neck exam: Present: normal inspection Respiratory exam: Present: wheezes, rales. Absent: respiratory distress, rhonchi, stridor, accessory muscle use, decreased breath sounds, prolonged expiratory Cardiovascular Exam: Present: regular rate, normal rhythm, normal heart sounds. Absent: systolic murmur, diastolic murmur, rubs, gallop GI/Abdominal exam: Present: soft. Absent: distended, tenderness, guarding, rebound, rigid, mass Extremities exam: Present: normal inspection, normal capillary refill, pedal edema (right leg). Absent: calf tenderness Back exam: Present: normal inspection. Absent: CVA tenderness (R), CVA tenderness (L) Neurological exam: Present: alert Skin exam: Present: warm, dry, intact, normal color. Absent: rash Course Vital Signs 01/11/20 01/12/20 23:16 02:11 Temperature 98.1 F Pulse Rate 70 70 Respiratory 20 20 Rate Blood Pressure 105/64 O2 Sat by Pulse 99 99 Oximetry Medical Decision Making - Medical Decision Making Patient is an 84-year-old woman here for cough, dyspnea that she is describing is consistent with her usual respiratory flareups. She is feeling better here following treatment and does request discharge. I recommended staying overnight but she states she is feeling somewhat better she will go home and follow with her city bailiff. She will call in the morning. She will maintain a low threshold to return here. - Lab Data Result diagrams: 01/12/20 00:15 01/12/20 00:15 Lab Results 01/12/20 01/12/20 01/12/20 Range/Units 00:15 00:15 00:15 WBC 11.0 H (3.8-10.6) k/uL RBC 4.56 (3.80-5.40) m/uL Hgb 13.0 (11.4-16.0) gm/dL Hct 40.8 (34.0-46.0) % MCV 89.5 (80.0-100.0) fL MCH 28.4 (25.0-35.0) pg MCHC 31.8 (31.0-37.0) g/dL RDW 17.6 H (11.5-15.5) % Plt Count 360 (150-450) k/uL Neutrophils % 71 % Lymphocytes % 15 % Monocytes % 10 % Eosinophils % 2 % Basophils % 1 % Neutrophils # 7.8 H (1.3-7.7) k/uL Lymphocytes # 1.6 (1.0-4.8) k/uL Monocytes # 1.1 H (0-1.0) k/uL Eosinophils # 0.2 (0-0.7) k/uL Basophils # 0.1 (0-0.2) k/uL Hypochromasia Slight Anisocytosis Slight PT 11.2 (9.0-12.0) sec INR 1.1 (<1.2) APTT 27.4 (22.0-30.0) sec D-Dimer 0.33 (<0.60) mg/L FEU Sodium 138 (137-145) mmol/L Potassium 4.1 (3.5-5.1) mmol/L Chloride 100 (98-107) mmol/L Carbon Dioxide 28 (22-30) mmol/L Anion Gap 10 mmol/L BUN 29 H (7-17) mg/dL Creatinine 1.08 H (0.52-1.04) mg/dL Est GFR (CKD-EPI)AfAm 55 (>60 ml/min/1.73 sqM) Est GFR (CKD-EPI)NonAf 47 (>60 ml/min/1.73 sqM) Glucose 130 H (74-99) mg/dL Plasma Lactic Acid Ricardo (0.7-2.0) mmol/L Calcium 9.6 (8.4-10.2) mg/dL Total Bilirubin 0.5 (0.2-1.3) mg/dL AST 25 (14-36) U/L ALT 17 (4-34) U/L Alkaline Phosphatase 97 (38-126) U/L Troponin I (0.000-0.034) ng/mL NT-Pro-B Natriuret Pep pg/mL Total Protein 6.8 (6.3-8.2) g/dL Albumin 3.9 (3.5-5.0) g/dL Coronavirus (PCR) (Not Detectd) 01/12/20 01/12/20 01/12/20 Range/Units 00:15 00:15 00:15 WBC (3.8-10.6) k/uL RBC (3.80-5.40) m/uL Hgb (11.4-16.0) gm/dL Hct (34.0-46.0) % MCV (80.0-100.0) fL MCH (25.0-35.0) pg MCHC (31.0-37.0) g/dL RDW (11.5-15.5) % Plt Count (150-450) k/uL Neutrophils % % Lymphocytes % % Monocytes % % Eosinophils % % Basophils % % Neutrophils # (1.3-7.7) k/uL Lymphocytes # (1.0-4.8) k/uL Monocytes # (0-1.0) k/uL Eosinophils # (0-0.7) k/uL Basophils # (0-0.2) k/uL Hypochromasia Anisocytosis PT (9.0-12.0) sec INR (<1.2) APTT (22.0-30.0) sec D-Dimer (<0.60) mg/L FEU Sodium (137-145) mmol/L Potassium (3.5-5.1) mmol/L Chloride (98-107) mmol/L Carbon Dioxide (22-30) mmol/L Anion Gap mmol/L BUN (7-17) mg/dL Creatinine (0.52-1.04) mg/dL Est GFR (CKD-EPI)AfAm (>60 ml/min/1.73 sqM) Est GFR (CKD-EPI)NonAf (>60 ml/min/1.73 sqM) Glucose (74-99) mg/dL Plasma Lactic Acid Ricardo 0.9 (0.7-2.0) mmol/L Calcium (8.4-10.2) mg/dL Total Bilirubin (0.2-1.3) mg/dL AST (14-36) U/L ALT (4-34) U/L Alkaline Phosphatase (38-126) U/L Troponin I <0.012 (0.000-0.034) ng/mL NT-Pro-B Natriuret Pep 4340 pg/mL Total Protein (6.3-8.2) g/dL Albumin (3.5-5.0) g/dL Coronavirus (PCR) (Not Detectd) 01/12/20 Range/Units 00:15 WBC (3.8-10.6) k/uL RBC (3.80-5.40) m/uL Hgb (11.4-16.0) gm/dL Hct (34.0-46.0) % MCV (80.0-100.0) fL MCH (25.0-35.0) pg MCHC (31.0-37.0) g/dL RDW (11.5-15.5) % Plt Count (150-450) k/uL Neutrophils % % Lymphocytes % % Monocytes % % Eosinophils % % Basophils % % Neutrophils # (1.3-7.7) k/uL Lymphocytes # (1.0-4.8) k/uL Monocytes # (0-1.0) k/uL Eosinophils # (0-0.7) k/uL Basophils # (0-0.2) k/uL Hypochromasia Anisocytosis PT (9.0-12.0) sec INR (<1.2) APTT (22.0-30.0) sec D-Dimer (<0.60) mg/L FEU Sodium (137-145) mmol/L Potassium (3.5-5.1) mmol/L Chloride (98-107) mmol/L Carbon Dioxide (22-30) mmol/L Anion Gap mmol/L BUN (7-17) mg/dL Creatinine (0.52-1.04) mg/dL Est GFR (CKD-EPI)AfAm (>60 ml/min/1.73 sqM) Est GFR (CKD-EPI)NonAf (>60 ml/min/1.73 sqM) Glucose (74-99) mg/dL Plasma Lactic Acid Ricardo (0.7-2.0) mmol/L Calcium (8.4-10.2) mg/dL Total Bilirubin (0.2-1.3) mg/dL AST (14-36) U/L ALT (4-34) U/L Alkaline Phosphatase (38-126) U/L Troponin I (0.000-0.034) ng/mL NT-Pro-B Natriuret Pep pg/mL Total Protein (6.3-8.2) g/dL Albumin (3.5-5.0) g/dL Coronavirus (PCR) Not Detected (Not Detectd) - EKG Data -: EKG Interpreted by Nd Rate: normal (Rate 70 bpm) Interpretation: other (Ventricular paced rhythm) Disposition Clinical Impression: COPD exacerbation Disposition: HOME SELF-CARE Condition: Fair Instructions (If sedation given, give patient instructions): Chronic Bronchitis (ED) Prescriptions: predniSONE [Deltasone] 20 mg PO BID #8 tab Azithromycin [Zithromax Z-pack] 250 mg PO DIRECTED #6 tab Is patient prescribed a controlled substance at d/c from ED?: No Referrals: Royal Farias MD [Primary Care Provider] - 1-2 days
[2020-01-11 23:22] VITALS: TEMP 98.1
--- NOTE | 2020-01-12 00:09 | XR ---
EXAMINATION TYPE: XR chest 2V DATE OF EXAM: 01/12/2020 COMPARISON: 10/26/2019 HISTORY: Difficulty breathing TECHNIQUE: FINDINGS: There is coarsening of interstitial markings. Heart is slightly enlarged. There is left axi llary pacemaker. There is no obvious heart failure. There is osteopenia with compression fractures of T9 and T7 up to 50%. There are no hilar masses. There is some linear density in the right middle lob e and lingula left upper lobe. IMPRESSION: Pulmonary fibrotic changes and mild atelectasis. Cardiomegaly. No obvious heart failure. There is a new compression fracture of T7 compared to old exam.
[2020-01-12 00:51] LABS: Anisocytosis Slight; Basophils # (A) 0.1 k/uL (0-0.2); Basophils % (A) 1 %; Eosinophils # (A) 0.2 k/uL (0-0.7); Eosinophils % (A) 2 %; HCT 40.8 % (34.0-46.0); Hypochromasia Slight; Lymphocytes # (A) 1.6 k/uL (1.0-4.8); Lymphocytes % (A) 15 %; MCH 28.4 pg (25.0-35.0); MCHC 31.8 g/dL (31.0-37.0); MCV 89.5 fL (80.0-100.0); Mean Platelet Volume 7.8; Monocytes # (A) 1.1 k/uL (0-1.0); Monocytes % (A) 10 %; Neutrophils # (A) 7.8 k/uL (1.3-7.7); Neutrophils % (A) 71 %; Platelet Count 360 k/uL (150-450); RBC 4.56 m/uL (3.80-5.40); RDW 17.6 % (11.5-15.5)
[2020-01-12 01:00] LABS: Albumin 3.9 g/dL (3.5-5.0); Calcium 9.6 mg/dL (8.4-10.2); Potassium 4.1 mmol/L (3.5-5.1); Total Bilirubin 0.5 mg/dL (0.2-1.3); Total Protein 6.8 g/dL (6.3-8.2)
[2020-01-12 01:08] LABS: D-Dimer 0.33 mg/L FEU (<0.60); INR 1.1 (<1.2); Partial Thromboplastin Time 27.4 sec (22.0-30.0); Prothrombin Time 11.2 sec (9.0-12.0)
[2020-01-12] MEDS ORDERED: ALBUTEROL HFA INHALER INHALATION STA (01:47)
[2020-01-12] MEDS ORDERED: predniSONE 20 MG TAB PO STA (01:47)
[2020-01-12] MEDS ORDERED: AZITHROMYCIN 500 MG TAB PO STA (02:32)
[2020-01-12 02:43] VITALS: BP 123/74
[2020-01-12 03:25] VITALS: PULSE 61; RESP 30
== END 2020-01-12 02:45 | disposition home or self-care (01) ==
LOC: EC 22:52
DX: J44.1 Chronic obstructive pulmonary disease with (acute) exacerbation (principal); E11.40 Type 2 diabetes mellitus with diabetic neuropathy, unspecified; I11.0 Hypertensive heart disease with heart failure; I50.9 Heart failure, unspecified; I48.91 Unspecified atrial fibrillation; K21.9 Gastro-esophageal reflux disease without esophagitis; I25.2 Old myocardial infarction; Z20.828 Contact with and (suspected) exposure to other viral communicable diseases; Z79.01 Long term (current) use of anticoagulants; Z79.51 Long term (current) use of inhaled steroids; Z79.899 Other long term (current) drug therapy; Z88.5 Allergy status to narcotic agent; Z88.8 Allergy status to other drugs, medicaments and biological substances; Z95.0 Presence of cardiac pacemaker
CPT/HCPCS: 99285; 36415; 93005; 85379; 83880; 80053; 83605; 84484; 85025; 85610; 85730; 87635; 71046; J7512

== ENCOUNTER 2020-03-26 11:50 | Inpatient (IN) | payer MEDICARE ==
[2020-03-26] MEDS ORDERED: methylPREDNISolone SOD SUCCI 125 MG/2 ML VIAL IV STA (12:10)
[2020-03-26] MEDS ORDERED: SODIUM CHLORIDE 0.9% 1,000 ML IV STA (12:10)
[2020-03-26] MEDS ORDERED: FUROSEMIDE 10 MG/ML 4 ML VIAL IV STA (12:10)
[2020-03-26] MEDS ORDERED: SODIUM CHLORIDE 0.9% 500 ML 500 ML IV STA (12:10)
[2020-03-26] MEDS ORDERED: IPRATROPIUM-ALBUTEROL 3 ML NEB INHALATION STA (12:10)
--- NOTE | 2020-03-26 12:36 | ED ---
General Adult HPI - General Chief complaint: Shortness of Breath Stated complaint: GORDON Time Seen by Provider: 03/26/20 11:53 Source: patient, RN notes reviewed, old records reviewed Mode of arrival: EMS Limitations: no limitations - History of Present Illness Initial comments: Patient is a 85-year-old female presents emergency room today with worsening shortness of breath productive cough worsening over the past week. She has a history of CHF and COPD. She is on chronic steroid. Patient has had no recent fevers or chills. Denies any history of sick contacts with Covid. - Related Data Home Medications Medication Instructions Recorded Confirmed Apixaban [Eliquis] 5 mg PO BID@0800,169911/24/14 10/22/19 Glimepiride [Amaryl] 2 mg PO BID@0800,169906/07/15 10/22/19 Nadolol [Corgard] 40 mg PO DAILY@0805/20/16 10/22/19 Amiodarone [Cordarone] 100 mg PO DAILY@79911/27/17 10/22/19 Omeprazole 40 mg PO DAILY@0806/10/18 10/22/19 Verapamil [Isoptin] 80 mg PO BID@0800,169906/10/18 10/22/19 Fluticasone/Salmeterol [Advair 1 puff INHALATION RT-BID@0800,209906/03/19 10/22/19 500-50 Diskus] Acetaminophen [Tylenol 8 Hour] 650 mg PO BID@0800,209909/26/19 10/22/19 Cholecalciferol [Vitamin D3 (25 5,000 unit PO DAILY@169909/26/19 10/22/19 Mcg = 1000 Iu)] Cyanocobalamin (Vitamin B-12) 1,000 mcg PO DAILY@169909/26/19 10/22/19 [Vitamin B-12] Ferrous Gluconate 324 mg PO DAILY@169909/26/19 10/22/19 predniSONE 10 mg PO DAILY@79909/26/19 10/22/19 Bisacodyl [Dulcolax] 10 mg RECTAL DAILY PRN 10/22/19 10/22/19 Furosemide [Lasix] 40 mg PO DAILY@79910/22/19 10/22/19 Lactose-Reduced Food [Ensure Plus] 1 can PO BID@0800,1700 10/22/19 10/22/19 Magnesium Hydroxide [Milk of 7,200 mg PO DAILY PRN 10/22/19 10/22/19 Magnesia Concentrate] Melatonin 1 mg PO HS@2100 10/22/19 10/22/19 Na Phos,M-B/Na Phos,Di-Ba [Fleet 1 dose RECTAL DAILY PRN 10/22/19 10/22/19 Adult] Potassium Chloride 10 meq PO DAILY@1700 10/22/19 10/22/19 Sennosides-Docusate Sodium 1 tab PO DAILY@0800 10/22/19 10/22/19 [Senokot-S] Previous Rx's Medication Instructions Recorded Ampicillin Sodium 2,000 mg IVPB Q6HR #168 vial 10/02/19 HYDROcodone/APAP 5-325MG [[place] 1 tab PO Q6H PRN #12 tab 10/02/19 5-325] Ipratropium-Albuterol Nebulize 3 ml INHALATION RT-QID ampul.neb 10/02/19 [Duoneb 0.5 mg-3 mg/3 ml Soln] Azithromycin [Zithromax Z-pack] 250 mg PO DIRECTED #6 tab 01/12/20 predniSONE [Deltasone] 20 mg PO BID #8 tab 01/12/20 Allergies Allergy/AdvReac Type Severity Reaction Status Date / Time diltiazem Allergy Itching Verified 03/26/20 12:01 morphine AdvReac Confusion Verified 03/26/20 12:01 Review of Systems ROS Statement: Those systems with pertinent positive or pertinent negative responses have been documented in the HPI. ROS Other: All systems not noted in ROS Statement are negative. Past Medical History Past Medical History: Atrial Fibrillation, Asthma, Chest Pain / Angina, Heart Failure, COPD, Diabetes Mellitus, GERD/Reflux, Hyperlipidemia, Hypertension, Myocardial Infarction ([place]), Osteoarthritis (OA), Pneumonia Additional Past Medical History / Comment(s): Pt admitted to [facility] on 09/04/19 fall with compression fracture T8-chronic back pain since, acute kidney injury and acute pancreatitis. Other hx; Afib RVR, NIDDM type II, neuropathy bilateral feet, arthritis multiple joints, osteoporosis, chronic anemia, falls, 2013 shingelles Last Myocardial Infarction Date:: 07/16/11 History of Any Multi-Drug Resistant Organisms: None Reported Past Surgical History: Appendectomy, Breast Surgery, Heart Catheterization, Pacemaker, Tubal Ligation Additional Past Surgical History / Comment(s): 02/2011 cardiac cath-normal, benign L breast lumpectomy, bronchoscopy, EGD/colonoscopy, bilateral cataract removals, 2010 VATS L lung d/t fibrotic lung changes. Past Anesthesia/Blood Transfusion Reactions: No Reported Reaction Additional Past Anesthesia/Blood Transfusion Reaction / Comment(s): Pt has received blood in past without reaction Type of Cardiac Device: Permanent Pacemaker Device Placement Date:: NOVEMBER 28 2017 Past Psychological History: No Psychological Hx Reported, Depression Past Alcohol Use History: Rare Past Drug Use History: None Reported - Past Family History Sister(s) Family Medical History: Cancer Additional Family Medical History / Comment(s): breast CA Mother History Unknown: Yes Family Medical History: No Reported History Additional Family Medical History / Comment(s): from car accident no other hx known Father History Unknown: Yes Family Medical History: No Reported History Additional Family Medical History / Comment(s): committed suicide Daughter(s) Family Medical History: Cancer Additional Family Medical History / Comment(s): breast CA General Exam - General Exam Comments Initial Comments: 85 -year-old female. Alert and oriented. No distress. Limitations: no limitations General appearance: alert Head exam: Present: atraumatic, normocephalic, normal inspection Eye exam: Present: normal appearance ENT exam: Present: normal exam Neck exam: Present: normal inspection. Absent: tenderness, meningismus, lymphadenopathy Respiratory exam: Present: wheezes, rales, decreased breath sounds. Absent: normal lung sounds bilaterally, respiratory distress, rhonchi, stridor Cardiovascular Exam: Present: regular rate, normal rhythm, normal heart sounds. Absent: systolic murmur, diastolic murmur, rubs, gallop, clicks GI/Abdominal exam: Present: soft, normal bowel sounds. Absent: distended, tenderness, guarding, rebound, rigid Extremities exam: Present: normal inspection, full ROM, normal capillary refill. Absent: tenderness, pedal edema, joint swelling, calf tenderness Back exam: Present: normal inspection, full ROM Neurological exam: Present: alert, oriented X3, CN II-XII intact Psychiatric exam: Present: normal affect, normal mood Skin exam: Present: warm, dry, intact, normal color. Absent: rash Course Vital Signs 03/26/20 03/26/20 03/26/20 11:53 12:30 13:00 Temperature 98.1 F Pulse Rate 71 70 72 Respiratory 22 18 18 Rate Blood Pressure 132/70 119/72 123/68 O2 Sat by Pulse 95 100 100 Oximetry 03/26/20 03/26/20 13:08 14:00 Temperature Pulse Rate 70 70 Respiratory 16 Rate Blood Pressure 111/70 O2 Sat by Pulse 100 Oximetry EKG Findings - EKG Comments: EKG Findings:: EKG shows a ventricular paced rhythm. Abnormal EKG. Ventricular rate of 70 bpm. Subsided. She synagogue is 170 ms. QT QTc is 480/518 ms. Medical Decision Making - Medical Decision Making 85-year-old female presents recent emergency department today with weakness worsening cough and shortness of breath progressive over the past week. She has a known history of COPD and CHF. She reports a nonproductive cough. Labs are reviewed today. She does have evidence of a white blood cell count was concerning for leukocytosis. She has been on steroids and this could be reflective of this. She denies any fevers. Patient at this time chest x-ray shows concerns for pulmonary vascular congestion concerning for CHF. Her BNP is significantly elevated to 14,000. This is the highest it has been in the past. She is given Lasix and Nitropaste emergency department. She was also given a breathing treatment Solu-Medrol due to Wheezing. Patient Did Have Blood Cultures Completed at This Time. Discussed Case with Dr. Calix, whom discussed with Dr. Skaggs. Patient Will Be Admitted at This Time with Consult to Cardiology for Concern for CHF. - Lab Data Result diagrams: 03/26/20 12:12 03/26/20 12:12 Lab Results 03/26/20 03/26/20 03/26/20 Range/Units 12:12 12:12 12:12 WBC 20.1 H (3.8-10.6) k/uL RBC 3.06 L (3.80-5.40) m/uL Hgb 9.1 L (11.4-16.0) gm/dL Hct 28.6 L (34.0-46.0) % MCV 93.5 (80.0-100.0) fL MCH 29.8 (25.0-35.0) pg MCHC 31.8 (31.0-37.0) g/dL RDW 14.9 (11.5-15.5) % Plt Count 485 H (150-450) k/uL Neutrophils % 90 % Lymphocytes % 4 % Monocytes % 5 % Eosinophils % 1 % Basophils % 0 % Neutrophils # 18.0 H (1.3-7.7) k/uL Lymphocytes # 0.8 L (1.0-4.8) k/uL Monocytes # 1.0 (0-1.0) k/uL Eosinophils # 0.1 (0-0.7) k/uL Basophils # 0.0 (0-0.2) k/uL Hypochromasia Marked PT 10.4 (9.0-12.0) sec INR 1.0 (<1.2) APTT 23.3 (22.0-30.0) sec D-Dimer 0.26 (<0.60) mg/L FEU Sodium 134 L (137-145) mmol/L Potassium 5.9 H (3.5-5.1) mmol/L Chloride 103 (98-107) mmol/L Carbon Dioxide 24 (22-30) mmol/L Anion Gap 7 mmol/L BUN 33 H (7-17) mg/dL Creatinine 0.89 (0.52-1.04) mg/dL Est GFR (CKD-EPI)AfAm 68 (>60 ml/min/1.73 sqM) Est GFR (CKD-EPI)NonAf 59 (>60 ml/min/1.73 sqM) Glucose 257 H (74-99) mg/dL Plasma Lactic Acid Ricardo (0.7-2.0) mmol/L Calcium 8.8 (8.4-10.2) mg/dL Magnesium 1.9 (1.6-2.3) mg/dL Total Bilirubin 0.6 (0.2-1.3) mg/dL AST 25 (14-36) U/L ALT 13 (4-34) U/L Alkaline Phosphatase 75 (38-126) U/L Troponin I (0.000-0.034) ng/mL NT-Pro-B Natriuret Pep pg/mL Total Protein 5.8 L (6.3-8.2) g/dL Albumin 3.3 L (3.5-5.0) g/dL 03/26/20 03/26/20 03/26/20 Range/Units 12:12 12:12 12:12 WBC (3.8-10.6) k/uL RBC (3.80-5.40) m/uL Hgb (11.4-16.0) gm/dL Hct (34.0-46.0) % MCV (80.0-100.0) fL MCH (25.0-35.0) pg MCHC (31.0-37.0) g/dL RDW (11.5-15.5) % Plt Count (150-450) k/uL Neutrophils % % Lymphocytes % % Monocytes % % Eosinophils % % Basophils % % Neutrophils # (1.3-7.7) k/uL Lymphocytes # (1.0-4.8) k/uL Monocytes # (0-1.0) k/uL Eosinophils # (0-0.7) k/uL Basophils # (0-0.2) k/uL Hypochromasia PT (9.0-12.0) sec INR (<1.2) APTT (22.0-30.0) sec D-Dimer (<0.60) mg/L FEU Sodium (137-145) mmol/L Potassium (3.5-5.1) mmol/L Chloride (98-107) mmol/L Carbon Dioxide (22-30) mmol/L Anion Gap mmol/L BUN (7-17) mg/dL Creatinine (0.52-1.04) mg/dL Est GFR (CKD-EPI)AfAm (>60 ml/min/1.73 sqM) Est GFR (CKD-EPI)NonAf (>60 ml/min/1.73 sqM) Glucose (74-99) mg/dL Plasma Lactic Acid Ricardo 1.6 (0.7-2.0) mmol/L Calcium (8.4-10.2) mg/dL Magnesium (1.6-2.3) mg/dL Total Bilirubin (0.2-1.3) mg/dL AST (14-36) U/L ALT (4-34) U/L Alkaline Phosphatase (38-126) U/L Troponin I 0.020 (0.000-0.034) ng/mL NT-Pro-B Natriuret Pep 04070 pg/mL Total Protein (6.3-8.2) g/dL Albumin (3.5-5.0) g/dL - Radiology Data Radiology results: report reviewed Chest x-ray shows cardiomegaly with interstitial vascular prominence. Correlate with CHF with mild pulmonary vascular congestion. Trace effusions with adjacent Kaushal or consolidation. Disposition Clinical Impression: Pulmonary edema, Congestive heart failure (CHF), COPD (chronic obstructive pulmonary disease), Leukocytosis Disposition: ADMITTED IP TO THIS HOSP Condition: Stable Is patient prescribed a controlled substance at d/c from ED?: No Referrals: Royal Farias MD [Primary Care Provider] - 1-2 days Time of Disposition: 14:14
[2020-03-26 12:40] LABS: Basophils % (A) 0 %; Eosinophils # (A) 0.1 k/uL (0-0.7); Eosinophils % (A) 1 %; HCT 28.6 % (34.0-46.0); HGB 9.1 gm/dL (11.4-16.0); Hypochromasia Marked; Lymphocytes # (A) 0.8 k/uL (1.0-4.8); Lymphocytes % (A) 4 %; MCH 29.8 pg (25.0-35.0); MCHC 31.8 g/dL (31.0-37.0); MCV 93.5 fL (80.0-100.0); Mean Platelet Volume 7.8; Monocytes % (A) 5 %; Neutrophils % (A) 90 %; Platelet Count 485 k/uL (150-450); RBC 3.06 m/uL (3.80-5.40); RDW 14.9 % (11.5-15.5); WBC 20.1 k/uL (3.8-10.6)
[2020-03-26 12:55] LABS: Albumin 3.3 g/dL (3.5-5.0); Calcium 8.8 mg/dL (8.4-10.2); Total Bilirubin 0.6 mg/dL (0.2-1.3); Total Protein 5.8 g/dL (6.3-8.2)
[2020-03-26 13:00] LABS: D-Dimer 0.26 mg/L FEU (<0.60); Magnesium 1.9 mg/dL (1.6-2.3); Partial Thromboplastin Time 23.3 sec (22.0-30.0); Potassium 5.9 mmol/L (3.5-5.1); Prothrombin Time 10.4 sec (9.0-12.0)
--- NOTE | 2020-03-26 13:08 | XR ---
EXAMINATION TYPE: XR chest 2V DATE OF EXAM: 03/26/2020 COMPARISON: 01/12/2020 HISTORY: 85-year-old female difficulty breathing, shortness of breath TECHNIQUE: AP and lateral views FINDINGS: Left anterior chest wall pacemaker generator with right atrial and right ventricular leads. Heart mil dly enlarged. Diffuse interstitial prominence. Trace effusions and some patchy posterior basilar opac ity. IMPRESSION: 1. Cardiomegaly with interstitial/vascular prominence. Correlate for CHF with mild pulmonary vascular congestion. 2. Trace effusions with adjacent atelectasis and/or consolidation.
[2020-03-26 17:26] LABS: Glucose,Whole Blood 251 mg/dL (75-99)
[2020-03-26] MEDS: NITROGLYCERIN OINT 1 INCH/GM PACKET TOPICAL SCH ×2 (17:33→20:58)
[2020-03-26] MEDS: INSULIN ASPART (NovoLOG) 100 UNIT/ML VIAL SQ SCH ×2 (17:34→20:59)
[2020-03-26 20:04] LABS: Glucose,Whole Blood 185 mg/dL (75-99)
[2020-03-26] MEDS: HYDROcodone/APAP 10-325MG 1 EACH TAB PO PRN (20:57)
[2020-03-26] MEDS: GLIMEPIRIDE 2 MG TAB PO SCH (20:57)
[2020-03-26] MEDS: VERAPAMIL 80 MG TAB PO SCH (20:58)
[2020-03-26] MEDS: FUROSEMIDE 10 MG/ML 4 ML VIAL IV SCH (20:58)
[2020-03-26] MEDS: FAMOTIDINE 20 MG TAB PO SCH (20:58)
[2020-03-26] MEDS: APIXABAN 5 MG TAB PO SCH (20:58)
[2020-03-26] MEDS: AMIODARONE 100 MG TAB PO SCH (21:19)
[2020-03-26] MEDS: DOXYCYCLINE 100 MG in SODIUM CHLORIDE 0.9% 100 ML IVPB SCH (21:19)
--- NOTE | 2020-03-26 21:20 | P.HPIM ---
History of Present Illness This is a pleasant 85 years old female with past medical history of chronic heart failure, atrial fibrillation on Eliquis, COPD, asthma, diabetes mellitus, hypertension, hyperlipidemia, chronic back pain with compression fracture of T8. She follows with Dr. Malone her dope worker and Dr. Gibson her privacy specialist. She is a patient of [facility]. Presents because of dyspnea and coughing. Patient at This morning at 6:30 with dyspnea associated with cough and phlegm which is yellow to dark brown as per patient but no chest pain. No change in urine or bowel habits. No headache or weakness or numbness in extremities However she is complaining of from acute low back pain , No history of trauma or falls She denies smoking, alcohol or illicit tracts She is saturating 98% on 2 L oxygen, rest of vitals are stable and patient is afebrile. Labs showing leukocytosis of 20.1 K, hemoglobin 9.1, platelets 485, d-dimer is negative at 0.26, INR is normal at 1.0, sodium 134, potassium slightly elevated at 5.9 but normal creatinine of 0.89, glucose is ranging between 185-to 51, nor urine analysis. EKG showing ventricular paced rhythm with prolonged QTc at 518, no significant ST-T changes. Chest x-ray: Vascular congestion suspicious for CHF with pleural effusion and adjacent atelectasis/consolidation On admission patient received some fluids but R placed on Lasix 40 mg 3 times a day. Echocardiogram urinary this year 10/2019 showed ejection fraction of 55-60% with severe concentric left ventricular hypertrophy, with severe mitral and tricuspid regurgitation Review of Systems CONSTITUTIONAL: No fever, no malaise, no fatigue. HEENT: No recent visual problems or hearing problems. Denied any sore throat. CARDIOVASCULAR: no palpitations, no syncope. PULMONARY: no hemoptysis. No chest pain GASTROINTESTINAL: No diarrhea, no nausea, no vomiting, no abdominal pain. Normoactive bowel sounds. NEUROLOGICAL: No headaches, no weakness, no numbness. HEMATOLOGICAL: Denies any bleeding or petechiae. GENITOURINARY: Denies any burning micturition, frequency, or urgency. MUSCULOSKELETAL/RHEUMATOLOGICAL: Denies any joint pain, swelling, or any muscle pain. ENDOCRINE: Denies any polyuria or polydipsia. Past Medical History Past Medical History: Atrial Fibrillation, Asthma, Chest Pain / Angina, Heart Failure, COPD, Diabetes Mellitus, GERD/Reflux, Hyperlipidemia, Hypertension, Myocardial Infarction ([place]), Osteoarthritis (OA), Pneumonia Additional Past Medical History / Comment(s): Pt admitted to [facility] on 09/04/19 fall with compression fracture T8-chronic back pain since, acute kidney injury and acute pancreatitis. Other hx; Afib RVR, NIDDM type II, neuropathy bilateral feet, arthritis multiple joints, osteoporosis, chronic anemia, falls, 2013 shingelles Last Myocardial Infarction Date:: 07/16/11 History of Any Multi-Drug Resistant Organisms: None Reported Past Surgical History: Appendectomy, Breast Surgery, Heart Catheterization, Pacemaker, Tubal Ligation Additional Past Surgical History / Comment(s): 02/2011 cardiac cath-normal, benign L breast lumpectomy, bronchoscopy, EGD/colonoscopy, bilateral cataract removals, 2010 VATS L lung d/t fibrotic lung changes. Past Anesthesia/Blood Transfusion Reactions: No Reported Reaction Additional Past Anesthesia/Blood Transfusion Reaction / Comment(s): Pt has received blood in past without reaction Type of Cardiac Device: Permanent Pacemaker Device Placement Date:: NOVEMBER 28 2017 Past Psychological History: No Psychological Hx Reported, Depression Additional Psychological History / Comment(s): . She resides alone in an apartment at [facility]. She uses a walker to ambulate. She has a nebulizer and glucometer. She no longer drives. Her family takes her to [place]. Smoking Status: Never smoker Past Alcohol Use History: Rare Past Drug Use History: None Reported - Past Family History Sister(s) Family Medical History: Cancer Additional Family Medical History / Comment(s): breast CA Mother History Unknown: Yes Family Medical History: No Reported History Additional Family Medical History / Comment(s): from car accident no other hx known Father History Unknown: Yes Family Medical History: No Reported History Additional Family Medical History / Comment(s): committed suicide Daughter(s) Family Medical History: Cancer Additional Family Medical History / Comment(s): breast CA Medications and Allergies Home Medications Medication Instructions Recorded Confirmed Type Apixaban [Eliquis] 5 mg PO BID 11/24/14 03/26/20 History Glimepiride [Amaryl] 2 mg PO BID 06/07/15 03/26/20 History Nadolol [Corgard] 40 mg PO HS 05/20/16 03/26/20 History Amiodarone [Cordarone] 100 mg PO HS 11/27/17 03/26/20 History Omeprazole 40 mg PO DAILY 06/10/18 03/26/20 History Verapamil [Isoptin] 80 mg PO BID 06/10/18 03/26/20 History Fluticasone/Salmeterol [Advair 1 puff INHALATION RT-BID 06/03/19 03/26/20 History 500-50 Diskus] predniSONE See Taper PO DIRECTED 09/26/19 03/26/20 History HYDROcodone/APAP 5-325MG [[place] 1 tab PO Q6H PRN #12 tab 10/02/19 03/26/20 Rx 5-325] Furosemide [Lasix] 40 mg PO DAILY 10/22/19 03/26/20 History Potassium Chloride 10 meq PO DAILY 10/22/19 03/26/20 History Baclofen 10 - 20 mg PO HS PRN 03/26/20 03/26/20 History Famotidine [Pepcid] 20 mg PO DAILY PRN 03/26/20 03/26/20 History Furosemide [Lasix] 40 mg PO DAILY 03/26/20 03/26/20 History HYDROcodone/APAP 10-325MG [[place] 1 tab PO Q4H PRN 03/26/20 03/26/20 History 10-325] Levalbuterol Nebulized [Xopenex 1.25 mg INHALATION RT-QID PRN 03/26/20 03/26/20 History Nebulized] Allergies Allergy/AdvReac Type Severity Reaction Status Date / Time diltiazem Allergy Itching Verified 03/26/20 16:03 morphine AdvReac Confusion Verified 03/26/20 16:03 Physical Exam Vitals: Vital Signs Temp Pulse Pulse Resp BP BP Pulse Ox 03/26/20 17:16 97.5 F L 74 16 147/71 98 03/26/20 16:00 70 18 142/73 98 03/26/20 15:30 70 18 139/74 100 03/26/20 15:00 70 16 120/97 100 03/26/20 14:30 70 18 131/74 100 03/26/20 14:00 70 16 111/70 100 03/26/20 13:08 70 03/26/20 13:00 72 18 123/68 100 03/26/20 12:30 70 18 119/72 100 03/26/20 11:53 98.1 F 71 22 132/70 95 Intake and Output 03/26/20 03/26/20 03/26/20 06:59 14:59 22:59 Other: # Voids 1 Weight 61.235 kg 61.235 kg GENERAL: The patient is alert and oriented x3, not in any acute distress. Well developed, well nourished. HEENT: Pupils are round and equally reacting to light. EOMI. No scleral icterus. No conjunctival pallor. Normocephalic, atraumatic. No pharyngeal erythema. No thyromegaly. CARDIOVASCULAR: S1 and S2 present. No murmurs, rubs, or gallops. -PULMONARY: Chest is clear to auscultation, bilateral basal crepitation and scattered wheezing ABDOMEN: Soft, nontender, nondistended, normoactive bowel sounds. No palpable organomegaly. MUSCULOSKELETAL: No joint swelling or deformity. EXTREMITIES: No cyanosis, clubbing, or pedal edema. NEUROLOGICAL: Gross neurological examination did not reveal any focal deficits. SKIN: No rashes. No petechiae Results CBC & Chem 7: 03/26/20 12:12 03/26/20 12:12 Labs: Abnormal Lab Results - Last 24 Hours (Table) 03/26/20 03/26/20 03/26/20 Range/Units 12:12 12:12 17:25 WBC 20.1 H (3.8-10.6) k/uL RBC 3.06 L (3.80-5.40) m/uL Hgb 9.1 L (11.4-16.0) gm/dL Hct 28.6 L (34.0-46.0) % Plt Count 485 H (150-450) k/uL Neutrophils # 18.0 H (1.3-7.7) k/uL Lymphocytes # 0.8 L (1.0-4.8) k/uL Sodium 134 L (137-145) mmol/L Potassium 5.9 H (3.5-5.1) mmol/L BUN 33 H (7-17) mg/dL Glucose 257 H (74-99) mg/dL POC Glucose (mg/dL) 251 H (75-99) mg/dL Total Protein 5.8 L (6.3-8.2) g/dL Albumin 3.3 L (3.5-5.0) g/dL Thrombosis Risk Factor Assmnt - Choose All That Apply Each Factor Represents 1 point: Abnormal pulmonary function (COPD) Each Risk Factor Represents 3 Points: Age 75 years or older Thrombosis Risk Factor Assessment Total Risk Factor Score: 4 Thrombosis Risk Factor Assessment Level: Moderate Risk Assessment and Plan Assessment: Acute on chronic diastolic CHF with ejection fraction of 55-60% Severe mitral and tricuspid regurgitation Possible acute COPD exacerbation acute on chronic low back pain Atrial fibrillation on Eliquis Diabetes mellitus Hypertension Hyperlipidemia Compression of fracture of T8 Plan: This is a pleasant 85 years old female who presents with CHF and COPD. Continue with diuretic and follow-up creatinine and electrolytes. Also start the patient on steroids, bronchodilators and antibiotic Cardiology and pulmonary consult Labs and medication were reviewed.. Continue same treatment. Continue with symptomatic treatment. Resume home medication. Monitor lytes and vitals. DVT and GI prophylaxis. Further recommendations of the clinical course of the patient DVT prophylaxis Eliquis GI Prophylaxis: Pepcid PT/OT: Pending Prognosis is guarded
[2020-03-26] MEDS: SODIUM CHLORIDE 0.9% 1,000 ML IV SCH (21:21)
[2020-03-27] MEDS: methylPREDNISolone SOD SUCCI 40 MG/ML 1 ML VIAL IV SCH ×4 (00:17→22:32)
[2020-03-27 03:03] LABS: Appearance,Urine Clear (Clear); Bilirubin,Urine Negative (Negative); Blood,Urine Negative (Negative); Color,Urine Colorless; Glucose,Urine (UA) Negative (Negative); Ketones,Urine Negative (Negative); Leukocyte Esterase,Urine Negative (Negative); Nitrite,Urine Negative (Negative); PH, Urine 5.5 (5.0-8.0); Protein,Urine Negative (Negative); Specific Gravity,Urine 1.008 (1.001-1.035); Urobilinogen,Urine <2.0 mg/dL (<2.0)
[2020-03-27] MEDS: FUROSEMIDE 10 MG/ML 4 ML VIAL IV SCH ×2 (03:57→15:25)
[2020-03-27] MEDS: HYDROcodone/APAP 10-325MG 1 EACH TAB PO PRN ×3 (03:57→20:17)
[2020-03-27 06:04] LABS: Glucose,Whole Blood 207 mg/dL (75-99)
[2020-03-27] MEDS: PANTOPRAZOLE 40 MG TABLET PO SCH (06:45)
[2020-03-27] MEDS: INSULIN ASPART (NovoLOG) 100 UNIT/ML VIAL SQ SCH ×4 (06:45→20:17)
[2020-03-27 06:52] LABS: Basophils % (A) 0 %; Eosinophils % (A) 0 %; HCT 30.1 % (34.0-46.0); HGB 9.5 gm/dL (11.4-16.0); Hypochromasia Marked; Lymphocytes # (A) 0.8 k/uL (1.0-4.8); Lymphocytes % (A) 6 %; MCH 29.2 pg (25.0-35.0); MCHC 31.4 g/dL (31.0-37.0); Mean Platelet Volume 7.4; Monocytes # (A) 0.4 k/uL (0-1.0); Monocytes % (A) 3 %; Neutrophils # (A) 12.1 k/uL (1.3-7.7); Neutrophils % (A) 91 %; Platelet Count 478 k/uL (150-450); RBC 3.24 m/uL (3.80-5.40); RDW 14.7 % (11.5-15.5); WBC 13.4 k/uL (3.8-10.6)
[2020-03-27 07:03] LABS: Potassium 4.2 mmol/L (3.5-5.1)
[2020-03-27] MEDS: GLIMEPIRIDE 2 MG TAB PO SCH ×2 (08:29→20:07)
[2020-03-27] MEDS: DOXYCYCLINE 100 MG in SODIUM CHLORIDE 0.9% 100 ML IVPB SCH ×2 (08:29→20:07)
[2020-03-27] MEDS: APIXABAN 5 MG TAB PO SCH ×2 (08:29→20:06)
[2020-03-27] MEDS: NITROGLYCERIN OINT 1 INCH/GM PACKET TOPICAL SCH ×4 (08:29→20:41)
[2020-03-27] MEDS: FAMOTIDINE 20 MG TAB PO SCH (08:29)
[2020-03-27] MEDS: POTASSIUM CHLORIDE ER 10 MEQ TAB.ER.PRT PO SCH (08:29)
[2020-03-27] MEDS: VERAPAMIL 80 MG TAB PO SCH ×2 (08:30→20:07)
[2020-03-27] MEDS: SYMBICORT 160-4.5 MCG INHALER INHALATION SCH ×2 (11:47→19:42)
[2020-03-27 12:10] LABS: Glucose,Whole Blood 190 mg/dL (75-99)
--- NOTE | 2020-03-27 12:53 | P.CNPUL ---
History of Present Illness Consult date: 03/27/20 Reason for consult: dyspnea, cough Chief complaint: Dyspnea, productive cough History of present illness: This is a 85-year-old white female patient of Dr. [facility], who also follows with Dr. Malone in the pulmonary clinic, with known history of mild intermittent bronchial asthma, chronic CHF, diabetes mellitus, GERD/reflux, hypertension hyperlipidemia, previous episode of myocardial infarction, chronic AAdam Doty, resides at [facility], who presented to the emergency department on 03/26/2020 with complaints of worsening shortness of breath, chest congestion, and productive cough with yellow colored sputum for a period of one week. Patient's visiting nurses yesterday evaluated the patient and decided to call 911 in view of her worsening dyspnea. Patient denied any chest pain, denied any hemoptysis, denied any fever or chills, denies any COVID 19 exposure. No swelling in bilateral extremities, no complaints of chest pain. Chest x-ray showed cardiomegaly with interstitial and vascular prominence correlating 4 CHF with mild pulmonary of S2 congestion, trace pleural effusions with adjacent atelectasis. Admission lab work showed white blood cell count of 20.1, hemoglobin was 9.1, d-dimer was normal at 0.26, sodium is 134, potassium is 5.9, chloride is 103, CO2 is 24, B1 is 33, creatinine 0.89, troponin is negative at 0.020, LFTs are within normal limits, lactic acid is 1.6, proBNP is 14,000, urinalysis was negative, coronavirus PCR was negative. Patient has been afebrile, vital signs have been stable, she is satting 97-90% on 2 L. Physical exam reveals diffuse rhonchi and wheezing. She was started on IV Lasix at 40 mg every 12 hours, antibiotics in form of doxycycline, breathing treatments. EKG showed ventricular paced rhythm. Review of Systems All systems: negative Constitutional: Denies chills, Denies fever Eyes: denies blurred vision, denies pain Ears, nose, mouth and throat: Denies headache, Denies sore throat Cardiovascular: Denies chest pain, Denies shortness of breath Respiratory: Reports cough with sputum, Reports dyspnea, Denies cough Gastrointestinal: Denies abdominal pain, Denies diarrhea, Denies nausea, Denies vomiting Genitourinary: Denies dysuria, Denies hematuria Musculoskeletal: Denies myalgias Integumentary: Denies pruritus, Denies rash Neurological: Denies numbness, Denies weakness Psychiatric: Denies anxiety, Denies depression Endocrine: Denies fatigue, Denies weight change Past Medical History Past Medical History: Atrial Fibrillation, Asthma, Chest Pain / Angina, Heart Failure, COPD, Diabetes Mellitus, GERD/Reflux, Hyperlipidemia, Hypertension, Myocardial Infarction ([place]), Osteoarthritis (OA), Pneumonia Additional Past Medical History / Comment(s): Pt admitted to [facility] on 09/04/19 fall with compression fracture T8-chronic back pain since, acute kidney injury and acute pancreatitis. Other hx; Afib RVR, NIDDM type II, neuropathy bilateral feet, arthritis multiple joints, osteoporosis, chronic anemia, falls, 2013 shingelles Last Myocardial Infarction Date:: 07/16/11 History of Any Multi-Drug Resistant Organisms: None Reported Past Surgical History: Appendectomy, Breast Surgery, Heart Catheterization, Pacemaker, Tubal Ligation Additional Past Surgical History / Comment(s): 02/2011 cardiac cath-normal, benign L breast lumpectomy, bronchoscopy, EGD/colonoscopy, bilateral cataract removals, 2010 VATS L lung d/t fibrotic lung changes. Past Anesthesia/Blood Transfusion Reactions: No Reported Reaction Additional Past Anesthesia/Blood Transfusion Reaction / Comment(s): Pt has received blood in past without reaction Type of Cardiac Device: Permanent Pacemaker Device Placement Date:: NOVEMBER 28 2017 Past Psychological History: No Psychological Hx Reported, Depression Additional Psychological History / Comment(s): . She resides alone in an apartment at [facility]. She uses a walker to ambulate. She has a nebulizer and glucometer. She no longer drives. Her family takes her to [place]. Smoking Status: Never smoker Past Alcohol Use History: Rare Past Drug Use History: None Reported - Past Family History Sister(s) Family Medical History: Cancer Additional Family Medical History / Comment(s): breast CA Mother History Unknown: Yes Family Medical History: No Reported History Additional Family Medical History / Comment(s): from car accident no other hx known Father History Unknown: Yes Family Medical History: No Reported History Additional Family Medical History / Comment(s): committed suicide Daughter(s) Family Medical History: Cancer Additional Family Medical History / Comment(s): breast CA Medications and Allergies Home Medications Medication Instructions Recorded Confirmed Type Apixaban [Eliquis] 5 mg PO BID 11/24/14 03/26/20 History Glimepiride [Amaryl] 2 mg PO BID 06/07/15 03/26/20 History Nadolol [Corgard] 40 mg PO HS 05/20/16 03/26/20 History Amiodarone [Cordarone] 100 mg PO HS 11/27/17 03/26/20 History Omeprazole 40 mg PO DAILY 06/10/18 03/26/20 History Verapamil [Isoptin] 80 mg PO BID 06/10/18 03/26/20 History Fluticasone/Salmeterol [Advair 1 puff INHALATION RT-BID 06/03/19 03/26/20 History 500-50 Diskus] predniSONE See Taper PO DIRECTED 09/26/19 03/26/20 History HYDROcodone/APAP 5-325MG [[place] 1 tab PO Q6H PRN #12 tab 10/02/19 03/26/20 Rx 5-325] Furosemide [Lasix] 40 mg PO DAILY 10/22/19 03/26/20 History Potassium Chloride 10 meq PO DAILY 10/22/19 03/26/20 History Baclofen 10 - 20 mg PO HS PRN 03/26/20 03/26/20 History Famotidine [Pepcid] 20 mg PO DAILY PRN 03/26/20 03/26/20 History Furosemide [Lasix] 40 mg PO DAILY 03/26/20 03/26/20 History HYDROcodone/APAP 10-325MG [[place] 1 tab PO Q4H PRN 03/26/20 03/26/20 History 10-325] Levalbuterol Nebulized [Xopenex 1.25 mg INHALATION RT-QID PRN 03/26/20 03/26/20 History Nebulized] Allergies Allergy/AdvReac Type Severity Reaction Status Date / Time diltiazem Allergy Itching Verified 03/26/20 16:03 morphine AdvReac Confusion Verified 03/26/20 16:03 Physical Exam Vitals: Vital Signs Temp Pulse Pulse Resp BP BP Pulse Ox 03/27/20 11:55 97.6 F 73 18 114/62 98 03/27/20 08:00 97.6 F 80 16 137/73 97 03/27/20 04:14 98.0 F 76 22 137/78 98 03/27/20 00:48 98.2 F 72 20 130/70 100 03/26/20 22:54 98.3 F 75 22 134/72 100 03/26/20 17:16 97.5 F L 74 16 147/71 98 03/26/20 16:00 70 18 142/73 98 03/26/20 15:30 70 18 139/74 100 03/26/20 15:00 70 16 120/97 100 03/26/20 14:30 70 18 131/74 100 03/26/20 14:00 70 16 111/70 100 03/26/20 13:08 70 03/26/20 13:00 72 18 123/68 100 Intake and Output 03/26/20 03/27/20 03/27/20 22:59 06:59 14:59 Intake Total 100 180 Output Total 600 Balance -500 180 Intake: Intake, IV Titration 100 Amount Doxycycline 100 mg In 100 Sodium Chloride 0.9% 100 ml @ 100 mls/hr IVPB Q12HR [facility] Rx#:[id number] Oral 180 Output: Urine 600 Other: # Voids 1 Weight 61.235 kg 60 kg GENERAL EXAM: Alert, very pleasant, 85-year-old white female, on 2 L of oxygen a pulse ox of 97% comfortable in no apparent distress. HEAD: Normocephalic/atraumatic. EYES: Normal reaction of pupils, equal size. Conjunctiva pink, sclera white. NOSE: Clear with pink turbinates. THROAT: No erythema or exudates. NECK: No masses, no JVD, no thyroid enlargement, no adenopathy. CHEST: No chest wall deformity. Symmetrical expansion. LUNGS: Equal air entry with diffuse rhonchi and wheezing CVS: Irregular rate and rhythm, normal S1 and S2, no gallops, no murmurs, no rub s ABDOMEN: Soft, nontender. No hepatosplenomegaly, normal bowel sounds, no guarding or rigidity. EXTREMITIES: No clubbing, very mild right ankle edema, patient states is chronic, right leg is always slightly more swollen than the left leg, patient is on chronic anticoagulation with Eliquis no cyanosis, 2+ pulses and upper and lower extremities. MUSCULOSKELETAL: Muscle strength and tone normal. SPINE: No scoliosis or deformity SKIN: No rashes CENTRAL NERVOUS SYSTEM: Alert and oriented -3. No focal deficits, tone is normal in all 4 extremities. PSYCHIATRIC: Alert and oriented -3. Appropriate affect. Intact judgment and insight. Results - Laboratory Findings CBC and BMP: 03/27/20 06:22 03/27/20 06:22 PT/INR, D-dimer PT 10.4 sec (9.0-12.0) 03/26/20 12:12 INR 1.0 (<1.2) 03/26/20 12:12 D-Dimer 0.26 mg/L FEU (<0.60) 03/26/20 12:12 Abnormal lab findings: Abnormal Labs 03/26/20 03/26/20 03/26/20 12:12 12:12 17:25 WBC 20.1 H RBC 3.06 L Hgb 9.1 L Hct 28.6 L Plt Count 485 H Neutrophils # 18.0 H Lymphocytes # 0.8 L Sodium 134 L Potassium 5.9 H Chloride Carbon Dioxide BUN 33 H Glucose 257 H POC Glucose (mg/dL) 251 H Total Protein 5.8 L Albumin 3.3 L 03/26/20 03/27/20 03/27/20 20:02 06:02 06:22 WBC 13.4 H RBC 3.24 L Hgb 9.5 L Hct 30.1 L Plt Count 478 H Neutrophils # 12.1 H Lymphocytes # 0.8 L Sodium Potassium Chloride Carbon Dioxide BUN Glucose POC Glucose (mg/dL) 185 H 207 H Total Protein Albumin 03/27/20 03/27/20 06:22 12:09 WBC RBC Hgb Hct Plt Count Neutrophils # Lymphocytes # Sodium Potassium Chloride 96 L Carbon Dioxide 32 H BUN 26 H Glucose 206 H POC Glucose (mg/dL) 190 H Total Protein Albumin - Diagnostic Findings Chest x-ray: report reviewed, image reviewed Additional studies: EKG reviewed Assessment and Plan Plan: Assessment: #1. Dyspnea related to acute exacerbation of chronic congestive heart failure with preserved left ventricular systolic function , with most recent echocardiogram completed in October 2019 with an ejection fraction of 55-60% with severe concentric LVH and severe mitral and tricuspid regurgitation #2. Acute exacerbation of mild intermittent chronic bronchial asthma #3. Chronic A. fib on Eliquis, post permanent pacemaker implantation #4. Diabetes mellitus type 2 #5. GERD/reflux #6. Hypertension #7. Hyperlipidemia #8. Osteoarthritis #9. Osteoporosis #10. Chronic anemia #11. Anxiety depression #12. History of Enterococcus faecalis bacteremia and possibility of T8 discitis #13. Chronic back pain with compression fracture of T8 Plan: Agree with current medical treatment, continue IV steroids, IV Lasix, antibiotics, breathing treatments. Vital signs are stable, coronavirus ECR was negative, chest x-ray has been reviewed, COVID 19 PCR was negative, no acute events overnight. Daily electrolytes, and renal profile, we will continue to follow. I performed a history & physical examination of the patient and discussed their management with my nurse practitioner, Tory Aquino. I reviewed the nurse practitioner's note and agree with the documented findings and plan of care. Lung sounds are positive for diffuse rhonchi and wheezes. The findings and the impression was discussed with the patient. I attest to the documentation by the nurse practitioner. Time with Patient: Greater than 30
--- NOTE | 2020-03-27 13:12 | ECHOF ---
Referral Reason:heart failure MEASUREMENTS -------- HEIGHT: 157.5 cm WEIGHT: 59.9 kg BP: 137/78 RVIDd: 3.6 cm (< 3.3) IVSd: 2.0 cm (0.6 - 1.1) LVIDd: 3.8 cm (3.9 - 5.3) LVPWd: 2.0 cm (0.6 - 1.1) IVSs: 2.3 cm LVIDs: 2.2 cm LVPWs: 2.1 cm LAESV Index (A-L): 103.89 ml/m Ao Diam: 3.7 cm (2.0 - 3.7) AV Cusp: 2.2 cm (1.5 - 2.6) MV EXCURSION: 14.230 mm (> 18.000) MV EF SLOPE: 73 mm/s (70 - 150) EPSS: 0.3 cm AR PHT: 320 ms RAP: 5.00 mmHg RVSP: 104.41 mmHg FINDINGS -------- This was a technically difficult study with suboptimal views. The left ventricular size is normal. There is severe concentric left ventricular hypertrophy. Ove rall left ventricular systolic function is low-normal with, an EF between 50 - 55 %. Mitral Doppler inflow pattern suggests diastolic filling abnormality {E/E'}. The right ventricle is mild to moderately enlarged. LA is severely dilated >40 ml/m2 The right atrium is mildly enlarged. xx ml of Lumason was utilized for enhancement of images. Interatrial and interventricular septum intact. There is mild aortic valve sclerosis. There is mild aortic regurgitation. There is no evidence of aortic stenosis. Severe mitral annular calcification present. Severe mitral regurgitation is present. Severe tricuspid regurgitation present. There is severe pulmonary hypertension. The right ventric ular systolic pressure, as measured by Doppler, is 104.41mmHg. Trace/mild (physiologic) pulmonic regurgitation. The aortic root size is normal. There is no pericardial effusion. CONCLUSIONS -------- 1. There is severe concentric left ventricular hypertrophy. 2. Overall left ventricular systolic function is low-normal with, an EF between 50 - 55 %. 3. Mitral Doppler inflow pattern suggest diastolic filling abnormality {E/E'}. 4. The right ventricle is mild to moderately enlarged. 5. LA is severely dilated >40 ml/m2 6. The right atrium is mildly enlarged. 7. There is mild aortic valve sclerosis. 8. There is mild aortic regurgitation. 9. Severe mitral annular calcification present. 10. Severe mitral regurgitation is present. 11. Severe tricuspid regurgitation present. 12. There is severe pulmonary hypertension. 13. Trace/mild (physiologic) pulmonic regurgitation. 14. There is no pericardial effusion. BOX FABRICATOR: Rima Garcia RDCS
--- NOTE | 2020-03-27 13:52 | P.PN ---
Subjective This is a pleasant 85 years old female with past medical history of chronic heart failure, atrial fibrillation on Eliquis, COPD, asthma, diabetes mellitus, hypertension, hyperlipidemia, chronic back pain with compression fracture of T8. She follows with Dr. Malone her residential concierge and Dr. Gibson her termite treater helper. She is a patient of [facility]. Presents because of dyspnea and coughing. Patient at This morning at 6:30 with dyspnea associated with cough and phlegm which is yellow to dark brown as per patient but no chest pain. No change in urine or bowel habits. No headache or weakness or numbness in extremities However she is complaining of from acute low back pain , No history of trauma or falls She denies smoking, alcohol or illicit tracts She is saturating 98% on 2 L oxygen, rest of vitals are stable and patient is afebrile. Labs showing leukocytosis of 20.1 K, hemoglobin 9.1, platelets 485, d-dimer is negative at 0.26, INR is normal at 1.0, sodium 134, potassium slightly elevated at 5.9 but normal creatinine of 0.89, glucose is ranging between 185-to 51, nor urine analysis. EKG showing ventricular paced rhythm wi th prolonged QTc at 518, no significant ST-T changes. Chest x-ray: Vascular congestion suspicious for CHF with pleural effusion and adjacent atelectasis/consolidation On admission patient received some fluids but R placed on Lasix 40 mg 3 times a day. Echocardiogram urinary this year 10/2019 showed ejection fraction of 55-60% with severe concentric left ventricular hypertrophy, with severe mitral and tricuspid regurgitation 03/27/2020 Patient is awake and alert, she is breathing easier today although she still complaining of from coughing and dyspnea however she can talk more freely.she saturating 97 2 L oxygen via nasal cannula, rest of vital signs stable. She denies abdominal pain or diarrhea actually she has constipation and laxative are provided. Labs show an improving leukocytosis down to 13.4 K, echocardiogram done todayshowed ejection fraction of 50-55% with severe LVH, and severe mitral tricuspid regurgitation pulmonary input is appreciated. Cardiology consulted. Patient is currently on steroids with Solu-Medrol, doxycycline and Lasix Review of Systems CONSTITUTIONAL: No fever, no malaise, no fatigue. HEENT: No recent visual problems or hearing problems. Denied any sore throat. CARDIOVASCULAR: no palpitations, no syncope. PULMONARY: no hemoptysis. No chest pain GASTROINTESTINAL: No diarrhea, no nausea, no vomiting, no abdominal pain. Normoactive bowel sounds. NEUROLOGICAL: No headaches, no weakness, no numbness. HEMATOLOGICAL: Denies any bleeding or petechiae. GENITOURINARY: Denies any burning micturition, frequency, or urgency. MUSCULOSKELETAL/RHEUMATOLOGICAL: Denies any joint pain, swelling, or any muscle pain. ENDOCRINE: Denies any polyuria or polydipsia. Objective - Vital Signs Vital signs: Vital Signs Temp 97.6 F 03/27/20 11:55 Pulse 73 03/27/20 12:00 Resp 18 03/27/20 12:00 BP 114/62 03/27/20 11:55 Pulse Ox 98 03/27/20 11:55 Intake & Output 03/26/20 03/27/20 03/27/20 18:59 06:59 18:59 Intake Total 100 180 Output Total 600 Balance -500 180 Weight 61.235 kg 60 kg 60 kg Intake: Intake, IV Titration 100 Amount Doxycycline 100 mg In 100 Sodium Chloride 0.9% 100 ml @ 100 mls/hr IVPB Q12HR [facility] Rx#:[id number] Oral 180 Output: Urine 600 Other: # Voids 1 - Exam GENERAL: The patient is alert and oriented x3, not in any acute distress. Well developed, well nourished. HEENT: Pupils are round and equally reacting to light. EOMI. No scleral icterus. No conjunctival pallor. Normocephalic, atraumatic. No pharyngeal erythema. No thyromegaly. CARDIOVASCULAR: S1 and S2 present. No murmurs, rubs, or gallops. -PULMONARY: Chest is clear to auscultation, no wheezing. bilateral basal crepitation ABDOMEN: Soft, nontender, nondistended, normoactive bowel sounds. No palpable organomegaly. MUSCULOSKELETAL: No joint swelling or deformity. EXTREMITIES: No cyanosis, clubbing, or pedal edema. NEUROLOGICAL: Gross neurological examination did not reveal any focal deficits. SKIN: No rashes. no petechiae. - Labs CBC & Chem 7: 03/27/20 06:22 03/27/20 06:22 Labs: Abnormal Lab Results - Last 24 Hours (Table) 03/26/20 03/26/20 03/27/20 Range/Units 17:25 20:02 06:02 WBC (3.8-10.6) k/uL RBC (3.80-5.40) m/uL Hgb (11.4-16.0) gm/dL Hct (34.0-46.0) % Plt Count (150-450) k/uL Neutrophils # (1.3-7.7) k/uL Lymphocytes # (1.0-4.8) k/uL Chloride (98-107) mmol/L Carbon Dioxide (22-30) mmol/L BUN (7-17) mg/dL Glucose (74-99) mg/dL POC Glucose (mg/dL) 251 H 185 H 207 H (75-99) mg/dL 03/27/20 03/27/20 03/27/20 Range/Units 06:22 06:22 12:09 WBC 13.4 H (3.8-10.6) k/uL RBC 3.24 L (3.80-5.40) m/uL Hgb 9.5 L (11.4-16.0) gm/dL Hct 30.1 L (34.0-46.0) % Plt Count 478 H (150-450) k/uL Neutrophils # 12.1 H (1.3-7.7) k/uL Lymphocytes # 0.8 L (1.0-4.8) k/uL Chloride 96 L (98-107) mmol/L Carbon Dioxide 32 H (22-30) mmol/L BUN 26 H (7-17) mg/dL Glucose 206 H (74-99) mg/dL POC Glucose (mg/dL) 190 H (75-99) mg/dL Assessment and Plan Assessment: Acute on chronic diastolic CHF with ejection fraction of 50-55% Severe mitral and tricuspid regurgitation Possible acute COPD exacerbation acute on chronic low back pain Atrial fibrillation on Eliquis Diabetes mellitus Hypertension Hyperlipidemia Compression of fracture of T8 Plan: This is a pleasant 85 years old female who presents with CHF and COPD. Continue with diuretic and follow-up creatinine and electrolytes. Also start the patient on steroids, bronchodilators and antibiotic Cardiology and pulmonary consult Labs and medication were reviewed.. Continue same treatment. Continue with symptomatic treatment. Resume home medication. Monitor lytes and vitals. DVT and GI prophylaxis. Further recommendations of the clinical course of the patient DVT prophylaxis Eliquis GI Prophylaxis: Pepcid PT/OT: Pending Prognosis is guarded
[2020-03-27] MEDS: SODIUM CHLORIDE 0.9% 1,000 ML IV SCH (13:57)
[2020-03-27 16:46] LABS: Glucose,Whole Blood 205 mg/dL (75-99)
[2020-03-27] MEDS: AMIODARONE 100 MG TAB PO SCH (20:06)
--- NOTE | 2020-03-27 20:14 | CONS ---
CONSULTATION Mrs. Jane is an 85-year-old elderly lady who sees Dr. Gibson in the outpatient setting. She has underlying sick sinus syndrome and has a permanent pacemaker. She came into the hospital mainly with complaints of increasing shortness of breath and also had some coughing, and there was a question of pneumonia. After arrival, chest x- ray suggested possibility of pneumonia. She has history of chronic atrial fibrillation, has been on Apixaban 5 mg b.i.d. She has diabetes, hypertension, hyperlipidemia and sick sinus syndrome with an underlying permanent pacemaker. At the time of my evaluation, her breathing is somewhat better. She still has some wheezing. She is on steroids and antibiotics. I am recommending that we diurese her as well. She probably has a combination of diastolic heart failure and also underlying pulmonary hypertension. PAST MEDICAL HISTORY: 1. History of atrial fibrillation, chronic, persistent, with underlying sick sinus syndrome and a permanent pacemaker. 2. Type 2 diabetes mellitus. 3. Hypertension. 4. Hyperlipidemia. MEDICATIONS: Medications at home include verapamil SR 80 mg daily, amiodarone 100 mg daily, Corgard 40 mg daily, omeprazole, Apixaban 5 mg b.i.d., Amaryl 2 mg daily. She also takes some Lasix and potassium supplements. ALLERGIES: DILTIAZEM AND MORPHINE. PHYSICAL EXAMINATION: On examination, her blood pressure is 118/70. Pulse rate is 70 per minute. HEENT unremarkable. Fundus was not examined by me. NECK: Supple. There is JVD of 1 cm. No carotid bruit. Heart exam reveals S1, S2 with a short systolic murmur at the base. Lungs reveal diminished air entry, scattered rhonchi. There are fine rales over both bases. Abdomen is soft, nontender. Lower extremities reveal normal diminished pulses. Central nervous system is grossly within normal limits. IMPRESSION: 1. Exacerbation of probably diastolic heart failure. 2. Probable pulmonary hypertension. 3. Chronic obstructive pulmonary disease with exacerbation. 4. Cannot exclude pneumonia. RECOMMENDATIONS: I am recommending that we do cautious diuresis and continue steroids and antibiotics as advised. Based on clinical course, I will make further recommendations. Thank you very much for the consult. MMODL / IJN: [id number] /
[2020-03-27 20:29] LABS: Glucose,Whole Blood 145 mg/dL (75-99)
[2020-03-28] MEDS: HYDROcodone/APAP 10-325MG 1 EACH TAB PO PRN ×2 (03:53→12:28)
[2020-03-28] MEDS: FUROSEMIDE 10 MG/ML 4 ML VIAL IV SCH (05:15)
[2020-03-28 06:28] LABS: Glucose,Whole Blood 262 mg/dL (75-99)
[2020-03-28] MEDS: PANTOPRAZOLE 40 MG TABLET PO SCH (06:30)
[2020-03-28] MEDS: INSULIN ASPART (NovoLOG) 100 UNIT/ML VIAL SQ SCH ×4 (06:30→20:50)
[2020-03-28 07:09] LABS: Basophils % (A) 0 %; Eosinophils # (A) 0.1 k/uL (0-0.7); Eosinophils % (A) 1 %; HGB 9.1 gm/dL (11.4-16.0); Hypochromasia Moderate; Lymphocytes # (A) 0.7 k/uL (1.0-4.8); Lymphocytes % (A) 5 %; MCH 28.7 pg (25.0-35.0); MCHC 31.5 g/dL (31.0-37.0); MCV 91.2 fL (80.0-100.0); Mean Platelet Volume 7.7; Monocytes # (A) 0.6 k/uL (0-1.0); Monocytes % (A) 4 %; Neutrophils % (A) 90 %; Platelet Count 465 k/uL (150-450); RBC 3.18 m/uL (3.80-5.40); RDW 14.7 % (11.5-15.5); WBC 14.4 k/uL (3.8-10.6)
[2020-03-28 07:22] LABS: Potassium 3.8 mmol/L (3.5-5.1)
[2020-03-28] MEDS: SYMBICORT 160-4.5 MCG INHALER INHALATION SCH ×2 (07:59→19:44)
[2020-03-28] MEDS: POTASSIUM CHLORIDE ER 10 MEQ TAB.ER.PRT PO SCH (09:35)
[2020-03-28] MEDS: APIXABAN 5 MG TAB PO SCH ×2 (09:35→20:09)
[2020-03-28] MEDS: VERAPAMIL 80 MG TAB PO SCH ×2 (09:35→20:09)
[2020-03-28] MEDS: GLIMEPIRIDE 2 MG TAB PO SCH ×2 (09:35→20:09)
[2020-03-28] MEDS: NITROGLYCERIN OINT 1 INCH/GM PACKET TOPICAL SCH ×5 (09:36→20:01)
[2020-03-28] MEDS: FUROSEMIDE 40 MG TAB PO SCH ×2 (09:36→15:47)
[2020-03-28] MEDS: methylPREDNISolone SOD SUCCI 40 MG/ML 1 ML VIAL IV SCH ×3 (09:37→22:34)
[2020-03-28 11:44] LABS: Glucose,Whole Blood 175 mg/dL (75-99)
[2020-03-28] MEDS: DOXYCYCLINE 100 MG in SODIUM CHLORIDE 0.9% 100 ML IVPB SCH ×2 (12:29→20:30)
--- NOTE | 2020-03-28 14:13 | P.PN ---
Subjective Progress Note Date: 03/28/20 Principal diagnosis: Acute exacerbation of diastolic congestive heart failure, mild intermittent asthma This is a 85-year-old white female patient of Dr. Royal Beaver, who also follows with Dr. Malone in the pulmonary clinic, with known history of mild intermittent bronchial asthma, chronic CHF, diabetes mellitus, GERD/reflux, hypertension hyperlipidemia, previous episode of myocardial infarction, chronic A. mary Doty, resides at [facility], who presented to the emergency department on 03/26/2020 with complaints of worsening shortness of breath, chest congestion, and productive cough with yellow colored sputum for a period of one week. Patient's visiting nurses yesterday evaluated the patient and decided to call 911 in view of her worsening dyspnea. Patient denied any chest pain, denied any hemoptysis, denied any fever or chills, denies any COVID 19 exposure. No swelling in bilateral extremities, no complaints of chest pain. Chest x-ray showed cardiomegaly with interstitial and vascular prominence correlating 4 CHF with mild pulmonary of S2 congestion, trace pleural effusions with adjacent atelectasis. Admission lab work showed white blood cell count of 20.1, hemoglobin was 9.1, d-dimer was normal at 0.26, sodium is 134, potassium is 5.9, chloride is 103, CO2 is 24, B1 is 33, creatinine 0.89, troponin is negative at 0.020, LFTs are within normal limits, lactic acid is 1.6, proBNP is 14,000, urinalysis was negative, coronavirus PCR was negative. Patient has been afebrile, vital signs have been stable, she is satting 97-90% on 2 L. Physical exam reveals diffuse rhonchi and wheezing. She was started on IV Lasix at 40 mg every 12 hours, antibiotics in form of doxycycline, breathing treatments. EKG showed ventricular paced rhythm. The patient is seen today 03/28/2020 in follow-up on the selective care unit. She is awake and alert in no acute distress. Sitting up at the bedside. Breathing a bit easier today compared to yesterday. Maintaining O2 saturations in the 90s on room air. She's afebrile. Hemodynamically stable. Blood cultures reveal no growth. White count 14.4. Hemoglobin 9.1. Sodium 134. Potassium 3.8. Creatinine 1.00. She remains on DuoNeb inhalations, Symbicort, IV Solu-Medrol, oral diuretics. Antibiotics in the form of doxycycline. Anticoagulated with Eliquis. Objective - Vital Signs Vital signs: Vital Signs Temp 98.1 F 03/28/20 08:30 Pulse 71 03/28/20 08:30 Resp 19 03/28/20 08:30 BP 107/65 03/28/20 08:30 Pulse Ox 96 03/28/20 08:30 Intake & Output 03/27/20 03/28/20 03/28/20 18:59 06:59 18:59 Intake Total 859 247 9260 Output Total 1100 600 950 Balance -440 110 130 Weight 60 kg 56.5 kg Intake: IV 10 Invasive Line 2 10 Intake, IV Titration 100 Amount Doxycycline 100 mg In 100 Sodium Chloride 0.9% 100 ml @ 100 mls/hr IVPB Q12HR [facility] Rx#:[id number] Oral 291 [id number] Output: Urine 1100 600 950 Other: Voiding Method Toilet # Voids 1 # Bowel Movements 1 - Exam GENERAL EXAM: Alert, very pleasant, 85-year-old white female, on room air, comfortable in no apparent distress. HEAD: Normocephalic/atraumatic. EYES: Normal reaction of pupils, equal size. Conjunctiva pink, sclera white. NOSE: Clear with pink turbinates. THROAT: No erythema or exudates. NECK: No masses, no JVD, no thyroid enlargement, no adenopathy. CHEST: No chest wall deformity. Symmetrical expansion. LUNGS: Equal air entry with diffuse rhonchi and wheezing CVS: Irregular rate and rhythm, normal S1 and S2, no gallops, no murmurs, no rubs ABDOMEN: Soft, nontender. No hepatosplenomegaly, normal bowel sounds, no guarding or rigidity. EXTREMITIES: No clubbing, very mild right ankle edema, patient states is chronic, right leg is always slightly more swollen than the left leg, patient is on chronic anticoagulation with Eliquis no cyanosis, 2+ pulses and upper and lower extremities. MUSCULOSKELETAL: Muscle strength and tone normal. SPINE: No scoliosis or deformity SKIN: No rashes CENTRAL NERVOUS SYSTEM: No focal deficits, tone is normal in all 4 extremities. PSYCHIATRIC: Alert and oriented -3. Appropriate affect. Intact judgment and insight. - Labs CBC & Chem 7: 03/28/20 06:50 03/28/20 06:50 Labs: Abnormal Lab Results - Last 24 Hours (Table) 03/27/20 03/27/20 03/28/20 Range/Units 16:44 20:03 06:26 WBC (3.8-10.6) k/uL RBC (3.80-5.40) m/uL Hgb (11.4-16.0) gm/dL Hct (34.0-46.0) % Plt Count (150-450) k/uL Neutrophils # (1.3-7.7) k/uL Lymphocytes # (1.0-4.8) k/uL Sodium (137-145) mmol/L Chloride (98-107) mmol/L BUN (7-17) mg/dL Glucose (74-99) mg/dL POC Glucose (mg/dL) 205 H 145 H 262 H (75-99) mg/dL 03/28/20 03/28/20 03/28/20 Range/Units 06:50 06:50 11:43 WBC 14.4 H (3.8-10.6) k/uL RBC 3.18 L (3.80-5.40) m/uL Hgb 9.1 L (11.4-16.0) gm/dL Hct 29.0 L (34.0-46.0) % Plt Count 465 H (150-450) k/uL Neutrophils # 13.0 H (1.3-7.7) k/uL Lymphocytes # 0.7 L (1.0-4.8) k/uL Sodium 134 L (137-145) mmol/L Chloride 95 L (98-107) mmol/L BUN 39 H (7-17) mg/dL Glucose 242 H (74-99) mg/dL POC Glucose (mg/dL) 175 H (75-99) mg/dL Microbiology - Last 24 Hours (Table) 03/26/20 13:40 Blood Culture - Preliminary Blood No Growth after 24 hours Assessment and Plan Assessment: #1. Dyspnea related to acute exacerbation of chronic congestive heart failure with preserved left ventricular systolic function , with most recent echocardiogram completed in October 2019 with an ejection fraction of 55-60% with severe concentric LVH and severe mitral and tricuspid regurgitation #2. Acute exacerbation of mild intermittent chronic bronchial asthma #3. Chronic A. fib on Eliquis, post permanent pacemaker implantation #4. Diabetes mellitus type 2 #5. GERD/reflux #6. Hypertension #7. Hyperlipidemia #8. Osteoarthritis #9. Osteoporosis #10. Chronic anemia #11. Anxiety depression #12. History of Enterococcus faecalis bacteremia and possibility of T8 discitis #13. Chronic back pain with compression fracture of T8 Plan: The patient was seen and evaluated by Dr. Irene She is improving from the pulmonary standpoint Continue with the current treatment plan We'll continue to follow make further recommendations based on her clinical status I, the cosigning physician, performed a history & physical examination of the patient. Lungs sounds with bilateral scattered rhonchi, wheeze. Maintaining good O2 saturations in the 90s on room air. I discussed the assessment and plan of care with my nurse practitioner, Rosario Yanes. I attest to the above note as dictated by her.
[2020-03-28] MEDS: SODIUM CHLORIDE 0.9% 1,000 ML IV SCH (14:36)
[2020-03-28] MEDS: IPRATROPIUM-ALBUTEROL 3 ML NEB INHALATION SCH ×2 (15:59→19:44)
--- NOTE | 2020-03-28 16:18 | PN ---
PROGRESS NOTE Mrs. Jane is comfortable. She is in a paced rhythm, resting comfortably. Denies any chest discomfort. Breathing is easier. Vitals are stable. No JVD. S1, S2 heard normally. Short systolic murmur audible. Lungs reveal decent air entry. Abdomen and lower extremity exam unchanged. The patient has been admitted with some leukocytosis, possibility of infection, pneumonia, but cardiac-springer stable. Continue current medications. Switch her from IV to oral Lasix and based on clinical course I will make further recommendations as necessary. We will see her as needed. MMODL / IJN: [id number] /
[2020-03-28 16:51] LABS: Glucose,Whole Blood 204 mg/dL (75-99)
[2020-03-28] MEDS: AMIODARONE 100 MG TAB PO SCH (20:09)
[2020-03-28 20:40] LABS: Glucose,Whole Blood 235 mg/dL (75-99)
--- NOTE | 2020-03-29 00:15 | P.PN ---
Subjective Progress Note Date: 03/28/20 Principal diagnosis: Acute on chronic diastolic congestive heart failure exacerbation Severe mitral and tricuspid regurgitation Ms. Jane is an 85-year-old female with a past medical history of congestive heart failure, atrial fibrillation on Eliquis, COPD, asthma, diabetes mellitus, hypertension, hyperlipidemia coming in with a chief complaint of dyspnea and cough. Cough with yellow to dark brown in color. Patient had a chest x-ray showing vascular congestion suspicious for CHF with pleural effusion and adjacent atelectasis/consolidation. So the patient received Lasix and started on empiric antibiotics and admitted for further follow-up. On 03/28/2020 -patient does lying in bed appears to be in no acute distress. Patient states that her breathing is slowly getting better. Patient denies having any chest pain or palpitations. No fever chills or rigors. No abdominal pain nausea vomiting or diarrhea. No dysuria or hematuria. On reviewing the vitals patient's blood pressure has been within normal limits, she is saturating at 94% on room air. Afebrile for the past 24 hours. On reviewing her ED labs white count at 14.4, hemoglobin nine 9.1, sodium 134, potassium 3.8, BUN 39 creatinine at 1.0. Blood sugars have been ranging between 100-250s. Active Medications Hydrocodone Bitart/Acetaminophen ([place] 10) 1 each PO Q6H PRN PRN Reason: Pain Last Admin: 03/28/20 12:28 Dose: 1 each Documented by: Albuterol/Ipratropium (Duoneb 0.5 Mg-3 Mg/3 Ml Soln) 3 ml INHALATION RT-QID [facility] Last Admin: 03/28/20 19:44 Dose: 3 ml Documented by: Amiodarone HCl (Cordarone) 100 mg PO HS [facility] Last Admin: 03/28/20 20:09 Dose: 100 mg Documented by: Apixaban (Eliquis) 5 mg PO BID [facility] Last Admin: 03/28/20 20:09 Dose: 5 mg Documented by: Budesonide/Formoterol Fumarate (Symbicort 160-4.5 Mcg Inhaler) 2 puff INHALATION RT-BID [facility] Last Admin: 03/28/20 19:44 Dose: 2 puff Documented by: Furosemide (Lasix) 40 mg PO BID@0900,1600 [facility] Last Admin: 03/28/20 15:47 Dose: 40 mg Documented by: Glimepiride (Amaryl) 2 mg PO BID [facility] Last Admin: 03/28/20 20:09 Dose: 2 mg Documented by: Sodium Chloride (Saline 0.9%) 1,000 mls @ 20 mls/hr IV .Q24H [facility] Last Admin: 03/28/20 14:36 Dose: Not Given Documented by: Doxycycline Hyclate 100 mg/ (Sodium Chloride) 100 mls @ 100 mls/hr IVPB Q12HR [facility] Stop: 03/31/20 21:01 Last Admin: 03/28/20 20:30 Dose: 100 mls/hr Documented by: Insulin Aspart (Novolog) 0 unit SQ ACHS [facility]; Protocol Last Admin: 03/28/20 20:50 Dose: 8 unit Documented by: Methylprednisolone Sodium Succinate (Solu-Medrol) 40 mg IV Q8HR [facility] Last Admin: 03/28/20 22:34 Dose: 40 mg Documented by: Nadolol (Corgard) 40 mg PO HS [facility] Last Admin: 03/28/20 20:09 Dose: 40 mg Documented by: Nitroglycerin (Nitro-Bid Oint) 0.5 inch TOPICAL QID [facility] Last Admin: 03/28/20 20:01 Dose: Not Given Documented by: Pantoprazole Sodium (Protonix) 40 mg PO AC-BRKFST [facility] Last Admin: 03/28/20 06:30 Dose: 40 mg Documented by: Potassium Chloride (K-Dur 10) 10 meq PO DAILY [facility] Last Admin: 03/28/20 09:35 Dose: 10 meq Documented by: Verapamil HCl (Isoptin) 80 mg PO BID [facility] Last Admin: 03/28/20 20:09 Dose: 80 mg Documented by: Objective - Vital Signs Vital signs: Vital Signs Temp 98 F 03/28/20 16:15 Pulse 69 03/28/20 16:15 Resp 19 03/28/20 16:15 BP 110/68 03/28/20 16:15 Pulse Ox 95 03/28/20 16:15 Intake & Output 03/27/20 03/28/20 03/28/20 18:59 06:59 18:59 Intake Total 267 025 6943 Output Total 1100 600 950 Balance -440 110 130 Weight 60 kg 56.5 kg Intake: IV 10 Invasive Line 2 10 Intake, IV Titration 100 Amount Doxycycline 100 mg In 100 Sodium Chloride 0.9% 100 ml @ 100 mls/hr IVPB Q12HR [facility] Rx#:[id number] Oral 549 [id number] Output: Urine 1100 600 950 Other: Voiding Method Toilet # Voids 1 # Bowel Movements 1 - Exam GENERAL EXAM: comfortable in no apparent distress. HEENT: Normocephalic, atraumatic. No pallor. No icterus. No JVD. No thyromegaly. LUNGS: Equal air entry with diffuse rhonchi and wheezing CVS: Irregular rate and rhythm, normal S1 and S2, no gallops, no murmurs, no rubs ABDOMEN: Soft, nontender. No hepatosplenomegaly, normal bowel sounds, no guar ding or rigidity. EXTREMITIES: No clubbing, very mild right ankle edema,right LE more swollen than left, chronic CENTRAL NERVOUS SYSTEM: No focal deficits, tone is normal in all 4 extremities. PSYCHIATRIC: Alert and oriented -3. Appropriate affect. SKIN: No rashes - Labs CBC & Chem 7: 03/28/20 06:50 03/28/20 06:50 Labs: Abnormal Lab Results - Last 24 Hours (Table) 03/27/20 03/28/20 03/28/20 Range/Units 20:03 06:26 06:50 WBC 14.4 H (3.8-10.6) k/uL RBC 3.18 L (3.80-5.40) m/uL Hgb 9.1 L (11.4-16.0) gm/dL Hct 29.0 L (34.0-46.0) % Plt Count 465 H (150-450) k/uL Neutrophils # 13.0 H (1.3-7.7) k/uL Lymphocytes # 0.7 L (1.0-4.8) k/uL Sodium (137-145) mmol/L Chloride (98-107) mmol/L BUN (7-17) mg/dL Glucose (74-99) mg/dL POC Glucose (mg/dL) 145 H 262 H (75-99) mg/dL 03/28/20 03/28/20 03/28/20 Range/Units 06:50 11:43 16:50 WBC (3.8-10.6) k/uL RBC (3.80-5.40) m/uL Hgb (11.4-16.0) gm/dL Hct (34.0-46.0) % Plt Count (150-450) k/uL Neutrophils # (1.3-7.7) k/uL Lymphocytes # (1.0-4.8) k/uL Sodium 134 L (137-145) mmol/L Chloride 95 L (98-107) mmol/L BUN 39 H (7-17) mg/dL Glucose 242 H (74-99) mg/dL POC Glucose (mg/dL) 175 H 204 H (75-99) mg/dL Microbiology - Last 24 Hours (Table) 03/26/20 13:40 Blood Culture - Preliminary Blood No Growth after 48 hours Assessment and Plan Assessment: ASSESSMENT Acute on chronic diastolic congestive heart failure exacerbation Severe mitral and tricuspid regurgitation Acute COPD exacerbation Atrial fibrillation on anticoagulation with Eliquis Hypertension Type 2 diabetes mellitus Hyperlipidemia Compression fracture of T8 Mild protein calorie malnutrition Anxiety with depression Multiple joint osteoarthritis Osteoporosis GERD PLAN: Continue the patient on Lasix. Continue with antibiotics, IV steroids and breathing treatments. Anti Coagulation on Eliquis. Continue with the rest of her current medication regimen. Further recommendations to follow depending on the progress of the patient.
[2020-03-29] MEDS: HYDROcodone/APAP 10-325MG 1 EACH TAB PO PRN ×3 (03:30→17:45)
[2020-03-29 06:16] LABS: Glucose,Whole Blood 191 mg/dL (75-99)
[2020-03-29] MEDS: INSULIN ASPART (NovoLOG) 100 UNIT/ML VIAL SQ SCH ×4 (06:18→20:39)
[2020-03-29] MEDS: PANTOPRAZOLE 40 MG TABLET PO SCH (06:18)
[2020-03-29] MEDS: SYMBICORT 160-4.5 MCG INHALER INHALATION SCH ×2 (07:59→19:38)
[2020-03-29] MEDS: IPRATROPIUM-ALBUTEROL 3 ML NEB INHALATION SCH ×4 (07:59→19:38)
[2020-03-29] MEDS: GLIMEPIRIDE 2 MG TAB PO SCH ×2 (08:51→19:39)
[2020-03-29] MEDS: FUROSEMIDE 40 MG TAB PO SCH ×2 (08:51→15:46)
[2020-03-29] MEDS: APIXABAN 5 MG TAB PO SCH ×2 (08:51→19:39)
[2020-03-29] MEDS: VERAPAMIL 80 MG TAB PO SCH ×2 (08:51→19:39)
[2020-03-29] MEDS: NITROGLYCERIN OINT 1 INCH/GM PACKET TOPICAL SCH (08:51)
[2020-03-29] MEDS: DOXYCYCLINE 100 MG in SODIUM CHLORIDE 0.9% 100 ML IVPB SCH ×2 (08:51→19:40)
[2020-03-29] MEDS: POTASSIUM CHLORIDE ER 10 MEQ TAB.ER.PRT PO SCH (08:51)
[2020-03-29] MEDS: methylPREDNISolone SOD SUCCI 40 MG/ML 1 ML VIAL IV SCH ×3 (08:51→22:58)
[2020-03-29 11:00] LABS: Calcium 8.9 mg/dL (8.4-10.2); Potassium 3.6 mmol/L (3.5-5.1)
[2020-03-29 11:15] LABS: Basophils % (A) 0 %; Eosinophils % (A) 0 %; HCT 28.4 % (34.0-46.0); HGB 9.2 gm/dL (11.4-16.0); Hypochromasia Moderate; Lymphocytes # (A) 0.7 k/uL (1.0-4.8); Lymphocytes % (A) 5 %; MCH 29.8 pg (25.0-35.0); MCHC 32.5 g/dL (31.0-37.0); MCV 91.8 fL (80.0-100.0); Mean Platelet Volume 8.4; Monocytes # (A) 0.9 k/uL (0-1.0); Monocytes % (A) 6 %; Neutrophils # (A) 12.8 k/uL (1.3-7.7); Neutrophils % (A) 89 %; Platelet Count 470 k/uL (150-450); RBC 3.09 m/uL (3.80-5.40); RDW 14.5 % (11.5-15.5); WBC 14.4 k/uL (3.8-10.6)
[2020-03-29 11:21] LABS: Glucose,Whole Blood 226 mg/dL (75-99)
[2020-03-29] MEDS: SODIUM CHLORIDE 0.9% 1,000 ML IV SCH (12:41)
--- NOTE | 2020-03-29 12:56 | P.PN ---
Subjective Progress Note Date: 03/29/20 Principal diagnosis: Acute exacerbation of diastolic congestive heart failure, mild intermittent asthma This is a 85-year-old white female patient of Dr. Royal Beaver, who also follows with Dr. Malone in the pulmonary clinic, with known history of mild intermittent bronchial asthma, chronic CHF, diabetes mellitus, GERD/reflux, hypertension hyperlipidemia, previous episode of myocardial infarction, chronic A. mary Doty, resides at [facility], who presented to the emergency department on 03/26/2020 with complaints of worsening shortness of breath, chest congestion, and productive cough with yellow colored sputum for a period of one week. Patient's visiting nurses yesterday evaluated the patient and decided to call 911 in view of her worsening dyspnea. Patient denied any chest pain, denied any hemoptysis, denied any fever or chills, denies any COVID 19 exposure. No swelling in bilateral extremities, no complaints of chest pain. Chest x-ray showed cardiomegaly with interstitial and vascular prominence correlating 4 CHF with mild pulmonary of S2 congestion, trace pleural effusions with adjacent atelectasis. Admission lab work showed white blood cell count of 20.1, hemoglobin was 9.1, d-dimer was normal at 0.26, sodium is 134, potassium is 5.9, chloride is 103, CO2 is 24, B1 is 33, creatinine 0.89, troponin is negative at 0.020, LFTs are within normal limits, lactic acid is 1.6, proBNP is 14,000, urinalysis was negative, coronavirus PCR was negative. Patient has been afebrile, vital signs have been stable, she is satting 97-90% on 2 L. Physical exam reveals diffuse rhonchi and wheezing. She was started on IV Lasix at 40 mg every 12 hours, antibiotics in form of doxycycline, breathing treatments. EKG showed ventricular paced rhythm. The patient is seen today 03/28/2020 in follow-up on the selective care unit. She is awake and alert in no acute distress. Sitting up at the bedside. Breathing a bit easier today compared to yesterday. Maintaining O2 saturations in the 90s on room air. She's afebrile. Hemodynamically stable. Blood cultures reveal no growth. White count 14.4. Hemoglobin 9.1. Sodium 134. Potassium 3.8. Creatinine 1.00. She remains on DuoNeb inhalations, Symbicort, IV Solu-Medrol, oral diuretics. Antibiotics in the form of doxycycline. Anticoagulated with Eliquis. The patient is seen today 03/29/2020 in follow-up on the selective care unit. She is currently sitting up at the bedside. Awake and alert in no acute distress. Improving from the pulmonary standpoint. Not quite back to her baseline. He is maintaining O2 saturations up to 100% on 2 L/m per nasal cannula. She's been afebrile. Hemodynamically stable. Blood culture reveals no growth to date. White count 14.4. Hemoglobin 9.2. Sodium 133. Potassium 3.6. Creatinine 1.04. Objective - Vital Signs Vital signs: Vital Signs Temp 97.9 F 03/29/20 08:30 Pulse 72 03/29/20 11:46 Resp 19 03/29/20 08:30 BP 112/80 03/29/20 08:30 Pulse Ox 100 03/29/20 08:30 Intake & Output 03/28/20 03/29/20 03/29/20 18:59 06:59 18:59 Intake Total 1620 410 480 Output Total 2100 1100 Balance -480 -690 480 Weight 59.2 kg Intake: IV 10 Invasive Line 3 10 Intake, IV Titration 100 Amount Doxycycline 100 mg In 100 Sodium Chloride 0.9% 100 ml @ 100 mls/hr IVPB Q12HR [facility] Rx#:[id number] Oral 1620 300 480 Output: Urine 2100 1100 Other: Voiding Method Toilet # Voids 1 # Bowel Movements 1 - Exam GENERAL EXAM: Alert, very pleasant, 85-year-old white female, on 2 L nasal cannula, comfortable in no apparent distress. HEAD: Normocephalic/atraumatic. EYES: Normal reaction of pupils, equal size. Conjunctiva pink, sclera white. NOSE: Clear with pink turbinates. THROAT: No erythema or exudates. NECK: No masses, no JVD, no thyroid enlargement, no adenopathy. CHEST: No chest wall deformity. Symmetrical expansion. LUNGS: Equal air entry with bilateral end expiratory wheeze, crackles in the bases, diminished CVS: Irregular rate and rhythm, normal S1 and S2, no gallops, no murmurs, no rubs ABDOMEN: Soft, nontender. No hepatosplenomegaly, normal bowel sounds, no guarding or rigidity. EXTREMITIES: No clubbing, very mild right ankle edema, patient states is chronic, right leg is always slightly more swollen than the left leg, patient is on chronic anticoagulation with Eliquis no cyanosis, 2+ pulses and upper and lower extremities. MUSCULOSKELETAL: Muscle strength and tone normal. SPINE: No scoliosis or deformity SKIN: No rashes CENTRAL NERVOUS SYSTEM: No focal deficits, tone is normal in all 4 extremities. PSYCHIATRIC: Alert and oriented -3. Appropriate affect. Intact judgment and insight. - Labs CBC & Chem 7: 03/29/20 09:38 03/29/20 09:38 Labs: Abnormal Lab Results - Last 24 Hours (Table) 03/28/20 03/28/20 03/29/20 Range/Units 16:50 20:39 06:15 WBC (3.8-10.6) k/uL RBC (3.80-5.40) m/uL Hgb (11.4-16.0) gm/dL Hct (34.0-46.0) % Plt Count (150-450) k/uL Neutrophils # (1.3-7.7) k/uL Lymphocytes # (1.0-4.8) k/uL Sodium (137-145) mmol/L Chloride (98-107) mmol/L BUN (7-17) mg/dL Glucose (74-99) mg/dL POC Glucose (mg/dL) 204 H 235 H 191 H (75-99) mg/dL 03/29/20 03/29/20 03/29/20 Range/Units 09:38 09:38 11:19 WBC 14.4 H (3.8-10.6) k/uL RBC 3.09 L (3.80-5.40) m/uL Hgb 9.2 L (11.4-16.0) gm/dL Hct 28.4 L (34.0-46.0) % Plt Count 470 H (150-450) k/uL Neutrophils # 12.8 H (1.3-7.7) k/uL Lymphocytes # 0.7 L (1.0-4.8) k/uL Sodium 133 L (137-145) mmol/L Chloride 93 L (98-107) mmol/L BUN 43 H (7-17) mg/dL Glucose 219 H (74-99) mg/dL POC Glucose (mg/dL) 226 H (75-99) mg/dL Microbiology - Last 24 Hours (Table) 03/26/20 13:40 Blood Culture - Preliminary Blood No Growth after 48 hours Assessment and Plan Assessment: #1. Dyspnea related to acute exacerbation of chronic congestive heart failure with preserved left ventricular systolic function , with most recent echocardiogram completed in October 2019 with an ejection fraction of 55-60% with severe concentric LVH and severe mitral and tricuspid regurgitation #2. Acute exacerbation of mild intermittent chronic bronchial asthma #3. Chronic A. fib on Eliquis, post permanent pacemaker implantation #4. Diabetes mellitus type 2 #5. GERD/reflux #6. Hypertension #7. Hyperlipidemia #8. Osteoarthritis #9. Osteoporosis #10. Chronic anemia #11. Anxiety depression #12. History of Enterococcus faecalis bacteremia and possibility of T8 discitis #13. Chronic back pain with compression fracture of T8 Plan: The patient was seen and evaluated by Dr. Irene Continue with the current treatment plan We'll continue to follow and make further recommendations based on her clinical status I, the cosigning physician, performed a history & physical examination of the patient. Lungs sounds with bilateral end expiratory wheeze, crackles in the bases. Maintaining good O2 saturations in the 90s on 2 L/m per nasal cannula. I discussed the assessment and plan of care with my nurse practitioner, Rosario Yanes. I attest to the above note as dictated by her.
--- NOTE | 2020-03-29 13:32 | PN ---
PROGRESS NOTE Mrs. Jane has sepsis and underlying atrial fib with sick sinus syndrome and permanent pacemaker. She has a paced rhythm. She is doing fairly well. Breathing is easier. Denies any chest pain. From a cardiac standpoint, she can be discharged. Vitals are stable. JVD 1 cm. No carotid bruit. S1-S2 heard normally. Short systolic murmur noted. Lungs reveal improved air entry. Abdomen and lower extremity exam unchanged. MMODL / IJN: [id number] /
--- NOTE | 2020-03-29 15:12 | P.PN ---
Subjective Progress Note Date: 03/29/20 Principal diagnosis: Acute on chronic diastolic congestive heart failure exacerbation Severe mitral and tricuspid regurgitation Ms. Jane is an 85-year-old female with a past medical history of congestive heart failure, atrial fibrillation on Eliquis, COPD, asthma, diabetes mellitus, hypertension, hyperlipidemia coming in with a chief complaint of dyspnea and cough. Cough with yellow to dark brown in color. Patient had a chest x-ray showing vascular congestion suspicious for CHF with pleural effusion and adjacent atelectasis/consolidation. So the patient received Lasix and started on empiric antibiotics and admitted for further follow-up. On 03/28/2020 -patient does lying in bed appears to be in no acute distress. Patient states that her breathing is slowly getting better. Patient denies having any chest pain or palpitations. No fever chills or rigors. No abdominal pain nausea vomiting or diarrhea. No dysuria or hematuria. On reviewing the vitals patient's blood pressure has been within normal limits, she is saturating at 94% on room air. Afebrile for the past 24 hours. On reviewing her ED labs white count at 14.4, hemoglobin nine 9.1, sodium 134, potassium 3.8, BUN 39 creatinine at 1.0. Blood sugars have been ranging between 100-250s. On 03/29/2020- patient is comfortably lying in bed appears to be no acute distress. No acute events reported by nursing staff. Patient complains of cough that is productive in nature. No difficulty in breathing. No fever, chills or rigors. She denies having any chest pain or palpitations. Denies having any lower extremity swelling. On reviewing the records patient has been saturating at 97% on room air, blood pressure within normal limits, T-max 98.3. Patient's labs from this morning showing white count of 14.4, hemoglobin 9.2, sodium 133, potassium 3.6, bicarb 28, chloride 93, BUN 43 creatinine 1.04. Active Medications Hydrocodone Bitart/Acetaminophen (Allen 10) 1 each PO Q6H PRN PRN Reason: Pain Last Admin: 03/29/20 11:05 Dose: 1 each Documented by: Albuterol/Ipratropium (Duoneb 0.5 Mg-3 Mg/3 Ml Soln) 3 ml INHALATION RT-QID MITZY Last Admin: 03/29/20 11:36 Dose: 3 ml Documented by: Amiodarone HCl (Cordarone) [address] [facility] Last Admin: 03/28/20 20:09 Dose: 100 mg Documented by: Apixaban (Eliquis) 5 mg PO BID [facility] Last Admin: 03/29/20 08:51 Dose: 5 mg Documented by: Budesonide/Formoterol Fumarate (Symbicort 160-4.5 Mcg Inhaler) 2 puff INHALATION RT-BID [facility] Last Admin: 03/29/20 07:59 Dose: 2 puff Documented by: Furosemide (Lasix) 40 mg PO BID@0900,1600 [facility] Last Admin: 03/29/20 08:51 Dose: 40 mg Documented by: Glimepiride (Amaryl) 2 mg PO BID [facility] Last Admin: 03/29/20 08:51 Dose: 2 mg Documented by: Sodium Chloride (Saline 0.9%) 1,000 mls @ 20 mls/hr IV .Q24H [facility] Last Admin: 03/29/20 12:41 Dose: Not Given Documented by: Doxycycline Hyclate 100 mg/ (Sodium Chloride) 100 mls @ 100 mls/hr IVPB Q12HR [facility] Stop: 03/31/20 21:01 Last Admin: 03/29/20 08:51 Dose: 100 mls/hr Documented by: Insulin Aspart (Novolog) 0 unit SQ ACHS [facility]; Protocol Last Admin: 03/29/20 12:40 Dose: 7 unit Documented by: Methylprednisolone Sodium Succinate (Solu-Medrol) 40 mg IV Q8HR [facility] Last Admin: 03/29/20 08:51 Dose: 40 mg Documented by: Nadolol (Corgard) [address] [facility] Last Admin: 03/28/20 20:09 Dose: 40 mg Documented by: Pantoprazole Sodium (Protonix) 40 mg PO AC-BRKFST [facility] Last Admin: 03/29/20 06:18 Dose: 40 mg Documented by: Potassium Chloride (K-Dur 10) 10 meq PO DAILY [facility] Last Admin: 03/29/20 08:51 Dose: 10 meq Documented by: Verapamil HCl (Isoptin) 80 mg PO BID [facility] Last Admin: 03/29/20 08:51 Dose: 80 mg Documented by: Objective - Vital Signs Vital signs: Vital Signs Temp 97.9 F 03/29/20 08:30 Pulse 74 03/29/20 12:15 Resp 17 03/29/20 12:15 BP 114/52 03/29/20 12:15 Pulse Ox 97 03/29/20 12:15 Intake & Output 03/28/20 03/29/20 03/29/20 18:59 06:59 18:59 Intake Total 1620 410 480 Output Total 2100 1100 Balance -480 -690 480 Weight 59.2 kg Intake: IV 10 Invasive Line 3 10 Intake, IV Titration 100 Amount Doxycycline 100 mg In 100 Sodium Chloride 0.9% 100 ml @ 100 mls/hr IVPB Q12HR [facility] Rx#:[id number] Oral 1620 300 480 Output: Urine 2100 1100 Other: Voiding Method Toilet # Voids 1 # Bowel Movements 1 - Exam GENERAL EXAM: Appears to be no acute distress HEENT: Normocephalic, atraumatic. No pallor. No icterus. No JVD. No thyromegaly. LUNGS: Equal air entry with diffuse rhonchi and wheezing CVS: Irregular rate and rhythm, normal S1 and S2, no gallops, no murmurs, no rubs ABDOMEN: Soft, nontender. normal bowel sounds, no guarding or rigidity. EXTREMITIES: No clubbing, very mild right ankle edema,right LE more swollen than left, chronic CENTRAL NERVOUS SYSTEM: No focal deficits PSYCHIATRIC: Alert and oriented -3. Appropriate affect. SKIN: No rashes - Labs CBC & Chem 7: 03/29/20 09:38 03/29/20 09:38 Labs: Abnormal Lab Results - Last 24 Hours (Table) 03/28/20 03/28/20 03/29/20 Range/Units 16:50 20:39 06:15 WBC (3.8-10.6) k/uL RBC (3.80-5.40) m/uL Hgb (11.4-16.0) gm/dL Hct (34.0-46.0) % Plt Count (150-450) k/uL Neutrophils # (1.3-7.7) k/uL Lymphocytes # (1.0-4.8) k/uL Sodium (137-145) mmol/L Chloride (98-107) mmol/L BUN (7-17) mg/dL Glucose (74-99) mg/dL POC Glucose (mg/dL) 204 H 235 H 191 H (75-99) mg/dL 03/29/20 03/29/20 03/29/20 Range/Units 09:38 09:38 11:19 WBC 14.4 H (3.8-10.6) k/uL RBC 3.09 L (3.80-5.40) m/uL Hgb 9.2 L (11.4-16.0) gm/dL Hct 28.4 L (34.0-46.0) % Plt Count 470 H (150-450) k/uL Neutrophils # 12.8 H (1.3-7.7) k/uL Lymphocytes # 0.7 L (1.0-4.8) k/uL Sodium 133 L (137-145) mmol/L Chloride 93 L (98-107) mmol/L BUN 43 H (7-17) mg/dL Glucose 219 H (74-99) mg/dL POC Glucose (mg/dL) 226 H (75-99) mg/dL Microbiology - Last 24 Hours (Table) 03/26/20 13:40 Blood Culture - Preliminary Blood No Growth after 48 hours Assessment and Plan Assessment: ASSESSMENT Acute on chronic diastolic congestive heart failure exacerbation Severe mitral and tricuspid regurgitation Acute COPD exacerbation Atrial fibrillation on anticoagulation with Eliquis Hypertension Type 2 diabetes mellitus Hyperlipidemia Compression fracture of T8 Mild protein calorie malnutrition Anxiety with depression Multiple joint osteoarthritis Osteoporosis GERD PLAN: Continue the patient on Lasix. Continue with doxycycline, IV steroids and breathing treatments. She is on Elquis for anticoagulation. Continue with the rest of her current medication regimen. Further recommendations to follow depending on the progress of the patient.
[2020-03-29 16:52] LABS: Glucose,Whole Blood 205 mg/dL (75-99)
[2020-03-29] MEDS: AMIODARONE 100 MG TAB PO SCH (19:39)
[2020-03-29 20:10] LABS: Glucose,Whole Blood 224 mg/dL (75-99)
[2020-03-30] MEDS: HYDROcodone/APAP 10-325MG 1 EACH TAB PO PRN ×2 (03:25→09:36)
[2020-03-30 06:17] LABS: Glucose,Whole Blood 236 mg/dL (75-99)
[2020-03-30] MEDS: PANTOPRAZOLE 40 MG TABLET PO SCH (06:22)
[2020-03-30] MEDS: INSULIN ASPART (NovoLOG) 100 UNIT/ML VIAL SQ SCH ×2 (06:22→12:45)
[2020-03-30] MEDS: IPRATROPIUM-ALBUTEROL 3 ML NEB INHALATION SCH ×3 (07:41→17:05)
[2020-03-30] MEDS: SYMBICORT 160-4.5 MCG INHALER INHALATION SCH (07:41)
[2020-03-30] MEDS: DOXYCYCLINE 100 MG in SODIUM CHLORIDE 0.9% 100 ML IVPB SCH (09:33)
[2020-03-30] MEDS: APIXABAN 5 MG TAB PO SCH (09:34)
[2020-03-30] MEDS: VERAPAMIL 80 MG TAB PO SCH (09:34)
[2020-03-30] MEDS: methylPREDNISolone SOD SUCCI 40 MG/ML 1 ML VIAL IV SCH ×2 (09:34→17:35)
[2020-03-30] MEDS: GLIMEPIRIDE 2 MG TAB PO SCH (09:34)
[2020-03-30] MEDS: POTASSIUM CHLORIDE ER 10 MEQ TAB.ER.PRT PO SCH (09:34)
[2020-03-30] MEDS: FUROSEMIDE 40 MG TAB PO SCH ×2 (09:34→17:35)
[2020-03-30 11:45] LABS: Glucose,Whole Blood 133 mg/dL (75-99)
[2020-03-30 13:32] VITALS: BP 137/67; PULSE 73; RESP 18; TEMP 98.3
--- NOTE | 2020-03-30 14:00 | P.PN ---
Subjective Progress Note Date: 03/30/20 Principal diagnosis: Acute exacerbation of diastolic CHF, mild intermittent asthma This is a 85-year-old white female patient of Dr. Royal Beaver, who also follows with Dr. Malone in the pulmonary clinic, with known history of mild intermittent bronchial asthma, chronic CHF, diabetes mellitus, GERD/reflux, hypertension hyperlipidemia, previous episode of myocardial infarction, chronic A. mary Doty, resides at [facility], who presented to the emergency department on 03/26/2020 with complaints of worsening shortness of breath, chest congestion, and productive cough with yellow colored sputum for a period of one week. Patient's visiting nurses yesterday evaluated the patient and decided to call 911 in view of her worsening dyspnea. Patient denied any chest pain, denied any hemoptysis, denied any fever or chills, denies any COVID 19 exposure. No swelling in bilateral extremities, no complaints of chest pain. Chest x-ray showed cardiomegaly with interstitial and vascular prominence correlating 4 CHF with mild pulmonary of S2 congestion, trace pleural effusions with adjacent atelectasis. Admission lab work showed white blood cell count of 20.1, hemoglob in was 9.1, d-dimer was normal at 0.26, sodium is 134, potassium is 5.9, chloride is 103, CO2 is 24, B1 is 33, creatinine 0.89, troponin is negative at 0.020, LFTs are within normal limits, lactic acid is 1.6, proBNP is 14,000, urinalysis was negative, coronavirus PCR was negative. Patient has been afebrile, vital signs have been stable, she is satting 97-90% on 2 L. Physical exam reveals diffuse rhonchi and wheezing. She was started on IV Lasix at 40 mg every 12 hours, antibiotics in form of doxycycline, breathing treatments. EKG showed ventricular paced rhythm. The patient is seen today 03/28/2020 in follow-up on the selective care unit. She is awake and alert in no acute distress. Sitting up at the bedside. Breathing a bit easier today compared to yesterday. Maintaining O2 saturations in the 90s on room air. She's afebrile. Hemodynamically stable. Blood cultures reveal no growth. White count 14.4. Hemoglobin 9.1. Sodium 134. Potassium 3.8. Creatinine 1.00. She remains on DuoNeb inhalations, Symbicort, IV Solu-Medrol, oral diuretics. Antibiotics in the form of doxycycline. Anticoagulated with Eliquis. The patient is seen today 03/29/2020 in follow-up on the selective care unit. She is currently sitting up at the bedside. Awake and alert in no acute distre ss. Improving from the pulmonary standpoint. Not quite back to her baseline. He is maintaining O2 saturations up to 100% on 2 L/m per nasal cannula. She's been afebrile. Hemodynamically stable. Blood culture reveals no growth to date. White count 14.4. Hemoglobin 9.2. Sodium 133. Potassium 3.6. Creatinine 1.04. On 03/30/2020 patient seen in follow-up on selective care unit, she is awake and alert, she is resting comfortably in bed, room air pulse ox is 98%, her lung sounds are clear to auscultation, no wheezing, no rhonchi, no cough or congestion, no complaints of chest discomfort. She has diabetes, she is currently on oral Lasix 80 mg twice daily, she is on empiric antibiotics in the form of doxycycline, she is on oral anticoagulation and IV steroids in addition to nebulized bronchodilators. She's had no fever or chills, no acute events overnight. She is in paced rhythm with a controlled rate. No lower extremity edema. No JVD. Objective - Vital Signs Vital signs: Vital Signs Temp 98.3 F 03/30/20 12:00 Pulse 73 03/30/20 12:00 Resp 18 03/30/20 12:00 BP 137/67 03/30/20 12:00 Pulse Ox 96 03/30/20 12:00 Intake & Output 03/29/20 03/30/20 03/30/20 18:59 06:59 18:59 Intake Total 1620 400 540 Output Total 650 300 200 Balance 970 100 340 Weight 59.5 kg Intake: Intake, IV Titration 100 Amount Doxycycline 100 mg In 100 Sodium Chloride 0.9% 100 ml @ 100 mls/hr IVPB Q12HR [facility] Rx#:[id number] Oral 1620 300 540 Output: Urine 650 300 200 Other: Voiding Method Toilet Toilet # Voids 1 1 - Exam GENERAL EXAM: Alert, very pleasant, 85-year-old white female, on 2 L nasal cannula, comfortable in no apparent distress. HEAD: Normocephalic/atraumatic. EYES: Normal reaction of pupils, equal size. Conjunctiva pink, sclera white. NOSE: Clear with pink turbinates. THROAT: No erythema or exudates. NECK: No masses, no JVD, no thyroid enlargement, no adenopathy. CHEST: No chest wall deformity. Symmetrical expansion. LUNGS: Equal air entry with no wheezing, no rhonchi CVS: Irregular rate and rhythm, normal S1 and S2, no gallops, no murmurs, no rubs ABDOMEN: Soft, nontender. No hepatosplenomegaly, normal bowel sounds, no guarding or rigidity. EXTREMITIES: No clubbing, very mild right ankle edema, patient states is chronic, right leg is always slightly more swollen than the left leg, patient is on chronic anticoagulation with Eliquis no cyanosis, 2+ pulses and upper and lower extremities. MUSCULOSKELETAL: Muscle strength and tone normal. SPINE: No scoliosis or deformity SKIN: No rashes CENTRAL NERVOUS SYSTEM: No focal deficits, tone is normal in all 4 extremities. PSYCHIATRIC: Alert and oriented -3. Appropriate affect. Intact judgment and insight. - Labs CBC & Chem 7: 03/29/20 09:38 03/29/20 09:38 Labs: Abnormal Lab Results - Last 24 Hours (Table) 03/29/20 03/29/20 03/30/20 Range/Units 16:51 20:08 06:14 POC Glucose (mg/dL) 205 H 224 H 236 H (75-99) mg/dL 03/30/20 Range/Units 11:43 POC Glucose (mg/dL) 133 H (75-99) mg/dL Microbiology - Last 24 Hours (Table) 03/26/20 13:40 Blood Culture - Preliminary Blood No Growth after 72 hours Assessment and Plan Plan: Assessment: #1. Dyspnea related to acute exacerbation of chronic congestive heart failure with preserved left ventricular systolic function , with most recent echocardiogram completed in October 2019 with an ejection fraction of 55-60% with severe concentric LVH and severe mitral and tricuspid regurgitation. Patient has been diuresed, and improved #2. Acute exacerbation of mild intermittent chronic bronchial asthma, improved #3. Chronic A. fib on Eliquis, post permanent pacemaker implantation #4. Diabetes mellitus type 2 #5. GERD/reflux #6. Hypertension #7. Hyperlipidemia #8. Osteoarthritis #9. Osteoporosis #10. Chronic anemia #11. Anxiety depression #12. History of Enterococcus faecalis bacteremia and possibility of T8 discitis #13. Chronic back pain with compression fracture of T8 Plan: Patient is doing well, breathing has improved, she is on room air, increase activity as tolerated, patient can be transitioned to oral prednisone, she is on oral Lasix, nebulized bronchodilators, vital signs have been stable. From pulmonary perspective patient can be considered for discharge home today, she sees Dr. Malone in the outpatient setting for her history of asthma, she can follow up with him in 7-10 days. I performed a history & physical examination of the patient and discussed their management with my nurse practitioner, Tory Aquino. I reviewed the nurse practitioner's note and agree with the documented findings and plan of care. Lung sounds are positive for diffuse rhonchi and wheezes. The findings and the impression was discussed with the patient. I attest to the documentation by the nurse practitioner. Time with Patient: Less than 30
[2020-03-30 14:06] LABS: Hemoglobin A1C 6.5 % (4.0-6.0)
[2020-03-30 15:06] VITALS: BMI 24.0
--- NOTE | 2020-03-30 15:51 | P.DS ---
Providers Date of admission: 03/26/20 13:53 Expected date of discharge: 03/30/20 Attending physician: Manasa Skaggs Consults: 03/26/20 14:43 Consult Physician Stat Consulting Provider: Mookie Gibson Consult Reason/Comments: CHF Do you want consulting provider notified?: Yes 03/26/20 20:07 Consult Physician Routine Consulting Provider: Lizzie Irene Consult Reason/Comments: CHF, and COPD Do you want consulting provider notified?: Yes Primary care physician: [facility] Course: Ms. Jane is a 85-year-old white female patient of Dr. Royal Beaver, who also follows with Dr. Malone in the pulmonary clinic, with known history of mild intermittent bronchial asthma, chronic CHF, diabetes mellitus, GERD/reflux, hypertension hyperlipidemia, previous episode of myocardial infarction, chronic A. mary tre[facility], resides at [facility], who presented to the emergency department on 03/26/2020 with complaints of worsening shortness of breath, chest congestion, and productive cough with yellow colored sputum for a period of one week. Patient's visiting nurses yesterday evaluated the patient and decided to call 911 in view of her worsening dyspnea. Patient denied any chest pain, denied any hemoptysis, denied any fever or chills, denies any COVID 19 exposure. No swelling in bilateral extremities, no complaints of chest pain. Chest x-ray showed cardiomegaly with interstitial and vascular prominence correlating 4 CHF with mild pulmonary of S2 congestion, trace pleural effusions with adjacent atelectasis. Admission lab work showed white blood cell count of 20.1, hemoglobin was 9.1, d- dimer was normal at 0.26, sodium is 134, potassium is 5.9, chloride is 103, CO2 is 24, B1 is 33, creatinine 0.89, troponin is negative at 0.020, LFTs are within normal limits, lactic acid is 1.6, proBNP is 14,000, urinalysis was negative, coronavirus PCR was negative. Patient has been afebrile, vital signs have been stable, she is satting 97-90% on 2 L. Physical exam reveals diffuse rhonchi and wheezing. She was started on IV Lasix at 40 mg every 12 hours, antibiotics in form of doxycycline, breathing treatments. EKG showed ventricular paced rhythm. Hospital course- patient was given IV Lasix, started on antibiotics in the form of doxycycline, IV steroids along with breathing treatments. There was significant improvement in her difficulty in breathing status and this morning patient states she is back to her baseline. So the patient is being discharged home in a stable condition. Vital Signs 03/30/20 03/30/20 03/30/20 07:53 08:00 11:14 Temperature 97.7 F Pulse Rate 76 72 Pulse Rate [ 75 Pulse Oximetery ] Respiratory 16 Rate Blood Pressure 130/65 [Left Arm] O2 Sat by Pulse 98 Oximetry 03/30/20 03/30/20 11:22 12:00 Temperature 98.3 F Pulse Rate 76 Pulse Rate [ 73 Pulse Oximetery ] Respiratory 18 Rate Blood Pressure 137/67 [Left Arm] O2 Sat by Pulse 96 Oximetry GENERAL EXAM: Appears to be no acute distress HEENT: Normocephalic, atraumatic. No pallor. No icterus. No JVD. No thyromegaly. LUNGS: Equal air entry with diffuse rhonchi . No wheezing . CVS: Irregular rate and rhythm, normal S1 and S2, no gallops, no murmurs, no rubs ABDOMEN: Soft, nontender. normal bowel sounds, no guarding or rigidity. EXTREMITIES: No clubbing, very mild right ankle edema,right LE more swollen than left, chronic CENTRAL NERVOUS SYSTEM: No focal deficits PSYCHIATRIC: Alert and oriented -3. Appropriate affect. DISCHARGE DIAGNOSIS Acute on chronic diastolic congestive heart failure exacerbation Severe mitral and tricuspid regurgitation Acute COPD exacerbation Atrial fibrillation on anticoagulation with Eliquis Hypertension Type 2 diabetes mellitus Hyperlipidemia Compression fracture of T8 Mild protein calorie malnutrition Anxiety with depression Multiple joint osteoarthritis Osteoporosis GERD Follow-up: Patient is advised to follow up with pulmonary, PCP within one week. Patient states that she was discharged previously on tapering dose of steroids, so she is advised to complete the tapering dose of steroids. She is being discharged home in a stable condition. Patient Condition at Discharge: Stable Plan - Discharge Summary Discharge Rx Participant: No New Discharge Prescriptions: Continue Apixaban [Eliquis] 5 mg PO BID Glimepiride [Amaryl] 2 mg PO BID Nadolol [Corgard] 40 mg PO HS Amiodarone [Cordarone] 100 mg PO HS Verapamil [Isoptin] 80 mg PO BID Omeprazole 40 mg PO DAILY Fluticasone/Salmeterol [Advair 500-50 Diskus] 1 puff INHALATION RT-BID predniSONE See Taper PO DIRECTED HYDROcodone/APAP 5-325MG [[place] 5-325] 1 tab PO Q6H PRN #12 tab PRN Reason: Pain Potassium Chloride 10 meq PO DAILY Furosemide [Lasix] 40 mg PO DAILY Levalbuterol Nebulized [Xopenex Nebulized] 1.25 mg INHALATION RT-QID PRN PRN Reason: Shortness Of Breath HYDROcodone/APAP 10-325MG [[place] 10-325] 1 tab PO Q4H PRN PRN Reason: Pain Furosemide [Lasix] 40 mg PO DAILY Famotidine [Pepcid] 20 mg PO DAILY PRN PRN Reason: Gi Upset Baclofen 10 - 20 mg PO HS PRN PRN Reason: Muscle Spasm Discharge Medication List Apixaban [Eliquis] 5 mg PO BID 11/24/14 [History] Glimepiride [Amaryl] 2 mg PO BID 06/07/15 [History] Nadolol [Corgard] 40 mg PO HS 05/20/16 [History] Amiodarone [Cordarone] 100 mg PO HS 11/27/17 [History] Omeprazole 40 mg PO DAILY 06/10/18 [History] Verapamil [Isoptin] 80 mg PO BID 06/10/18 [History] Fluticasone/Salmeterol [Advair 500-50 Diskus] 1 puff INHALATION RT-BID 06/03/19 [History] predniSONE See Taper PO DIRECTED 09/26/19 [History] HYDROcodone/APAP 5-325MG [[place] 5-325] 1 tab PO Q6H PRN #12 tab 10/02/19 [Rx] Furosemide [Lasix] 40 mg PO DAILY 10/22/19 [History] Potassium Chloride 10 meq PO DAILY 10/22/19 [History] Baclofen 10 - 20 mg PO HS PRN 03/26/20 [History] Famotidine [Pepcid] 20 mg PO DAILY PRN 03/26/20 [History] Furosemide [Lasix] 40 mg PO DAILY 03/26/20 [History] HYDROcodone/APAP 10-325MG [[place] 10-325] 1 tab PO Q4H PRN 03/26/20 [History] Levalbuterol Nebulized [Xopenex Nebulized] 1.25 mg INHALATION RT-QID PRN 03/26/20 [History] Follow up Appointment(s)/Referral(s): Aby Vogt MD [STAFF PHYSICIAN] - 04/23/20 10:00 am (To see Dr. Malone on follow up.) [facility], [NON-STAFF] - Royal Farias MD [Primary Care Provider] - 1-2 days (Office to call patient with an appointment time.) Patient Instructions/Handouts: Heart Failure (DC) Discharge Disposition: HOME SELF-CARE
[2020-03-30 17:13] LABS: Glucose,Whole Blood 244 mg/dL (75-99)
--- NOTE | 2020-04-01 09:07 | CDI ---
Documentation Clarification Form Date: 03/31/20 From: Tala Grant Phone: If you have a question about this query, please contact [facility] Associate at [phone] between 8am and 5pm. Admit Date: 03/26/20 Discharge Date:03/30/20 Patient Name: Vashti Jane Visit Number: [id number] ATTENTION: The Clinical Documentation Specialists (CDI) and [facility] Coding Staff appreciate your assistance in clarifying documentation. Please respond to the clarification below the line at the bottom and electronically sign. The CDI & [facility] Coding staff will review the response and follow-up if needed. Please note: Queries are made part of the Legal Health Record. If you have any questions, please contact the author of this message via ITS. Dear Dr. Jennings Patient has been diagnosed with a fall with compression fracture of T8 spine. History/Risk Factors: Osteoporosis, history of fall Clinical Indications: Chronic back pain since the fracture X-Ray Results: CXR - Cardiomegaly. Trace effusions with adjacent atelectasis and/or consolidation Treatment: [place] 10 Q 6 hours In your professional opinion, please specify the following: Etiology of fracture: Traumatic Pathological (specify cause): Osteoporosis Other (please specify): Unable to determine Episode of care: Initial Subsequent with delayed healing Subsequent with malunion Subsequent with nonunion Sequela Unable to determine Sequela MTDD
== END 2020-03-30 17:37 | disposition home health service (06) | DRG 292 ==
LOC: EC 11:50 → 3SCARD 13:53
PROVIDERS: ADMIT Internal Medicine; ATTEND Internal Medicine
DX: I11.0 Hypertensive heart disease with heart failure (principal); E44.1 Mild protein-calorie malnutrition; I48.20 Chronic atrial fibrillation, unspecified; J44.1 Chronic obstructive pulmonary disease with (acute) exacerbation; J45.21 Mild intermittent asthma with (acute) exacerbation; I50.33 Acute on chronic diastolic (congestive) heart failure; I27.20 Pulmonary hypertension, unspecified; I49.5 Sick sinus syndrome; J84.10 Pulmonary fibrosis, unspecified; E11.42 Type 2 diabetes mellitus with diabetic polyneuropathy; R94.31 Abnormal electrocardiogram [ECG] [EKG]; D64.9 Anemia, unspecified; E78.5 Hyperlipidemia, unspecified; G89.29 Other chronic pain; I08.1 Rheumatic disorders of both mitral and tricuspid valves; K21.9 Gastro-esophageal reflux disease without esophagitis; K59.00 Constipation, unspecified; M54.5 Low back pain; Z20.828 Contact with and (suspected) exposure to other viral communicable diseases; M15.9 Polyosteoarthritis, unspecified; M81.0 Age-related osteoporosis without current pathological fracture; S22.069S Unspecified fracture of T7-T8 vertebra, sequela; F41.9 Anxiety disorder, unspecified; F32.9 Major depressive disorder, single episode, unspecified; Z68.24 Body mass index [BMI] 24.0-24.9, adult; I25.2 Old myocardial infarction; Z79.01 Long term (current) use of anticoagulants; Z79.52 Long term (current) use of systemic steroids; Z79.899 Other long term (current) drug therapy; Z79.84 Long term (current) use of oral hypoglycemic drugs; Z88.5 Allergy status to narcotic agent; Z88.8 Allergy status to other drugs, medicaments and biological substances; Z90.49 Acquired absence of other specified parts of digestive tract; Z95.0 Presence of cardiac pacemaker; Z98.51 Tubal ligation status; Z98.42 Cataract extraction status, left eye; Z98.41 Cataract extraction status, right eye; Z87.01 Personal history of pneumonia (recurrent); Z80.3 Family history of malignant neoplasm of breast; Z81.8 Family history of other mental and behavioral disorders
CPT/HCPCS: 36415; 71046; 80048; 80053; 81003; 83036; 83605; 83735; 83880; 84484; 85025; 85379; 85610; 85730; 87040; 93005; 93306; 94640; 96361; 96374; 96375; 99285

== ENCOUNTER 2020-04-01 08:28 | Inpatient (IN) | payer MEDICARE ==
[2020-04-01] MEDS ORDERED: methylPREDNISolone SOD SUCCI 125 MG/2 ML VIAL IV STA (08:42)
[2020-04-01] MEDS ORDERED: IPRATROPIUM 0.5 MG/2.5 ML NEBU INHALATION STA (08:42)
[2020-04-01] MEDS ORDERED: ALBUTEROL NEBULIZED 2.5 MG/3 ML INHALATION STA (08:42)
--- NOTE | 2020-04-01 08:54 | ED ---
General Adult HPI - General Chief complaint: Shortness of Breath Stated complaint: SOB Time Seen by Provider: 04/01/20 08:29 Source: patient, EMS, RN notes reviewed, old records reviewed Mode of arrival: EMS Limitations: no limitations - History of Present Illness Initial comments: 85-year-old female history of COPD, CHF, recent hospital admission with pneumonia presenting for worsening dyspnea and weakness. She has a productive cough productive of yellow sputum. She denies fever. She denies worsening lower extremity edema. Denies nausea vomiting. She denies chest pain. History of atrial fibrillation currently on Eliquis - Related Data Home Medications Medication Instructions Recorded Confirmed Apixaban [Eliquis] 5 mg PO BID 11/24/14 04/01/20 Glimepiride [Amaryl] 2 mg PO BID 06/07/15 04/01/20 Nadolol [Corgard] 40 mg PO HS 05/20/16 04/01/20 Amiodarone [Cordarone] 100 mg PO HS 11/27/17 04/01/20 Omeprazole 40 mg PO DAILY 06/10/18 04/01/20 Verapamil [Isoptin] 80 mg PO BID 06/10/18 04/01/20 Fluticasone/Salmeterol [Advair 1 puff INHALATION RT-BID 06/03/19 04/01/20 500-50 Diskus] predniSONE See Taper PO DIRECTED 09/26/19 04/01/20 Potassium Chloride 10 meq PO DAILY 10/22/19 04/01/20 Baclofen 10 - 20 mg PO HS PRN 03/26/20 04/01/20 Furosemide [Lasix] 40 mg PO DAILY 03/26/20 04/01/20 HYDROcodone/APAP 10-325MG [[place] 1 tab PO Q4H PRN 03/26/20 04/01/20 10-325] Levalbuterol Nebulized [Xopenex 1.25 mg INHALATION RT-QID PRN 03/26/20 04/01/20 Nebulized] Famotidine [Pepcid] 40 mg PO DAILY PRN 04/01/20 04/01/20 Allergies Allergy/AdvReac Type Severity Reaction Status Date / Time diltiazem Allergy Itching Verified 04/01/20 09:37 morphine AdvReac Confusion Verified 04/01/20 09:37 Review of Systems ROS Statement: Those systems with pertinent positive or pertinent negative responses have been documented in the HPI. ROS Other: All systems not noted in ROS Statement are negative. Past Medical History Past Medical History: Atrial Fibrillation, Asthma, Chest Pain / Angina, Heart Failure, COPD, Diabetes Mellitus, GERD/Reflux, Hyperlipidemia, Hypertension, Myocardial Infarction (AL), Osteoarthritis (OA), Pneumonia Additional Past Medical History / Comment(s): Pt admitted to [facility] on 09/04/19 fall with compression fracture T8-chronic back pain since, acute kidney injury and acute pancreatitis. Other hx; Afib RVR, NIDDM type II, neuropathy bilateral feet, arthritis multiple joints, osteoporosis, chronic anemia, falls, 2013 shingelles Last Myocardial Infarction Date:: 07/16/11 History of Any Multi-Drug Resistant Organisms: None Reported Past Surgical History: Appendectomy, Breast Surgery, Heart Catheterization, Pacemaker, Tubal Ligation Additional Past Surgical History / Comment(s): 02/2011 cardiac cath-normal, benign L breast lumpectomy, bronchoscopy, EGD/colonoscopy, bilateral cataract removals, 2010 VATS L lung d/t fibrotic lung changes. Past Anesthesia/Blood Transfusion Reactions: No Reported Reaction Additional Past Anesthesia/Blood Transfusion Reaction / Comment(s): Pt has received blood in past without reaction Type of Cardiac Device: Permanent Pacemaker Device Placement Date:: NOVEMBER 28 2017 Past Psychological History: No Psychological Hx Reported, Depression Smoking Status: Never smoker Past Alcohol Use History: Rare Past Drug Use History: None Reported - Past Family History Sister(s) Family Medical History: Cancer Additional Family Medical History / Comment(s): breast CA Mother History Unknown: Yes Family Medical History: No Reported History Additional Family Medical History / Comment(s): from car accident no other hx known Father History Unknown: Yes Family Medical History: No Reported History Additional Family Medical History / Comment(s): committed suicide Daughter(s) Family Medical History: Cancer Additional Family Medical History / Comment(s): breast CA General Exam Limitations: no limitations General appearance: alert, in no apparent distress Head exam: Present: atraumatic, normocephalic Eye exam: Present: normal appearance, PERRL ENT exam: Present: normal exam Neck exam: Present: normal inspection. Absent: tenderness, meningismus Respiratory exam: Present: respiratory distress (mild), wheezes, rhonchi Cardiovascular Exam: Present: regular rate, irregular rhythm GI/Abdominal exam: Present: soft. Absent: distended, tenderness Extremities exam: Present: pedal edema (trace) Neurological exam: Present: alert, oriented X3, CN II-XII intact. Absent: motor sensory deficit Psychiatric exam: Present: normal affect, normal mood Skin exam: Present: warm, dry, intact. Absent: cyanosis, diaphoretic Course Vital Signs 04/01/20 04/01/20 04/01/20 08:32 09:01 09:11 Temperature 97.5 F L Pulse Rate 72 74 70 Respiratory 18 18 Rate Blood Pressure 120/80 105/51 O2 Sat by Pulse 96 98 Oximetry 04/01/20 04/01/20 09:21 09:30 Temperature Pulse Rate 77 70 Respiratory Rate Blood Pressure O2 Sat by Pulse Oximetry EKG Findings - EKG Comments: EKG Findings:: EKG: Demand pacemaker atrial fibrillation with PVC none paced beats have ST segment depression and T-wave inversion in V5 and V6 no ST segment elevation, rate of 73, QRS duration 116, QTC 508 Medical Decision Making - Medical Decision Making 85-year-old female with multifactorial dyspnea, COPD, recent diagnosis of pne umonia, and congestive heart failure. X-ray obtained, shows good aeration, no large focal pneumonia. Patient has elevated white blood cell count of 20, likely secondary to both pneumonia and steroid use. She has an elevated BNP at 12,000 and minimally elevated troponin of 0.046 with no active chest pain. I suspect this is from CHF rather than acute AL. She is anticoagulated on [place], troponin will be trended. She will be admitted to internal medicine, case has been discussed with Dr. Starks. - Lab Data Result diagrams: 04/01/20 08:53 04/01/20 08:53 Lab Results 04/01/20 04/01/20 04/01/20 Range/Units 08:53 08:53 08:53 WBC 20.6 H (3.8-10.6) k/uL RBC 3.93 (3.80-5.40) m/uL Hgb 11.4 (11.4-16.0) gm/dL Hct 36.1 (34.0-46.0) % MCV 91.8 (80.0-100.0) fL MCH 29.1 (25.0-35.0) pg MCHC 31.6 (31.0-37.0) g/dL RDW 14.1 (11.5-15.5) % Plt Count 422 (150-450) k/uL Neutrophils % 89 % Lymphocytes % 5 % Monocytes % 6 % Eosinophils % 1 % Basophils % 0 % Neutrophils # 18.2 H (1.3-7.7) k/uL Lymphocytes # 0.9 L (1.0-4.8) k/uL Monocytes # 1.2 H (0-1.0) k/uL Eosinophils # 0.1 (0-0.7) k/uL Basophils # 0.0 (0-0.2) k/uL Hypochromasia Moderate PT 11.6 (9.0-12.0) sec INR 1.1 (<1.2) APTT 23.2 (22.0-30.0) sec Sodium 136 L (137-145) mmol/L Potassium 3.6 (3.5-5.1) mmol/L Chloride 95 L (98-107) mmol/L Carbon Dioxide 32 H (22-30) mmol/L Anion Gap 9 mmol/L BUN 48 H (7-17) mg/dL Creatinine 1.10 H (0.52-1.04) mg/dL Est GFR (CKD-EPI)AfAm 53 (>60 ml/min/1.73 sqM) Est GFR (CKD-EPI)NonAf 46 (>60 ml/min/1.73 sqM) Glucose 143 H (74-99) mg/dL Plasma Lactic Acid Ricardo (0.7-2.0) mmol/L Calcium 9.0 (8.4-10.2) mg/dL Magnesium 2.2 (1.6-2.3) mg/dL Total Bilirubin 0.9 (0.2-1.3) mg/dL AST 21 (14-36) U/L ALT 13 (4-34) U/L Alkaline Phosphatase 75 (38-126) U/L Troponin I (0.000-0.034) ng/mL NT-Pro-B Natriuret Pep pg/mL Total Protein 5.8 L (6.3-8.2) g/dL Albumin 3.5 (3.5-5.0) g/dL 04/01/20 04/01/20 04/01/20 Range/Units 08:53 08:53 08:53 WBC (3.8-10.6) k/uL RBC (3.80-5.40) m/uL Hgb (11.4-16.0) gm/dL Hct (34.0-46.0) % MCV (80.0-100.0) fL MCH (25.0-35.0) pg MCHC (31.0-37.0) g/dL RDW (11.5-15.5) % Plt Count (150-450) k/uL Neutrophils % % Lymphocytes % % Monocytes % % Eosinophils % % Basophils % % Neutrophils # (1.3-7.7) k/uL Lymphocytes # (1.0-4.8) k/uL Monocytes # (0-1.0) k/uL Eosinophils # (0-0.7) k/uL Basophils # (0-0.2) k/uL Hypochromasia PT (9.0-12.0) sec INR (<1.2) APTT (22.0-30.0) sec Sodium (137-145) mmol/L Potassium (3.5-5.1) mmol/L Chloride (98-107) mmol/L Carbon Dioxide (22-30) mmol/L Anion Gap mmol/L BUN (7-17) mg/dL Creatinine (0.52-1.04) mg/dL Est GFR (CKD-EPI)AfAm (>60 ml/min/1.73 sqM) Est GFR (CKD-EPI)NonAf (>60 ml/min/1.73 sqM) Glucose (74-99) mg/dL Plasma Lactic Acid Ricardo 1.7 (0.7-2.0) mmol/L Calcium (8.4-10.2) mg/dL Magnesium (1.6-2.3) mg/dL Total Bilirubin (0.2-1.3) mg/dL AST (14-36) U/L ALT (4-34) U/L Alkaline Phosphatase (38-126) U/L Troponin I 0.046 H* (0.000-0.034) ng/mL NT-Pro-B Natriuret Pep 99414 pg/mL Total Protein (6.3-8.2) g/dL Albumin (3.5-5.0) g/dL Disposition Clinical Impression: COPD exacerbation, Congestive heart failure Disposition: ADMITTED IP TO THIS HOSP Condition: Stable Is patient prescribed a controlled substance at d/c from ED?: No Referrals: Royal Farias MD [Primary Care Provider] - 1-2 days Decision to Admit Reason: Admit from EC Decision Date: 04/01/20 Decision Time: 10:36
[2020-04-01 09:20] LABS: Basophils % (A) 0 %; Eosinophils # (A) 0.1 k/uL (0-0.7); Eosinophils % (A) 1 %; HCT 36.1 % (34.0-46.0); HGB 11.4 gm/dL (11.4-16.0); Hypochromasia Moderate; Lymphocytes # (A) 0.9 k/uL (1.0-4.8); Lymphocytes % (A) 5 %; MCH 29.1 pg (25.0-35.0); MCHC 31.6 g/dL (31.0-37.0); MCV 91.8 fL (80.0-100.0); Mean Platelet Volume 7.6; Monocytes # (A) 1.2 k/uL (0-1.0); Monocytes % (A) 6 %; Neutrophils # (A) 18.2 k/uL (1.3-7.7); Neutrophils % (A) 89 %; Platelet Count 422 k/uL (150-450); RBC 3.93 m/uL (3.80-5.40); RDW 14.1 % (11.5-15.5); WBC 20.6 k/uL (3.8-10.6)
[2020-04-01 09:28] LABS: INR 1.1 (<1.2); Prothrombin Time 11.6 sec (9.0-12.0)
[2020-04-01 09:29] LABS: Partial Thromboplastin Time 23.2 sec (22.0-30.0)
[2020-04-01 09:37] LABS: Albumin 3.5 g/dL (3.5-5.0); Magnesium 2.2 mg/dL (1.6-2.3); Potassium 3.6 mmol/L (3.5-5.1); Total Bilirubin 0.9 mg/dL (0.2-1.3); Total Protein 5.8 g/dL (6.3-8.2)
--- NOTE | 2020-04-01 10:01 | XR ---
EXAMINATION TYPE: XR chest 2V DATE OF EXAM: 04/01/2020 COMPARISON: Chest x-ray 6 days ago. CTA chest February 26, 2019. HISTORY: Difficulty in breathing. TECHNIQUE: Frontal and lateral views of the chest are obtained. FINDINGS: There is chronic parenchymal changes without suspicious focal air space opacity, pleural e ffusion, or pneumothorax seen. The cardiac silhouette size remains enlarged with dual lead pacemaker and atherosclerotic thoracic aorta. The osseous structures are demineralized. Mild compression typ e fracture deformities in the midthoracic spine are redemonstrated. IMPRESSION: Chronic changes and cardiomegaly without acute pulmonary process.
[2020-04-01] MEDS ORDERED: AZITHROMYCIN 500 MG in SODIUM CHLORIDE 0.9% 250 ML IVPB STA (10:16)
[2020-04-01] MEDS ORDERED: cefTRIAXone IN SWFI 1,000 MG/10 ML SYRINGE IVP STA (10:16)
[2020-04-01] MEDS ORDERED: IPRATROPIUM-ALBUTEROL 3 ML NEB INHALATION PRN (10:33)
[2020-04-01] MEDS ORDERED: FUROSEMIDE 10 MG/ML 4 ML VIAL IV STA (10:34)
[2020-04-01] MEDS: methylPREDNISolone SOD SUCCI 125 MG/2 ML VIAL IV SCH ×3 (12:11→23:40)
[2020-04-01] MEDS: IPRATROPIUM-ALBUTEROL 3 ML NEB INHALATION SCH ×3 (12:42→20:46)
[2020-04-01] MEDS ORDERED: FAMOTIDINE 20 MG TAB PO PRN (14:01)
--- NOTE | 2020-04-01 14:03 | P.HPIM ---
History of Present Illness This is a pleasant 85 years old female with past medical history of chronic heart failure, atrial fibrillation on Eliquis, COPD, asthma, diabetes mellitus, hypertension, hyperlipidemia, chronic back pain with compression fracture of T8. She follows with Dr. Malone her shingle weaver and Dr. Gibson her pt skilled. She is a patient of [facility]. Presents because of dyspnea and coughing. Patient was recently in this hospital for 5 day stay, discharged 2 days ago and mild asthma, after discharge she remained to be dyspneic which gradually got worse so she decided to come to emergency room. She has also cough with green-yellow phlegm, no chest pain but she has chronic low back pain. No change in urine or bowel habits. No fever. She never smoked and she denies alcohol She saturating 99% on 2 L oxygen via nasal cannula and she is afebrile. On admission she has leukocytosis of 20.6 K, creatinine slightly elevated at 1.1, normal 0.9-1.0, she has elevated troponin 0.046 Chest x-ray: No acute process, chronic changes. EKG showing paced rhythm at 73 with QTC of 508 In the emergency room she was given 1 dose of Zithromax and Rocephin, 1 dose of steroids and started on some Medrol 60 mg, also she got 1 dose of IV Lasix. Pulmonary team already consulted from emergency room, was noted to consult cardiology as well. Recent Echocardiogram on this year 10/2019 showed ejection fraction of 55-60% with severe concentric left ventricular hypertrophy, with severe mitral and tricuspid regurgitation Review of Systems CONSTITUTIONAL: No fever, no malaise, no fatigue. HEENT: No recent visual problems or hearing problems. Denied any sore throat. CARDIOVASCULAR: no palpitations, no syncope. PULMONARY: no hemoptysis. GASTROINTESTINAL: No diarrhea, no nausea, no vomiting, no abdominal pain. Normoactive bowel sounds. NEUROLOGICAL: No headaches, no weakness, no numbness. HEMATOLOGICAL: Denies any bleeding or petechiae. GENITOURINARY: Denies any burning micturition, frequency, or urgency. MUSCULOSKELETAL/RHEUMATOLOGICAL: Denies any joint pain, swelling, or any muscle pain. ENDOCRINE: Denies any polyuria or polydipsia. Past Medical History Past Medical History: Atrial Fibrillation, Asthma, Chest Pain / Angina, Heart Failure, COPD, Diabetes Mellitus, GERD/Reflux, Hyperlipidemia, Hypertension, Myocardial Infarction (DC), Osteoarthritis (OA), Pneumonia Additional Past Medical History / Comment(s): Pt recently admitted to [facility] on 03/26/20 wtih acute on chronic CHF, severe mitral/tricuspid regurgitation/mild protein calorie malnutrition. Other hx: Afib RVR, bradycardia with pacer, NIDDM type II, neuropathy bilateral feet, arthritis multiple joints, osteoporosis, chronic anemia, past falls, compression fracture T8-chronic back pain, past acute kidney injury and acute pancreatitis,chronic anemia, 2012 shingelles Last Myocardial Infarction Date:: 07/16/11 History of Any Multi-Drug Resistant Organisms: None Reported Past Surgical History: Appendectomy, Breast Surgery, Heart Catheterization, Pacemaker, Tubal Ligation Additional Past Surgical History / Comment(s): 02/2011 cardiac cath-normal, b enign L breast lumpectomy, bronchoscopy, EGD/colonoscopy, bilateral cataract removals, 2010 VATS L lung d/t fibrotic lung changes. Past Anesthesia/Blood Transfusion Reactions: No Reported Reaction Additional Past Anesthesia/Blood Transfusion Reaction / Comment(s): Pt has received blood in past without reaction Type of Cardiac Device: Permanent Pacemaker Device Placement Date:: NOVEMBER 28 2017 Smoking Status: Never smoker - Past Family History Sister(s) Family Medical History: Cancer Additional Family Medical History / Comment(s): breast CA Mother History Unknown: Yes Family Medical History: No Reported History Additional Family Medical History / Comment(s): from car accident no other hx known Father History Unknown: Yes Family Medical History: No Reported History Additional Family Medical History / Comment(s): committed suicide Daughter(s) Family Medical History: Cancer Additional Family Medical History / Comment(s): breast CA Medications and Allergies Home Medications Medication Instructions Recorded Confirmed Type Apixaban [Eliquis] 5 mg PO BID 11/24/14 04/01/20 History Glimepiride [Amaryl] 2 mg PO BID 06/07/15 04/01/20 History Nadolol [Corgard] 40 mg PO HS 05/20/16 04/01/20 History Amiodarone [Cordarone] 100 mg PO HS 11/27/17 04/01/20 History Omeprazole 40 mg PO DAILY 06/10/18 04/01/20 History Verapamil [Isoptin] 80 mg PO BID 06/10/18 04/01/20 History Fluticasone/Salmeterol [Advair 1 puff INHALATION RT-BID 06/03/19 04/01/20 History 500-50 Diskus] predniSONE See Taper PO DIRECTED 09/26/19 04/01/20 History Potassium Chloride 10 meq PO DAILY 10/22/19 04/01/20 History Baclofen 10 - 20 mg PO HS PRN 03/26/20 04/01/20 History Furosemide [Lasix] 40 mg PO DAILY 03/26/20 04/01/20 History HYDROcodone/APAP 10-325MG [[place] 1 tab PO Q4H PRN 03/26/20 04/01/20 History 10-325] Levalbuterol Nebulized [Xopenex 1.25 mg INHALATION RT-QID PRN 03/26/20 04/01/20 History Nebulized] Famotidine [Pepcid] 40 mg PO DAILY PRN 04/01/20 04/01/20 History Allergies Allergy/AdvReac Type Severity Reaction Status Date / Time diltiazem Allergy Itching Verified 04/01/20 09:37 morphine AdvReac Confusion Verified 04/01/20 09:37 Physical Exam Vitals: Vital Signs Temp Pulse Resp BP Pulse Ox 04/01/20 12:54 81 04/01/20 12:44 76 04/01/20 10:34 98.1 F 70 18 109/62 99 04/01/20 09:30 70 04/01/20 09:21 77 04/01/20 09:11 70 04/01/20 09:01 74 18 105/51 98 04/01/20 08:32 97.5 F L 72 18 120/80 96 Intake and Output 03/31/20 04/01/20 04/01/20 22:59 06:59 14:59 Output Total 450 Balance -450 Output: Urine 450 Other: Weight 59.421 kg GENERAL: The patient is alert and oriented x3, not in any acute distress. Well developed, well nourished. HEENT: Pupils are round and equally reacting to light. EOMI. No scleral icterus. No conjunctival pallor. Normocephalic, atraumatic. No pharyngeal erythema. No thyromegaly. CARDIOVASCULAR: S1 and S2 present. No murmurs, rubs, or gallops. -PULMONARY: Chest is clear to auscultation, scattered wheezing and bilateral basal crepitation ABDOMEN: Soft, nontender, nondistended, normoactive bowel sounds. No palpable organomegaly. MUSCULOSKELETAL: No joint swelling or deformity. -EXTREMITIES: No cyanosis, clubbing,. Bilateral leg edema NEUROLOGICAL: Gross neurological examination did not reveal any focal deficits. SKIN: No rashes. No petechiae Results CBC & Chem 7: 04/01/20 08:53 04/01/20 08:53 Labs: Abnormal Lab Results - Last 24 Hours (Table) 04/01/20 04/01/20 04/01/20 Range/Units 08:53 08:53 08:53 WBC 20.6 H (3.8-10.6) k/uL Neutrophils # 18.2 H (1.3-7.7) k/uL Lymphocytes # 0.9 L (1.0-4.8) k/uL Monocytes # 1.2 H (0-1.0) k/uL Sodium 136 L (137-145) mmol/L Chloride 95 L (98-107) mmol/L Carbon Dioxide 32 H (22-30) mmol/L BUN 48 H (7-17) mg/dL Creatinine 1.10 H (0.52-1.04) mg/dL Glucose 143 H (74-99) mg/dL Troponin I 0.046 H* (0.000-0.034) ng/mL Total Protein 5.8 L (6.3-8.2) g/dL Thrombosis Risk Factor Assmnt - Choose All That Apply Any of the Below Risk Factors Present?: Yes Each Factor Represents 1 point: Abnormal pulmonary function (COPD), Heart fail ure (<1month) Other Risk Factors: Yes Each Risk Factor Represents 3 Points: Age 75 years or older Other congenital or acquired thrombophilia - If yes, enter type in comment: No Thrombosis Risk Factor Assessment Total Risk Factor Score: 5 Thrombosis Risk Factor Assessment Level: High Risk Assessment and Plan Assessment: Acute on chronic diastolic CHF Acute COPD exacerbation Elevated troponin, rule out cardiac causes Severe mitral and tricuspid regurgitation Atrial fibrillation on Eliquis Diabetes mellitus Hypertension Hyperlipidemia Compression of fracture of T8 Plan: This is a pleasant 85 years old female who presents with COPD and CHF. Continue with diuretic, continue with antibiotics and breathing treatment. Continue with steroids. And Lasix. Follow-up recommendation by pt skilled and shingle weaver. Labs and medication were reviewed.. Continue same treatment. Continue with symptomatic treatment. Resume home medication. Monitor lytes and vitals. DVT and GI prophylaxis. Further recommendations of the clinical course of the patient DVT prophylaxis: Eliquis GI Prophylaxis: Pepcid PT/OT: Pending Prognosis is guarded
[2020-04-01 16:43] LABS: Glucose,Whole Blood 305 mg/dL (75-99)
[2020-04-01] MEDS: INSULIN ASPART (NovoLOG) 100 UNIT/ML VIAL SQ SCH ×2 (17:56→20:59)
[2020-04-01 20:44] LABS: Glucose,Whole Blood 250 mg/dL (75-99)
[2020-04-01] MEDS: GLIMEPIRIDE 2 MG TAB PO SCH (20:59)
[2020-04-01] MEDS: FUROSEMIDE 10 MG/ML 4 ML VIAL IV SCH (20:59)
[2020-04-01] MEDS: APIXABAN 5 MG TAB PO SCH (20:59)
[2020-04-01] MEDS: AMIODARONE 100 MG TAB PO SCH (20:59)
[2020-04-01] MEDS: VERAPAMIL 80 MG TAB PO SCH (20:59)
[2020-04-01] MEDS: BACLOFEN 10 MG TAB PO PRN (21:06)
[2020-04-01] MEDS: SYMBICORT 160-4.5 MCG INHALER INHALATION SCH (21:26)
[2020-04-02] MEDS: methylPREDNISolone SOD SUCCI 125 MG/2 ML VIAL IV SCH ×3 (05:29→17:55)
[2020-04-02 06:13] LABS: Glucose,Whole Blood 249 mg/dL (75-99)
[2020-04-02] MEDS: INSULIN ASPART (NovoLOG) 100 UNIT/ML VIAL SQ SCH ×4 (06:30→20:49)
[2020-04-02 06:51] LABS: Basophils % (A) 0 %; Eosinophils % (A) 0 %; HCT 28.8 % (34.0-46.0); Hypochromasia Moderate; Lymphocytes # (A) 0.5 k/uL (1.0-4.8); Lymphocytes % (A) 4 %; MCH 29.5 pg (25.0-35.0); MCHC 32.3 g/dL (31.0-37.0); MCV 91.5 fL (80.0-100.0); Mean Platelet Volume 7.7; Monocytes # (A) 0.2 k/uL (0-1.0); Monocytes % (A) 2 %; Neutrophils % (A) 94 %; Platelet Count 462 k/uL (150-450); RBC 3.15 m/uL (3.80-5.40); RDW 14.4 % (11.5-15.5); WBC 13.8 k/uL (3.8-10.6)
[2020-04-02 06:54] LABS: HGB 9.3 gm/dL (11.4-16.0)
[2020-04-02 06:55] LABS: Calcium 8.2 mg/dL (8.4-10.2); Magnesium 2.2 mg/dL (1.6-2.3); Potassium 3.7 mmol/L (3.5-5.1)
[2020-04-02] MEDS: IPRATROPIUM-ALBUTEROL 3 ML NEB INHALATION SCH ×4 (08:02→19:48)
[2020-04-02] MEDS: SYMBICORT 160-4.5 MCG INHALER INHALATION SCH ×2 (08:02→19:48)
--- NOTE | 2020-04-02 08:28 | P.PN ---
Subjective This is a pleasant 85 years old female with past medical history of chronic heart failure, atrial fibrillation on Eliquis, COPD, asthma, diabetes mellitus, hypertension, hyperlipidemia, chronic back pain with compression fracture of T8. She follows with Dr. Malone her pony worker and Dr. Gibson her brush painter. She is a patient of [facility]. Presents because of dyspnea and coughing. Patient was recently in this hospital for 5 day stay, discharged 2 days ago and mild asthma, after discharge she remained to be dyspneic which gradually got worse so she decided to come to emergency room. She has also cough with green-yellow phlegm, no chest pain but she has chronic low back pain. No change in urine or bowel habits. No fever. She never smoked and she denies alcohol She saturating 99% on 2 L oxygen via nasal cannula and she is afebrile. On admission she has leukocytosis of 20.6 K, creatinine slightly elevated at 1.1, normal 0.9-1.0, she has elevated troponin 0.046 Chest x-ray: No acute process, chronic changes. EKG showing paced rhythm at 73 with QTC of 508 In the emergency room she was given 1 dose of Zithromax and Rocephin, 1 dose of steroids and started on some Medrol 60 mg, also she got 1 dose of IV Lasix. Pulmonary team already consulted from emergency room, was noted to consult cardiology as well. Recent Echocardiogram on this year 10/2019 showed ejection fraction of 55-60% with severe concentric left ventricular hypertrophy, with severe mitral and tricuspid regurgitation 04/02/2020 Today patient feels better with less dyspnea however patient still tachypneic and still have coughing, she saturating 100% on 2 L oxygen via nasal cannula WBC improved down to 13.8 K, hemoglobin down to 9.3. Sugar is 250 She remains on Eliquis, Zithromax and ceftriaxone, IV Lasix 40 mg twice daily and some Medrol 60 mg Pulmonary and cardiology were consulted Review of Systems CONSTITUTIONAL: No fever, no malaise, no fatigue. HEENT: No recent visual problems or hearing problems. Denied any sore throat. CARDIOVASCULAR: no palpitations, no syncope. PULMONARY: no hemoptysis. GASTROINTESTINAL: No diarrhea, no nausea, no vomiting, no abdominal pain. Normoactive bowel sounds. NEUROLOGICAL: No headaches, no weakness, no numbness. HEMATOLOGICAL: Denies any bleeding or petechiae. GENITOURINARY: Denies any burning micturition, frequency, or urgency. MUSCULOSKELETAL/RHEUMATOLOGICAL: Denies any joint pain, swelling, or any muscle pain. ENDOCRINE: Denies any polyuria or polydipsia. Active Medications Generic Name Dose Route Start Last Admin Trade Name Freq PRN Reason Stop Dose Admin Hydrocodone Bitart/Acetaminophen 1 each 04/01/20 14:01 [place] 10 PO Q4H PRN Pain Albuterol/Ipratropium 3 ml 04/01/20 10:33 Duoneb 0.5 Mg-3 Mg/3 Ml Soln INHALATION RT-Q4H PRN Shortness Of Breath Or Wheezing Albuterol/Ipratropium 3 ml 04/01/20 12:00 04/02/20 08:02 Duoneb 0.5 Mg-3 Mg/3 Ml Soln INHALATION 3 ml RT-QID MITZY Administration Amiodarone HCl 100 mg 04/01/20 21:00 04/01/20 20:59 Cordarone PO 100 mg HS MITZY Administration Apixaban 5 mg 04/01/20 21:00 04/01/20 20:59 Eliquis PO 5 mg BID MITZY Administration Baclofen 10 mg 04/01/20 14:01 04/01/20 21:06 Lioresal PO 10 mg HS PRN Administration Muscle Spasm Budesonide/Formoterol Fumarate 2 puff 04/01/20 20:00 04/02/20 08:02 Symbicort 160-4.5 Mcg Inhaler INHALATION 2 puff RT-BID MITZY Administration Famotidine 40 mg 04/01/20 14:01 Pepcid PO DAILY PRN GI Upset Furosemide 40 mg 04/01/20 21:00 04/01/20 20:59 Lasix IV 40 mg Q12HR MITZY Administration Glimepiride 2 mg 04/01/20 21:00 04/01/20 20:59 Amaryl PO 2 mg BID MITZY Administration Ceftriaxone Sodium 1 gm/ 50 mls @ 100 mls/hr 04/02/20 09:00 Sodium Chloride IVPB Q24HR MITZY Azithromycin 500 mg/ Sodium 250 mls @ 250 mls/hr 04/02/20 09:00 Chloride IVPB DAILY MITZY Insulin Aspart 0 unit 04/01/20 17:30 04/02/20 06:30 Novolog SQ 8 unit ACHS MITZY Administration Protocol Methylprednisolone Sodium Succinate 60 mg 04/01/20 12:00 04/02/20 05:29 Solu-Medrol IV 60 mg Q6HR MITZY Administration Nadolol 40 mg 04/01/20 21:00 04/01/20 20:59 Corgard PO 40 mg HS MITZY Administration Potassium Chloride 10 meq 04/02/20 09:00 K-Dur 10 PO DAILY MITZY Verapamil HCl 80 mg 04/01/20 21:00 04/01/20 20:59 Isoptin PO 80 mg BID MITZY Administration Objective - Vital Signs Vital signs: Vital Signs Temp 98.2 F 04/01/20 20:00 Pulse 76 04/02/20 08:16 Resp 18 04/02/20 04:00 BP 105/56 04/02/20 04:00 Pulse Ox 100 04/02/20 08:02 Intake & Output 04/01/20 04/02/20 04/02/20 18:59 06:59 18:59 Intake Total 260 Output Total 650 Balance -650 260 Weight 59.421 kg 58.5 kg Intake: Oral 260 Output: Urine 650 Other: Voiding Method Bedside Commode Bedside Commode # Voids 3 - Exam GENERAL: The patient is alert and oriented x3, not in any acute distress. Well developed, well nourished. HEENT: Pupils are round and equally reacting to light. EOMI. No scleral icterus. No conjunctival pallor. Normocephalic, atraumatic. No pharyngeal erythema. No thyromegaly. CARDIOVASCULAR: S1 and S2 present. No murmurs, rubs, or gallops. -PULMONARY: Chest is clear to auscultation, no wheezing or. Bilateral digital and lower crepitation ABDOMEN: Soft, nontender, nondistended, normoactive bowel sounds. No palpable organomegaly. MUSCULOSKELETAL: No joint swelling or deformity. -EXTREMITIES: No cyanosis, clubbing, mild bilateral leg edema. NEUROLOGICAL: Gross neurological examination did not reveal any focal deficits. SKIN: No rashes. no petechiae. - Labs CBC & Chem 7: 04/02/20 05:27 04/02/20 05:27 Labs: Abnormal Lab Results - Last 24 Hours (Table) 04/01/20 04/01/20 04/01/20 Range/Units 08:53 08:53 08:53 WBC 20.6 H (3.8-10.6) k/uL RBC (3.80-5.40) m/uL Hgb (11.4-16.0) gm/dL Hct (34.0-46.0) % Plt Count (150-450) k/uL Neutrophils # 18.2 H (1.3-7.7) k/uL Lymphocytes # 0.9 L (1.0-4.8) k/uL Monocytes # 1.2 H (0-1.0) k/uL Sodium 136 L (137-145) mmol/L Chloride 95 L (98-107) mmol/L Carbon Dioxide 32 H (22-30) mmol/L BUN 48 H (7-17) mg/dL Creatinine 1.10 H (0.52-1.04) mg/dL Glucose 143 H (74-99) mg/dL POC Glucose (mg/dL) (75-99) mg/dL Calcium (8.4-10.2) mg/dL Troponin I 0.046 H* (0.000-0.034) ng/mL Total Protein 5.8 L (6.3-8.2) g/dL 04/01/20 04/01/20 04/01/20 Range/Units 13:01 16:42 20:42 WBC (3.8-10.6) k/uL RBC (3.80-5.40) m/uL Hgb (11.4-16.0) gm/dL Hct (34.0-46.0) % Plt Count (150-450) k/uL Neutrophils # (1.3-7.7) k/uL Lymphocytes # (1.0-4.8) k/uL Monocytes # (0-1.0) k/uL Sodium (137-145) mmol/L Chloride (98-107) mmol/L Carbon Dioxide (22-30) mmol/L BUN (7-17) mg/dL Creatinine (0.52-1.04) mg/dL Glucose (74-99) mg/dL POC Glucose (mg/dL) 305 H 250 H (75-99) mg/dL Calcium (8.4-10.2) mg/dL Troponin I 0.045 H* (0.000-0.034) ng/mL Total Protein (6.3-8.2) g/dL 04/02/20 04/02/20 04/02/20 Range/Units 05:27 05:27 06:12 WBC 13.8 H (3.8-10.6) k/uL RBC 3.15 L (3.80-5.40) m/uL Hgb 9.3 L D (11.4-16.0) gm/dL Hct 28.8 L (34.0-46.0) % Plt Count 462 H (150-450) k/uL Neutrophils # 13.0 H (1.3-7.7) k/uL Lymphocytes # 0.5 L (1.0-4.8) k/uL Monocytes # (0-1.0) k/uL Sodium (137-145) mmol/L Chloride (98-107) mmol/L Carbon Dioxide 32 H (22-30) mmol/L BUN 37 H (7-17) mg/dL Creatinine (0.52-1.04) mg/dL Glucose 201 H (74-99) mg/dL POC Glucose (mg/dL) 249 H (75-99) mg/dL Calcium 8.2 L (8.4-10.2) mg/dL Troponin I (0.000-0.034) ng/mL Total Protein (6.3-8.2) g/dL Assessment and Plan Assessment: Acute on chronic diastolic CHF Acute COPD exacerbation Elevated troponin, rule out cardiac causes Severe mitral and tricuspid regurgitation Atrial fibrillation on Eliquis Diabetes mellitus Hypertension Hyperlipidemia Compression of fracture of T8 Plan: This is a pleasant 85 years old female who presents with COPD and CHF. Continue with diuretic, continue with antibiotics and breathing treatment. Continue with steroids. And Lasix. Follow-up recommendation by brush painter and pony worker. Labs and medication were reviewed.. Continue same treatment. Continue with sym ptomatic treatment. Resume home medication. Monitor lytes and vitals. DVT and GI prophylaxis. Further recommendations of the clinical course of the patient DVT prophylaxis: Eliquis GI Prophylaxis: Pepcid PT/OT: Pending Prognosis is guarded
[2020-04-02] MEDS ORDERED: AZITHROMYCIN 500 MG in SODIUM CHLORIDE 0.9% 250 ML IVPB SCH (09:00)
[2020-04-02] MEDS: POTASSIUM CHLORIDE ER 10 MEQ TAB.ER.PRT PO SCH (10:37)
[2020-04-02] MEDS: APIXABAN 5 MG TAB PO SCH ×2 (10:37→21:02)
[2020-04-02] MEDS: GLIMEPIRIDE 2 MG TAB PO SCH ×2 (10:37→21:02)
[2020-04-02] MEDS: VERAPAMIL 80 MG TAB PO SCH ×2 (10:38→21:01)
[2020-04-02] MEDS: FUROSEMIDE 10 MG/ML 4 ML VIAL IV SCH ×2 (10:41→21:02)
[2020-04-02 11:35] LABS: Glucose,Whole Blood 254 mg/dL (75-99)
--- NOTE | 2020-04-02 12:10 | P.CNPUL ---
History of Present Illness Consult date: 04/02/20 Requesting physician: Jeremiah Starks Reason for consult: dyspnea Chief complaint: Shortness of breath History of present illness: This is a very pleasant 85-year-old female patient of Dr. Royal Farias, who also follows with Dr. Malone in our office, with known history of mild intermittent bronchial asthma, chronic CHF, diabetes mellitus, GERD/reflux, hypertension hyperlipidemia, previous episode of myocardial infarction, chronic A. fib on Eliquis, resides at [facility]. She was recently discharged from here with an exacerbation of COPD/congestive heart failure. She represented to the emergency room yesterday again with complaints of shortness of breath, generalized weakness, productive cough of yellow sputum. No fever, chills or night sweats. Chest x-ray reveals cardiomegaly but no acute pulmonary process. Blood culture reveals no growth to date. White count 13.8. Hemoglobin 9.3. Sodium 138. Potassium 3.7. Creatinine 0.82. She's been initiated on bronchodilators, IV Solu-Medrol, empiric antibiotics in the form of Eliquis, IV diuretics. Anticoagulated with Eliquis. She is seen today in consultation on the selective care unit. She is currently sitting up in a chair at the bedside. Awake and alert in no acute distress. No worsening shortness of breath, cough or congestion. No hemoptysis. Review of Systems REVIEW OF SYSTEMS: CONSTITUTIONAL: Denies any recent significant weight loss or weight gain. EYES: Denies change in vision. EARS, NOSE, MOUTH, THROAT: Denies headaches, denies sore throat. CARDIOVASCULAR: Denies chest pain, palpitations or syncopal episodes. RESPIRATORY: Positive for shortness of breath, cough, congestion no hemoptysis. GASTROINTESTINAL: Denies change in appetite, denies abdominal pain GENITOURINARY: Denies hematuria, denies infections. MUSKULOSKELETAL: Denies pain, denies swelling. INTEGUMENTARY: Denies rash, denies eczema. NEUROLOGICAL: Denies recent memory loss, no recent seizure activity. PSYCHIATRIC: Denies anxiety, denies depression. HEMATOLOGIC/LYMPHATIC: Denies anemia, denies enlarged lymph nodes. Past Medical History Past Medical History: Atrial Fibrillation, Asthma, Chest Pain / Angina, Heart Failure, COPD, Diabetes Mellitus, GERD/Reflux, Hyperlipidemia, Hypertension, Myocardial Infarction ([place]), Osteoarthritis (OA), Pneumonia Additional Past Medical History / Comment(s): Pt recently admitted to [facility] on 03/26/20 wtih acute on chronic CHF, severe mitral/tricuspid regurgitation/mild protein calorie malnutrition. Other hx: Afib RVR, bradycardia with pacer, NIDDM type II, neuropathy bilateral feet, arthritis multiple joints, osteoporosis, chronic anemia, past falls, compression fracture T8-chronic back pain, past acute kidney injury and acute pancreatitis,chronic anemia, 2012 shingel Last Myocardial Infarction Date:: 07/16/11 History of Any Multi-Drug Resistant Organisms: None Reported Past Surgical History: Appendectomy, Breast Surgery, Heart Catheterization, Pacemaker, Tubal Ligation Additional Past Surgical History / Comment(s): 02/2011 cardiac cath-normal, benign L breast lumpectomy, bronchoscopy, EGD/colonoscopy, bilateral cataract removals, 2010 VATS L lung d/t fibrotic lung changes. Past Anesthesia/Blood Transfusion Reactions: No Reported Reaction Additional Past Anesthesia/Blood Transfusion Reaction / Comment(s): Pt has received blood in past without reaction Type of Cardiac Device: Permanent Pacemaker Device Placement Date:: NOVEMBER 28 2017 Smoking Status: Never smoker - Past Family History Sister(s) Family Medical History: Cancer Additional Family Medical History / Comment(s): breast CA Mother History Unknown: Yes Family Medical History: No Reported History Additional Family Medical History / Comment(s): from car accident no other hx known Father History Unknown: Yes Family Medical History: No Reported History Additional Family Medical History / Comment(s): committed suicide Daughter(s) Family Medical History: Cancer Additional Family Medical History / Comment(s): breast CA Medications and Allergies Home Medications Medication Instructions Recorded Confirmed Type Apixaban [Eliquis] 5 mg PO BID 11/24/14 04/01/20 History Glimepiride [Amaryl] 2 mg PO BID 06/07/15 04/01/20 History Nadolol [Corgard] 40 mg PO HS 05/20/16 04/01/20 History Amiodarone [Cordarone] 100 mg PO HS 11/27/17 04/01/20 History Omeprazole 40 mg PO DAILY 06/10/18 04/01/20 History Verapamil [Isoptin] 80 mg PO BID 06/10/18 04/01/20 History Fluticasone/Salmeterol [Advair 1 puff INHALATION RT-BID 06/03/19 04/01/20 History 500-50 Diskus] predniSONE See Taper PO DIRECTED 09/26/19 04/01/20 History Potassium Chloride 10 meq PO DAILY 10/22/19 04/01/20 History Baclofen 10 - 20 mg PO HS PRN 03/26/20 04/01/20 History Furosemide [Lasix] 40 mg PO DAILY 03/26/20 04/01/20 History HYDROcodone/APAP 10-325MG [[place] 1 tab PO Q4H PRN 03/26/20 04/01/20 History 10-325] Levalbuterol Nebulized [Xopenex 1.25 mg INHALATION RT-QID PRN 03/26/20 04/01/20 History Nebulized] Famotidine [Pepcid] 40 mg PO DAILY PRN 04/01/20 04/01/20 History Allergies Allergy/AdvReac Type Severity Reaction Status Date / Time diltiazem Allergy Itching Verified 04/01/20 09:37 morphine AdvReac Confusion Verified 04/01/20 09:37 Physical Exam Vitals: Vital Signs Temp Pulse Pulse Resp BP BP Pulse Ox 04/02/20 11:26 66 04/02/20 11:16 69 04/02/20 08:30 75 18 106/57 98 04/02/20 08:16 76 04/02/20 08:02 74 100 04/02/20 04:00 70 18 105/56 98 04/02/20 00:00 70 18 87/46 98 04/01/20 20:46 75 04/01/20 20:00 98.2 F 75 18 102/63 99 04/01/20 16:30 98.1 F 78 16 100/61 98 04/01/20 16:15 78 16 04/01/20 15:39 97.8 F 82 16 123/88 100 04/01/20 13:56 60 20 103/50 96 04/01/20 12:54 81 04/01/20 12:44 76 04/01/20 12:30 78 16 101/55 98 Intake and Output 04/01/20 04/02/20 04/02/20 22:59 06:59 14:59 Intake Total 260 Output Total 100 Balance -100 260 Intake: Oral 260 Output: Urine 100 Other: Voiding Method Bedside Commode Bedside Commode Bedside Commode # Voids 3 Weight 58.5 kg GENERAL EXAM: Alert, pleasant 85-year-old female patient, on 2 L nasal cannula, comfortable in no apparent distress. HEAD: Normocephalic. EYES: Normal reaction of pupils, equal size. NOSE: Clear with pink turbinates. THROAT: No erythema or exudates. NECK: No masses, no JVD. CHEST: No chest wall deformity. LUNGS: Equal air entry with no crackles, wheeze, rhonchi or dullness. CVS: S1 and S2 normal with no audible murmur, regular rhythm. ABDOMEN: No hepatosplenomegaly, normal bowel sounds, no guarding or rigidity. SPINE: No scoliosis or deformity SKIN: No rashes CENTRAL NERVOUS SYSTEM: No focal deficits, tone is normal in all 4 extremities. EXTREMITIES: There is no peripheral edema. No clubbing, no cyanosis. Peripheral pulses are intact. Results - Laboratory Findings CBC and BMP: 04/02/20 05:27 04/02/20 05:27 PT/INR, D-dimer PT 11.6 sec (9.0-12.0) 04/01/20 08:53 INR 1.1 (<1.2) 04/01/20 08:53 Abnormal lab findings: Abnormal Labs 04/01/20 04/01/20 04/01/20 08:53 08:53 08:53 WBC 20.6 H RBC Hgb Hct Plt Count Neutrophils # 18.2 H Lymphocytes # 0.9 L Monocytes # 1.2 H Sodium 136 L Chloride 95 L Carbon Dioxide 32 H BUN 48 H Creatinine 1.10 H Glucose 143 H POC Glucose (mg/dL) Calcium Troponin I 0.046 H* Total Protein 5.8 L 04/01/20 04/01/20 04/01/20 13:01 16:42 20:42 WBC RBC Hgb Hct Plt Count Neutrophils # Lymphocytes # Monocytes # Sodium Chloride Carbon Dioxide BUN Creatinine Glucose POC Glucose (mg/dL) 305 H 250 H Calcium Troponin I 0.045 H* Total Protein 04/02/20 04/02/20 04/02/20 05:27 05:27 06:12 WBC 13.8 H RBC 3.15 L Hgb 9.3 L D Hct 28.8 L Plt Count 462 H Neutrophils # 13.0 H Lymphocytes # 0.5 L Monocytes # Sodium Chloride Carbon Dioxide 32 H BUN 37 H Creatinine Glucose 201 H POC Glucose (mg/dL) 249 H Calcium 8.2 L Troponin I Total Protein 04/02/20 11:34 WBC RBC Hgb Hct Plt Count Neutrophils # Lymphocytes # Monocytes # Sodium Chloride Carbon Dioxide BUN Creatinine Glucose POC Glucose (mg/dL) 254 H Calcium Troponin I Total Protein - Diagnostic Findings Chest x-ray: image reviewed (No acute pulmonary process) Assessment and Plan Assessment: #1. Acute exacerbation of chronic diastolic congestive heart failure with preserved left ventricular systolic function , with most recent echocardiogram c ompleted in October 2019 with an ejection fraction of 55-60% with severe concentric LVH and severe mitral and tricuspid regurgitation #2. Acute exacerbation of mild intermittent chronic bronchial asthma #3. Recent admission for this same #4. Chronic A. fib on Eliquis, post permanent pacemaker implantation #5. Diabetes mellitus type 2 #6. GERD/reflux #7. Hypertension #8. Hyperlipidemia #9. Osteoporosis #10. Chronic anemia #11. Anxiety depression #12. History of Enterococcus faecalis bacteremia and possibility of T8 discitis #13. Chronic back pain with compression fracture of T8 #14. Osteoarthritis Plan: The patient was seen and evaluated by Dr. Vogt Chest x-ray and labs reviewed Continue DuoNeb, Symbicort, IV Solu-Medrol Empiric antibiotics in form of azithromycin Continue diuretics Increase her activity as tolerated We'll continue to follow and make further recommendations based on her clinical status I, the cosigning physician, performed a history & physical examination of the patient. Lungs sounds are clear. Maintaining good O2 saturations in the 90s on 2 L/m per nasal cannula. I discussed the assessment and plan of care with my nurse practitioner, Rosario Yanes. I attest to the above consultation as dictated by her. Time with Patient: Greater than 30
[2020-04-02] MEDS ORDERED: FAMOTIDINE 20 MG TAB PO PRN (13:24)
[2020-04-02] MEDS: AZITHROMYCIN 500 MG TAB PO SCH (13:29)
--- NOTE | 2020-04-02 15:03 | P.CRDCN ---
History of Present Illness History of present illness: This is Heather Ramos PA-C dictating a consult on this patient The patient was interviewed and examined by me as well as by Dr. Serra Case discussed with Dr. Serra and he agrees with the plan of care HPI Patient is a 85-year-old female with a history of sick sinus syndrome status post permanent pacemaker implantation, persistent atrial fibrillation, diabetes, hypertension, dyslipidemia, diastolic heart failure who presented from [facility] with hypoxia. She follows with Dr. Gibson. She was recently discharged from the hospital 2 days ago after being treated for CHF and COPD exacerbation. She initially felt better when she went back to [facility] but then she be came short of breath again. Yesterday she was on the toilet and she cannot catch her breath. She denies any worsening orthopnea, no PND. Denies lower extremity edema. She has a cough which is chronic for her. No fevers. No chest pain. Her oxygen saturation dropped to 81% per the patient. She was sent back to the emergency department for [facility] for evaluation. Upon arrival to the emergency department patient was afebrile, pulse in the 70s, respirations 18, blood pressure 120/80, saturation 96% on room air. Chest x-ray showed chronic changes without any acute process. EKG showed atrial fibrillation with ventricular intermittent pacing. Labs are significant for WBC 20.6, hemoglobin 11.4, platelets 422, potassium 3.6, BUN 48, creatinine 1.1, troponin borderline abnormal. She's been admitted for treatment of CHF and COPD. Patient seen and examined sitting up in the chair. States her breathing is about the same. Denies chest pain. ROS: No fevers, chills or rigors, Positive for productive cough no nausea, vomiting or diarrhea, no hematuria, dysuria, Positive for back pain no strokes or seizures, no skin lesions. EXAMINATION: Patient is afebrile, pulse in the 70s, respirations 18, blood pressure 107/79, oxygen saturation 90% on 2 L nasal cannula Patient seen and examined sitting in the chair, in no acute distress Lungs are rhonchorous with few scattered crackles at the bases Heart is irregularly irregular, soft systolic murmur No elevated JVD No lower extremity edema REVIEW OF LABS, ECG & MEDICAL DATA recent echocardiogram shows EF 50-55%, RV mild to moderately enlarged, severe MR, severe pulmonary hypertension WBC 13.8, hemoglobin 9.3, platelets 462, potassium 3.9, BUN 37, creatinine 0.8 to Troponin 0.045, 0.046 IMPRESSION / ASSESSMENT: #1 shortness of breath, multifactorial, combination of CHF, diastolic, acute on chronic and COPD exacerbation #2 chronic asthma/COPD #3 persistent atrial fibrillation, rate controlled, on anticoagulation #4 diabetes #5 Hypertension #6 borderline abnormal troponins, flat, possibly secondary to hypoxia and respiratory distress #7 pulmonary hypertension #8 valvular heart disease PLAN: optimize medical management Continue IV Lasix Add atorvastatin 20 mg daily Continue anticoagulation Treatment of COPD per pulmonology Outpatient management of valvular heart disease when lungs improve Past Medical History Past Medical History: Atrial Fibrillation, Asthma, Chest Pain / Angina, Heart Failure, COPD, Diabetes Mellitus, GERD/Reflux, Hyperlipidemia, Hypertension, Myocardial Infarction ([place]), Osteoarthritis (OA), Pneumonia Additional Past Medical History / Comment(s): Pt recently admitted to [facility] on 03/26/20 wtih acute on chronic CHF, severe mitral/tricuspid regurgitation/mild protein calorie malnutrition. Other hx: Afib RVR, bradycardia with pacer, NIDDM type II, neuropathy bilateral feet, arthritis multiple joints, osteoporosis, chronic anemia, past falls, compression fracture T8-chronic back pain, past acute kidney injury and acute pancreatitis,chronic anemia, 2012 shingelles Last Myocardial Infarction Date:: 07/16/11 History of Any Multi-Drug Resistant Organisms: None Reported Past Surgical History: Appendectomy, Breast Surgery, Heart Catheterization, Pacemaker, Tubal Ligation Additional Past Surgical History / Comment(s): 02/2011 cardiac cath-normal, benign L breast lumpectomy, bronchoscopy, EGD/colonoscopy, bilateral cataract removals, 2010 VATS L lung d/t fibrotic lung changes. Past Anesthesia/Blood Transfusion Reactions: No Reported Reaction Additional Past Anesthesia/Blood Transfusion Reaction / Comment(s): Pt has received blood in past without reaction Type of Cardiac Device: Permanent Pacemaker Device Placement Date:: NOVEMBER 28 2017 Smoking Status: Never smoker - Past Family History Sister(s) Family Medical History: Cancer Additional Family Medical History / Comment(s): breast CA Mother History Unknown: Yes Family Medical History: No Reported History Additional Family Medical History / Comment(s): from car accident no other hx known Father History Unknown: Yes Family Medical History: No Reported History Additional Family Medical History / Comment(s): committed suicide Daughter(s) Family Medical History: Cancer Additional Family Medical History / Comment(s): breast CA Medications and Allergies Home Medications Medication Instructions Recorded Confirmed Type Apixaban [Eliquis] 5 mg PO BID 11/24/14 04/01/20 History Glimepiride [Amaryl] 2 mg PO BID 06/07/15 04/01/20 History Nadolol [Corgard] 40 mg PO HS 05/20/16 04/01/20 History Amiodarone [Cordarone] 100 mg PO HS 11/27/17 04/01/20 History Omeprazole 40 mg PO DAILY 06/10/18 04/01/20 History Verapamil [Isoptin] 80 mg PO BID 06/10/18 04/01/20 History Fluticasone/Salmeterol [Advair 1 puff INHALATION RT-BID 06/03/19 04/01/20 History 500-50 Diskus] predniSONE See Taper PO DIRECTED 09/26/19 04/01/20 History Potassium Chloride 10 meq PO DAILY 10/22/19 04/01/20 History Baclofen 10 - 20 mg PO HS PRN 03/26/20 04/01/20 History Furosemide [Lasix] 40 mg PO DAILY 03/26/20 04/01/20 History HYDROcodone/APAP 10-325MG [[place] 1 tab PO Q4H PRN 03/26/20 04/01/20 History 10-325] Levalbuterol Nebulized [Xopenex 1.25 mg INHALATION RT-QID PRN 03/26/20 04/01/20 History Nebulized] Famotidine [Pepcid] 40 mg PO DAILY PRN 04/01/20 04/01/20 History Allergies Allergy/AdvReac Type Severity Reaction Status Date / Time diltiazem Allergy Itching Verified 04/01/20 09:37 morphine AdvReac Confusion Verified 04/01/20 09:37 Physical Exam Vitals: Vital Signs Temp Pulse Pulse Resp BP BP Pulse Ox 04/02/20 11:45 71 18 107/79 98 04/02/20 11:26 66 04/02/20 11:16 69 04/02/20 08:30 75 18 106/57 98 04/02/20 08:16 76 04/02/20 08:02 74 100 04/02/20 04:00 70 18 105/56 98 04/02/20 00:00 70 18 87/46 98 04/01/20 20:46 75 04/01/20 20:00 98.2 F 75 18 102/63 99 04/01/20 16:30 98.1 F 78 16 100/61 98 04/01/20 16:15 78 16 04/01/20 15:39 97.8 F 82 16 123/88 100 Intake and Output 04/01/20 04/02/20 04/02/20 22:59 06:59 14:59 Intake Total 500 Output Total 100 Balance -100 500 Intake: Oral 500 Output: Urine 100 Other: Voiding Method Bedside Commode Bedside Commode Bedside Commode # Voids 3 3 # Bowel Movements 1 Weight 58.5 kg Results 04/02/20 05:27 04/02/20 05:27 CBC 04/02/20 Range/Units 05:27 WBC 13.8 H (3.8-10.6) k/uL RBC 3.15 L (3.80-5.40) m/uL Hgb 9.3 L D (11.4-16.0) gm/dL Hct 28.8 L (34.0-46.0) % Plt Count 462 H (150-450) k/uL Comprehensive Metabolic Panel 04/02/20 Range/Units 05:27 Sodium 138 (137-145) mmol/L Potassium 3.7 (3.5-5.1) mmol/L Chloride 98 (98-107) mmol/L Carbon Dioxide 32 H (22-30) mmol/L BUN 37 H (7-17) mg/dL Creatinine 0.82 (0.52-1.04) mg/dL Glucose 201 H (74-99) mg/dL Calcium 8.2 L (8.4-10.2) mg/dL Current Medications Generic Name Dose Route Start Last Admin Trade Name Freq PRN Reason Stop Dose Admin Hydrocodone Bitart/Acetaminophen 1 each 04/01/20 14:01 [place]ister 10 PO Q4H PRN Pain Albuterol/Ipratropium 3 ml 04/01/20 10:33 Duoneb 0.5 Mg-3 Mg/3 Ml Soln INHALATION RT-Q4H PRN Shortness Of Breath Or Wheezing Albuterol/Ipratropium 3 ml 04/01/20 12:00 04/02/20 11:14 Duoneb 0.5 Mg-3 Mg/3 Ml Soln INHALATION 3 ml RT-QID MITZY Administration Amiodarone HCl 100 mg 04/01/20 21:00 04/01/20 20:59 Cordarone PO 100 mg HS MITZY Administration Apixaban 5 mg 04/01/20 21:00 04/02/20 10:37 Eliquis PO 5 mg BID MITZY Administration Azithromycin 500 mg 04/02/20 14:00 04/02/20 13:29 Zithromax PO Not Given DAILY MITZY Baclofen 10 mg 04/01/20 14:01 04/01/20 21:06 Lioresal PO 10 mg HS PRN Administration Muscle Spasm Budesonide/Formoterol Fumarate 2 puff 04/01/20 20:00 04/02/20 08:02 Symbicort 160-4.5 Mcg Inhaler INHALATION 2 puff RT-BID MITZY Administration Famotidine 20 mg 04/02/20 13:24 Pepcid PO DAILY PRN GI Upset Furosemide 40 mg 04/01/20 21:00 04/02/20 10:41 Lasix IV 40 mg Q12HR MITZY Administration Glimepiride 2 mg 04/01/20 21:00 04/02/20 10:37 Amaryl PO 2 mg BID MITZY Administration Ceftriaxone Sodium 1 gm/ 50 mls @ 100 mls/hr 04/02/20 09:00 04/02/20 10:41 Sodium Chloride IVPB 100 mls/hr Q24HR MITZY Administration Insulin Aspart 0 unit 04/01/20 17:30 04/02/20 13:24 Novolog SQ 8 unit ACHS MITZY Administration Protocol Methylprednisolone Sodium Succinate 60 mg 04/01/20 12:00 04/02/20 13:22 Solu-Medrol IV 60 mg Q6HR MITZY Administration Nadolol 40 mg 04/01/20 21:00 04/01/20 20:59 Corgard PO 40 mg HS MITZY Administration Potassium Chloride 10 meq 04/02/20 09:00 04/02/20 10:37 K-Dur 10 PO 10 meq DAILY MITZY Administration Verapamil HCl 80 mg 04/01/20 21:00 04/02/20 10:38 Isoptin PO 80 mg BID MITZY Administration Intake and Output 04/01/20 04/02/20 04/02/20 22:59 06:59 14:59 Intake Total 500 Output Total 100 Balance -100 500 Intake: Oral 500 Output: Urine 100 Other: Voiding Method Bedside Commode Bedside Commode Bedside Commode # Voids 3 3 # Bowel Movements 1 Weight 58.5 kg 04/02/20 05:27 04/02/20 05:27
[2020-04-02] MEDS: HYDROcodone/APAP 10-325MG 1 EACH TAB PO PRN ×2 (15:04→21:01)
[2020-04-02 16:51] LABS: Glucose,Whole Blood 243 mg/dL (75-99)
[2020-04-02 20:33] LABS: Glucose,Whole Blood 119 mg/dL (75-99)
[2020-04-02] MEDS: ATORVASTATIN 20 MG TAB PO SCH (21:01)
[2020-04-02] MEDS: AMIODARONE 100 MG TAB PO SCH (21:01)
[2020-04-03] MEDS: methylPREDNISolone SOD SUCCI 125 MG/2 ML VIAL IV SCH ×4 (00:09→17:39)
[2020-04-03 06:13] LABS: Glucose,Whole Blood 243 mg/dL (75-99)
[2020-04-03] MEDS: INSULIN ASPART (NovoLOG) 100 UNIT/ML VIAL SQ SCH ×4 (06:35→21:12)
[2020-04-03 07:19] LABS: Basophils % (A) 0 %; Eosinophils % (A) 0 %; HCT 28.2 % (34.0-46.0); HGB 8.8 gm/dL (11.4-16.0); Hypochromasia Moderate; Lymphocytes # (A) 0.4 k/uL (1.0-4.8); Lymphocytes % (A) 2 %; MCH 28.2 pg (25.0-35.0); MCHC 31.1 g/dL (31.0-37.0); MCV 90.5 fL (80.0-100.0); Mean Platelet Volume 8.4; Monocytes # (A) 0.5 k/uL (0-1.0); Monocytes % (A) 3 %; Neutrophils # (A) 16.2 k/uL (1.3-7.7); Neutrophils % (A) 95 %; Platelet Count 457 k/uL (150-450); RBC 3.11 m/uL (3.80-5.40); RDW 14.5 % (11.5-15.5); WBC 17.1 k/uL (3.8-10.6)
[2020-04-03 07:43] LABS: Calcium 8.4 mg/dL (8.4-10.2); Magnesium 2.1 mg/dL (1.6-2.3); Potassium 3.6 mmol/L (3.5-5.1)
[2020-04-03] MEDS: IPRATROPIUM-ALBUTEROL 3 ML NEB INHALATION SCH ×4 (07:47→20:49)
[2020-04-03] MEDS: SYMBICORT 160-4.5 MCG INHALER INHALATION SCH ×2 (07:47→20:49)
[2020-04-03] MEDS: VERAPAMIL 80 MG TAB PO SCH ×2 (08:17→21:13)
[2020-04-03] MEDS: POTASSIUM CHLORIDE ER 10 MEQ TAB.ER.PRT PO SCH (08:18)
[2020-04-03] MEDS: FUROSEMIDE 10 MG/ML 4 ML VIAL IV SCH (08:18)
[2020-04-03] MEDS: APIXABAN 5 MG TAB PO SCH ×2 (08:18→21:13)
[2020-04-03] MEDS: GLIMEPIRIDE 2 MG TAB PO SCH ×2 (08:18→21:13)
[2020-04-03] MEDS: AZITHROMYCIN 500 MG TAB PO SCH (08:18)
[2020-04-03 11:39] LABS: Glucose,Whole Blood 205 mg/dL (75-99)
[2020-04-03 12:12] VITALS: BMI 23.6
--- NOTE | 2020-04-03 12:48 | XR ---
EXAMINATION TYPE: XR chest 1V portable DATE OF EXAM: 04/03/2020 CLINICAL HISTORY: CHF TECHNIQUE: Frontal portable view of the chest obtained. COMPARISON: Chest radiograph 04/01/2020 FINDINGS: Left-sided dual-chamber pacemaker device. Cardiomegaly and mediastinal silhouette is uncha nged. Pulmonary vasculature is normal. There is no focal air space opacity, pleural effusion, or pneu mothorax seen. Subsegmental atelectasis versus scarring over the right lung base. The osseous structu res are intact. IMPRESSION: Redemonstrated cardiomegaly. No evidence of pulmonary vascular congestion or acute pulmon scot process.
--- NOTE | 2020-04-03 14:05 | P.PN ---
Subjective Progress Note Date: 04/03/20 Principal diagnosis: Acute exacerbation of chronic diastolic congestive heart failure and acute exacerbation of mild intermittent asthma This is a very pleasant 85-year-old female patient of Dr. Royal Farias, who also follows with Dr. Malone in our office, with known history of mild intermittent bronchial asthma, chronic CHF, diabetes mellitus, GERD/reflux, hypertension hyperlipidemia, previous episode of myocardial infarction, chronic A. fib on Eliquis, resides at [facility]. She was recently discharged from here with an exacerbation of COPD/congestive heart failure. She represented to the emergency room yesterday again with complaints of shortness of breath, gene ralized weakness, productive cough of yellow sputum. No fever, chills or night sweats. Chest x-ray reveals cardiomegaly but no acute pulmonary process. Blood culture reveals no growth to date. White count 13.8. Hemoglobin 9.3. Sodium 138. Potassium 3.7. Creatinine 0.82. She's been initiated on bronchodilators, IV Solu-Medrol, empiric antibiotics in the form of Eliquis, IV diuretics. Anti coagulated with Eliquis. She is seen today in consultation on the selective care unit. She is currently sitting up in a chair at the bedside. Awake and alert in no acute distress. No worsening shortness of breath, cough or congestion. No hemoptysis. Patient was reevaluated today on 04/03/20, continues to have shortness of breath, and on physical examination continues to have crackles or rhonchi and wheezes bilaterally. Chest x-ray showed no evidence of congestive heart failure, but she does have cardiomegaly. Patient is on 2 L nasal cannula, O2 saturations 97%, she is in atrial fibrillation but rate controlled. Electrolytes are normal renal profile is normal WBC count is 17.1 hemoglobin is 8.8 Objective - Vital Signs Vital signs: Vital Signs Temp 98.1 F 04/03/20 10:38 Pulse 72 04/03/20 12:00 Resp 18 04/03/20 12:00 BP 111/55 04/03/20 10:38 Pulse Ox 97 04/03/20 10:38 Intake & Output 04/02/20 04/03/20 04/03/20 18:59 06:59 18:59 Intake Total 500 Balance 500 Weight 58.5 kg Intake: Oral 500 Other: Voiding Method Bedside Commode Toilet # Voids 3 1 # Bowel Movements 1 0 - Exam GENERAL EXAM: Alert, pleasant 85-year-old female patient, on 2 L nasal cannula, in no distress. HEENT: PERRLA, EOMI, no icterus, neck masses, no JVD. CHEST: No chest wall deformity. LUNGS: Equal air entry crackles and wheezes noted at the bases. CVS: S1 and S2 normal with no audible murmur, regular rhythm. ABDOMEN: No hepatosplenomegaly, normal bowel sounds, no guarding or rigidity. SPINE: No scoliosis or deformity SKIN: No rashes CENTRAL NERVOUS SYSTEM: No focal deficits, tone is normal in all 4 extremities. EXTREMITIES: There is no peripheral edema. No clubbing, no cyanosis. Peripheral pulses are intact. - Labs CBC & Chem 7: 04/03/20 06:04 04/03/20 06:04 Labs: Abnormal Lab Results - Last 24 Hours (Table) 04/02/20 04/02/20 04/03/20 Range/Units 16:50 20:31 06:04 WBC 17.1 H (3.8-10.6) k/uL RBC 3.11 L (3.80-5.40) m/uL Hgb 8.8 L (11.4-16.0) gm/dL Hct 28.2 L (34.0-46.0) % Plt Count 457 H (150-450) k/uL Neutrophils # 16.2 H (1.3-7.7) k/uL Lymphocytes # 0.4 L (1.0-4.8) k/uL Sodium (137-145) mmol/L BUN (7-17) mg/dL Glucose (74-99) mg/dL POC Glucose (mg/dL) 243 H 119 H (75-99) mg/dL 04/03/20 04/03/20 04/03/20 Range/Units 06:04 06:12 11:37 WBC (3.8-10.6) k/uL RBC (3.80-5.40) m/uL Hgb (11.4-16.0) gm/dL Hct (34.0-46.0) % Plt Count (150-450) k/uL Neutrophils # (1.3-7.7) k/uL Lymphocytes # (1.0-4.8) k/uL Sodium 136 L (137-145) mmol/L BUN 39 H (7-17) mg/dL Glucose 203 H (74-99) mg/dL POC Glucose (mg/dL) 243 H 205 H (75-99) mg/dL Microbiology - Last 24 Hours (Table) 04/01/20 08:53 Blood Culture - Preliminary Blood No Growth after 48 hours Assessment and Plan Assessment: Impression: Acute exacerbation of chronic diastolic congestive heart failure Acute exacerbation of mild intermittent asthma Chronic atrial fibrillation Type 2 diabetes History of Enterococcus faecalis bacteremia and discitis Chronic anemia Osteoporosis Dyslipidemia Recommendation: Continue present treatment plan including diuretics, Continue bronchodilators, Continue IV Solu-Medrol, Continue empiric Zithromax, Repeat chest x-ray is showing improvement but there is cardiomegaly and no clear-cut evidence of congestive heart failure on the follow-up chest x-ray today. Consider discharge planning in the next 24 hours. Time with Patient: Less than 30
--- NOTE | 2020-04-03 16:15 | P.PN ---
Subjective This is Heather Ramos PA-C dictating a progress note on this patient The patient was interviewed and examined by me as well as by Dr. Serra Case discussed with Dr. Serra and he agrees with the plan of care HPI/interval history Patient is a 85-year-old female with a history of sick sinus syndrome status post permanent pacemaker implantation, persistent atrial fibrillation, diabetes, hypertension, dyslipidemia, diastolic heart failure who presented from [facility] with hypoxia and shortness of breath. Recently discharged after being treated for CHF and COPD exacerbation. She has been started on IV Lasix long with antibiotics. Patient seen and examined sitting in the chair. States her breathing is about the same. Continues to complain of lower back pain. States she "tires easily". No chest pain or dizziness. EXAMINATION Patient is afebrile, pulse in the 70s, respirations 18, blood pressure 111/55, oxygen saturation 97% on 2 L nasal cannula Patient seen and examined sitting up in the chair in no acute distress Lungs reveal poor air entry air entry bilaterally, crackles at the bases bilaterally Heart is irregularly irregular, soft systolic murmur audible REVIEW OF LABS, ECG CBC 17.1, hemoglobin 8.8, platelets 457, potassium 3.6, BUN 39, creatinine 0.81 recent echocardiogram shows EF 50-55%, RV mild to moderately enlarged, severe MR, severe pulmonary hypertension IMPRESSION / ASSESSMENT: #1 shortness of breath, multifactorial, combination of CHF, diastolic, acute on chronic and COPD exacerbation #2 chronic asthma/COPD #3 persistent atrial fibrillation, rate controlled, on anticoagulation #4 diabetes #5 Hypertension #6 borderline abnormal troponins, flat, possibly secondary to hypoxia and respiratory distress #7 pulmonary hypertension #8 valvular heart disease PLAN: Switched oral Lasix 40 mg twice a day Stop amiodarone Monitor BMP Dr. Serra spoke with Dr. Gibson, he will evaluate the patient on Monday and may consider a KIKO to evaluate mitral valve Objective - Vital Signs Vital signs: Vital Signs Temp 98.1 F 04/03/20 10:38 Pulse 72 04/03/20 15:23 Resp 18 04/03/20 15:23 BP 111/55 04/03/20 10:38 Pulse Ox 97 04/03/20 10:38 Intake & Output 04/02/20 04/03/20 04/03/20 18:59 06:59 18:59 Intake Total 500 120 Balance 500 120 Weight 58.5 kg Intake: Oral 500 120 Other: Voiding Method Bedside Commode Toilet # Voids 3 1 # Bowel Movements 1 0 - Labs CBC & Chem 7: 04/03/20 06:04 04/03/20 06:04 Labs: Abnormal Lab Results - Last 24 Hours (Table) 04/02/20 04/02/20 04/03/20 Range/Units 16:50 20:31 06:04 WBC 17.1 H (3.8-10.6) k/uL RBC 3.11 L (3.80-5.40) m/uL Hgb 8.8 L (11.4-16.0) gm/dL Hct 28.2 L (34.0-46.0) % Plt Count 457 H (150-450) k/uL Neutrophils # 16.2 H (1.3-7.7) k/uL Lymphocytes # 0.4 L (1.0-4.8) k/uL Sodium (137-145) mmol/L BUN (7-17) mg/dL Glucose (74-99) mg/dL POC Glucose (mg/dL) 243 H 119 H (75-99) mg/dL 04/03/20 04/03/20 04/03/20 Range/Units 06:04 06:12 11:37 WBC (3.8-10.6) k/uL RBC (3.80-5.40) m/uL Hgb (11.4-16.0) gm/dL Hct (34.0-46.0) % Plt Count (150-450) k/uL Neutrophils # (1.3-7.7) k/uL Lymphocytes # (1.0-4.8) k/uL Sodium 136 L (137-145) mmol/L BUN 39 H (7-17) mg/dL Glucose 203 H (74-99) mg/dL POC Glucose (mg/dL) 243 H 205 H (75-99) mg/dL Microbiology - Last 24 Hours (Table) 04/01/20 08:53 Blood Culture - Preliminary Blood No Growth after 48 hours
[2020-04-03 16:54] LABS: Glucose,Whole Blood 186 mg/dL (75-99)
[2020-04-03] MEDS: FUROSEMIDE 40 MG TAB PO SCH (17:40)
--- NOTE | 2020-04-03 20:44 | P.PN ---
Subjective This is a pleasant 85 years old female with past medical history of chronic heart failure, atrial fibrillation on Eliquis, COPD, asthma, diabetes mellitus, hypertension, hyperlipidemia, chronic back pain with compression fracture of T8. She follows with Dr. Malone her screen printing loader unloader and Dr. Gibson her percussion instrument tuner. She is a patient of [facility]. Presents because of dyspnea and coughing. Patient was recently in this hospital for 5 day stay, discharged 2 days ago and mild asthma, after discharge she remained to be dyspneic which gradually got worse so she decided to come to emergency room. She has also cough with green-yellow phlegm, no chest pain but she has chronic low back pain. No change in urine or bowel habits. No fever. She never smoked and she denies alcohol She saturating 99% on 2 L oxygen via nasal cannula and she is afebrile. On admission she has leukocytosis of 20.6 K, creatinine slightly elevated at 1.1, normal 0.9-1.0, she has elevated troponin 0.046 Chest x-ray: No acute process, chronic changes. EKG showing paced rhythm at 73 with QTC of 508 In the emergency room she was given 1 dose of Zithromax and Rocephin, 1 dose of steroids and started on some Medrol 60 mg, also she got 1 dose of IV Lasix. Pulmonary team already consulted from emergency room, was noted to consult cardiology as well. Recent Echocardiogram on this year 10/2019 showed ejection fraction of 55-60% with severe concentric left ventricular hypertrophy, with severe mitral and tricuspid regurgitation 04/02/2020 Today patient feels better with less dyspnea however patient still tachypneic and still have coughing, she saturating 100% on 2 L oxygen via nasal cannula WBC improved down to 13.8 K, hemoglobin down to 9.3. Sugar is 250 She remains on Eliquis, Zithromax and ceftriaxone, IV Lasix 40 mg twice daily and some Medrol 60 mg Pulmonary and cardiology were consulted 04/03/2020 Patient clinically feels better although she is dyspneic but she is improved, however, is feeling better as well. Patient evaluated by percussion instrument tuner team this stop amiodarone and switched her Lasix to oral doses and the plan for KIKO on Monday for evaluation of her mitral valve disease. In the meantime she remains hemodynamically stable. She continued to be on Zithromax and Rocephin, oral Lasix and Solu-Medrol. Also she is on Eliquis Objective - Vital Signs Vital signs: Vital Signs Temp 97.7 F 04/03/20 16:00 Pulse 84 04/03/20 16:00 Resp 18 04/03/20 16:00 BP 121/62 04/03/20 16:00 Pulse Ox 97 04/03/20 16:00 Intake & Output 04/03/20 04/03/20 04/04/20 06:59 18:59 06:59 Intake Total 600 Balance 600 Weight 58.5 kg Intake: Oral 600 Other: Voiding Method Toilet # Voids 1 # Bowel Movements 0 - Exam GENERAL: The patient is alert and oriented x3, not in any acute distress. Well developed, well nourished. HEENT: Pupils are round and equally reacting to light. EOMI. No scleral icterus. No conjunctival pallor. Normocephalic, atraumatic. No pharyngeal erythema. No thyromegaly. CARDIOVASCULAR: S1 and S2 present. No murmurs, rubs, or gallops. -PULMONARY: Chest is clear to auscultation, no wheezing or. Bilateral digital and lower crepitation ABDOMEN: Soft, nontender, nondistended, normoactive bowel sounds. No palpable organomegaly. MUSCULOSKELETAL: No joint swelling or deformity. -EXTREMITIES: No cyanosis, clubbing, mild bilateral leg edema. NEUROLOGICAL: Gross neurological examination did not reveal any focal deficits. SKIN: No rashes. no petechiae. - Labs CBC & Chem 7: 04/03/20 06:04 04/03/20 06:04 Labs: Abnormal Lab Results - Last 24 Hours (Table) 04/03/20 04/03/20 04/03/20 Range/Units 06:04 06:04 06:12 WBC 17.1 H (3.8-10.6) k/uL RBC 3.11 L (3.80-5.40) m/uL Hgb 8.8 L (11.4-16.0) gm/dL Hct 28.2 L (34.0-46.0) % Plt Count 457 H (150-450) k/uL Neutrophils # 16.2 H (1.3-7.7) k/uL Lymphocytes # 0.4 L (1.0-4.8) k/uL Sodium 136 L (137-145) mmol/L BUN 39 H (7-17) mg/dL Glucose 203 H (74-99) mg/dL POC Glucose (mg/dL) 243 H (75-99) mg/dL 04/03/20 04/03/20 Range/Units 11:37 16:53 WBC (3.8-10.6) k/uL RBC (3.80-5.40) m/uL Hgb (11.4-16.0) gm/dL Hct (34.0-46.0) % Plt Count (150-450) k/uL Neutrophils # (1.3-7.7) k/uL Lymphocytes # (1.0-4.8) k/uL Sodium (137-145) mmol/L BUN (7-17) mg/dL Glucose (74-99) mg/dL POC Glucose (mg/dL) 205 H 186 H (75-99) mg/dL Microbiology - Last 24 Hours (Table) 04/01/20 08:53 Blood Culture - Preliminary Blood No Growth after 48 hours Assessment and Plan Assessment: Acute on chronic diastolic CHF Acute COPD exacerbation Elevated troponin, rule out cardiac causes Severe mitral and tricuspid regurgitation Atrial fibrillation on Eliquis Diabetes mellitus Hypertension Hyperlipidemia Compression of fracture of T8 Plan: This is a pleasant 85 years old female who presents with COPD and CHF. Continue with diuretic, continue with antibiotics and breathing treatment. Continue with steroids. And Lasix. Follow-up recommendation by percussion instrument tuner and screen printing loader unloader. KIKO on Monday for mitral valve evaluation Labs and medication were reviewed.. Continue same treatment. Continue with symptomatic treatment. Resume home medication. Monitor lytes and vitals. DVT and GI prophylaxis. Further recommendations of the clinical course of the patient DVT prophylaxis: Eliquis GI Prophylaxis: Pepcid PT/OT: Pending Prognosis is guarded
[2020-04-03 21:04] LABS: Glucose,Whole Blood 219 mg/dL (75-99)
[2020-04-03] MEDS: BACLOFEN 10 MG TAB PO PRN (21:12)
[2020-04-03] MEDS: ATORVASTATIN 20 MG TAB PO SCH (21:13)
[2020-04-04] MEDS: methylPREDNISolone SOD SUCCI 125 MG/2 ML VIAL IV SCH ×5 (00:10→23:25)
[2020-04-04 06:18] LABS: Glucose,Whole Blood 170 mg/dL (75-99)
[2020-04-04 06:44] LABS: Basophils % (A) 0 %; Eosinophils % (A) 0 %; HCT 26.9 % (34.0-46.0); HGB 8.8 gm/dL (11.4-16.0); Hypochromasia Moderate; Lymphocytes # (A) 0.3 k/uL (1.0-4.8); Lymphocytes % (A) 3 %; MCH 29.3 pg (25.0-35.0); MCHC 32.6 g/dL (31.0-37.0); MCV 89.9 fL (80.0-100.0); Mean Platelet Volume 7.4; Monocytes # (A) 0.4 k/uL (0-1.0); Monocytes % (A) 4 %; Neutrophils # (A) 10.9 k/uL (1.3-7.7); Neutrophils % (A) 93 %; Platelet Count 455 k/uL (150-450); RBC 2.99 m/uL (3.80-5.40); RDW 14.2 % (11.5-15.5); WBC 11.7 k/uL (3.8-10.6)
[2020-04-04] MEDS: INSULIN ASPART (NovoLOG) 100 UNIT/ML VIAL SQ SCH ×4 (06:55→20:37)
[2020-04-04 06:57] LABS: Calcium 8.4 mg/dL (8.4-10.2); Magnesium 2.1 mg/dL (1.6-2.3)
[2020-04-04] MEDS: SYMBICORT 160-4.5 MCG INHALER INHALATION SCH ×2 (07:45→19:48)
[2020-04-04] MEDS: IPRATROPIUM-ALBUTEROL 3 ML NEB INHALATION SCH ×4 (07:45→19:48)
[2020-04-04] MEDS: FUROSEMIDE 40 MG TAB PO SCH ×2 (08:54→16:10)
[2020-04-04] MEDS: GLIMEPIRIDE 2 MG TAB PO SCH ×2 (08:54→20:34)
[2020-04-04] MEDS: VERAPAMIL 80 MG TAB PO SCH ×2 (08:54→20:34)
[2020-04-04] MEDS: APIXABAN 5 MG TAB PO SCH ×2 (08:54→20:34)
[2020-04-04] MEDS: POTASSIUM CHLORIDE ER 10 MEQ TAB.ER.PRT PO SCH (08:54)
[2020-04-04] MEDS: AZITHROMYCIN 500 MG TAB PO SCH (08:54)
[2020-04-04 12:19] LABS: Glucose,Whole Blood 304 mg/dL (75-99)
--- NOTE | 2020-04-04 12:55 | P.PN ---
Subjective Progress Note Date: 04/04/20 Principal diagnosis: Acute exacerbation of diastolic congestive heart failure with an acute exacerbation of mild intermittent asthma This is a very pleasant 85-year-old female patient of Dr. Royal Farias, who also follows with Dr. Malone in our office, with known history of mild intermittent bronchial asthma, chronic CHF, diabetes mellitus, GERD/reflux, hypertension hyperlipidemia, previous episode of myocardial infarction, chronic A. fib on Eliquis, resides at [facility]. She was recently discharged from here with an exacerbation of COPD/congestive heart failure. She represented to the emergency room yesterday again with complaints of shortness of breath, generalized weakness, productive cough of yellow sputum. No fever, chills or night sweats. Chest x-ray reveals cardiomegaly but no acute pulmonary process. Blood culture reveals no growth to date. White count 13.8. Hemoglobin 9.3. Sodium 138. Potassium 3.7. Creatinine 0.82. She's been initiated on bronchodilators, IV Solu-Medrol, empiric antibiotics in the form of Eliquis, IV diuretics. Anticoagulated with Eliquis. She is seen today in consultation on the selective care unit. She is currently sitting up in a chair at the bedside. Awake and alert in no acute distress. No worsening shortness of breath, cough or congestion. No hemoptysis. Patient was reevaluated today on 04/03/20, continues to have shortness of breath, and on physical examination continues to have crackles or rhonchi and wheezes bilaterally. Chest x-ray showed no evidence of congestive heart failure, but she does have cardiomegaly. Patient is on 2 L nasal cannula, O2 saturations 97%, she is in atrial fibrillation but rate controlled. Electrolytes are normal renal profile is normal WBC count is 17.1 hemoglobin is 8.8 The patient is seen today 04/04/2020 in follow-up on the selective care unit. She is currently sitting up in a chair at the bedside. Awake and alert in no acute distress. She is feeling better today as compared to yesterday. No worsening shortness of breath, cough or congestion. No chest pain. She is maintaining good O2 saturations in the high 90s on room air. She's afebrile. Hemodynamically stable. Blood culture revealed no growth. White count 11.7. Hemoglobin 8.8. Sodium 139. Potassium 3.0. Chloride 97. Bicarb 33. Creatinine 0.86. Objective - Vital Signs Vital signs: Vital Signs Temp 98.2 F 04/04/20 11:40 Pulse 58 L 04/04/20 11:40 Resp 18 04/04/20 11:40 BP 111/56 04/04/20 11:40 Pulse Ox 99 04/04/20 11:40 Intake & Output 04/03/20 04/04/20 04/04/20 18:59 06:59 18:59 Intake Total 600 200 Output Total 0 Balance 600 200 Weight 58.5 kg 58.6 kg Intake: Oral 600 200 Output: Urine 0 Other: Voiding Method Toilet Toilet # Voids 1 1 # Bowel Movements 0 - Exam GENERAL EXAM: Alert, pleasant 85-year-old female patient, on room air, in no distress. HEENT: PERRLA, EOMI, no icterus, neck masses, no JVD. CHEST: No chest wall deformity. LUNGS: Equal air entry crackles and wheezes noted at the bases. CVS: S1 and S2 normal with an audible murmur, irregular rhythm. ABDOMEN: No hepatosplenomegaly, normal bowel sounds, no guarding or rigidity. SPINE: No scoliosis or deformity SKIN: No rashes CENTRAL NERVOUS SYSTEM: No focal deficits, tone is normal in all 4 extremities. EXTREMITIES: There is no peripheral edema. No clubbing, no cyanosis. Peripheral pulses are intact. - Labs CBC & Chem 7: 04/04/20 06:21 04/04/20 06:21 Labs: Abnormal Lab Results - Last 24 Hours (Table) 04/03/20 04/03/20 04/04/20 Range/Units 16:53 21:03 06:09 WBC (3.8-10.6) k/uL RBC (3.80-5.40) m/uL Hgb (11.4-16.0) gm/dL Hct (34.0-46.0) % Plt Count (150-450) k/uL Neutrophils # (1.3-7.7) k/uL Lymphocytes # (1.0-4.8) k/uL Potassium (3.5-5.1) mmol/L Chloride (98-107) mmol/L Carbon Dioxide (22-30) mmol/L BUN (7-17) mg/dL Glucose (74-99) mg/dL POC Glucose (mg/dL) 186 H 219 H 170 H (75-99) mg/dL 04/04/20 04/04/20 04/04/20 Range/Units 06:21 06:21 11:43 WBC 11.7 H (3.8-10.6) k/uL RBC 2.99 L (3.80-5.40) m/uL Hgb 8.8 L (11.4-16.0) gm/dL Hct 26.9 L (34.0-46.0) % Plt Count 455 H (150-450) k/uL Neutrophils # 10.9 H (1.3-7.7) k/uL Lymphocytes # 0.3 L (1.0-4.8) k/uL Potassium 3.0 L (3.5-5.1) mmol/L Chloride 97 L (98-107) mmol/L Carbon Dioxide 33 H (22-30) mmol/L BUN 39 H (7-17) mg/dL Glucose 162 H (74-99) mg/dL POC Glucose (mg/dL) 304 H (75-99) mg/dL Microbiology - Last 24 Hours (Table) 04/01/20 08:53 Blood Culture - Preliminary Blood No Growth after 72 hours Assessment and Plan Assessment: #1. Acute exacerbation of chronic diastolic congestive heart failure with preserved left ventricular systolic function , with most recent echocardiogram completed in October 2019 with an ejection fraction of 55-60% with severe concentric LVH and severe mitral and tricuspid regurgitation #2. Acute exacerbation of mild intermittent chronic bronchial asthma #3. Recent admission for this same #4. Chronic A. fib on Eliquis, post permanent pacemaker implantation #5. Diabetes mellitus type 2 #6. GERD/reflux #7. Hypertension #8. Hyperlipidemia #9. Osteoporosis #10. Chronic anemia #11. Anxiety depression #12. History of Enterococcus faecalis bacteremia and possibility of T8 discitis #13. Chronic back pain with compression fracture of T8 #14. Osteoarthritis Plan: The patient was seen and evaluated by Dr. Torie Max from the pulmonary standpoint Continue DuoNeb, Symbicort, IV Solu-Medrol Empiric antibiotics in form of ceftriaxone and azithromycin Continue diuretics Increase her activity as tolerated Plan is for possible KIKO per cardiology We'll continue to follow and make further recommendations based on her clinical status I, the cosigning physician, performed a history & physical examination of the patient. Lungs sounds are clear, diminished. Maintaining good O2 saturations in the 90s on room air. I discussed the assessment and plan of care with my nurse practitioner, Rosario Yanes. I attest to the above note as dictated by her.
--- NOTE | 2020-04-04 16:28 | P.PN ---
Subjective Patient is feeling a little better. She feels less short of breath however her lungs sounds are rhonchorous bilaterally but decreased breath sounds. She has severe COPD, She is soft systolic murmur which she has severe mitral regurgitation 2-D echo No chest discomfort Sitting comfortably in a chair Blood pressure 118/53 mmHg pulse rate in the 60s afebrile 97.3F Breath sounds are reduced bilaterally bilateral rhonchi Heart sounds are soft systolic murmur Abdomen soft nontender No lower extremity edema Impression shortness of breath on exertion likely multifactorial Severe COPD Severe MR Our plan is to perform KIKO on Monday, Dr. Glaser who is a primary earrings fabricator based upon herstatus to evaluate her for mitral regurgitation therapies if clinically appropriate based upon the anatomy of the mitral valve She is nothing by mouth Monday morning for the procedure Objective - Vital Signs Vital signs: Vital Signs Temp 97.3 F L 04/04/20 16:15 Pulse 69 04/04/20 16:15 Resp 18 04/04/20 16:15 BP 118/53 04/04/20 16:15 Pulse Ox 97 04/04/20 16:15 Intake & Output 04/03/20 04/04/20 04/04/20 18:59 06:59 18:59 Intake Total 600 430 Output Total 350 Balance 600 80 Weight 58.5 kg 58.6 kg Intake: Intake, IV Titration 50 Amount cefTRIAXone 1 gm In 50 Sodium Chloride 0.9% 50 ml @ 100 mls/hr IVPB Q24HR [facility] Rx#:[id number] Oral 600 380 Output: Urine 350 Other: Voiding Method Toilet Toilet # Voids 1 1 1 # Bowel Movements 0 0 - Labs CBC & Chem 7: 04/04/20 06:21 04/04/20 06:21 Labs: Abnormal Lab Results - Last 24 Hours (Table) 04/03/20 04/03/20 04/04/20 Range/Units 16:53 21:03 06:09 WBC (3.8-10.6) k/uL RBC (3.80-5.40) m/uL Hgb (11.4-16.0) gm/dL Hct (34.0-46.0) % Plt Count (150-450) k/uL Neutrophils # (1.3-7.7) k/uL Lymphocytes # (1.0-4.8) k/uL Potassium (3.5-5.1) mmol/L Chloride (98-107) mmol/L Carbon Dioxide (22-30) mmol/L BUN (7-17) mg/dL Glucose (74-99) mg/dL POC Glucose (mg/dL) 186 H 219 H 170 H (75-99) mg/dL 04/04/20 04/04/20 04/04/20 Range/Units 06:21 06:21 11:43 WBC 11.7 H (3.8-10.6) k/uL RBC 2.99 L (3.80-5.40) m/uL Hgb 8.8 L (11.4-16.0) gm/dL Hct 26.9 L (34.0-46.0) % Plt Count 455 H (150-450) k/uL Neutrophils # 10.9 H (1.3-7.7) k/uL Lymphocytes # 0.3 L (1.0-4.8) k/uL Potassium 3.0 L (3.5-5.1) mmol/L Chloride 97 L (98-107) mmol/L Carbon Dioxide 33 H (22-30) mmol/L BUN 39 H (7-17) mg/dL Glucose 162 H (74-99) mg/dL POC Glucose (mg/dL) 304 H (75-99) mg/dL Microbiology - Last 24 Hours (Table) 04/01/20 08:53 Blood Culture - Preliminary Blood No Growth after 72 hours
[2020-04-04 17:27] LABS: Glucose,Whole Blood 201 mg/dL (75-99)
--- NOTE | 2020-04-04 20:17 | P.PN ---
Subjective This is a pleasant 85 years old female with past medical history of chronic heart failure, atrial fibrillation on Eliquis, COPD, asthma, diabetes mellitus, hypertension, hyperlipidemia, chronic back pain with compression fracture of T8. She follows with Dr. Malone her checkerer hand and Dr. Gibson her yard caller. She is a patient of [facility]. Presents because of dyspnea and coughing. Patient was recently in this hospital for 5 day stay, discharged 2 days ago and mild asthma, after discharge she remained to be dyspneic which gradually got worse so she decided to come to emergency room. She has also cough with green-yellow phlegm, no chest pain but she has chronic low back pain. No change in urine or bowel habits. No fever. She never smoked and she denies alcohol She saturating 99% on 2 L oxygen via nasal cannula and she is afebrile. On admission she has leukocytosis of 20.6 K, creatinine slightly elevated at 1.1, normal 0.9-1.0, she has elevated troponin 0.046 Chest x-ray: No acute process, chronic changes. EKG showing paced rhythm at 73 with QTC of 508 In the emergency room she was given 1 dose of Zithromax and Rocephin, 1 dose of steroids and started on some Medrol 60 mg, also she got 1 dose of IV Lasix. Pulmonary team already consulted from emergency room, was noted to consult cardiology as well. Recent Echocardiogram on this year 10/2019 showed ejection fraction of 55-60% with severe concentric left ventricular hypertrophy, with severe mitral and tricuspid regurgitation 04/02/2020 Today patient feels better with less dyspnea however patient still tachypneic and still have coughing, she saturating 100% on 2 L oxygen via nasal cannula WBC improved down to 13.8 K, hemoglobin down to 9.3. Sugar is 250 She remains on Eliquis, Zithromax and ceftriaxone, IV Lasix 40 mg twice daily and some Medrol 60 mg Pulmonary and cardiology were consulted 04/03/2020 Patient clinically feels better although she is dyspneic but she is improved, however, is feeling better as well. Patient evaluated by yard caller team this stop amiodarone and switched her Lasix to oral doses and the plan for KIKO on Monday for evaluation of her mitral valve disease. In the meantime she remains hemodynamically stable. She continued to be on Zithromax and Rocephin, oral Lasix and Solu-Medrol. Also she is on Eliquis 04/04/2020 Patient feeling even better today with less dyspnea and more easier breathing. The plan is to undergo KIKO on Monday for evaluation of mitral valve disease given her multiple admissions with heart failure The patient vitals are stable, her WBCs trending down while she is on Zithromax and ceftriaxone for possible infection elements in her respiratory tract, also she is to continue on steroids Objective - Vital Signs Vital signs: Vital Signs Temp 97.3 F L 04/04/20 16:15 Pulse 68 04/04/20 20:01 Resp 18 04/04/20 16:15 BP 118/53 04/04/20 16:15 Pulse Ox 97 04/04/20 16:15 Intake & Output 04/04/20 04/04/20 04/05/20 06:59 18:59 06:59 Intake Total 660 Output Total 750 Balance -90 Weight 58.6 kg Intake: Intake, IV Titration 50 Amount cefTRIAXone 1 gm In 50 Sodium Chloride 0.9% 50 ml @ 100 mls/hr IVPB Q24HR [facility] Rx#:[id number] Oral 610 Output: Urine 750 Other: Voiding Method Toilet Toilet # Voids 1 1 # Bowel Movements 0 - Exam GENERAL: The patient is alert and oriented x3, not in any acute distress. Well developed, well nourished. HEENT: Pupils are round and equally reacting to light. EOMI. No scleral icterus. No conjunctival pallor. Normocephalic, atraumatic. No pharyngeal erythema. No thyromegaly. CARDIOVASCULAR: S1 and S2 present. No murmurs, rubs, or gallops. -PULMONARY: Chest is clear to auscultation, no wheezing or. Bilateral digital and lower crepitation ABDOMEN: Soft, nontender, nondistended, normoactive bowel sounds. No palpable organomegaly. MUSCULOSKELETAL: No joint swelling or deformity. -EXTREMITIES: No cyanosis, clubbing, mild bilateral leg edema. NEUROLOGICAL: Gross neurological examination did not reveal any focal deficits. SKIN: No rashes. no petechiae. - Labs CBC & Chem 7: 04/04/20 06:21 04/04/20 06:21 Labs: Abnormal Lab Results - Last 24 Hours (Table) 04/03/20 04/04/20 04/04/20 Range/Units 21:03 06:09 06:21 WBC 11.7 H (3.8-10.6) k/uL RBC 2.99 L (3.80-5.40) m/uL Hgb 8.8 L (11.4-16.0) gm/dL Hct 26.9 L (34.0-46.0) % Plt Count 455 H (150-450) k/uL Neutrophils # 10.9 H (1.3-7.7) k/uL Lymphocytes # 0.3 L (1.0-4.8) k/uL Potassium (3.5-5.1) mmol/L Chloride (98-107) mmol/L Carbon Dioxide (22-30) mmol/L BUN (7-17) mg/dL Glucose (74-99) mg/dL POC Glucose (mg/dL) 219 H 170 H (75-99) mg/dL 04/04/20 04/04/20 04/04/20 Range/Units 06:21 11:43 17:23 WBC (3.8-10.6) k/uL RBC (3.80-5.40) m/uL Hgb (11.4-16.0) gm/dL Hct (34.0-46.0) % Plt Count (150-450) k/uL Neutrophils # (1.3-7.7) k/uL Lymphocytes # (1.0-4.8) k/uL Potassium 3.0 L (3.5-5.1) mmol/L Chloride 97 L (98-107) mmol/L Carbon Dioxide 33 H (22-30) mmol/L BUN 39 H (7-17) mg/dL Glucose 162 H (74-99) mg/dL POC Glucose (mg/dL) 304 H 201 H (75-99) mg/dL Microbiology - Last 24 Hours (Table) 04/01/20 08:53 Blood Culture - Preliminary Blood No Growth after 72 hours Assessment and Plan Assessment: Acute on chronic diastolic CHF Acute COPD exacerbation Elevated troponin, rule out cardiac causes Severe mitral and tricuspid regurgitation, Atrial fibrillation on Eliquis Diabetes mellitus Hypertension Hyperlipidemia Compression of fracture of T8 Plan: This is a pleasant 85 years old female who presents with COPD and CHF. Continue with diuretic, continue with antibiotics and breathing treatment. Continue with steroids. And Lasix. Follow-up recommendation by yard caller and checkerer hand. KIKO on Monday for mitral valve evaluation Labs and medication were reviewed.. Continue same treatment. Continue with symptomatic treatment. Resume home medication. Monitor lytes and vitals. DVT and GI prophylaxis. Further recommendations of the clinical course of the patient DVT prophylaxis: Eliquis GI Prophylaxis: Pepcid PT/OT: Pending Prognosis is guarded
[2020-04-04 20:32] LABS: Glucose,Whole Blood 108 mg/dL (75-99)
[2020-04-04] MEDS: ATORVASTATIN 20 MG TAB PO SCH (20:34)
[2020-04-04] MEDS: BACLOFEN 10 MG TAB PO PRN (21:21)
[2020-04-05] MEDS: methylPREDNISolone SOD SUCCI 125 MG/2 ML VIAL IV SCH ×4 (05:25→23:50)
[2020-04-05 06:10] LABS: Glucose,Whole Blood 142 mg/dL (75-99)
[2020-04-05] MEDS: INSULIN ASPART (NovoLOG) 100 UNIT/ML VIAL SQ SCH ×4 (06:59→20:09)
[2020-04-05] MEDS: IPRATROPIUM-ALBUTEROL 3 ML NEB INHALATION SCH ×4 (08:18→20:14)
[2020-04-05] MEDS: SYMBICORT 160-4.5 MCG INHALER INHALATION SCH ×2 (08:18→20:14)
[2020-04-05] MEDS: POTASSIUM CHLORIDE ER 10 MEQ TAB.ER.PRT PO SCH (08:36)
[2020-04-05] MEDS: AZITHROMYCIN 500 MG TAB PO SCH (08:36)
[2020-04-05] MEDS: APIXABAN 5 MG TAB PO SCH ×2 (08:36→20:02)
[2020-04-05] MEDS: FUROSEMIDE 40 MG TAB PO SCH (08:36)
[2020-04-05] MEDS: VERAPAMIL 80 MG TAB PO SCH ×2 (08:36→20:02)
[2020-04-05] MEDS: GLIMEPIRIDE 2 MG TAB PO SCH ×2 (08:37→20:02)
[2020-04-05 09:38] LABS: HCT 28.5 % (34.0-46.0); Hypochromasia Moderate; MCH 28.4 pg (25.0-35.0); MCHC 31.6 g/dL (31.0-37.0); MCV 89.9 fL (80.0-100.0); Mean Platelet Volume 7.7; Platelet Count 456 k/uL (150-450); RBC 3.17 m/uL (3.80-5.40); RDW 14.3 % (11.5-15.5); WBC 10.8 k/uL (3.8-10.6)
[2020-04-05 09:45] LABS: Albumin 3.1 g/dL (3.5-5.0); Calcium 8.5 mg/dL (8.4-10.2); Potassium 2.8 mmol/L (3.5-5.1); Total Bilirubin 0.6 mg/dL (0.2-1.3); Total Protein 5.2 g/dL (6.3-8.2)
[2020-04-05] MEDS ORDERED: Potassium Replacement Protocol 1 EACH MISC MISCELLANE PRN (09:47)
[2020-04-05] MEDS: POTASSIUM CHLORIDE ER 20 MEQ TAB.ER PO SCH ×3 (10:36→12:46)
[2020-04-05 12:03] LABS: Glucose,Whole Blood 259 mg/dL (75-99)
[2020-04-05] MEDS: bisacodyL 5 MG TABLET.DR PO STA ×2 (12:04→12:13)
[2020-04-05] MEDS ORDERED: bisacodyL 10 MG SUPP RECTAL STA (12:07)
--- NOTE | 2020-04-05 13:59 | P.PN ---
Subjective Progress Note Date: 04/05/20 Principal diagnosis: Acute exacerbation of diastolic congestive heart failure with an acute exacerbation of mild intermittent asthma This is a very pleasant 85-year-old female patient of Dr. [facility]arias, who also follows with Dr. Malone in our office, with known history of mild intermittent bronchial asthma, chronic CHF, diabetes mellitus, GERD/reflux, hypertension hyperlipidemia, previous episode of myocardial infarction, chronic A. fib on Eliquis, resides at [facility]. She was recently discharged from here with an exacerbation of COPD/congestive heart failure. She represented to the emergency room yesterday again with complaints of shortness of breath, generalized weakness, productive cough of yellow sputum. No fever, chills or night sweats. Chest x-ray reveals cardiomegaly but no acute pulmonary process. Blood culture reveals no growth to date. White count 13.8. Hemoglobin 9.3. Sodium 138. Potassium 3.7. Creatinine 0.82. She's been initiated on bronchodilators, IV Solu-Medrol, empiric antibiotics in the form of Eliquis, IV diuretics. Anticoagulated with Eliquis. She is seen today in consultation on the selective care unit. She is currently sitting up in a chair at the bedside. Awake and alert in no acute distress. No worsening shortness of breath, cough or congestion. No hemoptysis. Patient was reevaluated today on 04/03/20, continues to have shortness of breath, and on physical examination continues to have crackles or rhonchi and wheezes bilaterally. Chest x-ray showed no evidence of congestive heart failure, but she does have cardiomegaly. Patient is on 2 L nasal cannula, O2 saturations 97%, she is in atrial fibrillation but rate controlled. Electrolytes are normal renal profile is normal WBC count is 17.1 hemoglobin is 8.8 The patient is seen today 04/04/2020 in follow-up on the selective care unit. She is currently sitting up in a chair at the bedside. Awake and alert in no acute distress. She is feeling better today as compared to yesterday. No worsening shortness of breath, cough or congestion. No chest pain. She is maintaining good O2 saturations in the high 90s on room air. She's afebrile. Hemodynamically stable. Blood culture revealed no growth. White count 11.7. Hemoglobin 8.8. Sodium 139. Potassium 3.0. Chloride 97. Bicarb 33. Creatinine 0.86. Patient is seen today 04/05/2020 in follow-up on the selective care unit. She is currently resting in bed. Awake and alert in no acute distress. Not feeling as well today as she did yesterday. Continues with loose nonproductive cough and congestion. She continues to maintain good O2 saturations up to 100% on room air. She's been afebrile. Hemodynamically stable. Blood culture reveals no growth. White count 10.8. Hemoglobin 9.0. Sodium 134. Potassium 2.8. Bicarb 33. Creatinine 1.00. She remains on DuoNeb inhalations, Symbicort, IV Solu-Medrol. She is on antibiotics form of ceftriaxone and azithromycin. She is on oral diuretics. Objective - Vital Signs Vital signs: Vital Signs Temp 97.0 F L 04/05/20 11:33 Pulse 76 04/05/20 12:37 Resp 18 04/05/20 11:33 BP 109/61 04/05/20 11:33 Pulse Ox 99 04/05/20 11:33 Intake & Output 04/04/20 04/05/20 04/05/20 18:59 06:59 18:59 Intake Total 660 230 Output Total 750 600 Balance -90 -370 Weight 58.5 kg Intake: Intake, IV Titration 50 Amount cefTRIAXone 1 gm In 50 Sodium Chloride 0.9% 50 ml @ 100 mls/hr IVPB Q24HR [facility] Rx#:[id number] Oral 610 230 Output: Urine 750 600 Other: Voiding Method Toilet Toilet Toilet # Voids 1 1 1 # Bowel Movements 0 1 - Exam GENERAL EXAM: Alert, pleasant 85-year-old female patient, on room air, in no distress. HEENT: PERRLA, EOMI, no icterus, neck masses, no JVD. CHEST: No chest wall deformity. LUNGS: Equal air entry, crackles and wheezes noted at the bases. CVS: S1 and S2 normal with an audible murmur, irregular rhythm. ABDOMEN: No hepatosplenomegaly, normal bowel sounds, no guarding or rigidity. SPINE: No scoliosis or deformity SKIN: No rashes CENTRAL NERVOUS SYSTEM: No focal deficits, tone is normal in all 4 extremities. EXTREMITIES: There is no peripheral edema. No clubbing, no cyanosis. Peripheral pulses are intact. - Labs CBC & Chem 7: 04/05/20 09:13 04/05/20 09:13 Labs: Abnormal Lab Results - Last 24 Hours (Table) 04/04/20 04/04/20 04/05/20 Range/Units 17:23 20:30 06:09 WBC (3.8-10.6) k/uL RBC (3.80-5.40) m/uL Hgb (11.4-16.0) gm/dL Hct (34.0-46.0) % Plt Count (150-450) k/uL Sodium (137-145) mmol/L Potassium (3.5-5.1) mmol/L Chloride (98-107) mmol/L Carbon Dioxide (22-30) mmol/L BUN (7-17) mg/dL Glucose (74-99) mg/dL POC Glucose (mg/dL) 201 H 108 H 142 H (75-99) mg/dL Total Protein (6.3-8.2) g/dL Albumin (3.5-5.0) g/dL 04/05/20 04/05/20 04/05/20 Range/Units 09:13 09:13 11:51 WBC 10.8 H (3.8-10.6) k/uL RBC 3.17 L (3.80-5.40) m/uL Hgb 9.0 L (11.4-16.0) gm/dL Hct 28.5 L (34.0-46.0) % Plt Count 456 H (150-450) k/uL Sodium 134 L (137-145) mmol/L Potassium 2.8 L (3.5-5.1) mmol/L Chloride 93 L (98-107) mmol/L Carbon Dioxide 33 H (22-30) mmol/L BUN 40 H (7-17) mg/dL Glucose 250 H (74-99) mg/dL POC Glucose (mg/dL) 259 H (75-99) mg/dL Total Protein 5.2 L (6.3-8.2) g/dL Albumin 3.1 L (3.5-5.0) g/dL Microbiology - Last 24 Hours (Table) 04/01/20 08:53 Blood Culture - Preliminary Blood No Growth after 96 hours Assessment and Plan Assessment: #1. Acute exacerbation of chronic diastolic congestive heart failure with preserved left ventricular systolic function , with most recent echocardiogram completed in October 2019 with an ejection fraction of 55-60% with severe concentric LVH and severe mitral and tricuspid regurgitation #2. Acute exacerbation of mild intermittent chronic bronchial asthma #3. Recent admission for this same #4. Chronic A. fib on Eliquis, post permanent pacemaker implantation #5. Diabetes mellitus type 2 #6. GERD/reflux #7. Hypertension #8. Hyperlipidemia #9. Osteoporosis #10. Chronic anemia #11. Anxiety depression #12. History of Enterococcus faecalis bacteremia and possibility of T8 discitis #13. Chronic back pain with compression fracture of T8 #14. Osteoarthritis Plan: The patient was seen and evaluated by Dr. Vogt Slow to progress Continue DuoNeb, Symbicort, IV Solu-Medrol Antibiotics in form of ceftriaxone and azithromycin Continue diuretics Chest x-ray in a.m. Increase her activity as tolerated Plan is for possible KIKO per cardiology We'll continue to follow and make further recommendations based on her clinical status I, the cosigning physician, performed a history & physical examination of the patient. Lungs sounds with basilar crackles, end expiratory wheeze. Maintaining good O2 saturations in the 90s on room air. I discussed the assessment and plan of care with my nurse practitioner, Rosario Yanes. I attest to the above note as dictated by her.
--- NOTE | 2020-04-05 14:23 | P.PN ---
Subjective This is Heather Ramos PA-C dictating a progress note on this patient The patient was interviewed and examined by me as well as by Dr. Serra Case discussed with Dr. Serra and he agrees with the plan of care HPI/interval history Patient is a 85-year-old female with a history of sick sinus syndrome status post permanent pacemaker implantation, persistent atrial fibrillation, diabetes, hypertension, dyslipidemia, diastolic heart failure who presented from [facility] with hypoxia and shortness of breath. Recently discharged after being treated for CHF and COPD exacerbation. She has been treated with IV Lasix along with antibiotics. We switched her to oral Lasix. Patient seen and examined lying in bed. States she is still tired. Her breathing is "not too bad". Denies any chest pain. Continues to complain of back pain. EXAMINATION Patient is afebrile, pulse in the 70s, respirations 18, blood pressure 109/61, oxygen saturation 99% on room air Patient seen and examined resting in bed, in no acute distress Lungs with crackles at the bases and expiratory wheezing Heart is irregular, systolic murmur audible at the apex No lower extremity edema REVIEW OF LABS, ECG WBC 10.8, hemoglobin 9, platelets 456, potassium 2.8, BUN 40, creatinine 1 recent echocardiogram shows EF 50-55%, RV mild to moderately enlarged, severe MR, severe pulmonary hypertension IMPRESSION / ASSESSMENT: #1 shortness of breath, multifactorial, combination of CHF, diastolic, acute on chronic and COPD exacerbation #2 chronic asthma/COPD #3 persistent atrial fibrillation, rate controlled, on anticoagulation #4 diabetes #5 Hypertension #6 borderline abnormal troponins, flat, possibly secondary to hypoxia and respiratory distress #7 pulmonary hypertension #8 valvular heart disease #9 hypokalemia PLAN: Reduce Lasix to 40 mg daily Add spironolactone 25 mg daily Continue all other cardiac medications tomorrow Dr. Gibson may consider KIKO to evaluate mitral valve for consideration of percutaneous mitral valve intervention Objective - Vital Signs Vital signs: Vital Signs Temp 97.0 F L 04/05/20 11:33 Pulse 76 04/05/20 12:37 Resp 18 04/05/20 11:33 BP 109/61 04/05/20 11:33 Pulse Ox 99 04/05/20 11:33 Intake & Output 07/25/20 07/26/20 07/26/20 18:59 06:59 18:59 Intake Total 660 230 Output Total 750 600 Balance -90 -370 Weight 58.5 kg Intake: Intake, IV Titration 50 Amount cefTRIAXone 1 gm In 50 Sodium Chloride 0.9% 50 ml @ 100 mls/hr IVPB Q24HR [facility] Rx#:[id number] Oral 610 230 Output: Urine 750 600 Other: Voiding Method Toilet Toilet Toilet # Voids 1 1 1 # Bowel Movements 0 1 - Labs CBC & Chem 7: 04/05/20 09:13 04/05/20 09:13 Labs: Abnormal Lab Results - Last 24 Hours (Table) 04/04/20 04/04/20 04/05/20 Range/Units 17:23 20:30 06:09 WBC (3.8-10.6) k/uL RBC (3.80-5.40) m/uL Hgb (11.4-16.0) gm/dL Hct (34.0-46.0) % Plt Count (150-450) k/uL Sodium (137-145) mmol/L Potassium (3.5-5.1) mmol/L Chloride (98-107) mmol/L Carbon Dioxide (22-30) mmol/L BUN (7-17) mg/dL Glucose (74-99) mg/dL POC Glucose (mg/dL) 201 H 108 H 142 H (75-99) mg/dL Total Protein (6.3-8.2) g/dL Albumin (3.5-5.0) g/dL 04/05/20 04/05/20 04/05/20 Range/Units 09:13 09:13 11:51 WBC 10.8 H (3.8-10.6) k/uL RBC 3.17 L (3.80-5.40) m/uL Hgb 9.0 L (11.4-16.0) gm/dL Hct 28.5 L (34.0-46.0) % Plt Count 456 H (150-450) k/uL Sodium 134 L (137-145) mmol/L Potassium 2.8 L (3.5-5.1) mmol/L Chloride 93 L (98-107) mmol/L Carbon Dioxide 33 H (22-30) mmol/L BUN 40 H (7-17) mg/dL Glucose 250 H (74-99) mg/dL POC Glucose (mg/dL) 259 H (75-99) mg/dL Total Protein 5.2 L (6.3-8.2) g/dL Albumin 3.1 L (3.5-5.0) g/dL Microbiology - Last 24 Hours (Table) 04/01/20 08:53 Blood Culture - Preliminary Blood No Growth after 96 hours
[2020-04-05] MEDS: SPIRONOLACTONE 25 MG TAB PO SCH (15:45)
[2020-04-05 17:40] LABS: Glucose,Whole Blood 258 mg/dL (75-99)
[2020-04-05] MEDS: ATORVASTATIN 20 MG TAB PO SCH (20:02)
[2020-04-05 20:07] LABS: Glucose,Whole Blood 214 mg/dL (75-99)
[2020-04-05] MEDS: BACLOFEN 10 MG TAB PO PRN (21:21)
[2020-04-06] MEDS ORDERED: Magnesium Replacement Protocol 1 EACH MISC MISCELLANE PRN (00:10)
--- NOTE | 2020-04-06 00:11 | P.PN ---
Subjective This is a pleasant 85 years old female with past medical history of chronic heart failure, atrial fibrillation on Eliquis, COPD, asthma, diabetes mellitus, hypertension, hyperlipidemia, chronic back pain with compression fracture of T8. She follows with Dr. Malone her foil spinner and Dr. Gibson her sharepoint analyst. She is a patient of [facility]. Presents because of dyspnea and coughing. Patient was recently in this hospital for 5 day stay, discharged 2 days ago and mild asthma, after discharge she remained to be dyspneic which gradually got worse so she decided to come to emergency room. She has also cough with green-yellow phlegm, no chest pain but she has chronic low back pain. No change in urine or bowel habits. No fever. She never smoked and she denies alcohol She saturating 99% on 2 L oxygen via nasal cannula and she is afebrile. On admission she has leukocytosis of 20.6 K, creatinine slightly elevated at 1.1, normal 0.9-1.0, she has elevated troponin 0.046 Chest x-ray: No acute process, chronic changes. EKG showing paced rhythm at 73 with QTC of 508 In the emergency room she was given 1 dose of Zithromax and Rocephin, 1 dose of steroids and started on some Medrol 60 mg, also she got 1 dose of IV Lasix. Pulmonary team already consulted from emergency room, was noted to consult cardiology as well. Recent Echocardiogram on this year 10/2019 showed ejection fraction of 55-60% with severe concentric left ventricular hypertrophy, with severe mitral and tricuspid regurgitation 04/02/2020 Today patient feels better with less dyspnea however patient still tachypneic and still have coughing, she saturating 100% on 2 L oxygen via nasal cannula WBC improved down to 13.8 K, hemoglobin down to 9.3. Sugar is 250 She remains on Eliquis, Zithromax and ceftriaxone, IV Lasix 40 mg twice daily and some Medrol 60 mg Pulmonary and cardiology were consulted 04/03/2020 Patient clinically feels better although she is dyspneic but she is improved, however, is feeling better as well. Patient evaluated by sharepoint analyst team this stop amiodarone and switched her Lasix to oral doses and the plan for KIKO on Monday for evaluation of her mitral valve disease. In the meantime she remains hemodynamically stable. She continued to be on Zithromax and Rocephin, oral Lasix and Solu-Medrol. Also she is on Eliquis 04/04/2020 Patient feeling even better today with less dyspnea and more easier breathing. The plan is to undergo KIKO on Monday for evaluation of mitral valve disease given her multiple admissions with heart failure The patient vitals are stable, her WBCs trending down while she is on Zithromax and ceftriaxone for possible infection elements in her respiratory tract, also she is to continue on steroids 04/05/2020 Patient today is more dyspneic and she has crepitation on both sides of the lung up to the mid lung Plan for her to undergo KIKO on Monday tomorrow for evaluation of mitral valve disease The patient vitals are stable, her WBCs trending down while she is on Zithromax and ceftriaxone for possible infection elements in her respiratory tract, also she is to continue on steroids Management plan discussed with the patient in details and she verbalized understanding and acceptance and all her questions were answered to her satisfaction Objective - Vital Signs Vital signs: Vital Signs Temp 97.0 F L 04/05/20 11:33 Pulse 76 04/05/20 12:37 Resp 18 04/05/20 11:33 BP 109/61 04/05/20 11:33 Pulse Ox 99 04/05/20 11:33 Intake & Output 04/04/20 04/05/20 04/05/20 18:59 06:59 18:59 Intake Total 660 230 Output Total 750 600 Balance -90 -370 Weight 58.5 kg Intake: Intake, IV Titration 50 Amount cefTRIAXone 1 gm In 50 Sodium Chloride 0.9% 50 ml @ 100 mls/hr IVPB Q24HR [facility] Rx#:[id number] Oral 610 230 Output: Urine 750 600 Other: Voiding Method Toilet Toilet Toilet # Voids 1 1 1 # Bowel Movements 0 1 - Exam GENERAL: The patient is alert and oriented x3, not in any acute distress. Well developed, well nourished. HEENT: Pupils are round and equally reacting to light. EOMI. No scleral icterus. No conjunctival pallor. Normocephalic, atraumatic. No pharyngeal erythema. No thyromegaly. CARDIOVASCULAR: S1 and S2 present. No murmurs, rubs, or gallops. -PULMONARY: Chest is clear to auscultation, no wheezing or. Bilateral digital and lower crepitation ABDOMEN: Soft, nontender, nondistended, normoactive bowel sounds. No palpable organomegaly. MUSCULOSKELETAL: No joint swelling or deformity. -EXTREMITIES: No cyanosis, clubbing, mild bilateral leg edema. NEUROLOGICAL: Gross neurological examination did not reveal any focal deficits. SKIN: No rashes. no petechiae. - Labs CBC & Chem 7: 04/05/20 09:13 04/05/20 14:51 Labs: Abnormal Lab Results - Last 24 Hours (Table) 04/04/20 04/04/20 04/05/20 Range/Units 17:23 20:30 06:09 WBC (3.8-10.6) k/uL RBC (3.80-5.40) m/uL Hgb (11.4-16.0) gm/dL Hct (34.0-46.0) % Plt Count (150-450) k/uL Sodium (137-145) mmol/L Potassium (3.5-5.1) mmol/L Chloride (98-107) mmol/L Carbon Dioxide (22-30) mmol/L BUN (7-17) mg/dL Glucose (74-99) mg/dL POC Glucose (mg/dL) 201 H 108 H 142 H (75-99) mg/dL Total Protein (6.3-8.2) g/dL Albumin (3.5-5.0) g/dL 04/05/20 04/05/20 04/05/20 Range/Units 09:13 09:13 11:51 WBC 10.8 H (3.8-10.6) k/uL RBC 3.17 L (3.80-5.40) m/uL Hgb 9.0 L (11.4-16.0) gm/dL Hct 28.5 L (34.0-46.0) % Plt Count 456 H (150-450) k/uL Sodium 134 L (137-145) mmol/L Potassium 2.8 L (3.5-5.1) mmol/L Chloride 93 L (98-107) mmol/L Carbon Dioxide 33 H (22-30) mmol/L BUN 40 H (7-17) mg/dL Glucose 250 H (74-99) mg/dL POC Glucose (mg/dL) 259 H (75-99) mg/dL Total Protein 5.2 L (6.3-8.2) g/dL Albumin 3.1 L (3.5-5.0) g/dL Microbiology - Last 24 Hours (Table) 04/01/20 08:53 Blood Culture - Preliminary Blood No Growth after 96 hours Assessment and Plan Assessment: Acute on chronic diastolic CHF Severe mitral and tricuspid regurgitation, need further evaluation of her mitral valve disease Mild Acute COPD exacerbation with possible elements AND infection Elevated troponin, acute coronary syndrome ruled out. Cardiology team on the case Atrial fibrillation on Eliquis Diabetes mellitus Hypertension Hyperlipidemia Compression of fracture of T8 Plan: This is a pleasant 85 years old female who presents with CHF secondary to mitral valve disease. Continue with diuretic, continue with antibiotics and breathing treatment. Continue with steroids. And Lasix. Follow-up recommendation by sharepoint analyst and foil spinner. KIKO on Monday for mitral valve evaluation Labs and medication were reviewed.. Continue same treatment. Continue with symptomatic treatment. Resume home medication. Monitor lytes and vitals. DVT and GI prophylaxis. Further recommendations of the clinical course of the pat ient DVT prophylaxis: Eliquis GI Prophylaxis: Pepcid PT/OT: Pending Prognosis is guarded
[2020-04-06] MEDS: methylPREDNISolone SOD SUCCI 125 MG/2 ML VIAL IV SCH ×2 (06:14→14:24)
[2020-04-06 06:42] LABS: Basophils % (A) 0 %; Eosinophils % (A) 0 %; HCT 27.8 % (34.0-46.0); HGB 8.8 gm/dL (11.4-16.0); Hypochromasia Moderate; Lymphocytes # (A) 0.3 k/uL (1.0-4.8); Lymphocytes % (A) 2 %; MCH 28.2 pg (25.0-35.0); MCHC 31.4 g/dL (31.0-37.0); MCV 89.8 fL (80.0-100.0); Mean Platelet Volume 7.6; Monocytes # (A) 0.4 k/uL (0-1.0); Monocytes % (A) 3 %; Neutrophils # (A) 12.2 k/uL (1.3-7.7); Neutrophils % (A) 94 %; Platelet Count 414 k/uL (150-450); RDW 14.3 % (11.5-15.5); WBC 13.1 k/uL (3.8-10.6)
[2020-04-06 06:54] LABS: Calcium 8.8 mg/dL (8.4-10.2); Magnesium 2.3 mg/dL (1.6-2.3); Potassium 3.9 mmol/L (3.5-5.1)
[2020-04-06 07:09] LABS: Glucose,Whole Blood 210 mg/dL (75-99)
[2020-04-06] MEDS: INSULIN ASPART (NovoLOG) 100 UNIT/ML VIAL SQ SCH ×4 (08:13→21:18)
[2020-04-06] MEDS: IPRATROPIUM-ALBUTEROL 3 ML NEB INHALATION SCH ×4 (08:18→20:04)
[2020-04-06] MEDS: SYMBICORT 160-4.5 MCG INHALER INHALATION SCH ×2 (08:18→20:04)
[2020-04-06 12:13] LABS: Glucose,Whole Blood 163 mg/dL (75-99)
[2020-04-06] MEDS ORDERED: fentaNYL (PF) 50 MCG/ML 2 ML AMP ONE (12:19)
[2020-04-06] MEDS: BENZOCAINE SPRAY 1 CAN TOPICAL ONE ×2 (12:30→12:39)
[2020-04-06] MEDS ORDERED: fentaNYL (PF) 50 MCG/ML 2 ML AMP IV ONE (12:58)
[2020-04-06] MEDS ORDERED: MIDAZOLAM 2 MG/2 ML VIAL IV ONE (12:58)
[2020-04-06] MEDS ORDERED: IV FLUID CONTINUATION 1,000 ML IV ONE (13:02)
[2020-04-06] MEDS: GLIMEPIRIDE 2 MG TAB PO SCH ×2 (13:40→21:18)
[2020-04-06] MEDS: VERAPAMIL 80 MG TAB PO SCH ×2 (13:40→21:26)
[2020-04-06] MEDS: FUROSEMIDE 40 MG TAB PO SCH (14:21)
[2020-04-06] MEDS: APIXABAN 5 MG TAB PO SCH ×2 (14:21→21:18)
[2020-04-06] MEDS: SPIRONOLACTONE 25 MG TAB PO SCH (14:21)
[2020-04-06] MEDS: AZITHROMYCIN 500 MG TAB PO SCH (14:21)
[2020-04-06] MEDS: POTASSIUM CHLORIDE ER 10 MEQ TAB.ER.PRT PO SCH (14:22)
[2020-04-06] MEDS: SODIUM CHLORIDE 0.9% 1,000 ML IV SCH (14:22)
--- NOTE | 2020-04-06 14:30 | ECHOT ---
TRANSESOPHAGEAL ECHOCARDIOGRAM INDICATION: Mitral regurgitation. PROCEDURE NOTE: After obtaining informed consent, transesophageal echocardiogram is performed in left lateral position using an Omni plane probe. Local and IV sedation were obtained with 1 mg of Versed and 25 mcg of fentanyl. Patient tolerated the procedure well without any obvious immediate complication. Patient received moderate conscious sedation. Total sedation time was 7 minutes. FINDINGS: 1. Mitral valve leaflets appear thickened without any evidence of mitral valve prolapse or planed mitral leaflet. There is severe central mitral regurgitation noted. 2. Left atrium appears severely enlarged. 3. Right atrium and right ventricle seen within normal limits. 4. Tricuspid valve shows moderate to severe tricuspid regurgitation. 5. Aortic valve shows mild aortic regurgitation. 6. Aorta shows [id number] atherosclerotic changes. 7. Left ventricle has normal size and shows concentric left ventricular hypertrophy with normal LV function. CONCLUSION: 1. Severe central mitral regurgitation. 2. Normal LV systolic function. 3. No evidence of shunting across the interatrial septum. MMODL / IJN: [id number] /
--- NOTE | 2020-04-06 14:40 | PN ---
PROGRESS NOTE PULMONARY/CRITICAL CARE PROGRESS NOTE: DATE OF SERVICE: 04/06/2020. This is an 85-year-old female well known to me. Her primary care physician is Dr. Royal Farias down in [place]. The patient is doing relatively well. She remains on the cardiac unit in room 352. She is going for a transesophageal echocardiogram today. She is in no distress. She has been weaned off oxygen. Initially, she came in with shortness of breath. That is improved. She does have occasional nonproductive cough. She denies any chest pain or chest discomfort. There is no fever or chills. All-in- all, the patient is doing reasonably well. She remains on antibiotics in the form of Rocephin and Zithromax. Current vital signs reviewed. Temperature is 98, heart rate 72, respiratory rate 18, blood pressure 104/63 mean 76, room air saturation 98%. She appears in no acute distress. HEENT: Examination is grossly unremarkable. NECK: Supple. Full range of motion. No adenopathy or thyromegaly. Neck veins are flat. CARDIOVASCULAR: Examination reveals an irregular rhythm and rate. S1, S2 normal. There is a murmur. It is grade 1 or 2/6. LUNGS: Clear, breath sounds equal. No wheezes, rhonchi, or crackles today. ABDOMEN: Soft, bowel sounds are heard. EXTREMITIES: Intact. No cyanosis, clubbing, or edema. SKIN: Without rash. NEUROLOGIC: Examination is brief but nonfocal. LABS: Reviewed. White count 13.1, hemoglobin 8.8, hematocrit 27.8, platelet count 414,000. Sodium 134, potassium 3.9, chloride 97, CO2 is 29, anion gap is 8, BUN and creatinine were 45 and 0.9. Microbiology is currently negative. The most recent chest x-ray on 04/03 shows some cardiomegaly without evidence of overt failure. Medications are reviewed. ASSESSMENT: 1. Acute exacerbation of diastolic CHF, with preserved left ventricular systolic function, much improved. 2. Valvular heart disease in the form of severe mitral and tricuspid regurgitation. 3. Mild acute exacerbation of asthma. 4. Chronic atrial fibrillation, currently on Eliquis, status post permanent pacemaker insertion. 5. Type 2 diabetes mellitus. 6. Gastroesophageal reflux disease. 7. Hypertension. 8. Hyperlipidemia and osteoporosis. 9. Chronic anemia. 10.Anxiety/depression. 11.History of Enterococcus faecalis bacteremia. 12.Chronic back pain with T8 fracture. 13.Osteoarthritis. PLAN: All-in-all, the patient is doing well. Medications are reviewed. The patient is going for a transesophageal echocardiogram today. Currently, from the pulmonary standpoint, the patient remains on Zithromax, Symbicort, Rocephin, DuoNeb and Solu-Medrol. The Solu-Medrol could be discontinued in favor of prednisone 30 mg a day. Additional recommendations and suggestions are forthcoming. MMODL / IJN: [id number] /
[2020-04-06 16:56] LABS: Glucose,Whole Blood 290 mg/dL (75-99)
--- NOTE | 2020-04-06 17:03 | CDI ---
Documentation Clarification Form Date: 04/06/2020 04:43:27 PM From: Kym Sandhu RN CCDS Admit Date: 04/03/2020 11:27:00 AM Patient Name: Vashti Jane Visit Number: [id number] Discharge Date: ATTENTION: The Clinical Documentation Specialists (CDI) and [facility] Coding Staff appreciate your assistance in clarifying documentation. Please respond to the clarification below the line at the bottom and electronically sign. The CDI & [facility] Coding staff will review the response and follow-up if needed. Please note: Queries are made part of the Legal Health Record. If you have any questions, please contact the author of this message via ITS. Dr. Israel Serra Borderline abnormal troponins, flat, possibly secondary to hypoxia and respiratory distress. Patient History/Risk Factors: 85-year-old male presents to the ED for worsening dyspnea and weakness related combination of diastolic chf and acute on chronic copd exacerbation. Medical history: Diastolic CHF; Persistent Atrial fib; DM; HTN and Pulmonary HTN Clinical Indicators: 04/01 VSS: B/P: 105/51; HR: 74; RR: 18; SpO2 98% 2L nasal cannula 04/01 Troponin: 0.046; 0.045 04/01 EKG Results: Demand pacemaker atrial fibrillation with PVC none paced beats have ST segment depression and T-wave inversion in V5 and V6 no ST segment elevation, rate of 73, QRS duration 116, QTC 508 Treatment: 04/01- 2L nasal cannula; Duonebs; Lasix Iv x1; In your professional opinion, can you please clarify the clinical significance of the Troponins? Type 2 RI secondary to demand ischemia in the setting of hypoxia and respiratory distress. Type 2 RI secondary to demand ischemia due to (please specify) Elevated Troponins Lab finding. Unable to determine Other Condition, please specify (Last Revision: September 2019) Elevated troponin lab finding MTDD
[2020-04-06 20:22] LABS: Glucose,Whole Blood 279 mg/dL (75-99)
[2020-04-06] MEDS: ATORVASTATIN 20 MG TAB PO SCH (21:18)
[2020-04-07] MEDS: HYDROcodone/APAP 10-325MG 1 EACH TAB PO PRN ×2 (00:12→10:00)
--- NOTE | 2020-04-07 00:29 | P.PN ---
Progress Note - Text Progress Note Date: 04/06/20 Chief Complaint: Weak and tired Interval history: This is a pleasant 85-year-old patient of Dr. Royal Beaver. Rather extensive medical history. 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 wear a brace because of her T8 fracture. Also treated for possible T8 discitis back in September 2019. Admitted with CHF exacerbation, COPD exacerbation. Today-underwent KIKO. Didn't tolerate some diet. Slight shortness of breath. Review of systems: Was done for constitutional, cardiovascular, GI, pulmonary. relevant finding as above Active Medications Hydrocodone Bitart/Acetaminophen ([place] 10) 1 each PO Q4H PRN PRN Reason: Pain Last Admin: 04/07/20 00:12 Dose: 1 each Documented by: Albuterol/Ipratropium (Duoneb 0.5 Mg-3 Mg/3 Ml Soln) 3 ml INHALATION RT-Q4H PRN PRN Reason: Shortness Of Breath Or Wheezing Albuterol/Ipratropium (Duoneb 0.5 Mg-3 Mg/3 Ml Soln) 3 ml INHALATION RT-QID [facility] Last Admin: 04/06/20 20:04 Dose: 3 ml Documented by: Apixaban (Eliquis) 5 mg PO BID [facility] Last Admin: 04/06/20 21:18 Dose: 5 mg Documented by: Atorvastatin Calcium (Lipitor) 20 mg PO HS [facility] Last Admin: 04/06/20 21:18 Dose: 20 mg Documented by: Azithromycin (Zithromax) 500 mg PO DAILY [facility] Last Admin: 04/06/20 14:21 Dose: 500 mg Documented by: Baclofen (Lioresal) 10 mg PO HS PRN PRN Reason: Muscle Spasm Last Admin: 04/05/20 21:21 Dose: 10 mg Documented by: Budesonide/Formoterol Fumarate (Symbicort 160-4.5 Mcg Inhaler) 2 puff INHALATION RT-BID [facility] Last Admin: 04/06/20 20:04 Dose: 2 puff Documented by: Famotidine (Pepcid) 20 mg PO DAILY PRN PRN Reason: GI Upset Furosemide (Lasix) 40 mg PO DAILY [facility] Last Admin: 04/06/20 14:21 Dose: 40 mg Documented by: Glimepiride (Amaryl) 2 mg PO BID [facility] Last Admin: 04/06/20 21:18 Dose: 2 mg Documented by: Ceftriaxone Sodium 1 gm/ (Sodium Chloride) 50 mls @ 100 mls/hr IVPB Q24HR [facility] Last Admin: 04/06/20 09:24 Dose: 100 mls/hr Documented by: Sodium Chloride (Saline 0.9%) 1,000 mls @ 20 mls/hr IV .Q24H [facility] Last Admin: 04/06/20 14:22 Dose: 20 mls/hr Documented by: Insulin Aspart (Novolog) 0 unit SQ ACHS [facility]; Protocol Last Admin: 04/06/20 21:18 Dose: 8 unit Documented by: Miscellaneous Information (Potassium Per Protocol) 1 each MISCELLANE DAILY PRN; Protocol PRN Reason: Per Protocol Miscellaneous Information (Magnesium Per Protocol) 1 each MISCELLANE DAILY PRN; Protocol PRN Reason: Per Protocol Nadolol (Corgard) 40 mg PO HS [facility] Last Admin: 04/06/20 21:26 Dose: 40 mg Documented by: Potassium Chloride (K-Dur 10) 10 meq PO DAILY [facility] Last Admin: 04/06/20 14:22 Dose: 10 meq Documented by: Prednisone () 30 mg PO DAILY [facility] Spironolactone (Aldactone) 25 mg PO DAILY [facility] Last Admin: 04/06/20 14:21 Dose: 25 mg Documented by: Verapamil HCl (Isoptin) 80 mg PO BID [facility] Last Admin: 04/06/20 21:26 Dose: 80 mg Documented by: Physical examination: VITAL SIGNS: 96.7, 98, 18, 133/71, 98% room air GENERAL: Propped up in bed EYES: Pupils equal. Conjunctiva normal. HEENT: External appearance of nose and ears normal, oral cavity grossly normal. NECK: JVD not raised; masses not palpable. HEART: First and second heart sounds are normal; no edema. LUNGS: Respiratory rate increased, some basal Velcro crackles . ABDOMEN: Soft, nontender, liver spleen not palpable, no masses palpable. PSYCH: Alert and oriented x3; mood and affect normal. MUSCULOSKELETAL: Evidence of OA especially in the hands INVESTIGATIONS, reviewed in the clinical context: White count 13.1 hemoglobin 8.8 progression 3.9 creatinine 0.9 DE-severe central mitral regurgitation, normal LV function Assessment: --Persistent atrial fibrillation rate controlled -Permanent pacemaker -Acute on Chronic congestive heart failure, diastolic exacerbation, but normal ejection fraction, -Diabetes mellitus type II -GERD -Essential hypertension -Hyperlipidemia -Primary osteoarthritis -Chronic T8 compression fracture for which patient uses a brace -Diabetic peripheral neuropathy -Primary osteoarthritis -Moderate to severe tricuspid regurgitation -Mild acute obstructive asthma exacerbation Plan: Patient is on DuoNeb, IV ceftriaxone and being changed to oral steroids from tomorrow. We will do a high resolution computed tomography scan of the chest to rule out pulmonary fibrosis, based on clinical exam. Also check a proBNP in the morning
[2020-04-07 06:52] LABS: Glucose,Whole Blood 86 mg/dL (75-99)
[2020-04-07] MEDS: INSULIN ASPART (NovoLOG) 100 UNIT/ML VIAL SQ SCH ×4 (07:05→21:06)
[2020-04-07] MEDS: SYMBICORT 160-4.5 MCG INHALER INHALATION SCH ×2 (08:02→20:09)
[2020-04-07] MEDS: IPRATROPIUM-ALBUTEROL 3 ML NEB INHALATION SCH ×4 (08:02→20:09)
--- NOTE | 2020-04-07 08:39 | CT ---
EXAMINATION TYPE: CT chest wo con DATE OF EXAM: 04/07/2020 COMPARISON: Chest x-ray 04/03/2020, chest CT 02/26/2019 HISTORY: Abnormal chest x-ray Rule out pulmonary fibrosis CT DLP: 488.6 mGycm. Automated Exposure Control for Dose Reduction was Utilized. TECHNIQUE: CT scan of the thorax is performed without IV contrast using high-resolution algorithm in a limited fashion in both supine and prone positions. FINDINGS: LUNGS: The lungs are remarkable for bandlike areas of increased attenuation at the lung bases, parenc hymal bands extend to the pleural surface, there are areas of thickened interlobular pleural septa in a patchy distribution, bronchiectasis at the lung bases, there is no concerning parenchymal mass or nodule identified. Some of these findings noted on patient's prior chest CT There is no pleural effu cl or pneumothorax seen. The tracheobronchial tree is patent. MEDIASTINUM: Lack of IV contrast is noted to limit evaluation for mediastinal and especially hilar a denopathy. There are no definitive greater than 1 cm hilar or mediastinal lymph nodes. No cardiomeg afua or pericardial effusion is seen. Pulmonary arteries enlarged, heart is enlarged, there is likely mitral annular calcification. Intracardiac leads are present. OTHER: Spleen shows calcifications, likely due to old granulomatous disease. Arthropathy noted within the shoulders IMPRESSION: Findings are compatible with idiopathic pulmonary fibrosis, correlate for pulmonary hyper tension. Cardiomegaly and coronary artery disease, additional findings above
[2020-04-07] MEDS: VERAPAMIL 80 MG TAB PO SCH ×2 (08:41→21:06)
[2020-04-07] MEDS: SPIRONOLACTONE 25 MG TAB PO SCH (08:41)
[2020-04-07] MEDS: GLIMEPIRIDE 2 MG TAB PO SCH ×2 (08:41→21:06)
[2020-04-07] MEDS: AZITHROMYCIN 500 MG TAB PO SCH (08:41)
[2020-04-07] MEDS: POTASSIUM CHLORIDE ER 10 MEQ TAB.ER.PRT PO SCH (08:41)
[2020-04-07] MEDS: predniSONE 10 MG TAB PO SCH (08:42)
[2020-04-07] MEDS: FUROSEMIDE 40 MG TAB PO SCH (08:42)
[2020-04-07] MEDS: APIXABAN 5 MG TAB PO SCH ×2 (09:44→21:05)
[2020-04-07] MEDS ORDERED: BACLOFEN 10 MG TAB PO PRN (10:07)
--- NOTE | 2020-04-07 10:42 | PN ---
PROGRESS NOTE Vashti is an 85-year-old lady with history of cardiomyopathy, congestive heart failure, permanent atrial fibrillation, who is admitted to hospital with acute exacerbation of chronic diastolic heart failure, has severe pulmonary hypertension and severe mitral regurgitation. Patient underwent a transesophageal echo yesterday that showed severe mitral regurgitation. The plan was to perform a cardiac catheterization and refer her for mitral valve clip. I had a long conversation with the patient yesterday along with her daughter and asked then to think it over and see if that is what they wish to do. This morning patient states she does not want to go through any invasive procedures. Her main complaint is that she is fatigued, tired, and does not have the energy to get around. On exam, afebrile. Heart rate is 84 beats and blood pressure is 110/80, respiratory rate is 18, O2 saturation is 97%. Chest exam reveals good air entry bilaterally. Heart exam reveals first and second heart sounds and a systolic murmur at the apex. Abdomen is soft. Exam of extremities did not reveal any edema. Peripheral pulses are felt. A CT scan of the chest showed pulmonary fibrosis. ASSESSMENT: Severe mitral regurgitation, permanent atrial fibrillation, acute exacerbation of chronic systolic heart failure. PLAN: Patient will continue with current medications. Patient will continue with current medical therapy, can go rehab and hopefully home over the next several days. MMODL / IJN: [id number] /
[2020-04-07 11:41] LABS: Glucose,Whole Blood 118 mg/dL (75-99)
--- NOTE | 2020-04-07 11:42 | PN ---
PROGRESS NOTE PULMONARY/CRITICAL CARE PROGRESS NOTE: DATE OF SERVICE: 04/07/2020 An 85-year-old female well known to me. Her primary care physician is Dr. Kemar Farias down in [place]. The patient remains in the cardiac unit in room 352. Today, she just states that she is very weak and really cannot do anything. She apparently had a CT scan of the chest yesterday and also a transesophageal echocardiogram. Will get to those in just a bit. She feels like she is very weak and can barely walk and barely lift her arms. She seems very depressed today. The patient does have an occasional nonproductive cough. She initially came in with shortness of breath, but that has dramatically improved. She has no fever or chills. She remains on antibiotics. Her transesophageal echocardiogram is reviewed. This shows severe mitral regurgitation and normal LV systolic function. There is also moderate to severe tricuspid regurgitation and mild aortic regurgitation. The left atrium appears enlarged. Also, A CT scan was done. It does show some limited areas of fibrotic changes. In my opinion. Her CT scan is not consistent with idiopathic pulmonary fibrosis. The scarring is relatively mild and not typical of the peripheral basilar scarring that we see in idiopathic pulmonary fibrosis. Currently, vital signs show a temperature of 97.5, heart rate 72, respiratory rate 18, blood pressure 121/86 mean 97, room-air saturation 97%. She appears in no acute distress. There is no conversational dyspnea or use of accessory muscles. HEENT: Examination is grossly unremarkable. NECK: Supple. Full range of motion. No adenopathy. Neck veins are flat. CARDIOVASCULAR: Examination reveals regular rhythm and rate. Heart rate 72 beats per minute. S1, S2 normal. A soft systolic murmur is noted. LUNGS: Reveal mostly clear breath sounds. There are some bibasilar crackles. The crackles are relatively mild. No wheezes. No rhonchi. ABDOMEN: Soft, bowel sounds are heard. EXTREMITIES: Intact. No cyanosis, clubbing, or edema. SKIN: Without rash. NEUROLOGIC: Examination is brief but nonfocal. LABS: Reviewed. Nothing new from today. Her N terminal proBNP is 18,000. Microbiologic studies are negative. Transesophageal echocardiogram and CT scan are reviewed. Medications are reviewed. ASSESSMENT: 1. Acute exacerbation of diastolic congestive heart failure with per preserved left ventricular systolic function, much improved. 2. Valvular heart disease in the form of severe mitral and tricuspid regurgitation. 3. Mild acute exacerbation of asthma. 4. Chronic atrial fibrillation, currently on Eliquis, status post permanent pacemaker insertion. 5. Type 2 diabetes mellitus. 6. Gastroesophageal reflux disease. 7. Hypertension. 8. Hyperlipidemia. 9. Osteoporosis. 10.Chronic anemia. 11.Anxiety/depression. 12.History of Enterococcus faecalis bacteremia. 13.Chronic back pain with T8 fracture. 14.Osteoarthritis. 15.Limited interstitial changes on CT scan. PLAN: Currently, the patient from the pulmonary standpoint is doing reasonably well. She is on room air. Saturations are 97%. She does get short of breath and weak when she exerts herself. Certainly not a candidate for anything surgical at this time. She would need significant rehab. Will continue to follow. Antibiotics will be discontinued. No clear-cut evidence of infection. No additional recommendations are made. MMODL / IJN: [id number] /
[2020-04-07] MEDS: SODIUM CHLORIDE 0.9% 1,000 ML IV SCH (14:42)
[2020-04-07 17:23] LABS: Glucose,Whole Blood 369 mg/dL (75-99)
[2020-04-07 20:18] LABS: Glucose,Whole Blood 249 mg/dL (75-99)
[2020-04-07] MEDS: ATORVASTATIN 20 MG TAB PO SCH (21:06)
--- NOTE | 2020-04-08 00:01 | P.PN ---
Progress Note - Text Progress Note Date: 04/07/20 Chief Complaint: Weak and tired Interval history: This is a pleasant 85-year-old patient of Dr. Royal Beaver. Rather extensive medical history. 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 wear a brace because of her T8 fracture. Also treated for possible T8 discitis back in September 2019. Admitted with CHF exacerbation, COPD exacerbation.treated with Lasix bronchodilator discharge. KIKO showed severe mitral regurgitation. Today-high resolutionl CT of the chest showed-pulmonary fibrosis. Care is discussed with the patient. Does feel tired. Looking to go to inpatient rehab. Review of systems: Was done for constitutional, cardiovascular, GI, pulmonary. relevant finding as above Active Medications Hydrocodone Bitart/Acetaminophen ([place] 10) 1 each PO Q4H PRN PRN Reason: Pain Last Admin: 04/07/20 10:00 Dose: 1 each Documented by: Albuterol/Ipratropium (Duoneb 0.5 Mg-3 Mg/3 Ml Soln) 3 ml INHALATION RT-Q4H PRN PRN Reason: Shortness Of Breath Or Wheezing Albuterol/Ipratropium (Duoneb 0.5 Mg-3 Mg/3 Ml Soln) 3 ml INHALATION RT-QID [facility] Last Admin: 04/07/20 20:09 Dose: 3 ml Documented by: Apixaban (Eliquis) 5 mg PO BID [facility] Last Admin: 04/07/20 21:05 Dose: 5 mg Documented by: Atorvastatin Calcium (Lipitor) 20 mg PO HS [facility] Last Admin: 04/07/20 21:06 Dose: 20 mg Documented by: Baclofen (Lioresal) 5 mg PO Q8H PRN PRN Reason: Muscle Spasm Last Admin: 04/07/20 12:06 Dose: 5 mg Documented by: Budesonide/Formoterol Fumarate (Symbicort 160-4.5 Mcg Inhaler) 2 puff INHALATION RT-BID [facility] Last Admin: 04/07/20 20:09 Dose: 2 puff Documented by: Famotidine (Pepcid) 20 mg PO DAILY PRN PRN Reason: GI Upset Furosemide (Lasix) 40 mg PO DAILY [facility] Last Admin: 04/07/20 08:42 Dose: 40 mg Documented by: Glimepiride (Amaryl) 2 mg PO BID [facility] Last Admin: 04/07/20 21:06 Dose: 2 mg Documented by: Sodium Chloride (Saline 0.9%) 1,000 mls @ 20 mls/hr IV .Q24H [facility] Last Admin: 04/07/20 14:42 Dose: Not Given Documented by: Insulin Aspart (Novolog) 0 unit SQ ACHS [facility]; Protocol Last Admin: 04/07/20 21:06 Dose: 8 unit Documented by: Miscellaneous Information (Potassium Per Protocol) 1 each MISCELLANE DAILY PRN; Protocol PRN Reason: Per Protocol Miscellaneous Information (Magnesium Per Protocol) 1 each MISCELLANE DAILY PRN; Protocol PRN Reason: Per Protocol Nadolol (Corgard) 40 mg PO HS [facility] Last Admin: 04/07/20 21:06 Dose: 40 mg Documented by: Potassium Chloride (K-Dur 10) 10 meq PO DAILY [facility] Last Admin: 04/07/20 08:41 Dose: 10 meq Documented by: Prednisone () 30 mg PO DAILY [facility] Last Admin: 04/07/20 08:42 Dose: 30 mg Documented by: Spironolactone (Aldactone) 25 mg PO DAILY [facility] Last Admin: 04/07/20 08:41 Dose: 25 mg Documented by: Verapamil HCl (Isoptin) 80 mg PO BID [facility] Last Admin: 04/07/20 21:06 Dose: 80 mg Documented by: Physical examination: VITAL SIGNS: 97.5, 79, 18, 129/78, 90% room air GENERAL: Propped up in bed EYES: Pupils equal. Conjunctiva normal. HEENT: External appearance of nose and ears normal, oral cavity grossly normal. NECK: JVD not raised; masses not palpable. HEART: First and second heart sounds are normal; no edema. LUNGS: Respiratory rate increased, some basal Velcro crackles . ABDOMEN: Soft, nontender, liver spleen not palpable, no masses palpable. PSYCH: Alert and oriented x3; mood and affect normal. MUSCULOSKELETAL: Evidence of OA especially in the hands INVESTIGATIONS, reviewed in the clinical context: White count 13.1 hemoglobin 8.8 progression 3.9 creatinine 0.9 KIKO-severe central mitral regurgitation, normal LV function high resolution CT chest-trach pulmonary fibrosis Assessment: --Persistent atrial fibrillation rate controlled -Permanent pacemaker -Acute on Chronic congestive heart failure, diastolic exacerbation, but normal ejection fraction,-stabilized -Idiopathic pulmonary fibrosis -Diabetes mellitus type II -GERD -Essential hypertension -Hyperlipidemia -Primary osteoarthritis -Chronic T8 compression fracture for which patient uses a brace -Diabetic peripheral neuropathy -Primary osteoarthritis -Moderate to severe tricuspid regurgitation -Mild acute obstructive asthma exacerbation Plan: clinically improved. Her prognosis is guarded. Discussed at length with the social media assistant. Hopefully discharge to [facility] tomorrow.patient is reprinted. Lasix. Prednisone cutback.we will DC Aldactone.
[2020-04-08 04:40] VITALS: RESP 16
[2020-04-08 06:04] LABS: Glucose,Whole Blood 57 mg/dL (75-99)
[2020-04-08 06:26] LABS: Glucose,Whole Blood 61 mg/dL (75-99)
[2020-04-08] MEDS: INSULIN ASPART (NovoLOG) 100 UNIT/ML VIAL SQ SCH ×2 (06:29→12:21)
[2020-04-08 06:44] LABS: Glucose,Whole Blood 73 mg/dL (75-99)
[2020-04-08 07:00] LABS: Glucose,Whole Blood 98 mg/dL (75-99)
[2020-04-08 07:05] LABS: Calcium 8.9 mg/dL (8.4-10.2)
[2020-04-08] MEDS: SYMBICORT 160-4.5 MCG INHALER INHALATION SCH (07:50)
[2020-04-08] MEDS: IPRATROPIUM-ALBUTEROL 3 ML NEB INHALATION SCH ×2 (07:50→11:01)
[2020-04-08] MEDS ORDERED: FUROSEMIDE 40 MG TAB PO SCH (09:00)
[2020-04-08 09:40] VITALS: TEMP 97.6
[2020-04-08] MEDS: POTASSIUM CHLORIDE ER 10 MEQ TAB.ER.PRT PO SCH (09:43)
[2020-04-08] MEDS: APIXABAN 5 MG TAB PO SCH (09:43)
[2020-04-08] MEDS: GLIMEPIRIDE 2 MG TAB PO SCH (09:43)
[2020-04-08] MEDS: predniSONE 10 MG TAB PO SCH (09:43)
[2020-04-08] MEDS: VERAPAMIL 80 MG TAB PO SCH (09:43)
[2020-04-08 11:45] LABS: Glucose,Whole Blood 188 mg/dL (75-99)
[2020-04-08 11:57] VITALS: BP 108/55; PULSE 70
[2020-04-08] MEDS: HYDROcodone/APAP 10-325MG 1 EACH TAB PO PRN (12:19)
--- NOTE | 2020-04-08 14:42 | P.DS ---
Providers Date of admission: 04/03/20 11:27 Expected date of discharge: 04/08/20 Attending physician: Jeffrey Fleming Consults: 04/01/20 11:36 Consult Physician Routine Consulting Provider: Aby Vogt Consult Reason/Comments: copd, chf Do you want consulting provider notified?: Yes 04/01/20 13:57 Consult Physician Urgent Consulting Provider: Rodolfo Duarte Consult Reason/Comments: elevated troponin Do you want consulting provider notified?: Yes Primary care physician: [facility] Course: Chief Complaint: Weak and tired Interval history: This is a pleasant 85-year-old patient of Dr. Royal Beaver. Rather extensive medical history. 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 wear a brace because of her T8 fracture. Also treated for possible T8 discitis back in September 2019. Admitted with CHF exacerbation, COPD exacerbation.treated with Lasix bronchodilator KIKO showed severe mitral regurgitation.high resolutionl CT of the chest showed-significant pulmonary fibrosis. Today- patient feels weak and tired. Discussed at length with the patient. This is a Lasix cutback. Questions answered Discussion and discharge planning more than 35 minutes Consultations: . Dr. Knox from pulmonary Dr. Edwardo Gibson from cardiology Physical examination: VITAL SIGNS: Pulse 70, 16, 108/55, 96% room air GENERAL: Propped up in bed EYES: Pupils equal. Conjunctiva normal. HEENT: External appearance of nose and ears normal, oral cavity grossly normal. NECK: JVD not raised; masses not palpable. HEART: First and second heart sounds are normal; no edema. LUNGS: Respiratory rate increased, basal Velcro crackles . ABDOMEN: Soft, nontender, liver spleen not palpable, no masses palpable. PSYCH: Alert and oriented x3; mood and affect normal. MUSCULOSKELETAL: Evidence of OA especially in the hands INVESTIGATIONS, reviewed in the clinical context: White count 13.1 hemoglobin 8.8 potassium 4 creatinine 0.9 KIKO-severe central mitral regurgitation, normal LV function high resolution CT chest- pulmonary fibrosis Assessment: --Persistent atrial fibrillation rate controlled -Permanent pacemaker -Acute on Chronic congestive heart failure, diastolic exacerbation, but normal ejection fraction,-stabilized -Idiopathic pulmonary fibrosis -Diabetes mellitus type II -GERD -Essential hypertension -Hyperlipidemia -Primary osteoarthritis -Chronic T8 compression fracture for which patient uses a brace -Diabetic peripheral neuropathy -Primary osteoarthritis -Moderate to severe tricuspid regurgitation, severe central mitral regurgitation -Mild acute obstructive asthma exacerbation Disposition: ECF/[facility] Patient Condition at Discharge: Stable Plan - Discharge Summary Discharge Rx Participant: No New Discharge Prescriptions: New Cefuroxime Axetil [Ceftin] 500 mg PO BID 5 Days #10 tab Atorvastatin [Lipitor] 20 mg PO HS #30 tab predniSONE 10 mg PO DIRECTED #30 tab Azithromycin [Zithromax] 500 mg PO DAILY 3 Days #3 tab Ipratropium-Albuterol Nebulize [Duoneb 0.5 mg-3 mg/3 ml Soln] 3 ml INHALATION RT-QID ml Baclofen [Lioresal] 5 mg PO Q8H PRN tab PRN Reason: Muscle Spasm Furosemide [Lasix] 40 mg PO Q48H tab Continue Apixaban [Eliquis] 5 mg PO BID Glimepiride [Amaryl] 2 mg PO BID Nadolol [Corgard] 40 mg PO HS Amiodarone [Cordarone] 100 mg PO HS Verapamil [Isoptin] 80 mg PO BID Omeprazole 40 mg PO DAILY Fluticasone/Salmeterol [Advair 500-50 Diskus] 1 puff INHALATION RT-BID HYDROcodone/APAP 10-325MG [[place] 10-325] 1 tab PO Q4H PRN PRN Reason: Pain Famotidine [Pepcid] 40 mg PO DAILY PRN PRN Reason: Gi Upset Changed Potassium Chloride 10 meq PO Q48H #0 Discontinued predniSONE See Taper PO DIRECTED Levalbuterol Nebulized [Xopenex Nebulized] 1.25 mg INHALATION RT-QID PRN PRN Reason: Shortness Of Breath Furosemide [Lasix] 40 mg PO DAILY Baclofen 10 - 20 mg PO HS PRN PRN Reason: Muscle Spasm Discharge Medication List Apixaban [Eliquis] 5 mg PO BID 11/24/14 [History] Glimepiride [Amaryl] 2 mg PO BID 06/07/15 [History] Nadolol [Corgard] 40 mg PO HS 05/20/16 [History] Amiodarone [Cordarone] 100 mg PO HS 11/27/17 [History] Omeprazole 40 mg PO DAILY 06/10/18 [History] Verapamil [Isoptin] 80 mg PO BID 06/10/18 [History] Fluticasone/Salmeterol [Advair 500-50 Diskus] 1 puff INHALATION RT-BID 06/03/19 [History] HYDROcodone/APAP 10-325MG [[place] 10-325] 1 tab PO Q4H PRN 03/26/20 [History] Famotidine [Pepcid] 40 mg PO DAILY PRN 04/01/20 [History] Atorvastatin [Lipitor] 20 mg PO HS #30 tab 04/03/20 [Rx] Azithromycin [Zithromax] 500 mg PO DAILY 3 Days #3 tab 04/03/20 [Rx] Cefuroxime Axetil [Ceftin] 500 mg PO BID 5 Days #10 tab 04/03/20 [Rx] predniSONE 10 mg PO DIRECTED #30 tab 04/03/20 [Rx] Baclofen [Lioresal] 5 mg PO Q8H PRN tab 04/08/20 [Rx] Furosemide [Lasix] 40 mg PO Q48H tab 04/08/20 [Rx] Ipratropium-Albuterol Nebulize [Duoneb 0.5 mg-3 mg/3 ml Soln] 3 ml INHALATION RT-QID ml 04/08/20 [Rx] Potassium Chloride 10 meq PO Q48H #0 04/08/20 [Rx] Follow up Appointment(s)/Referral(s): [facility], [NON-STAFF] - Lloyd Mahmood DO [STAFF PHYSICIAN] - 1-2 Days Royal Farias MD [Primary Care Provider] - As Needed Jaylon Malone DO [Doctor of Osteopathic Medicine] - 04/23/20 10:00 am Mookie Gibson MD [STAFF PHYSICIAN] - 05/11/20 2:00 pm Praful Jules MD [STAFF PHYSICIAN] - 1 Week (Speech therapy recommends follow up with GI for c/o difficulty swallowing ) Activity/Diet/Wound Care/Special Instructions: Cardiac diet Activity as tolerated. Discharge Disposition: TRANSFER TO SNF/ECF
--- NOTE | 2020-04-08 15:13 | PN ---
PROGRESS NOTE Vashti is an 85-year-old lady with history of permanent atrial fibrillation, apical hypertrophy, severe mitral regurgitation, pulmonary hypertension, who is admitted to hospital with congestive heart failure exacerbation. On a transesophageal echo, she has severe mitral regurgitation. Patient opted not to have any surgical intervention. Currently, her predominant problem is fatigue, tiredness and lack of mobility. She needs to rebuild her strength. She will go to a assisted. On exam, heart rate is 73 beats per minute. Blood pressure is 98/49, respiratory rate is 18. There is no jugular venous distention. Chest exam reveals good air entry bilaterally. Heart exam reveals first and second heart sounds. There is a pansystolic murmur at the apex. Abdomen is soft. Exam of the extremities did not reveal any edema. Peripheral pulses are felt. LABS: Show that the potassium is 4, creatinine is 0.6. Last hemoglobin was 8.8. ASSESSMENT: 1. Acute exacerbation of chronic diastolic heart failure. 2. Severe mitral regurgitation. PLAN: Patient will continue current medications. She is stable to be transferred to the assisted. MMODL / IJN: [id number] /
--- NOTE | 2020-04-08 16:14 | PN ---
PROGRESS NOTE PULMONARY/CRITICAL CARE PROGRESS NOTE: DATE OF SERVICE: 04/08/2020 This patient is an 85-year-old female who sees Dr. Royal Farias [facility] in [place] as her primary. The patient resides in room 352. Her primary complaints include weakness and fatigue. The patient states that she may be discharged in the next 24 to 48 hours to [facility]. The patient recently had a transesophageal echocardiogram which apparently showed severe mitral regurgitation and normal LV systolic function. She also has moderate to severe tricuspid regurgitation. The patient otherwise is doing about the same. She is not requiring any supplemental oxygen. She denies any chest pain or chest discomfort. There is no fever, chills, cough or phlegm production. She also denies any nausea, vomiting, diarrhea or abdominal pain. PHYSICAL EXAMINATION: VITAL SIGNS: Current vital signs are reviewed. Her temperature was 97.6, heart rate 72, respiratory rate 16, blood pressure 108/55, mean 72, room-air saturation 96%. GENERAL APPEARANCE: Appears in no acute distress. HEENT: Examination is grossly unremarkable. NECK: Supple. Full range of motion. No adenopathy. Neck veins are flat. CARDIOVASCULAR: Examination reveals regular rhythm and rate. Heart rate 72. Heart sounds are distant. There is a systolic murmur. No S3, S4. LUNGS: Lungs reveal mostly clear breath sounds. A few scattered crackles. No wheezes. No rhonchi. ABDOMEN: Soft. Bowel sounds are heard. EXTREMITIES: Intact. No cyanosis, clubbing or edema. SKIN: Without rash. NEUROLOGIC: Neurologic examination is brief but nonfocal. LABS: No labs today other than a sodium of 136, potassium 4, chloride 100, CO2 28. Anion gap is 8. BUN and creatinine were 42 and 0.95. Sugar was 188. Microbiologic studies are all negative. No recent chest x-ray. Medications are reviewed. ASSESSMENT: 1. Acute exacerbation of diastolic congestive heart failure with preserved left ventricular systolic function. 2. Valvular heart disease in the form of severe mitral and tricuspid regurgitation. 3. Mild acute exacerbation of asthma. 4. Chronic atrial fibrillation, currently on Eliquis, status post permanent pacemaker insertion. 5. Type 2 diabetes mellitus. 6. Gastroesophageal reflux disease. 7. Hypertension. 8. Hyperlipidemia. 9. Osteoporosis. 10.Chronic anemia. 11.Anxiety/depression. 12.History of Enterococcus faecalis bacteremia. 13.Chronic back pain and T8 spinal fracture. 14.Osteoarthritis. 15.Limited interstitial changes on CT scan. PLAN: Currently the patient is doing reasonably well. She may be discharged to [facility] in the next 24 to 48 hours. Her pulmonary status is stable. We will continue to follow. The CT scan was shared with her. No additional recommendations are made. Prognosis is guarded. MMBRYANL / NEVAN: [id number] /
== END 2020-04-08 13:49 | DRG 292 ==
LOC: EC 08:28 → INTOOBSV 10:33 → 3SCARD 10:33 → OBSVTOIN 04-03 11:27
PROVIDERS: ADMIT Hospitalist; ATTEND Hospitalist
DX: I11.0 Hypertensive heart disease with heart failure (principal); I48.21 Permanent atrial fibrillation; E44.1 Mild protein-calorie malnutrition; J44.1 Chronic obstructive pulmonary disease with (acute) exacerbation; J45.21 Mild intermittent asthma with (acute) exacerbation; I50.33 Acute on chronic diastolic (congestive) heart failure; Z11.59 Encounter for screening for other viral diseases; I27.29 Other secondary pulmonary hypertension; J84.112 Idiopathic pulmonary fibrosis; I49.5 Sick sinus syndrome; E11.42 Type 2 diabetes mellitus with diabetic polyneuropathy; I42.9 Cardiomyopathy, unspecified; Z79.01 Long term (current) use of anticoagulants; I08.1 Rheumatic disorders of both mitral and tricuspid valves; E78.5 Hyperlipidemia, unspecified; M19.91 Primary osteoarthritis, unspecified site; K21.9 Gastro-esophageal reflux disease without esophagitis; I25.2 Old myocardial infarction; G89.29 Other chronic pain; M81.0 Age-related osteoporosis without current pathological fracture; M54.5 Low back pain; D64.9 Anemia, unspecified; F41.9 Anxiety disorder, unspecified; F32.9 Major depressive disorder, single episode, unspecified; M48.54XD Collapsed vertebra, not elsewhere classified, thoracic region, subsequent encounter for fracture with routine healing; R09.02 Hypoxemia; E87.6 Hypokalemia; R79.89 Other specified abnormal findings of blood chemistry; M62.838 Other muscle spasm; Z79.84 Long term (current) use of oral hypoglycemic drugs; Z79.899 Other long term (current) drug therapy; Z87.01 Personal history of pneumonia (recurrent); Z87.81 Personal history of (healed) traumatic fracture; Z90.49 Acquired absence of other specified parts of digestive tract; Z95.0 Presence of cardiac pacemaker; Z98.51 Tubal ligation status; Z98.890 Other specified postprocedural states; Z98.42 Cataract extraction status, left eye; Z98.41 Cataract extraction status, right eye; Z71.3 Dietary counseling and surveillance; Z86.19 Personal history of other infectious and parasitic diseases; Z88.5 Allergy status to narcotic agent; Z88.8 Allergy status to other drugs, medicaments and biological substances; Z80.3 Family history of malignant neoplasm of breast
CPT/HCPCS: 36415; 71045; 71046; 71250; 80048; 80053; 83605; 83735; 83880; 84132; 84484; 85025; 85027; 85610; 85730; 87040; 87635; 93005; 93312; 93320; 93325; 94640; 94760; 96365; 96366; 96374; 96375; 99285